=== PATIENT | male | born 1945 | race Caucasian/White ===

== ENCOUNTER 2016-10-19 03:42 | Inpatient (IN) | payer MEDICARE ==
[~2016-10-19] VITALS: Ht 170.2 cm; Wt 89.0 kg
[2016-10-19] VITALS (7 sets, daily range): BP systolic 100–110; BP diastolic 46–73
[~2016-10-19 03:42] MED LIST: ASPI-482 PO; Hydrocodone/Acetaminophen PO; METO25TA2 PO; MILK200C2 PO; OMEG1CAP27 PO; SIMV40TA PO; TAMS0.4C97 PO; UBID200C7 PO
[2016-10-19 04:13] LABS: BASO % 1 % (0-3); EOS % 1 % (0-3); HEMATOCRIT 44.7 % (39.0-53.0); LYMPH # 1.7 x10^3/uL (1.0-4.8); LYMPH % 25 % (24-48); MEAN CORPUSCULAR HEMOGLOBIN 30 pg (25-35); MEAN CORPUSCULAR HGB CONC 34 g/dL (31-37); MEAN CORPUSCULAR VOLUME 89 fL (79-100); MONO % 10 % (0-9); NEUT % 62 % (31-73); PLATELET COUNT 114 x10^3/uL (140-400); RED BLOOD COUNT 5.02 x10^6/uL (4.30-5.70); RED CELL DISTRIBUTION WIDTH 14.6 % (11.5-14.5); WHITE BLOOD COUNT 6.9 x10^3/uL (4.0-11.0)
[2016-10-19] MEDS ORDERED: ONDANSETRON PF 4 MG/2 ML VIAL. IV ONE (04:15)
[2016-10-19] MEDS ORDERED: LIDO:MAALOX:DONNATAL 1:1:1 15 ML SINGLE DOSE SWSW ONE (04:15)
[2016-10-19 04:26] LABS: CALCIUM 8.5 mg/dL (8.5-10.1); GFR 73.2; POTASSIUM 4.1 mmol/L (3.5-5.1)
[2016-10-19 04:32] LABS: ALBUMIN 3.8 g/dL (3.4-5.0); ALBUMIN/GLOBULIN RATIO 1.4 (1.0-1.7); TOTAL BILIRUBIN 0.6 mg/dL (0.2-1.0); TOTAL PROTEIN 6.5 g/dL (6.4-8.2)
--- NOTE | 2016-10-19 05:03 | PHYS DOC ---
Past Medical History Past Medical History: Hypertension, Kidney Stone, NM, Other Additional Past Medical Histor: NM(12-15 YRS AGO) Past Surgical History: Cholecystectomy, Other Additional Past Surgical Histo: cardiac stents Alcohol Use: None Drug Use: None Adult General Chief Complaint Chief Complaint: CHEST PAIN HPI HPI Patient is a 71 year old gentleman who presents here today complaining of midepigastric chest pain and a burning sensation as well as heart palpitations. Patient reports she was feeling dizzy and weak earlier today. Patient is also complaining of indigestion. Patient with a past medical history significant for coronary artery disease. Patient reports he had stents put in approximately 12 years ago. Patient reports when he had his stents put in his symptoms were somewhat similar to today symptoms. Patient reports he actually recommended for right lower abdominal pain approximately 12 years ago and also indigestion at that time he was diaphoretic and they determined that he was having a heart attack. Patient denies any liver longer kidney problems. Patient reports she does have a history of hypertension. Patient denies any abdominal surgeries. Patient has no known drug allergies. Patient is on aspirin and Toprol and Zocor. Patient has any fevers shakes chills. Patient reports she was feeling nauseous and short of breath with the discomfort. Patient has any vomiting or diarrhea. Patient has any cough cold runny nose. Patient's physical exam was unremarkable. Patient's heart was regular rate and rhythm. Lungs were clear. No wheezing rales or rhonchi. Patient did have multiple episodes of bigeminy on the EKG. During which time he does report palpitations in his chest and some dizziness. Patient's ER workup was unremarkable. Patient's initial EKG was consistent with bigeminy. A repeat EKG was done which revealed normal sinus rhythm at a heart rate of [address]-T wave abnormalities with no evidence of ST elevation NM. Patient's labs were all negative. Patient's troponin was negative. Patient's CBC and chemistry are all negative as well. Assessment and plan #1 71-year-old gentleman with nonspecific chest pain with a significant cardiac risk factors for prior NM. Patient presents here today with symptoms similar to his prior NM pain that he had approximately 12 years ago. Patient will be admitted to the hospital for further evaluation. Patient is high risk for coronary artery disease given his symptoms and his history. Review of Systems Review of Systems Constitutional: Denies fever or chills [] Eyes: Denies change in visual acuity, redness, or eye pain [] HENT: Denies nasal congestion or sore throat [] All other review systems are negative except as documented in the history of present illness portion. Current Medications Current Medications Current Medications Medications (Trade) Dose Ordered Sig/Kaylie Start Time Stop Time Status Last Admin Dose Admin Multi-Ingredient Mouthwash/Gargle (Gi Cocktail Single Dose) 15 ml 1X ONCE 10/19/16 04:15 10/19/16 04:16 DC 10/19/16 04:17 15 ML Ondansetron HCl (Zofran) 4 mg 1X ONCE 10/19/16 04:15 10/19/16 04:16 DC 10/19/16 04:31 4 MG Allergies Allergies Allergies Coded Allergies Type Severity Reaction Last Updated Verified No Known Drug Allergies 03/03/14 No Physical Exam Physical Exam Constitutional: Well developed, well nourished, no acute distress, non-toxic appearance. [] HENT: Normocephalic, atraumatic, bilateral external ears normal, oropharynx moist, no oral exudates, nose normal. [] Eyes: PERRLA, EOMI, conjunctiva normal, no discharge. [] Neck: Normal range of motion, no tenderness, supple, no stridor. [] Cardiovascular:Heart rate regular rhythm, no murmur [] Lungs & Thorax: Bilateral breath sounds clear to auscultation [] Abdomen: Bowel sounds normal, soft, no tenderness, no masses, no pulsatile masses. [] Skin: Warm, dry, no erythema, no rash. [] Back: No tenderness, no CVA tenderness. [] Extremities: No tenderness, no cyanosis, no clubbing, ROM intact, no edema. [] Neurologic: Alert and oriented X 3, normal motor function, normal sensory function, no focal deficits noted. [] Psychologic: Affect normal, judgement normal, mood normal. [] Current Patient Data Vital Signs Vital Signs Date Time Temp Pulse Resp B/P (MAP) Pulse Ox O2 Delivery O2 Flow Rate FiO2 10/19/16 03:45 98.0 101 18 140/71 (94) 94 Room Air 98.0 Lab Values Laboratory Tests Test 10/19/16 03:55 White Blood Count 6.9 x10^3/uL (4.0-11.0) Red Blood Count 5.02 x10^6/uL (4.30-5.70) Hemoglobin 15.0 g/dL (13.0-17.5) Hematocrit 44.7 % (39.0-53.0) Mean Corpuscular Volume 89 fL (79-100) Mean Corpuscular Hemoglobin 30 pg (25-35) Mean Corpuscular Hemoglobin Concent 34 g/dL (31-37) Red Cell Distribution Width 14.6 % (11.5-14.5) H Platelet Count 114 x10^3/uL (140-400) L Neutrophils (%) (Auto) 62 % (31-73) Lymphocytes (%) (Auto) 25 % (24-48) Monocytes (%) (Auto) 10 % (0-9) H Eosinophils (%) (Auto) 1 % (0-3) Basophils (%) (Auto) 1 % (0-3) Neutrophils # (Auto) 4.3 x10^3uL (1.8-7.7) Lymphocytes # (Auto) 1.7 x10^3/uL (1.0-4.8) Monocytes # (Auto) 0.7 x10^3/uL (0.0-1.1) Eosinophils # (Auto) 0.1 x10^3/uL (0.0-0.7) Basophils # (Auto) 0.0 x10^3/uL (0.0-0.2) D-Dimer (Ana) 0.56 ug/mlFEU (0.00-0.50) H Sodium Level 140 mmol/L (136-145) Potassium Level 4.1 mmol/L (3.5-5.1) Chloride Level 105 mmol/L (98-107) Carbon Dioxide Level 27 mmol/L (21-32) Anion Gap 8 (6-14) Blood Urea Nitrogen 13 mg/dL (8-26) Creatinine 1.0 mg/dL (0.7-1.3) Estimated GFR (Cockcroft-Gault) 73.2 BUN/Creatinine Ratio 13 (6-20) Glucose Level 117 mg/dL (70-99) H Calcium Level 8.5 mg/dL (8.5-10.1) Total Bilirubin 0.6 mg/dL (0.2-1.0) Aspartate Amino Transferase (AST) 19 U/L (15-37) Alanine Aminotransferase (ALT) 15 U/L (16-63) L Alkaline Phosphatase 72 U/L (46-116) Troponin I Quantitative < 0.017 ng/mL (0.000-0.055) Total Protein 6.5 g/dL (6.4-8.2) Albumin 3.8 g/dL (3.4-5.0) Albumin/Globulin Ratio 1.4 (1.0-1.7) Lipase 156 U/L (73-393) Laboratory Tests 10/19/16 03:55 Laboratory Tests 10/19/16 03:55 EKG EKG [] Radiology/Procedures Radiology/Procedures [] Course & Med Decision Making Course & Med Decision Making Pertinent Labs and Imaging studies reviewed. (See chart for details) [] Dragon Disclaimer Dragon Disclaimer This electronic medical record was generated, in whole or in part, using a voice recognition dictation system. Departure Departure Impression: Primary Impression: Unstable angina Disposition: ADMITTED INPATIENT Admitting Physician: Isabel Noble Condition: IMPROVED Referrals: UNKNOWN PCP NAME (PCP) GULSHAN HAYWOOD MD Oct 19, 2016 05:03
[2016-10-19] MEDS ORDERED: METO25TA9 PO (05:38)
[2016-10-19] MEDS ORDERED: SIMV40TA PO (05:38)
[2016-10-19] MEDS ORDERED: NITROGLYCERIN SUBLINGUAL 0.4 MG BOTTLE OF 25. SL PRN (05:45)
--- NOTE | 2016-10-19 05:46 | ACF ---
Admission Forms Criteria CARDIOLOGY GRG Clinical Indications for Admission to Inpatient Care ( Place 'X' for any and all applicable criteria): Hospital admission is needed for appropriate care of the patient because of ANY ONE of the following (1): [ ] I. Hemodynamic instability as indicated by ALL of the following (1)(2)(3) (4)(5) [ ]a) Vital signs or other findings not as expected for chronic patient condition or baseline [ ]b) Instability indicated by ANY ONE of the following: [ ]i) Hypotension [ ]ii) Symptomatic Tachycardia unresponsive to treatment ( e.g., analgesia, fluids, sedation as indicated) [ ]iii) Inadequate perfusion indicated by ANY ONE of the following: [ ] 1) Lactic acidosis (> 2 mmol/L) [ ] 2) New abnormal capillary refill (> 3 seconds) [ ] 3) Reduced urine output [ ] 4) New altered mental status [ ]iv) Orthostatic vital sign changes unresponsive to treatment (e.g., fluids) [ ]v) IV inotropic or vasopressor medication required to maintain adequate blood pressure or perfusion [ ] II. Severe heart failure as indicated by ANY ONE of the following(17)(18) [ ]a) Respiratory distress [ ]b) Hypotension [ ]c) Anasarca (refractory to outpatient therapy) [ ]d) Cardiac arrhythmias of immediate concern [ ]e) Myocardial ischemia [ ] III. Cardiac arrhythmias or findings of immediate concern indicated by ANY ONE of the following (19)(20): [ ] a) Heart rhythms that are inherently dangerous or unstable indicated by ANY ONE of the following (21)(22)(23): [ ] i) Resuscitated ventricular fibrillation or cardiac arrest [ ] ii) Ventricular escape rhythm [ ] iii) Sustained ventricular tachycardia (30 seconds or more of ventricular rhythm at greater than 100 beats per minute) [ ] iv) Nonsustained ventricular tachycardia and ANY ONE of the following: [ ] 1) Suspected cardiac ischemia as cause or consequence of ventricular tachycardia [ ] 2) In setting of acute myocarditis [ ] b) Unstable cardiac conduction defects indicated by ANY ONE of the following(23)(24)(25) [ ] i) Type II second-degree atrioventricular block [ ]ii) Third-degree atrioventricular block [ ]iii) New-onset left bundle branch block with suspected myocardial ischemia [ ]c) Any heart rhythm and ANY ONE of the following (21)(22)(26)(27) (28) [ ] i) Continuous long-term ECG monitoring needed (e.g., initiation of drug requiring monitoring for more than 24 hours) [ ] ii) Patient has automatic implanted cardioverter defibrillator that is repeatedly firing, malfunctioning, or in need of immediate adjustment of settings beyond the scope of ambulatory or observation care [ ]d) Heart rhythms of concern due to ANY ONE of the following: [ ] i) Hypotension [ ] ii) Respiratory distress [ ] iii) Association with other significant symptoms (e.g., bradycardia with syncope or ongoing dizziness, supraventricular tachycardia with chest pain (14)(15)(17) [ ] IV. Monitoring for cardiac contusion beyond the scope of observation care needed [A](30)(31)(32) [ ] V. Surgical or device complication (e.g., valve replacement complication , pacemaker dysfunction) (35)(41)(44)(45)(46) [ ] . Inpatient palliative care needed. [B](49) Also use Inpatient Palliative Care Criteria [ ] VII. Nonbacterial thrombotic (marantic) endocarditis (36)(43)(47)(48) [X] VIII. Cardiology condition, symptom, or finding for which emergency and observation care has failed or are not considered appropriate. [ ] IX. Acute valvular disease requiring inpatient as indicated by ANY ONE of the following (41) [ ]a) Acute valvular regurgitation (42) [ ]b) Noninfectious valvulitis (43) [ ]c) Obstructive valve thrombosis [ ]d) Paravalvular leak [ ]e) Other significant valvular disorder remaining after emergency or observation level of care (as appropriate) [ ]X. Pericardial disease requiring inpatient treatment as indicated by ANY ONE of the following (33)(34)(35)(36)(37) [ ]a) Suspected tamponade (38)(39)(40) [ ]b) Hemopericardium [ ]c) Other significant pericardial disorder remaining after emergency or observation level of care (as appropriate) [ ] XI. Cardiac ischemia beyond scope of emergency and observation care. [ ] XII. Hypertension requiring inpatient treatment as indicated by ANY ONE of the following (6)(7)(8) [ ]a) SBP greater than 220 mm Hg or DBP greater than 120 mmHg despite treatment [ ]b) SBP greater than 140 mm Hg or DBP greater than 100 mm Hg with evidence of acute end organ damage as indicated by ANY ONE of the following [ ] i) Encephalopathy [ ] ii) Acute renal failure as indicated by new onset of ANY ONE of the following (9)(10)(11)(12)(13) [ ]1) 3-fold rise in serum creatinine from baseline [ ]2) Serum creatinine greater than 4 mg/dL ( 354 micromoles/L) with acute rise greater than 0.5 mg/dL (44.2 micromoles/L) [ ]3) Reduction of more than 75% in estimated glomerular filtration rate from baseline [ ]4) Estimated glomerular filtration rate less than 35 mL/min/1.73m2 (0.59 mL/sec/1.73m2) in child up to 18 years of age [ ]5) Cessation of urine output indicated by ALL of the following [ ]A. Adequate volume status [ ]B. Inadequate urine output as indicated by ANY ONE of the following [ ]a. Urine output less than 0.3 mL/kg/hr for 24 hours [ ]b. Anuria (urine output less than 0.1 mL/kg/hr) for 12 hours [ ] iii) Aortic dissection [ ] iv) Myocardial Ischemia [ ] v) Left ventricular heart failure [ ]vi) Retinal Hemorrhage [ ]vii) Other significant finding [ ]c) Hypertension in child requiring inpatient treatment as indicated by ALL of the following(14)(15)(16) [ ] i) Outpatient treatment not effective, not available, or not appropriate [ ]ii) SBP or DBP greater than 95th percentile for age [ ]iii) Evidence of acute end organ damage as indicated by ANY ONE of the following [ ]1) Altered mental status [ ]2) Acute renal failure as indicated by new onset of ANY ONE of the following(9)(10)(11)(12)(13) [ ]A. 3-fold rise in serum creatinine from baseline [ ]B. Serum creatinine greater than 4 mg/dL (354 micromoles/L) with acute rise greater than 0.5 mg/dL (44.2 micromoles/L) [ ]C. Reduction of more than 75% in estimated glomerular filtration rate from baseline [ ]D. Estimated glomerular filtration rate less than 35 mL/min/1.73m2 (0.59 mL/sec/1.73m2) in child up to 18 years of age [ ]E. Cessation of urine output indicated by ALL of the following [ ]a. Adequate volume status [ ]b. Inadequate urine output as indicated by ANY ONE of the following [ ]i) Urine output less than 0.3 mL/kg/hr for 24 hours [ ]ii) Anuria ( urine output less than 0.1 mL/kg/hr) for 12 hours [ ]3) Severe headache [ ]4) Visual disturbance [ ]5) Retinal hemorrhage [ ]6) Other significant finding [ ]XIII. Complications of transplanted heart indicated by ANY ONE of the following(61): [ ]a) Acute graft rejection requiring inpatient management (eg, intravenous immunosuppression)(62)(63) [ ]b) Acute graft heart failure indicated by ANY ONE of the following(64): [ ]i) Hemodynamic instability [ ]ii) Cardiac arrhythmias of immediate concern [ ]iii) Pulmonary edema that is very severe (eg, mechanical ventilation needed, imminent or likely, need for 100% oxygen to keep oxygen saturation above 90%) [ ]iv) Pulmonary edema that is persistent as indicated by ALL of the following: [ ]1) New need for oxygen therapy to keep oxygen saturation above 90% (or increased FiO2 need from baseline) [ ]2) Has not improved sufficiently with emergency department or observation care IV diuretics or other heart failure treatments[E] [ ]v) Altered mental status that is severe or persistent [ ]vi) Increased creatinine (new on laboratory test) with reduction of more than 50% in estimated glomerular filtration rate from baseline [ ]vii) Progressively (ongoing) rising creatinine (known from past laboratory test) with reduction of more than 25% in estimated glomerular filtration rate from baseline [ ]viii) Acute renal failure [ ]ix) Acute peripheral ischemia (eg, examination shows pulseless, cool, mottled, or cyanotic extremity) [ ]x) Pulmonary artery catheter monitoring needed [ ]xi) Other sign or symptom of heart failure requiring inpatient treatment (ie, too severe or not responsive to outpatient and observation care treatment) [ ]c) Infection requiring inpatient management (eg, Hemodynamic instability, need for intravenous antimicrobial treatment)(66)(67)(68)(69)(70) [ ]d) Cardiac allograft vasculopathy requiring inpatient management ( eg evidence of cardiac ischemia)(71) [ ]e) Other complication of transplanted heart (eg, stroke, severe pulmonary hypertension, severe valvular dysfunction) requiring inpatient management(72) The original [facility] content created by [facility] has been revised. The portions of the content which have been revised are identified through the use of italic text or in bold, and [facility] has neither reviewed nor approved the modified material. All other unmodified content is copyright [facility]. Please see references footnoted in the original [facility] edition 2016 Admission Criteria Met?: Yes GILBERT SANDHU Oct 19, 2016 05:46
[2016-10-19] MEDS ORDERED: ACETAMINOPHEN 325 MG TABLET. PO PRN ×2 (06:00→17:15)
[2016-10-19] MEDS ORDERED: MORPHINE SULFATE 2 MG/ML DISP.SYRIN. IV PRN (06:00)
[2016-10-19] MEDS ORDERED: ONDANSETRON PF 4 MG/2 ML VIAL. IV PRN ×2 (06:00→17:15)
[2016-10-19] MEDS: IV NORMAL SALINE 1000ML BAG 1,000 ML IV SCH ×3 (06:15→22:00)
--- NOTE | 2016-10-19 06:36 | EKG ---
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
--- NOTE | 2016-10-19 07:28 | RAD ---
EXAM: Chest one view. HISTORY: Chest pain. COMPARISON: 11/15/2003. FINDINGS: A frontal view of the chest is obtained. Mild airspace opacities in the left greater than right bases may indicate atelectasis or mild infiltrates. The inspiration is small. There is no pneumothorax or pleural effusion. The heart is not enlarged. IMPRESSION: 1. Correlate for evidence of infection to differentiate basilar atelectasis from mild infiltrates.
[2016-10-19] MEDS ORDERED: Citracal PO (07:39)
[2016-10-19] MEDS ORDERED: IOHEXOL 300 MG/ML 75 ML VIAL IV ONE (09:45)
[2016-10-19] MEDS ORDERED: CONTRAST GIVEN MC PRN (09:45)
--- NOTE | 2016-10-19 10:22 | EKG ---
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
[2016-10-19] MEDS ORDERED: MAG HYDROX/ALUMINUM HYD/SIMETH 30 ML ORAL.SUSP PO ONE (10:45)
[2016-10-19] MEDS ORDERED: PANTOPRAZOLE IV PUSH 40 MG VIAL. IVP ONE (10:45)
--- NOTE | 2016-10-19 10:48 | PDOC2 ---
CARDIAC CONSULT DATE OF CONSULT Date of Consult DATE: 10/19/16 TIME: 10:38 REASON FOR CONSULT Reason for Consult: chest pain REFERRING PHYSICIAN Referring Physician: Dr. Dana Cheung SOURCE Source: Chart review, Patient HISTORY OF PRESENT ILLNESS HISTORY OF PRESENT ILLNESS 71 year old male with a > 2 weeks history of worsening epigastric pain described as dull pain with radiation into back and associated with dyspnea , dizziness, and weakness. Has not treated with OTC meds. Saw chiropractor for adjustment as he though a previous back injury involving a ladder was pressing on his hiatal hernia and causing his symptoms. Troponin level not consistent with AMI and no acute changes in EKG. Frequent PVCs and PACs on telemetry. Reason for Visit: CP PAST MEDICAL HISTORY Cardiovascular: HTN, AL (stents X 2 to unknown targets 15 years ago), Hyperlipidemia Pulmonary: No pertinent hx CENTRAL NERVOUS SYSTEM: Other (none) GI: GERD (?; with HH) Heme/Onc: No pertinent hx Hepatobiliary: No pertinent hx Psych: No pertinent hx Musculoskeletal: low back pain (surgery to L4-L5), Osteoarthritis Infectious disease: No pertinent hx ENT: No pertinent hx Renal/: Other (renal calculi) Endocrine: No pertinent hx Dermatology: No pertinent hx PAST SURGICAL HISTORY Past Surgical History: Tonsillectomy, Other (lumbar laminectomy) FAMILY HISTORY Family History negative for CAD SOCIAL HISTORY Smoke: Quit (15 years ago) ALCOHOL: occassional (6 pack of beer per month) Drugs: None CURRENT MEDICATIONS CURRENT MEDICATIONS Current Medications Medications (Trade) Dose Ordered Sig/Kaylie Route PRN Reason Start Time Stop Time Status Last Admin Dose Admin Ondansetron HCl (Zofran) 4 mg 1X ONCE IV 10/19/16 04:15 10/19/16 04:16 DC 10/19/16 04:31 Multi-Ingredient Mouthwash/Gargle (Gi Cocktail Single Dose) 15 ml 1X ONCE SWSW 10/19/16 04:15 10/19/16 04:16 DC 10/19/16 04:17 Sodium Chloride 1,000 ml @ 125 mls/hr Q8H IV 10/19/16 06:00 10/20/16 05:59 10/19/16 06:15 Iohexol (Omnipaque 300 Mg/ml) 75 ml 1X ONCE IV 10/19/16 09:45 10/19/16 09:46 DC 10/19/16 10:04 ALLERGIES ALLERGIES: Coded Allergies: No Known Drug Allergies (Unverified , 03/03/14) ROS Review of System 14 point review with pertinent positives in HPI PHYSICAL EXAM General: Alert, Oriented X3, Cooperative, No acute distress HEENT: Atraumatic, PERRLA Lungs: Clear to auscultation, Normal air movement Heart: Regular rate, Normal S1, Normal S2, No murmurs, Other (no carotid bruits ) Abdomen: Normal bowel sounds Extremities: No edema, Normal pulses Skin: No rashes Neuro: Normal speech Psych/Mental Status: Mood NL MUSCULOSKELETAL: Osteoarthritic changes both hands VITALS VITALS Vital Signs Date Time Temp Pulse Resp B/P (MAP) Pulse Ox O2 Delivery O2 Flow Rate FiO2 10/19/16 07:00 Room Air 10/19/16 07:00 98.7 67 26 108/73 (85) 94 98.7 LABS Lab: Laboratory Tests Test 10/19/16 03:55 White Blood Count 6.9 x10^3/uL (4.0-11.0) Red Blood Count 5.02 x10^6/uL (4.30-5.70) Hemoglobin 15.0 g/dL (13.0-17.5) Hematocrit 44.7 % (39.0-53.0) Mean Corpuscular Volume 89 fL (79-100) Mean Corpuscular Hemoglobin 30 pg (25-35) Mean Corpuscular Hemoglobin Concent 34 g/dL (31-37) Red Cell Distribution Width 14.6 % (11.5-14.5) Platelet Count 114 x10^3/uL (140-400) Neutrophils (%) (Auto) 62 % (31-73) Lymphocytes (%) (Auto) 25 % (24-48) Monocytes (%) (Auto) 10 % (0-9) Eosinophils (%) (Auto) 1 % (0-3) Basophils (%) (Auto) 1 % (0-3) Neutrophils # (Auto) 4.3 x10^3uL (1.8-7.7) Lymphocytes # (Auto) 1.7 x10^3/uL (1.0-4.8) Monocytes # (Auto) 0.7 x10^3/uL (0.0-1.1) Eosinophils # (Auto) 0.1 x10^3/uL (0.0-0.7) Basophils # (Auto) 0.0 x10^3/uL (0.0-0.2) D-Dimer (Ana) 0.56 ug/mlFEU (0.00-0.50) Sodium Level 140 mmol/L (136-145) Potassium Level 4.1 mmol/L (3.5-5.1) Chloride Level 105 mmol/L (98-107) Carbon Dioxide Level 27 mmol/L (21-32) Anion Gap 8 (6-14) Blood Urea Nitrogen 13 mg/dL (8-26) Creatinine 1.0 mg/dL (0.7-1.3) Estimated GFR (Cockcroft-Gault) 73.2 BUN/Creatinine Ratio 13 (6-20) Glucose Level 117 mg/dL (70-99) Calcium Level 8.5 mg/dL (8.5-10.1) Magnesium Level 2.2 mg/dL (1.8-2.4) Total Bilirubin 0.6 mg/dL (0.2-1.0) Aspartate Amino Transf (AST/SGOT) 19 U/L (15-37) Alanine Aminotransferase (ALT/SGPT) 15 U/L (16-63) Alkaline Phosphatase 72 U/L (46-116) Troponin I Quantitative < 0.017 ng/mL (0.000-0.055) Total Protein 6.5 g/dL (6.4-8.2) Albumin 3.8 g/dL (3.4-5.0) Albumin/Globulin Ratio 1.4 (1.0-1.7) Lipase 156 U/L (73-393) IMAGES IMAGES CXR: Mild airspace opacities in the left greater than right bases may indicate atelectasis or mild infiltrates. The inspiration is small. There is no pneumothorax or pleural effusion. The heart is not enlarged. IMPRESSION: 1. Correlate for evidence of infection to differentiate basilar atelectasis from mild infiltrates. EKG EKG no acute changes; PVCs, PACs ASSESSMENT/PLAN ASSESSMENT/PLAN 1. CP vs epigastric pain EKG and troponin levels not consistent with AMI CAD history with previous stents echo to evaluate LV function and assess for valvular disease pharm MPI to evaluate for ischemia mylanta X 1; IV PPI X 1 2. ventricular ectopy K and Mg WNL resume BB when MPI completed 3. HTN resume meds 4. HLD check FLP continue statin therapy 5. ? 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
[2016-10-19 11:15] LABS: CHOLESTEROL/HDL RATIO 3.3
[2016-10-19] MEDS ORDERED: REGADENOSON 0.4 MG/5 ML DISP.SYRIN. IV ONE (11:15)
--- NOTE | 2016-10-19 13:12 | RAD ---
CTA of the chest with contrast (pulmonary embolism protocol) 10/19/2016 Clinical History: Elevated d-dimer. Tachycardia.. Technique: After the intravenous administration of 75 mL of Isovue-370, contiguous, 2 mm axial sections were obtained through the chest. 3-D MIP coronal and sagittal reconstructed images were obtained. One or more of the following individualized dose reduction techniques were utilized for this study: 1. Automated exposure control. 2. Adjustment of the mA and/or kV according to patient size. 3. Use of iterative reconstruction technique. Findings: No filling defects are seen within the major branches of either pulmonary artery. There is no CT evidence of pulmonary embolism. The heart is mildly enlarged. Scattered atherosclerotic plaque formation is seen along the thoracic aorta and its branches. The thoracic aorta is tortuous but tapers normally. Fairly extensive coronary artery calcifications are seen. Dependent subsegmental atelectasis seen involving both lungs. No area of consolidation, pneumothorax or pleural effusion is noted. Impression: There is no CT evidence of pulmonary embolism.
--- NOTE | 2016-10-19 14:58 | PDOC2 ---
GI CONSULT Reason For Consult: Epigastric pain HPI: HPI: 71 y/o male w/ dizziness, fatigue, and palpitations recently, additionally a long h/o epigastric discomfort attributed to hiatal hernia. Has seen cardiology , had echocardiogram and attempted MPI which was incomplete due to back pain ( chronic from injury). Denies reflux and heartburn, has tried meds for this in the past (unsure which ones), doesn't feel they help epigastric pain. Pain is sometimes worse after eating but can occur randomly. Can radiate to RUQ and toward back, again he attributes this to previous back injury. Had gallbladder workup with his PCP at one point, recalls ultrasound, not sure about HIDA, was told results normal. EGD and colonoscopy years ago, believes normal as well. No NSAID use. Some bloating after eating. Additional h/o constipation improved w/ suppositories and Metamucil. No n/v, weight loss, hematochezia, melena. Occasionally feels large pills "hang up" in midchest/epigastrium. PMH: PMH: HTN, OH (stents X 2), HLD, hiatal hernia, chronic back pain w/ injury (ladder fell on him) years ago, OA, nephrolithiasis, tonsillectomy, lumbar laminectomy FH: Family History: No pertinent hx (no GI cancers) Social History: Smoke: Quit (15 years ago) ALCOHOL: other (other notes suggest 6 pack of beer per month, tells me no alcohol x 15 years) Drugs: None ROS: GEN: +fatigue HEENT: Denies blurred vision, sore throat CV: +palpitations RESP: Denies shortness of air, cough GI: Per HPI : Denies hematuria, dysuria ENDO: Denies weight changes NEURO: Denies confusion, dizziness MSK: +weak +back pain SKIN: Denies jaundice, pruritus Vitals: Vitals: Vital Signs Date Time Temp Pulse Resp B/P (MAP) Pulse Ox O2 Delivery O2 Flow Rate FiO2 10/19/16 14:20 86 27 100/46 (64) 94 Room Air 10/19/16 07:00 98.7 98.7 Labs: Labs: Laboratory Tests Test 10/19/16 03:55 10/19/16 12:04 White Blood Count 6.9 x10^3/uL (4.0-11.0) Red Blood Count 5.02 x10^6/uL (4.30-5.70) Hemoglobin 15.0 g/dL (13.0-17.5) Hematocrit 44.7 % (39.0-53.0) Mean Corpuscular Volume 89 fL (79-100) Mean Corpuscular Hemoglobin 30 pg (25-35) Mean Corpuscular Hemoglobin Concent 34 g/dL (31-37) Red Cell Distribution Width 14.6 % (11.5-14.5) Platelet Count 114 x10^3/uL (140-400) Neutrophils (%) (Auto) 62 % (31-73) Lymphocytes (%) (Auto) 25 % (24-48) Monocytes (%) (Auto) 10 % (0-9) Eosinophils (%) (Auto) 1 % (0-3) Basophils (%) (Auto) 1 % (0-3) Neutrophils # (Auto) 4.3 x10^3uL (1.8-7.7) Lymphocytes # (Auto) 1.7 x10^3/uL (1.0-4.8) Monocytes # (Auto) 0.7 x10^3/uL (0.0-1.1) Eosinophils # (Auto) 0.1 x10^3/uL (0.0-0.7) Basophils # (Auto) 0.0 x10^3/uL (0.0-0.2) D-Dimer (Ana) 0.56 ug/mlFEU (0.00-0.50) Sodium Level 140 mmol/L (136-145) Potassium Level 4.1 mmol/L (3.5-5.1) Chloride Level 105 mmol/L (98-107) Carbon Dioxide Level 27 mmol/L (21-32) Anion Gap 8 (6-14) Blood Urea Nitrogen 13 mg/dL (8-26) Creatinine 1.0 mg/dL (0.7-1.3) Estimated GFR (Cockcroft-Gault) 73.2 BUN/Creatinine Ratio 13 (6-20) Glucose Level 117 mg/dL (70-99) Calcium Level 8.5 mg/dL (8.5-10.1) Magnesium Level 2.2 mg/dL (1.8-2.4) Total Bilirubin 0.6 mg/dL (0.2-1.0) Aspartate Amino Transf (AST/SGOT) 19 U/L (15-37) Alanine Aminotransferase (ALT/SGPT) 15 U/L (16-63) Alkaline Phosphatase 72 U/L (46-116) Troponin I Quantitative < 0.017 ng/mL (0.000-0.055) < 0.017 ng/mL (0.000-0.055) Total Protein 6.5 g/dL (6.4-8.2) Albumin 3.8 g/dL (3.4-5.0) Albumin/Globulin Ratio 1.4 (1.0-1.7) Triglycerides Level 136 mg/dL (0-150) Cholesterol Level 137 mg/dL (0-200) LDL Cholesterol, Calculated 68 mg/dL (0-100) VLDL Cholesterol, Calculated 27 mg/dL (0-40) Non-HDL Cholesterol Calculated 95 mg/dL (0-129) HDL Cholesterol 42 mg/dL (40-60) Cholesterol/HDL Ratio 3.3 Lipase 156 U/L (73-393) Thyroid Stimulating Hormone (TSH) 0.961 uIU/mL (0.358-3.74) Allergies: Coded Allergies: No Known Drug Allergies (Unverified , 03/03/14) Medications: Current Medications Medications (Trade) Dose Ordered Sig/Kaylie Route PRN Reason Start Time Stop Time Status Last Admin Dose Admin Ondansetron HCl (Zofran) 4 mg 1X ONCE IV 10/19/16 04:15 10/19/16 04:16 DC 10/19/16 04:31 Multi-Ingredient Mouthwash/Gargle (Gi Cocktail Single Dose) 15 ml 1X ONCE SWSW 10/19/16 04:15 10/19/16 04:16 DC 10/19/16 04:17 Sodium Chloride 1,000 ml @ 125 mls/hr Q8H IV 10/19/16 06:00 10/20/16 05:59 10/19/16 06:15 Iohexol (Omnipaque 300 Mg/ml) 75 ml 1X ONCE IV 10/19/16 09:45 10/19/16 09:46 DC 10/19/16 10:04 Pantoprazole Sodium (Protonix Vial) 40 mg 1X ONCE IVP 10/19/16 10:45 10/19/16 10:46 DC 10/19/16 11:26 Al Hydroxide/Mg Hydroxide (Mylanta Plus Xs) 30 ml 1X ONCE PO 10/19/16 10:45 10/19/16 10:46 DC 10/19/16 11:27 Imaging: Imaging: Chest CTA 10/19/16 Impression: There is no CT evidence of pulmonary embolism. CXR IMPRESSION: 1. Correlate for evidence of infection to differentiate basilar atelectasis from mild infiltrates. Echocardiogram 10/19/16 PENDING MPI 10/19/16 PE: GEN: NAD, up to chair HEENT: Atraumatic, PERRL LUNGS: clear anteriorly HEART: irregular ABD: BS+, epigastric/RUQ tenderness EXTREMITY: No edema SKIN: No rashes, no jaundice NEURO/PSYCH: A & O 3 A/P: A/P: Palpitations, weakness, fatigue -per cardiology Chest/epigastric pain -h/o hiatal hernia, long h/o similar pain attributed to this -denies reflux/heartburn, has tried meds for this in the past -has had gallbladder imaging in the past w/ PCP, says normal -EGD long ago as well -?worse after eating, bloating Constipation -treated w/ OTC products CRC screen -reports normal colonoscopy years ago -- Chronic pain and h/o hiatal hernia, seems GERD possible. Continue cardiology workup. Consider EGD later on. Will start PPI and add Miralax. JORDON RODARTE Oct 19, 2016 14:58
--- NOTE | 2016-10-19 15:03 | CARD ---
APPROVED REPORT EXAM: Two-dimensional and M-mode echocardiogram with Doppler and color Doppler. Other Information Quality : FairHR: 87bpm Rhythm : Arrhythmia INDICATION Cardiac Disease: CAD Chest Pain 2D DIMENSIONS RVDd3.4 (2.9-3.5cm)Left Atrium(2D)4.2 (1.6-4.0cm) IVSd1.0 (0.7-1.1cm)Aortic Root(2D)2.9 (2.0-3.7cm) LVDd5.2 (3.9-5.9cm)LVOT Diameter2.4 (1.8-2.4cm) PWd0.9 (0.7-1.1cm)LVDs3.5 (2.5-4.0cm) FS (%) 33.0 %SV77.7 ml LVEF(%)61.2 (>50%) Aortic Valve AoV Peak Kong.138.5cm/sAoV VTI28.9cm AO Peak GR.7.7mmHgLVOT VTI 22.31cm AO Mean GR.4mmHgAI P 1/2 [id number] Mitral Valve MV E Ojadwqel96.7cm/sMV E Peak Gr.2mmHg MV DECEL [id number] A Ioiicxub70.1cm/s MV E Mean Gr.1mmHgE/A Ratio1.3 MV A [id number] TDI Medial E' P. V8.04cm/sE/Medial E'9.9 Tricuspid Valve TR P. Yspqgrel885ub/sRAP [id number] TR Peak Gr.21mmHg Pulmonary Vein S1 Iniaauem45.5cm/sPVa [id number] LEFT VENTRICLE The left ventricle is normal size. There is normal left ventricular wall thickness. The left ventricu lar systolic function is normal. EF 55% Grossly normal wall motion. Transmitral Doppler flow pattern is Grade II-pseudonormal filling dynamics. No left ventricle thrombus noted on this study. RIGHT VENTRICLE The right ventricle is normal size. There is normal right ventricular wall thickness. The right ventr icular systolic function is normal. ATRIA The left atrium is mildly dilated. The right atrium size is normal. The interatrial septum is intact with no evidence for an atrial septal defect or patent foramen ovale as noted on 2-D or Doppler imagi ng. AORTIC VALVE The aortic valve is mildly sclerotic. The aortic valve is trileaflet. Doppler and Color Flow revealed mild aortic regurgitation. There is no significant aortic valvular stenosis. MITRAL VALVE The mitral valve leaflets are mildly thickened. There is no evidence of mitral valve prolapse. There is no mitral valve stenosis. Doppler and Color Flow revealed mild mitral regurgitation. TRICUSPID VALVE Doppler and Color Flow revealed mild tricuspid regurgitation. The pulmonary artery systolic pressure is estimated at 25 mmHg. There is no pulmonary hypertension. PULMONIC VALVE Doppler and Color Flow revealed trace to mild pulmonic valvular regurgitation. There is no pulmonic v alvular stenosis. GREAT VESSELS The aortic root is normal in size. The ascending aorta is normal in size. The IVC is normal in size a nd collapses >50% with inspiration. PERICARDIAL EFFUSION There is no evidence of significant pericardial effusion. Critical Notification Critical Value: No <Conclusion> The left ventricular systolic function is grossly normal. EF 55% Wall motion grossly normal. Transmitral Doppler flow pattern is Grade II-pseudonormal filling dynamics. Doppler and Color Flow revealed mild aortic regurgitation.
[2016-10-19] MEDS ORDERED: BISACODYL 10 MG SUPP.RECT. PR PRN ×2 (15:45→16:15)
[2016-10-19] MEDS ORDERED: PSYLLIUM HUSK (SUGAR FREE) 1 PKT PACKET PO PRN (15:45)
[2016-10-19] MEDS ORDERED: PSYLLIUM HUSK (SUGAR FREE) 1 PKT PACKET PO SCH (15:45)
[2016-10-19] MEDS ORDERED: POLYETHYLENE GLYCOL 3350 17 GM PACKET. PO PRN (16:15)
--- NOTE | 2016-10-19 16:18 | PDOC1 ---
History and Physical Past Medical History Cardiovascular: HTN, CA (stents X 2 to unknown targets 15 years ago), Hyperlipidemia Pulmonary: No pertinent hx CENTRAL NERVOUS SYSTEM: Other (none) GI: GERD (?; with HH) Heme/Onc: No pertinent hx Hepatobiliary: No pertinent hx Psych: No pertinent hx Infectious disease: No pertinent hx ENT: No pertinent hx Renal/: Other (renal calculi) Endocrine: No pertinent hx Dermatology: No pertinent hx Past Surgical History Past Surgical History: Tonsillectomy, Other (lumbar laminectomy) Family History Family History NO Cancers Social History Smoke: Quit (15 years ago) ALCOHOL: other (other notes suggest 6 pack of beer per month, tells me no alcohol x 15 years) Drugs: None Current Problem List Problem List Problems Medical Problems: (1) Unstable angina Status: Acute Current Medications Current Medications Current Medications Medications (Trade) Dose Ordered Sig/Kaylie Start Time Stop Time Status Last Admin Dose Admin Acetaminophen (Tylenol) 650 mg PRN Q4HRS PRN 10/19/16 06:00 10/20/16 05:59 Al Hydroxide/Mg Hydroxide (Mylanta Plus Xs) 30 ml 1X ONCE 10/19/16 10:45 10/19/16 10:46 DC 10/19/16 11:27 30 ML Bisacodyl (Dulcolax Supp) 10 mg PRN DAILY PRN 10/19/16 16:15 Info (Do NOT chart on this entry -- for MONITORING) 1 each PRN DAILY PRN 10/19/16 09:45 10/21/16 09:44 Iohexol (Omnipaque 300 Mg/ml) 75 ml 1X ONCE 10/19/16 09:45 10/19/16 09:46 DC 10/19/16 10:04 75 ML Morphine Sulfate 2 mg PRN Q2HR PRN 10/19/16 06:00 10/20/16 05:59 Multi-Ingredient Mouthwash/Gargle (Gi Cocktail Single Dose) 15 ml 1X ONCE 10/19/16 04:15 10/19/16 04:16 DC 10/19/16 04:17 15 ML Nitroglycerin (Nitrostat) 0.4 mg PRN Q5MIN PRN 10/19/16 05:45 10/20/16 05:44 Ondansetron HCl (Zofran) 4 mg PRN Q8HRS PRN 10/19/16 06:00 10/20/16 05:59 Pantoprazole Sodium (Protonix Vial) 40 mg 1X ONCE 10/19/16 10:45 10/19/16 10:46 DC 10/19/16 11:26 40 MG Pantoprazole Sodium (Protonix) 40 mg DAILYAC 10/20/16 07:30 Polyethylene Glycol (miraLAX PACKET) 17 gm PRN DAILY PRN 10/19/16 16:15 Psyllium Hydrophilic Mucilloid (Metamucil Fiber Packet) 1 pkt DAILY PRN 10/19/16 15:45 Regadenoson (Lexiscan) 0.4 mg 1X ONCE 10/19/16 11:15 10/19/16 11:16 DC Sodium Chloride 1,000 ml @ 125 mls/hr Q8H 10/19/16 06:00 10/20/16 05:59 10/19/16 06:15 125 MLS/HR Allergies Allergies Allergies Coded Allergies Type Severity Reaction Last Updated Verified No Known Drug Allergies 03/03/14 No ROS Review of System CONSTITUTIONAL: No fever or chills EYES: No recent changes SKIN: No rash or itching CARDIOVASCULAR: No chest pain, syncope, but palpitations, dizziness RESPIRATORY: No SOB or cough GASTROINTESTINAL: No nausea, vomiting or abdominal pain NEUROLOGICAL: No headaches or weakness ENDOCRINE: No cold or heat intolerance GENITOURINARY: No urgency or frequency of urination MUSCULOSKELETAL: No back pain or joint pain LYMPHATICS: No enlarged lymph nodes PSYCHIATRIC: No anxiety or depression Physical Exam Physical Exam GEN.: No apparent distress. Alert and oriented times 3 HEENT: Head is normocephalic, atraumatic NECK: Supple. no JVD LUNGS: Clear to auscultation. HEART: RRR, S1, S2 present. Peripheral pulses intact ABDOMEN: Soft, nontender. Positive bowel sounds. EXTREMITIES: Without any cyanosis. NEUROLOGIC: Normal speech, normal tone PSYCHIATRIC: Normal affect, normal mood. SKIN: No ulcerations Vitals Vitals Vital Signs Date Time Temp Pulse Resp B/P (MAP) Pulse Ox O2 Delivery O2 Flow Rate FiO2 10/19/16 15:54 Room Air 10/19/16 15:32 98.2 107/64 (78) 96 98.2 10/19/16 14:20 86 27 Labs Labs Laboratory Tests Test 10/19/16 03:55 10/19/16 12:04 White Blood Count 6.9 x10^3/uL (4.0-11.0) Red Blood Count 5.02 x10^6/uL (4.30-5.70) Hemoglobin 15.0 g/dL (13.0-17.5) Hematocrit 44.7 % (39.0-53.0) Mean Corpuscular Volume 89 fL (79-100) Mean Corpuscular Hemoglobin 30 pg (25-35) Mean Corpuscular Hemoglobin Concent 34 g/dL (31-37) Red Cell Distribution Width 14.6 % (11.5-14.5) Platelet Count 114 x10^3/uL (140-400) Neutrophils (%) (Auto) 62 % (31-73) Lymphocytes (%) (Auto) 25 % (24-48) Monocytes (%) (Auto) 10 % (0-9) Eosinophils (%) (Auto) 1 % (0-3) Basophils (%) (Auto) 1 % (0-3) Neutrophils # (Auto) 4.3 x10^3uL (1.8-7.7) Lymphocytes # (Auto) 1.7 x10^3/uL (1.0-4.8) Monocytes # (Auto) 0.7 x10^3/uL (0.0-1.1) Eosinophils # (Auto) 0.1 x10^3/uL (0.0-0.7) Basophils # (Auto) 0.0 x10^3/uL (0.0-0.2) D-Dimer (Ana) 0.56 ug/mlFEU (0.00-0.50) Sodium Level 140 mmol/L (136-145) Potassium Level 4.1 mmol/L (3.5-5.1) Chloride Level 105 mmol/L (98-107) Carbon Dioxide Level 27 mmol/L (21-32) Anion Gap 8 (6-14) Blood Urea Nitrogen 13 mg/dL (8-26) Creatinine 1.0 mg/dL (0.7-1.3) Estimated GFR (Cockcroft-Gault) 73.2 BUN/Creatinine Ratio 13 (6-20) Glucose Level 117 mg/dL (70-99) Calcium Level 8.5 mg/dL (8.5-10.1) Magnesium Level 2.2 mg/dL (1.8-2.4) Total Bilirubin 0.6 mg/dL (0.2-1.0) Aspartate Amino Transf (AST/SGOT) 19 U/L (15-37) Alanine Aminotransferase (ALT/SGPT) 15 U/L (16-63) Alkaline Phosphatase 72 U/L (46-116) Troponin I Quantitative < 0.017 ng/mL (0.000-0.055) < 0.017 ng/mL (0.000-0.055) Total Protein 6.5 g/dL (6.4-8.2) Albumin 3.8 g/dL (3.4-5.0) Albumin/Globulin Ratio 1.4 (1.0-1.7) Triglycerides Level 136 mg/dL (0-150) Cholesterol Level 137 mg/dL (0-200) LDL Cholesterol, Calculated 68 mg/dL (0-100) VLDL Cholesterol, Calculated 27 mg/dL (0-40) Non-HDL Cholesterol Calculated 95 mg/dL (0-129) HDL Cholesterol 42 mg/dL (40-60) Cholesterol/HDL Ratio 3.3 Lipase 156 U/L (73-393) Thyroid Stimulating Hormone (TSH) 0.961 uIU/mL (0.358-3.74) Laboratory Tests Test 10/19/16 03:55 10/19/16 12:04 White Blood Count 6.9 x10^3/uL (4.0-11.0) Red Blood Count 5.02 x10^6/uL (4.30-5.70) Hemoglobin 15.0 g/dL (13.0-17.5) Hematocrit 44.7 % (39.0-53.0) Mean Corpuscular Volume 89 fL (79-100) Mean Corpuscular Hemoglobin 30 pg (25-35) Mean Corpuscular Hemoglobin Concent 34 g/dL (31-37) Red Cell Distribution Width 14.6 % (11.5-14.5) Platelet Count 114 x10^3/uL (140-400) Neutrophils (%) (Auto) 62 % (31-73) Lymphocytes (%) (Auto) 25 % (24-48) Monocytes (%) (Auto) 10 % (0-9) Eosinophils (%) (Auto) 1 % (0-3) Basophils (%) (Auto) 1 % (0-3) Neutrophils # (Auto) 4.3 x10^3uL (1.8-7.7) Lymphocytes # (Auto) 1.7 x10^3/uL (1.0-4.8) Monocytes # (Auto) 0.7 x10^3/uL (0.0-1.1) Eosinophils # (Auto) 0.1 x10^3/uL (0.0-0.7) Basophils # (Auto) 0.0 x10^3/uL (0.0-0.2) D-Dimer (Ana) 0.56 ug/mlFEU (0.00-0.50) Sodium Level 140 mmol/L (136-145) Potassium Level 4.1 mmol/L (3.5-5.1) Chloride Level 105 mmol/L (98-107) Carbon Dioxide Level 27 mmol/L (21-32) Anion Gap 8 (6-14) Blood Urea Nitrogen 13 mg/dL (8-26) Creatinine 1.0 mg/dL (0.7-1.3) Estimated GFR (Cockcroft-Gault) 73.2 BUN/Creatinine Ratio 13 (6-20) Glucose Level 117 mg/dL (70-99) Calcium Level 8.5 mg/dL (8.5-10.1) Magnesium Level 2.2 mg/dL (1.8-2.4) Total Bilirubin 0.6 mg/dL (0.2-1.0) Aspartate Amino Transf (AST/SGOT) 19 U/L (15-37) Alanine Aminotransferase (ALT/SGPT) 15 U/L (16-63) Alkaline Phosphatase 72 U/L (46-116) Troponin I Quantitative < 0.017 ng/mL (0.000-0.055) < 0.017 ng/mL (0.000-0.055) Total Protein 6.5 g/dL (6.4-8.2) Albumin 3.8 g/dL (3.4-5.0) Albumin/Globulin Ratio 1.4 (1.0-1.7) Triglycerides Level 136 mg/dL (0-150) Cholesterol Level 137 mg/dL (0-200) LDL Cholesterol, Calculated 68 mg/dL (0-100) VLDL Cholesterol, Calculated 27 mg/dL (0-40) Non-HDL Cholesterol Calculated 95 mg/dL (0-129) HDL Cholesterol 42 mg/dL (40-60) Cholesterol/HDL Ratio 3.3 Lipase 156 U/L (73-393) Thyroid Stimulating Hormone (TSH) 0.961 uIU/mL (0.358-3.74) VTE Prophylaxis Ordered VTE Prophylaxis Devices: Yes VTE Pharmacological Prophylaxi: Yes KATHERIN BOWER MD Oct 19, 2016 16:18
[2016-10-19] MEDS ORDERED: ALBUTEROL SULFATE 2.5 MG/3 ML NEBU. NEB PRN (17:15)
[2016-10-19] MEDS ORDERED: HYDROcodone/APAP 5/325MG 1 TAB TABLET PO PRN (17:15)
[2016-10-19] MEDS ORDERED: hydrALAZINE 20 MG/ML VIAL. IVP PRN (17:15)
[2016-10-19] MEDS: ASPIRIN ENTERIC COATED 81 MG TABLET.DR. PO SCH (17:56)
--- NOTE | 2016-10-19 20:43 | HP ---
ADMIT DATE: 10/19/2016 CHIEF COMPLAINT: Palpitation and dizziness. HISTORY OF THE PRESENT ILLNESS: A 71-year-old male patient with a prior history of coronary artery disease and OH 15 years ago, presented to the ER with complaints of dizziness symptoms on and off for nearly 2 weeks, but lately they are getting worse. He has some epigastric discomfort, and he thinks it is because of his hiatal hernia and also noted to have some palpitations. The patient has chronic back pain after he had injury due to ladder. He was admitted to the hospital for chest pain evaluation and palpitations. PAST MEDICAL HISTORY: Hypertension, OH, and GERD, hiatal hernia, surgery to low back L4-L5, osteoarthritis, and renal calculi. PAST SURGICAL HISTORY: Tonsillectomy. FAMILY HISTORY: No sudden cardiac deaths. SOCIAL HISTORY: Quit smoking long time ago. Occasionally, takes alcohol. No substance abuse. REVIEW OF SYSTEMS: Please see my electronic H and P. PHYSICAL EXAMINATION: Please see my electronic H and P. ALLERGIES: NKDA. LABORATORY FINDINGS: CBC within normal limits except for platelets of 114. Chemistry within normal limits including first set of troponins and cholesterol panel. D-dimer is elevated at 0.56. EKG: Personally reviewed. No acute ST-T wave changes noted. IMAGING STUDIES: CT of chest ordered. X-ray, no acute process seen. ASSESSMENT AND PLAN: 1. Palpitations. PVC 2. Chest pain and chest pressure. 3. Questionable hiatal hernia. 4. Ectopic beats. 5. Hyperlipidemia. 6. Hypertension. 7. Prior history of coronary artery disease. PLAN: 1. Consult Gastroenterology and Cardiology. 2. Ordered CT of the chest. 3. Monitor electrolytes and replace 4. CBC, BMP. 5. Echocardiogram.ordered 6. Home medications reviewed and reconciled and discussed with the RN. 7. Telemetry, d/w RN, 8. Pain control with hydrocodone, [place] and prn morphine 9. Supportive care. KATHERIN BOWER MD DR: RINA/kennedy JOB#: [id number] / [id number] AISHWARYA
[2016-10-19] MEDS ORDERED: SIMVASTATIN 40 MG TABLET. PO SCH (21:00)
[2016-10-19] MEDS ORDERED: METOPROLOL SUCC 24HR ER 25 MG TAB.ER.24H. PO SCH (21:00)
[2016-10-20 02:58] VITALS: BP 97/56
[2016-10-20 03:59] LABS: BASO % 0 % (0-3); EOS % 2 % (0-3); HEMATOCRIT 43.1 % (39.0-53.0); HEMOGLOBIN 14.3 g/dL (13.0-17.5); LYMPH # 1.9 x10^3/uL (1.0-4.8); LYMPH % 28 % (24-48); MEAN CORPUSCULAR HEMOGLOBIN 30 pg (25-35); MEAN CORPUSCULAR HGB CONC 33 g/dL (31-37); MEAN CORPUSCULAR VOLUME 89 fL (79-100); MONO % 9 % (0-9); NEUT % 60 % (31-73); PLATELET COUNT 102 x10^3/uL (140-400); RED BLOOD COUNT 4.84 x10^6/uL (4.30-5.70); RED CELL DISTRIBUTION WIDTH 14.5 % (11.5-14.5); WHITE BLOOD COUNT 6.6 x10^3/uL (4.0-11.0)
[2016-10-20 04:03] LABS: CALCIUM 8.4 mg/dL (8.5-10.1); CREATININE 1.1 mg/dL (0.7-1.3); GFR 65.6; POTASSIUM 3.9 mmol/L (3.5-5.1)
[2016-10-20 07:00] VITALS: BP 113/68
[2016-10-20] MEDS ORDERED: PANTOPRAZOLE 40 MG TABLET.DR. PO SCH (07:30)
[2016-10-20] MEDS: ASPIRIN ENTERIC COATED 81 MG TABLET.DR. PO SCH (08:08)
[2016-10-20] MEDS ORDERED: ASPIRIN ENTERIC COATED 81 MG TABLET.DR. PO SCH (09:00)
[2016-10-20 10:49] VITALS: BP 98/49
--- NOTE | 2016-10-20 11:48 | PDOC ---
CARDIO Progress Notes Date and Time Date of Service 10/20/2016 Time of Evaluation 1147 Subjective Subjective: No Chest Pain, No shortness of breath, No Palpitations, No Dizziness Vitals Vitals Vital Signs Date Time Temp Pulse Resp B/P (MAP) Pulse Ox O2 Delivery O2 Flow Rate FiO2 10/20/16 10:49 97.8 60 18 98/49 (65) 97 Room Air 97.8 Weight Weight [ ] Input and Output Intake and Output Intake and Output 10/20/16 07:00 Intake Total 2770 ml Output Total 325 ml Balance 2445 ml Intake Oral 1260 ml IV Total 755 ml Other 755 ml Output Urine Total 325 ml # Voids 5 Laboratory Labs Laboratory Tests Test 10/19/16 12:04 10/19/16 17:40 10/20/16 02:45 Troponin I Quantitative < 0.017 ng/mL (0.000-0.055) < 0.017 ng/mL (0.000-0.055) Thyroid Stimulating Hormone (TSH) 0.961 uIU/mL (0.358-3.74) White Blood Count 6.6 x10^3/uL (4.0-11.0) Red Blood Count 4.84 x10^6/uL (4.30-5.70) Hemoglobin 14.3 g/dL (13.0-17.5) Hematocrit 43.1 % (39.0-53.0) Mean Corpuscular Volume 89 fL (79-100) Mean Corpuscular Hemoglobin 30 pg (25-35) Mean Corpuscular Hemoglobin Concent 33 g/dL (31-37) Red Cell Distribution Width 14.5 % (11.5-14.5) Platelet Count 102 x10^3/uL (140-400) Neutrophils (%) (Auto) 60 % (31-73) Lymphocytes (%) (Auto) 28 % (24-48) Monocytes (%) (Auto) 9 % (0-9) Eosinophils (%) (Auto) 2 % (0-3) Basophils (%) (Auto) 0 % (0-3) Neutrophils # (Auto) 4.0 x10^3uL (1.8-7.7) Lymphocytes # (Auto) 1.9 x10^3/uL (1.0-4.8) Monocytes # (Auto) 0.6 x10^3/uL (0.0-1.1) Eosinophils # (Auto) 0.1 x10^3/uL (0.0-0.7) Basophils # (Auto) 0.0 x10^3/uL (0.0-0.2) Sodium Level 139 mmol/L (136-145) Potassium Level 3.9 mmol/L (3.5-5.1) Chloride Level 105 mmol/L (98-107) Carbon Dioxide Level 30 mmol/L (21-32) Anion Gap 4 (6-14) Blood Urea Nitrogen 16 mg/dL (8-26) Creatinine 1.1 mg/dL (0.7-1.3) Estimated GFR (Cockcroft-Gault) 65.6 Glucose Level 99 mg/dL (70-99) Calcium Level 8.4 mg/dL (8.5-10.1) Physical Exam HEENT: Neck Supple W Full Motion Chest: Symmetric LUNGS: Clear to Auscultation Heart: S1S2, RRR, other (tele: SR; occasional bigeminal PVCs) Abdomen: Soft N/T Extremities: No Edema Neurology: alert, oriented, follow commands Assessment Assessment 1. CP vs epigastric pain troponin levels r/o AMI echo without significant findings could not lie flat for MPI - cancelled declines cardiac cath continue medical management f/u with cards in 4 - 6 weeks 2. ventricular ectopy improved with resumption of BB declines event monitor 3. HTN controlled with meds 4. HLD controlled on statin therapy 5. ? 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
--- NOTE | 2016-10-20 12:13 | PDOC ---
Subjective: Subjective: Says "a little pill" he's taking really helps. 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 Reviewed cardiology note - could not lie flat for MPI, declines cath. Vital Signs: Vital Signs Date Time Temp Pulse Resp B/P (MAP) Pulse Ox O2 Delivery O2 Flow Rate FiO2 10/20/16 10:49 97.8 60 18 98/49 (65) 97 Room Air 97.8 Labs: Laboratory Tests Test 10/19/16 17:40 10/20/16 02:45 Troponin I Quantitative < 0.017 ng/mL White Blood Count 6.6 x10^3/uL Red Blood Count 4.84 x10^6/uL Hemoglobin 14.3 g/dL Hematocrit 43.1 % Mean Corpuscular Volume 89 fL Mean Corpuscular Hemoglobin 30 pg Mean Corpuscular Hemoglobin Concent 33 g/dL Red Cell Distribution Width 14.5 % Platelet Count 102 x10^3/uL Neutrophils (%) (Auto) 60 % Lymphocytes (%) (Auto) 28 % Monocytes (%) (Auto) 9 % Eosinophils (%) (Auto) 2 % Basophils (%) (Auto) 0 % Neutrophils # (Auto) 4.0 x10^3uL Lymphocytes # (Auto) 1.9 x10^3/uL Monocytes # (Auto) 0.6 x10^3/uL Eosinophils # (Auto) 0.1 x10^3/uL Basophils # (Auto) 0.0 x10^3/uL Sodium Level 139 mmol/L Potassium Level 3.9 mmol/L Chloride Level 105 mmol/L Carbon Dioxide Level 30 mmol/L Anion Gap 4 Blood Urea Nitrogen 16 mg/dL Creatinine 1.1 mg/dL Estimated GFR (Cockcroft-Gault) 65.6 Glucose Level 99 mg/dL Calcium Level 8.4 mg/dL PE: GEN: NAD, up to chair ABD: S/ND/NT NEURO/PSYCH: A & O 3 A/P: Chronic epigastric pain - better -attributes to hiatal hernia, no reflux/heartburn -EGD long ago, previous GB imaging, colonoscopy years ago -h/o constipation, treated w/ OTC products Chest pain, ventricular ectopy -- DC per primary. Continue PPI QD - discussed w/ pt and RN. Continue treatment for constipation. Consider outpt EGD and colonoscopy - was provided w/ our office info yesterday. JORDON RODARTE Oct 20, 2016 12:13
[2016-10-20] MEDS ORDERED: PANT40TA3 PO (12:22)
--- NOTE | 2016-10-20 12:24 | PDOC3 ---
Discharge Summary Visit Information Date of Admission: Oct 19, 2016 Date of Discharge: Oct 20, 2016 Admitting Diagnosis Comment: CP - GERD Final Diagnosis Problems Medical Problems: (1) Unstable angina Status: Acute Brief Hospital Course Allergies Allergies Coded Allergies Type Severity Reaction Last Updated Verified No Known Drug Allergies 03/03/14 No Vital Signs Vital Signs Date Time Temp Pulse Resp B/P (MAP) Pulse Ox O2 Delivery O2 Flow Rate FiO2 10/20/16 10:49 97.8 60 18 98/49 (65) 97 Room Air 97.8 Lab Results Laboratory Tests Test 10/19/16 03:55 10/19/16 06:10 10/19/16 12:04 10/19/16 17:40 White Blood Count 6.9 x10^3/uL (4.0-11.0) Red Blood Count 5.02 x10^6/uL (4.30-5.70) Hemoglobin 15.0 g/dL (13.0-17.5) Hematocrit 44.7 % (39.0-53.0) Mean Corpuscular Volume 89 fL (79-100) Mean Corpuscular Hemoglobin 30 pg (25-35) Mean Corpuscular Hemoglobin Concent 34 g/dL (31-37) Red Cell Distribution Width 14.6 % (11.5-14.5) Platelet Count 114 x10^3/uL (140-400) Neutrophils (%) (Auto) 62 % (31-73) Lymphocytes (%) (Auto) 25 % (24-48) Monocytes (%) (Auto) 10 % (0-9) Eosinophils (%) (Auto) 1 % (0-3) Basophils (%) (Auto) 1 % (0-3) Neutrophils # (Auto) 4.3 x10^3uL (1.8-7.7) Lymphocytes # (Auto) 1.7 x10^3/uL (1.0-4.8) Monocytes # (Auto) 0.7 x10^3/uL (0.0-1.1) Eosinophils # (Auto) 0.1 x10^3/uL (0.0-0.7) Basophils # (Auto) 0.0 x10^3/uL (0.0-0.2) D-Dimer (Ana) 0.56 ug/mlFEU (0.00-0.50) Sodium Level 140 mmol/L (136-145) Potassium Level 4.1 mmol/L (3.5-5.1) Chloride Level 105 mmol/L (98-107) Carbon Dioxide Level 27 mmol/L (21-32) Anion Gap 8 (6-14) Blood Urea Nitrogen 13 mg/dL (8-26) Creatinine 1.0 mg/dL (0.7-1.3) Estimated GFR (Cockcroft-Gault) 73.2 BUN/Creatinine Ratio 13 (6-20) Glucose Level 117 mg/dL (70-99) Calcium Level 8.5 mg/dL (8.5-10.1) Magnesium Level 2.2 mg/dL (1.8-2.4) Total Bilirubin 0.6 mg/dL (0.2-1.0) Aspartate Amino Transf (AST/SGOT) 19 U/L (15-37) Alanine Aminotransferase (ALT/SGPT) 15 U/L (16-63) Alkaline Phosphatase 72 U/L (46-116) Troponin I Quantitative < 0.017 ng/mL (0.000-0.055) < 0.017 ng/mL (0.000-0.055) < 0.017 ng/mL (0.000-0.055) Total Protein 6.5 g/dL (6.4-8.2) Albumin 3.8 g/dL (3.4-5.0) Albumin/Globulin Ratio 1.4 (1.0-1.7) Triglycerides Level 136 mg/dL (0-150) Cholesterol Level 137 mg/dL (0-200) LDL Cholesterol, Calculated 68 mg/dL (0-100) VLDL Cholesterol, Calculated 27 mg/dL (0-40) Non-HDL Cholesterol Calculated 95 mg/dL (0-129) HDL Cholesterol 42 mg/dL (40-60) Cholesterol/HDL Ratio 3.3 Lipase 156 U/L (73-393) Nasal Screen MRSA (PCR) Negative (Negative) Thyroid Stimulating Hormone (TSH) 0.961 uIU/mL (0.358-3.74) Test 10/20/16 02:45 White Blood Count 6.6 x10^3/uL (4.0-11.0) Red Blood Count 4.84 x10^6/uL (4.30-5.70) Hemoglobin 14.3 g/dL (13.0-17.5) Hematocrit 43.1 % (39.0-53.0) Mean Corpuscular Volume 89 fL (79-100) Mean Corpuscular Hemoglobin 30 pg (25-35) Mean Corpuscular Hemoglobin Concent 33 g/dL (31-37) Red Cell Distribution Width 14.5 % (11.5-14.5) Platelet Count 102 x10^3/uL (140-400) Neutrophils (%) (Auto) 60 % (31-73) Lymphocytes (%) (Auto) 28 % (24-48) Monocytes (%) (Auto) 9 % (0-9) Eosinophils (%) (Auto) 2 % (0-3) Basophils (%) (Auto) 0 % (0-3) Neutrophils # (Auto) 4.0 x10^3uL (1.8-7.7) Lymphocytes # (Auto) 1.9 x10^3/uL (1.0-4.8) Monocytes # (Auto) 0.6 x10^3/uL (0.0-1.1) Eosinophils # (Auto) 0.1 x10^3/uL (0.0-0.7) Basophils # (Auto) 0.0 x10^3/uL (0.0-0.2) Sodium Level 139 mmol/L (136-145) Potassium Level 3.9 mmol/L (3.5-5.1) Chloride Level 105 mmol/L (98-107) Carbon Dioxide Level 30 mmol/L (21-32) Anion Gap 4 (6-14) Blood Urea Nitrogen 16 mg/dL (8-26) Creatinine 1.1 mg/dL (0.7-1.3) Estimated GFR (Cockcroft-Gault) 65.6 Glucose Level 99 mg/dL (70-99) Calcium Level 8.4 mg/dL (8.5-10.1) Laboratory Tests Test 10/19/16 17:40 10/20/16 02:45 Troponin I Quantitative < 0.017 ng/mL (0.000-0.055) White Blood Count 6.6 x10^3/uL (4.0-11.0) Red Blood Count 4.84 x10^6/uL (4.30-5.70) Hemoglobin 14.3 g/dL (13.0-17.5) Hematocrit 43.1 % (39.0-53.0) Mean Corpuscular Volume 89 fL (79-100) Mean Corpuscular Hemoglobin 30 pg (25-35) Mean Corpuscular Hemoglobin Concent 33 g/dL (31-37) Red Cell Distribution Width 14.5 % (11.5-14.5) Platelet Count 102 x10^3/uL (140-400) Neutrophils (%) (Auto) 60 % (31-73) Lymphocytes (%) (Auto) 28 % (24-48) Monocytes (%) (Auto) 9 % (0-9) Eosinophils (%) (Auto) 2 % (0-3) Basophils (%) (Auto) 0 % (0-3) Neutrophils # (Auto) 4.0 x10^3uL (1.8-7.7) Lymphocytes # (Auto) 1.9 x10^3/uL (1.0-4.8) Monocytes # (Auto) 0.6 x10^3/uL (0.0-1.1) Eosinophils # (Auto) 0.1 x10^3/uL (0.0-0.7) Basophils # (Auto) 0.0 x10^3/uL (0.0-0.2) Sodium Level 139 mmol/L (136-145) Potassium Level 3.9 mmol/L (3.5-5.1) Chloride Level 105 mmol/L (98-107) Carbon Dioxide Level 30 mmol/L (21-32) Anion Gap 4 (6-14) Blood Urea Nitrogen 16 mg/dL (8-26) Creatinine 1.1 mg/dL (0.7-1.3) Estimated GFR (Cockcroft-Gault) 65.6 Glucose Level 99 mg/dL (70-99) Calcium Level 8.4 mg/dL (8.5-10.1) Brief Hospital Course Mr. Hobbs is a 71 old [sex] who presented with [ ] A 71-year-old male patient with a prior history of coronary artery disease and WI 15 years ago, presented to the ER with complaints of dizziness symptoms on and off for nearly 2 weeks, but lately they are getting worse. He has some epigastric discomfort, and he thinks it is because of his hiatal hernia and also noted to have some palpitations. The patient has chronic back pain after he had injury due to his ____. He was admitted to the hospital for chest pain evaluation and palpitations. GIven PPI, got 100% relief. CLaims OTC prevacid and zantac doesnt help. Cleared from cards to go home I have written Rx PPI 1 month supply with refills PT seen and examined Counselled > 50% time 31 mins Discharge Information Condition at Discharge: Improved, Stable Disposition/Orders: D/C to Home Scheduled Aspirin (Aspir 81), 81 MG PO DAILY, (Reported) Metoprolol Succinate (Toprol Xl), 25 MG PO HS, (Reported) Simvastatin (Zocor), 40 MG PO HS, (Reported) [Citracal], 2 TBS PO DAILY, (Reported) Discontinued Medications Ubidecarenone (Co Q-10), 200 MG PO DAILY, (Reported) NEW THOMSON MD Oct 20, 2016 12:24
== END 2016-10-20 14:33 | disposition home or self-care (01) | DRG 392 ==
LOC: ER 03:42 → 1 WEST ICU 05:00 → 2 NORTH 14:50
PROVIDERS: ADMIT Internal Medicine; ATTEND Internal Medicine
DX: K21.9 Gastro-esophageal reflux disease without esophagitis (principal); I25.110 Atherosclerotic heart disease of native coronary artery with unstable angina pectoris; E78.5 Hyperlipidemia, unspecified; G89.29 Other chronic pain; I10 Essential (primary) hypertension; K30 Functional dyspepsia; I49.3 Ventricular premature depolarization; K59.00 Constipation, unspecified; K44.9 Diaphragmatic hernia without obstruction or gangrene; M19.90 Unspecified osteoarthritis, unspecified site; Z79.82 Long term (current) use of aspirin; I25.2 Old myocardial infarction; Z87.442 Personal history of urinary calculi; Z95.5 Presence of coronary angioplasty implant and graft; Z79.899 Other long term (current) drug therapy; Z90.49 Acquired absence of other specified parts of digestive tract; Z90.89 Acquired absence of other organs; Z87.891 Personal history of nicotine dependence
CPT/HCPCS: 36415; 71010; 71275; 80048; 80053; 80061; 83690; 83735; 84443; 84484; 85027; 85379; 87641; 93005; 93306; 94250; 96374; A9500; C9113; J2405; J7030; Q9967; 99285-25

== ENCOUNTER 2016-10-23 09:14 | Inpatient (IN) | payer MEDICARE ==
[~2016-10-23] VITALS: Ht 170.2 cm; Wt 88.0 kg
[~2016-10-23 09:14] MED LIST changes: +Citracal PO; +METO25TA9 PO; +PANT40TA3 PO
[2016-10-23 09:59] LABS: BASO % 0 % (0-3); EOS % 1 % (0-3); HEMATOCRIT 43.9 % (39.0-53.0); HEMOGLOBIN 14.4 g/dL (13.0-17.5); LYMPH # 0.9 x10^3/uL (1.0-4.8); LYMPH % 15 % (24-48); MEAN CORPUSCULAR HEMOGLOBIN 30 pg (25-35); MEAN CORPUSCULAR HGB CONC 33 g/dL (31-37); MEAN CORPUSCULAR VOLUME 91 fL (79-100); MONO % 10 % (0-9); NEUT % 75 % (31-73); PLATELET COUNT 105 x10^3/uL (140-400); RED BLOOD COUNT 4.85 x10^6/uL (4.30-5.70); RED CELL DISTRIBUTION WIDTH 14.6 % (11.5-14.5); WHITE BLOOD COUNT 6.4 x10^3/uL (4.0-11.0)
--- NOTE | 2016-10-23 10:10 | RAD ---
EXAM: Chest one view. HISTORY: Chest pain. COMPARISON: 10/19/2016. FINDINGS: A frontal view of the chest is obtained. There is mild atelectasis in the bases. Mild blunting of the left costophrenic angle may represent scarring rather than a small pleural effusion. There is no pneumothorax. The heart is not enlarged. Mild aortic atherosclerotic calcifications are noted. IMPRESSION: 1. Basilar atelectasis. No confluent infiltrates.
[2016-10-23 10:14] LABS: CALCIUM 8.4 mg/dL (8.5-10.1); GFR 73.2; POTASSIUM 3.9 mmol/L (3.5-5.1)
[2016-10-23 10:21] LABS: ALBUMIN 3.5 g/dL (3.4-5.0); ALBUMIN/GLOBULIN RATIO 1.2 (1.0-1.7); TOTAL BILIRUBIN 0.6 mg/dL (0.2-1.0); TOTAL PROTEIN 6.5 g/dL (6.4-8.2)
[2016-10-23] MEDS ORDERED: MORPHINE SULFATE 4 MG/ML DISP.SYRIN. IV PRN (11:00)
[2016-10-23] MEDS ORDERED: NITROGLYCERIN SUBLINGUAL 0.4 MG BOTTLE OF 25. SL PRN ×2 (11:00→16:45)
[2016-10-23] MEDS ORDERED: ACETAMINOPHEN 325 MG TABLET. PO PRN (11:00)
[2016-10-23] MEDS ORDERED: ONDANSETRON PF 4 MG/2 ML VIAL. IV PRN (11:00)
[2016-10-23] MEDS ORDERED: NITR0.4T22 (11:44)
[2016-10-23] MEDS ORDERED: NITR1PAT5 (11:44)
[2016-10-23] MEDS ORDERED: CYCL10TA2 (11:44)
[2016-10-23] MEDS ORDERED: HYDR-2762 (11:44)
[2016-10-23 11:49] VITALS: BP 119/72
--- NOTE | 2016-10-23 12:15 | PHYS DOC ---
Past Medical History Past Medical History: Hypertension, Kidney Stone, SC, Other Additional Past Medical Histor: SC(12-15 YRS AGO) Past Surgical History: Cholecystectomy, Other Additional Past Surgical Histo: cardiac stents Alcohol Use: None Drug Use: None Adult General Chief Complaint Chief Complaint: SHORTNESS OF BREATH HPI HPI Patient is a 71 year old male who presents with chest pain. The patient reports onset of symptoms 2 hours prior to arrival while at rest. Reports substernal chest discomfort which is nonradiating, shortness of breath at rest, lightheadedness. Denies nausea, diaphoresis. Denies fevers or chills, cough, lower extremity pain or swelling, syncope, extremity numbness or weakness. Reports recent and remote history of similar pain. 15 years ago had chest pain associated with SC and cardiac stent placement. Had similar pain earlier this week, admitted to the hospital, at that time felt to be atypical, normal echocardiogram, unable to tolerate stress MPI. Discharged home without further cardiac evaluation. Pain more severe today. Also has history of hypertension. PCP is Dr. Gan. Review of Systems Review of Systems Constitutional: Denies fever or chills Eyes: Denies change in visual acuity HENT: Denies nasal congestion or sore throat Respiratory: Denies cough, reports shortness of breath Cardiovascular: Reports chest pain, denies edema GI: Denies abdominal pain, nausea, vomiting, bloody stools or diarrhea : Denies dysuria or hematuria Musculoskeletal: Denies back pain or joint pain Integument: Denies rash or skin lesions Neurologic: Denies headache, focal weakness or sensory changes Allergies Allergies Allergies Coded Allergies Type Severity Reaction Last Updated Verified No Known Drug Allergies 03/03/14 No Physical Exam Physical Exam Constitutional: Well developed, well nourished, no acute distress, non-toxic appearance. HENT: Normocephalic, atraumatic, bilateral external ears normal, oropharynx moist, nose normal. Eyes: PERRLA, EOMI, conjunctiva normal, no discharge. Neck: supple, no stridor. Cardiovascular: RRR, no murmurs, no edema. Lungs & Thorax: LCTAB, no wheezing, no respiratory distress. No reproducible tenderness with palpation of her anterior chest wall. Abdomen: soft, nontender, nondistended. Skin: Warm, dry, no erythema, no rash. Back: No tenderness. Extremities: No tenderness, no edema. No calf tenderness or swelling Neurologic: Alert and oriented X 3, no focal deficits noted. Psychologic: Affect normal, judgement normal, mood normal. Current Patient Data Vital Signs Vital Signs Date Time Temp Pulse Resp B/P (MAP) Pulse Ox O2 Delivery O2 Flow Rate FiO2 10/23/16 09:17 98.3 92 20 136/67 (90) 95 Room Air 98.3 Lab Values Laboratory Tests Test 10/23/16 09:40 White Blood Count 6.4 x10^3/uL (4.0-11.0) Red Blood Count 4.85 x10^6/uL (4.30-5.70) Hemoglobin 14.4 g/dL (13.0-17.5) Hematocrit 43.9 % (39.0-53.0) Mean Corpuscular Volume 91 fL (79-100) Mean Corpuscular Hemoglobin 30 pg (25-35) Mean Corpuscular Hemoglobin Concent 33 g/dL (31-37) Red Cell Distribution Width 14.6 % (11.5-14.5) H Platelet Count 105 x10^3/uL (140-400) L Neutrophils (%) (Auto) 75 % (31-73) H Lymphocytes (%) (Auto) 15 % (24-48) L Monocytes (%) (Auto) 10 % (0-9) H Eosinophils (%) (Auto) 1 % (0-3) Basophils (%) (Auto) 0 % (0-3) Neutrophils # (Auto) 4.8 x10^3uL (1.8-7.7) Lymphocytes # (Auto) 0.9 x10^3/uL (1.0-4.8) L Monocytes # (Auto) 0.6 x10^3/uL (0.0-1.1) Eosinophils # (Auto) 0.0 x10^3/uL (0.0-0.7) Basophils # (Auto) 0.0 x10^3/uL (0.0-0.2) Prothrombin Time 13.0 SEC (11.7-14.0) Prothrombin Time INR 1.0 (0.8-1.1) PTT 29 SEC (24-38) Sodium Level 139 mmol/L (136-145) Potassium Level 3.9 mmol/L (3.5-5.1) Chloride Level 104 mmol/L (98-107) Carbon Dioxide Level 24 mmol/L (21-32) Anion Gap 11 (6-14) Blood Urea Nitrogen 17 mg/dL (8-26) Creatinine 1.0 mg/dL (0.7-1.3) Estimated GFR (Cockcroft-Gault) 73.2 BUN/Creatinine Ratio 17 (6-20) Glucose Level 145 mg/dL (70-99) H Calcium Level 8.4 mg/dL (8.5-10.1) L Total Bilirubin 0.6 mg/dL (0.2-1.0) Aspartate Amino Transferase (AST) 16 U/L (15-37) Alanine Aminotransferase (ALT) 12 U/L (16-63) L Alkaline Phosphatase 68 U/L (46-116) Troponin I Quantitative < 0.017 ng/mL (0.000-0.055) RK-Gmn-X-Type Natriuretic Peptide 1748 pg/mL (0-124) H Total Protein 6.5 g/dL (6.4-8.2) Albumin 3.5 g/dL (3.4-5.0) Albumin/Globulin Ratio 1.2 (1.0-1.7) Lipase 129 U/L (73-393) Laboratory Tests 10/23/16 09:40 Laboratory Tests 10/23/16 09:40 EKG EKG Interpreted by me: Normal sinus rhythm rate 94, bigeminy, no STEMI [] Radiology/Procedures Radiology/Procedures PROCEDURE: CHEST AP ONLY EXAM: Chest one view. HISTORY: Chest pain. COMPARISON: 10/19/2016. FINDINGS: A frontal view of the chest is obtained. There is mild atelectasis in the bases. Mild blunting of the left costophrenic angle may represent scarring rather than a small pleural effusion. There is no pneumothorax. The heart is not enlarged. Mild aortic atherosclerotic calcifications are noted. IMPRESSION: 1. Basilar atelectasis. No confluent infiltrates. DICTATED and SIGNED BY: TATO MONREAL MD DATE: 10/23/16 1007[] Course & Med Decision Making Course & Med Decision Making Pertinent Labs and Imaging studies reviewed. (See chart for details) The patient presents with chest pain and shortness of breath. Symptoms improving upon arrival. He had arty applied nitroglycerin patch and taken aspirin. No further aspirin administered here. Obtained labs, EKG, chest x-ray. No acute abnormality identified. Symptoms concerning for angina without complete cardiac evaluation on previous visit. Recommended admission to the hospital for further evaluation and treatment. The patient agreed with plan of care. Discussed with Dr. noble who agrees to accept for admission to inpatient status. Cardiology consult placed to Dr. Persaud. The patient is admitted in stable condition. [] Dragon Disclaimer Dragon Disclaimer This electronic medical record was generated, in whole or in part, using a voice recognition dictation system. Departure Departure Impression: Primary Impression: Chest pain Additional Impressions: Elevated brain natriuretic peptide (BNP) level Unstable angina Disposition: ADMITTED INPATIENT Admitting Physician: Isabel Noble Condition: STABLE Referrals: JENNI GAN MD (PCP) Problem Qualifiers MALI JOSE MD Oct 23, 2016 12:15
--- NOTE | 2016-10-23 12:16 | EKG ---
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
--- NOTE | 2016-10-23 12:29 | ACF ---
Admission Forms Criteria CARDIOLOGY GRG Clinical Indications for Admission to Inpatient Care ( Place 'X' for any and all applicable criteria): Hospital admission is needed for appropriate care of the patient because of ANY ONE of the following (1): [ ] I. Hemodynamic instability as indicated by ALL of the following (1)(2)(3) (4)(5) [ ]a) Vital signs or other findings not as expected for chronic patient condition or baseline [ ]b) Instability indicated by ANY ONE of the following: [ ]i) Hypotension [ ]ii) Symptomatic Tachycardia unresponsive to treatment ( e.g., analgesia, fluids, sedation as indicated) [ ]iii) Inadequate perfusion indicated by ANY ONE of the following: [ ] 1) Lactic acidosis (> 2 mmol/L) [ ] 2) New abnormal capillary refill (> 3 seconds) [ ] 3) Reduced urine output [ ] 4) New altered mental status [ ]iv) Orthostatic vital sign changes unresponsive to treatment (e.g., fluids) [ ]v) IV inotropic or vasopressor medication required to maintain adequate blood pressure or perfusion [ ] II. Severe heart failure as indicated by ANY ONE of the following(17)(18) [ ]a) Respiratory distress [ ]b) Hypotension [ ]c) Anasarca (refractory to outpatient therapy) [ ]d) Cardiac arrhythmias of immediate concern [ ]e) Myocardial ischemia [ ] III. Cardiac arrhythmias or findings of immediate concern indicated by ANY ONE of the following (19)(20): [ ] a) Heart rhythms that are inherently dangerous or unstable indicated by ANY ONE of the following (21)(22)(23): [ ] i) Resuscitated ventricular fibrillation or cardiac arrest [ ] ii) Ventricular escape rhythm [ ] iii) Sustained ventricular tachycardia (30 seconds or more of ventricular rhythm at greater than 100 beats per minute) [ ] iv) Nonsustained ventricular tachycardia and ANY ONE of the following: [ ] 1) Suspected cardiac ischemia as cause or consequence of ventricular tachycardia [ ] 2) In setting of acute myocarditis [ ] b) Unstable cardiac conduction defects indicated by ANY ONE of the following(23)(24)(25) [ ] i) Type II second-degree atrioventricular block [ ]ii) Third-degree atrioventricular block [ ]iii) New-onset left bundle branch block with suspected myocardial ischemia [ ]c) Any heart rhythm and ANY ONE of the following (21)(22)(26)(27) (28) [ ] i) Continuous long-term ECG monitoring needed (e.g., initiation of drug requiring monitoring for more than 24 hours) [ ] ii) Patient has automatic implanted cardioverter defibrillator that is repeatedly firing, malfunctioning, or in need of immediate adjustment of settings beyond the scope of ambulatory or observation care [ ]d) Heart rhythms of concern due to ANY ONE of the following: [ ] i) Hypotension [ ] ii) Respiratory distress [ ] iii) Association with other significant symptoms (e.g., bradycardia with syncope or ongoing dizziness, supraventricular tachycardia with chest pain (14)(15)(17) [ ] IV. Monitoring for cardiac contusion beyond the scope of observation care needed [A](30)(31)(32) [ ] V. Surgical or device complication (e.g., valve replacement complication , pacemaker dysfunction) (35)(41)(44)(45)(46) [ ] . Inpatient palliative care needed. [B](49) Also use Inpatient Palliative Care Criteria [ ] VII. Nonbacterial thrombotic (marantic) endocarditis (36)(43)(47)(48) [X] VIII. Cardiology condition, symptom, or finding for which emergency and observation care has failed or are not considered appropriate. [ ] IX. Acute valvular disease requiring inpatient as indicated by ANY ONE of the following (41) [ ]a) Acute valvular regurgitation (42) [ ]b) Noninfectious valvulitis (43) [ ]c) Obstructive valve thrombosis [ ]d) Paravalvular leak [ ]e) Other significant valvular disorder remaining after emergency or observation level of care (as appropriate) [ ]X. Pericardial disease requiring inpatient treatment as indicated by ANY ONE of the following (33)(34)(35)(36)(37) [ ]a) Suspected tamponade (38)(39)(40) [ ]b) Hemopericardium [ ]c) Other significant pericardial disorder remaining after emergency or observation level of care (as appropriate) [ ] XI. Cardiac ischemia beyond scope of emergency and observation care. [ ] XII. Hypertension requiring inpatient treatment as indicated by ANY ONE of the following (6)(7)(8) [ ]a) SBP greater than 220 mm Hg or DBP greater than 120 mmHg despite treatment [ ]b) SBP greater than 140 mm Hg or DBP greater than 100 mm Hg with evidence of acute end organ damage as indicated by ANY ONE of the following [ ] i) Encephalopathy [ ] ii) Acute renal failure as indicated by new onset of ANY ONE of the following (9)(10)(11)(12)(13) [ ]1) 3-fold rise in serum creatinine from baseline [ ]2) Serum creatinine greater than 4 mg/dL ( 354 micromoles/L) with acute rise greater than 0.5 mg/dL (44.2 micromoles/L) [ ]3) Reduction of more than 75% in estimated glomerular filtration rate from baseline [ ]4) Estimated glomerular filtration rate less than 35 mL/min/1.73m2 (0.59 mL/sec/1.73m2) in child up to 18 years of age [ ]5) Cessation of urine output indicated by ALL of the following [ ]A. Adequate volume status [ ]B. Inadequate urine output as indicated by ANY ONE of the following [ ]a. Urine output less than 0.3 mL/kg/hr for 24 hours [ ]b. Anuria (urine output less than 0.1 mL/kg/hr) for 12 hours [ ] iii) Aortic dissection [ ] iv) Myocardial Ischemia [ ] v) Left ventricular heart failure [ ]vi) Retinal Hemorrhage [ ]vii) Other significant finding [ ]c) Hypertension in child requiring inpatient treatment as indicated by ALL of the following(14)(15)(16) [ ] i) Outpatient treatment not effective, not available, or not appropriate [ ]ii) SBP or DBP greater than 95th percentile for age [ ]iii) Evidence of acute end organ damage as indicated by ANY ONE of the following [ ]1) Altered mental status [ ]2) Acute renal failure as indicated by new onset of ANY ONE of the following(9)(10)(11)(12)(13) [ ]A. 3-fold rise in serum creatinine from baseline [ ]B. Serum creatinine greater than 4 mg/dL (354 micromoles/L) with acute rise greater than 0.5 mg/dL (44.2 micromoles/L) [ ]C. Reduction of more than 75% in estimated glomerular filtration rate from baseline [ ]D. Estimated glomerular filtration rate less than 35 mL/min/1.73m2 (0.59 mL/sec/1.73m2) in child up to 18 years of age [ ]E. Cessation of urine output indicated by ALL of the following [ ]a. Adequate volume status [ ]b. Inadequate urine output as indicated by ANY ONE of the following [ ]i) Urine output less than 0.3 mL/kg/hr for 24 hours [ ]ii) Anuria ( urine output less than 0.1 mL/kg/hr) for 12 hours [ ]3) Severe headache [ ]4) Visual disturbance [ ]5) Retinal hemorrhage [ ]6) Other significant finding [ ]XIII. Complications of transplanted heart indicated by ANY ONE of the following(61): [ ]a) Acute graft rejection requiring inpatient management (eg, intravenous immunosuppression)(62)(63) [ ]b) Acute graft heart failure indicated by ANY ONE of the following(64): [ ]i) Hemodynamic instability [ ]ii) Cardiac arrhythmias of immediate concern [ ]iii) Pulmonary edema that is very severe (eg, mechanical ventilation needed, imminent or likely, need for 100% oxygen to keep oxygen saturation above 90%) [ ]iv) Pulmonary edema that is persistent as indicated by ALL of the following: [ ]1) New need for oxygen therapy to keep oxygen saturation above 90% (or increased FiO2 need from baseline) [ ]2) Has not improved sufficiently with emergency department or observation care IV diuretics or other heart failure treatments[E] [ ]v) Altered mental status that is severe or persistent [ ]vi) Increased creatinine (new on laboratory test) with reduction of more than 50% in estimated glomerular filtration rate from baseline [ ]vii) Progressively (ongoing) rising creatinine (known from past laboratory test) with reduction of more than 25% in estimated glomerular filtration rate from baseline [ ]viii) Acute renal failure [ ]ix) Acute peripheral ischemia (eg, examination shows pulseless, cool, mottled, or cyanotic extremity) [ ]x) Pulmonary artery catheter monitoring needed [ ]xi) Other sign or symptom of heart failure requiring inpatient treatment (ie, too severe or not responsive to outpatient and observation care treatment) [ ]c) Infection requiring inpatient management (eg, Hemodynamic instability, need for intravenous antimicrobial treatment)(66)(67)(68)(69)(70) [ ]d) Cardiac allograft vasculopathy requiring inpatient management ( eg evidence of cardiac ischemia)(71) [ ]e) Other complication of transplanted heart (eg, stroke, severe pulmonary hypertension, severe valvular dysfunction) requiring inpatient management(72) The original [facility] content created by [facility] has been revised. The portions of the content which have been revised are identified through the use of italic text or in bold, and [facility] has neither reviewed nor approved the modified material. All other unmodified content is copyright [facility]. Please see references footnoted in the original [facility] edition 2016 Admission Criteria Met?: Yes INOCENCIO SNELL Oct 23, 2016 12:29
[2016-10-23 15:30] VITALS: BP 126/67
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
[2016-10-23] MEDS ORDERED: HYDROcodone/APAP 7.5/325MG 1 TAB TABLET PO PRN (16:45)
[2016-10-23] MEDS ORDERED: NITROGLYCERIN 0.2MG/HR PATCH. TD ONE (17:30)
[2016-10-23] MEDS ORDERED: MAGNESIUM HYDROXIDE 2,400 MG/30 ML ORAL.SUSP. PO PRN (18:00)
--- NOTE | 2016-10-23 18:04 | EKG ---
[facility] [address] [place] [address] Test Date: 2016-10-23 Test Time: 17:52:38 Pat Name: DONALD DELONG Department: Room: 209 1 Gender: M Occupational Health Specialist: : 1945 Requested By: MALI JOSE Order Number: [id number] Reading MD: Ole Wood Measurements Intervals [place] Rate: 87 P: 29 [place]: 176 QRS: -27 QRSD: 90 T: 54 QT: 436 QTc: 525 Interpretive Statements SINUS RHYTHM ATRIAL PREMATURE COMPLEX(ES), BIGEMINY LEFT ATRIAL ABNORMALITY LEFTWARD AXIS QRS(T) CONTOUR ABNORMALITY CONSIDER ANTEROSEPTAL MYOCARDIAL DAMAGE PROLONGED QT ABNORMAL ECG RI6.01 Electronically Signed On 10-25-2016 10:57:00 CDT by Ole Wood
[2016-10-23] MEDS: DOCUSATE SODIUM 100 MG CAPSULE. PO PRN (18:20)
[2016-10-23] MEDS ORDERED: POLYETHYLENE GLYCOL 3350 17 GM PACKET. PO ONE (18:30)
[2016-10-23] MEDS ORDERED: POLYETHYLENE GLYCOL 3350 17 GM PACKET. PO PRN (19:00)
[2016-10-23 19:15] VITALS: BP 96/62
[2016-10-23] MEDS: METOPROLOL SUCC 24HR ER 25 MG TAB.ER.24H. PO SCH (21:06)
[2016-10-23] MEDS: SIMVASTATIN 40 MG TABLET. PO SCH (21:06)
[2016-10-23 22:35] VITALS: BP 110/69
[2016-10-24] VITALS (7 sets, daily range): BP systolic 80–108; BP diastolic 33–57
--- NOTE | 2016-10-24 00:19 | EKG ---
[facility] [address] [place] [address] Test Date: 2016-10-24 Test Time: 00:09:13 Pat Name: DONALD DELONG Department: Room: 209 1 Gender: M Hands Parter: CARROLL : 1945 Requested By: MALI JOSE Order Number: [id number] Reading MD: Ole Wood Measurements Intervals [place] Rate: 72 P: 33 [place]: 172 QRS: -33 QRSD: 88 T: 63 QT: 388 QTc: 426 Interpretive Statements SINUS RHYTHM ABNORMAL LEFT AXIS DEVIATION LEFT ANTERIOR FASCICULAR BLOCK ABNORMAL ECG RI6.01 Compared to ECG 10/19/2016 04:24:51 Left-axis deviation now present Left anterior fascicular block now present Electronically Signed On 10-25-2016 11:01:58 CDT by Ole Wood
[2016-10-24 05:13] LABS: BASO % 0 % (0-3); EOS % 1 % (0-3); HEMATOCRIT 41.1 % (39.0-53.0); HEMOGLOBIN 13.7 g/dL (13.0-17.5); LYMPH # 1.3 x10^3/uL (1.0-4.8); LYMPH % 21 % (24-48); MEAN CORPUSCULAR HEMOGLOBIN 30 pg (25-35); MEAN CORPUSCULAR HGB CONC 33 g/dL (31-37); MEAN CORPUSCULAR VOLUME 90 fL (79-100); MONO % 9 % (0-9); NEUT % 69 % (31-73); PLATELET COUNT 108 x10^3/uL (140-400); RED BLOOD COUNT 4.58 x10^6/uL (4.30-5.70); RED CELL DISTRIBUTION WIDTH 14.4 % (11.5-14.5); WHITE BLOOD COUNT 6.4 x10^3/uL (4.0-11.0)
[2016-10-24 05:29] LABS: ALBUMIN 3.5 g/dL (3.4-5.0); ALBUMIN/GLOBULIN RATIO 1.3 (1.0-1.7); CALCIUM 8.4 mg/dL (8.5-10.1); CREATININE 1.1 mg/dL (0.7-1.3); GFR 65.6; POTASSIUM 4.1 mmol/L (3.5-5.1); TOTAL BILIRUBIN 0.7 mg/dL (0.2-1.0); TOTAL PROTEIN 6.3 g/dL (6.4-8.2)
[2016-10-24 05:34] LABS: CHOLESTEROL/HDL RATIO 2.9
[2016-10-24] MEDS: PANTOPRAZOLE 40 MG TABLET.DR. PO SCH (08:57)
[2016-10-24] MEDS: CYCLOBENZAPRINE 10 MG TABLET. PO PRN (08:57)
[2016-10-24] MEDS: ASPIRIN ENTERIC COATED 81 MG TABLET.DR. PO SCH (08:57)
[2016-10-24] MEDS: DOCUSATE SODIUM 100 MG CAPSULE. PO PRN (08:57)
--- NOTE | 2016-10-24 11:37 | PDOC2 ---
CONSULT Date of Consult Date of Consult DATE: 10/24/16 TIME: 11:37 Reason for Consult Reason for Consult: Chest pain Referring Physician Referring Physician: Dr. Noble Identification/Chief Complaint Chief Complaint Chest pain Source Source: Chart review, Patient History of Present Illness Reason for Visit: 71-year-old male presented with intermittent episodes of retrosternal chest pain that he described as pressure-like sensation, 7/10 severity associated with diaphoresis and nausea. He stated that the pain is similar to the chest pain that he had 15 years ago when he underwent stent placement. He was recently evaluated for similar chest pain at [facility] when he could not complete stress test due to inability to lie down flat. He denied any orthopnea/PND, palpitations or syncope. Past Medical History Cardiovascular: HTN, DC, Hyperlipidemia Pulmonary: No pertinent hx CENTRAL NERVOUS SYSTEM: Other GI: GERD Heme/Onc: No pertinent hx Hepatobiliary: No pertinent hx Psych: No pertinent hx Musculoskeletal: low back pain, Osteoarthritis Infectious disease: No pertinent hx Renal/: Other Endocrine: No pertinent hx Past Surgical History Past Surgical History: Tonsillectomy, Other Family History Family History: Coronary Artery Disease Social History No ALCOHOL: none Drugs: None Current Problem List Problem List Problems Medical Problems: (1) Elevated brain natriuretic peptide (BNP) level Status: Acute (2) Unstable angina Status: Acute Current Medications Current Medications Current Medications Ondansetron HCl (Zofran) 4 mg PRN Q8HRS PRN IV NAUSEA/VOMITING Last administered on 10/23/16 17:55; Start 10/23/16 at 11:00; Stop 10/24/16 at 10:59 ; Status DC Morphine Sulfate 4 mg PRN Q2HR PRN IV PAIN; Start 10/23/16 at 11:00; Stop 10/24 at 10:59; Status DC Acetaminophen (Tylenol) 650 mg PRN Q4HRS PRN PO FEVER; Start 10/23/16 at 11:00 ; Stop 10/24/16 at 10:59; Status DC Nitroglycerin (Nitrostat) 0.4 mg PRN Q5MIN PRN SL CHEST PAIN; Start 10/23/16 at 11:00; Stop 10/23/16 at 16:47; Status DC Aspirin (Ecotrin) 81 mg DAILY PO Last administered on 10/24/16 08:57; Start at 09:00 Cyclobenzaprine HCl (Flexeril) 10 mg PRN Q8HRS PRN PO pain Last administered on 10/24/16 08:57; Start 10/23/16 at 16:45 Acetaminophen/ Hydrocodone Bitart (Lortab 7.5/325) 1 tab PRN Q4HRS PRN PO pain ; Start 10/23/16 at 16:45 Metoprolol Succinate (Toprol Xl) 25 mg HS PO Last administered on 10/23/16 21: 06; Start 10/23/16 at 21:00 Nitroglycerin (Nitro-Dur) 1 patch 1X ONCE TD Last administered on 10/23/16 17 :38; Start 10/23/16 at 17:30; Stop 10/23/16 at 17:31; Status DC Nitroglycerin (Nitrostat) 0.4 mg PRN Q1HR PRN SL pain; Start 10/23/16 at 16:45 Pantoprazole Sodium (Protonix) 40 mg DAILYAC PO Last administered on 10/24/16 08:57; Start 10/24/16 at 07:30 Simvastatin (Zocor) 40 mg HS PO Last administered on 10/23/16 21:06; Start at 21:00 Polyethylene Glycol (miraLAX PACKET) 17 gm 1X ONCE PO Last administered on 18:20; Start 10/23/16 at 18:30; Stop 10/23/16 at 18:31; Status DC Polyethylene Glycol (miraLAX PACKET) 17 gm PRN DAILY PRN PO CONSTIPATION; Start 10/23/16 at 19:00 Docusate Sodium (Colace) 100 mg PRN DAILY PRN PO CONSTIPATION Last administered on 10/24/16 08:57; Start 10/23/16 at 18:00 Magnesium Hydroxide (Milk Of Magnesia) 2,400 mg PRN DAILY PRN PO CONSTIPATION Last administered on 10/24/16 08:57; Start 10/23/16 at 18:00 Active Scripts Active Protonix (Pantoprazole Sodium) 40 Mg Tablet.dr 1 Tab PO DAILY Reported NITRO-DUR 0.2mg/hr (Nitroglycerin) 1 Each Patch.td24 Hydrocodone-Apap 7.5-325 (Hydrocodone Bit/Acetaminophen) 1 Each Tablet Cyclobenzaprine Hcl 10 Mg Tablet NITROGLYCERIN SubLingual (Nitroglycerin) 0.4 Mg Tab.subl [Citracal] 2 Tbs PO DAILY Zocor (Simvastatin) 40 Mg Tablet 40 Mg PO HS Toprol Xl (Metoprolol Succinate) 25 Mg Tab.er.24h 25 Mg PO HS Aspir 81 (Aspirin) 81 Mg Tablet.dr 81 Mg PO DAILY Allergies Allergies: Coded Allergies: No Known Drug Allergies (Unverified , 03/03/14) ROS PSYCHOLOGICAL ROS: No: Hallucinations Eyes: No Loss of vision HEENT: No: Epistaxis Respiratory: No: Hemoptysis, Shortness of breath Cardiovascular: yes Chest Pain Gastrointestinal: Yes Nausea Genitourinary: No Hematuria Neurological: No Seizures Skin: No Rash Physical Exam General: Alert, Oriented X3 HEENT: Atraumatic, PERRLA Lungs: Clear to auscultation Heart: Regular rate Abdomen: Soft, No tenderness Extremities: No edema Psych/Mental Status: Mood NL Vitals VITALS Vital Signs Date Time Temp Pulse Resp B/P (MAP) Pulse Ox O2 Delivery O2 Flow Rate FiO2 10/24/16 10:40 97.6 82 20 99/50 (66) 96 Room Air 97.6 Labs Labs Laboratory Tests Test 10/23/16 09:40 10/23/16 15:50 10/24/16 00:05 10/24/16 03:38 White Blood Count 6.4 x10^3/uL (4.0-11.0) 6.4 x10^3/uL (4.0-11.0) Red Blood Count 4.85 x10^6/uL (4.30-5.70) 4.58 x10^6/uL (4.30-5.70) Hemoglobin 14.4 g/dL (13.0-17.5) 13.7 g/dL (13.0-17.5) Hematocrit 43.9 % (39.0-53.0) 41.1 % (39.0-53.0) Mean Corpuscular Volume 91 fL (79-100) 90 fL (79-100) Mean Corpuscular Hemoglobin 30 pg (25-35) 30 pg (25-35) Mean Corpuscular Hemoglobin Concent 33 g/dL (31-37) 33 g/dL (31-37) Red Cell Distribution Width 14.6 % (11.5-14.5) 14.4 % (11.5-14.5) Platelet Count 105 x10^3/uL (140-400) 108 x10^3/uL (140-400) Neutrophils (%) (Auto) 75 % (31-73) 69 % (31-73) Lymphocytes (%) (Auto) 15 % (24-48) 21 % (24-48) Monocytes (%) (Auto) 10 % (0-9) 9 % (0-9) Eosinophils (%) (Auto) 1 % (0-3) 1 % (0-3) Basophils (%) (Auto) 0 % (0-3) 0 % (0-3) Neutrophils # (Auto) 4.8 x10^3uL (1.8-7.7) 4.4 x10^3uL (1.8-7.7) Lymphocytes # (Auto) 0.9 x10^3/uL (1.0-4.8) 1.3 x10^3/uL (1.0-4.8) Monocytes # (Auto) 0.6 x10^3/uL (0.0-1.1) 0.6 x10^3/uL (0.0-1.1) Eosinophils # (Auto) 0.0 x10^3/uL (0.0-0.7) 0.1 x10^3/uL (0.0-0.7) Basophils # (Auto) 0.0 x10^3/uL (0.0-0.2) 0.0 x10^3/uL (0.0-0.2) Prothrombin Time 13.0 SEC (11.7-14.0) Prothromb Time International Ratio 1.0 (0.8-1.1) Activated Partial Thromboplast Time 29 SEC (24-38) Sodium Level 139 mmol/L (136-145) 140 mmol/L (136-145) Potassium Level 3.9 mmol/L (3.5-5.1) 4.1 mmol/L (3.5-5.1) Chloride Level 104 mmol/L (98-107) 105 mmol/L (98-107) Carbon Dioxide Level 24 mmol/L (21-32) 27 mmol/L (21-32) Anion Gap 11 (6-14) 8 (6-14) Blood Urea Nitrogen 17 mg/dL (8-26) 17 mg/dL (8-26) Creatinine 1.0 mg/dL (0.7-1.3) 1.1 mg/dL (0.7-1.3) Estimated GFR (Cockcroft-Gault) 73.2 65.6 BUN/Creatinine Ratio 17 (6-20) 15 (6-20) Glucose Level 145 mg/dL (70-99) 85 mg/dL (70-99) Calcium Level 8.4 mg/dL (8.5-10.1) 8.4 mg/dL (8.5-10.1) Total Bilirubin 0.6 mg/dL (0.2-1.0) 0.7 mg/dL (0.2-1.0) Aspartate Amino Transf (AST/SGOT) 16 U/L (15-37) 16 U/L (15-37) Alanine Aminotransferase (ALT/SGPT) 12 U/L (16-63) 15 U/L (16-63) Alkaline Phosphatase 68 U/L (46-116) 60 U/L (46-116) Troponin I Quantitative < 0.017 ng/mL (0.000-0.055) < 0.017 ng/mL (0.000-0.055) < 0.017 ng/mL (0.000-0.055) ME-Bti-N-Type Natriuretic Peptide 1748 pg/mL (0-124) Total Protein 6.5 g/dL (6.4-8.2) 6.3 g/dL (6.4-8.2) Albumin 3.5 g/dL (3.4-5.0) 3.5 g/dL (3.4-5.0) Albumin/Globulin Ratio 1.2 (1.0-1.7) 1.3 (1.0-1.7) Lipase 129 U/L (73-393) Triglycerides Level 91 mg/dL (0-150) Cholesterol Level 116 mg/dL (0-200) LDL Cholesterol, Calculated 58 mg/dL (0-100) VLDL Cholesterol, Calculated 18 mg/dL (0-40) Non-HDL Cholesterol Calculated 76 mg/dL (0-129) HDL Cholesterol 40 mg/dL (40-60) Cholesterol/HDL Ratio 2.9 Laboratory Tests Test 10/23/16 15:50 10/24/16 00:05 10/24/16 03:38 Troponin I Quantitative < 0.017 ng/mL (0.000-0.055) < 0.017 ng/mL (0.000-0.055) White Blood Count 6.4 x10^3/uL (4.0-11.0) Red Blood Count 4.58 x10^6/uL (4.30-5.70) Hemoglobin 13.7 g/dL (13.0-17.5) Hematocrit 41.1 % (39.0-53.0) Mean Corpuscular Volume 90 fL (79-100) Mean Corpuscular Hemoglobin 30 pg (25-35) Mean Corpuscular Hemoglobin Concent 33 g/dL (31-37) Red Cell Distribution Width 14.4 % (11.5-14.5) Platelet Count 108 x10^3/uL (140-400) Neutrophils (%) (Auto) 69 % (31-73) Lymphocytes (%) (Auto) 21 % (24-48) Monocytes (%) (Auto) 9 % (0-9) Eosinophils (%) (Auto) 1 % (0-3) Basophils (%) (Auto) 0 % (0-3) Neutrophils # (Auto) 4.4 x10^3uL (1.8-7.7) Lymphocytes # (Auto) 1.3 x10^3/uL (1.0-4.8) Monocytes # (Auto) 0.6 x10^3/uL (0.0-1.1) Eosinophils # (Auto) 0.1 x10^3/uL (0.0-0.7) Basophils # (Auto) 0.0 x10^3/uL (0.0-0.2) Sodium Level 140 mmol/L (136-145) Potassium Level 4.1 mmol/L (3.5-5.1) Chloride Level 105 mmol/L (98-107) Carbon Dioxide Level 27 mmol/L (21-32) Anion Gap 8 (6-14) Blood Urea Nitrogen 17 mg/dL (8-26) Creatinine 1.1 mg/dL (0.7-1.3) Estimated GFR (Cockcroft-Gault) 65.6 BUN/Creatinine Ratio 15 (6-20) Glucose Level 85 mg/dL (70-99) Calcium Level 8.4 mg/dL (8.5-10.1) Total Bilirubin 0.7 mg/dL (0.2-1.0) Aspartate Amino Transf (AST/SGOT) 16 U/L (15-37) Alanine Aminotransferase (ALT/SGPT) 15 U/L (16-63) Alkaline Phosphatase 60 U/L (46-116) Total Protein 6.3 g/dL (6.4-8.2) Albumin 3.5 g/dL (3.4-5.0) Albumin/Globulin Ratio 1.3 (1.0-1.7) Triglycerides Level 91 mg/dL (0-150) Cholesterol Level 116 mg/dL (0-200) LDL Cholesterol, Calculated 58 mg/dL (0-100) VLDL Cholesterol, Calculated 18 mg/dL (0-40) Non-HDL Cholesterol Calculated 76 mg/dL (0-129) HDL Cholesterol 40 mg/dL (40-60) Cholesterol/HDL Ratio 2.9 Assessment/Plan Assessment/Plan 1. Chest pain with mixed typical and atypical features in a patient with known history of coronary artery disease. Myocardial infarction ruled out. He could not complete stress test during last admission due to inability to lie down flat from back pain. Since he stated that this pain is similar to the pain he had prior to previous angioplasty/stent placement, we will proceed with cardiac catheterization for definitive evaluation. Risks and benefits were explained. 2. Hypertension: Well-controlled 3. Hyperlipidemia: Continue statin therapy Thank you for your consultation ELSIE TORRES MD Oct 24, 2016 11:37
[2016-10-24] MEDS ORDERED: BISACODYL 10 MG SUPP.RECT. PR ONE (13:30)
--- NOTE | 2016-10-24 13:41 | PDOC ---
PROGRESS NOTES Chief Complaint Chief Complaint Chest pressure A/P 1. Constipation: see orderers. 2. Chest pain and chest pressure.troponin negative, CTA no PE, d/w cardiology, cath on Tuesday 3. CAD hx with [place] 15 yrs ago. 4. Ectopic beats.: on telemetry. 5. Hyperlipidemia. 6. Hypertension. 7. Chronic back pain. stable, PRN norco. History of Present Illness History of Present Illness no chest pain no fever no chills. Vitals Vitals Vital Signs Date Time Temp Pulse Resp B/P (MAP) Pulse Ox O2 Delivery O2 Flow Rate FiO2 10/24/16 10:40 97.6 82 20 99/50 (66) 96 Room Air 97.6 Physical Exam General: Alert, Oriented X3, Cooperative, No acute distress Heart: Normal S1, Normal S2 Lungs: Clear Abdomen: Normal bowel sounds, Soft Extremities: No clubbing, No edema, Normal pulses Skin: No significant lesion Labs LABS Laboratory Tests Test 10/23/16 15:50 10/24/16 00:05 10/24/16 03:38 Troponin I Quantitative < 0.017 ng/mL (0.000-0.055) < 0.017 ng/mL (0.000-0.055) White Blood Count 6.4 x10^3/uL (4.0-11.0) Red Blood Count 4.58 x10^6/uL (4.30-5.70) Hemoglobin 13.7 g/dL (13.0-17.5) Hematocrit 41.1 % (39.0-53.0) Mean Corpuscular Volume 90 fL (79-100) Mean Corpuscular Hemoglobin 30 pg (25-35) Mean Corpuscular Hemoglobin Concent 33 g/dL (31-37) Red Cell Distribution Width 14.4 % (11.5-14.5) Platelet Count 108 x10^3/uL (140-400) Neutrophils (%) (Auto) 69 % (31-73) Lymphocytes (%) (Auto) 21 % (24-48) Monocytes (%) (Auto) 9 % (0-9) Eosinophils (%) (Auto) 1 % (0-3) Basophils (%) (Auto) 0 % (0-3) Neutrophils # (Auto) 4.4 x10^3uL (1.8-7.7) Lymphocytes # (Auto) 1.3 x10^3/uL (1.0-4.8) Monocytes # (Auto) 0.6 x10^3/uL (0.0-1.1) Eosinophils # (Auto) 0.1 x10^3/uL (0.0-0.7) Basophils # (Auto) 0.0 x10^3/uL (0.0-0.2) Sodium Level 140 mmol/L (136-145) Potassium Level 4.1 mmol/L (3.5-5.1) Chloride Level 105 mmol/L (98-107) Carbon Dioxide Level 27 mmol/L (21-32) Anion Gap 8 (6-14) Blood Urea Nitrogen 17 mg/dL (8-26) Creatinine 1.1 mg/dL (0.7-1.3) Estimated GFR (Cockcroft-Gault) 65.6 BUN/Creatinine Ratio 15 (6-20) Glucose Level 85 mg/dL (70-99) Calcium Level 8.4 mg/dL (8.5-10.1) Total Bilirubin 0.7 mg/dL (0.2-1.0) Aspartate Amino Transf (AST/SGOT) 16 U/L (15-37) Alanine Aminotransferase (ALT/SGPT) 15 U/L (16-63) Alkaline Phosphatase 60 U/L (46-116) Total Protein 6.3 g/dL (6.4-8.2) Albumin 3.5 g/dL (3.4-5.0) Albumin/Globulin Ratio 1.3 (1.0-1.7) Triglycerides Level 91 mg/dL (0-150) Cholesterol Level 116 mg/dL (0-200) LDL Cholesterol, Calculated 58 mg/dL (0-100) VLDL Cholesterol, Calculated 18 mg/dL (0-40) Non-HDL Cholesterol Calculated 76 mg/dL (0-129) HDL Cholesterol 40 mg/dL (40-60) Cholesterol/HDL Ratio 2.9 Assessment and Plan Assessmemt and Plan Problems Medical Problems: (1) Elevated brain natriuretic peptide (BNP) level Status: Acute (2) Unstable angina Status: Acute Problems: Comment Review of Relevant I have reviewed the following items jensen (where applicable) has been applied. Labs Laboratory Tests Test 10/23/16 09:40 10/23/16 15:50 10/24/16 00:05 10/24/16 03:38 White Blood Count 6.4 x10^3/uL (4.0-11.0) 6.4 x10^3/uL (4.0-11.0) Red Blood Count 4.85 x10^6/uL (4.30-5.70) 4.58 x10^6/uL (4.30-5.70) Hemoglobin 14.4 g/dL (13.0-17.5) 13.7 g/dL (13.0-17.5) Hematocrit 43.9 % (39.0-53.0) 41.1 % (39.0-53.0) Mean Corpuscular Volume 91 fL (79-100) 90 fL (79-100) Mean Corpuscular Hemoglobin 30 pg (25-35) 30 pg (25-35) Mean Corpuscular Hemoglobin Concent 33 g/dL (31-37) 33 g/dL (31-37) Red Cell Distribution Width 14.6 % (11.5-14.5) 14.4 % (11.5-14.5) Platelet Count 105 x10^3/uL (140-400) 108 x10^3/uL (140-400) Neutrophils (%) (Auto) 75 % (31-73) 69 % (31-73) Lymphocytes (%) (Auto) 15 % (24-48) 21 % (24-48) Monocytes (%) (Auto) 10 % (0-9) 9 % (0-9) Eosinophils (%) (Auto) 1 % (0-3) 1 % (0-3) Basophils (%) (Auto) 0 % (0-3) 0 % (0-3) Neutrophils # (Auto) 4.8 x10^3uL (1.8-7.7) 4.4 x10^3uL (1.8-7.7) Lymphocytes # (Auto) 0.9 x10^3/uL (1.0-4.8) 1.3 x10^3/uL (1.0-4.8) Monocytes # (Auto) 0.6 x10^3/uL (0.0-1.1) 0.6 x10^3/uL (0.0-1.1) Eosinophils # (Auto) 0.0 x10^3/uL (0.0-0.7) 0.1 x10^3/uL (0.0-0.7) Basophils # (Auto) 0.0 x10^3/uL (0.0-0.2) 0.0 x10^3/uL (0.0-0.2) Prothrombin Time 13.0 SEC (11.7-14.0) Prothromb Time International Ratio 1.0 (0.8-1.1) Activated Partial Thromboplast Time 29 SEC (24-38) Sodium Level 139 mmol/L (136-145) 140 mmol/L (136-145) Potassium Level 3.9 mmol/L (3.5-5.1) 4.1 mmol/L (3.5-5.1) Chloride Level 104 mmol/L (98-107) 105 mmol/L (98-107) Carbon Dioxide Level 24 mmol/L (21-32) 27 mmol/L (21-32) Anion Gap 11 (6-14) 8 (6-14) Blood Urea Nitrogen 17 mg/dL (8-26) 17 mg/dL (8-26) Creatinine 1.0 mg/dL (0.7-1.3) 1.1 mg/dL (0.7-1.3) Estimated GFR (Cockcroft-Gault) 73.2 65.6 BUN/Creatinine Ratio 17 (6-20) 15 (6-20) Glucose Level 145 mg/dL (70-99) 85 mg/dL (70-99) Calcium Level 8.4 mg/dL (8.5-10.1) 8.4 mg/dL (8.5-10.1) Total Bilirubin 0.6 mg/dL (0.2-1.0) 0.7 mg/dL (0.2-1.0) Aspartate Amino Transf (AST/SGOT) 16 U/L (15-37) 16 U/L (15-37) Alanine Aminotransferase (ALT/SGPT) 12 U/L (16-63) 15 U/L (16-63) Alkaline Phosphatase 68 U/L (46-116) 60 U/L (46-116) Troponin I Quantitative < 0.017 ng/mL (0.000-0.055) < 0.017 ng/mL (0.000-0.055) < 0.017 ng/mL (0.000-0.055) VR-Iga-F-Type Natriuretic Peptide 1748 pg/mL (0-124) Total Protein 6.5 g/dL (6.4-8.2) 6.3 g/dL (6.4-8.2) Albumin 3.5 g/dL (3.4-5.0) 3.5 g/dL (3.4-5.0) Albumin/Globulin Ratio 1.2 (1.0-1.7) 1.3 (1.0-1.7) Lipase 129 U/L (73-393) Triglycerides Level 91 mg/dL (0-150) Cholesterol Level 116 mg/dL (0-200) LDL Cholesterol, Calculated 58 mg/dL (0-100) VLDL Cholesterol, Calculated 18 mg/dL (0-40) Non-HDL Cholesterol Calculated 76 mg/dL (0-129) HDL Cholesterol 40 mg/dL (40-60) Cholesterol/HDL Ratio 2.9 Laboratory Tests Test 10/23/16 15:50 10/24/16 00:05 10/24/16 03:38 Troponin I Quantitative < 0.017 ng/mL (0.000-0.055) < 0.017 ng/mL (0.000-0.055) White Blood Count 6.4 x10^3/uL (4.0-11.0) Red Blood Count 4.58 x10^6/uL (4.30-5.70) Hemoglobin 13.7 g/dL (13.0-17.5) Hematocrit 41.1 % (39.0-53.0) Mean Corpuscular Volume 90 fL (79-100) Mean Corpuscular Hemoglobin 30 pg (25-35) Mean Corpuscular Hemoglobin Concent 33 g/dL (31-37) Red Cell Distribution Width 14.4 % (11.5-14.5) Platelet Count 108 x10^3/uL (140-400) Neutrophils (%) (Auto) 69 % (31-73) Lymphocytes (%) (Auto) 21 % (24-48) Monocytes (%) (Auto) 9 % (0-9) Eosinophils (%) (Auto) 1 % (0-3) Basophils (%) (Auto) 0 % (0-3) Neutrophils # (Auto) 4.4 x10^3uL (1.8-7.7) Lymphocytes # (Auto) 1.3 x10^3/uL (1.0-4.8) Monocytes # (Auto) 0.6 x10^3/uL (0.0-1.1) Eosinophils # (Auto) 0.1 x10^3/uL (0.0-0.7) Basophils # (Auto) 0.0 x10^3/uL (0.0-0.2) Sodium Level 140 mmol/L (136-145) Potassium Level 4.1 mmol/L (3.5-5.1) Chloride Level 105 mmol/L (98-107) Carbon Dioxide Level 27 mmol/L (21-32) Anion Gap 8 (6-14) Blood Urea Nitrogen 17 mg/dL (8-26) Creatinine 1.1 mg/dL (0.7-1.3) Estimated GFR (Cockcroft-Gault) 65.6 BUN/Creatinine Ratio 15 (6-20) Glucose Level 85 mg/dL (70-99) Calcium Level 8.4 mg/dL (8.5-10.1) Total Bilirubin 0.7 mg/dL (0.2-1.0) Aspartate Amino Transf (AST/SGOT) 16 U/L (15-37) Alanine Aminotransferase (ALT/SGPT) 15 U/L (16-63) Alkaline Phosphatase 60 U/L (46-116) Total Protein 6.3 g/dL (6.4-8.2) Albumin 3.5 g/dL (3.4-5.0) Albumin/Globulin Ratio 1.3 (1.0-1.7) Triglycerides Level 91 mg/dL (0-150) Cholesterol Level 116 mg/dL (0-200) LDL Cholesterol, Calculated 58 mg/dL (0-100) VLDL Cholesterol, Calculated 18 mg/dL (0-40) Non-HDL Cholesterol Calculated 76 mg/dL (0-129) HDL Cholesterol 40 mg/dL (40-60) Cholesterol/HDL Ratio 2.9 Medications Current Medications Ondansetron HCl (Zofran) 4 mg PRN Q8HRS PRN IV NAUSEA/VOMITING Last administered on 10/23/16t 17:55; Start 10/23/16 at 11:00; Stop 10/24/16 at 10:59 ; Status DC Morphine Sulfate 4 mg PRN Q2HR PRN IV PAIN; Start 10/23/16 at 11:00; Stop 10/24 at 10:59; Status DC Acetaminophen (Tylenol) 650 mg PRN Q4HRS PRN PO FEVER; Start 10/23/16 at 11:00 ; Stop 10/24/16 at 10:59; Status DC Nitroglycerin (Nitrostat) 0.4 mg PRN Q5MIN PRN SL CHEST PAIN; Start 10/23/16 at 11:00; Stop 10/23/16 at 16:47; Status DC Aspirin (Ecotrin) 81 mg DAILY PO Last administered on 10/24/16 08:57; Start at 09:00 Cyclobenzaprine HCl (Flexeril) 10 mg PRN Q8HRS PRN PO pain Last administered on 10/24/16 08:57; Start 10/23/16 at 16:45 Acetaminophen/ Hydrocodone Bitart (Lortab 7.5/325) 1 tab PRN Q4HRS PRN PO pain ; Start 10/23/16 at 16:45 Metoprolol Succinate (Toprol Xl) 25 mg HS PO Last administered on 10/23/16 21: 06; Start 10/23/16 at 21:00 Nitroglycerin (Nitro-Dur) 1 patch 1X ONCE TD Last administered on 10/23/16 17 :38; Start 10/23/16 at 17:30; Stop 10/23/16 at 17:31; Status DC Nitroglycerin (Nitrostat) 0.4 mg PRN Q1HR PRN SL pain; Start 10/23/16 at 16:45 Pantoprazole Sodium (Protonix) 40 mg DAILYAC PO Last administered on 10/24/16 08:57; Start 10/24/16 at 07:30 Simvastatin (Zocor) 40 mg HS PO Last administered on 10/23/16 21:06; Start at 21:00 Polyethylene Glycol (miraLAX PACKET) 17 gm 1X ONCE PO Last administered on 18:20; Start 10/23/16 at 18:30; Stop 10/23/16 at 18:31; Status DC Polyethylene Glycol (miraLAX PACKET) 17 gm PRN DAILY PRN PO CONSTIPATION; Start 10/23/16 at 19:00 Docusate Sodium (Colace) 100 mg PRN DAILY PRN PO CONSTIPATION Last administered on 10/24/16 08:57; Start 10/23/16 at 18:00 Magnesium Hydroxide (Milk Of Magnesia) 2,400 mg PRN DAILY PRN PO CONSTIPATION Last administered on 10/24/16 08:57; Start 10/23/16 at 18:00 Bisacodyl (Dulcolax Supp) 20 mg 1X ONCE [place] Last administered on 10/24/16 13: 03; Start 10/24/16 at 13:30; Stop 10/24/16 at 13:31; Status DC Active Scripts Active Protonix (Pantoprazole Sodium) 40 Mg Tablet.dr 1 Tab PO DAILY Reported NITRO-DUR 0.2mg/hr (Nitroglycerin) 1 Each Patch.td24 Hydrocodone-Apap 7.5-325 (Hydrocodone Bit/Acetaminophen) 1 Each Tablet Cyclobenzaprine Hcl 10 Mg Tablet NITROGLYCERIN SubLingual (Nitroglycerin) 0.4 Mg Tab.subl [Citracal] 2 Tbs PO DAILY Zocor (Simvastatin) 40 Mg Tablet 40 Mg PO HS Toprol Xl (Metoprolol Succinate) 25 Mg Tab.er.24h 25 Mg PO HS Aspir 81 (Aspirin) 81 Mg Tablet. 81 Mg PO DAILY Vitals/I & O Vital Sign - Last 24 Hours 10/23/16 10/23/16 10/23/16 10/23/16 15:30 19:15 20:00 21:06 Temp 97.6 97.8 97.6 97.8 Pulse 82 44 74 Resp 20 18 B/P (MAP) 126/67 (86) 96/62 (73) 96/62 Pulse Ox 96 95 O2 Delivery Room Air Room Air Room Air 10/23/16 10/24/16 10/24/16 10/24/16 22:35 03:53 07:35 07:35 Temp 98.0 97.9 97.6 98.0 97.9 97.6 Pulse 55 69 82 Resp 18 18 20 B/P (MAP) 110/69 (83) 98/57 (71) 100/48 (65) Pulse Ox 96 91 96 O2 Delivery Room Air Room Air Room Air Room Air 10/24/16 10:40 Temp 97.6 97.6 Pulse 82 Resp 20 B/P (MAP) 99/50 (66) Pulse Ox 96 O2 Delivery Room Air Intake and Output 10/23/16 10/23/16 10/24/16 15:00 23:00 07:00 Intake Total 220 ml 360 ml Balance 220 ml 360 ml KATHERIN BOWER MD Oct 24, 2016 13:41
[2016-10-24] MEDS ORDERED: ONDANSETRON PF 4 MG/2 ML VIAL. IV PRN (18:15)
[2016-10-24] MEDS: SIMVASTATIN 40 MG TABLET. PO SCH (21:03)
[2016-10-24] MEDS: METOPROLOL SUCC 24HR ER 25 MG TAB.ER.24H. PO SCH (21:03)
[2016-10-25] VITALS (12 sets, daily range): BP systolic 94–126; BP diastolic 55–81
[2016-10-25] MEDS: ASPIRIN ENTERIC COATED 81 MG TABLET.DR. PO SCH (08:18)
[2016-10-25] MEDS: PANTOPRAZOLE 40 MG TABLET.DR. PO SCH (08:18)
--- NOTE | 2016-10-25 11:27 | PDOC ---
PROGRESS NOTES Chief Complaint Chief Complaint Chest pressure A/P 1. Constipation: see orderers. 2. Chest pain and chest pressure.troponin negative, CTA no PE, d/w cardiology, cath today 3. CAD hx with [place] 15 yrs ago. 4. Ectopic beats.: on telemetry. 5. Hyperlipidemia. 6. Hypertension. 7. Chronic back pain. stable, PRN norco. History of Present Illness History of Present Illness no chest pain no fever no chills. Vitals Vitals Vital Signs Date Time Temp Pulse Resp B/P (MAP) Pulse Ox O2 Delivery O2 Flow Rate FiO2 10/25/16 10:41 98.1 68 20 111/74 (86) 93 Room Air 98.1 Physical Exam General: Alert, Oriented X3 Heart: Regular rate Lungs: Clear Abdomen: Soft, No tenderness Extremities: No edema Skin: No significant lesion Assessment and Plan Assessmemt and Plan Problems Medical Problems: (1) Elevated brain natriuretic peptide (BNP) level Status: Acute (2) Unstable angina Status: Acute Problems: Comment Review of Relevant I have reviewed the following items jensen (where applicable) has been applied. Labs Laboratory Tests Test 10/23/16 15:50 10/24/16 00:05 10/24/16 03:38 Troponin I Quantitative < 0.017 ng/mL (0.000-0.055) < 0.017 ng/mL (0.000-0.055) White Blood Count 6.4 x10^3/uL (4.0-11.0) Red Blood Count 4.58 x10^6/uL (4.30-5.70) Hemoglobin 13.7 g/dL (13.0-17.5) Hematocrit 41.1 % (39.0-53.0) Mean Corpuscular Volume 90 fL (79-100) Mean Corpuscular Hemoglobin 30 pg (25-35) Mean Corpuscular Hemoglobin Concent 33 g/dL (31-37) Red Cell Distribution Width 14.4 % (11.5-14.5) Platelet Count 108 x10^3/uL (140-400) Neutrophils (%) (Auto) 69 % (31-73) Lymphocytes (%) (Auto) 21 % (24-48) Monocytes (%) (Auto) 9 % (0-9) Eosinophils (%) (Auto) 1 % (0-3) Basophils (%) (Auto) 0 % (0-3) Neutrophils # (Auto) 4.4 x10^3uL (1.8-7.7) Lymphocytes # (Auto) 1.3 x10^3/uL (1.0-4.8) Monocytes # (Auto) 0.6 x10^3/uL (0.0-1.1) Eosinophils # (Auto) 0.1 x10^3/uL (0.0-0.7) Basophils # (Auto) 0.0 x10^3/uL (0.0-0.2) Sodium Level 140 mmol/L (136-145) Potassium Level 4.1 mmol/L (3.5-5.1) Chloride Level 105 mmol/L (98-107) Carbon Dioxide Level 27 mmol/L (21-32) Anion Gap 8 (6-14) Blood Urea Nitrogen 17 mg/dL (8-26) Creatinine 1.1 mg/dL (0.7-1.3) Estimated GFR (Cockcroft-Gault) 65.6 BUN/Creatinine Ratio 15 (6-20) Glucose Level 85 mg/dL (70-99) Calcium Level 8.4 mg/dL (8.5-10.1) Total Bilirubin 0.7 mg/dL (0.2-1.0) Aspartate Amino Transf (AST/SGOT) 16 U/L (15-37) Alanine Aminotransferase (ALT/SGPT) 15 U/L (16-63) Alkaline Phosphatase 60 U/L (46-116) Total Protein 6.3 g/dL (6.4-8.2) Albumin 3.5 g/dL (3.4-5.0) Albumin/Globulin Ratio 1.3 (1.0-1.7) Triglycerides Level 91 mg/dL (0-150) Cholesterol Level 116 mg/dL (0-200) LDL Cholesterol, Calculated 58 mg/dL (0-100) VLDL Cholesterol, Calculated 18 mg/dL (0-40) Non-HDL Cholesterol Calculated 76 mg/dL (0-129) HDL Cholesterol 40 mg/dL (40-60) Cholesterol/HDL Ratio 2.9 Medications Current Medications Ondansetron HCl (Zofran) 4 mg PRN Q8HRS PRN IV NAUSEA/VOMITING Last administered on 10/23/16t 17:55; Start 10/23/16 at 11:00; Stop 10/24/16 at 10:59 ; Status DC Morphine Sulfate 4 mg PRN Q2HR PRN IV PAIN; Start 10/23/16 at 11:00; Stop 10/24 at 10:59; Status DC Acetaminophen (Tylenol) 650 mg PRN Q4HRS PRN PO FEVER; Start 10/23/16 at 11:00 ; Stop 10/24/16 at 10:59; Status DC Nitroglycerin (Nitrostat) 0.4 mg PRN Q5MIN PRN SL CHEST PAIN; Start 10/23/16 at 11:00; Stop 10/23/16 at 16:47; Status DC Aspirin (Ecotrin) 81 mg DAILY PO Last administered on 10/25/16 08:18; Start at 09:00 Cyclobenzaprine HCl (Flexeril) 10 mg PRN Q8HRS PRN PO pain Last administered on 10/24/16 08:57; Start 10/23/16 at 16:45 Acetaminophen/ Hydrocodone Bitart (Lortab 7.5/325) 1 tab PRN Q4HRS PRN PO pain ; Start 10/23/16 at 16:45 Metoprolol Succinate (Toprol Xl) 25 mg HS PO Last administered on 10/24/16 21: 03; Start 10/23/16 at 21:00 Nitroglycerin (Nitro-Dur) 1 patch 1X ONCE [place] Last administered on 10/23/16 17 :38; Start 10/23/16 at 17:30; Stop 10/23/16 at 17:31; Status DC Nitroglycerin (Nitrostat) 0.4 mg PRN Q1HR PRN SL pain; Start 10/23/16 at 16:45 Pantoprazole Sodium (Protonix) 40 mg DAILYAC PO Last administered on 10/25/16 08:18; Start 10/24/16 at 07:30 Simvastatin (Zocor) 40 mg HS PO Last administered on 10/24/16 21:03; Start at 21:00 Polyethylene Glycol (miraLAX PACKET) 17 gm 1X ONCE PO Last administered on 18:20; Start 10/23/16 at 18:30; Stop 10/23/16 at 18:31; Status DC Polyethylene Glycol (miraLAX PACKET) 17 gm PRN DAILY PRN PO CONSTIPATION; Start 10/23/16 at 19:00 Docusate Sodium (Colace) 100 mg PRN DAILY PRN PO CONSTIPATION Last administered on 10/24/16 08:57; Start 10/23/16 at 18:00 Magnesium Hydroxide (Milk Of Magnesia) 2,400 mg PRN DAILY PRN PO CONSTIPATION Last administered on 10/24/16 08:57; Start 10/23/16 at 18:00 Bisacodyl (Dulcolax Supp) 20 mg 1X ONCE [place] Last administered on 10/24/16 13: 03; Start 10/24/16 at 13:30; Stop 10/24/16 at 13:31; Status DC Ondansetron HCl (Zofran) 4 mg PRN Q6HRS PRN IV NAUSEA/VOMITING Last administered on 10/24/16 18:16; Start 10/24/16 at 18:15 Active Scripts Active Protonix (Pantoprazole Sodium) 40 Mg Tablet.dr 1 Tab PO DAILY Reported NITRO-DUR 0.2mg/hr (Nitroglycerin) 1 Each Patch.td24 Hydrocodone-Apap 7.5-325 (Hydrocodone Bit/Acetaminophen) 1 Each Tablet Cyclobenzaprine Hcl 10 Mg Tablet NITROGLYCERIN SubLingual (Nitroglycerin) 0.4 Mg Tab.subl [Citracal] 2 Tbs PO DAILY Zocor (Simvastatin) 40 Mg Tablet 40 Mg PO HS Toprol Xl (Metoprolol Succinate) 25 Mg Tab.er.24h 25 Mg PO HS Aspir 81 (Aspirin) 81 Mg Tablet.dr 81 Mg PO DAILY Vitals/I & O Vital Sign - Last 24 Hours 10/24/16 10/24/16 10/24/16 10/24/16 15:00 19:04 19:29 20:00 Temp 97.9 98.0 97.9 98.0 Pulse 83 85 Resp 16 18 B/P (MAP) 93/51 (65) 80/33 (49) 108/57 (74) Pulse Ox 95 93 O2 Delivery Room Air Room Air Room Air 10/24/16 10/24/16 10/25/16 10/25/16 21:03 22:33 02:57 07:00 Temp 98.2 97.8 97.4 98.2 97.8 97.4 Pulse 85 69 76 80 Resp 20 18 19 B/P (MAP) 108/57 87/55 (66) 94/55 (68) 126/66 (86) Pulse Ox 93 94 93 O2 Delivery Room Air Room Air Room Air 10/25/16 10/25/16 08:05 10:41 Temp 98.1 98.1 Pulse 68 Resp 20 B/P (MAP) 111/74 (86) Pulse Ox 93 O2 Delivery Room Air Room Air Intake and Output 10/24/16 10/24/16 10/25/16 15:00 23:00 07:00 Intake Total 1600 ml 200 ml Output Total 1500 ml Balance 100 ml 200 ml KATHERIN BOWER MD Oct 25, 2016 11:27
[2016-10-25] MEDS ORDERED: LIDOCAINE 2% 20 ML VIAL. ONE (13:52)
[2016-10-25] MEDS ORDERED: IOHEXOL 350 MG/ML 100 ML VIAL. ONE ×2 (13:52→13:53)
[2016-10-25] MEDS ORDERED: VERAPAMIL 5 MG/2 ML VIAL. ONE (14:26)
[2016-10-25] MEDS ORDERED: NITROGLYCERIN 200 MCG/2 ML SYRINGE FOR CATH/VASC LAB. ONE (14:26)
[2016-10-25] MEDS ORDERED: fentaNYL PF VIAL 250 MCG/5 ML VIAL ONE (14:27)
[2016-10-25] MEDS ORDERED: MIDAZOLAM HCL/PF 5 MG/5 ML VIAL. ONE (14:27)
[2016-10-25] MEDS ORDERED: HEPARIN for IV BOLUS 10,000 UNIT/10 ML VIAL. ONE (14:27)
[2016-10-25] MEDS ORDERED: NITROGLYCERIN 200 MCG/2 ML SYRINGE FOR CATH/VASC LAB. IART ONE (15:00)
[2016-10-25] MEDS ORDERED: LIDOCAINE 2% 20 ML VIAL. IJ ONE (15:00)
[2016-10-25] MEDS ORDERED: MIDAZOLAM HCL/PF 5 MG/5 ML VIAL. IV ONE (15:00)
[2016-10-25] MEDS ORDERED: CONTRAST GIVEN MC PRN (15:00)
[2016-10-25] MEDS ORDERED: fentaNYL PF VIAL 250 MCG/5 ML VIAL IV ONE (15:00)
[2016-10-25] MEDS ORDERED: VERAPAMIL 5 MG/2 ML VIAL. IART ONE (15:00)
[2016-10-25] MEDS ORDERED: IODIXANOL 320 MG/ML 100 ML VIAL. IART ONE (15:00)
[2016-10-25] MEDS ORDERED: HEPARIN for IV BOLUS 10,000 UNIT/10 ML VIAL. IART ONE (15:00)
--- NOTE | 2016-10-25 15:05 | PDOC ---
MODERATE SEDATION ASSESSMENT RISKS/ALTERNATIVES Risks/Alternatives Risks and alternatives of this type of sedation and procedure discussed with: RISK/ALTERNATIVES: Patient H & P ON CHART H & P H & P on chart and reviewed for co-morbid conditions and appropriate labs. H&P ON CHART: Yes STATUS PREG STATUS ASSESSED: N/A MEDS/ALLERGIES REVIEWED Meds/Allergies Reviewed Medications and Allergies including time and route of recently administered narcotics and sedatives. MEDS/ALLERGIES REVIEWED: Yes ASA RATING ASA RATING: II AIRWAY ASSESSMENT Airway Assessment Airway patency, oral function limitations, presence of caps, crowns, dentures, partials, and ability to extend neck assessed. AIRWAY ASSESSMENT: Yes MALLAMPATI SCORE MALLAMPATI SCORE: II PRE-SEDATION ASSESSMENT PRE-SEDATION ASSESSMENT: Yes ELSIE TORRES MD Oct 25, 2016 15:05
--- NOTE | 2016-10-25 15:18 | CARD ---
APPROVED REPORT Procedure(s) performed: Left heart catheterization, selective coronary angiography and left ventricul ography via right transradial approach INDICATION The indication(s) include : unstable angina . PROCEDURE NARRATIVE After explaining the risks, benefits and alternative options, informed consent was obtained from catiie ent. Patient was brought to the cardiac [employer] and right wrist was prepped and draped in the usual fashion after confirming a positive modified Reynold's test. Arterial access was obtained in the [facility] t radial artery and a 6 Kitt[place] sheath was inserted. 6 [place] Robert catheter was used to perform abe ective angiography of the left and right coronary arteries. 6 [place] pigtail catheter was used to pe rform left ventriculography. Patient tolerated the procedure well. Hemostasis was achieved using TR band. There were no immediate complications. The following findings were noted. FINDINGS 1. Hemodynamics: Left ventricular end-diastolic pressure of 16 mmHg. No pullback gradient across th e aortic valve. 2. Left ventriculography: Posterobasal wall hypokinesis with ejection fraction estimated at 55%. No significant mitral regurgitation seen. 3. Coronary angiography: a. The left main coronary artery arose from the left sinus of Valsalva, gave rise to the left anteri or descending and left circumflex arteries and did not show any significant stenosis. b. The left anterior descending artery showed areas of ectasia in proximal segment without any signi ficant stenosis. c. The left circumflex artery did not show any significant stenosis. d. The right coronary artery was a large and dominant vessel arising from the right sinus of Valsalv a that showed 30% stenosis in proximal to mid segment, patent stents mid and distal segments and ecta tic segment just distal to the stent. Conclusion 1. No significant coronary artery disease with patent previously placed stents in the right coronary artery. 2. Posterobasal wall hypokinesis with ejection fraction estimated at 55% Recommendations Medical Therapy
[2016-10-25] MEDS: IV 1/2 NORMAL SALINE 1,000 ML IV SCH (16:55)
[2016-10-25] MEDS: CYCLOBENZAPRINE 10 MG TABLET. PO PRN (21:02)
[2016-10-25] MEDS: SIMVASTATIN 40 MG TABLET. PO SCH (21:02)
[2016-10-25] MEDS: METOPROLOL SUCC 24HR ER 25 MG TAB.ER.24H. PO SCH (21:02)
[2016-10-26 03:35] VITALS: BP 105/72
[2016-10-26 07:00] VITALS: BP 111/61
[2016-10-26] MEDS: IV 1/2 NORMAL SALINE 1,000 ML IV SCH (08:10)
[2016-10-26] MEDS: PANTOPRAZOLE 40 MG TABLET.DR. PO SCH (08:56)
[2016-10-26] MEDS: ASPIRIN ENTERIC COATED 81 MG TABLET.DR. PO SCH (08:57)
[2016-10-26 11:00] VITALS: BP 106/57
== END 2016-10-26 14:30 | disposition home or self-care (01) | DRG 287 ==
LOC: ER 09:14 → 2 NORTH 10:22
PROVIDERS: ADMIT Internal Medicine; ATTEND Internal Medicine
PROC: 4A023N7 Measurement of Cardiac Sampling and Pressure, Left Heart, Percutaneous Approach (ICD-10-PCS; principal; 2016-10-25)
PROC: B2111ZZ Fluoroscopy of Multiple Coronary Arteries using Low Osmolar Contrast (ICD-10-PCS; 2016-10-25)
PROC: B2151ZZ Fluoroscopy of Left Heart using Low Osmolar Contrast (ICD-10-PCS; 2016-10-25)
DX: R07.9 Chest pain, unspecified (principal); E78.5 Hyperlipidemia, unspecified; Z95.5 Presence of coronary angioplasty implant and graft; Z87.442 Personal history of urinary calculi; Z82.49 Family history of ischemic heart disease and other diseases of the circulatory system; K59.00 Constipation, unspecified; K21.9 Gastro-esophageal reflux disease without esophagitis; I49.49 Other premature depolarization; G89.29 Other chronic pain; Z90.49 Acquired absence of other specified parts of digestive tract; I25.2 Old myocardial infarction; I10 Essential (primary) hypertension; M19.90 Unspecified osteoarthritis, unspecified site; Z90.89 Acquired absence of other organs; I25.10 Atherosclerotic heart disease of native coronary artery without angina pectoris; M54.9 Dorsalgia, unspecified
CPT/HCPCS: 36415; 71010; 80053; 80061; 83690; 83880; 84484; 85027; 85610; 85730; 93005; 93458; C1769; C1892; J2250; J2405; J3010; J3490; 99285-25

== ENCOUNTER 2016-11-07 19:11 | Emergency (ER) | payer MEDICARE ==
[~2016-11-07] VITALS: Ht 172.7 cm; Wt 88.5 kg
[~2016-11-07 19:11] MED LIST changes: +CYCL10TA2; +HYDR-2762; +NITR0.4T22; +NITR1PAT5
[2016-11-07] MEDS ORDERED: MORPHINE SULFATE 4 MG/ML DISP.SYRIN. IV/SQ PRN (20:00)
[2016-11-07] MEDS ORDERED: IV NORMAL SALINE 1000ML BAG 1,000 ML IV SCH (20:00)
[2016-11-07] MEDS ORDERED: ONDANSETRON PF 4 MG/2 ML VIAL. IV ONE (20:00)
--- NOTE | 2016-11-07 20:04 | PHYS DOC ---
Past Medical History Past Medical History: Hypertension, Kidney Stone, [place], Other Additional Past Medical Histor: NC(12-15 YRS AGO) Past Surgical History: Cholecystectomy, Other Additional Past Surgical Histo: cardiac stents Alcohol Use: Rarely Drug Use: None Adult General Chief Complaint Chief Complaint: WEAKNESS/GENERALIZED HPI HPI Patient is a 71 year old male who presents with complaint of generalized weakness, and, chills, and nausea which started shortly or to arrival. Patient states that he has been having these symptoms off and on. Patient has history of chronic low back pain and states that he thinks this could be contributing to his symptoms. Patient also states that he has history of coronary artery disease and has had multiple stents placed over 10 years ago. The patient was recently admitted due to complaints of chest pain where he underwent stress testing that was negative for new blockage. Patient states that his back pain has become very severe and rates currently as 9 out of 10. Patient states that the pain worsens with movement. Patient states that currently he is having lightheadedness when standing. Patient denies chest pain. Patient states when his pain worsens he gets short of breath. Review of Systems Review of Systems Constitutional: Generalized weakness [] Eyes: Denies change in visual acuity, redness, or eye pain [] HENT: Denies nasal congestion or sore throat [] Respiratory: Denies cough or shortness of breath [] Cardiovascular: Denies chest pain or edema [] GI: Nausea, denies abdominal pain, vomiting, bloody stools or diarrhea [] : Denies dysuria or hematuria [] Musculoskeletal: Back pain [] Integument: Denies rash or skin lesions [] Neurologic: Denies headache, focal weakness or sensory changes [] Current Medications Current Medications Current Medications Medications (Trade) Dose Ordered Sig/Kaylie Start Time Stop Time Status Last Admin Dose Admin Diazepam (Valium) 5 mg 1X ONCE 11/07/16 20:30 11/07/16 20:31 DC 11/07/16 20:32 5 MG Fentanyl Citrate (Fentanyl 2ml Vial) 25 mcg PRN Q15MIN PRN 11/07/16 20:30 11/08/16 20:29 Info (Do NOT chart on this entry -- for MONITORING) 1 each PRN DAILY PRN 11/07/16 21:15 11/09/16 21:14 Iohexol (Omnipaque 350 Mg/ml) 90 ml 1X ONCE 11/07/16 21:00 11/07/16 21:09 DC 11/07/16 21:35 90 ML Morphine Sulfate 4 mg PRN Q15MIN PRN 11/07/16 20:00 11/07/16 20:19 DC Ondansetron HCl (Zofran) 4 mg 1X ONCE 11/07/16 20:00 11/07/16 20:12 DC 11/07/16 20:15 4 MG Sodium Chloride 1,000 ml @ 100 mls/hr Q10H 11/07/16 20:00 11/08/16 05:59 11/07/16 20:15 100 MLS/HR Allergies Allergies Allergies Coded Allergies Type Severity Reaction Last Updated Verified No Known Drug Allergies 03/03/14 No Physical Exam Physical Exam Constitutional: Alert, afebrile, appears in moderate discomfort. [] HENT: Normocephalic, atraumatic, bilateral external ears normal, oropharynx moist, no oral exudates, nose normal. [] Eyes: PERRLA, EOMI, conjunctiva normal, no discharge. [] Neck: Normal range of motion, no tenderness, supple, no stridor. [] Cardiovascular: Bigeminy, pulse rate 45, no murmur [] Lungs & Thorax: Bilateral breath sounds clear to auscultation [] Abdomen: Bowel sounds normal, soft, no tenderness, no masses, no pulsatile masses. [] Skin: Warm, dry, no erythema, no rash. [] Back: Bilateral mid and lower lumbar tenderness to palpation, no midline tenderness, no flank ecchymosis [] Extremities: No tenderness, no cyanosis, no clubbing, ROM intact, no edema. [] Neurologic: Alert and oriented X 3, normal motor function, normal sensory function, no focal deficits noted. [] Current Patient Data Vital Signs Vital Signs Date Time Temp Pulse Resp B/P (MAP) Pulse Ox O2 Delivery O2 Flow Rate FiO2 11/07/16 20:43 24 87 11/07/16 19:25 98.6 72 149/73 (98) Room Air 98.6 Lab Values Laboratory Tests Test 11/07/16 19:26 11/07/16 20:00 White Blood Count 7.9 x10^3/uL (4.0-11.0) Red Blood Count 5.06 x10^6/uL (4.30-5.70) Hemoglobin 15.2 g/dL (13.0-17.5) Hematocrit 44.4 % (39.0-53.0) Mean Corpuscular Volume 88 fL (79-100) Mean Corpuscular Hemoglobin 30 pg (25-35) Mean Corpuscular Hemoglobin Concent 34 g/dL (31-37) Red Cell Distribution Width 14.3 % (11.5-14.5) Platelet Count 112 x10^3/uL (140-400) L Neutrophils (%) (Auto) 71 % (31-73) Lymphocytes (%) (Auto) 17 % (24-48) L Monocytes (%) (Auto) 11 % (0-9) H Eosinophils (%) (Auto) 1 % (0-3) Basophils (%) (Auto) 0 % (0-3) Neutrophils # (Auto) 5.6 x10^3uL (1.8-7.7) Lymphocytes # (Auto) 1.3 x10^3/uL (1.0-4.8) Monocytes # (Auto) 0.8 x10^3/uL (0.0-1.1) Eosinophils # (Auto) 0.1 x10^3/uL (0.0-0.7) Basophils # (Auto) 0.0 x10^3/uL (0.0-0.2) Sodium Level 140 mmol/L (136-145) Potassium Level 4.1 mmol/L (3.5-5.1) Chloride Level 105 mmol/L (98-107) Carbon Dioxide Level 26 mmol/L (21-32) Anion Gap 9 (6-14) Blood Urea Nitrogen 14 mg/dL (8-26) Creatinine 1.0 mg/dL (0.7-1.3) Estimated GFR (Cockcroft-Gault) 73.2 BUN/Creatinine Ratio 14 (6-20) Glucose Level 108 mg/dL (70-99) H Calcium Level 8.2 mg/dL (8.5-10.1) L Magnesium Level 2.1 mg/dL (1.8-2.4) Total Bilirubin 0.6 mg/dL (0.2-1.0) Aspartate Amino Transferase (AST) 18 U/L (15-37) Alanine Aminotransferase (ALT) 12 U/L (16-63) L Alkaline Phosphatase 68 U/L (46-116) Creatine Kinase 100 U/L (39-308) Creatine Kinase MB (Mass) 3.7 ng/mL (0.0-3.6) H Creatine Kinase MB Relative Index 3.7 % (0-4) Troponin I Quantitative 0.027 ng/mL (0.000-0.055) WI-Tjb-Y-Type Natriuretic Peptide 2113 pg/mL (0-124) H Total Protein 6.6 g/dL (6.4-8.2) Albumin 3.7 g/dL (3.4-5.0) Albumin/Globulin Ratio 1.3 (1.0-1.7) Lipase 189 U/L (73-393) Urine Collection Type Void Urine Color Yellow Urine Clarity Clear Urine pH 5.5 Urine Specific [place] 1.015 Urine Protein Negative mg/dL (NEG-TRACE) Urine Glucose (UA) Negative mg/dL (NEG) Urine Ketones (Stick) Negative mg/dL (NEG) Urine Blood Negative (NEG) Urine Nitrite Negative (NEG) Urine Bilirubin Negative (NEG) Urine Urobilinogen Dipstick 0.2 mg/dL (0.2 mg/dL) Urine Leukocyte Esterase Negative (NEG) Urine RBC Rare /HPF (0-2) Urine WBC 0 /HPF (0-4) Urine Squamous Epithelial Cells Occ /LPF Urine Bacteria 0 /HPF (0-FEW) Urine Hyaline Casts Occasional /HPF Urine Mucus Marked /LPF Laboratory Tests 11/07/16 19:26 Laboratory Tests 11/07/16 19:26 EKG EKG Interpreted by me: Heart rate 83, bigeminy, leftward axis, no acute ST elevations or depressions [] Radiology/Procedures Radiology/Procedures [facility] [address] [place] [address] IMAGING REPORT Signed PATIENT: DONALD DELONG ACCOUNT: [id number] : 1945 LOCATION: ER AGE: 71 SEX: M EXAM STATUS: REG ER ORD. PHYSICIAN: WILIAN SRIVASTAVA MD REASON: rule out aortic dissection PROCEDURE: CT ANGIO CHEST ABD PELVIS Examination: CT angiogram chest abdomen pelvis HISTORY: History of chest pain, dissection COMPARISON: None available TECHNIQUE: Axial CT angiography Images of the chest abdomen and pelvis were performed with IV contrast. Coronal and sagittal 3-D MIP reformats were performed Exposure: One or more of the following individualized dose reduction techniques were utilized for this examination: 1. Automated exposure control 2. Adjustment of the mA and/or kV according to patient size 3. Use of iterative reconstruction technique Findings: The visualized thyroid gland grossly appears unremarkable. The central airways are patent. Mild cardiomegaly. Coronary artery calcifications identified. The caliber of the aorta grossly appears unremarkable. No evidence of aortic dissection identified. The origin of the great vessels from the arch of the aorta are patent. There is a small focal outpouching, measuring 1.1 cm, identified in the anterior aspect of the abdominal aorta just superior to the level of the inferior mesenteric artery. Mild left lingular and bibasilar lung linear airspace opacity likely atelectasis or infiltrates. No evidence of pleural effusion or pneumothorax. No radiologically significant mediastinal lymphadenopathy. Mild decreased attenuation noted throughout the liver likely hepatic steatosis. There is a cystic structure identified in the right lobe of the liver measuring 1.4 cm. The gallbladder is mildly distended. Visualized spleen, adrenals grossly appears unremarkable. The visualized pancreas grossly appears unremarkable. The stomach is mildly distended. Small bowel is nondilated. Appendix is normal. Feces and gas noted in the colon. Few sigmoid colon diverticulosis. The bilateral kidneys enhance symmetrically. Multiple cystic structures identified in the left kidney likely cysts. The largest cystic structure measuring in the left kidney measures 4.2 cm. The visualized the celiac artery, superior mesenteric artery, bilateral renal arteries, inferior mesenteric artery are patent. The bilateral internal and external iliac arteries are patent. Scattered mild atherosclerotic calcifications identified in the aorta. Urinary bladder is mildly distended. Mildly enlarged prostate gland. Moderate degenerative changes visualized lumbar spine. IMPRESSION: 1. No evidence of aortic dissection. There is a small focal outpouching, measuring 1.1 cm, identified in the anterior aspect of the abdominal aorta just superior to the level of the inferior mesenteric artery, probably focal ectasia. 2. Coronary artery calcifications. 3. Mild hepatic steatosis. 4. 1.4 cm cyst or cystic lesion identified in the right lobe of the liver. 5. Left renal cysts. Electronically signed by: Larry Patel MD (11/07/2016 10:03 PM) DICTATED and SIGNED BY: LARRY PATEL MD DATE: 11/07/162151 CC: WILIAN SRIVASTAVA MD; JENNI BOURNE MD ~ [] Course & Med Decision Making Course & Med Decision Making Pertinent Labs and Imaging studies reviewed. (See chart for details) The patient was given IV Valium and IV fluids in the emergency department. On reevaluation, patient states he feels much better at this time. Patient's CTA shows no acute aortic pathology. Patient's symptoms are likely due to exacerbation of chronic low back pain. The patient will be treated with oral Valium as a muscle relaxant. Patient has an appointment in the next 4 days with his primary doctor. Advised return emergency department for any worsening symptoms. Patient voiced understanding and in agreement with treatment plan. Dragon Disclaimer Dragon Disclaimer This electronic medical record was generated, in whole or in part, using a voice recognition dictation system. Departure Departure Impression: Primary Impression: Acute exacerbation of chronic low back pain Disposition: HOME, SELF-CARE Condition: IMPROVED Referrals: JENNI BOURNE MD (PCP) Patient Instructions: Back Pain, Adult Additional Instructions: Follow-up to primary doctor in the next 3 days. Return to the emergency department for any worsening symptoms. Scripts Diazepam (VALIUM) 5 Mg Tablet 5 MG PO QHS Y for MUSCLE SPASMS, #30 TAB Prov: WILIAN SRIVASTAVA MD 11/07/16 WILIAN SRIVASTAVA MD Nov 07, 2016 20:04
[2016-11-07 20:09] LABS: BASO % 0 % (0-3); EOS % 1 % (0-3); HEMATOCRIT 44.4 % (39.0-53.0); HEMOGLOBIN 15.2 g/dL (13.0-17.5); LYMPH # 1.3 x10^3/uL (1.0-4.8); LYMPH % 17 % (24-48); MEAN CORPUSCULAR HEMOGLOBIN 30 pg (25-35); MEAN CORPUSCULAR HGB CONC 34 g/dL (31-37); MEAN CORPUSCULAR VOLUME 88 fL (79-100); MONO % 11 % (0-9); NEUT % 71 % (31-73); PLATELET COUNT 112 x10^3/uL (140-400); RED BLOOD COUNT 5.06 x10^6/uL (4.30-5.70); RED CELL DISTRIBUTION WIDTH 14.3 % (11.5-14.5); WHITE BLOOD COUNT 7.9 x10^3/uL (4.0-11.0)
[2016-11-07 20:11] LABS: BILIRUBIN,URINE NEGATIVE (NEG); GLUCOSE,URINE NEGATIVE (NEG); NITRITE,URINE NEGATIVE (NEG); PH,URINE 5.5; PROTEIN,URINE NEGATIVE (NEG-TRACE); UROBILINOGEN,URINE 0.2 mg/dL (0.2 mg/dL)
[2016-11-07 20:24] LABS: BACTERIA,URINE 0 /HPF (0-FEW); RBC,URINE RARE /HPF (0-2); SQUAMOUS EPITHELIAL CELL,UR OCC /LPF; WBC,URINE 0 /HPF (0-4)
[2016-11-07] MEDS ORDERED: fentaNYL PF VIAL 100 MCG/2 ML VIAL IV PRN (20:30)
[2016-11-07 20:32] LABS: CALCIUM 8.2 mg/dL (8.5-10.1); GFR 73.2; POTASSIUM 4.1 mmol/L (3.5-5.1)
[2016-11-07 20:37] LABS: ALBUMIN 3.7 g/dL (3.4-5.0); ALBUMIN/GLOBULIN RATIO 1.3 (1.0-1.7); MAGNESIUM 2.1 mg/dL (1.8-2.4); TOTAL BILIRUBIN 0.6 mg/dL (0.2-1.0); TOTAL PROTEIN 6.6 g/dL (6.4-8.2)
[2016-11-07 20:39] LABS: CKMB MASS 3.7 ng/mL (0.0-3.6)
[2016-11-07] MEDS ORDERED: IOHEXOL 350 MG/ML 100 ML VIAL. IV ONE (21:00)
[2016-11-07] MEDS ORDERED: CONTRAST GIVEN MC PRN (21:15)
--- NOTE | 2016-11-07 22:06 | RAD ---
Examination: CT angiogram chest abdomen pelvis HISTORY: History of chest pain, dissection COMPARISON: None available TECHNIQUE: Axial CT angiography Images of the chest abdomen and pelvis were performed with IV contrast. Coronal and sagittal 3-D MIP reformats were performed Exposure: One or more of the following individualized dose reduction techniques were utilized for this examination: 1. Automated exposure control 2. Adjustment of the mA and/or kV according to patient size 3. Use of iterative reconstruction technique Findings: The visualized thyroid gland grossly appears unremarkable. The central airways are patent. Mild cardiomegaly. Coronary artery calcifications identified. The caliber of the aorta grossly appears unremarkable. No evidence of aortic dissection identified. The origin of the great vessels from the arch of the aorta are patent. There is a small focal outpouching, measuring 1.1 cm, identified in the anterior aspect of the abdominal aorta just superior to the level of the inferior mesenteric artery. Mild left lingular and bibasilar lung linear airspace opacity likely atelectasis or infiltrates. No evidence of pleural effusion or pneumothorax. No radiologically significant mediastinal lymphadenopathy. Mild decreased attenuation noted throughout the liver likely hepatic steatosis. There is a cystic structure identified in the right lobe of the liver measuring 1.4 cm. The gallbladder is mildly distended. Visualized spleen, adrenals grossly appears unremarkable. The visualized pancreas grossly appears unremarkable. The stomach is mildly distended. Small bowel is nondilated. Appendix is normal. Feces and gas noted in the colon. Few sigmoid colon diverticulosis. The bilateral kidneys enhance symmetrically. Multiple cystic structures identified in the left kidney likely cysts. The largest cystic structure measuring in the left kidney measures 4.2 cm. The visualized the celiac artery, superior mesenteric artery, bilateral renal arteries, inferior mesenteric artery are patent. The bilateral internal and external iliac arteries are patent. Scattered mild atherosclerotic calcifications identified in the aorta. Urinary bladder is mildly distended. Mildly enlarged prostate gland. Moderate degenerative changes visualized lumbar spine. IMPRESSION: 1. No evidence of aortic dissection. There is a small focal outpouching, measuring 1.1 cm, identified in the anterior aspect of the abdominal aorta just superior to the level of the inferior mesenteric artery, probably focal ectasia. 2. Coronary artery calcifications. 3. Mild hepatic steatosis. 4. 1.4 cm cyst or cystic lesion identified in the right lobe of the liver. 5. Left renal cysts. Electronically signed by: Larry Patel MD (11/07/2016 10:03 PM)
[2016-11-07] MEDS ORDERED: DIAZ5TAB PO (23:35)
[2016-11-07 23:45] VITALS: BP 118/71
--- NOTE | 2016-11-08 07:10 | EKG ---
[facility] [address] [place] [address] Test Date: 2016-11-07 Test Time: 19:46:16 Pat Name: DONALD DELONG Department: Room: Gender: M Serologist: : 1945 Requested By: WILIAN SRIVASTAVA Order Number: [id number] Reading MD: Measurements Intervals [place] Rate: 83 P: 31 WI: 162 QRS: -26 QRSD: 92 T: -84 QT: 434 QTc: 517 Interpretive Statements SINUS RHYTHM ATRIAL PREMATURE COMPLEX(ES), BIGEMINY LEFTWARD AXIS LVH WITH REPOLARIZATION ABNORMALITY PROLONGED QT ABNORMAL ECG RI6.01 No previous ECG available for comparison
--- NOTE | 2016-11-08 07:51 | RAD ---
Indication chest pain. A single view of the chest was obtained and is compared to an examination 10/23/2016. The heart and pulmonary vessels appear normal. The lungs are clear. There is no pleural fluid or pneumothorax. IMPRESSION: No acute or focal process is seen in the chest
== END 2016-11-08 00:01 | disposition home or self-care (01) ==
LOC: ER 19:11
DX: G89.29 Other chronic pain (principal); M54.5 Low back pain; R53.1 Weakness; R68.83 Chills (without fever); R11.0 Nausea; R42 Dizziness and giddiness; R06.02 Shortness of breath; I10 Essential (primary) hypertension; I25.2 Old myocardial infarction; I25.10 Atherosclerotic heart disease of native coronary artery without angina pectoris; Z87.442 Personal history of urinary calculi; Z95.5 Presence of coronary angioplasty implant and graft; Z90.49 Acquired absence of other specified parts of digestive tract
CPT/HCPCS: 36415; 71010; 71275; 74174; 80053; 81001; 82553; 83690; 83735; 83880; 84484; 85027; 93005; 96361; 96374; 96375; 99285; J2405; J3360; J7030; Q9967

== ENCOUNTER 2018-01-13 17:31 | Emergency (ER) | payer MEDICARE ==
[~2018-01-13] VITALS: Ht 172.7 cm; Wt 84.9 kg
[~2018-01-13 17:31] MED LIST changes: +DIAZ5TAB PO; +METO-239 PO; -METO25TA9 PO
[2018-01-13 18:30] VITALS: BP 137/73
--- NOTE | 2018-01-13 19:20 | PHYS DOC ---
Past Medical History Past Medical History: Hypertension, Kidney Stone, [place], Other Additional Past Medical Histor: [place](12-15 YRS AGO) Past Surgical History: Cholecystectomy, Other Additional Past Surgical Histo: cardiac stents Alcohol Use: Rarely Drug Use: None Adult General Chief Complaint Chief Complaint: OTHER COMPLAINTS HPI HPI Patient is a 72 year old m p/w cc of thought a piece of gristle or small bone got stuck in throat. occurred at lunch. it has since passed he thinks he no longer feels it but he wanted an xray to be safe. no abdo pain no vomitnig. this did happen once before. Review of Systems Review of Systems Constitutional: Denies fever or chills [] Eyes: Denies change in visual acuity, redness, or eye pain [] HENT: Denies nasal congestion or sore throat [] GI: Denies abdominal pain, nausea, vomiting, bloody stools or diarrhea [] : Denies dysuria or hematuria [] Musculoskeletal: Denies back pain or joint pain [] All other systems were reviewed and found to be within normal limits, except as documented in this note. Allergies Allergies Allergies Coded Allergies Type Severity Reaction Last Updated Verified No Known Drug Allergies 03/03/14 No Physical Exam Physical Exam Constitutional: Well developed, well nourished, no acute distress, non-toxic appearance. [] HENT: Normocephalic, atraumatic, bilateral external ears normal, oropharynx moist, no oral exudates, nose normal. [] Eyes: PERRLA, EOMI, conjunctiva normal, no discharge. [] Neck: Normal range of motion, no tenderness, supple, no stridor. [] normal effort no increased work of breathing. Abdomen: Bowel sounds normal, soft, no tenderness, no masses, no pulsatile masses. [] Skin: Warm, dry, no erythema, no rash. [] Extremities: No tenderness, no cyanosis, no clubbing, ROM intact, no edema. [] Neurologic: Alert and oriented X 3, normal motor function, normal sensory function, no focal deficits noted. [] Psychologic: Affect normal, judgement normal, mood normal. [] Current Patient Data Vital Signs Vital Signs Date Time Temp Pulse Resp B/P (MAP) Pulse Ox O2 Delivery O2 Flow Rate FiO2 01/13/18 18:30 97.6 72 18 137/73 (94) 95 Room Air 97.6 EKG EKG [] Radiology/Procedures Radiology/Procedures [] Impressions: my interp neg cxr. Course & Med Decision Making Course & Med Decision Making Pertinent Labs and Imaging studies reviewed. (See chart for details) []72 yo m with possible esophageal fb, now resolved. cxr showed no obvious pathology. pt is asymptomatic, tolerating po reassurance provided. return precautiosn discussed. Dragon Disclaimer Dragon Disclaimer This electronic medical record was generated, in whole or in part, using a voice recognition dictation system. Departure Departure Impression: Primary Impression: Esophageal foreign body Disposition: HOME, SELF-CARE Condition: STABLE Patient Instructions: Foreign Body-Brief Additional Instructions: your foreign body appears to hve resolved. please follow up [facility] primary doctor or return to er for any new symptoms or concerns. BERNARD HOLLIS MD Jan 13, 2018 19:20
--- NOTE | 2018-01-14 09:07 | RAD ---
EXAM: PORTABLE CHEST 1V DATE: 01/13/2018 7:10 PM INDICATION: Pt states that a chicken bone was stuck in his upper esophagus COMPARISON: 11/07/2016 FINDINGS: The heart is not enlarged. Mediastinal and hilar contours are normal. Platelike opacities in the left lung base likely subsegmental atelectasis, stable. Otherwise, no focal parenchymal airspace opacity. Blunting of left costophrenic angle is stable to 11/07/2016, pleural thickening. No pleural effusion or pneumothorax. Prominent loop of colon is incidentally seen in the right upper quadrant. IMPRESSION: 1. Minimal opacity left lung base likely subsegmental atelectasis. 2. No lobar consolidation. 3. No pneumothorax. No definite radiopaque foreign body is convincingly identified. Electronically signed by: Lasha Mackay MD (01/14/2018 9:04 AM) [facility]
== END 2018-01-13 19:25 | disposition home or self-care (01) ==
LOC: ER 17:31
DX: T18.128A Food in esophagus causing other injury, initial encounter (principal); I10 Essential (primary) hypertension; I25.2 Old myocardial infarction; X58.XXXA Exposure to other specified factors, initial encounter; Y93.89 Activity, other specified; Y92.89 Other specified places as the place of occurrence of the external cause; Y99.8 Other external cause status
CPT/HCPCS: 71045; 99284

== ENCOUNTER 2018-08-09 02:21 | Emergency (ER) | payer MEDICARE ==
[~2018-08-09] VITALS: Ht 170.2 cm; Wt 86.2 kg
[~2018-08-09 02:21] MED LIST changes: -HYDR-2762; +HYDR-2765
[2018-08-09 03:20] LABS: BASO % 0 % (0-3); EOS # 0.1 x10^3/uL (0.0-0.7); EOS % 1 % (0-3); HEMATOCRIT 43.5 % (39.0-53.0); HEMOGLOBIN 14.4 g/dL (13.0-17.5); LYMPH # 1.1 x10^3/uL (1.0-4.8); LYMPH % 18 % (24-48); MEAN CORPUSCULAR HEMOGLOBIN 29 pg (25-35); MEAN CORPUSCULAR HGB CONC 33 g/dL (31-37); MEAN CORPUSCULAR VOLUME 89 fL (79-100); MONO # 0.7 x10^3/uL (0.0-1.1); MONO % 11 % (0-9); NEUT # 4.4 x10^3uL (1.8-7.7); NEUT % 70 % (31-73); PLATELET COUNT 114 x10^3/uL (140-400); RED BLOOD COUNT 4.91 x10^6/uL (4.30-5.70); RED CELL DISTRIBUTION WIDTH 14.6 % (11.5-14.5); WHITE BLOOD COUNT 6.3 x10^3/uL (4.0-11.0)
[2018-08-09 03:21] LABS: BILIRUBIN,URINE NEGATIVE (NEG); CLARITY,URINE CLEAR; COLOR,URINE YELLOW; NITRITE,URINE NEGATIVE (NEG); PROTEIN,URINE NEGATIVE (NEG-TRACE); UROBILINOGEN,URINE 0.2 mg/dL (0.2 mg/dL)
[2018-08-09] MEDS ORDERED: KETOROLAC 15 MG/ML VIAL. IV ONE (03:30)
[2018-08-09] MEDS ORDERED: IV NORMAL SALINE 1000ML BAG 1,000 ML IV ONE (03:30)
[2018-08-09] MEDS ORDERED: METOCLOPRAMIDE HCL 10 MG/2 ML VIAL. IV ONE (03:30)
[2018-08-09 03:33] LABS: BACTERIA,URINE 0 /HPF (0-FEW); RBC,URINE 0 /HPF (0-2); SQUAMOUS EPITHELIAL CELL,UR OCC /LPF; WBC,URINE RARE /HPF (0-4)
[2018-08-09 03:39] LABS: CALCIUM 8.4 mg/dL (8.5-10.1); GFR 72.8; POTASSIUM 3.8 mmol/L (3.5-5.1)
[2018-08-09 03:43] LABS: ALBUMIN 3.5 g/dL (3.4-5.0); ALBUMIN/GLOBULIN RATIO 1.1 (1.0-1.7); MAGNESIUM 2.1 mg/dL (1.8-2.4); TOTAL BILIRUBIN 0.7 mg/dL (0.2-1.0); TOTAL PROTEIN 6.6 g/dL (6.4-8.2)
--- NOTE | 2018-08-09 04:11 | RAD ---
Abdominal and Pelvis CT, Without Contrast: History: Right flank and right lower quadrant pain. Comparison: None. Procedure: Axial images are obtained of the abdomen and pelvis, without IV or oral contrast. CT Abdomen without Contrast: Findings: Evaluation of solid organs is limited without contrast. Evaluation of stomach and bowel is limited without oral contrast. Liver: 2.2 cm cyst at the dome. Spleen: Normal. Pancreas: Normal. Adrenal Glands: Normal. Kidneys: There are multiple small nonobstructive stones in the left renal pelvis. There is multiple hypoattenuating lesions in the left kidney. There is no free air or free fluid. There is no lymphadenopathy. There is degenerative changes of lumbar spine with multilevel marked central and neuroforaminal stenosis. Impression: Please see CT Pelvis without Contrast. End Impression. 1. Multiple lesions in the liver could be complex cysts. Patient should have a follow-up ultrasound as an outpatient. 2. No evidence of obstructive uropathy. Findings: The appendix is normal. There is fat-containing inguinal canals bilaterally. The urinary bladder appears normal. There is no free fluid. There is no lymphadenopathy. There is no pericolonic inflammation identified. Impression: No evidence of urolithiasis or obstructive uropathy. End impression PQRS Compliance Statement: One or more of the following individualized dose reduction techniques were utilized for this examination: 1. Automated exposure control 2. Adjustment of the mA and/or kV according to patient size 3. Use of iterative reconstruction technique Electronically signed by: Baljeet Hill III, MD (08/09/2018 4:08 AM) [id number]
--- NOTE | 2018-08-09 04:14 | PHYS DOC ---
Past Medical History Past Medical History: Hypertension, Kidney Stone, [place], Other Additional Past Medical Histor: AL(12-15 YRS AGO) Past Surgical History: Other Additional Past Surgical Histo: cardiac stents Smoking: Quit Greater Than 1 Year Alcohol Use: Rarely Drug Use: None Adult General Chief Complaint Chief Complaint: FLANK PAIN HPI HPI Patient is a 73 year old male who presents with right sided back pain, dizziness, nausea, and generalized weakness for the past one week. Patient states that he strained his back six days ago while lifting a heavy object in his garage. Patient describes the pain as a constant dull ache and rates it to be 4/10. Patient states that applying heating pads help with his pain and that movement worsens the pain. Patient denies any radiation of the pain to his groin. Patient has a history of chronic back pain. Denies hematuria and sick contacts. Review of Systems Review of Systems Constitutional: Denies fever or chills. Eyes: Denies change in visual acuity or eye pain HENT: Denies nasal congestion or sore throat. Respiratory: Denies cough or shortness of breath. Cardiovascular: Denies chest pain or palpitations. GI: Denies abdominal pain or vomiting. : Denies dysuria or hematuria. Musculoskeletal: Reports chronic back pain. Denies joint pain. Integument: Denies rash or skin lesions. Neurologic: Denies focal weakness or sensory changes Complete systems were reviewed and found to be within normal limits, except as documented in this note. Current Medications Current Medications Current Medications Medications (Trade) Dose Ordered Sig/Kaylie Start Time Stop Time Status Last Admin Dose Admin Ketorolac Tromethamine (Toradol 15mg Vial) 15 mg 1X ONCE 08/09/18 03:30 08/09/18 03:31 DC 08/09/18 03:53 15 MG Metoclopramide HCl (Reglan Vial) 10 mg 1X ONCE 08/09/18 03:30 08/09/18 03:31 DC 08/09/18 03:53 10 MG Sodium Chloride 1,000 ml @ 1,000 mls/hr 1X ONCE 08/09/18 03:30 08/09/18 04:29 DC 08/09/18 03:53 1,000 MLS/HR Allergies Allergies Allergies Coded Allergies Type Severity Reaction Last Updated Verified No Known Drug Allergies 03/03/14 No Physical Exam Physical Exam Constitutional: Well developed, well nourished, no acute distress. HENT: Normocephalic, atraumatic, oropharynx moist. Eyes: PERRL, conjunctiva without erythema. Neck: Normal range of motion, no tenderness, supple. Cardiovascular:Heart rate regular rhythm, no murmur. Lungs & Thorax: Bilateral breath sounds clear to auscultation. Abdomen: Soft, tenderness in the right lower quadrant on palpation. Negative heel strike sign. Negative psoas sign. Negative obturator sign. Skin: Warm, dry, no rash. Back: Tenderness of the right paralumbar area on palpation without any erythema or ecchymosis. No midline tenderness. Right flank tenderness on palpation. Extremities: No tenderness, ROM intact, no edema. Neurologic: Alert and oriented X 3, no focal deficits noted. Psychologic: Affect normal. Speech normal. Current Patient Data Vital Signs Vital Signs Date Time Temp Pulse Resp B/P (MAP) Pulse Ox O2 Delivery O2 Flow Rate FiO2 08/09/18 02:40 97.5 95 18 147/70 (95) 95 Room Air 97.5 Lab Values Laboratory Tests Test 08/09/18 02:55 08/09/18 03:10 Urine Collection Type Unknown Urine Color Yellow Urine Clarity Clear Urine pH 5.0 Urine Specific [place] 1.015 Urine Protein Negative mg/dL (NEG-TRACE) Urine Glucose (UA) Negative mg/dL (NEG) Urine Ketones (Stick) Negative mg/dL (NEG) Urine Blood Negative (NEG) Urine Nitrite Negative (NEG) Urine Bilirubin Negative (NEG) Urine Urobilinogen Dipstick 0.2 mg/dL (0.2 mg/dL) Urine Leukocyte Esterase Negative (NEG) Urine RBC 0 /HPF (0-2) Urine WBC Rare /HPF (0-4) Urine Squamous Epithelial Cells Occ /LPF Urine Bacteria 0 /HPF (0-FEW) Urine Mucus Mod /LPF White Blood Count 6.3 x10^3/uL (4.0-11.0) Red Blood Count 4.91 x10^6/uL (4.30-5.70) Hemoglobin 14.4 g/dL (13.0-17.5) Hematocrit 43.5 % (39.0-53.0) Mean Corpuscular Volume 89 fL (79-100) Mean Corpuscular Hemoglobin 29 pg (25-35) Mean Corpuscular Hemoglobin Concent 33 g/dL (31-37) Red Cell Distribution Width 14.6 % (11.5-14.5) H Platelet Count 114 x10^3/uL (140-400) L Neutrophils (%) (Auto) 70 % (31-73) Lymphocytes (%) (Auto) 18 % (24-48) L Monocytes (%) (Auto) 11 % (0-9) H Eosinophils (%) (Auto) 1 % (0-3) Basophils (%) (Auto) 0 % (0-3) Neutrophils # (Auto) 4.4 x10^3uL (1.8-7.7) Lymphocytes # (Auto) 1.1 x10^3/uL (1.0-4.8) Monocytes # (Auto) 0.7 x10^3/uL (0.0-1.1) Eosinophils # (Auto) 0.1 x10^3/uL (0.0-0.7) Basophils # (Auto) 0.0 x10^3/uL (0.0-0.2) Sodium Level 142 mmol/L (136-145) Potassium Level 3.8 mmol/L (3.5-5.1) Chloride Level 104 mmol/L (98-107) Carbon Dioxide Level 26 mmol/L (21-32) Anion Gap 12 (6-14) Blood Urea Nitrogen 14 mg/dL (8-26) Creatinine 1.0 mg/dL (0.7-1.3) Estimated GFR (Cockcroft-Gault) 72.8 BUN/Creatinine Ratio 14 (6-20) Glucose Level 109 mg/dL (70-99) H Calcium Level 8.4 mg/dL (8.5-10.1) L Magnesium Level 2.1 mg/dL (1.8-2.4) Total Bilirubin 0.7 mg/dL (0.2-1.0) Aspartate Amino Transferase (AST) 18 U/L (15-37) Alanine Aminotransferase (ALT) 10 U/L (16-63) L Alkaline Phosphatase 66 U/L (46-116) Total Protein 6.6 g/dL (6.4-8.2) Albumin 3.5 g/dL (3.4-5.0) Albumin/Globulin Ratio 1.1 (1.0-1.7) Lipase 146 U/L (73-393) Laboratory Tests 08/09/18 03:10 Laboratory Tests 08/09/18 03:10 EKG EKG [] Radiology/Procedures Radiology/Procedures [] Impressions: PROCEDURE: CT ABDOMEN PELVIS WO CONTRAST Abdominal and Pelvis CT, Without Contrast: History: Right flank and right lower quadrant pain. Comparison: None. Procedure: Axial images are obtained of the abdomen and pelvis, without IV or oral contrast. CT Abdomen without Contrast: Findings: Evaluation of solid organs is limited without contrast. Evaluation of stomach and bowel is limited without oral contrast. Liver: 2.2 cm cyst at the dome. Spleen: Normal. Pancreas: Normal. Adrenal Glands: Normal. Kidneys: There are multiple small nonobstructive stones in the left renal pelvis. There is multiple hypoattenuating lesions in the left kidney. There is no free air or free fluid. There is no lymphadenopathy. There is degenerative changes of lumbar spine with multilevel marked central and neuroforaminal stenosis. Impression: Please see CT Pelvis without Contrast. End Impression. 1. Multiple lesions in the liver could be complex cysts. Patient should have a follow-up ultrasound as an outpatient. 2. No evidence of obstructive uropathy. Findings: The appendix is normal. There is fat-containing inguinal canals bilaterally. The urinary bladder appears normal. There is no free fluid. There is no lymphadenopathy. There is no pericolonic inflammation identified. Impression: No evidence of urolithiasis or obstructive uropathy. End impression PQRS Compliance Statement: One or more of the following individualized dose reduction techniques were utilized for this examination: 1. Automated exposure control 2. Adjustment of the mA and/or kV according to patient size 3. Use of iterative reconstruction technique Course & Med Decision Making Course & Med Decision Making Pertinent Labs and Imaging studies reviewed. (See chart for details) Patient is a 73 year old male who presents for evaluation of right flank pain. Patient treated with 1L Normal Saline, Ketorolac, and Metoclopramide in the ED. Due to history of kidney stones, CT abdomen/pelvis was performed which did not reveal any signs of a stone. Patient stable for discharge with outpatient follow-up with PCP. Discussed findings and plan with patient and family, who acknowledge understanding and agreement. Dragon Disclaimer Dragon Disclaimer This electronic medical record was generated, in whole or in part, using a voice recognition dictation system. Departure Departure Impression: Primary Impression: Flank pain Disposition: HOME, SELF-CARE Condition: STABLE Referrals: JENNI BOURNE MD (PCP) HECTOR NARAYANAN MD Patient Instructions: Flank Pain, [id number]-Jdaw Scripts Orphenadrine Citrate (ORPHENADRINE CITRATE) 100 Mg Tablet.er 100 MG PO BID PRN for MUSCLE PAIN, #14 Prov: ROSA MONTELONGO DO 08/09/18 Hyoscyamine Sulfate (LEVSIN-SL) 0.125 Mg Tab.subl 1-2 TAB SL PRN Q4HRS, #20 TAB Prov: RSOA MONTELONGO DO 08/09/18 Ondansetron (ONDANSETRON ODT) 4 Mg Tab.rapdis 1 TAB PO PRN Q6-8HRS for VOMITING, #16 TAB Prov: ROSA MONTELONGO DO 08/09/18 ROSA MONTELONGO DO Aug 09, 2018 04:14
[2018-08-09 04:30] VITALS: BP 127/57
[2018-08-09] MEDS ORDERED: ORPH100T PO (04:30)
[2018-08-09] MEDS ORDERED: ONDA4TAB12 PO (04:30)
[2018-08-09] MEDS ORDERED: HYOS0.1265 SL (04:30)
== END 2018-08-09 05:00 | disposition home or self-care (01) ==
LOC: ER 02:21
DX: R10.9 Unspecified abdominal pain (principal); G89.29 Other chronic pain; M54.89 Other dorsalgia; R42 Dizziness and giddiness; R53.1 Weakness; R11.0 Nausea; I10 Essential (primary) hypertension; I25.2 Old myocardial infarction; Z87.442 Personal history of urinary calculi; Z87.891 Personal history of nicotine dependence; Z95.5 Presence of coronary angioplasty implant and graft
CPT/HCPCS: 36415; 74176; 80053; 81001; 83690; 83735; 85025; 96361; 96374; 96375; J1885; J2765; J7030; 99284-25

== ENCOUNTER 2018-08-09 05:55 | Inpatient (IN) | payer MEDICARE ==
[~2018-08-09] VITALS: Ht 171.4 cm; Wt 86.7 kg
[~2018-08-09 05:55] MED LIST changes: +HYOS0.1265 SL; +ONDA4TAB12 PO; +ORPH100T PO
--- NOTE | 2018-08-09 06:54 | PHYS DOC ---
Past Medical History Past Medical History: Hypertension, Kidney Stone, [place], Other Additional Past Medical Histor: [place](12-15 YRS AGO) Past Surgical History: Other Additional Past Surgical Histo: cardiac stents Alcohol Use: Rarely Drug Use: None Adult General Chief Complaint Chief Complaint: DIZZY/LIGHT HEADED [facility] HPI Patient is a 73 year old male who presents with lightheadedness he has had this for a week if not longer but it is getting worse he says he feels sick to his stomach sweaty sometimes just not feeling good at all no chest pain.. He was just seen in this ED a couple hours ago with rt sided back pain radiating to the front and dizziness. He was worked up for possible kidney stones and appendicitis. While he was waiting for a taxi, his lightheadedness and dizziness has gotten worse. He decided he needed to be re-evaluated and does not feel like he is safe at home. Currently, his dizziness and lightheadedness is worse. He is nauseous but has not vomited. He still has right flank pain radiating to his RLQ. He states he has chronic back pain but this new pain is different. Located more laterally and has been worse for about a week. Pt states he is weak. Denies CP, fever, chills. PMHx of cardiac stents. [] Review of Systems Review of Systems Constitutional: Denies fever or chills [] Eyes: Denies change in visual acuity, redness, or eye pain [] HENT: Denies nasal congestion or sore throat. Lightheaded [] Respiratory: Denies cough or shortness of breath [] Cardiovascular: No additional information not addressed in HPI [] GI: RLQ abdominal pain, nausea. Denies vomiting, bloody stools or diarrhea [] : Denies dysuria or hematuria [] Musculoskeletal: Back pain. Denies joint pain [] All other systems were reviewed and found to be within normal limits, except as documented in this note. Current Medications Current Medications Current Medications Medications (Trade) Dose Ordered Sig/Kaylie Start Time Stop Time Status Last Admin Dose Admin Fentanyl Citrate (Fentanyl 2ml Vial) 50 mcg 1X ONCE 08/09/18 07:00 08/09/18 07:01 DC 08/09/18 07:10 50 MCG Ondansetron HCl (Zofran) 4 mg 1X ONCE 08/09/18 07:00 08/09/18 07:01 DC 08/09/18 07:09 4 MG Sodium Chloride 1,000 ml @ 1,000 mls/hr 1X ONCE 08/09/18 07:00 08/09/18 07:59 DC 08/09/18 07:09 1,000 MLS/HR Allergies Allergies Allergies Coded Allergies Type Severity Reaction Last Updated Verified No Known Drug Allergies 03/03/14 No Physical Exam Physical Exam Constitutional: Well developed, well nourished, non-toxic appearance. [] HENT: Normocephalic, atraumatic, bilateral external ears normal, oropharynx moist, no oral exudates, nose normal. [] Eyes: PERRLA, EOMI, conjunctiva normal, no discharge. [] Neck: Normal range of motion, no tenderness, supple, no stridor. [] Cardiovascular: Bradycardia, no murmur [] Lungs & Thorax: Bilateral breath sounds clear to auscultation [] Abdomen: Bowel sounds normal, soft, no masses, no pulsatile masses. Tender in RLQ [] Skin: Warm, dry, no erythema, no rash. [] Back: No tenderness, no CVA tenderness. [] Extremities: No tenderness, no cyanosis, no clubbing, ROM intact, no edema. [] Neurologic: Alert and oriented X 3, normal motor function, normal sensory function, no focal deficits noted. [] Psychologic: Affect normal, judgement normal, mood normal. [] Current Patient Data Vital Signs Vital Signs Date Time Temp Pulse Resp B/P (MAP) Pulse Ox O2 Delivery O2 Flow Rate FiO2 08/09/18 07:10 20 08/09/18 06:04 97.9 44 125/63 (83) 98 Room Air 97.9 Lab Values Laboratory Tests Test 08/09/18 07:00 Troponin I Quantitative < 0.017 ng/mL (0.000-0.055) Lipase 173 U/L (73-393) EKG EKG [] Interpretation Time: EKG shows a bigeminy pattern rate of 86 on clinical examination his heart rate ranges between low 40s and low 50s no obvious STEMI was identified Radiology/Procedures Radiology/Procedures CXR ABDOMEN LTD Impressions: IMPRESSION: Minimal left basilar scarring or atelectasis. IMPRESSION: Limited study with obscuration of the gallbladder and pancreas by overlying bowel. Course & Med Decision Making Course & Med Decision Making Pertinent Labs and Imaging studies reviewed. (See chart for details) []73-year-old male with presenting with lightheadedness and nausea generalized weakness for the last week or so found to be in bigeminy with some intermittent periods of bradycardia on the monitor in the emergency room. He is on metoprolol perhaps that is the etiology of this. He did also have a complaining of back pain and he was worked up for this earlier today with a negative CT abdomen and pelvis essentially. Seems that his primary issue now is nausea and lightheadedness given the EKG finding and transient bradycardia and his persistent symptoms despite treatment in the emergency room and consulted with Dr. SOFÍA CRONIN for observation and hold metoprolol serial troponins etc. Dragon Disclaimer Dragon Disclaimer This electronic medical record was generated, in whole or in part, using a voice recognition dictation system. Departure Departure Impression: Primary Impression: Lightheadedness Disposition: ADMITTED INPATIENT Admitting Physician: Other Condition: STABLE Referrals: JENNI BOURNE MD (PCP) BERNARD HOLLIS MD Aug 09, 2018 06:54
[2018-08-09] MEDS ORDERED: ONDANSETRON PF 4 MG/2 ML VIAL. IV ONE (07:00)
[2018-08-09] MEDS ORDERED: fentaNYL PF VIAL 100 MCG/2 ML VIAL IV ONE (07:00)
[2018-08-09] MEDS ORDERED: IV NORMAL SALINE 1000ML BAG 1,000 ML IV ONE (07:00)
--- NOTE | 2018-08-09 07:41 | RAD ---
Portable chest, 08/09/2018: HISTORY: Shortness of breath Comparison is made to a study from 01/13/2018. The heart size and pulmonary vascularity are normal. There is minimal streaky left basilar scarring or atelectasis. The lungs are otherwise clear. No pleural fluid is evident. IMPRESSION: Minimal left basilar scarring or atelectasis. Electronically signed by: Azeem Anaya MD (08/09/2018 7:37 AM) [facility]
--- NOTE | 2018-08-09 07:42 | RAD ---
Right upper quadrant abdominal ultrasound, 08/09/2018: HISTORY: Right upper quadrant and back pain The gallbladder could not be visualized due to overlying bowel. The current CT study shows the hepatic flexure of the colon overlying the gallbladder. The patient's known hepatic cyst was not visualized sonographically. No bile duct dilatation is seen. The pancreas was obscured by overlying bowel. The right kidney is unremarkable. IMPRESSION: Limited study with obscuration of the gallbladder and pancreas by overlying bowel. Electronically signed by: Azeem Anaya MD (08/09/2018 7:39 AM) [facility]
--- NOTE | 2018-08-09 07:48 | EKG ---
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
--- NOTE | 2018-08-09 08:43 | PDOC1 ---
History and Physical Date of Admission Date of Admission DATE: 08/09/18 TIME: 08:39 Identification/Chief Complaint Chief Complaint Dizziness, bradycardia Source Source: Chart review, Patient History of Present Illness History of Present Illness Mr Hobbs is a 73yo M w/ PMHx HTN, [place], Hyperlipidemia, GERD, chronic low back pain, Osteoarthritis with intermittent episodes of epigastric pain that he described as pressure-like sensation, 7/10 severity associated with diaphoresis and nausea as well as dizziness and low back pain. He denied any orthopnea/PND, palpitations or syncope. He has been very dizzy and having low back pain as well, noted bradycardic in the 40s. He was just seen in this ED a couple hours ago with rt sided back pain radiating to the front and dizziness. He was worked up for possible kidney stones and appendicitis. While he was waiting for a taxi, his lightheadedness and dizziness has gotten worse. He decided he needed to be re-evaluated and does not feel like he is safe at home. Currently, his dizziness and lightheadedness is worse. He is nauseous but has not vomited. He still has right flank pain radiating to his RLQ. He states he has chronic back pain but this new pain is different. Located more laterally and has been worse for about a week. Pt states he is weak. Denies CP, fever, chills Past Medical History Cardiovascular: HTN, [place], Hyperlipidemia Pulmonary: No pertinent hx CENTRAL NERVOUS SYSTEM: Other GI: GERD Heme/Onc: No pertinent hx Hepatobiliary: No pertinent hx Psych: No pertinent hx Musculoskeletal: low back pain, Osteoarthritis Infectious disease: No pertinent hx Renal/: Other Endocrine: No pertinent hx Past Surgical History Past Surgical History: Tonsillectomy, Other Family History Family History: Coronary Artery Disease Social History ALCOHOL: none Drugs: None Current Problem List Problem List Problems Medical Problems: (1) Lightheadedness Status: Acute Current Medications Current Medications Current Medications Fentanyl Citrate (Fentanyl 2ml Vial) 50 mcg 1X ONCE IV Last administered on 08/09/18at 07:10; Start 08/09/18 at 07:00; Stop 08/09/18 at 07:01; Status DC Sodium Chloride 1,000 ml @ 1,000 mls/hr 1X ONCE IV Last administered on at 07:09; Start 08/09/18 at 07:00; Stop 08/09/18 at 07:59; Status DC Ondansetron HCl (Zofran) 4 mg 1X ONCE IV Last administered on 08/09/18at 07:09; Start 08/09/18 at 07:00; Stop 08/09/18 at 07:01; Status DC Active Scripts Active Orphenadrine Citrate 100 Mg Tablet.er 100 Mg PO BID PRN Levsin-Sl (Hyoscyamine Sulfate) 0.125 Mg Tab.subl 1-2 Tab SL PRN Q4HRS Ondansetron Odt (Ondansetron) 4 Mg Tab.rapdis 1 Tab PO PRN Q6-8HRS Valium (Diazepam) 5 Mg Tablet 5 Mg PO QHS PRN Protonix (Pantoprazole Sodium) 40 Mg Tablet.dr 1 Tab PO DAILY Reported NITRO-DUR 0.2mg/hr (Nitroglycerin) 1 Each Patch.td24 Hydrocodone-Apap 7.5-325 (Hydrocodone Bit/Acetaminophen) 1 Each Tablet Cyclobenzaprine Hcl 10 Mg Tablet NITROGLYCERIN SubLingual (Nitroglycerin) 0.4 Mg Tab.subl [Citracal] 2 Tbs PO DAILY Zocor (Simvastatin) 40 Mg Tablet 40 Mg PO HS Toprol Xl (Metoprolol Succinate) 25 Mg Tab.er.24h 25 Mg PO HS Aspir 81 (Aspirin) 81 Mg Tablet.dr 81 Mg PO DAILY Allergies Allergies: Coded Allergies: No Known Drug Allergies (Unverified , 03/03/14) ROS General: YES: Fatigue, Malaise; No: Chills, Night Sweats, Appetite, Other PSYCHOLOGICAL ROS: YES: Anxiety; No: Behavioral Disorder, Concentration difficultie, Decreased libido, Depression, Disorientation, Hallucinations, Hostility, Irritablity, Memory difficulties, Mood Swings, Obsessive thoughts, Physical abuse, Sexual abuse, Sleep disturbances, Suicidal ideation, Other Eyes: Yes Blurry vision, Yes Double vision; No Decreased vision, No Dry eyes, No Excessive tearing, No Eye Pain, No Itchy Eyes, No Loss of vision, No Photophobia, No Scotomata, No Uses contacts, No Uses glasses, No Other HEENT: YES: Visual Changes, Vertigo; No: Heacaches, Hearing change, Nasal congestion, Nasal discharge, Oral lesions, Sinus pain, Sore Throat, Epistaxis, Sneezing, Snoring, Tinnitus, Vocal changes, Other ALLERGY AND IMMUNOLOGY: No: Hives, Insect Bite Sensitivity, Itchy/Watery Eyes, Nasal Congestion, Post Nasal Drip, Seasonal Allergies, Other Hematological and Lymphatic: No: Bleeding Problems, Blood Clots, Blood Transfusions, Brusing, Night Sweats, Pallor, Swollen Lymph Nodes, Other ENDOCRINE: No: Breast Changes, Galactorrhea, Hair Pattern Changes, Hot Flashes , Malaise/lethargy, Mood Swings, Palpitations, Polydipsia/polyuria, Skin Changes , Temperature Intolerance, Unexpected Weight Changes, Other Breast: No New/Changing Breast Lumps, No Nipple changes, No Nipple discharge, No Other Respiratory: No: Cough, Hemoptysis, Orthopnea, Pleuritic Pain, Shortness of breath, SOB with excertion, Sputum Changes, Stridor, Tachypnea, Wheezing, Other Cardiovascular: yes Palpitations, yes Lt Headedness; No Chest Pain, No Orthopnea, No Paroxysmal Noc. Dyspnea, No Edema, No Other Gastrointestinal: Yes Nausea; No Vomiting, No Abdominal Pain, No Diarrhea, No Constipation, No Melena, No Hematochezia, No Other Genitourinary: No Dysuria, No Frequency, No Incontinence, No Hematuria, No Retention, No Discharge, No Urgency, No Pain, No Flank Pain, No Other, No , No , No , No , No , No , No Musculoskeletal: Yes Gait Disturbance; No Joint Pain, No Joint Stiffness, No Joint Swelling, No Muscle Pain, No Muscular Weakness, No Pain In:, No Swelling In:, No Other Neurological: Yes Dizziness, Yes Gait Disturbance; No Behavorial Changes, No Bowel/Bladder ControlChng, No Confusion, No Headaches, No Impaired Coord/balance, No Memory Loss, No Numbness/Tingling, No Seizures, No Speech Problems, No Tremors, No Visual Changes, No Weakness, No Other Skin: No Dry Skin, No Eczema, No Hair Changes, No Lumps, No Mole Changes, No Mottling, No Nail Changes, No Pruritus, No Rash, No Skin Lesion Changes, No Other, No Acne Physical Exam General: Alert, Oriented X3, Cooperative, No acute distress HEENT: Atraumatic, PERRLA, EOMI, Mucous membr. moist/pink Lungs: Clear to auscultation, Normal air movement Heart: S1S2, other (Constantino) Abdomen: Normal bowel sounds, Soft, No tenderness, No hepatosplenomegaly, No masses Extremities: No clubbing, No cyanosis, No edema, Normal pulses, No tenderness/ swelling Skin: No rashes, No breakdown, No significant lesion Neuro: Normal gait, Normal speech, Strength at 5/5 X4 ext, Normal tone, Sensation intact, Cranial nerves 3-12 NL, Reflexes 2+ Psych/Mental Status: Mental status NL, Mood NL Vitals Vitals Vital Signs Date Time Temp Pulse Resp B/P (MAP) Pulse Ox O2 Delivery O2 Flow Rate FiO2 08/09/18 07:10 20 08/09/18 06:04 97.9 44 125/63 (83) 98 Room Air 97.9 Labs Labs Laboratory Tests Test 08/09/18 07:00 Troponin I Quantitative < 0.017 ng/mL (0.000-0.055) Lipase 173 U/L (73-393) Laboratory Tests Test 08/09/18 07:00 Troponin I Quantitative < 0.017 ng/mL (0.000-0.055) Lipase 173 U/L (73-393) VTE Prophylaxis Ordered VTE Prophylaxis Devices: Yes VTE Pharmacological Prophylaxi: Yes Assessment/Plan Assessment/Plan A/P: Dizziness - will cont meclizine, will reattempt BPPV maneuvers, echo, cardiology consultation Arrhythmia - No associated exertional CP/HOGUE/palpitations, will consult cardiology as he is on a BB CAD - with prior stents HTN - cont meds, hold BB for bradycardia HLD - cont statin Lumbago with recent heavy lifting: hx of lumbar decompression - will cont muscle relaxants, pain meds FEN - Cardiac diet PPX - SCDs FULL CODE Inpatient for symptomatic dizziness with bradycardia, likely inpatient 2 midnights. DINAH CRAFT MD Aug 09, 2018 08:43
[2018-08-09 09:15] VITALS: BP 113/61
[2018-08-09] MEDS ORDERED: ACETAMINOPHEN 325 MG TABLET. PO PRN (11:00)
[2018-08-09] MEDS ORDERED: HYDROcodone/APAP 5/325MG 1 TAB TABLET PO PRN (11:00)
[2018-08-09] MEDS ORDERED: ONDANSETRON ODT 4 MG TAB.RAPDIS. PO PRN (11:00)
[2018-08-09] MEDS: IV 1/2 NORMAL SALINE 1,000 ML IV SCH ×2 (12:11→20:57)
[2018-08-09] MEDS: ASPIRIN ENTERIC COATED 81 MG TABLET.DR. PO SCH (12:11)
[2018-08-09] MEDS: POLYETHYLENE GLYCOL 3350 17 GM PACKET. PO SCH (12:11)
[2018-08-09] MEDS: PANTOPRAZOLE 40 MG TABLET.DR. PO SCH (12:11)
[2018-08-09] MEDS: HEPARIN for SUB-Q USE 5,000 UNIT/ML VIAL. SQ SCH ×2 (12:25→20:51)
--- NOTE | 2018-08-09 12:37 | PDOC2 ---
TERRY PUENTE LEARNING SUPPORT SERVICES DIRECTOR 08/09/18 1237: CARDIAC CONSULT DATE OF CONSULT Date of Consult DATE: 08/09/18 TIME: 12:23 REASON FOR CONSULT Reason for Consult: Symptomatic bradycardia REFERRING PHYSICIAN Referring Physician: Glenny SOURCE Source: Chart review, Patient HISTORY OF PRESENT ILLNESS HISTORY OF PRESENT ILLNESS This is a pleasant 73 yo male admitted for complains of low back pain. He took out 3 trash about 7 days ago and this was about 60 pounds each due to the water accumulation from the rain and after that his right lower back started hurting. Its still throbbing sometimes which is why he came in to ED thingking that he may have another renal stones as he has had this 2 x in the past. Before this about a week ago he has been having episodes of nausea and sometimes sensation of dizziness but at times feeling more of vertigo noting the ceiling looking at it was not steady. This is sometimes more pronounced when he gets up from sitting position. No palpitations, passing out, tunneled vision or blurred vision or frequent HAs. He has been having nausea but no vomiting. Denies any chest pain, no exertional CP, SOA nor HOGUE. No recent falls, MVA. He has not been seeing any branner machine tender as an outpt. Denies any past arrhythmias but known for CAD with toprol, zocor and ASA as home meds. No recreational drug use and no recent stimulants. PAST MEDICAL HISTORY Past Medical History Cardiovascular: HTN, NV, Hyperlipidemia Pulmonary: No pertinent hx CENTRAL NERVOUS SYSTEM: Other GI: GERD Heme/Onc: No pertinent hx Hepatobiliary: No pertinent hx Psych: No pertinent hx Musculoskeletal: low back pain, Osteoarthritis Infectious disease: No pertinent hx Renal/: left renal cyst, nephrolithiasis Endocrine: No pertinent hx PAST SURGICAL HISTORY Past Surgical History: Tonsillectomy, Other (PCI/stens; lower back surgery) FAMILY HISTORY Family History: Coronary Artery Disease SOCIAL HISTORY Smoke: No ALCOHOL: none Drugs: None Lives: with Family CURRENT MEDICATIONS CURRENT MEDICATIONS Current Medications Medications (Trade) Dose Ordered Sig/Kaylie Route PRN Reason Start Time Stop Time Status Last Admin Dose Admin Fentanyl Citrate (Fentanyl 2ml Vial) 50 mcg 1X ONCE IV 08/09/18 07:00 08/09/18 07:01 DC 08/09/18 07:10 Sodium Chloride 1,000 ml @ 1,000 mls/hr 1X ONCE IV 08/09/18 07:00 08/09/18 07:59 DC 08/09/18 07:09 Ondansetron HCl (Zofran) 4 mg 1X ONCE IV 08/09/18 07:00 08/09/18 07:01 DC 08/09/18 07:09 ALLERGIES ALLERGIES: Coded Allergies: No Known Drug Allergies (Unverified , 03/03/14) ROS Review of System 14 point ROS evaluated with pertinent positives noted per HPI PHYSICAL EXAM General: Alert, Oriented X3, Cooperative, No acute distress HEENT: Atraumatic, Mucous membr. moist/pink Lungs: Clear to auscultation, Normal air movement Heart: Regular rate (SR bigeminal PVCs), Other (2/6 systolic murmur to LLS border) Abdomen: Soft, No tenderness Extremities: No cyanosis, No edema Skin: No breakdown, No significant lesion Neuro: Normal speech, Sensation intact Psych/Mental Status: Mental status NL, Mood NL MUSCULOSKELETAL: Osteoarthritic changes both hands VITALS VITALS Vital Signs Date Time Temp Pulse Resp B/P (MAP) Pulse Ox O2 Delivery O2 Flow Rate FiO2 08/09/18 11:35 Room Air 08/09/18 09:15 97.9 44 18 113/61 (78) 95 97.9 LABS Lab: Laboratory Tests Test 08/09/18 07:00 Troponin I Quantitative < 0.017 ng/mL (0.000-0.055) Lipase 173 U/L (73-393) ECHOCARDIOGRAM ECHOCARDIOGRAM <Conclusion> The left ventricular systolic function is grossly normal. EF 55% Wall motion grossly normal. Transmitral Doppler flow pattern is Grade II-pseudonormal filling dynamics. Doppler and Color Flow revealed mild aortic regurgitation. DATE: 10/19/16 150 HEART CATH HEART CATH Conclusion 1. No significant coronary artery disease with patent previously placed stents in the right coronary artery. 2. Posterobasal wall hypokinesis with ejection fraction estimated at 55% Recommendations Medical Therapy DATE: 10/25/16 1518 ASSESSMENT/PLAN ASSESSMENT/PLAN 1. Dizziness/nausea: suspect possibly from frequent PVCs 2. Suspect BPPV 3. Arrhythmia: bigeminal PVCs, no bradycardia per tele. No associated exertional CP/HOGUE/palpitations 4. CAD; past stents 5. HTN 6. HLP 7. Lumbago with recent heavy lifting: hx of lumbar decompression Recommendations 1. TTE today. K, Mg, Trop are normal. 2. Stress test is a consideration given this new finding otherwise no ischemic symptoms. 3. MCOT and note PVC burden which is probably high and then will consider for EP referral 4. 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 September 20 2:45PM 5. Discussed plan with staff including MCOT and not to use BP monitor for HR but use manual apical. 6. Orthostatic readings 7. Continue home toprol, ASA and zocor. check TSH and lipids. ELSIE TORRES MD 08/09/18 1651: CARDIAC CONSULT ASSESSMENT/PLAN ASSESSMENT/PLAN Patient seen and examined. Agree with CALL CENTER DISPATCHER's assessment and plan. 2-D echo showed LVEF 50-55% CAD status clinically stable Agree with event monitor as an outpatient to assess PVC burden Thank you for your consultation TERRY PUENTE APRN Aug 09, 2018 12:37 ELSIE TORRES MD Aug 09, 2018 16:51
--- NOTE | 2018-08-09 14:21 | CARD ---
MR#: [id number] Date of Study: 08/09/2018 Ordering Physician: TERRY PUENTE, Referring Physician: DINAH CRAFT, Tech: Smita Stewart ALVAREZ APPROVED REPORT EXAM: Two-dimensional and M-mode echocardiogram with Doppler and color Doppler. Other Information Quality : AverageHR: 70bpm Rhythm : Other INDICATION CAD 2D DIMENSIONS RVDd3.5 (2.9-3.5cm)Left Atrium(2D)4.6 (1.6-4.0cm) IVSd1.5 (0.7-1.1cm)Aortic Root(2D)3.7 (2.0-3.7cm) LVDd4.6 (3.9-5.9cm)LVOT Diameter2.0 (1.8-2.4cm) PWd0.6 (0.7-1.1cm)IVSs1.6 (0.8-1.2cm) LVDs3.4 (2.5-4.0cm)FS (%) 27.3 % PWs1.7 (0.8-1.2cm)SV52.2 ml LVEF(%)53.2 (>50%) M-Mode DIMENSIONS Left Atrium(MM)4.60 (2.5-4.0cm)Aortic Root3.70 (2.2-3.7cm) Aortic Valve AoV Peak Kong.139.3cm/sAoV VTI25.6cm AO Peak GR.7.8mmHgLVOT Peak Kong.97.8cm/s LVOT VTI 21.94cmAO Mean GR.4mmHg MANOJ (VMAX)1.48qy1MKF (VTI)2.60cm2 AI P 1/2 Yzjm560io Mitral Valve MV E Pgvszwdi18.4cm/sMV E Peak Gr.85mmHg MV DECEL FRZV884gkLT A Uvtlklnn71.1cm/s MV JKI81ahR/A Ratio1.4 MVA (PHT)3.74cm2 TDI E/Lateral E'10.6E/Medial E'11.1 Pulmonary Valve PV Peak Uhinjyzz225.8cm/sPV Peak Grad.4mmHg Tricuspid Valve TR P. Cfpzjeeh036bo/sRAP MKFVMWWA5glIo TR Peak Gr.49zwMiSUTG81opCr LEFT VENTRICLE The left ventricle is normal size. Proximal septal thickening is noted. Left ventricle systolic funct ion is normal. The Ejection Fraction is 50-55%. There is normal LV segmental wall motion. Transmitral Doppler flow pattern is abnormal. RIGHT VENTRICLE The right ventricle is normal size. There is normal right ventricular wall thickness. The right ventr icular systolic function is normal. ATRIA The left atrium is mildly dilated. The right atrium size is normal. The interatrial septum is intact with no evidence for an atrial septal defect or patent foramen ovale as noted on 2-D or Doppler imagi ng. AORTIC VALVE The aortic valve is normal in structure and function. The aortic valve is trileaflet. Doppler and Col or Flow revealed mild aortic regurgitation. There is no significant aortic valvular stenosis. MITRAL VALVE The mitral valve is normal in structure and function. There is no evidence of mitral valve prolapse. There is no mitral valve stenosis. Doppler and Color-flow revealed mild to moderate mitral regurgitat ion. TRICUSPID VALVE The tricuspid valve is normal in structure and function. Doppler and Color Flow revealed trace tricus pid regurgitation. The PA pressure was estimated at 26 mmHg. There is no tricuspid valve prolapse or vegetation. There is no tricuspid valve stenosis. PULMONIC VALVE The pulmonic valve is not well visualized. GREAT VESSELS The aortic root is mildly enlarged. The ascending aorta is normal in size. The IVC is normal in size and collapses >50% with inspiration. PERICARDIAL EFFUSION There is no evidence of significant pericardial effusion. Critical Notification Critical Value: No <Conclusion> The left ventricle is normal size. Left ventricle systolic function is normal. The Ejection Fraction is 50-55%. There is no significant aortic valvular stenosis. Doppler and Color Flow revealed mild aortic regurgitation. Doppler and Color-flow revealed mild to moderate mitral regurgitation. Doppler and Color Flow revealed trace tricuspid regurgitation. The PA pressure was estimated at 26 mmHg. Signed by : Ole Wood MD Electronically Approved : 08/09/2018 14:21:12
[2018-08-09 15:01] VITALS: BP_SYST 103; BP_SYST 111; BP_DIAS 70; BP_DIAS 76
[2018-08-09 15:02] VITALS: BP 112/67
[2018-08-09] MEDS ORDERED: CYCLOBENZAPRINE 10 MG TABLET. PO PRN (15:45)
[2018-08-09] MEDS ORDERED: NITROGLYCERIN SUBLINGUAL 0.4 MG BOTTLE OF 25. SL PRN (15:45)
--- NOTE | 2018-08-09 16:53 | NUR ---
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 Patient stated "this is bullshit, the doctor downstairs told me I would get to leave this evening." Patient also stated that he has had an ear infection in right ear, which has been draining, for approximately one week now. This RN asked if he has seen a doctor for this and patient denied seeing an physician. This RN paged Dr. Murrieta and explained the situation, Dr. Murrieta stated he would be able to discharge the patient first thing in the morning after addressing his ear infection, if he stays tonight. This RN also notified Dr. Murrieta that the patient stated that this auction starts at 10am. This RN then explained to the patient what the doctor recommends, and patient stated "I didn't mean to piss anyone off and I'm not mad at him, but yes I will stay." Will continue to monitor.
[2018-08-09 19:55] VITALS: BP 134/67
[2018-08-09] MEDS: ONDANSETRON PF 4 MG/2 ML VIAL. IV PRN (20:44)
[2018-08-09] MEDS: SENNOSIDES/DOCUSATE 8.6/50MG TABLET. PO SCH (20:45)
[2018-08-09] MEDS ORDERED: METOPROLOL SUCC 24HR ER 25 MG TAB.ER.24H. PO SCH (21:00)
[2018-08-09] MEDS ORDERED: PSYLLIUM HUSK (SUGAR FREE) 1 PKT PACKET PO SCH (21:00)
[2018-08-09] MEDS ORDERED: BISACODYL 10 MG SUPP.RECT. PR ONE (21:00)
[2018-08-09] MEDS ORDERED: SIMVASTATIN 40 MG TABLET. PO SCH (21:00)
[2018-08-09 23:21] VITALS: BP 102/41
[2018-08-10 03:31] VITALS: BP 128/75
[2018-08-10] MEDS: ONDANSETRON PF 4 MG/2 ML VIAL. IV PRN (06:13)
[2018-08-10] MEDS: HEPARIN for SUB-Q USE 5,000 UNIT/ML VIAL. SQ SCH (06:17)
[2018-08-10 07:15] VITALS: BP 100/62
[2018-08-10] MEDS: PANTOPRAZOLE 40 MG TABLET.DR. PO SCH (08:26)
[2018-08-10] MEDS: SENNOSIDES/DOCUSATE 8.6/50MG TABLET. PO SCH (08:26)
[2018-08-10] MEDS: ASPIRIN ENTERIC COATED 81 MG TABLET.DR. PO SCH (08:26)
[2018-08-10] MEDS: POLYETHYLENE GLYCOL 3350 17 GM PACKET. PO SCH (08:32)
[2018-08-10 08:58] LABS: BASO % 0 % (0-3); EOS % 1 % (0-3); LYMPH % 18 % (24-48); MEAN CORPUSCULAR HEMOGLOBIN 30 pg (25-35); MEAN CORPUSCULAR HGB CONC 34 g/dL (31-37); MEAN CORPUSCULAR VOLUME 89 fL (79-100); MONO # 0.5 x10^3/uL (0.0-1.1); MONO % 9 % (0-9); NEUT % 72 % (31-73); PLATELET COUNT 105 x10^3/uL (140-400); RED CELL DISTRIBUTION WIDTH 14.7 % (11.5-14.5); WHITE BLOOD COUNT 5.5 x10^3/uL (4.0-11.0)
[2018-08-10] MEDS ORDERED: SODIUM PHOSPHATES 19/7GM 133 ML ENEMA. PR PRN (09:15)
[2018-08-10 09:16] LABS: CALCIUM 8.1 mg/dL (8.5-10.1); GFR 72.8
--- NOTE | 2018-08-10 10:37 | NUR ---
Pt discharged to home per his request. Pt very upset that his tests were normal. Dr Dozier spent time with pt and asked if there was anything that could be done and the pt said no. He has immediate appointment with Dr Gan. Cardiology recommended heart monitor as outpt and follow up but pt also declined. Information given to pt for cardiology follow up if he chooses.
--- NOTE | 2018-08-10 10:48 | PDOC ---
CARDIO Progress Notes Date and Time Date of Service 08/10/2018 Time of Evaluation 1020 Subjective Subjective: No Chest Pain, No shortness of breath, No Palpitations Vitals Vitals Vital Signs Date Time Temp Pulse Resp B/P (MAP) Pulse Ox O2 Delivery O2 Flow Rate FiO2 08/10/18 07:15 98.2 51 18 100/62 (75) 95 Room Air 98.2 Weight Weight [ ] Input and Output Intake and Output Intake and Output 08/10/18 07:00 Intake Total 1120 ml Output Total 250 ml Balance 870 ml Intake Oral 1120 ml Output Urine Total 250 ml # Voids 3 Laboratory Labs Laboratory Tests Test 08/10/18 08:40 White Blood Count 5.5 x10^3/uL (4.0-11.0) Red Blood Count 4.60 x10^6/uL (4.30-5.70) Hemoglobin 14.0 g/dL (13.0-17.5) Hematocrit 41.0 % (39.0-53.0) Mean Corpuscular Volume 89 fL (79-100) Mean Corpuscular Hemoglobin 30 pg (25-35) Mean Corpuscular Hemoglobin Concent 34 g/dL (31-37) Red Cell Distribution Width 14.7 % (11.5-14.5) Platelet Count 105 x10^3/uL (140-400) Neutrophils (%) (Auto) 72 % (31-73) Lymphocytes (%) (Auto) 18 % (24-48) Monocytes (%) (Auto) 9 % (0-9) Eosinophils (%) (Auto) 1 % (0-3) Basophils (%) (Auto) 0 % (0-3) Neutrophils # (Auto) 4.0 x10^3uL (1.8-7.7) Lymphocytes # (Auto) 1.0 x10^3/uL (1.0-4.8) Monocytes # (Auto) 0.5 x10^3/uL (0.0-1.1) Eosinophils # (Auto) 0.0 x10^3/uL (0.0-0.7) Basophils # (Auto) 0.0 x10^3/uL (0.0-0.2) Sodium Level 140 mmol/L (136-145) Potassium Level 4.0 mmol/L (3.5-5.1) Chloride Level 105 mmol/L (98-107) Carbon Dioxide Level 26 mmol/L (21-32) Anion Gap 9 (6-14) Blood Urea Nitrogen 11 mg/dL (8-26) Creatinine 1.0 mg/dL (0.7-1.3) Estimated GFR (Cockcroft-Gault) 72.8 Glucose Level 127 mg/dL (70-99) Calcium Level 8.1 mg/dL (8.5-10.1) Physical Exam HEENT: Neck Supple W Full Motion Chest: Symmetric LUNGS: Clear to Auscultation Heart: S1S2, RRR (SR with bigeminal PVC), other (Constantino) Abdomen: Soft N/T Extremities: No Calf Tenderness Neurology: alert, oriented, follow commands Assessment Assessment 1. Dizziness/nausea: suspect possibly from frequent PVCs. EF and WM nml. neg for orthostasis 2. Suspect BPPV 3. Arrhythmia: bigeminal PVCs, no bradycardia per tele. No associated exertional CP/HOGUE/palpitations/syncope 4. CAD; past stents 5. HTN: controlled 6. HLP 7. Lumbago with recent heavy lifting: hx of lumbar decompression. pain better Recommendations 1. Pt wants to f/u with outpt PCP first before following up with cardiology as an oupt. does not want to proceed with MCOT at this time 2. Discussed arrhythmia, pathophysiology and potential risks but at this time is not interested in following up with cardiology. 3. Continue with current toprol, ASA and zocor. 4. May DC. Provided with cardiology contact and encouraged to f/u TERRY PUENTE APRN Aug 10, 2018 10:48
[2018-08-10 11:13] LABS: CHOLESTEROL/HDL RATIO 2.5
--- NOTE | 2018-08-10 11:23 | PDOC ---
PROGRESS NOTES Chief Complaint Chief Complaint dizziness, bradycardia History of Present Illness History of Present Illness Patient sitting in chair looking out window. He asked for an enema to administer to himself. He reports a history of ear problems for the last 20 years and has a scheduled appointment with his PCP today that he would like to attend, requesting to go home today. Vitals Vitals Vital Signs Date Time Temp Pulse Resp B/P (MAP) Pulse Ox O2 Delivery O2 Flow Rate FiO2 08/10/18 07:15 98.2 51 18 100/62 (75) 95 Room Air 98.2 Physical Exam General: Alert, Oriented X3, Cooperative, No acute distress Heart: Regular rate (SR bigeminal PVCs), Other (2/6 systolic murmur to LLS border) Lungs: Clear, Other (no respiratory distress, symmetric chest expansion) Abdomen: Normal bowel sounds, Soft, No tenderness, No hepatosplenomegaly, No masses Extremities: No clubbing, No cyanosis, No edema, Normal pulses, No tenderness/ swelling Skin: No rashes, No breakdown, No significant lesion Labs LABS Laboratory Tests Test 08/10/18 08:40 White Blood Count 5.5 x10^3/uL (4.0-11.0) Red Blood Count 4.60 x10^6/uL (4.30-5.70) Hemoglobin 14.0 g/dL (13.0-17.5) Hematocrit 41.0 % (39.0-53.0) Mean Corpuscular Volume 89 fL (79-100) Mean Corpuscular Hemoglobin 30 pg (25-35) Mean Corpuscular Hemoglobin Concent 34 g/dL (31-37) Red Cell Distribution Width 14.7 % (11.5-14.5) Platelet Count 105 x10^3/uL (140-400) Neutrophils (%) (Auto) 72 % (31-73) Lymphocytes (%) (Auto) 18 % (24-48) Monocytes (%) (Auto) 9 % (0-9) Eosinophils (%) (Auto) 1 % (0-3) Basophils (%) (Auto) 0 % (0-3) Neutrophils # (Auto) 4.0 x10^3uL (1.8-7.7) Lymphocytes # (Auto) 1.0 x10^3/uL (1.0-4.8) Monocytes # (Auto) 0.5 x10^3/uL (0.0-1.1) Eosinophils # (Auto) 0.0 x10^3/uL (0.0-0.7) Basophils # (Auto) 0.0 x10^3/uL (0.0-0.2) Sodium Level 140 mmol/L (136-145) Potassium Level 4.0 mmol/L (3.5-5.1) Chloride Level 105 mmol/L (98-107) Carbon Dioxide Level 26 mmol/L (21-32) Anion Gap 9 (6-14) Blood Urea Nitrogen 11 mg/dL (8-26) Creatinine 1.0 mg/dL (0.7-1.3) Estimated GFR (Cockcroft-Gault) 72.8 Glucose Level 127 mg/dL (70-99) Calcium Level 8.1 mg/dL (8.5-10.1) Review of Systems Review of Systems as per above Assessment and Plan Assessmemt and Plan Problems Medical Problems: (1) Lightheadedness Status: Acute Assessment: ?BPPV Frequent PVCs Hypertension Hyperlipidemia CAD with history of SC and stents GERD Chronic Low Back Pain Constipation Plan: Cardiology recommends outpatient event monitoring for assessment of PVC burden, patient is refusing at this time Hold BB for bradycardia Enema for constipation TSH 1.453 Patient requesting to be discharged to home today Follow up with PCP - scheduled appointment for today Comment Review of Relevant I have reviewed the following items jensen (where applicable) has been applied. Labs Laboratory Tests Test 08/09/18 07:00 08/10/18 08:40 Troponin I Quantitative < 0.017 ng/mL (0.000-0.055) Lipase 173 U/L (73-393) Thyroid Stimulating Hormone (TSH) 1.453 uIU/mL (0.358-3.74) White Blood Count 5.5 x10^3/uL (4.0-11.0) Red Blood Count 4.60 x10^6/uL (4.30-5.70) Hemoglobin 14.0 g/dL (13.0-17.5) Hematocrit 41.0 % (39.0-53.0) Mean Corpuscular Volume 89 fL (79-100) Mean Corpuscular Hemoglobin 30 pg (25-35) Mean Corpuscular Hemoglobin Concent 34 g/dL (31-37) Red Cell Distribution Width 14.7 % (11.5-14.5) Platelet Count 105 x10^3/uL (140-400) Neutrophils (%) (Auto) 72 % (31-73) Lymphocytes (%) (Auto) 18 % (24-48) Monocytes (%) (Auto) 9 % (0-9) Eosinophils (%) (Auto) 1 % (0-3) Basophils (%) (Auto) 0 % (0-3) Neutrophils # (Auto) 4.0 x10^3uL (1.8-7.7) Lymphocytes # (Auto) 1.0 x10^3/uL (1.0-4.8) Monocytes # (Auto) 0.5 x10^3/uL (0.0-1.1) Eosinophils # (Auto) 0.0 x10^3/uL (0.0-0.7) Basophils # (Auto) 0.0 x10^3/uL (0.0-0.2) Sodium Level 140 mmol/L (136-145) Potassium Level 4.0 mmol/L (3.5-5.1) Chloride Level 105 mmol/L (98-107) Carbon Dioxide Level 26 mmol/L (21-32) Anion Gap 9 (6-14) Blood Urea Nitrogen 11 mg/dL (8-26) Creatinine 1.0 mg/dL (0.7-1.3) Estimated GFR (Cockcroft-Gault) 72.8 Glucose Level 127 mg/dL (70-99) Calcium Level 8.1 mg/dL (8.5-10.1) Laboratory Tests Test 08/10/18 08:40 White Blood Count 5.5 x10^3/uL (4.0-11.0) Red Blood Count 4.60 x10^6/uL (4.30-5.70) Hemoglobin 14.0 g/dL (13.0-17.5) Hematocrit 41.0 % (39.0-53.0) Mean Corpuscular Volume 89 fL (79-100) Mean Corpuscular Hemoglobin 30 pg (25-35) Mean Corpuscular Hemoglobin Concent 34 g/dL (31-37) Red Cell Distribution Width 14.7 % (11.5-14.5) Platelet Count 105 x10^3/uL (140-400) Neutrophils (%) (Auto) 72 % (31-73) Lymphocytes (%) (Auto) 18 % (24-48) Monocytes (%) (Auto) 9 % (0-9) Eosinophils (%) (Auto) 1 % (0-3) Basophils (%) (Auto) 0 % (0-3) Neutrophils # (Auto) 4.0 x10^3uL (1.8-7.7) Lymphocytes # (Auto) 1.0 x10^3/uL (1.0-4.8) Monocytes # (Auto) 0.5 x10^3/uL (0.0-1.1) Eosinophils # (Auto) 0.0 x10^3/uL (0.0-0.7) Basophils # (Auto) 0.0 x10^3/uL (0.0-0.2) Sodium Level 140 mmol/L (136-145) Potassium Level 4.0 mmol/L (3.5-5.1) Chloride Level 105 mmol/L (98-107) Carbon Dioxide Level 26 mmol/L (21-32) Anion Gap 9 (6-14) Blood Urea Nitrogen 11 mg/dL (8-26) Creatinine 1.0 mg/dL (0.7-1.3) Estimated GFR (Cockcroft-Gault) 72.8 Glucose Level 127 mg/dL (70-99) Calcium Level 8.1 mg/dL (8.5-10.1) Medications Current Medications Fentanyl Citrate (Fentanyl 2ml Vial) 50 mcg 1X ONCE IV Last administered on 08/09/18at 07:10; Start 08/09/18 at 07:00; Stop 08/09/18 at 07:01; Status DC Sodium Chloride 1,000 ml @ 1,000 mls/hr 1X ONCE IV Last administered on at 07:09; Start 08/09/18 at 07:00; Stop 08/09/18 at 07:59; Status DC Ondansetron HCl (Zofran) 4 mg 1X ONCE IV Last administered on 08/09/18at 07:09; Start 08/09/18 at 07:00; Stop 08/09/18 at 07:01; Status DC Sodium Chloride 1,000 ml @ 100 mls/hr Q10H IV Last administered on 08/09/18 12 :11; Start 08/09/18 at 10:57 Ondansetron HCl (Zofran) 4 mg PRN Q6HRS PRN IV NAUSEA/VOMITING Last administered on 08/10/18 06:13; Start 08/09/18 at 11:00 Acetaminophen/ Hydrocodone Bitart (Lortab 5/325) 1 tab PRN Q4HRS PRN PO MILD PAIN; Start 08/09/18 at 11:00 Acetaminophen (Tylenol) 650 mg PRN Q6HRS PRN PO Headaches, Temp > 101.5F; Start 08/09/18 at 11:00 Senna/Docusate Sodium (Senna Plus) 1 tab BID PO Last administered on 08/10/18 08:26; Start 08/09/18 at 21:00 Heparin Sodium (Porcine) (Heparin Sodium) 5,000 unit Q8HRS SQ Last administered on 08/10/18 06:17; Start 08/09/18 at 12:00 Aspirin (Ecotrin) 81 mg DAILY PO Last administered on 08/10/18 08:26; Start 08/09/18 at 12:00 Ondansetron HCl (Zofran Odt) 4 mg PRN Q6HRS PRN PO nausea; Start 08/09/18 at 11: 00 Pantoprazole Sodium (Protonix) 40 mg DAILYAC PO Last administered on 08/10/18 08:26; Start 08/09/18 at 11:30 Polyethylene Glycol (miraLAX PACKET) 17 gm DAILY PO Last administered on 08:32; Start 08/09/18 at 12:00 Psyllium Hydrophilic Mucilloid (Metamucil Fiber Packet) 1 pkt QHS PO Last administered on 08/09/18 20:43; Start 08/09/18 at 21:00 Cyclobenzaprine HCl (Flexeril) 10 mg PRN TID PRN PO muscle spasm; Start at 15:45 Metoprolol Succinate (Toprol Xl) 25 mg HS PO Last administered on 08/09/18 20: 45; Start 08/09/18 at 21:00 Nitroglycerin (Nitrostat) 0.4 mg PRN Q5MIN PRN SL chest pain; Start 08/09/18 at 15:45 Bisacodyl (Dulcolax Supp) 10 mg 1X ONCE [place] Last administered on 08/09/18at 20:44 ; Start 08/09/18 at 21:00; Stop 08/09/18 at 21:01; Status DC Simvastatin (Zocor) 40 mg QHS PO Last administered on 08/09/18at 20:45; Start 08/09/18 at 21:00 Sodium Monofluorophosphate (Fleet Adult) 133 ml PRN DAILY PRN [place] CONSTIPATION; Start 08/10/18 at 09:15 Active Scripts Active Orphenadrine Citrate 100 Mg Tablet.er 100 Mg PO BID PRN Levsin-Sl (Hyoscyamine Sulfate) 0.125 Mg Tab.subl 1-2 Tab SL PRN Q4HRS Ondansetron Odt (Ondansetron) 4 Mg Tab.rapdis 1 Tab PO PRN Q6-8HRS Valium (Diazepam) 5 Mg Tablet 5 Mg PO QHS PRN Protonix (Pantoprazole Sodium) 40 Mg Tablet.dr 1 Tab PO DAILY Reported NITRO-DUR 0.2mg/hr (Nitroglycerin) 1 Each Patch.td24 Hydrocodone-Apap 7.5-325 (Hydrocodone Bit/Acetaminophen) 1 Each Tablet Cyclobenzaprine Hcl 10 Mg Tablet NITROGLYCERIN SubLingual (Nitroglycerin) 0.4 Mg Tab.subl [Citracal] 2 Tbs PO DAILY Zocor (Simvastatin) 40 Mg Tablet 40 Mg PO HS Toprol Xl (Metoprolol Succinate) 25 Mg Tab.er.24h 25 Mg PO HS Aspir 81 (Aspirin) 81 Mg Tablet.dr 81 Mg PO DAILY Vitals/I & O Vital Sign - Last 24 Hours 08/09/18 08/09/18 08/09/18 08/09/18 11:35 15:01 15:01 15:02 Temp 98.2 98.2 Pulse 72 77 78 Resp 16 B/P (MAP) 103/76 (85) 111/70 (84) 112/67 (82) Pulse Ox 95 O2 Delivery Room Air Room Air 08/09/18 08/09/18 08/09/18 08/09/18 19:55 20:00 20:45 23:21 Temp 97.6 98.0 97.6 98.0 Pulse 80 80 41 Resp 20 18 B/P (MAP) 134/67 (89) 134/67 102/41 (61) Pulse Ox 93 92 O2 Delivery Room Air Room Air Room Air 08/10/18 08/10/18 03:31 07:15 Temp 97.9 98.2 97.9 98.2 Pulse 77 51 Resp 20 18 B/P (MAP) 128/75 (92) 100/62 (75) Pulse Ox 95 95 O2 Delivery Room Air Intake and Output 08/09/18 08/09/18 08/10/18 15:00 23:00 07:00 Intake Total 240 ml 640 ml 240 ml Output Total 250 ml Balance 240 ml 390 ml 240 ml TITO DESAI III DO Aug 10, 2018 11:23
--- NOTE | 2018-08-10 14:16 | DS ---
DATE OF DISCHARGE: 08/10/2018 ADMITTING DIAGNOSES: 1. Lightheadedness and near syncope. 2. Bradycardia. 3. History of coronary artery disease. 4. Hypertension. 5. Hyperlipidemia. DISCHARGE DIAGNOSIS: 1. Resolving vertigo. 2. Resolving bradycardia. CONSULTS: Cardiology. PROCEDURES: None. HOSPITAL COURSE: The patient is a pleasant elderly male who presented with some vertigo. He had some various pains. It was kind of hard to get a clear story out of him. He was actually being discharged from the ER when he suddenly began to have some dizziness. He was admitted. We consulted Cardiology. He does have some PVCs and they would like to have him wear a precision assembler bench, but he refuses to do that. States he just wants to go home and see Dr. Gan, his primary care doctor. I spent quite a bit of time with him this morning. His heart tones were normal. His lungs were clear. He is up walking and pleasant, but refuses to stay. We plan to discharge with close outpatient followup. I discussed the case at length with Cardiology and his nurse. DISPOSITION: Home. ACTIVITY: As tolerated. DIET: Low sodium. MEDICATIONS: Please see the MRAD. TOTAL TIME: 33 minutes. TITO DESAI DO DR: JENN/kennedy JOB#: [id number] / [id number]
== END 2018-08-10 10:38 | disposition home or self-care (01) | DRG 309 ==
LOC: ER 05:55 → 6 SOUTH 06:00 → OBSVTOIN 08:50
PROVIDERS: ADMIT Internal Medicine; ATTEND Internal Medicine
DX: I49.3 Ventricular premature depolarization (principal); J98.11 Atelectasis; R42 Dizziness and giddiness; K21.9 Gastro-esophageal reflux disease without esophagitis; I10 Essential (primary) hypertension; G89.29 Other chronic pain; E78.5 Hyperlipidemia, unspecified; R11.0 Nausea; M54.5 Low back pain; R61 Generalized hyperhidrosis; R10.13 Epigastric pain; Z82.49 Family history of ischemic heart disease and other diseases of the circulatory system; I25.10 Atherosclerotic heart disease of native coronary artery without angina pectoris; I25.2 Old myocardial infarction; Z95.5 Presence of coronary angioplasty implant and graft; Z87.442 Personal history of urinary calculi; K59.00 Constipation, unspecified
CPT/HCPCS: 36415; 71045; 74176; 76705; 80048; 80053; 80061; 81001; 83690; 83735; 84443; 84484; 85025; 93005; 93306; 96374; G0378; G0379; J1644; J1885; J2405; J2765; J3010; J7030; 99285-25

== ENCOUNTER → 2018-09-08 | Day surgery (SDC) | payer MEDICARE ==
[~2018-09-08] MED LIST changes: +AMIO200T4 PO; +HYDR-2761 PO; +IV RINGERS,LACTATED 1000ML 1,000 ML IV SCH; +LEVO500T59 PO; +LIDOCAINE 1% PF 2 ML VIAL. ID PRN; +LIDOCAINE 2% PF 5 ML VIAL. ONE; +MECL12.52 PO; +METO25TA4 PO; +MIDAZOLAM HCL/PF 2 MG/2 ML VIAL. IV PRN; +POLY17PO28 PO; +PROPOFOL 40 ML IV ONE; +fentaNYL PF VIAL 100 MCG/2 ML VIAL IV PRN
[2018-09-08 09:18] VITALS: BP 114/77
--- NOTE | 2018-09-11 16:06 | PATHOLOGY ---
[facility] Accession Number: [id number] . 01 Material submitted: . PART A: colon - SIGMOID COLON POLYP. Modifiers: sigmoid PART B: colon - ASCENDING COLON POLYP BIOPSIES. Modifiers: ascending . 01 Clinical history: . Abdominal pain . 02 Diagnosis: A. Colon biopsies, sigmoid colon polyp: - Tubular adenoma. . B. Colon biopsies, ascending colon polyps: - Tubular adenomas. (JPM:festus; 09/11/2018) QMS/09/11/2018 . 02 Comment: There is no high-grade dysplasia or evidence of malignancy. . 02 Electronically signed: . Mati Andrade MD, Pathologist NPI- [id number] . 01 Gross description: . A. Received in formalin labeled "Faby, Demetrio, sigmoid colon polyp," are 3 segments of chi soft tissue measuring 0.9 x 0.7 x 0.3 cm in aggregate dimensions and ranging from 0.3 to 0.4 cm in maximum dimension. The specimen is submitted entirely in cassette A1. . B. Received in formalin labeled "Faby, Demetrio, ascending colon polyp BX's," are 4 segments of chi soft tissue measuring 0.9 x 0.5 x 0.4 cm in aggregate dimensions and ranging from 0.3 to 0.4 cm in maximum dimension. The specimen is submitted entirely in cassette B1. (TSD; 09/08/2018) TOB/TOB . 02 Pathologist provided ICD-10: D12.5, D12.2 . 02 CPT . 350308, 852817 Specimen Comment: A courtesy copy of this report has been sent to Specimen Comment: [phone], . Specimen Comment: Report sent to / DR BOURNE Performed at: 01 [facility] [address], [place], [place] [id number] MD Julian Colon MD Phone: [phone] Performed at: 02 [facility] [address] [place], [place] [id number] MD Mati Andrade MD Phone: [phone]
== END | disposition home or self-care (01) ==
LOC: SURG 07:03
PROVIDERS: ATTEND Internal Medicine Gastroenterology
DX: D12.5 Benign neoplasm of sigmoid colon (principal); D12.2 Benign neoplasm of ascending colon; K57.30 Diverticulosis of large intestine without perforation or abscess without bleeding; K64.0 First degree hemorrhoids; K29.50 Unspecified chronic gastritis without bleeding; M19.90 Unspecified osteoarthritis, unspecified site; Z87.891 Personal history of nicotine dependence; Z79.82 Long term (current) use of aspirin; Z79.899 Other long term (current) drug therapy; Z95.5 Presence of coronary angioplasty implant and graft; Z98.890 Other specified postprocedural states
CPT/HCPCS: 43235; 45380; 45385; J2001; J2704; 88305

== ENCOUNTER 2018-09-11 09:46 | Inpatient (IN) | payer MEDICARE ==
[~2018-09-11] VITALS: Ht 171.4 cm; Wt 79.6 kg
[~2018-09-11 09:46] MED LIST changes: -AMIO200T4 PO; -HYDR-2761 PO; -IV RINGERS,LACTATED 1000ML 1,000 ML IV SCH; -LEVO500T59 PO; -LIDOCAINE 1% PF 2 ML VIAL. ID PRN; -LIDOCAINE 2% PF 5 ML VIAL. ONE; -MECL12.52 PO; -METO25TA4 PO; -MIDAZOLAM HCL/PF 2 MG/2 ML VIAL. IV PRN; -POLY17PO28 PO; -PROPOFOL 40 ML IV ONE; -fentaNYL PF VIAL 100 MCG/2 ML VIAL IV PRN
[2018-09-11] MEDS ORDERED: ADENOSINE 6 MG/2 ML VIAL. IV ONE ×3 (10:13→10:15)
[2018-09-11] MEDS ORDERED: IV NORMAL SALINE 1000ML BAG 1,000 ML IV SCH (10:13)
[2018-09-11 10:23] LABS: CREATININE ISTAT 0.8 mg/dL (0.5-1.4); ION CA ISTAT 1.12 mmol/L (1.13-1.32); POTASSIUM ISTAT 3.7 mmol/L (3.5-5.0)
[2018-09-11 10:34] LABS: BASO % 0 % (0-3); EOS # 0.1 x10^3/uL (0.0-0.7); EOS % 1 % (0-3); HEMATOCRIT 46.5 % (39.0-53.0); HEMOGLOBIN 15.9 g/dL (13.0-17.5); LYMPH % 15 % (24-48); MEAN CORPUSCULAR HEMOGLOBIN 31 pg (25-35); MEAN CORPUSCULAR HGB CONC 34 g/dL (31-37); MEAN CORPUSCULAR VOLUME 89 fL (79-100); MONO # 0.7 x10^3/uL (0.0-1.1); MONO % 10 % (0-9); NEUT # 5.1 x10^3uL (1.8-7.7); NEUT % 74 % (31-73); PLATELET COUNT 133 x10^3/uL (140-400); RED BLOOD COUNT 5.21 x10^6/uL (4.30-5.70); RED CELL DISTRIBUTION WIDTH 14.9 % (11.5-14.5)
[2018-09-11 10:41] LABS: CALCIUM 9.2 mg/dL (8.5-10.1); GFR 72.8; POTASSIUM 3.2 mmol/L (3.5-5.1)
[2018-09-11] MEDS ORDERED: ONDANSETRON PF 4 MG/2 ML VIAL. IV ONE (10:45)
[2018-09-11] MEDS ORDERED: ONDANSETRON PF 4 MG/2 ML VIAL. ONE (10:46)
[2018-09-11 10:47] LABS: ALBUMIN 4.1 g/dL (3.4-5.0); ALBUMIN/GLOBULIN RATIO 1.2 (1.0-1.7); MAGNESIUM 2.1 mg/dL (1.8-2.4); TOTAL BILIRUBIN 1.2 mg/dL (0.2-1.0); TOTAL PROTEIN 7.5 g/dL (6.4-8.2)
--- NOTE | 2018-09-11 11:00 | RAD ---
PORTABLE CHEST 1V Clinical indications: Dizziness and chest pain since yesterday. COMPARISON: November 2016. August 09, 2018. Findings: Mild blunting of the left lateral costophrenic angle is seen consistent with a small left-sided pleural effusion with is unchanged. No right-sided pleural effusion is seen. There is mild scarring of the left midlung zone which is stable. No new lung consolidation or pulmonary edema is seen. No pneumothorax is seen. The heart size, pulmonary vasculature, mediastinum and both spike are stable. Impression: Stable small left sided pleural effusion. No new lung infiltrate. Electronically signed by: Wing Rhoades MD (09/11/2018 10:57 AM) [id number]
[2018-09-11 11:01] LABS: BILIRUBIN,URINE NEGATIVE (NEG); CLARITY,URINE CLEAR; COLOR,URINE YELLOW; NITRITE,URINE NEGATIVE (NEG); PROTEIN,URINE NEGATIVE (NEG-TRACE); UROBILINOGEN,URINE 0.2 mg/dL (0.2 mg/dL)
[2018-09-11 11:08] LABS: BACTERIA,URINE 0 /HPF (0-FEW); RBC,URINE 0 /HPF (0-2); WBC,URINE OCC /HPF (0-4)
[2018-09-11] MEDS ORDERED: POTASSIUM CHLORIDE 20 MEQ TABLET.ER. PO ONE (11:15)
--- NOTE | 2018-09-11 11:20 | PHYS DOC ---
Past Medical History Past Medical History: Hypertension, Kidney Stone, OR, Other Additional Past Medical Histor: OR(12-15 YRS AGO)CHRONIC ABD PAIN Past Surgical History: Other Additional Past Surgical Histo: cardiac stents Alcohol Use: Rarely Drug Use: None Adult General Chief Complaint Chief Complaint: ABDOMINAL PAIN HPI HPI Patient is a 73 year old male who presents with complaining of dizziness and nausea and vomiting and diarrhea. Patient complaining of chronic nausea and vomiting and diarrhea with abdominal pain excessive and colonoscopy without improvement of his condition. Patient decided to come to the hospital because of not getting better and felt dizzy while he was in waiting area and had a near syncopal episode. Patient complaining of palpitation since this morning with chest discomfort feeling without shortness of breath, focal neuro deficit, fever and chills. Patient states he has history of abnormal heartbeat and take medication but doesn't know his diagnosis. Patient had heart rate of 186 with SVT at arrival to ER. Review of Systems Review of Systems Constitutional: Denies fever or chills [] Eyes: Denies change in visual acuity, redness, or eye pain [] HENT: Denies nasal congestion or sore throat [] Respiratory: Denies cough or shortness of breath [] Cardiovascular: No additional information not addressed in HPI [] GI: Reports abdominal pain, nausea, vomiting, diarrhea [] : Denies dysuria or hematuria [] Musculoskeletal: Denies back pain or joint pain [] Integument: Denies rash or skin lesions [] Neurologic: Denies headache, focal weakness or sensory changes [] Endocrine: Denies polyuria or polydipsia [] All other systems were reviewed and found to be within normal limits, except as documented in this note. Current Medications Current Medications Current Medications Medications (Trade) Dose Ordered Sig/Kaylie Start Time Stop Time Status Last Admin Dose Admin Adenosine (Adenocard) 6 mg 1X ONCE 09/11/18 10:15 09/11/18 10:17 DC Sodium Chloride 1,000 ml @ 1,000 mls/hr Q1H 09/11/18 10:13 09/11/18 11:12 DC 09/11/18 10:42 1,000 MLS/HR Allergies Allergies Allergies Coded Allergies Type Severity Reaction Last Updated Verified No Known Drug Allergies 09/08/18 No Physical Exam Physical Exam Constitutional: Well developed, well nourished, mild distress, non-toxic appearance. [] HENT: Normocephalic, atraumatic, oropharynx moist. Eyes: PERRLA, EOMI, conjunctiva normal, no discharge. [] Neck: Normal range of motion, no tenderness, supple, no stridor. [] Cardiovascular: Tachycardia with heart rate of 180, no murmur [] Lungs & Thorax: Bilateral breath sounds clear to auscultation [] Abdomen: Bowel sounds normal, soft, no tenderness, no masses, no pulsatile masses. [] Skin: Warm, dry, no erythema, no rash. [] Back: No tenderness, no CVA tenderness. [] Extremities: No tenderness, no cyanosis, no clubbing, ROM intact, no edema. [] Neurologic: Alert and oriented X 3, normal motor function, normal sensory function, no focal deficits noted. [] Psychologic: Affect normal, judgement normal, mood normal. [] Current Patient Data Vital Signs Vital Signs Date Time Temp Pulse Resp B/P (MAP) Pulse Ox O2 Delivery O2 Flow Rate FiO2 09/11/18 10:01 97.0 188 24 124/87 (99) 99 Room Air 97.0 Lab Values Laboratory Tests Test 09/11/18 10:06 09/11/18 10:18 White Blood Count 7.0 x10^3/uL (4.0-11.0) Red Blood Count 5.21 x10^6/uL (4.30-5.70) Hemoglobin 15.9 g/dL (13.0-17.5) Hematocrit 46.5 % (39.0-53.0) Mean Corpuscular Volume 89 fL (79-100) Mean Corpuscular Hemoglobin 31 pg (25-35) Mean Corpuscular Hemoglobin Concent 34 g/dL (31-37) Red Cell Distribution Width 14.9 % (11.5-14.5) H Platelet Count 133 x10^3/uL (140-400) L Neutrophils (%) (Auto) 74 % (31-73) H Lymphocytes (%) (Auto) 15 % (24-48) L Monocytes (%) (Auto) 10 % (0-9) H Eosinophils (%) (Auto) 1 % (0-3) Basophils (%) (Auto) 0 % (0-3) Neutrophils # (Auto) 5.1 x10^3uL (1.8-7.7) Lymphocytes # (Auto) 1.0 x10^3/uL (1.0-4.8) Monocytes # (Auto) 0.7 x10^3/uL (0.0-1.1) Eosinophils # (Auto) 0.1 x10^3/uL (0.0-0.7) Basophils # (Auto) 0.0 x10^3/uL (0.0-0.2) D-Dimer (Ana) 1.32 ug/mlFEU (0.00-0.50) H Sodium Level 137 mmol/L (136-145) Potassium Level 3.2 mmol/L (3.5-5.1) L Chloride Level 98 mmol/L (98-107) Carbon Dioxide Level 31 mmol/L (21-32) Anion Gap 8 (6-14) 18 mmol/L (6-14) H Blood Urea Nitrogen 10 mg/dL (8-26) Creatinine 1.0 mg/dL (0.7-1.3) Estimated GFR (Cockcroft-Gault) 72.8 BUN/Creatinine Ratio 10 (6-20) Glucose Level 113 mg/dL (70-99) H 109 mg/dL (70-99) H Lactic Acid Level 1.2 mmol/L (0.4-2.0) Calcium Level 9.2 mg/dL (8.5-10.1) Magnesium Level 2.1 mg/dL (1.8-2.4) Total Bilirubin 1.2 mg/dL (0.2-1.0) H Aspartate Amino Transferase (AST) 21 U/L (15-37) Alanine Aminotransferase (ALT) 13 U/L (16-63) L Alkaline Phosphatase 67 U/L (46-116) Creatine Kinase 85 U/L (39-308) Troponin I Quantitative < 0.017 ng/mL (0.000-0.055) FP-Huw-X-Type Natriuretic Peptide 965 pg/mL (0-449) H Total Protein 7.5 g/dL (6.4-8.2) Albumin 4.1 g/dL (3.4-5.0) Albumin/Globulin Ratio 1.2 (1.0-1.7) Lipase 180 U/L (73-393) Thyroid Stimulating Hormone (TSH) 0.474 uIU/mL (0.358-3.74) POC Hemoglobin 16.0 g/dL (14-18) POC Hematocrit 47 % (37-52) POC Sodium 139 mmol/L (135-145) POC Potassium 3.7 mmol/L (3.5-5.0) POC Chloride 97 mmol/L (98-110) L POC Total CO2 28 mmol/L (23-32) POC Blood Urea Nitrogen 8 mg/dL (8-26) POC Creatinine 0.8 mg/dL (0.5-1.4) POC Ionized Calcium (Alyse) 1.12 mmol/L (1.13-1.32) L Laboratory Tests 09/11/18 10:06 Laboratory Tests 09/11/18 10:06 09/11/18 10:18 EKG EKG EKG interpreted by me. EKG at 1010 showed SVT with rate of 184, abnormal left axis deviation, left anterior fascicular block, LVH, nonspecific ST and T-wave abnormalities, no acute ST-T wave abnormalities Repeated EKG at 1021 after splinting nose combination showed normal sinus rhythm at rate of 93, abnormal left axis deviation, left anterior fascicular block,no acute ST and T-wave abnormalities Radiology/Procedures Radiology/Procedures [facility] [address] [place] [address] IMAGING REPORT Signed PATIENT: DONALD DELONG ACCOUNT: [id number] : 1945 LOCATION: ER AGE: 73 SEX: M EXAM STATUS: REG ER ORD. PHYSICIAN: LEA BAIRD MD REASON: dizziness, chest pain since yesterday PROCEDURE: PORTABLE CHEST 1V PORTABLE CHEST 1V Clinical indications: Dizziness and chest pain since yesterday. COMPARISON: November 2016. August 09, 2018. Findings: Mild blunting of the left lateral costophrenic angle is seen consistent with a small left-sided pleural effusion with is unchanged. No right-sided pleural effusion is seen. There is mild scarring of the left midlung zone which is stable. No new lung consolidation or pulmonary edema is seen. No pneumothorax is seen. The heart size, pulmonary vasculature, mediastinum and both spike are stable. Impression: Stable small left sided pleural effusion. No new lung infiltrate. Electronically signed by: Flor Rhoades MD (09/11/2018 10:57 AM) [facility] DICTATED and SIGNED BY: FLOR RHOADES MD DATE: 09/11/18 1057 Course & Med Decision Making Course & Med Decision Making Pertinent Labs and Imaging studies reviewed. (See chart for details) Evaluation of patient in ER showed 73-year-old male patient presented for chronic abdominal pain and nausea and vomiting and diarrhea but had episode of SVT with near-syncope and chest pain. Patient converted to sinus rhythm spontaneously before getting any other nausea with dissolving to chest pain and shortness of breath and dizziness. Patient had potassium of 3.2 and treated with oral potassium.Patient requiring admission for further evaluation and treatment. Discussed with Dr. Taylor who is in agreement with admission. Discussed findings and plan with patient and family, who acknowledge understanding and agreement. Dragon Disclaimer Dragon Disclaimer This electronic medical record was generated, in whole or in part, using a voice recognition dictation system. Departure Departure Impression: Primary Impression: SVT (supraventricular tachycardia) Additional Impressions: Chest pain Abdominal pain Hypokalemia Disposition: ADMITTED INPATIENT (1041) Admitting Physician: Crissy Taylor (Accepted admission at 1040) Condition: IMPROVED Referrals: JENNI BOURNE MD (PCP) Problem Qualifiers Additional Impressions: Chest pain Chest pain type: unspecified Qualified Codes: R07.9 - Chest pain, unspecified Abdominal pain Abdominal location: unspecified location Qualified Codes: R10.9 - Unspecified abdominal pain LEA BAIRD MD September 11, 2018 11:20
[2018-09-11 11:42] VITALS: BP 155/77
--- NOTE | 2018-09-11 12:10 | NUR ---
The patient, DONALD DELONG, 73 y/o, M admitted by NEW THOMSON MD, was given written information regarding hospital policies, unit procedures and contact persons. Valuables were checked and patient resting in bed with call light within reach.
[2018-09-11] MEDS ORDERED: IV 1/2 NORMAL SALINE 1,000 ML IV ONE (12:45)
--- NOTE | 2018-09-11 12:48 | PDOC1 ---
History and Physical Date of Admission Date of Admission DATE: 09/11/18 TIME: 12:42 Identification/Chief Complaint Chief Complaint Right-sided lower abdominal pain, nausea vomiting diarrhea Source Source: Caregiver, Chart review, Patient History of Present Illness History of Present Illness [age]-year-old white male, just had a colonoscopy by Dr. Gonzalez last Tuesday which was 3-4 days ago, comes in because of diarrhea and nausea vomiting but his strong symptom is right lower quadrant abdominal pain. He had a CAT scan in an outside facility either [facility] or here he claims He's not the best historian-unknown results or was told normal. C scope was only poly per his acct, EGD normal Heart rate 180 SVT at the ER, tells me history of arrhythmia but cannot tell me which kind Looking at home meds, on metoprolol and statin Did receive adenosine at the ER Some lab abnormality: increase in anion gap 18 with normal bicarbonate. D-dimer 1.32. Chest x-ray unimpressive. Started on liquid diet Still Complains of right lower quadrant pain-appendix gallbladder still intact Claims history of liver problems Past Medical History Cardiovascular: HTN, ND, Hyperlipidemia Pulmonary: No pertinent hx CENTRAL NERVOUS SYSTEM: Other GI: GERD Heme/Onc: No pertinent hx Hepatobiliary: No pertinent hx Psych: No pertinent hx Musculoskeletal: low back pain, Osteoarthritis Infectious disease: No pertinent hx Renal/: Other Endocrine: No pertinent hx Past Surgical History Past Surgical History: Tonsillectomy, Other Family History Family History: Coronary Artery Disease Social History Smoke: No ALCOHOL: none Drugs: None Current Problem List Problem List Problems Medical Problems: (1) Hypokalemia Status: Acute Current Medications Current Medications Current Medications Adenosine (Adenocard) 6 mg STK-MED ONCE IV ; Start 09/11/18 at 10:13; Stop 09/11/18 at 10:14; Status DC Adenosine (Adenocard) 12 mg 1X ONCE IV ; Start 09/11/18 at 10:15; Stop 09/11/18 at 10:17; Status DC Sodium Chloride 1,000 ml @ 1,000 mls/hr Q1H IV Last administered on 09/11/18at 10:42; Start 09/11/18 at 10:13; Stop 09/11/18 at 11:12; Status DC Adenosine (Adenocard) 6 mg 1X ONCE IV ; Start 09/11/18 at 10:15; Stop 09/11/18 at 10:17; Status DC Ondansetron HCl (Zofran) 4 mg 1X ONCE IV Last administered on 09/11/18at 10:46; Start 09/11/18 at 10:45; Stop 09/11/18 at 10:46; Status DC Potassium Chloride (Klor-Con) 40 meq 1X ONCE PO ; Start 09/11/18 at 11:15; Stop 09/11/18 at 11:16; Status DC Aspirin (Ecotrin) 81 mg DAILY PO ; Start 09/11/18 at 13:00 Metoprolol Succinate (Toprol Xl) 25 mg HS PO ; Start 09/11/18 at 21:00 Ondansetron HCl (Zofran Odt) 4 mg PRN Q6HRS PRN PO NAUSEA/VOMITING; Start 09/11/18 at 13:00 Pantoprazole Sodium (Protonix) 40 mg DAILYAC PO ; Start 09/11/18 at 13:00 Simvastatin (Zocor) 40 mg QHS PO ; Start 09/11/18 at 21:00 Ondansetron HCl (Zofran) 4 mg STK-MED ONCE .ROUTE ; Start 09/11/18 at 10:46; Stop 09/11/18 at 12:12; Status DC Active Scripts Active Ondansetron Odt (Ondansetron) 4 Mg Tab.rapdis 1 Tab PO PRN Q6-8HRS Protonix (Pantoprazole Sodium) 40 Mg Tablet. 1 Tab PO DAILY Reported Zocor (Simvastatin) 40 Mg Tablet 40 Mg PO HS Toprol Xl (Metoprolol Succinate) 25 Mg Tab.er.24h 25 Mg PO HS Aspir 81 (Aspirin) 81 Mg Tablet.dr 81 Mg PO DAILY Allergies Allergies: Coded Allergies: No Known Drug Allergies (Unverified , 09/08/18) ROS Review of System As per history of present illness, the rest of ROS 14 point negative Physical Exam General: Alert, Oriented X3, Cooperative, No acute distress HEENT: Atraumatic, PERRLA, EOMI Lungs: Clear to auscultation, Normal air movement Heart: S1S2, RRR, no thrills, no rubs, no gallops, no murmurs Cardiovascular: S1, S2 Abdomen: Soft, Other (tenderness right lower quadrant but negative Eckert's, no rebound, normoactive NABS) Male Genitals Exam: normal genitalia, normal prostate Rectal Exam: not examined PELVIC: Nml ext genitalia Extremities: No clubbing, No cyanosis, No edema, Normal pulses, No tenderness/swelling Skin: No rashes, No breakdown, No significant lesion Neuro: Normal gait, Normal speech, Strength at 5/5 X4 ext, Normal tone, Sensation intact, Cranial nerves 3-12 NL, Reflexes 2+ Psych/Mental Status: Mental status NL, Mood NL Vitals Vitals Vital Signs Date Time Temp Pulse Resp B/P (MAP) Pulse Ox O2 Delivery O2 Flow Rate FiO2 09/11/18 11:42 97.6 78 18 155/77 (103) 96 Room Air 97.6 09/11/18 10:33 2.0 Labs Labs Laboratory Tests Test 09/11/18 10:06 09/11/18 10:18 09/11/18 10:55 White Blood Count 7.0 x10^3/uL (4.0-11.0) Red Blood Count 5.21 x10^6/uL (4.30-5.70) Hemoglobin 15.9 g/dL (13.0-17.5) Hematocrit 46.5 % (39.0-53.0) Mean Corpuscular Volume 89 fL (79-100) Mean Corpuscular Hemoglobin 31 pg (25-35) Mean Corpuscular Hemoglobin Concent 34 g/dL (31-37) Red Cell Distribution Width 14.9 % (11.5-14.5) Platelet Count 133 x10^3/uL (140-400) Neutrophils (%) (Auto) 74 % (31-73) Lymphocytes (%) (Auto) 15 % (24-48) Monocytes (%) (Auto) 10 % (0-9) Eosinophils (%) (Auto) 1 % (0-3) Basophils (%) (Auto) 0 % (0-3) Neutrophils # (Auto) 5.1 x10^3uL (1.8-7.7) Lymphocytes # (Auto) 1.0 x10^3/uL (1.0-4.8) Monocytes # (Auto) 0.7 x10^3/uL (0.0-1.1) Eosinophils # (Auto) 0.1 x10^3/uL (0.0-0.7) Basophils # (Auto) 0.0 x10^3/uL (0.0-0.2) D-Dimer (Ana) 1.32 ug/mlFEU (0.00-0.50) Sodium Level 137 mmol/L (136-145) Potassium Level 3.2 mmol/L (3.5-5.1) Chloride Level 98 mmol/L (98-107) Carbon Dioxide Level 31 mmol/L (21-32) Anion Gap 8 (6-14) 18 mmol/L (6-14) Blood Urea Nitrogen 10 mg/dL (8-26) Creatinine 1.0 mg/dL (0.7-1.3) Estimated GFR (Cockcroft-Gault) 72.8 BUN/Creatinine Ratio 10 (6-20) Glucose Level 113 mg/dL (70-99) 109 mg/dL (70-99) Lactic Acid Level 1.2 mmol/L (0.4-2.0) Calcium Level 9.2 mg/dL (8.5-10.1) Magnesium Level 2.1 mg/dL (1.8-2.4) Total Bilirubin 1.2 mg/dL (0.2-1.0) Aspartate Amino Transf (AST/SGOT) 21 U/L (15-37) Alanine Aminotransferase (ALT/SGPT) 13 U/L (16-63) Alkaline Phosphatase 67 U/L (46-116) Creatine Kinase 85 U/L (39-308) Troponin I Quantitative < 0.017 ng/mL (0.000-0.055) PU-Mgb-M-Type Natriuretic Peptide 965 pg/mL (0-449) Total Protein 7.5 g/dL (6.4-8.2) Albumin 4.1 g/dL (3.4-5.0) Albumin/Globulin Ratio 1.2 (1.0-1.7) Lipase 180 U/L (73-393) Bedside Hemoglobin 16.0 g/dL (14-18) Bedside Hematocrit 47 % (37-52) Bedside Sodium 139 mmol/L (135-145) Bedside Potassium 3.7 mmol/L (3.5-5.0) Bedside Chloride 97 mmol/L (98-110) Bedside Total CO2 28 mmol/L (23-32) Bedside Blood Urea Nitrogen 8 mg/dL (8-26) Bedside Creatinine 0.8 mg/dL (0.5-1.4) Bedside Ionized Calcium (Alyse) 1.12 mmol/L (1.13-1.32) Urine Collection Type Unknown Urine Color Yellow Urine Clarity Clear Urine pH 7.0 Urine Specific [place] 1.010 Urine Protein Negative mg/dL (NEG-TRACE) Urine Glucose (UA) Negative mg/dL (NEG) Urine Ketones (Stick) Negative mg/dL (NEG) Urine Blood Negative (NEG) Urine Nitrite Negative (NEG) Urine Bilirubin Negative (NEG) Urine Urobilinogen Dipstick 0.2 mg/dL (0.2 mg/dL) Urine Leukocyte Esterase Negative (NEG) Urine RBC 0 /HPF (0-2) Urine WBC Occ /HPF (0-4) Urine Bacteria 0 /HPF (0-FEW) Urine Mucus Slight /LPF Laboratory Tests Test 09/11/18 10:06 09/11/18 10:18 09/11/18 10:55 White Blood Count 7.0 x10^3/uL (4.0-11.0) Red Blood Count 5.21 x10^6/uL (4.30-5.70) Hemoglobin 15.9 g/dL (13.0-17.5) Hematocrit 46.5 % (39.0-53.0) Mean Corpuscular Volume 89 fL (79-100) Mean Corpuscular Hemoglobin 31 pg (25-35) Mean Corpuscular Hemoglobin Concent 34 g/dL (31-37) Red Cell Distribution Width 14.9 % (11.5-14.5) Platelet Count 133 x10^3/uL (140-400) Neutrophils (%) (Auto) 74 % (31-73) Lymphocytes (%) (Auto) 15 % (24-48) Monocytes (%) (Auto) 10 % (0-9) Eosinophils (%) (Auto) 1 % (0-3) Basophils (%) (Auto) 0 % (0-3) Neutrophils # (Auto) 5.1 x10^3uL (1.8-7.7) Lymphocytes # (Auto) 1.0 x10^3/uL (1.0-4.8) Monocytes # (Auto) 0.7 x10^3/uL (0.0-1.1) Eosinophils # (Auto) 0.1 x10^3/uL (0.0-0.7) Basophils # (Auto) 0.0 x10^3/uL (0.0-0.2) D-Dimer (Ana) 1.32 ug/mlFEU (0.00-0.50) Sodium Level 137 mmol/L (136-145) Potassium Level 3.2 mmol/L (3.5-5.1) Chloride Level 98 mmol/L (98-107) Carbon Dioxide Level 31 mmol/L (21-32) Anion Gap 8 (6-14) 18 mmol/L (6-14) Blood Urea Nitrogen 10 mg/dL (8-26) Creatinine 1.0 mg/dL (0.7-1.3) Estimated GFR (Cockcroft-Gault) 72.8 BUN/Creatinine Ratio 10 (6-20) Glucose Level 113 mg/dL (70-99) 109 mg/dL (70-99) Lactic Acid Level 1.2 mmol/L (0.4-2.0) Calcium Level 9.2 mg/dL (8.5-10.1) Magnesium Level 2.1 mg/dL (1.8-2.4) Total Bilirubin 1.2 mg/dL (0.2-1.0) Aspartate Amino Transf (AST/SGOT) 21 U/L (15-37) Alanine Aminotransferase (ALT/SGPT) 13 U/L (16-63) Alkaline Phosphatase 67 U/L (46-116) Creatine Kinase 85 U/L (39-308) Troponin I Quantitative < 0.017 ng/mL (0.000-0.055) TT-Nyb-J-Type Natriuretic Peptide 965 pg/mL (0-449) Total Protein 7.5 g/dL (6.4-8.2) Albumin 4.1 g/dL (3.4-5.0) Albumin/Globulin Ratio 1.2 (1.0-1.7) Lipase 180 U/L (73-393) Bedside Hemoglobin 16.0 g/dL (14-18) Bedside Hematocrit 47 % (37-52) Bedside Sodium 139 mmol/L (135-145) Bedside Potassium 3.7 mmol/L (3.5-5.0) Bedside Chloride 97 mmol/L (98-110) Bedside Total CO2 28 mmol/L (23-32) Bedside Blood Urea Nitrogen 8 mg/dL (8-26) Bedside Creatinine 0.8 mg/dL (0.5-1.4) Bedside Ionized Calcium (Alyse) 1.12 mmol/L (1.13-1.32) Urine Collection Type Unknown Urine Color Yellow Urine Clarity Clear Urine pH 7.0 Urine Specific [place] 1.010 Urine Protein Negative mg/dL (NEG-TRACE) Urine Glucose (UA) Negative mg/dL (NEG) Urine Ketones (Stick) Negative mg/dL (NEG) Urine Blood Negative (NEG) Urine Nitrite Negative (NEG) Urine Bilirubin Negative (NEG) Urine Urobilinogen Dipstick 0.2 mg/dL (0.2 mg/dL) Urine Leukocyte Esterase Negative (NEG) Urine RBC 0 /HPF (0-2) Urine WBC Occ /HPF (0-4) Urine Bacteria 0 /HPF (0-FEW) Urine Mucus Slight /LPF VTE Prophylaxis Ordered VTE Prophylaxis Devices: Yes VTE Pharmacological Prophylaxi: Yes Assessment/Plan Assessment/Plan Acute right lower quadrant pain-need to check appendix-check a CAT scan Nausea vomiting, diarrhea-seems to have abated now Supportive treatment Hypertension history, controlled Elevated anion gap-did receive 1 L fluid-continue 1 more for now then re check BMP tmr Elevated d-dimer with no signs of hypoxia- no further eval needed Hx arrhythmia, -SVT in the ER-status post adenosine PLAN: Cards consult re the SVT at ER Hook telemetry GI consult-known to Dr. Gonzalez and recent EGD colonoscopy Check a CAT scan - check appendix, colon etc I have resumed home meds including metoprolol and statin Dw him FULL CODE NEW THOMSON MD September 11, 2018 12:48
[2018-09-11] MEDS: ASPIRIN ENTERIC COATED 81 MG TABLET.DR. PO SCH (13:01)
[2018-09-11] MEDS: PANTOPRAZOLE 40 MG TABLET.DR. PO SCH (13:02)
[2018-09-11] MEDS ORDERED: IOHEXOL 300 MG/ML 100ML VIAL. IV ONE (13:15)
[2018-09-11] MEDS ORDERED: IOHEXOL 240 MG/ML 50ML VIAL. PO ONE (13:15)
[2018-09-11] MEDS: ONDANSETRON ODT 4 MG TAB.RAPDIS. PO PRN (13:19)
[2018-09-11] MEDS ORDERED: CONTRAST GIVEN. MC PRN (13:30)
--- NOTE | 2018-09-11 13:42 | PDOC2 ---
GI CONSULT Reason For Consult: Abd pain HPI: HPI: 73 y/o male admitted through ER, seen w/ Dr. Gonzalez this afternoon. Had another attack of RLQ pain w/ vomiting, then felt dizzy "because I'm not eating" - was in SVT in ER. Had EGD and colonoscopy on Tuesday - unrevealing except colon polyps. RLQ discomfort is worse at night beginning around 10:00. Has been using enemas and describes mucousy stools (though reports a normal stool yesterday). Says he was told he had fatty liver and some cirrhosis. CT A/P ordered and he'd like to eat. PMH: PMH: HTN, [place], HLD, GERD, OA, left renal cyst, nephrolithiasis, tonsillectomy, PCI, back surgery FH: Family History: No pertinent hx Social History: Smoke: No ALCOHOL: none Drugs: None ROS: GEN: Denies fevers, chills, sweats HEENT: Denies blurred vision, sore throat CV: Denies chest pain RESP: Denies shortness of air, cough GI: Per HPI : Denies hematuria, dysuria ENDO: Denies weight changes NEURO: +dizziness MSK: Denies weakness, joint pain/swelling SKIN: Denies jaundice, pruritus Vitals: Vitals: Vital Signs Date Time Temp Pulse Resp B/P (MAP) Pulse Ox O2 Delivery O2 Flow Rate FiO2 09/11/18 11:42 97.6 78 18 155/77 (103) 96 Room Air 97.6 09/11/18 10:33 2.0 Labs: Labs: Laboratory Tests Test 09/11/18 10:06 09/11/18 10:18 09/11/18 10:55 White Blood Count 7.0 x10^3/uL (4.0-11.0) Red Blood Count 5.21 x10^6/uL (4.30-5.70) Hemoglobin 15.9 g/dL (13.0-17.5) Hematocrit 46.5 % (39.0-53.0) Mean Corpuscular Volume 89 fL (79-100) Mean Corpuscular Hemoglobin 31 pg (25-35) Mean Corpuscular Hemoglobin Concent 34 g/dL (31-37) Red Cell Distribution Width 14.9 % (11.5-14.5) Platelet Count 133 x10^3/uL (140-400) Neutrophils (%) (Auto) 74 % (31-73) Lymphocytes (%) (Auto) 15 % (24-48) Monocytes (%) (Auto) 10 % (0-9) Eosinophils (%) (Auto) 1 % (0-3) Basophils (%) (Auto) 0 % (0-3) Neutrophils # (Auto) 5.1 x10^3uL (1.8-7.7) Lymphocytes # (Auto) 1.0 x10^3/uL (1.0-4.8) Monocytes # (Auto) 0.7 x10^3/uL (0.0-1.1) Eosinophils # (Auto) 0.1 x10^3/uL (0.0-0.7) Basophils # (Auto) 0.0 x10^3/uL (0.0-0.2) D-Dimer (Ana) 1.32 ug/mlFEU (0.00-0.50) Sodium Level 137 mmol/L (136-145) Potassium Level 3.2 mmol/L (3.5-5.1) Chloride Level 98 mmol/L (98-107) Carbon Dioxide Level 31 mmol/L (21-32) Anion Gap 8 (6-14) 18 mmol/L (6-14) Blood Urea Nitrogen 10 mg/dL (8-26) Creatinine 1.0 mg/dL (0.7-1.3) Estimated GFR (Cockcroft-Gault) 72.8 BUN/Creatinine Ratio 10 (6-20) Glucose Level 113 mg/dL (70-99) 109 mg/dL (70-99) Lactic Acid Level 1.2 mmol/L (0.4-2.0) Calcium Level 9.2 mg/dL (8.5-10.1) Magnesium Level 2.1 mg/dL (1.8-2.4) Total Bilirubin 1.2 mg/dL (0.2-1.0) Aspartate Amino Transf (AST/SGOT) 21 U/L (15-37) Alanine Aminotransferase (ALT/SGPT) 13 U/L (16-63) Alkaline Phosphatase 67 U/L (46-116) Creatine Kinase 85 U/L (39-308) Troponin I Quantitative < 0.017 ng/mL (0.000-0.055) LR-Bkw-I-Type Natriuretic Peptide 965 pg/mL (0-449) Total Protein 7.5 g/dL (6.4-8.2) Albumin 4.1 g/dL (3.4-5.0) Albumin/Globulin Ratio 1.2 (1.0-1.7) Lipase 180 U/L (73-393) Thyroid Stimulating Hormone (TSH) 0.474 uIU/mL (0.358-3.74) Bedside Hemoglobin 16.0 g/dL (14-18) Bedside Hematocrit 47 % (37-52) Bedside Sodium 139 mmol/L (135-145) Bedside Potassium 3.7 mmol/L (3.5-5.0) Bedside Chloride 97 mmol/L (98-110) Bedside Total CO2 28 mmol/L (23-32) Bedside Blood Urea Nitrogen 8 mg/dL (8-26) Bedside Creatinine 0.8 mg/dL (0.5-1.4) Bedside Ionized Calcium (Alyse) 1.12 mmol/L (1.13-1.32) Urine Collection Type Unknown Urine Color Yellow Urine Clarity Clear Urine pH 7.0 Urine Specific [place] 1.010 Urine Protein Negative mg/dL (NEG-TRACE) Urine Glucose (UA) Negative mg/dL (NEG) Urine Ketones (Stick) Negative mg/dL (NEG) Urine Blood Negative (NEG) Urine Nitrite Negative (NEG) Urine Bilirubin Negative (NEG) Urine Urobilinogen Dipstick 0.2 mg/dL (0.2 mg/dL) Urine Leukocyte Esterase Negative (NEG) Urine RBC 0 /HPF (0-2) Urine WBC Occ /HPF (0-4) Urine Bacteria 0 /HPF (0-FEW) Urine Mucus Slight /LPF Allergies: Coded Allergies: No Known Drug Allergies (Unverified , 09/08/18) Medications: Current Medications Medications (Trade) Dose Ordered Sig/Kaylie Route PRN Reason Start Time Stop Time Status Last Admin Dose Admin Sodium Chloride 1,000 ml @ 1,000 mls/hr Q1H IV 09/11/18 10:13 09/11/18 11:12 DC 09/11/18 10:42 Ondansetron HCl (Zofran) 4 mg 1X ONCE IV 09/11/18 10:45 09/11/18 10:46 DC 09/11/18 10:46 Potassium Chloride (Klor-Con) 40 meq 1X ONCE PO 09/11/18 11:15 09/11/18 11:16 DC 09/11/18 13:01 Aspirin (Ecotrin) 81 mg DAILY PO 09/11/18 13:00 09/11/18 13:01 Ondansetron HCl (Zofran Odt) 4 mg PRN Q6HRS PRN PO NAUSEA/VOMITING 09/11/18 13:00 09/11/18 13:19 Pantoprazole Sodium (Protonix) 40 mg DAILYAC PO 09/11/18 13:00 09/11/18 13:02 Sodium Chloride 1,000 ml @ 100 mls/hr 1X ONCE IV 09/11/18 12:45 09/11/18 22:44 09/11/18 13:04 Imaging: Imaging: CXR Impression: Stable small left sided pleural effusion. No new lung infiltrate. PE: GEN: NAD HEENT: Atraumatic, PERRL LUNGS: CTAB HEART: RRR ABD: NABS, S/ND, RLQ discomfort EXTREMITY: No edema SKIN: No rashes, no jaundice NEURO/PSYCH: A & O 3 A/P: A/P: RLQ pain, n/v, dizziness SVT Thrombocytopenia, elevated D-dimer CRC screen - UTD (Tuesday) -- Recent 'scopes unrevealing. Await CT - if unremarkable, can ADAT. Agree w/ PPI. JORDON RODARTE September 11, 2018 13:42
[2018-09-11 15:00] VITALS: BP 158/89
--- NOTE | 2018-09-11 15:07 | PDOC2 ---
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 Taylor SOURCE Source: Chart review, Patient HISTORY OF PRESENT ILLNESS HISTORY OF PRESENT ILLNESS This is a 73 yo male, with a history of frequent PVC's and PSVT, who presented secondary to abdominal pain. Was noted to be in SVT in ED, which prompted this consult. Adenosine initially ordered, but patient converted on his own ad has maintained SR since. Has had RLQ for "months". Much worse recently. Has been unable to eat. Having frequent nausea/vomiting. Is slightly weak, dizzy. No cheat pain, palpitations, or SOA. Has colonoscopy last week- not sure what was found. Patient was previously recommend for ablation therapy, but has declined in past. Report his heart rate is controlled with Metoprolol and "will be on this until I ". Was seen at last month due to dizziness, weakness, and near syncope. Was seen by cardiology there. Stress test considered, but patient declined. PAST MEDICAL HISTORY Past Medical History Cardiovascular: HTN, IA, Hyperlipidemia, CAD s/p PCI/stent to RCA, PSVT on metoprolol Pulmonary: No pertinent hx CENTRAL NERVOUS SYSTEM: Other GI: GERD Heme/Onc: No pertinent hx Hepatobiliary: No pertinent hx Psych: No pertinent hx Musculoskeletal: low back pain, Osteoarthritis Infectious disease: No pertinent hx Renal/: Other (urinary retention) Endocrine: No pertinent hx PAST SURGICAL HISTORY Past Surgical History: Tonsillectomy, Other (back surgery) FAMILY HISTORY Family History: Coronary Artery Disease, Hypertension SOCIAL HISTORY Smoke: Quit ALCOHOL: other (quit ) Drugs: None Lives: Alone CURRENT MEDICATIONS CURRENT MEDICATIONS Current Medications Medications (Trade) Dose Ordered Sig/Kaylie Route PRN Reason Start Time Stop Time Status Last Admin Dose Admin Sodium Chloride 1,000 ml @ 1,000 mls/hr Q1H IV 09/11/18 10:13 09/11/18 11:12 DC 09/11/18 10:42 Ondansetron HCl (Zofran) 4 mg 1X ONCE IV 09/11/18 10:45 09/11/18 10:46 DC 09/11/18 10:46 Potassium Chloride (Klor-Con) 40 meq 1X ONCE PO 09/11/18 11:15 09/11/18 11:16 DC 09/11/18 13:01 Aspirin (Ecotrin) 81 mg DAILY PO 09/11/18 13:00 09/11/18 13:01 Ondansetron HCl (Zofran Odt) 4 mg PRN Q6HRS PRN PO NAUSEA/VOMITING 09/11/18 13:00 09/11/18 13:19 Pantoprazole Sodium (Protonix) 40 mg DAILYAC PO 09/11/18 13:00 09/11/18 13:02 Sodium Chloride 1,000 ml @ 100 mls/hr 1X ONCE IV 09/11/18 12:45 09/11/18 22:44 09/11/18 13:04 ALLERGIES ALLERGIES: Coded Allergies: No Known Drug Allergies (Unverified , 09/08/18) ROS Review of System 14 point ROS conducted with pertinent positives noted above in HPI. PHYSICAL EXAM General: Alert, Oriented X3, Cooperative, No acute distress HEENT: Atraumatic, Mucous membr. moist/pink Lungs: Clear to auscultation Heart: Regular rate, Normal S1, Normal S2, Other (2/6 systolic murmur ) Abdomen: Other (RLQ tenderness) Extremities: No edema, Normal pulses Skin: No significant lesion Neuro: Normal speech, Sensation intact Psych/Mental Status: Mental status NL, Mood NL MUSCULOSKELETAL: Osteoarthritic changes both hands VITALS VITALS Vital Signs Date Time Temp Pulse Resp B/P (MAP) Pulse Ox O2 Delivery O2 Flow Rate FiO2 09/11/18 11:42 97.6 78 18 155/77 (103) 96 Room Air 97.6 09/11/18 10:33 2.0 LABS Lab: Laboratory Tests Test 09/11/18 10:06 09/11/18 10:18 09/11/18 10:55 09/11/18 14:05 White Blood Count 7.0 x10^3/uL (4.0-11.0) Red Blood Count 5.21 x10^6/uL (4.30-5.70) Hemoglobin 15.9 g/dL (13.0-17.5) Hematocrit 46.5 % (39.0-53.0) Mean Corpuscular Volume 89 fL (79-100) Mean Corpuscular Hemoglobin 31 pg (25-35) Mean Corpuscular Hemoglobin Concent 34 g/dL (31-37) Red Cell Distribution Width 14.9 % (11.5-14.5) Platelet Count 133 x10^3/uL (140-400) Neutrophils (%) (Auto) 74 % (31-73) Lymphocytes (%) (Auto) 15 % (24-48) Monocytes (%) (Auto) 10 % (0-9) Eosinophils (%) (Auto) 1 % (0-3) Basophils (%) (Auto) 0 % (0-3) Neutrophils # (Auto) 5.1 x10^3uL (1.8-7.7) Lymphocytes # (Auto) 1.0 x10^3/uL (1.0-4.8) Monocytes # (Auto) 0.7 x10^3/uL (0.0-1.1) Eosinophils # (Auto) 0.1 x10^3/uL (0.0-0.7) Basophils # (Auto) 0.0 x10^3/uL (0.0-0.2) D-Dimer (Ana) 1.32 ug/mlFEU (0.00-0.50) Sodium Level 137 mmol/L (136-145) Potassium Level 3.2 mmol/L (3.5-5.1) Chloride Level 98 mmol/L (98-107) Carbon Dioxide Level 31 mmol/L (21-32) Anion Gap 8 (6-14) 18 mmol/L (6-14) Blood Urea Nitrogen 10 mg/dL (8-26) Creatinine 1.0 mg/dL (0.7-1.3) Estimated GFR (Cockcroft-Gault) 72.8 BUN/Creatinine Ratio 10 (6-20) Glucose Level 113 mg/dL (70-99) 109 mg/dL (70-99) Lactic Acid Level 1.2 mmol/L (0.4-2.0) Calcium Level 9.2 mg/dL (8.5-10.1) Magnesium Level 2.1 mg/dL (1.8-2.4) Total Bilirubin 1.2 mg/dL (0.2-1.0) Aspartate Amino Transf (AST/SGOT) 21 U/L (15-37) Alanine Aminotransferase (ALT/SGPT) 13 U/L (16-63) Alkaline Phosphatase 67 U/L (46-116) Creatine Kinase 85 U/L (39-308) Troponin I Quantitative < 0.017 ng/mL (0.000-0.055) 0.042 ng/mL (0.000-0.055) YI-Xjn-D-Type Natriuretic Peptide 965 pg/mL (0-449) Total Protein 7.5 g/dL (6.4-8.2) Albumin 4.1 g/dL (3.4-5.0) Albumin/Globulin Ratio 1.2 (1.0-1.7) Lipase 180 U/L (73-393) Thyroid Stimulating Hormone (TSH) 0.474 uIU/mL (0.358-3.74) Bedside Hemoglobin 16.0 g/dL (14-18) Bedside Hematocrit 47 % (37-52) Bedside Sodium 139 mmol/L (135-145) Bedside Potassium 3.7 mmol/L (3.5-5.0) Bedside Chloride 97 mmol/L (98-110) Bedside Total CO2 28 mmol/L (23-32) Bedside Blood Urea Nitrogen 8 mg/dL (8-26) Bedside Creatinine 0.8 mg/dL (0.5-1.4) Bedside Ionized Calcium (Alyse) 1.12 mmol/L (1.13-1.32) Urine Collection Type Unknown Urine Color Yellow Urine Clarity Clear Urine pH 7.0 Urine Specific [place] 1.010 Urine Protein Negative mg/dL (NEG-TRACE) Urine Glucose (UA) Negative mg/dL (NEG) Urine Ketones (Stick) Negative mg/dL (NEG) Urine Blood Negative (NEG) Urine Nitrite Negative (NEG) Urine Bilirubin Negative (NEG) Urine Urobilinogen Dipstick 0.2 mg/dL (0.2 mg/dL) Urine Leukocyte Esterase Negative (NEG) Urine RBC 0 /HPF (0-2) Urine WBC Occ /HPF (0-4) Urine Bacteria 0 /HPF (0-FEW) Urine Mucus Slight /LPF ECHOCARDIOGRAM ECHOCARDIOGRAM <Conclusion> The left ventricle is normal size. Left ventricle systolic function is normal. The Ejection Fraction is 50-55%. There is no significant aortic valvular stenosis. Doppler and Color Flow revealed mild aortic regurgitation. Doppler and Color-flow revealed mild to moderate mitral regurgitation. Doppler and Color Flow revealed trace tricuspid regurgitation. The PA pressure was estimated at 26 mmHg. DATE: 08/09/18 1421 HEART CATH HEART CATH FINDINGS 1. Hemodynamics: Left ventricular end-diastolic pressure of 16 mmHg. No pullback gradient across the aortic valve. 2. Left ventriculography: Posterobasal wall hypokinesis with ejection fraction estimated at 55%. No significant mitral regurgitation seen. 3. Coronary angiography: a. The left main coronary artery arose from the left sinus of Valsalva, gave rise to the left anterior descending and left circumflex arteries and did not show any significant stenosis. b. The left anterior descending artery showed areas of ectasia in proximal segment without any significant stenosis. c. The left circumflex artery did not show any significant stenosis. d. The right coronary artery was a large and dominant vessel arising from the right sinus of Valsalva that showed 30% stenosis in proximal to mid segment, patent stents mid and distal segments and ectatic segment just distal to the stent. Conclusion 1. No significant coronary artery disease with patent previously placed stents in the right coronary artery. 2. Posterobasal wall hypokinesis with ejection fraction estimated at 55% Recommendations Medical Therapy DATE: 10/25/16 1518 ASSESSMENT/PLAN ASSESSMENT/PLAN 1. PSVT; on Toprol for rate control. Cardiac ablation has been recommended in past, but patient deferred. Outpatient monitor recommended 08/2018 at [facility] due to high PVC burden, but patient declined. 2. Abdominal pain, nausea/vomiting. Recent scope unrevealing. CT abdomen/pelvic pending 3. CAD s/p PCI/stent to RCA. Stable. CP free. Recent echo with preserved LV systolic function. Patient declined stress test last month as [facility] per record review. Cath 10/2016 with patent stent as noted above. 4. Hypertension; mildly elevated 5. Hyperlipidemia; statin Recommendations Continue Toprol for rate control; increase to 50mg Secondary prevention. ASA, statin therapy. Consider outpatient ischemic evaluation and event monitor to note arrhythmia burden if patient would agree/comply. Supportive care. ELSIE TORRES MD 09/12/18 0905: CARDIAC CONSULT ASSESSMENT/PLAN ASSESSMENT/PLAN Patient seen and examined 09/11/18. Agree with SOFTWARE QA SYSTEM SPECIALIST's assessment and plan. Patient with supraventricular tachycardia on admission presently back in sinus rhythm. Recent 2-D echo showed normal LV systolic function. 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
--- NOTE | 2018-09-11 15:29 | EKG ---
[facility] [address] [place] [address] Test Date: 2018-09-11 Test Time: 10:21:06 Pat Name: DONALD DELONG Department: Room: 204 1 Gender: M Senior Business Consultant: : 1945 Requested By: LEA BAIRD Order Number: [id number] Reading MD: Robson Persaud MD Measurements Intervals [place] Rate: 92 P: -56 ME: 124 QRS: -48 QRSD: 88 T: 58 QT: 356 QTc: 445 Interpretive Statements SR LAFB NON-SPECIFIC ST/T CHANGES Electronically Signed On 10-03-2018 11:45:11 CDT by Robson Persaud MD
--- NOTE | 2018-09-11 15:33 | RAD ---
CT of the abdomen and pelvis with contrast, 09/11/2018: HISTORY: Diarrhea, nausea and vomiting, right abdominal pain, possible appendicitis Multidetector CT imaging was performed following oral and IV administration of contrast. Comparison is made to a study from 08/09/2018. There is minimal streaky atelectasis or scarring posteriorly in the lung bases. Moderate coronary artery calcifications are present. The liver demonstrates an unusual configuration with bowel loops extending along its anterior aspect of the to the level of the right diaphragm. There are 2 cysts in the superior aspect of the liver. There is no evidence of bile duct dilatation. The gallbladder is unremarkable. No pancreatic abnormality is seen. The spleen is of normal size. There are several simple cysts in both kidneys. The kidneys show no evidence of obstruction. There is mild aortoiliac calcific plaquing without evidence of aneurysm. No abdominal or pelvic adenopathy is seen. The prostate gland is mildly enlarged. The bowel loops are not dilated. The appendix is well visualized. It contains a tiny radiopacity. The appendix is not enlarged and there is no pericholecystic edema. The inguinal rings are mildly dilated without evidence of bowel herniation. No free fluid or free air is evident in the abdomen or pelvis. Both inguinal rings are mildly dilated. No bowel herniation is evident. IMPRESSION: 1. Renal and hepatic cysts. 2. Mild nonspecific prostatic enlargement. 3. Dilated inguinal rings without evidence of bowel herniation. 4. No acute abdominal or pelvic abnormality is detected. PQRS Compliance Statement: One or more of the following individualized dose reduction techniques were utilized for this examination: 1. Automated exposure control 2. Adjustment of the mA and/or kV according to patient size 3. Use of iterative reconstruction technique Electronically signed by: Azeem Anaya MD (09/11/2018 3:29 PM) [facility] [place]
--- NOTE | 2018-09-11 15:35 | EKG ---
[facility] [address] [place] [address] Test Date: 2018-09-11 Test Time: 10:10:18 Pat Name: DONALD DELONG Department: Room: 204 1 Gender: M Reception Specialist: : 1945 Requested By: LEA BAIRD Order Number: [id number] Reading MD: Robson Persaud MD Measurements Intervals [place] Rate: 184 P: [place]: QRS: -53 QRSD: 82 T: 94 QT: 280 QTc: 491 Interpretive Statements SUPRAVENTRICULAR TACHYCARDIA PROBABLE FLUTTER Electronically Signed On 10-03-2018 11:44:47 CDT by Robson Persaud MD
[2018-09-11] MEDS: ONDANSETRON PF 4 MG/2 ML VIAL. IV PRN (18:03)
[2018-09-11] MEDS: MORPHINE SULFATE 2 MG/ML VIAL. IV PRN (18:04)
[2018-09-11 19:47] VITALS: BP 146/91
[2018-09-11] MEDS: PROCHLORPERAZINE 10 MG/2 ML VIAL. IV PRN (20:46)
[2018-09-11] MEDS: METOPROLOL SUCC 24HR ER 50 MG TAB.ER.24H. PO SCH (20:47)
[2018-09-11] MEDS: HYDROcodone/APAP 5/325MG 1 TAB TABLET PO PRN (20:49)
[2018-09-11] MEDS ORDERED: SIMVASTATIN 40 MG TABLET. PO SCH (21:00)
[2018-09-11] MEDS ORDERED: METOPROLOL SUCC 24HR ER 25 MG TAB.ER.24H. PO SCH (21:00)
[2018-09-11 22:57] VITALS: BP 124/76
[2018-09-12] MEDS: MORPHINE SULFATE 2 MG/ML VIAL. IV PRN (01:06)
[2018-09-12] MEDS: ONDANSETRON PF 4 MG/2 ML VIAL. IV PRN ×3 (01:06→19:17)
[2018-09-12 03:08] VITALS: BP 132/84
[2018-09-12] MEDS: PROCHLORPERAZINE 10 MG/2 ML VIAL. IV PRN ×2 (05:31→14:34)
[2018-09-12] MEDS: HYDROcodone/APAP 5/325MG 1 TAB TABLET PO PRN (06:43)
[2018-09-12 07:00] VITALS: BP 143/87
[2018-09-12] MEDS: PANTOPRAZOLE 40 MG TABLET.DR. PO SCH (07:19)
[2018-09-12] MEDS: ASPIRIN ENTERIC COATED 81 MG TABLET.DR. PO SCH (07:19)
--- NOTE | 2018-09-12 09:09 | PDOC2 ---
UROLOGY CONSULT Date of Consult Date of Consult DATE: 09/12/18 TIME: 08:53 Referring Physician Referring Physician: Dr. Dozier Identification/Chief Complaint Chief Complaint Flank pain and retention Source Source: Caregiver, Chart review, Patient History of Present Illness Reason for Visit: This 73 year old male was admitted for right abd and flank pain. His pain is in his lower central back, 9/10 and goes into his right flank and lower abdomen. It is constant, although it tends to get worse at night when he is laying down. He does have a history of L4-5 Disk surgery. He has had some nausea, but no vomiting. He mentioned to medical team that he has a history of kidney stones and would like to be evaluated for this. He apparently has had stones 8-10 times in his lifetime and most of the time they come out on their own although he did have to have surgery for one of these, he thinks around 5 years ago. He thinks that the stone surgery was done here at [facility] but he doesn't remember the name of the doctor. He is also complaining of some LUTS and nocturia and admits a history of enlarged prostate; he had a KYE a few months ago at [facility] and was told his prostate was enlarged, but that was all. He is not taking any Flomax or other prostate medications but is open to trying this. He denies hematuria or dysuria, but is not sure if he is emptying his bladder completely. Past Medical History Cardiovascular: HTN, [place], Hyperlipidemia Pulmonary: No pertinent hx CENTRAL NERVOUS SYSTEM: Other GI: GERD Heme/Onc: No pertinent hx Hepatobiliary: No pertinent hx Psych: No pertinent hx Musculoskeletal: low back pain, Osteoarthritis Infectious disease: No pertinent hx Renal/: Other Endocrine: No pertinent hx Past Surgical History Past Surgical History: Tonsillectomy, Other (back surgery) Family History Family History: Coronary Artery Disease, Hypertension Social History Quit ALCOHOL: other (quit ) Drugs: None Lives: Alone Current Problem List Problems: (1) Kidney stone Current Medications Current Medications Current Medications Acetaminophen/ Hydrocodone Bitart (Lortab 5/325) 1 tab PRN Q6HRS PRN PO PAIN Last administered on 09/12/18at 06:43; Start 09/11/18 at 17:45 Adenosine (Adenocard) 6 mg 1X ONCE IV ; Start 09/11/18 at 10:15; Stop 09/11/18 at 10:17; Status DC Adenosine (Adenocard) 6 mg STK-MED ONCE IV ; Start 09/11/18 at 10:13; Stop 09/11/18 at 10:14; Status DC Adenosine (Adenocard) 12 mg 1X ONCE IV ; Start 09/11/18 at 10:15; Stop 09/11/18 at 10:17; Status DC Aspirin (Ecotrin) 81 mg DAILY PO Last administered on 09/12/18at 07:19; Start 09/11/18 at 13:00 Info (CONTRAST GIVEN -- Rx MONITORING) 1 each PRN DAILY PRN MC SEE COMMENTS; Start 09/11/18 at 13:30; Stop 09/13/18 at 13:29 Iohexol (Omnipaque 240 Mg/ml) 50 ml 1X ONCE PO Last administered on 09/11/18at 14:40; Start 09/11/18 at 13:15; Stop 09/11/18 at 13:23; Status DC Iohexol (Omnipaque 300 Mg/ml) 75 ml 1X ONCE IV Last administered on 09/11/18at 14:40; Start 09/11/18 at 13:15; Stop 09/11/18 at 13:23; Status DC Metoprolol Succinate (Toprol Xl) 25 mg HS PO ; Start 09/11/18 at 21:00; Stop 09/11/18 at 21:00; Status DC Metoprolol Succinate (Toprol Xl) 50 mg HS PO Last administered on 09/11/18at 20: 47; Start 09/11/18 at 21:00 Morphine Sulfate (Morphine Sulfate) 2 mg PRN Q4HRS PRN IV PAIN Last administered on 09/12/18at 01:06; Start 09/11/18 at 17:45 Ondansetron HCl (Zofran Odt) 4 mg PRN Q6HRS PRN PO NAUSEA/VOMITING Last administered on 09/11/18at 13:19; Start 09/11/18 at 13:00 Ondansetron HCl (Zofran) 4 mg 1X ONCE IV Last administered on 09/11/18at 10:46; Start 09/11/18 at 10:45; Stop 09/11/18 at 10:46; Status DC Ondansetron HCl (Zofran) 4 mg PRN Q6HRS PRN IV NAUSEA/VOMITING Last administered on 09/12/18 08:18; Start 09/11/18 at 15:00 Ondansetron HCl (Zofran) 4 mg STK-MED ONCE .ROUTE ; Start 09/11/18 at 10:46; Stop 09/11/18 at 12:12; Status DC Pantoprazole Sodium (Protonix) 40 mg DAILYAC PO Last administered on 09/12/18 07:19; Start 09/11/18 at 13:00 Potassium Chloride (Klor-Con) 40 meq 1X ONCE PO Last administered on 09/11/18at 13:01; Start 09/11/18 at 11:15; Stop 09/11/18 at 11:16; Status DC Prochlorperazine Edisylate (Compazine) 10 mg PRN Q6HRS PRN IV NAUSEA/VOMITING Last administered on 09/12/18 05:31; Start 09/11/18 at 15:00 Simvastatin (Zocor) 40 mg QHS PO Last administered on 09/11/18at 20:46; Start 09/11/18 at 21:00 Sodium Chloride 1,000 ml @ 100 mls/hr 1X ONCE IV Last administered on 09/11/18at 13:04; Start 09/11/18 at 12:45; Stop 09/11/18 at 22:44; Status DC Sodium Chloride 1,000 ml @ 1,000 mls/hr Q1H IV Last administered on 09/11/18at 10:42; Start 09/11/18 at 10:13; Stop 09/11/18 at 11:12; Status DC Allergies Allergies: Coded Allergies: No Known Drug Allergies (Unverified , 09/08/18) ROS Review Of Systems: CONSTITUTIONAL: No fever or chills EYES: No recent changes SKIN: No rash or itching CARDIOVASCULAR: No chest pain, syncope, palpitations, or edema RESPIRATORY: No SOB or cough GASTROINTESTINAL: + RLQ abdominal pain NEUROLOGICAL: No headaches or weakness ENDOCRINE: No cold or heat intolerance GENITOURINARY: + luts, no hematuria or dysuria MUSCULOSKELETAL: + back pain LYMPHATICS: No enlarged lymph nodes PSYCHIATRIC: No anxiety or depression Physical Exam Physical Exam: General: Pleasant, no acute distress, well groomed Eyes: conjunctiva anicteric, eyes full range of motion ENT: moist oral mucosa, normal dentition Neck: Trachea midline, no masses Respiratory: unlabored breathing, not using accessory muscles, : PVR is 85 via bladder scan. Back: No CVA pain bilaterally Abdomen: + RLQ tenderness nontender. Skin: no rashes or skin lesions on visualized skin Psych: normal mood, affect. Alert and oriented x 3. Vitals VITALS Vital Signs Date Time Temp Pulse Resp B/P (MAP) Pulse Ox O2 Delivery O2 Flow Rate FiO2 09/12/18 07:58 Room Air 09/12/18 06:43 18 94 2.0 09/12/18 03:08 80 132/84 (100) 09/11/18 22:57 98.0 98.0 Labs Labs Laboratory Tests Test 09/11/18 10:06 09/11/18 10:18 09/11/18 10:55 09/11/18 14:05 White Blood Count 7.0 x10^3/uL (4.0-11.0) Red Blood Count 5.21 x10^6/uL (4.30-5.70) Hemoglobin 15.9 g/dL (13.0-17.5) Hematocrit 46.5 % (39.0-53.0) Mean Corpuscular Volume 89 fL (79-100) Mean Corpuscular Hemoglobin 31 pg (25-35) Mean Corpuscular Hemoglobin Concent 34 g/dL (31-37) Red Cell Distribution Width 14.9 % (11.5-14.5) Platelet Count 133 x10^3/uL (140-400) Neutrophils (%) (Auto) 74 % (31-73) Lymphocytes (%) (Auto) 15 % (24-48) Monocytes (%) (Auto) 10 % (0-9) Eosinophils (%) (Auto) 1 % (0-3) Basophils (%) (Auto) 0 % (0-3) Neutrophils # (Auto) 5.1 x10^3uL (1.8-7.7) Lymphocytes # (Auto) 1.0 x10^3/uL (1.0-4.8) Monocytes # (Auto) 0.7 x10^3/uL (0.0-1.1) Eosinophils # (Auto) 0.1 x10^3/uL (0.0-0.7) Basophils # (Auto) 0.0 x10^3/uL (0.0-0.2) D-Dimer (Ana) 1.32 ug/mlFEU (0.00-0.50) Sodium Level 137 mmol/L (136-145) Potassium Level 3.2 mmol/L (3.5-5.1) Chloride Level 98 mmol/L (98-107) Carbon Dioxide Level 31 mmol/L (21-32) Anion Gap 8 (6-14) 18 mmol/L (6-14) Blood Urea Nitrogen 10 mg/dL (8-26) Creatinine 1.0 mg/dL (0.7-1.3) Estimated GFR (Cockcroft-Gault) 72.8 BUN/Creatinine Ratio 10 (6-20) Glucose Level 113 mg/dL (70-99) 109 mg/dL (70-99) Lactic Acid Level 1.2 mmol/L (0.4-2.0) Calcium Level 9.2 mg/dL (8.5-10.1) Magnesium Level 2.1 mg/dL (1.8-2.4) Total Bilirubin 1.2 mg/dL (0.2-1.0) Aspartate Amino Transf (AST/SGOT) 21 U/L (15-37) Alanine Aminotransferase (ALT/SGPT) 13 U/L (16-63) Alkaline Phosphatase 67 U/L (46-116) Creatine Kinase 85 U/L (39-308) Troponin I Quantitative < 0.017 ng/mL (0.000-0.055) 0.042 ng/mL (0.000-0.055) OR-Wxf-L-Type Natriuretic Peptide 965 pg/mL (0-449) Total Protein 7.5 g/dL (6.4-8.2) Albumin 4.1 g/dL (3.4-5.0) Albumin/Globulin Ratio 1.2 (1.0-1.7) Lipase 180 U/L (73-393) Thyroid Stimulating Hormone (TSH) 0.474 uIU/mL (0.358-3.74) Bedside Hemoglobin 16.0 g/dL (14-18) Bedside Hematocrit 47 % (37-52) Bedside Sodium 139 mmol/L (135-145) Bedside Potassium 3.7 mmol/L (3.5-5.0) Bedside Chloride 97 mmol/L (98-110) Bedside Total CO2 28 mmol/L (23-32) Bedside Blood Urea Nitrogen 8 mg/dL (8-26) Bedside Creatinine 0.8 mg/dL (0.5-1.4) Bedside Ionized Calcium (Alyse) 1.12 mmol/L (1.13-1.32) Urine Collection Type Unknown Urine Color Yellow Urine Clarity Clear Urine pH 7.0 Urine Specific [place] 1.010 Urine Protein Negative mg/dL (NEG-TRACE) Urine Glucose (UA) Negative mg/dL (NEG) Urine Ketones (Stick) Negative mg/dL (NEG) Urine Blood Negative (NEG) Urine Nitrite Negative (NEG) Urine Bilirubin Negative (NEG) Urine Urobilinogen Dipstick 0.2 mg/dL (0.2 mg/dL) Urine Leukocyte Esterase Negative (NEG) Urine RBC 0 /HPF (0-2) Urine WBC Occ /HPF (0-4) Urine Bacteria 0 /HPF (0-FEW) Urine Mucus Slight /LPF Test 09/11/18 17:15 Troponin I Quantitative 0.029 ng/mL (0.000-0.055) Laboratory Tests Test 09/11/18 10:06 09/11/18 10:18 09/11/18 10:55 09/11/18 14:05 White Blood Count 7.0 x10^3/uL (4.0-11.0) Red Blood Count 5.21 x10^6/uL (4.30-5.70) Hemoglobin 15.9 g/dL (13.0-17.5) Hematocrit 46.5 % (39.0-53.0) Mean Corpuscular Volume 89 fL (79-100) Mean Corpuscular Hemoglobin 31 pg (25-35) Mean Corpuscular Hemoglobin Concent 34 g/dL (31-37) Red Cell Distribution Width 14.9 % (11.5-14.5) Platelet Count 133 x10^3/uL (140-400) Neutrophils (%) (Auto) 74 % (31-73) Lymphocytes (%) (Auto) 15 % (24-48) Monocytes (%) (Auto) 10 % (0-9) Eosinophils (%) (Auto) 1 % (0-3) Basophils (%) (Auto) 0 % (0-3) Neutrophils # (Auto) 5.1 x10^3uL (1.8-7.7) Lymphocytes # (Auto) 1.0 x10^3/uL (1.0-4.8) Monocytes # (Auto) 0.7 x10^3/uL (0.0-1.1) Eosinophils # (Auto) 0.1 x10^3/uL (0.0-0.7) Basophils # (Auto) 0.0 x10^3/uL (0.0-0.2) D-Dimer (Ana) 1.32 ug/mlFEU (0.00-0.50) Sodium Level 137 mmol/L (136-145) Potassium Level 3.2 mmol/L (3.5-5.1) Chloride Level 98 mmol/L (98-107) Carbon Dioxide Level 31 mmol/L (21-32) Anion Gap 8 (6-14) 18 mmol/L (6-14) Blood Urea Nitrogen 10 mg/dL (8-26) Creatinine 1.0 mg/dL (0.7-1.3) Estimated GFR (Cockcroft-Gault) 72.8 BUN/Creatinine Ratio 10 (6-20) Glucose Level 113 mg/dL (70-99) 109 mg/dL (70-99) Lactic Acid Level 1.2 mmol/L (0.4-2.0) Calcium Level 9.2 mg/dL (8.5-10.1) Magnesium Level 2.1 mg/dL (1.8-2.4) Total Bilirubin 1.2 mg/dL (0.2-1.0) Aspartate Amino Transf (AST/SGOT) 21 U/L (15-37) Alanine Aminotransferase (ALT/SGPT) 13 U/L (16-63) Alkaline Phosphatase 67 U/L (46-116) Creatine Kinase 85 U/L (39-308) Troponin I Quantitative < 0.017 ng/mL (0.000-0.055) 0.042 ng/mL (0.000-0.055) QR-Otd-N-Type Natriuretic Peptide 965 pg/mL (0-449) Total Protein 7.5 g/dL (6.4-8.2) Albumin 4.1 g/dL (3.4-5.0) Albumin/Globulin Ratio 1.2 (1.0-1.7) Lipase 180 U/L (73-393) Thyroid Stimulating Hormone (TSH) 0.474 uIU/mL (0.358-3.74) Bedside Hemoglobin 16.0 g/dL (14-18) Bedside Hematocrit 47 % (37-52) Bedside Sodium 139 mmol/L (135-145) Bedside Potassium 3.7 mmol/L (3.5-5.0) Bedside Chloride 97 mmol/L (98-110) Bedside Total CO2 28 mmol/L (23-32) Bedside Blood Urea Nitrogen 8 mg/dL (8-26) Bedside Creatinine 0.8 mg/dL (0.5-1.4) Bedside Ionized Calcium (Alyse) 1.12 mmol/L (1.13-1.32) Urine Collection Type Unknown Urine Color Yellow Urine Clarity Clear Urine pH 7.0 Urine Specific [place] 1.010 Urine Protein Negative mg/dL (NEG-TRACE) Urine Glucose (UA) Negative mg/dL (NEG) Urine Ketones (Stick) Negative mg/dL (NEG) Urine Blood Negative (NEG) Urine Nitrite Negative (NEG) Urine Bilirubin Negative (NEG) Urine Urobilinogen Dipstick 0.2 mg/dL (0.2 mg/dL) Urine Leukocyte Esterase Negative (NEG) Urine RBC 0 /HPF (0-2) Urine WBC Occ /HPF (0-4) Urine Bacteria 0 /HPF (0-FEW) Urine Mucus Slight /LPF Test 09/11/18 17:15 Troponin I Quantitative 0.029 ng/mL (0.000-0.055) Images Images IMPRESSION: 1. Renal and hepatic cysts. 2. Mild nonspecific prostatic enlargement. 3. Dilated inguinal rings without evidence of bowel herniation. 4. No acute abdominal or pelvic abnormality is detected. Assessment/Plan Assessment/Plan There are no visible kidney stones on CT scan. However, because of patient's history and extreme concern for this, we will have Dr. Salcedo review CT scan and will draw MENAGERIE SUPERINTENDENT/BUN to further evaluate PVR is 85=no retention. However, due to his LUTS and nocturia we will start patient on Flomax. Dr. Salcedo to round on patient later today. LEONARDO FISH APRN September 12, 2018 09:08
[2018-09-12] MEDS ORDERED: TAMSULOSIN 0.4 MG CAP.ER.24H. PO SCH (10:00)
--- NOTE | 2018-09-12 10:24 | PDOC ---
[employer] LIBRARY CLERK 09/12/18 1024: CARDIO Progress Notes Date and Time Date of Service 09/12/2018 Time of Evaluation 1000 Subjective Subjective: No Chest Pain, No shortness of breath, No Palpitations, Other (complains of right abd and flank pain) Vitals Vitals Vital Signs Date Time Temp Pulse Resp B/P (MAP) Pulse Ox O2 Delivery O2 Flow Rate FiO2 09/12/18 07:58 Room Air 09/12/18 07:00 98.4 101 18 143/87 (105) 94 98.4 09/12/18 06:43 2.0 Weight Weight [ ] Input and Output Intake and Output Intake and Output 09/12/18 07:00 Output Total 1201 ml Balance -1201 ml Output Urine Total 1200 ml Stool Total 1 ml Laboratory Labs Laboratory Tests Test 09/11/18 10:55 09/11/18 14:05 09/11/18 17:15 Urine Collection Type Unknown Urine Color Yellow Urine Clarity Clear Urine pH 7.0 Urine Specific [place] 1.010 Urine Protein Negative mg/dL (NEG-TRACE) Urine Glucose (UA) Negative mg/dL (NEG) Urine Ketones (Stick) Negative mg/dL (NEG) Urine Blood Negative (NEG) Urine Nitrite Negative (NEG) Urine Bilirubin Negative (NEG) Urine Urobilinogen Dipstick 0.2 mg/dL (0.2 mg/dL) Urine Leukocyte Esterase Negative (NEG) Urine RBC 0 /HPF (0-2) Urine WBC Occ /HPF (0-4) Urine Bacteria 0 /HPF (0-FEW) Urine Mucus Slight /LPF Troponin I Quantitative 0.042 ng/mL (0.000-0.055) 0.029 ng/mL (0.000-0.055) Physical Exam HEENT: Neck Supple W Full Motion Chest: Symmetric LUNGS: Clear to Auscultation Heart: S1S2, RRR (SR), no murmurs Abdomen: Soft N/T Extremities: No Calf Tenderness Neurology: alert, oriented, follow commands Assessment Assessment 1. PSVT; on Toprol for rate control. Cardiac ablation has been recommended in past, but patient deferred. Outpatient monitor recommended 08/2018 at due to high PVC burden, but patient declined. 2. Abdominal pain, nausea/vomiting. Recent scope unrevealing. CT abdomen/pelvic pending 3. CAD s/p PCI/stent to RCA. Stable. CP free. Recent echo with preserved LV systolic function. Patient declined stress test last month as [facility] per record review. Cath 10/2016 with patent stent as noted above. 4. Hypertension; mildly elevated 5. Hyperlipidemia; statin 6. Noncompliance 7. Abd/ right flank pain: urology following Recommendations Presently SR without signficant ectopies. Continue with toprol and follow up with [facility] cardiology Secondary prevention. ASA, statin therapy. Consider outpatient ischemic evaluation and event monitor to note arrhythmia burden if patient would agree/comply. Encourage compliance Supportive care. ELSIE TORRES MD 09/13/18 0903: CARDIO Progress Notes Assessment Assessment Patient seen and examined 09/12/18. Agree with VASCULAR SONOGRAPHER's assessment and plan. Telemetry did not show any further episodes of SVT Plan outpatient ischemic evaluation an event monitor TERRY PUENTE APRN September 12, 2018 10:24 ELSIE TORRES MD September 13, 2018 09:03
[2018-09-12 11:00] VITALS: BP 147/83
--- NOTE | 2018-09-12 11:04 | PDOC ---
PROGRESS NOTES Chief Complaint Chief Complaint RLQ pain/R flank pain nephrolithiasis L renal cyst GERD HLD HTN OA hx of MD Prior back surgery History of Present Illness History of Present Illness Patient seen and examined States pain is very specific point in RLQ, no diffuse tenderness, and wraps around to his flank States Mucous in last stool which was Tuesday09/09/18 The pain has been there for months and has progressively gotten worse Patient states he was just told he had kidney stones and an enlarged prostate by [facility] Discussed with nurse Discussed with urologist Vitals Vitals Vital Signs Date Time Temp Pulse Resp B/P (MAP) Pulse Ox O2 Delivery O2 Flow Rate FiO2 09/12/18 07:58 Room Air 09/12/18 07:00 98.4 101 18 143/87 (105) 94 98.4 09/12/18 06:43 2.0 Physical Exam General: Alert, Oriented X3, Cooperative, No acute distress Heart: Normal S1, Normal S2, Other (2/6 systolic murmur, Tachycardia) Lungs: Clear Abdomen: Normal bowel sounds, Soft, No hepatosplenomegaly, No masses, Other (RLQ point tenderness to deep palpation, no diffuse tenderness) Extremities: No clubbing, No cyanosis, No edema, Normal pulses Skin: No rashes, No breakdown, No significant lesion Labs LABS Laboratory Tests Test 09/11/18 10:55 09/11/18 14:05 09/11/18 17:15 Urine Collection Type Unknown Urine Color Yellow Urine Clarity Clear Urine pH 7.0 Urine Specific Mullins 1.010 Urine Protein Negative mg/dL (NEG-TRACE) Urine Glucose (UA) Negative mg/dL (NEG) Urine Ketones (Stick) Negative mg/dL (NEG) Urine Blood Negative (NEG) Urine Nitrite Negative (NEG) Urine Bilirubin Negative (NEG) Urine Urobilinogen Dipstick 0.2 mg/dL (0.2 mg/dL) Urine Leukocyte Esterase Negative (NEG) Urine RBC 0 /HPF (0-2) Urine WBC Occ /HPF (0-4) Urine Bacteria 0 /HPF (0-FEW) Urine Mucus Slight /LPF Troponin I Quantitative 0.042 ng/mL (0.000-0.055) 0.029 ng/mL (0.000-0.055) Review of Systems Review of Systems Patient admits to: Dizziness Nausea Mucous in stool (referred to it as puss but stated it was mucous when asked to clarify) Denies TAO Assessment and Plan Assessmemt and Plan Problems Medical Problems: (1) Hypokalemia Status: Acute Assessment: RLQ pain/R flank pain nephrolithiasis L renal cyst GERD HLD HTN OA hx of MD Prior back surgery Plan: Cardiac monitoring PRN morphine and Lortab for pain Home meds Labs PT/OT DVT ppx Full code Cardiology, GI, and Urology consulted Comment Review of Relevant I have reviewed the following items jensen (where applicable) has been applied. Labs Laboratory Tests Test 09/11/18 10:06 09/11/18 10:18 09/11/18 10:55 09/11/18 14:05 White Blood Count 7.0 x10^3/uL (4.0-11.0) Red Blood Count 5.21 x10^6/uL (4.30-5.70) Hemoglobin 15.9 g/dL (13.0-17.5) Hematocrit 46.5 % (39.0-53.0) Mean Corpuscular Volume 89 fL (79-100) Mean Corpuscular Hemoglobin 31 pg (25-35) Mean Corpuscular Hemoglobin Concent 34 g/dL (31-37) Red Cell Distribution Width 14.9 % (11.5-14.5) Platelet Count 133 x10^3/uL (140-400) Neutrophils (%) (Auto) 74 % (31-73) Lymphocytes (%) (Auto) 15 % (24-48) Monocytes (%) (Auto) 10 % (0-9) Eosinophils (%) (Auto) 1 % (0-3) Basophils (%) (Auto) 0 % (0-3) Neutrophils # (Auto) 5.1 x10^3uL (1.8-7.7) Lymphocytes # (Auto) 1.0 x10^3/uL (1.0-4.8) Monocytes # (Auto) 0.7 x10^3/uL (0.0-1.1) Eosinophils # (Auto) 0.1 x10^3/uL (0.0-0.7) Basophils # (Auto) 0.0 x10^3/uL (0.0-0.2) D-Dimer (Ana) 1.32 ug/mlFEU (0.00-0.50) Sodium Level 137 mmol/L (136-145) Potassium Level 3.2 mmol/L (3.5-5.1) Chloride Level 98 mmol/L (98-107) Carbon Dioxide Level 31 mmol/L (21-32) Anion Gap 8 (6-14) 18 mmol/L (6-14) Blood Urea Nitrogen 10 mg/dL (8-26) Creatinine 1.0 mg/dL (0.7-1.3) Estimated GFR (Cockcroft-Gault) 72.8 BUN/Creatinine Ratio 10 (6-20) Glucose Level 113 mg/dL (70-99) 109 mg/dL (70-99) Lactic Acid Level 1.2 mmol/L (0.4-2.0) Calcium Level 9.2 mg/dL (8.5-10.1) Magnesium Level 2.1 mg/dL (1.8-2.4) Total Bilirubin 1.2 mg/dL (0.2-1.0) Aspartate Amino Transf (AST/SGOT) 21 U/L (15-37) Alanine Aminotransferase (ALT/SGPT) 13 U/L (16-63) Alkaline Phosphatase 67 U/L (46-116) Creatine Kinase 85 U/L (39-308) Troponin I Quantitative < 0.017 ng/mL (0.000-0.055) 0.042 ng/mL (0.000-0.055) FB-Slo-W-Type Natriuretic Peptide 965 pg/mL (0-449) Total Protein 7.5 g/dL (6.4-8.2) Albumin 4.1 g/dL (3.4-5.0) Albumin/Globulin Ratio 1.2 (1.0-1.7) Lipase 180 U/L (73-393) Thyroid Stimulating Hormone (TSH) 0.474 uIU/mL (0.358-3.74) Bedside Hemoglobin 16.0 g/dL (14-18) Bedside Hematocrit 47 % (37-52) Bedside Sodium 139 mmol/L (135-145) Bedside Potassium 3.7 mmol/L (3.5-5.0) Bedside Chloride 97 mmol/L (98-110) Bedside Total CO2 28 mmol/L (23-32) Bedside Blood Urea Nitrogen 8 mg/dL (8-26) Bedside Creatinine 0.8 mg/dL (0.5-1.4) Bedside Ionized Calcium (Alyse) 1.12 mmol/L (1.13-1.32) Urine Collection Type Unknown Urine Color Yellow Urine Clarity Clear Urine pH 7.0 Urine Specific Mullins 1.010 Urine Protein Negative mg/dL (NEG-TRACE) Urine Glucose (UA) Negative mg/dL (NEG) Urine Ketones (Stick) Negative mg/dL (NEG) Urine Blood Negative (NEG) Urine Nitrite Negative (NEG) Urine Bilirubin Negative (NEG) Urine Urobilinogen Dipstick 0.2 mg/dL (0.2 mg/dL) Urine Leukocyte Esterase Negative (NEG) Urine RBC 0 /HPF (0-2) Urine WBC Occ /HPF (0-4) Urine Bacteria 0 /HPF (0-FEW) Urine Mucus Slight /LPF Test 09/11/18 17:15 Troponin I Quantitative 0.029 ng/mL (0.000-0.055) Laboratory Tests Test 09/11/18 10:55 09/11/18 14:05 09/11/18 17:15 Urine Collection Type Unknown Urine Color Yellow Urine Clarity Clear Urine pH 7.0 Urine Specific Mullins 1.010 Urine Protein Negative mg/dL (NEG-TRACE) Urine Glucose (UA) Negative mg/dL (NEG) Urine Ketones (Stick) Negative mg/dL (NEG) Urine Blood Negative (NEG) Urine Nitrite Negative (NEG) Urine Bilirubin Negative (NEG) Urine Urobilinogen Dipstick 0.2 mg/dL (0.2 mg/dL) Urine Leukocyte Esterase Negative (NEG) Urine RBC 0 /HPF (0-2) Urine WBC Occ /HPF (0-4) Urine Bacteria 0 /HPF (0-FEW) Urine Mucus Slight /LPF Troponin I Quantitative 0.042 ng/mL (0.000-0.055) 0.029 ng/mL (0.000-0.055) Medications Current Medications Adenosine (Adenocard) 6 mg STK-MED ONCE IV ; Start 09/11/18 at 10:13; Stop 09/11/18 at 10:14; Status DC Adenosine (Adenocard) 12 mg 1X ONCE IV ; Start 09/11/18 at 10:15; Stop 09/11/18 at 10:17; Status DC Sodium Chloride 1,000 ml @ 1,000 mls/hr Q1H IV Last administered on 09/11/18at 10:42; Start 09/11/18 at 10:13; Stop 09/11/18 at 11:12; Status DC Adenosine (Adenocard) 6 mg 1X ONCE IV ; Start 09/11/18 at 10:15; Stop 09/11/18 at 10:17; Status DC Ondansetron HCl (Zofran) 4 mg 1X ONCE IV Last administered on 09/11/18at 10:46; Start 09/11/18 at 10:45; Stop 09/11/18 at 10:46; Status DC Potassium Chloride (Klor-Con) 40 meq 1X ONCE PO Last administered on 09/11/18at 13:01; Start 09/11/18 at 11:15; Stop 09/11/18 at 11:16; Status DC Aspirin (Ecotrin) 81 mg DAILY PO Last administered on 09/12/18at 07:19; Start 09/11/18 at 13:00 Metoprolol Succinate (Toprol Xl) 25 mg HS PO ; Start 09/11/18 at 21:00; Stop 09/11/18 at 21:00; Status DC Ondansetron HCl (Zofran Odt) 4 mg PRN Q6HRS PRN PO NAUSEA/VOMITING Last administered on 09/11/18 13:19; Start 09/11/18 at 13:00 Pantoprazole Sodium (Protonix) 40 mg DAILYAC PO Last administered on 09/12/18at 07:19; Start 09/11/18 at 13:00 Simvastatin (Zocor) 40 mg QHS PO Last administered on 09/11/18at 20:46; Start 09/11/18 at 21:00 Ondansetron HCl (Zofran) 4 mg STK-MED ONCE .ROUTE ; Start 09/11/18 at 10:46; Stop 09/11/18 at 12:12; Status DC Sodium Chloride 1,000 ml @ 100 mls/hr 1X ONCE IV Last administered on 09/11/18at 13:04; Start 09/11/18 at 12:45; Stop 09/11/18 at 22:44; Status DC Iohexol (Omnipaque 240 Mg/ml) 50 ml 1X ONCE PO Last administered on 09/11/18at 14:40; Start 09/11/18 at 13:15; Stop 09/11/18 at 13:23; Status DC Iohexol (Omnipaque 300 Mg/ml) 75 ml 1X ONCE IV Last administered on 09/11/18at 14:40; Start 09/11/18 at 13:15; Stop 09/11/18 at 13:23; Status DC Info (CONTRAST GIVEN -- Rx MONITORING) 1 each PRN DAILY PRN MC SEE COMMENTS; Start 09/11/18 at 13:30; Stop 09/13/18 at 13:29 Ondansetron HCl (Zofran) 4 mg PRN Q6HRS PRN IV NAUSEA/VOMITING Last administered on 09/12/18at 08:18; Start 09/11/18 at 15:00 Prochlorperazine Edisylate (Compazine) 10 mg PRN Q6HRS PRN IV NAUSEA/VOMITING Last administered on 09/12/18at 05:31; Start 09/11/18 at 15:00 Metoprolol Succinate (Toprol Xl) 50 mg HS PO Last administered on 09/11/18at 20:47; Start 09/11/18 at 21:00 Morphine Sulfate (Morphine Sulfate) 2 mg PRN Q4HRS PRN IV PAIN Last administered on 09/12/18at 01:06; Start 09/11/18 at 17:45 Acetaminophen/ Hydrocodone Bitart (Lortab 5/325) 1 tab PRN Q6HRS PRN PO PAIN Last administered on 09/12/18at 06:43; Start 09/11/18 at 17:45 Tamsulosin HCl (Flomax) 0.4 mg DAILY PO ; Start 09/12/18 at 10:00; Stop 09/12/18 at 10:37; Status DC Polyethylene Glycol (miraLAX PACKET) 17 gm PRN DAILY PRN PO CONSTIPATION; Start 09/12/18 at 09:15 Ketorolac Tromethamine (Toradol 30mg Vial) 30 mg PRN Q6HRS PRN IV PAIN; Start 09/12/18 at 10:15; Stop 09/17/18 at 10:14 Active Scripts Active Ondansetron Odt (Ondansetron) 4 Mg Tab.rapdis 1 Tab PO PRN Q6-8HRS Protonix (Pantoprazole Sodium) 40 Mg Tablet.dr 1 Tab PO DAILY Reported Zocor (Simvastatin) 40 Mg Tablet 40 Mg PO HS Toprol Xl (Metoprolol Succinate) 25 Mg Tab.er.24h 25 Mg PO HS Aspir 81 (Aspirin) 81 Mg Tablet.dr 81 Mg PO DAILY Vitals/I & O Vital Sign - Last 24 Hours 09/11/18 09/11/18 09/11/18 09/11/18 11:42 12:00 15:00 18:04 Temp 97.6 97.9 97.6 97.9 Pulse 78 83 Resp 18 18 B/P (MAP) 155/77 (103) 158/89 (112) Pulse Ox 96 96 O2 Delivery Room Air Room Air Room Air Room Air 09/11/18 09/11/18 09/11/18 09/11/18 19:47 20:00 20:47 20:49 Temp 97.6 97.6 Pulse 85 85 Resp 18 18 B/P (MAP) 146/91 (109) 146/91 Pulse Ox 95 95 O2 Delivery Room Air Room Air Room Air O2 Flow Rate 2.0 2.0 09/11/18 09/11/18 09/12/18 09/12/18 21:49 22:57 01:06 01:36 Temp 98.0 98.0 Pulse 72 Resp 18 18 18 18 B/P (MAP) 124/76 (92) Pulse Ox 96 96 96 96 O2 Delivery Room Air Room Air Room Air O2 Flow Rate 2.0 2.0 2.0 09/12/18 09/12/18 09/12/18 09/12/18 03:08 06:43 07:00 07:43 Temp 98.4 98.4 Pulse 80 101 Resp 20 18 18 B/P (MAP) 132/84 (100) 143/87 (105) Pulse Ox 94 94 94 O2 Delivery Room Air Room Air Room Air Room Air O2 Flow Rate 2.0 09/12/18 07:58 O2 Delivery Room Air Intake and Output 09/11/18 09/11/18 09/12/18 14:59 22:59 06:59 Output Total 500 ml 701 ml Balance -500 ml -701 ml TITO DESAI III DO September 12, 2018 11:03
[2018-09-12] MEDS: POLYETHYLENE GLYCOL 3350 17 GM PACKET. PO PRN (11:23)
[2018-09-12] MEDS: MECLIZINE HCL 12.5 MG TABLET. PO PRN (11:23)
[2018-09-12 11:42] LABS: ALBUMIN 3.7 g/dL (3.4-5.0); ALBUMIN/GLOBULIN RATIO 1.3 (1.0-1.7); CALCIUM 8.8 mg/dL (8.5-10.1); CREATININE 0.9 mg/dL (0.7-1.3); GFR 82.3; POTASSIUM 3.7 mmol/L (3.5-5.1); TOTAL BILIRUBIN 1.5 mg/dL (0.2-1.0); TOTAL PROTEIN 6.6 g/dL (6.4-8.2)
[2018-09-12] MEDS: KETOROLAC 30 MG/ML VIAL. IV PRN (14:33)
--- NOTE | 2018-09-12 14:33 | PDOC ---
Subjective: Subjective: Nausea, dizziness, feels urge to stool but can't, RUQ discomfort under rib. Needs something "real bad right now" for nausea and "make sure I get an enema." Objective: Objective: Reviewed w/ RN - asking for a lot of meds, nothing really seems to help nausea, etc. Urology saw, no recs. Pathology noted from colonoscopy - adenomatous polyps. Vital Signs: Vital Signs Date Time Temp Pulse Resp B/P (MAP) Pulse Ox O2 Delivery O2 Flow Rate FiO2 09/12/18 11:00 98.1 101 18 147/83 (104) 95 Room Air 98.1 09/12/18 06:43 2.0 Labs: Laboratory Tests Test 09/11/18 17:15 09/12/18 11:03 Troponin I Quantitative 0.029 ng/mL Sodium Level 134 mmol/L Potassium Level 3.7 mmol/L Chloride Level 100 mmol/L Carbon Dioxide Level 27 mmol/L Anion Gap 7 Blood Urea Nitrogen 8 mg/dL Creatinine 0.9 mg/dL Estimated GFR (Cockcroft-Gault) 82.3 BUN/Creatinine Ratio 9 Glucose Level 137 mg/dL Calcium Level 8.8 mg/dL Total Bilirubin 1.5 mg/dL Aspartate Amino Transf (AST/SGOT) 20 U/L Alanine Aminotransferase (ALT/SGPT) 14 U/L Alkaline Phosphatase 63 U/L Total Protein 6.6 g/dL Albumin 3.7 g/dL Albumin/Globulin Ratio 1.3 Imaging: CT A/P There is minimal streaky atelectasis or scarring posteriorly in the lung bases. Moderate coronary artery calcifications are present. The liver demonstrates an unusual configuration with bowel loops extending along its anterior aspect of the to the level of the right diaphragm. There are 2 cysts in the superior aspect of the liver. There is no evidence of bile duct dilatation. The gallbladder is unremarkable. No pancreatic abnormality is seen. The spleen is of normal size. There are several simple cysts in both kidneys. The kidneys show no evidence of obstruction. There is mild aortoiliac calcific plaquing without evidence of aneurysm. No abdominal or pelvic adenopathy is seen. The prostate gland is mildly enlarged. The bowel loops are not dilated. The appendix is well visualized. It contains a tiny radiopacity. The appendix is not enlarged and there is no pericholecystic edema. The inguinal rings are mildly dilated without evidence of bowel herniation. No free fluid or free air is evident in the abdomen or pelvis. Both inguinal rings are mildly dilated. No bowel herniation is evident. IMPRESSION: 1. Renal and hepatic cysts. 2. Mild nonspecific prostatic enlargement. 3. Dilated inguinal rings without evidence of bowel herniation. 4. No acute abdominal or pelvic abnormality is detected. PE: GEN: NAD, in chair LUNGS: tachypneic HEART: tachycardic ABD: pinpoint tenderness under right ribs NEURO/PSYCH: A & O 3, anxious A/P: Right-sided pain, nausea, dizziness PSVT, anxiety -- Ddx per Dr. Gonzalez: adhesions, IBD, partial SBO, malrotation, Meckel's diverticulitis and recommends surgical consult re: CT findings as above. Will order enema per his request. Will review w/ Dr. Gonzalez re: any need for additional imaging, etc. JORDON RODARTE September 12, 2018 14:33
[2018-09-12] MEDS ORDERED: SODIUM PHOSPHATES 19/7GM 133 ML ENEMA. PR ONE (14:45)
[2018-09-12 15:00] VITALS: BP 159/77
--- NOTE | 2018-09-12 15:56 | PDOC2 ---
CONSULT Date of Consult Date of Consult DATE: 09/12/18 TIME: 15:46 Reason for Consult Reason for Consult: Chilaiditi syndrome Referring Physician Referring Physician: Propeck Identification/Chief Complaint Chief Complaint RUQ abd pain, constipation, melanotic/mucous stool Source Source: Chart review, Patient History of Present Illness Reason for Visit: 73 yo M with 2 month hx of RUQ abd pain with radiation to his back. Notes constipation with associated nausea, no emesis. Has noted mucous stool with tarry nature. Recent colonoscopy with polyps, but no other abnormality. Urology consult unremarkable. Also c/o light headed and weak from not eating well. Previously told had liver issues (fatty liver), but appears to have improved with diet. Past Medical History Cardiovascular: HTN, NH, Hyperlipidemia Pulmonary: No pertinent hx CENTRAL NERVOUS SYSTEM: Other GI: GERD Heme/Onc: No pertinent hx Hepatobiliary: No pertinent hx Psych: No pertinent hx Musculoskeletal: low back pain, Osteoarthritis Infectious disease: No pertinent hx Renal/: Other Endocrine: No pertinent hx Past Surgical History Past Surgical History: Tonsillectomy, Other (back surgery) Family History Family History: Coronary Artery Disease, Hypertension Social History Quit ALCOHOL: other (quit ) Drugs: None Lives: Alone Current Problem List Problem List Problems Medical Problems: (1) Hypokalemia Status: Acute Current Medications Current Medications Current Medications Adenosine (Adenocard) 6 mg STK-MED ONCE IV ; Start 09/11/18 at 10:13; Stop 09/11/18 at 10:14; Status DC Adenosine (Adenocard) 12 mg 1X ONCE IV ; Start 09/11/18 at 10:15; Stop 09/11/18 at 10:17; Status DC Sodium Chloride 1,000 ml @ 1,000 mls/hr Q1H IV Last administered on 09/11/18at 10:42; Start 09/11/18 at 10:13; Stop 09/11/18 at 11:12; Status DC Adenosine (Adenocard) 6 mg 1X ONCE IV ; Start 09/11/18 at 10:15; Stop 09/11/18 at 10:17; Status DC Ondansetron HCl (Zofran) 4 mg 1X ONCE IV Last administered on 09/11/18at 10:46; Start 09/11/18 at 10:45; Stop 09/11/18 at 10:46; Status DC Potassium Chloride (Klor-Con) 40 meq 1X ONCE PO Last administered on 09/11/18at 13:01; Start 09/11/18 at 11:15; Stop 09/11/18 at 11:16; Status DC Aspirin (Ecotrin) 81 mg DAILY PO Last administered on 09/12/18at 07:19; Start 09/11/18 at 13:00 Metoprolol Succinate (Toprol Xl) 25 mg HS PO ; Start 09/11/18 at 21:00; Stop 09/11/18 at 21:00; Status DC Ondansetron HCl (Zofran Odt) 4 mg PRN Q6HRS PRN PO NAUSEA/VOMITING Last administered on 09/11/18 13:19; Start 09/11/18 at 13:00 Pantoprazole Sodium (Protonix) 40 mg DAILYAC PO Last administered on 09/12/18at 07:19; Start 09/11/18 at 13:00 Simvastatin (Zocor) 40 mg QHS PO Last administered on 09/11/18at 20:46; Start 09/11/18 at 21:00 Ondansetron HCl (Zofran) 4 mg STK-MED ONCE .ROUTE ; Start 09/11/18 at 10:46; Stop 09/11/18 at 12:12; Status DC Sodium Chloride 1,000 ml @ 100 mls/hr 1X ONCE IV Last administered on 09/11/18at 13:04; Start 09/11/18 at 12:45; Stop 09/11/18 at 22:44; Status DC Iohexol (Omnipaque 240 Mg/ml) 50 ml 1X ONCE PO Last administered on 09/11/18at 14:40; Start 09/11/18 at 13:15; Stop 09/11/18 at 13:23; Status DC Iohexol (Omnipaque 300 Mg/ml) 75 ml 1X ONCE IV Last administered on 09/11/18at 14:40; Start 09/11/18 at 13:15; Stop 09/11/18 at 13:23; Status DC Info (CONTRAST GIVEN -- Rx MONITORING) 1 each PRN DAILY PRN MC SEE COMMENTS; Start 09/11/18 at 13:30; Stop 09/13/18 at 13:29 Ondansetron HCl (Zofran) 4 mg PRN Q6HRS PRN IV NAUSEA/VOMITING 1ST CHOICE Last administered on 09/12/18 08:18; Start 09/11/18 at 15:00 Prochlorperazine Edisylate (Compazine) 10 mg PRN Q6HRS PRN IV NAUSEA/VOMITING 2ND CHOICE Last administered on 09/12/18 14:34; Start 09/11/18 at 15:00 Metoprolol Succinate (Toprol Xl) 50 mg HS PO Last administered on 09/11/18 20:47; Start 09/11/18 at 21:00 Morphine Sulfate (Morphine Sulfate) 2 mg PRN Q4HRS PRN IV PAIN Last administered on 09/12/18 01:06; Start 09/11/18 at 17:45 Acetaminophen/ Hydrocodone Bitart (Lortab 5/325) 1 tab PRN Q6HRS PRN PO PAIN Last administered on 09/12/18 06:43; Start 09/11/18 at 17:45 Tamsulosin HCl (Flomax) 0.4 mg DAILY PO ; Start 09/12/18 at 10:00; Stop 09/12/18 at 10:37; Status DC Polyethylene Glycol (miraLAX PACKET) 17 gm PRN DAILY PRN PO CONSTIPATION Last administered on 09/12/18 11:23; Start 09/12/18 at 09:15 Ketorolac Tromethamine (Toradol 30mg Vial) 30 mg PRN Q6HRS PRN IV PAIN Last administered on 09/12/18 14:33; Start 09/12/18 at 10:15; Stop 09/17/18 at 10:14 Meclizine HCl (Antivert) 12.5 mg PRN Q6HRS PRN PO DIZZINESS Last administered on 09/12/18 11:23; Start 09/12/18 at 11:15 Sodium Monofluorophosphate (Fleet Adult) 133 ml 1X ONCE DC ; Start 09/12/18 at 14:45; Stop 09/12/18 at 14:46; Status DC Active Scripts Active Ondansetron Odt (Ondansetron) 4 Mg Tab.rapdis 1 Tab PO PRN Q6-8HRS Protonix (Pantoprazole Sodium) 40 Mg Tablet.dr 1 Tab PO DAILY Reported Zocor (Simvastatin) 40 Mg Tablet 40 Mg PO HS Toprol Xl (Metoprolol Succinate) 25 Mg Tab.er.24h 25 Mg PO HS Aspir 81 (Aspirin) 81 Mg Tablet.dr 81 Mg PO DAILY Allergies Allergies: Coded Allergies: No Known Drug Allergies (Unverified , 09/08/18) ROS General: YES: Fatigue, Appetite Gastrointestinal: Yes Nausea, Yes Abdominal Pain, Yes Constipation, Yes Melena Physical Exam General: Alert, Oriented X3, Cooperative, mild distress HEENT: Atraumatic Lungs: Normal air movement Abdomen: Soft, Other (no peritoneal signs, TTP RUQ, no masses, no hernias) Extremities: No clubbing, No cyanosis Skin: No rashes, No breakdown Neuro: Normal speech, Sensation intact Psych/Mental Status: Mental status NL, Mood NL Vitals VITALS Vital Signs Date Time Temp Pulse Resp B/P (MAP) Pulse Ox O2 Delivery O2 Flow Rate FiO2 09/12/18 11:00 98.1 101 18 147/83 (104) 95 Room Air 98.1 09/12/18 06:43 2.0 Labs Labs Laboratory Tests Test 09/11/18 10:06 09/11/18 10:18 09/11/18 10:55 09/11/18 14:05 White Blood Count 7.0 x10^3/uL (4.0-11.0) Red Blood Count 5.21 x10^6/uL (4.30-5.70) Hemoglobin 15.9 g/dL (13.0-17.5) Hematocrit 46.5 % (39.0-53.0) Mean Corpuscular Volume 89 fL (79-100) Mean Corpuscular Hemoglobin 31 pg (25-35) Mean Corpuscular Hemoglobin Concent 34 g/dL (31-37) Red Cell Distribution Width 14.9 % (11.5-14.5) Platelet Count 133 x10^3/uL (140-400) Neutrophils (%) (Auto) 74 % (31-73) Lymphocytes (%) (Auto) 15 % (24-48) Monocytes (%) (Auto) 10 % (0-9) Eosinophils (%) (Auto) 1 % (0-3) Basophils (%) (Auto) 0 % (0-3) Neutrophils # (Auto) 5.1 x10^3uL (1.8-7.7) Lymphocytes # (Auto) 1.0 x10^3/uL (1.0-4.8) Monocytes # (Auto) 0.7 x10^3/uL (0.0-1.1) Eosinophils # (Auto) 0.1 x10^3/uL (0.0-0.7) Basophils # (Auto) 0.0 x10^3/uL (0.0-0.2) D-Dimer (Ana) 1.32 ug/mlFEU (0.00-0.50) Sodium Level 137 mmol/L (136-145) Potassium Level 3.2 mmol/L (3.5-5.1) Chloride Level 98 mmol/L (98-107) Carbon Dioxide Level 31 mmol/L (21-32) Anion Gap 8 (6-14) 18 mmol/L (6-14) Blood Urea Nitrogen 10 mg/dL (8-26) Creatinine 1.0 mg/dL (0.7-1.3) Estimated GFR (Cockcroft-Gault) 72.8 BUN/Creatinine Ratio 10 (6-20) Glucose Level 113 mg/dL (70-99) 109 mg/dL (70-99) Lactic Acid Level 1.2 mmol/L (0.4-2.0) Calcium Level 9.2 mg/dL (8.5-10.1) Magnesium Level 2.1 mg/dL (1.8-2.4) Total Bilirubin 1.2 mg/dL (0.2-1.0) Aspartate Amino Transf (AST/SGOT) 21 U/L (15-37) Alanine Aminotransferase (ALT/SGPT) 13 U/L (16-63) Alkaline Phosphatase 67 U/L (46-116) Creatine Kinase 85 U/L (39-308) Troponin I Quantitative < 0.017 ng/mL (0.000-0.055) 0.042 ng/mL (0.000-0.055) LG-Ecc-H-Type Natriuretic Peptide 965 pg/mL (0-449) Total Protein 7.5 g/dL (6.4-8.2) Albumin 4.1 g/dL (3.4-5.0) Albumin/Globulin Ratio 1.2 (1.0-1.7) Lipase 180 U/L (73-393) Thyroid Stimulating Hormone (TSH) 0.474 uIU/mL (0.358-3.74) Bedside Hemoglobin 16.0 g/dL (14-18) Bedside Hematocrit 47 % (37-52) Bedside Sodium 139 mmol/L (135-145) Bedside Potassium 3.7 mmol/L (3.5-5.0) Bedside Chloride 97 mmol/L (98-110) Bedside Total CO2 28 mmol/L (23-32) Bedside Blood Urea Nitrogen 8 mg/dL (8-26) Bedside Creatinine 0.8 mg/dL (0.5-1.4) Bedside Ionized Calcium (Alyse) 1.12 mmol/L (1.13-1.32) Urine Collection Type Unknown Urine Color Yellow Urine Clarity Clear Urine pH 7.0 Urine Specific Orrick 1.010 Urine Protein Negative mg/dL (NEG-TRACE) Urine Glucose (UA) Negative mg/dL (NEG) Urine Ketones (Stick) Negative mg/dL (NEG) Urine Blood Negative (NEG) Urine Nitrite Negative (NEG) Urine Bilirubin Negative (NEG) Urine Urobilinogen Dipstick 0.2 mg/dL (0.2 mg/dL) Urine Leukocyte Esterase Negative (NEG) Urine RBC 0 /HPF (0-2) Urine WBC Occ /HPF (0-4) Urine Bacteria 0 /HPF (0-FEW) Urine Mucus Slight /LPF Test 09/11/18 17:15 09/12/18 11:03 Troponin I Quantitative 0.029 ng/mL (0.000-0.055) Sodium Level 134 mmol/L (136-145) Potassium Level 3.7 mmol/L (3.5-5.1) Chloride Level 100 mmol/L (98-107) Carbon Dioxide Level 27 mmol/L (21-32) Anion Gap 7 (6-14) Blood Urea Nitrogen 8 mg/dL (8-26) Creatinine 0.9 mg/dL (0.7-1.3) Estimated GFR (Cockcroft-Gault) 82.3 BUN/Creatinine Ratio 9 (6-20) Glucose Level 137 mg/dL (70-99) Calcium Level 8.8 mg/dL (8.5-10.1) Total Bilirubin 1.5 mg/dL (0.2-1.0) Aspartate Amino Transf (AST/SGOT) 20 U/L (15-37) Alanine Aminotransferase (ALT/SGPT) 14 U/L (16-63) Alkaline Phosphatase 63 U/L (46-116) Total Protein 6.6 g/dL (6.4-8.2) Albumin 3.7 g/dL (3.4-5.0) Albumin/Globulin Ratio 1.3 (1.0-1.7) Laboratory Tests Test 09/11/18 17:15 09/12/18 11:03 Troponin I Quantitative 0.029 ng/mL (0.000-0.055) Sodium Level 134 mmol/L (136-145) Potassium Level 3.7 mmol/L (3.5-5.1) Chloride Level 100 mmol/L (98-107) Carbon Dioxide Level 27 mmol/L (21-32) Anion Gap 7 (6-14) Blood Urea Nitrogen 8 mg/dL (8-26) Creatinine 0.9 mg/dL (0.7-1.3) Estimated GFR (Cockcroft-Gault) 82.3 BUN/Creatinine Ratio 9 (6-20) Glucose Level 137 mg/dL (70-99) Calcium Level 8.8 mg/dL (8.5-10.1) Total Bilirubin 1.5 mg/dL (0.2-1.0) Aspartate Amino Transf (AST/SGOT) 20 U/L (15-37) Alanine Aminotransferase (ALT/SGPT) 14 U/L (16-63) Alkaline Phosphatase 63 U/L (46-116) Total Protein 6.6 g/dL (6.4-8.2) Albumin 3.7 g/dL (3.4-5.0) Albumin/Globulin Ratio 1.3 (1.0-1.7) Images Images CT with colon and terminal ileum anterior to liver Assessment/Plan Assessment/Plan Chilaiditi syndrome cards, urology and GI without obvious abnormality and pt with persistent c/o as above. 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 However, persistent issues with this can cause perforation and/or persistent issues with eating. D/w pt, whom is interested in considering surgical intervention. R/R/B/A d/w pt. Risks, including, but not limited to: bleeding, infection, damage to surrounding structures, risk of anesthesia (especially given heart history), risk of open, and risk of anastomotic leak. He appears to understand, his questions are answered and he elects to proceed. Thanks for consult! ANDREA DUNCAN MD September 12, 2018 15:56
[2018-09-12] MEDS ORDERED: MAGNESIUM CITRATE 296 ML SOLUTION. PO ONE (16:00)
[2018-09-12] MEDS: ONDANSETRON ODT 4 MG TAB.RAPDIS. PO PRN (16:12)
[2018-09-12] MEDS: NEOMYCIN SULFATE 500 MG TABLET PO SCH ×2 (16:22→20:30)
[2018-09-12] MEDS: ERYTHROMYCIN BASE 250 MG TABLET PO SCH ×2 (16:22→20:30)
[2018-09-12 19:20] VITALS: BP 149/91
[2018-09-12] MEDS: ATORVASTATIN CALCIUM 20 MG TABLET PO SCH (20:30)
[2018-09-12] MEDS: METOPROLOL SUCC 24HR ER 50 MG TAB.ER.24H. PO SCH (20:30)
[2018-09-12 23:10] VITALS: BP 113/67
[2018-09-13] VITALS (11 sets, daily range): BP systolic 113–145; BP diastolic 60–87
[2018-09-13 06:30] LABS: BASO % 0 % (0-3); EOS # 0.1 x10^3/uL (0.0-0.7); EOS % 2 % (0-3); HEMATOCRIT 40.5 % (39.0-53.0); HEMOGLOBIN 13.8 g/dL (13.0-17.5); LYMPH # 1.1 x10^3/uL (1.0-4.8); LYMPH % 18 % (24-48); MEAN CORPUSCULAR HEMOGLOBIN 31 pg (25-35); MEAN CORPUSCULAR HGB CONC 34 g/dL (31-37); MEAN CORPUSCULAR VOLUME 89 fL (79-100); MONO # 0.7 x10^3/uL (0.0-1.1); MONO % 11 % (0-9); NEUT # 4.4 x10^3uL (1.8-7.7); NEUT % 69 % (31-73); PLATELET COUNT 104 x10^3/uL (140-400); RED BLOOD COUNT 4.53 x10^6/uL (4.30-5.70); RED CELL DISTRIBUTION WIDTH 14.8 % (11.5-14.5); WHITE BLOOD COUNT 6.3 x10^3/uL (4.0-11.0)
[2018-09-13 06:39] LABS: CALCIUM 8.6 mg/dL (8.5-10.1); CREATININE 0.9 mg/dL (0.7-1.3); GFR 82.3; POTASSIUM 3.7 mmol/L (3.5-5.1)
[2018-09-13] MEDS ORDERED: HYDROmorphone 2 MG/ML VIAL IV PRN (07:00)
[2018-09-13] MEDS ORDERED: IV RINGERS,LACTATED 1000ML 1,000 ML IV SCH (07:00)
[2018-09-13] MEDS ORDERED: ONDANSETRON PF 4 MG/2 ML VIAL. IV PRN (07:00)
[2018-09-13] MEDS ORDERED: MORPHINE SULFATE 2 MG/ML VIAL. IV PRN (07:00)
[2018-09-13] MEDS ORDERED: fentaNYL PF VIAL 100 MCG/2 ML VIAL IV PRN ×2 (07:00)
[2018-09-13] MEDS ORDERED: LIDOCAINE 1% PF 2 ML VIAL. ID PRN (07:00)
[2018-09-13] MEDS ORDERED: PROCHLORPERAZINE 10 MG/2 ML VIAL. IV PRN (07:00)
[2018-09-13] MEDS: ASPIRIN ENTERIC COATED 81 MG TABLET.DR. PO SCH (09:00)
[2018-09-13] MEDS: PANTOPRAZOLE 40 MG TABLET.DR. PO SCH (09:36)
[2018-09-13] MEDS: NEOMYCIN SULFATE 500 MG TABLET PO SCH ×3 (09:39→19:57)
[2018-09-13] MEDS: ERYTHROMYCIN BASE 250 MG TABLET PO SCH ×3 (09:39→19:56)
[2018-09-13] MEDS ORDERED: BUPIVAC MPF-EPI 0.5%-1:200000 30 ML VIAL. ONE (10:55)
--- NOTE | 2018-09-13 11:09 | NUR ---
SS following for discharge planning. SS reviewed pt chart. Pt is from home with significant other and is currently on room air. No discharge needs noted at this time. SS will continue to follow for discharge planning.
--- NOTE | 2018-09-13 11:58 | PDOC ---
Objective: Vital Signs: Vital Signs Date Time Temp Pulse Resp B/P (MAP) Pulse Ox O2 Delivery O2 Flow Rate FiO2 09/13/18 11:00 98.1 85 18 145/87 (106) 98 Room Air 98.1 Labs: Laboratory Tests Test 09/13/18 04:30 White Blood Count 6.3 x10^3/uL Red Blood Count 4.53 x10^6/uL Hemoglobin 13.8 g/dL Hematocrit 40.5 % Mean Corpuscular Volume 89 fL Mean Corpuscular Hemoglobin 31 pg Mean Corpuscular Hemoglobin Concent 34 g/dL Red Cell Distribution Width 14.8 % Platelet Count 104 x10^3/uL Neutrophils (%) (Auto) 69 % Lymphocytes (%) (Auto) 18 % Monocytes (%) (Auto) 11 % Eosinophils (%) (Auto) 2 % Basophils (%) (Auto) 0 % Neutrophils # (Auto) 4.4 x10^3uL Lymphocytes # (Auto) 1.1 x10^3/uL Monocytes # (Auto) 0.7 x10^3/uL Eosinophils # (Auto) 0.1 x10^3/uL Basophils # (Auto) 0.0 x10^3/uL Sodium Level 137 mmol/L Potassium Level 3.7 mmol/L Chloride Level 101 mmol/L Carbon Dioxide Level 30 mmol/L Anion Gap 6 Blood Urea Nitrogen 13 mg/dL Creatinine 0.9 mg/dL Estimated GFR (Cockcroft-Gault) 82.3 Glucose Level 98 mg/dL Calcium Level 8.6 mg/dL PE: out of room A/P: Right-sided pain, nausea, dizziness -- Await operative findings. JORDON RODARTE September 13, 2018 11:58
[2018-09-13] MEDS ORDERED: cefOXitin SODIUM IV Push 2 GM VIAL. IVP ONE ×2 (12:00→12:15)
[2018-09-13] MEDS ORDERED: MIDAZOLAM HCL/PF 2 MG/2 ML VIAL. ONE (12:09)
[2018-09-13] MEDS ORDERED: fentaNYL PF VIAL 250 MCG/5 ML VIAL ONE ×2 (12:09→13:51)
[2018-09-13] MEDS ORDERED: ROCURONIUM 50 MG/5 ML VIAL. ONE ×2 (12:09→13:36)
[2018-09-13] MEDS ORDERED: PROPOFOL 20 ML IV ONE (12:11)
[2018-09-13] MEDS ORDERED: DEXAMETHASONE SOD PHOS 4 MG/ML VIAL ONE (12:11)
[2018-09-13] MEDS ORDERED: LIDOCAINE 2% PF 5 ML VIAL. ONE (12:11)
[2018-09-13] MEDS ORDERED: ONDANSETRON PF 4 MG/2 ML VIAL. ONE (12:11)
--- NOTE | 2018-09-13 12:40 | PDOC ---
SURGICAL PROGRESS NOTE Subjective Pre-Op Note 73 yo M with RUQ pain, chilaiditi's syndrome/cecal bascule Less dizzy today, tolerated prep, still with RUQ pain. Pt and pt's supportive describe several months/years of constipation type symptoms. TO OR for laparoscopic versus open right colectomy. R/R/B/A d/w pt and pt's supportive . Risks, including, but not limited to: bleeding, infection, damage to surrounding structures, risk of anesthesia, risk of open. They appear to understand, their questions are answered and they elect to proceed. Vital Signs Vital Signs Date Time Temp Pulse Resp B/P (MAP) Pulse Ox O2 Delivery O2 Flow Rate FiO2 09/13/18 12:05 99.2 89 18 135/73 93 Room Air 99.2 I&O Intake and Output 09/13/18 07:00 Intake Total 420 ml Output Total 300 ml Balance 120 ml Intake Oral 420 ml Output Urine Total 300 ml # Voids 1 # Bowel Movements 1 Labs Laboratory Tests Test 09/11/18 14:05 09/11/18 17:15 09/12/18 11:03 09/13/18 04:30 Troponin I Quantitative 0.042 ng/mL (0.000-0.055) 0.029 ng/mL (0.000-0.055) Sodium Level 134 mmol/L (136-145) 137 mmol/L (136-145) Potassium Level 3.7 mmol/L (3.5-5.1) 3.7 mmol/L (3.5-5.1) Chloride Level 100 mmol/L (98-107) 101 mmol/L (98-107) Carbon Dioxide Level 27 mmol/L (21-32) 30 mmol/L (21-32) Anion Gap 7 (6-14) 6 (6-14) Blood Urea Nitrogen 8 mg/dL (8-26) 13 mg/dL (8-26) Creatinine 0.9 mg/dL (0.7-1.3) 0.9 mg/dL (0.7-1.3) Estimated GFR (Cockcroft-Gault) 82.3 82.3 BUN/Creatinine Ratio 9 (6-20) Glucose Level 137 mg/dL (70-99) 98 mg/dL (70-99) Calcium Level 8.8 mg/dL (8.5-10.1) 8.6 mg/dL (8.5-10.1) Total Bilirubin 1.5 mg/dL (0.2-1.0) Aspartate Amino Transf (AST/SGOT) 20 U/L (15-37) Alanine Aminotransferase (ALT/SGPT) 14 U/L (16-63) Alkaline Phosphatase 63 U/L (46-116) Total Protein 6.6 g/dL (6.4-8.2) Albumin 3.7 g/dL (3.4-5.0) Albumin/Globulin Ratio 1.3 (1.0-1.7) White Blood Count 6.3 x10^3/uL (4.0-11.0) Red Blood Count 4.53 x10^6/uL (4.30-5.70) Hemoglobin 13.8 g/dL (13.0-17.5) Hematocrit 40.5 % (39.0-53.0) Mean Corpuscular Volume 89 fL (79-100) Mean Corpuscular Hemoglobin 31 pg (25-35) Mean Corpuscular Hemoglobin Concent 34 g/dL (31-37) Red Cell Distribution Width 14.8 % (11.5-14.5) Platelet Count 104 x10^3/uL (140-400) Neutrophils (%) (Auto) 69 % (31-73) Lymphocytes (%) (Auto) 18 % (24-48) Monocytes (%) (Auto) 11 % (0-9) Eosinophils (%) (Auto) 2 % (0-3) Basophils (%) (Auto) 0 % (0-3) Neutrophils # (Auto) 4.4 x10^3uL (1.8-7.7) Lymphocytes # (Auto) 1.1 x10^3/uL (1.0-4.8) Monocytes # (Auto) 0.7 x10^3/uL (0.0-1.1) Eosinophils # (Auto) 0.1 x10^3/uL (0.0-0.7) Basophils # (Auto) 0.0 x10^3/uL (0.0-0.2) Laboratory Tests Test 09/13/18 04:30 White Blood Count 6.3 x10^3/uL (4.0-11.0) Red Blood Count 4.53 x10^6/uL (4.30-5.70) Hemoglobin 13.8 g/dL (13.0-17.5) Hematocrit 40.5 % (39.0-53.0) Mean Corpuscular Volume 89 fL (79-100) Mean Corpuscular Hemoglobin 31 pg (25-35) Mean Corpuscular Hemoglobin Concent 34 g/dL (31-37) Red Cell Distribution Width 14.8 % (11.5-14.5) Platelet Count 104 x10^3/uL (140-400) Neutrophils (%) (Auto) 69 % (31-73) Lymphocytes (%) (Auto) 18 % (24-48) Monocytes (%) (Auto) 11 % (0-9) Eosinophils (%) (Auto) 2 % (0-3) Basophils (%) (Auto) 0 % (0-3) Neutrophils # (Auto) 4.4 x10^3uL (1.8-7.7) Lymphocytes # (Auto) 1.1 x10^3/uL (1.0-4.8) Monocytes # (Auto) 0.7 x10^3/uL (0.0-1.1) Eosinophils # (Auto) 0.1 x10^3/uL (0.0-0.7) Basophils # (Auto) 0.0 x10^3/uL (0.0-0.2) Sodium Level 137 mmol/L (136-145) Potassium Level 3.7 mmol/L (3.5-5.1) Chloride Level 101 mmol/L (98-107) Carbon Dioxide Level 30 mmol/L (21-32) Anion Gap 6 (6-14) Blood Urea Nitrogen 13 mg/dL (8-26) Creatinine 0.9 mg/dL (0.7-1.3) Estimated GFR (Cockcroft-Gault) 82.3 Glucose Level 98 mg/dL (70-99) Calcium Level 8.6 mg/dL (8.5-10.1) Problem List Problems Medical Problems: (1) Hypokalemia Status: Acute ANDREA DUNCAN MD September 13, 2018 12:40
[2018-09-13] MEDS ORDERED: PHENYLEPHRINE in 0.9% NACL PF 1 MG/10 ML SYRINGE. IV ONE (12:51)
[2018-09-13] MEDS ORDERED: ePHEDrine PF IN SALINE 50 MG/10 ML SYRINGE. IV ONE (12:51)
[2018-09-13] MEDS ORDERED: GLYCOPYRROLATE 1 MG/5 ML VIAL. ONE (13:57)
[2018-09-13] MEDS ORDERED: NEOSTIGMINE METHYLSULFATE 5 MG/5 ML SYRINGE. ONE (13:57)
[2018-09-13] MEDS ORDERED: ESMOLOL 100 MG/10 ML VIAL. IVP ONE (14:00)
[2018-09-13] MEDS ORDERED: SEVOFLURANE > 120 MINUTES. IH ONE (14:19)
--- NOTE | 2018-09-13 14:19 | PDOC ---
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 nephrolithiasis L renal cyst GERD HLD HTN OA hx of [place] Prior back surgery History of Present Illness History of Present Illness Patient seen and examined Discussed with nurse Discussed with General Surgeon Will receive surgery today, w/ possible bowl resection Vitals Vitals Vital Signs Date Time Temp Pulse Resp B/P (MAP) Pulse Ox O2 Delivery O2 Flow Rate FiO2 09/13/18 12:05 99.2 89 18 135/73 93 Room Air 99.2 Physical Exam General: Alert, Oriented X3, Cooperative, mild distress Heart: Normal S1, Normal S2, Other (2/6 systolic murmur, Tachycardia) Lungs: Clear Abdomen: Soft, Other (no peritoneal signs, TTP RLQ, no masses, no hernias) Extremities: No clubbing, No cyanosis Skin: No rashes, No breakdown Labs LABS Laboratory Tests Test 09/13/18 04:30 White Blood Count 6.3 x10^3/uL (4.0-11.0) Red Blood Count 4.53 x10^6/uL (4.30-5.70) Hemoglobin 13.8 g/dL (13.0-17.5) Hematocrit 40.5 % (39.0-53.0) Mean Corpuscular Volume 89 fL (79-100) Mean Corpuscular Hemoglobin 31 pg (25-35) Mean Corpuscular Hemoglobin Concent 34 g/dL (31-37) Red Cell Distribution Width 14.8 % (11.5-14.5) Platelet Count 104 x10^3/uL (140-400) Neutrophils (%) (Auto) 69 % (31-73) Lymphocytes (%) (Auto) 18 % (24-48) Monocytes (%) (Auto) 11 % (0-9) Eosinophils (%) (Auto) 2 % (0-3) Basophils (%) (Auto) 0 % (0-3) Neutrophils # (Auto) 4.4 x10^3uL (1.8-7.7) Lymphocytes # (Auto) 1.1 x10^3/uL (1.0-4.8) Monocytes # (Auto) 0.7 x10^3/uL (0.0-1.1) Eosinophils # (Auto) 0.1 x10^3/uL (0.0-0.7) Basophils # (Auto) 0.0 x10^3/uL (0.0-0.2) Sodium Level 137 mmol/L (136-145) Potassium Level 3.7 mmol/L (3.5-5.1) Chloride Level 101 mmol/L (98-107) Carbon Dioxide Level 30 mmol/L (21-32) Anion Gap 6 (6-14) Blood Urea Nitrogen 13 mg/dL (8-26) Creatinine 0.9 mg/dL (0.7-1.3) Estimated GFR (Cockcroft-Gault) 82.3 Glucose Level 98 mg/dL (70-99) Calcium Level 8.6 mg/dL (8.5-10.1) Review of Systems Review of Systems Patient admits to Nausea Patient admits to dizziness Patient denies TAO Assessment and Plan Assessmemt and Plan Problems Medical Problems: (1) Hypokalemia Status: Acute Assessment: Chilaiditi Syndrome RLQ pain/R flank pain nephrolithiasis L renal cyst GERD HLD HTN OA hx of [place] Prior back surgery Plan: Surgery Today Wound care Cardiac monitoring PRN pain medication Home meds Labs PT/OT DVT ppx Full code Cardiology, GI, Surgery and Urology consulted Comment Review of Relevant I have reviewed the following items jensen (where applicable) has been applied. Labs Laboratory Tests Test 09/11/18 17:15 09/12/18 11:03 09/13/18 04:30 Troponin I Quantitative 0.029 ng/mL (0.000-0.055) Sodium Level 134 mmol/L (136-145) 137 mmol/L (136-145) Potassium Level 3.7 mmol/L (3.5-5.1) 3.7 mmol/L (3.5-5.1) Chloride Level 100 mmol/L (98-107) 101 mmol/L (98-107) Carbon Dioxide Level 27 mmol/L (21-32) 30 mmol/L (21-32) Anion Gap 7 (6-14) 6 (6-14) Blood Urea Nitrogen 8 mg/dL (8-26) 13 mg/dL (8-26) Creatinine 0.9 mg/dL (0.7-1.3) 0.9 mg/dL (0.7-1.3) Estimated GFR (Cockcroft-Gault) 82.3 82.3 BUN/Creatinine Ratio 9 (6-20) Glucose Level 137 mg/dL (70-99) 98 mg/dL (70-99) Calcium Level 8.8 mg/dL (8.5-10.1) 8.6 mg/dL (8.5-10.1) Total Bilirubin 1.5 mg/dL (0.2-1.0) Aspartate Amino Transf (AST/SGOT) 20 U/L (15-37) Alanine Aminotransferase (ALT/SGPT) 14 U/L (16-63) Alkaline Phosphatase 63 U/L (46-116) Total Protein 6.6 g/dL (6.4-8.2) Albumin 3.7 g/dL (3.4-5.0) Albumin/Globulin Ratio 1.3 (1.0-1.7) White Blood Count 6.3 x10^3/uL (4.0-11.0) Red Blood Count 4.53 x10^6/uL (4.30-5.70) Hemoglobin 13.8 g/dL (13.0-17.5) Hematocrit 40.5 % (39.0-53.0) Mean Corpuscular Volume 89 fL (79-100) Mean Corpuscular Hemoglobin 31 pg (25-35) Mean Corpuscular Hemoglobin Concent 34 g/dL (31-37) Red Cell Distribution Width 14.8 % (11.5-14.5) Platelet Count 104 x10^3/uL (140-400) Neutrophils (%) (Auto) 69 % (31-73) Lymphocytes (%) (Auto) 18 % (24-48) Monocytes (%) (Auto) 11 % (0-9) Eosinophils (%) (Auto) 2 % (0-3) Basophils (%) (Auto) 0 % (0-3) Neutrophils # (Auto) 4.4 x10^3uL (1.8-7.7) Lymphocytes # (Auto) 1.1 x10^3/uL (1.0-4.8) Monocytes # (Auto) 0.7 x10^3/uL (0.0-1.1) Eosinophils # (Auto) 0.1 x10^3/uL (0.0-0.7) Basophils # (Auto) 0.0 x10^3/uL (0.0-0.2) Laboratory Tests Test 09/13/18 04:30 White Blood Count 6.3 x10^3/uL (4.0-11.0) Red Blood Count 4.53 x10^6/uL (4.30-5.70) Hemoglobin 13.8 g/dL (13.0-17.5) Hematocrit 40.5 % (39.0-53.0) Mean Corpuscular Volume 89 fL (79-100) Mean Corpuscular Hemoglobin 31 pg (25-35) Mean Corpuscular Hemoglobin Concent 34 g/dL (31-37) Red Cell Distribution Width 14.8 % (11.5-14.5) Platelet Count 104 x10^3/uL (140-400) Neutrophils (%) (Auto) 69 % (31-73) Lymphocytes (%) (Auto) 18 % (24-48) Monocytes (%) (Auto) 11 % (0-9) Eosinophils (%) (Auto) 2 % (0-3) Basophils (%) (Auto) 0 % (0-3) Neutrophils # (Auto) 4.4 x10^3uL (1.8-7.7) Lymphocytes # (Auto) 1.1 x10^3/uL (1.0-4.8) Monocytes # (Auto) 0.7 x10^3/uL (0.0-1.1) Eosinophils # (Auto) 0.1 x10^3/uL (0.0-0.7) Basophils # (Auto) 0.0 x10^3/uL (0.0-0.2) Sodium Level 137 mmol/L (136-145) Potassium Level 3.7 mmol/L (3.5-5.1) Chloride Level 101 mmol/L (98-107) Carbon Dioxide Level 30 mmol/L (21-32) Anion Gap 6 (6-14) Blood Urea Nitrogen 13 mg/dL (8-26) Creatinine 0.9 mg/dL (0.7-1.3) Estimated GFR (Cockcroft-Gault) 82.3 Glucose Level 98 mg/dL (70-99) Calcium Level 8.6 mg/dL (8.5-10.1) Medications Current Medications Adenosine (Adenocard) 6 mg STK-MED ONCE IV ; Start 09/11/18 at 10:13; Stop 09/11/18 at 10:14; Status DC Adenosine (Adenocard) 12 mg 1X ONCE IV ; Start 09/11/18 at 10:15; Stop 09/11/18 at 10:17; Status DC Sodium Chloride 1,000 ml @ 1,000 mls/hr Q1H IV Last administered on 09/11/18at 10:42; Start 09/11/18 at 10:13; Stop 09/11/18 at 11:12; Status DC Adenosine (Adenocard) 6 mg 1X ONCE IV ; Start 09/11/18 at 10:15; Stop 09/11/18 at 10:17; Status DC Ondansetron HCl (Zofran) 4 mg 1X ONCE IV Last administered on 09/11/18at 10:46; Start 09/11/18 at 10:45; Stop 09/11/18 at 10:46; Status DC Potassium Chloride (Klor-Con) 40 meq 1X ONCE PO Last administered on 09/11/18at 13:01; Start 09/11/18 at 11:15; Stop 09/11/18 at 11:16; Status DC Aspirin (Ecotrin) 81 mg DAILY PO Last administered on 09/12/18at 07:19; Start 09/11/18 at 13:00 Metoprolol Succinate (Toprol Xl) 25 mg HS PO ; Start 09/11/18 at 21:00; Stop 09/11/18 at 21:00; Status DC Ondansetron HCl (Zofran Odt) 4 mg PRN Q6HRS PRN PO NAUSEA/VOMITING Last administered on 09/12/18at 16:12; Start 09/11/18 at 13:00 Pantoprazole Sodium (Protonix) 40 mg DAILYAC PO Last administered on 09/13/18at 09:36; Start 09/11/18 at 13:00 Simvastatin (Zocor) 40 mg QHS PO Last administered on 09/11/18at 20:46; Start 09/11/18 at 21:00; Stop 09/12/18 at 15:50; Status DC Ondansetron HCl (Zofran) 4 mg STK-MED ONCE .ROUTE ; Start 09/11/18 at 10:46; Stop 09/11/18 at 12:12; Status DC Sodium Chloride 1,000 ml @ 100 mls/hr 1X ONCE IV Last administered on 9at 13:04; Start 09/11/18 at 12:45; Stop 09/11/18 at 22:44; Status DC Iohexol (Omnipaque 240 Mg/ml) 50 ml 1X ONCE PO Last administered on 09/11/18 14:40; Start 09/11/18 at 13:15; Stop 09/11/18 at 13:23; Status DC Iohexol (Omnipaque 300 Mg/ml) 75 ml 1X ONCE IV Last administered on 09/11/18 14:40; Start 09/11/18 at 13:15; Stop 09/11/18 at 13:23; Status DC Info (CONTRAST GIVEN -- Rx MONITORING) 1 each PRN DAILY PRN MC SEE COMMENTS; Start 09/11/18 at 13:30; Stop 09/13/18 at 13:29; Status DC Ondansetron HCl (Zofran) 4 mg PRN Q6HRS PRN IV NAUSEA/VOMITING 1ST CHOICE Last administered on 09/12/18 19:17; Start 09/11/18 at 15:00 Prochlorperazine Edisylate (Compazine) 10 mg PRN Q6HRS PRN IV NAUSEA/VOMITING 2ND CHOICE Last administered on 09/12/18 14:34; Start 09/11/18 at 15:00 Metoprolol Succinate (Toprol Xl) 50 mg HS PO Last administered on 09/12/18 20:30; Start 09/11/18 at 21:00 Morphine Sulfate (Morphine Sulfate) 2 mg PRN Q4HRS PRN IV PAIN Last administered on 09/12/18 01:06; Start 09/11/18 at 17:45 Acetaminophen/ Hydrocodone Bitart (Lortab 5/325) 1 tab PRN Q6HRS PRN PO PAIN Last administered on 09/12/18 06:43; Start 09/11/18 at 17:45 Tamsulosin HCl (Flomax) 0.4 mg DAILY PO ; Start 09/12/18 at 10:00; Stop 09/12/18 at 10:37; Status DC Polyethylene Glycol (miraLAX PACKET) 17 gm PRN DAILY PRN PO CONSTIPATION Last administered on 09/12/18at 11:23; Start 09/12/18 at 09:15 Ketorolac Tromethamine (Toradol 30mg Vial) 30 mg PRN Q6HRS PRN IV PAIN; Start 09/12/18 at 10:15; Stop 09/17/18 at 10:14 Meclizine HCl (Antivert) 12.5 mg PRN Q6HRS PRN PO DIZZINESS Last administered on 09/12/18at 11:23; Start 09/12/18 at 11:15 Sodium Monofluorophosphate (Fleet Adult) 133 ml 1X ONCE IA Last administered on 09/12/18at 16:13; Start 09/12/18 at 14:45; Stop 09/12/18 at 14:46; Status DC Magnesium Citrate (Citroma) 296 ml 1X ONCE PO Last administered on 09/12/18at 16:12; Start 09/12/18 at 16:00; Stop 09/12/18 at 16:01; Status DC Erythromycin (E-Mycin) 500 mg TID PO Last administered on 09/13/18at 09:39; Start 09/12/18 at 15:00 Neomycin Sulfate (Neomycin Sulfate) 500 mg TID PO Last administered on 09/13/18 09:39; Start 09/12/18 at 16:00 Cefoxitin Sodium (Mefoxin) 2 gm 1X PERIOP ONCE IVP Last administered on 09/13/18at 12:40; Start 09/13/18 at 12:00; Stop 09/13/18 at 12:01; Status DC Atorvastatin Calcium (Lipitor) 20 mg QHS PO Last administered on 09/12/18at 20:30; Start 09/12/18 at 21:00 Ondansetron HCl (Zofran) 4 mg PRN Q6HRS PRN IV NAUSEA/VOMITING; Start 09/13/18 at 07:00; Stop 09/14/18 at 06:59 Fentanyl Citrate (Fentanyl 2ml Vial) 25 mcg PRN Q5MIN PRN IV MILD PAIN; Start 09/13/18 at 07:00; Stop 09/14/18 at 06:59 Fentanyl Citrate (Fentanyl 2ml Vial) 50 mcg PRN Q5MIN PRN IV MODERATE TO SEVERE PAIN; Start 09/13/18 at 07:00; Stop 09/14/18 at 06:59 Morphine Sulfate (Morphine Sulfate) 1 mg PRN Q10MIN PRN IV SEVERE PAIN; Start 09/13/18 at 07:00; Stop 09/14/18 at 06:59 Ringer's Solution 1,000 ml @ 30 mls/hr Q24H IV Last administered on 09/13/18at 0 6:32; Start 09/13/18 at 07:00; Stop 09/13/18 at 18:59 Lidocaine HCl (Xylocaine-Mpf 1% 2ml Vial) 2 ml PRN 1X PRN ID PRIOR TO IV START; Start 09/13/18 at 07:00; Stop 09/14/18 at 06:59 Hydromorphone HCl (Dilaudid) 0.5 mg PRN Q10MIN PRN IV SEV PAIN, Second choice; Start 09/13/18 at 07:00; Stop 09/14/18 at 06:59 Prochlorperazine Edisylate (Compazine) 5 mg PACU PRN PRN IV NAUSEA, MRX1; Sta rt 09/13/18 at 07:00; Stop 09/14/18 at 06:59 Lorazepam (Ativan) 0.5 mg PRN Q6HRS PRN IV ANXIETY / AGITATION Last administered on 09/12/18at 20:31; Start 09/12/18 at 19:45 Bupivacaine HCl/ Epinephrine Bitart (Sensorcain-Mpf Epi 0.5%-1:[id number]) 30 ml STK-MED ONCE .ROUTE ; Start 09/13/18 at 10:55; Stop 09/13/18 at 11:55; Status DC Rocuronium Henderson (Zemuron) 50 mg STK-MED ONCE .ROUTE ; Start 09/13/18 at 12:09; Stop 09/13/18 at 12:10; Status DC Midazolam HCl (Versed) 2 mg STK-MED ONCE .ROUTE ; Start 09/13/18 at 12:09; Stop 09/13/18 at 12:10; Status DC Fentanyl Citrate (Fentanyl 5ml Vial) 250 mcg STK-MED ONCE .ROUTE ; Start 09/13/18 at 12:09; Stop 09/13/18 at 12:10; Status DC Propofol 20 ml @ As Directed STK-MED ONCE IV ; Start 09/13/18 at 12:11; Stop 09/13/18 at 12:12; Status DC Lidocaine HCl (Lidocaine Pf 2% Vial) 5 ml STK-MED ONCE .ROUTE ; Start 09/13/18 at 12:11; Stop 09/13/18 at 12:12; Status DC Ondansetron HCl (Zofran) 4 mg STK-MED ONCE .ROUTE ; Start 09/13/18 at 12:11; Stop 09/13/18 at 12:12; Status DC Dexamethasone Sodium Phosphate (Decadron) 4 mg STK-MED ONCE .ROUTE ; Start 09/13/18 at 12:11; Stop 09/13/18 at 12:12; Status DC Cefoxitin Sodium (Mefoxin) 2 gm 1X ONCE IVP ; Start 09/13/18 at 12:15; Stop 09/13/18 at 12:16; Status DC Ephedrine Sulfate (ePHEDrine PF IN SALINE SYRINGE) 50 mg STK-MED ONCE IV ; Start 09/13/18 at 12:51; Stop 09/13/18 at 12:52; Status DC Phenylephrine HCl (PHENYLEPHRINE in 0.9% NACL PF) 1 mg STK-MED ONCE IV ; Start 09/13/18 at 12:51; Stop 09/13/18 at 12:52; Status DC Rocuronium Henderson (Zemuron) 50 mg STK-MED ONCE .ROUTE ; Start 09/13/18 at 13:36; Stop 09/13/18 at 13:37; Status DC Fentanyl Citrate (Fentanyl 5ml Vial) 250 mcg STK-MED ONCE .ROUTE ; Start 09/13/18 at 13:51; Stop 09/13/18 at 13:52; Status DC Neostigmine Methylsulfate (Neostigmine Methylsulfate) 5 mg STK-MED ONCE .ROUTE ; Start 09/13/18 at 13:57; Stop 09/13/18 at 13:58; Status DC Glycopyrrolate (Robinul) 1 mg STK-MED ONCE .ROUTE ; Start 09/13/18 at 13:57; Stop 09/13/18 at 13:58; Status DC Esmolol HCl (Brevibloc) 100 mg STK-MED ONCE IVP ; Start 09/13/18 at 14:00; Stop 09/13/18 at 14:01; Status DC Active Scripts Active Ondansetron Odt (Ondansetron) 4 Mg Tab.rapdis 1 Tab PO PRN Q6-8HRS Protonix (Pantoprazole Sodium) 40 Mg Tablet.dr 1 Tab PO DAILY Reported Zocor (Simvastatin) 40 Mg Tablet 40 Mg PO HS Toprol Xl (Metoprolol Succinate) 25 Mg Tab.er.24h 25 Mg PO HS Aspir 81 (Aspirin) 81 Mg Tablet.dr 81 Mg PO DAILY Vitals/I & O Vital Sign - Last 24 Hours 09/12/18 09/12/18 09/12/18 09/12/18 15:00 19:20 20:00 20:30 Temp 97.4 97.7 97.4 97.7 Pulse 99 104 104 Resp 18 20 B/P (MAP) 159/77 (104) 149/91 (110) 149/91 Pulse Ox 94 94 O2 Delivery Room Air Room Air Room Air 09/12/18 09/13/18 09/13/18 09/13/18 23:10 03:35 07:00 07:40 Temp 97.4 98.0 98.2 97.4 98.0 98.2 Pulse 80 64 72 Resp 18 B/P (MAP) 113/67 (82) 117/62 (80) 127/60 (82) Pulse Ox 95 96 96 O2 Delivery Room Air Room Air Room Air Room Air 09/13/18 09/13/18 11:00 12:05 Temp 98.1 99.2 98.1 99.2 Pulse 85 89 Resp 18 B/P (MAP) 145/87 (106) 135/73 Pulse Ox 98 93 O2 Delivery Room Air Room Air Intake and Output 09/12/18 09/12/18 09/13/18 14:59 22:59 06:59 Intake Total 420 ml 0 ml Output Total 300 ml Balance 120 ml 0 ml TITO DESAI III DO September 13, 2018 14:19
[2018-09-13] MEDS: IV NORMAL SALINE 1000ML BAG 1,000 ML IV SCH (15:04)
[2018-09-13] MEDS ORDERED: MORPHINE SULFATE/PF 30 ML IV PRN (15:15)
[2018-09-13] MEDS ORDERED: NALOXONE 0.4 MG/ML VIAL. IV PRN (15:15)
[2018-09-13] MEDS ORDERED: 0.9 % SODIUM CHLORIDE 10 ML DISP.SYRIN. IV PRN (15:15)
--- NOTE | 2018-09-13 15:25 | PDOC4 ---
OPERATIVE NOTE Date: Date: September 13, 2018 Pre-Op Diagnosis: Chilaiditi's syndrome Post-Op Diagnosis: same Procedure Performed: Laparoscopic right hemicolectomy Surgeon: Baldo Duncan Anesthesia Type: GETA plus local Blood Loss: 100 Specimans Obtained: right colon, additional small bowel Findings: Redundant right hepatic flexure extending well up above the liver, no obvious masses, no obvious volvulus, no bowel compromise, normal gallbladder, normal liver, although somewhat unusual shape Complications: none Operative Note: After obtaining informed consent, patient was taken to OR, induced under GETA and prepped in the usual fashion. 5mm port placed LUQ, RUQ and RLQ, all under laparoscopic guidance. Abdominal cavity explored and upon findings noted. Small bowel run completely and otherwise unremarkable. Right colon, lateral transverse colon pulled out of upper RUQ. White line of toldt divided with ligasure and right colon bluntly mobilized, although significantly mobile already. Low riding kidney and elevated right colon with minimal risk to right ureter. Right ureter visualized in distal right pelvis and noted to be intact. Right colon eviscerated through RLQ transverse incision with placement of wound protector. Small bowel divided proximal to ileocecal valve with ROHAN. Additional small bowel also taken, secondary to vascular viability concern. Right transverse colon divided with ROHAN distal to area of concern. Mesentery taken with ligasure. Right colonic artery doubly ligated with ligasure. Specimen sent to pathology for evaluation. Side to side stapled anastomosis created with ROHAN and sealed with TA 60. Mesentery closed with 3 0 chromic and 3 0 vicryl placed in crotch of anastomosis. Anastomosis noted to be patent, viable, without tension and no evidence of leakage. Gloves and instruments changed. Bowel returned to abdominal cavity. Peritoneum closed with 0 vicryl. Anterior fascia closed with looped 0 PDS. Laparoscopic exploration demonstrated no evidence of bleeding or other pathology. Copious irrigation. Ports removed without bleeding. Skin repaired with 3 0 vicryl and 4 0 monocryl. Dressings placed. Patient tolerated procedure well and sent to PACU in stable condition. All counts correct. Wound class is 2. ANDREA DUNCAN MD September 13, 2018 15:25
[2018-09-13] MEDS ORDERED: LIDOCAINE 2% 100 MG/5 ML SYRINGE. ONE (15:35)
[2018-09-13] MEDS ORDERED: LIDOCAINE 2% 100 MG/5 ML SYRINGE. IV ONE (15:45)
[2018-09-13] MEDS ORDERED: ENOXAPARIN 40 MG/0.4 ML SYRINGE. SQ SCH (16:00)
[2018-09-13] MEDS: IV RINGERS,LACTATED 1000ML 1,000 ML IV SCH (16:53)
[2018-09-13] MEDS: MORPHINE SULFATE 2 MG/ML VIAL. IV PRN (18:37)
[2018-09-13] MEDS ORDERED: METOPROLOL TARTRATE 5 MG/5 ML VIAL. IVP ONE (18:45)
[2018-09-13] MEDS: METOPROLOL SUCC 24HR ER 50 MG TAB.ER.24H. PO SCH (19:57)
[2018-09-13] MEDS: ATORVASTATIN CALCIUM 20 MG TABLET PO SCH (19:57)
[2018-09-14] MEDS: IV RINGERS,LACTATED 1000ML 1,000 ML IV SCH (01:04)
[2018-09-14] MEDS: MORPHINE SULFATE 2 MG/ML VIAL. IV PRN ×5 (02:06→20:32)
[2018-09-14 03:00] VITALS: BP 143/76
[2018-09-14 05:07] LABS: BASO % 0 % (0-3); EOS % 0 % (0-3); HEMATOCRIT 40.5 % (39.0-53.0); HEMOGLOBIN 13.5 g/dL (13.0-17.5); LYMPH # 0.5 x10^3/uL (1.0-4.8); LYMPH % 4 % (24-48); MEAN CORPUSCULAR HEMOGLOBIN 30 pg (25-35); MEAN CORPUSCULAR HGB CONC 33 g/dL (31-37); MEAN CORPUSCULAR VOLUME 90 fL (79-100); MONO % 8 % (0-9); NEUT # 11.5 x10^3uL (1.8-7.7); NEUT % 88 % (31-73); PLATELET COUNT 109 x10^3/uL (140-400); RED BLOOD COUNT 4.51 x10^6/uL (4.30-5.70); RED CELL DISTRIBUTION WIDTH 14.6 % (11.5-14.5); WHITE BLOOD COUNT 13.1 x10^3/uL (4.0-11.0)
[2018-09-14 05:24] LABS: CALCIUM 8.3 mg/dL (8.5-10.1); CREATININE 0.9 mg/dL (0.7-1.3); GFR 82.3; POTASSIUM 4.3 mmol/L (3.5-5.1)
[2018-09-14] MEDS: METOPROLOL TARTRATE 5 MG/5 ML VIAL. IVP SCH ×3 (06:19→21:20)
[2018-09-14 07:00] VITALS: BP 122/67
[2018-09-14] MEDS: PANTOPRAZOLE 40 MG TABLET.DR. PO SCH (07:30)
[2018-09-14] MEDS: ONDANSETRON PF 4 MG/2 ML VIAL. IV PRN (08:49)
[2018-09-14] MEDS: NEOMYCIN SULFATE 500 MG TABLET PO SCH (08:50)
[2018-09-14] MEDS: ENOXAPARIN 40 MG/0.4 ML SYRINGE. SQ SCH (08:50)
[2018-09-14] MEDS: ASPIRIN ENTERIC COATED 81 MG TABLET.DR. PO SCH (08:50)
[2018-09-14] MEDS: ERYTHROMYCIN BASE 250 MG TABLET PO SCH (08:50)
--- NOTE | 2018-09-14 10:05 | PDOC ---
SURGICAL PROGRESS NOTE Subjective some nausea this AM incisional pain, worse with movement not sure any flatus Vital Signs Vital Signs Date Time Temp Pulse Resp B/P (MAP) Pulse Ox O2 Delivery O2 Flow Rate FiO2 09/14/18 07:00 98.7 94 16 122/67 (85) 97 Room Air 98.7 09/14/18 07:00 2.0 I&O Intake and Output 09/14/18 07:00 Intake Total 2875 ml Output Total 1600 ml Balance 1275 ml Intake Oral 0 ml IV Total 2875 ml Output Urine Total 1500 ml Estimated Blood Loss 100 ml PATIENT HAS A EWING: Yes General: Alert, Oriented X3, Cooperative, No acute distress Abdomen: Soft, Other (ND, dressing dry, incisional TTP) Labs Laboratory Tests Test 09/12/18 11:03 09/13/18 04:30 09/13/18 16:05 09/14/18 04:30 Sodium Level 134 mmol/L (136-145) 137 mmol/L (136-145) 137 mmol/L (136-145) Potassium Level 3.7 mmol/L (3.5-5.1) 3.7 mmol/L (3.5-5.1) 4.3 mmol/L (3.5-5.1) Chloride Level 100 mmol/L (98-107) 101 mmol/L (98-107) 102 mmol/L (98-107) Carbon Dioxide Level 27 mmol/L (21-32) 30 mmol/L (21-32) 25 mmol/L (21-32) Anion Gap 7 (6-14) 6 (6-14) 10 (6-14) Blood Urea Nitrogen 8 mg/dL (8-26) 13 mg/dL (8-26) 16 mg/dL (8-26) Creatinine 0.9 mg/dL (0.7-1.3) 0.9 mg/dL (0.7-1.3) 0.9 mg/dL (0.7-1.3) Estimated GFR (Cockcroft-Gault) 82.3 82.3 82.3 BUN/Creatinine Ratio 9 (6-20) Glucose Level 137 mg/dL (70-99) 98 mg/dL (70-99) 115 mg/dL (70-99) Calcium Level 8.8 mg/dL (8.5-10.1) 8.6 mg/dL (8.5-10.1) 8.3 mg/dL (8.5-10.1) Total Bilirubin 1.5 mg/dL (0.2-1.0) Aspartate Amino Transf (AST/SGOT) 20 U/L (15-37) Alanine Aminotransferase (ALT/SGPT) 14 U/L (16-63) Alkaline Phosphatase 63 U/L (46-116) Total Protein 6.6 g/dL (6.4-8.2) Albumin 3.7 g/dL (3.4-5.0) Albumin/Globulin Ratio 1.3 (1.0-1.7) White Blood Count 6.3 x10^3/uL (4.0-11.0) 13.1 x10^3/uL (4.0-11.0) Red Blood Count 4.53 x10^6/uL (4.30-5.70) 4.51 x10^6/uL (4.30-5.70) Hemoglobin 13.8 g/dL (13.0-17.5) 13.5 g/dL (13.0-17.5) Hematocrit 40.5 % (39.0-53.0) 40.5 % (39.0-53.0) Mean Corpuscular Volume 89 fL (79-100) 90 fL (79-100) Mean Corpuscular Hemoglobin 31 pg (25-35) 30 pg (25-35) Mean Corpuscular Hemoglobin Concent 34 g/dL (31-37) 33 g/dL (31-37) Red Cell Distribution Width 14.8 % (11.5-14.5) 14.6 % (11.5-14.5) Platelet Count 104 x10^3/uL (140-400) 109 x10^3/uL (140-400) Neutrophils (%) (Auto) 69 % (31-73) 88 % (31-73) Lymphocytes (%) (Auto) 18 % (24-48) 4 % (24-48) Monocytes (%) (Auto) 11 % (0-9) 8 % (0-9) Eosinophils (%) (Auto) 2 % (0-3) 0 % (0-3) Basophils (%) (Auto) 0 % (0-3) 0 % (0-3) Neutrophils # (Auto) 4.4 x10^3uL (1.8-7.7) 11.5 x10^3uL (1.8-7.7) Lymphocytes # (Auto) 1.1 x10^3/uL (1.0-4.8) 0.5 x10^3/uL (1.0-4.8) Monocytes # (Auto) 0.7 x10^3/uL (0.0-1.1) 1.0 x10^3/uL (0.0-1.1) Eosinophils # (Auto) 0.1 x10^3/uL (0.0-0.7) 0.0 x10^3/uL (0.0-0.7) Basophils # (Auto) 0.0 x10^3/uL (0.0-0.2) 0.0 x10^3/uL (0.0-0.2) Glucose (Fingerstick) 107 mg/dL (70-99) Laboratory Tests Test 09/13/18 16:05 09/14/18 04:30 Glucose (Fingerstick) 107 mg/dL (70-99) White Blood Count 13.1 x10^3/uL (4.0-11.0) Red Blood Count 4.51 x10^6/uL (4.30-5.70) Hemoglobin 13.5 g/dL (13.0-17.5) Hematocrit 40.5 % (39.0-53.0) Mean Corpuscular Volume 90 fL (79-100) Mean Corpuscular Hemoglobin 30 pg (25-35) Mean Corpuscular Hemoglobin Concent 33 g/dL (31-37) Red Cell Distribution Width 14.6 % (11.5-14.5) Platelet Count 109 x10^3/uL (140-400) Neutrophils (%) (Auto) 88 % (31-73) Lymphocytes (%) (Auto) 4 % (24-48) Monocytes (%) (Auto) 8 % (0-9) Eosinophils (%) (Auto) 0 % (0-3) Basophils (%) (Auto) 0 % (0-3) Neutrophils # (Auto) 11.5 x10^3uL (1.8-7.7) Lymphocytes # (Auto) 0.5 x10^3/uL (1.0-4.8) Monocytes # (Auto) 1.0 x10^3/uL (0.0-1.1) Eosinophils # (Auto) 0.0 x10^3/uL (0.0-0.7) Basophils # (Auto) 0.0 x10^3/uL (0.0-0.2) Sodium Level 137 mmol/L (136-145) Potassium Level 4.3 mmol/L (3.5-5.1) Chloride Level 102 mmol/L (98-107) Carbon Dioxide Level 25 mmol/L (21-32) Anion Gap 10 (6-14) Blood Urea Nitrogen 16 mg/dL (8-26) Creatinine 0.9 mg/dL (0.7-1.3) Estimated GFR (Cockcroft-Gault) 82.3 Glucose Level 115 mg/dL (70-99) Calcium Level 8.3 mg/dL (8.5-10.1) Problem List Problems Medical Problems: (1) Hypokalemia Status: Acute Assessment/Plan POD#1 lap right hemicolectomy await bowel function [employer]NA[employer] September 14, 2018 10:05
--- NOTE | 2018-09-14 10:52 | PDOC ---
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 nephrolithiasis L renal cyst GERD HLD HTN OA hx of MA Prior back surgery History of Present Illness History of Present Illness Patient seen and examined Discussed with nurse Patient had partial colon resection yesterday(part of the ascending colon and part of the transverse colon) Vitals Vitals Vital Signs Date Time Temp Pulse Resp B/P (MAP) Pulse Ox O2 Delivery O2 Flow Rate FiO2 09/14/18 07:00 98.7 94 16 122/67 (85) 97 Room Air 98.7 09/14/18 07:00 2.0 Physical Exam General: Alert, Oriented X3, Cooperative, No acute distress Heart: Normal S1, Normal S2, Other (2/6 systolic murmur, Tachycardia) Lungs: Clear Abdomen: Soft, Other (clean dry intact dressing decreased bowel sounds) Extremities: No clubbing, No cyanosis Skin: No rashes, No breakdown Labs LABS Laboratory Tests Test 09/13/18 16:05 09/14/18 04:30 Glucose (Fingerstick) 107 mg/dL (70-99) White Blood Count 13.1 x10^3/uL (4.0-11.0) Red Blood Count 4.51 x10^6/uL (4.30-5.70) Hemoglobin 13.5 g/dL (13.0-17.5) Hematocrit 40.5 % (39.0-53.0) Mean Corpuscular Volume 90 fL (79-100) Mean Corpuscular Hemoglobin 30 pg (25-35) Mean Corpuscular Hemoglobin Concent 33 g/dL (31-37) Red Cell Distribution Width 14.6 % (11.5-14.5) Platelet Count 109 x10^3/uL (140-400) Neutrophils (%) (Auto) 88 % (31-73) Lymphocytes (%) (Auto) 4 % (24-48) Monocytes (%) (Auto) 8 % (0-9) Eosinophils (%) (Auto) 0 % (0-3) Basophils (%) (Auto) 0 % (0-3) Neutrophils # (Auto) 11.5 x10^3uL (1.8-7.7) Lymphocytes # (Auto) 0.5 x10^3/uL (1.0-4.8) Monocytes # (Auto) 1.0 x10^3/uL (0.0-1.1) Eosinophils # (Auto) 0.0 x10^3/uL (0.0-0.7) Basophils # (Auto) 0.0 x10^3/uL (0.0-0.2) Sodium Level 137 mmol/L (136-145) Potassium Level 4.3 mmol/L (3.5-5.1) Chloride Level 102 mmol/L (98-107) Carbon Dioxide Level 25 mmol/L (21-32) Anion Gap 10 (6-14) Blood Urea Nitrogen 16 mg/dL (8-26) Creatinine 0.9 mg/dL (0.7-1.3) Estimated GFR (Cockcroft-Gault) 82.3 Glucose Level 115 mg/dL (70-99) Calcium Level 8.3 mg/dL (8.5-10.1) Review of Systems Review of Systems He wants to eat but complains of some pain and weakness Assessment and Plan Assessmemt and Plan Problems Medical Problems: (1) Hypokalemia Status: Acute Assessment: Postop day 1 partial colon resection Chilaiditi Syndrome RLQ pain/R flank pain nephrolithiasis L renal cyst GERD HLD HTN OA hx of MA Prior back surgery Plan: Wound care Cardiac monitoring Hope to advance diet soon when okay with surgery PRN pain medication Home meds Labs PT/OT DVT ppx Full code Cardiology, GI, Surgery and Urology following Comment Review of Relevant I have reviewed the following items jensen (where applicable) has been applied. Labs Laboratory Tests Test 09/12/18 11:03 09/13/18 04:30 09/13/18 16:05 09/14/18 04:30 Sodium Level 134 mmol/L (136-145) 137 mmol/L (136-145) 137 mmol/L (136-145) Potassium Level 3.7 mmol/L (3.5-5.1) 3.7 mmol/L (3.5-5.1) 4.3 mmol/L (3.5-5.1) Chloride Level 100 mmol/L (98-107) 101 mmol/L (98-107) 102 mmol/L (98-107) Carbon Dioxide Level 27 mmol/L (21-32) 30 mmol/L (21-32) 25 mmol/L (21-32) Anion Gap 7 (6-14) 6 (6-14) 10 (6-14) Blood Urea Nitrogen 8 mg/dL (8-26) 13 mg/dL (8-26) 16 mg/dL (8-26) Creatinine 0.9 mg/dL (0.7-1.3) 0.9 mg/dL (0.7-1.3) 0.9 mg/dL (0.7-1.3) Estimated GFR (Cockcroft-Gault) 82.3 82.3 82.3 BUN/Creatinine Ratio 9 (6-20) Glucose Level 137 mg/dL (70-99) 98 mg/dL (70-99) 115 mg/dL (70-99) Calcium Level 8.8 mg/dL (8.5-10.1) 8.6 mg/dL (8.5-10.1) 8.3 mg/dL (8.5-10.1) Total Bilirubin 1.5 mg/dL (0.2-1.0) Aspartate Amino Transf (AST/SGOT) 20 U/L (15-37) Alanine Aminotransferase (ALT/SGPT) 14 U/L (16-63) Alkaline Phosphatase 63 U/L (46-116) Total Protein 6.6 g/dL (6.4-8.2) Albumin 3.7 g/dL (3.4-5.0) Albumin/Globulin Ratio 1.3 (1.0-1.7) White Blood Count 6.3 x10^3/uL (4.0-11.0) 13.1 x10^3/uL (4.0-11.0) Red Blood Count 4.53 x10^6/uL (4.30-5.70) 4.51 x10^6/uL (4.30-5.70) Hemoglobin 13.8 g/dL (13.0-17.5) 13.5 g/dL (13.0-17.5) Hematocrit 40.5 % (39.0-53.0) 40.5 % (39.0-53.0) Mean Corpuscular Volume 89 fL (79-100) 90 fL (79-100) Mean Corpuscular Hemoglobin 31 pg (25-35) 30 pg (25-35) Mean Corpuscular Hemoglobin Concent 34 g/dL (31-37) 33 g/dL (31-37) Red Cell Distribution Width 14.8 % (11.5-14.5) 14.6 % (11.5-14.5) Platelet Count 104 x10^3/uL (140-400) 109 x10^3/uL (140-400) Neutrophils (%) (Auto) 69 % (31-73) 88 % (31-73) Lymphocytes (%) (Auto) 18 % (24-48) 4 % (24-48) Monocytes (%) (Auto) 11 % (0-9) 8 % (0-9) Eosinophils (%) (Auto) 2 % (0-3) 0 % (0-3) Basophils (%) (Auto) 0 % (0-3) 0 % (0-3) Neutrophils # (Auto) 4.4 x10^3uL (1.8-7.7) 11.5 x10^3uL (1.8-7.7) Lymphocytes # (Auto) 1.1 x10^3/uL (1.0-4.8) 0.5 x10^3/uL (1.0-4.8) Monocytes # (Auto) 0.7 x10^3/uL (0.0-1.1) 1.0 x10^3/uL (0.0-1.1) Eosinophils # (Auto) 0.1 x10^3/uL (0.0-0.7) 0.0 x10^3/uL (0.0-0.7) Basophils # (Auto) 0.0 x10^3/uL (0.0-0.2) 0.0 x10^3/uL (0.0-0.2) Glucose (Fingerstick) 107 mg/dL (70-99) Laboratory Tests Test 09/13/18 16:05 09/14/18 04:30 Glucose (Fingerstick) 107 mg/dL (70-99) White Blood Count 13.1 x10^3/uL (4.0-11.0) Red Blood Count 4.51 x10^6/uL (4.30-5.70) Hemoglobin 13.5 g/dL (13.0-17.5) Hematocrit 40.5 % (39.0-53.0) Mean Corpuscular Volume 90 fL (79-100) Mean Corpuscular Hemoglobin 30 pg (25-35) Mean Corpuscular Hemoglobin Concent 33 g/dL (31-37) Red Cell Distribution Width 14.6 % (11.5-14.5) Platelet Count 109 x10^3/uL (140-400) Neutrophils (%) (Auto) 88 % (31-73) Lymphocytes (%) (Auto) 4 % (24-48) Monocytes (%) (Auto) 8 % (0-9) Eosinophils (%) (Auto) 0 % (0-3) Basophils (%) (Auto) 0 % (0-3) Neutrophils # (Auto) 11.5 x10^3uL (1.8-7.7) Lymphocytes # (Auto) 0.5 x10^3/uL (1.0-4.8) Monocytes # (Auto) 1.0 x10^3/uL (0.0-1.1) Eosinophils # (Auto) 0.0 x10^3/uL (0.0-0.7) Basophils # (Auto) 0.0 x10^3/uL (0.0-0.2) Sodium Level 137 mmol/L (136-145) Potassium Level 4.3 mmol/L (3.5-5.1) Chloride Level 102 mmol/L (98-107) Carbon Dioxide Level 25 mmol/L (21-32) Anion Gap 10 (6-14) Blood Urea Nitrogen 16 mg/dL (8-26) Creatinine 0.9 mg/dL (0.7-1.3) Estimated GFR (Cockcroft-Gault) 82.3 Glucose Level 115 mg/dL (70-99) Calcium Level 8.3 mg/dL (8.5-10.1) Medications Current Medications Adenosine (Adenocard) 6 mg STK-MED ONCE IV ; Start 09/11/18 at 10:13; Stop 09/11/18 at 10:14; Status DC Adenosine (Adenocard) 12 mg 1X ONCE IV ; Start 09/11/18 at 10:15; Stop 09/11/18 at 10:17; Status DC Sodium Chloride 1,000 ml @ 1,000 mls/hr Q1H IV Last administered on 09/11/18at 10:42; Start 09/11/18 at 10:13; Stop 09/11/18 at 11:12; Status DC Adenosine (Adenocard) 6 mg 1X ONCE IV ; Start 09/11/18 at 10:15; Stop 09/11/18 at 10:17; Status DC Ondansetron HCl (Zofran) 4 mg 1X ONCE IV Last administered on 09/11/18 10:46; Start 09/11/18 at 10:45; Stop 09/11/18 at 10:46; Status DC Potassium Chloride (Klor-Con) 40 meq 1X ONCE PO Last administered on 09/11/18 13:01; Start 09/11/18 at 11:15; Stop 09/11/18 at 11:16; Status DC Aspirin (Ecotrin) 81 mg DAILY PO Last administered on 09/12/18 07:19; Start 09/11/18 at 13:00 Metoprolol Succinate (Toprol Xl) 25 mg HS PO ; Start 09/11/18 at 21:00; Stop 09/11/18 at 21:00; Status DC Ondansetron HCl (Zofran Odt) 4 mg PRN Q6HRS PRN PO NAUSEA/VOMITING Last administered on 09/12/18 16:12; Start 09/11/18 at 13:00 Pantoprazole Sodium (Protonix) 40 mg DAILYAC PO Last administered on 09/13/18at 09:36; Start 09/11/18 at 13:00 Simvastatin (Zocor) 40 mg QHS PO Last administered on 09/11/18 20:46; Start 09/11/18 at 21:00; Stop 09/12/18 at 15:50; Status DC Ondansetron HCl (Zofran) 4 mg STK-MED ONCE .ROUTE ; Start 09/11/18 at 10:46; Stop 09/11/18 at 12:12; Status DC Sodium Chloride 1,000 ml @ 100 mls/hr 1X ONCE IV Last administered on 09/11/18 13:04; Start 09/11/18 at 12:45; Stop 09/11/18 at 22:44; Status DC Iohexol (Omnipaque 240 Mg/ml) 50 ml 1X ONCE PO Last administered on 09/11/18at 14:40; Start 09/11/18 at 13:15; Stop 09/11/18 at 13:23; Status DC Iohexol (Omnipaque 300 Mg/ml) 75 ml 1X ONCE IV Last administered on 09/11/18 14:40; Start 09/11/18 at 13:15; Stop 09/11/18 at 13:23; Status DC Info (CONTRAST GIVEN -- Rx MONITORING) 1 each PRN DAILY PRN MC SEE COMMENTS; Start 09/11/18 at 13:30; Stop 09/13/18 at 13:29; Status DC Ondansetron HCl (Zofran) 4 mg PRN Q6HRS PRN IV NAUSEA/VOMITING 1ST CHOICE Last administered on 09/14/18 08:49; Start 09/11/18 at 15:00 Prochlorperazine Edisylate (Compazine) 10 mg PRN Q6HRS PRN IV NAUSEA/VOMITING 2ND CHOICE Last administered on 09/12/18 14:34; Start 09/11/18 at 15:00 Metoprolol Succinate (Toprol Xl) 50 mg HS PO Last administered on 09/12/18 20:30; Start 09/11/18 at 21:00 Morphine Sulfate (Morphine Sulfate) 2 mg PRN Q4HRS PRN IV PAIN Last administered on 09/14/18 06:24; Start 09/11/18 at 17:45 Acetaminophen/ Hydrocodone Bitart (Lortab 5/325) 1 tab PRN Q6HRS PRN PO PAIN Last administered on 09/12/18 06:43; Start 09/11/18 at 17:45 Tamsulosin HCl (Flomax) 0.4 mg DAILY PO ; Start 09/12/18 at 10:00; Stop 09/12/18 at 10:37; Status DC Polyethylene Glycol (miraLAX PACKET) 17 gm PRN DAILY PRN PO CONSTIPATION Last administered on 09/12/18 11:23; Start 09/12/18 at 09:15 Ketorolac Tromethamine (Toradol 30mg Vial) 30 mg PRN Q6HRS PRN IV PAIN; Start 09/12/18 at 10:15; Stop 09/17/18 at 10:14 Meclizine HCl (Antivert) 12.5 mg PRN Q6HRS PRN PO DIZZINESS Last administered on 09/12/18 11:23; Start 09/12/18 at 11:15 Sodium Monofluorophosphate (Fleet Adult) 133 ml 1X ONCE [place] Last administered on 09/12/18 16:13; Start 09/12/18 at 14:45; Stop 09/12/18 at 14:46; Status DC Magnesium Citrate (Citroma) 296 ml 1X ONCE PO Last administered on 09/12/18 16:12; Start 09/12/18 at 16:00; Stop 09/12/18 at 16:01; Status DC Erythromycin (E-Mycin) 500 mg TID PO Last administered on 09/13/18 09:39; Start 09/12/18 at 15:00 Neomycin Sulfate (Neomycin Sulfate) 500 mg TID PO Last administered on 09/13/18 09:39; Start 09/12/18 at 16:00 Cefoxitin Sodium (Mefoxin) 2 gm 1X PERIOP ONCE IVP Last administered on 09/13/18 12:40; Start 09/13/18 at 12:00; Stop 09/13/18 at 12:01; Status DC Atorvastatin Calcium (Lipitor) 20 mg QHS PO Last administered on 09/12/18 20:30; Start 09/12/18 at 21:00 Ondansetron HCl (Zofran) 4 mg PRN Q6HRS PRN IV NAUSEA/VOMITING; Start 09/13/18 at 07:00; Stop 09/14/18 at 06:59; Status DC Fentanyl Citrate (Fentanyl 2ml Vial) 25 mcg PRN Q5MIN PRN IV MILD PAIN; Start 09/13/18 at 07:00; Stop 09/14/18 at 06:59; Status DC Fentanyl Citrate (Fentanyl 2ml Vial) 50 mcg PRN Q5MIN PRN IV MODERATE TO SEVERE PAIN; Start 09/13/18 at 07:00; Stop 09/14/18 at 06:59; Status DC Morphine Sulfate (Morphine Sulfate) 1 mg PRN Q10MIN PRN IV SEVERE PAIN; Start 09/13/18 at 07:00; Stop 09/14/18 at 06:59; Status DC Ringer's Solution 1,000 ml @ 30 mls/hr Q24H IV Last administered on 09/13/18at 06:32; Start 09/13/18 at 07:00; Stop 09/13/18 at 16:44; Status DC Lidocaine HCl (Xylocaine-Mpf 1% 2ml Vial) 2 ml PRN 1X PRN ID PRIOR TO IV START; Start 09/13/18 at 07:00; Stop 09/14/18 at 06:59; Status DC Hydromorphone HCl (Dilaudid) 0.5 mg PRN Q10MIN PRN IV SEV PAIN, Second choice; Start 09/13/18 at 07:00; Stop 09/14/18 at 06:59; Status DC Prochlorperazine Edisylate (Compazine) 5 mg PACU PRN PRN IV NAUSEA, MRX1; Start 09/13/18 at 07:00; Stop 09/14/18 at 06:59; Status DC Lorazepam (Ativan) 0.5 mg PRN Q6HRS PRN IV ANXIETY / AGITATION Last administered on 09/13/18at 20:04; Start 09/12/18 at 19:45 Bupivacaine HCl/ Epinephrine Bitart (Sensorcain-Mpf Epi 0.5%-[id number]) 30 ml STK-MED ONCE .ROUTE Last administered on 09/13/18at 13:10; Start 09/13/18 at 10:55; Stop 09/13/18 at 11:55; Status DC Rocuronium [place] (Zemuron) 50 mg STK-MED ONCE .ROUTE ; Start 09/13/18 at 12:09; Stop 09/13/18 at 12:10; Status DC Midazolam HCl (Versed) 2 mg STK-MED ONCE .ROUTE ; Start 09/13/18 at 12:09; Stop 09/13/18 at 12:10; Status DC Fentanyl Citrate (Fentanyl 5ml Vial) 250 mcg STK-MED ONCE .ROUTE ; Start 09/13/18 at 12:09; Stop 09/13/18 at 12:10; Status DC Propofol 20 ml @ As Directed STK-MED ONCE IV ; Start 09/13/18 at 12:11; Stop 09/13/18 at 12:12; Status DC Lidocaine HCl (Lidocaine Pf 2% Vial) 5 ml STK-MED ONCE .ROUTE ; Start 09/13/18 at 12:11; Stop 09/13/18 at 12:12; Status DC Ondansetron HCl (Zofran) 4 mg STK-MED ONCE .ROUTE ; Start 09/13/18 at 12:11; Stop 09/13/18 at 12:12; Status DC Dexamethasone Sodium Phosphate (Decadron) 4 mg STK-MED ONCE .ROUTE ; Start 09/13/18 at 12:11; Stop 09/13/18 at 12:12; Status DC Cefoxitin Sodium (Mefoxin) 2 gm 1X ONCE IVP Last administered on 09/13/18at 14:40; Start 09/13/18 at 12:15; Stop 09/13/18 at 12:16; Status DC Ephedrine Sulfate (ePHEDrine PF IN SALINE SYRINGE) 50 mg STK-MED ONCE IV ; Start 09/13/18 at 12:51; Stop 09/13/18 at 12:52; Status DC Phenylephrine HCl (PHENYLEPHRINE in 0.9% NACL PF) 1 mg STK-MED ONCE IV ; Start 09/13/18 at 12:51; Stop 09/13/18 at 12:52; Status DC Rocuronium [place] (Zemuron) 50 mg STK-MED ONCE .ROUTE ; Start 09/13/18 at 13:36; Stop 09/13/18 at 13:37; Status DC Fentanyl Citrate (Fentanyl 5ml Vial) 250 mcg STK-MED ONCE .ROUTE ; Start 09/13/18 at 13:51; Stop 09/13/18 at 13:52; Status DC Neostigmine Methylsulfate (Neostigmine Methylsulfate) 5 mg STK-MED ONCE .ROUTE ; Start 09/13/18 at 13:57; Stop 09/13/18 at 13:58; Status DC Glycopyrrolate (Robinul) 1 mg STK-MED ONCE .ROUTE ; Start 09/13/18 at 13:57; Stop 09/13/18 at 13:58; Status DC Esmolol HCl (Brevibloc) 100 mg STK-MED ONCE IVP ; Start 09/13/18 at 14:00; Stop 09/13/18 at 14:01; Status DC Sevoflurane (Ultane) 90 ml STK-MED ONCE IH ; Start 09/13/18 at 14:19; Stop 09/13/18 at 14:20; Status DC Enoxaparin Sodium (Lovenox 40mg Syringe) 40 mg Q24H SQ ; Start 09/13/18 at 16:00; Status Cancel Sodium Chloride (Normal Saline Flush) 3 ml QSHIFT PRN IV AFTER MEDS AND BLOOD D RAWS; Start 09/13/18 at 15:15 Ringer's Solution 1,000 ml @ 100 mls/hr Q10H IV Last administered on 09/14/18at 01:04; Start 09/13/18 at 15:04 Naloxone HCl (Narcan) 0.4 mg PRN Q2MIN PRN IV SEE INSTRUCTIONS; Start 09/13/18 at 15:15 Sodium Chloride 1,000 ml @ 25 mls/hr Q24H IV ; Start 09/13/18 at 15:04 Morphine Sulfate 30 ml @ 0 mls/hr CONT PRN PRN IV PER PROTOCOL; Start 09/13/18 at 15:15 Lidocaine HCl (Lidocaine HCl 2% Abboject) 100 mg STK-MED ONCE .ROUTE ; Start 09/13/18 at 15:35; Stop 09/13/18 at 15:36; Status DC Lidocaine HCl (Lidocaine HCl 2% Abboject) 100 mg 1X ONCE IV Last administered on 09/13/18at 15:45; Start 09/13/18 at 15:45; Stop 09/13/18 at 15:46; Status DC Enoxaparin Sodium (Lovenox 40mg Syringe) 40 mg Q24H SQ Last administered on 09/14/18at 08:50; Start 09/14/18 at 09:00 Metoprolol Tartrate (Lopressor Vial) 5 mg Q8HRS IVP Last administered on 09/14/18at 06:19; Start 09/14/18 at 06:00 Metoprolol Tartrate (Lopressor Vial) 5 mg 1X ONCE IVP Last administered on 09/13/18at 18:42; Start 09/13/18 at 18:45; Stop 09/13/18 at 18:46; Status DC Active Scripts Active Ondansetron Odt (Ondansetron) 4 Mg Tab.rapdis 1 Tab PO PRN Q6-8HRS Protonix (Pantoprazole Sodium) 40 Mg Tablet. 1 Tab PO DAILY Reported Zocor (Simvastatin) 40 Mg Tablet 40 Mg PO HS Toprol Xl (Metoprolol Succinate) 25 Mg Tab.er.24h 25 Mg PO HS Aspir 81 (Aspirin) 81 Mg Tablet.dr 81 Mg PO DAILY Vitals/I & O Vital Sign - Last 24 Hours 09/13/18 09/13/18 09/13/18 09/13/18 11:00 12:05 15:06 15:06 Temp 98.1 99.2 97.5 98.1 99.2 97.5 Pulse 85 89 88 Resp 18 18 17 B/P (MAP) 145/87 (106) 135/73 131/61 Pulse Ox 98 93 100 O2 Delivery Room Air Room Air Simple Mask Mask O2 Flow Rate 8.0 8.0 09/13/18 09/13/18 09/13/18 09/13/18 15:15 15:30 15:45 15:45 Temp 98.4 97.5 98.4 98.4 97.5 98.4 Pulse 88 98 101 98 Resp B/P (MAP) 117/47 94/29 102/34 102/34 Pulse Ox 100 100 99 O2 Delivery Simple Mask Simple Mask Simple Mask O2 Flow Rate 8.0 8.0 8.0 09/13/18 09/13/18 09/13/18 09/13/18 16:00 16:30 16:45 17:00 Temp 98.4 98.4 Pulse 100 106 102 106 Resp B/P (MAP) 92/40 138/68 (91) 113/60 (77) 128/73 (91) Pulse Ox 94 O2 Delivery Nasal Cannula O2 Flow Rate 2.0 09/13/18 09/13/18 09/13/18 09/13/18 17:15 17:30 18:00 18:37 Pulse 110 114 112 B/P (MAP) 135/68 (90) 142/69 (93) 144/71 (95) O2 Delivery Room Air 09/13/18 09/13/18 09/13/18 09/13/18 18:42 19:21 19:57 20:00 Temp 97.9 97.9 Pulse 112 104 104 Resp 18 B/P (MAP) 144/71 135/75 (95) 135/75 Pulse Ox 98 O2 Delivery Room Air Nasal Cannula O2 Flow Rate 2.0 09/13/18 09/14/18 09/14/18 09/14/18 23:00 02:06 03:00 06:19 Temp 97.9 98.0 97.9 98.0 Pulse 109 103 103 Resp 24 22 B/P (MAP) 125/86 (99) 143/76 (98) 143/76 Pulse Ox 98 98 98 O2 Delivery Nasal Cannula Nasal Cannula Nasal Cannula O2 Flow Rate 2.0 2.0 2.0 09/14/18 09/14/18 09/14/18 06:24 07:00 07:00 Temp 98.7 98.7 Pulse 94 Resp 16 B/P (MAP) 122/67 (85) Pulse Ox 98 98 97 O2 Delivery Nasal Cannula Nasal Cannula Room Air O2 Flow Rate 2.0 2.0 Intake and Output 09/13/18 09/13/18 09/14/18 15:00 23:00 07:00 Intake Total 1400 ml 1475 ml Output Total 800 ml 800 ml Balance 600 ml 675 ml TITO DESAI III DO September 14, 2018 10:52
[2018-09-14 11:00] VITALS: BP 111/59
[2018-09-14] MEDS ORDERED: PANTOPRAZOLE IV PUSH 40 MG VIAL. IVP ONE (12:00)
[2018-09-14] MEDS: AMINO AC 3%/ELECTROLYTE/GLYCER 1,000 ML IV SCH (12:04)
--- NOTE | 2018-09-14 12:29 | PDOC ---
Subjective: Subjective: Wants something to eat. No flatus. Sore on right side. Hurts to breathe deeply. Objective: Objective: Reviewed op note - redundant right hepatic flexure extending well up above the liver, no obvious masses, no obvious volvulus, no bowel compromise, normal gallbladder, normal liver, although somewhat unusual shape Vital Signs: Vital Signs Date Time Temp Pulse Resp B/P (MAP) Pulse Ox O2 Delivery O2 Flow Rate FiO2 09/14/18 12:10 98 Room Air 2.0 09/14/18 11:00 98.8 101 16 111/59 (76) 98.8 Labs: Laboratory Tests Test 09/13/18 16:05 09/14/18 04:30 Glucose (Fingerstick) 107 mg/dL White Blood Count 13.1 x10^3/uL Red Blood Count 4.51 x10^6/uL Hemoglobin 13.5 g/dL Hematocrit 40.5 % Mean Corpuscular Volume 90 fL Mean Corpuscular Hemoglobin 30 pg Mean Corpuscular Hemoglobin Concent 33 g/dL Red Cell Distribution Width 14.6 % Platelet Count 109 x10^3/uL Neutrophils (%) (Auto) 88 % Lymphocytes (%) (Auto) 4 % Monocytes (%) (Auto) 8 % Eosinophils (%) (Auto) 0 % Basophils (%) (Auto) 0 % Neutrophils # (Auto) 11.5 x10^3uL Lymphocytes # (Auto) 0.5 x10^3/uL Monocytes # (Auto) 1.0 x10^3/uL Eosinophils # (Auto) 0.0 x10^3/uL Basophils # (Auto) 0.0 x10^3/uL Sodium Level 137 mmol/L Potassium Level 4.3 mmol/L Chloride Level 102 mmol/L Carbon Dioxide Level 25 mmol/L Anion Gap 10 Blood Urea Nitrogen 16 mg/dL Creatinine 0.9 mg/dL Estimated GFR (Cockcroft-Gault) 82.3 Glucose Level 115 mg/dL Calcium Level 8.3 mg/dL PE: GEN: up to chair, a bit uncomfortable LUNGS: room air HEART: irregular ABD: quiet, tender over dressing NEURO/PSYCH: A & O 3 A/P: Chilaiditi's syndrome s/p right hemicolectomy -- Supportive care, continue per surgery. On PPN and IV PPI. JORDON RODARTE 9, 2019 12:29
[2018-09-14] MEDS: IV NORMAL SALINE 1000ML BAG 1,000 ML IV SCH (14:53)
[2018-09-14 15:00] VITALS: BP 105/50
[2018-09-14 19:59] VITALS: BP 113/72
[2018-09-14] MEDS: ATORVASTATIN CALCIUM 20 MG TABLET PO SCH (20:38)
--- NOTE | 2018-09-14 21:15 | NUR ---
Pt was transferring from recliner to bed when pts rate/rhythm changed from SR/multifocal PVC's to SVT (180's). Pt became very anxious and restless, 2200 scheduled dose of 5mg IV metoprolol was given early with positive results. Pts HR slowed to 100 in 10 minutes, continued to monitor b/p and HR closely, 0.5mg IV ativan was administered to assist with pts anxiety. Bed in low/locked position, call light within reach, bed alarm activated. Will continue to monitor for status changes.
[2018-09-14 23:00] VITALS: BP 96/60
[2018-09-15] MEDS: AMINO AC 3%/ELECTROLYTE/GLYCER 1,000 ML IV SCH ×2 (03:02→18:10)
[2018-09-15 03:23] VITALS: BP 115/75
[2018-09-15] MEDS: MORPHINE SULFATE 2 MG/ML VIAL. IV PRN ×3 (03:28→15:21)
[2018-09-15 04:43] LABS: BASO % 0 % (0-3); EOS % 1 % (0-3); HEMOGLOBIN 12.8 g/dL (13.0-17.5); LYMPH # 1.1 x10^3/uL (1.0-4.8); LYMPH % 13 % (24-48); MEAN CORPUSCULAR HEMOGLOBIN 30 pg (25-35); MEAN CORPUSCULAR HGB CONC 33 g/dL (31-37); MEAN CORPUSCULAR VOLUME 90 fL (79-100); MONO # 0.8 x10^3/uL (0.0-1.1); MONO % 10 % (0-9); NEUT # 6.5 x10^3uL (1.8-7.7); NEUT % 77 % (31-73); PLATELET COUNT 97 x10^3/uL (140-400); RED BLOOD COUNT 4.33 x10^6/uL (4.30-5.70); RED CELL DISTRIBUTION WIDTH 15.1 % (11.5-14.5); WHITE BLOOD COUNT 8.4 x10^3/uL (4.0-11.0)
[2018-09-15 04:52] LABS: CALCIUM 8.3 mg/dL (8.5-10.1); CREATININE 0.9 mg/dL (0.7-1.3); GFR 82.3; POTASSIUM 4.1 mmol/L (3.5-5.1)
[2018-09-15] MEDS: METOPROLOL TARTRATE 5 MG/5 ML VIAL. IVP SCH (05:48)
[2018-09-15 07:00] VITALS: BP 119/79
[2018-09-15] MEDS: ENOXAPARIN 40 MG/0.4 ML SYRINGE. SQ SCH (07:28)
[2018-09-15] MEDS: ASPIRIN ENTERIC COATED 81 MG TABLET.DR. PO SCH (07:28)
[2018-09-15] MEDS: PANTOPRAZOLE IV PUSH 40 MG VIAL. IVP SCH (07:28)
[2018-09-15] MEDS: ONDANSETRON PF 4 MG/2 ML VIAL. IV PRN ×2 (07:39→18:34)
--- NOTE | 2018-09-15 08:07 | PDOC ---
SURGICAL PROGRESS NOTE Subjective Pt with c/o mild nausea, incisional pain, no emesis, no flatus, noted SVT last night, now stable Vital Signs Vital Signs Date Time Temp Pulse Resp B/P (MAP) Pulse Ox O2 Delivery O2 Flow Rate FiO2 09/15/18 07:31 91 Room Air 09/15/18 07:00 99.3 80 18 119/79 (92) 99.3 09/15/18 04:00 2.0 I&O Intake and Output 09/15/18 07:00 Intake Total 1340 ml Output Total 1900 ml Balance -560 ml Intake Oral 0 ml IV Total 1340 ml Output Urine Total 1900 ml PATIENT HAS A [place]: Yes (d/c today) General: Alert, Oriented X3, Cooperative, No acute distress Abdomen: Soft, Other (appropriate TTP, no peritoneal signs, dressing intact) Labs Laboratory Tests Test 09/13/18 16:05 09/14/18 04:30 09/15/18 04:30 Glucose (Fingerstick) 107 mg/dL (70-99) White Blood Count 13.1 x10^3/uL (4.0-11.0) 8.4 x10^3/uL (4.0-11.0) Red Blood Count 4.51 x10^6/uL (4.30-5.70) 4.33 x10^6/uL (4.30-5.70) Hemoglobin 13.5 g/dL (13.0-17.5) 12.8 g/dL (13.0-17.5) Hematocrit 40.5 % (39.0-53.0) 39.0 % (39.0-53.0) Mean Corpuscular Volume 90 fL (79-100) 90 fL (79-100) Mean Corpuscular Hemoglobin 30 pg (25-35) 30 pg (25-35) Mean Corpuscular Hemoglobin Concent 33 g/dL (31-37) 33 g/dL (31-37) Red Cell Distribution Width 14.6 % (11.5-14.5) 15.1 % (11.5-14.5) Platelet Count 109 x10^3/uL (140-400) 97 x10^3/uL (140-400) Neutrophils (%) (Auto) 88 % (31-73) 77 % (31-73) Lymphocytes (%) (Auto) 4 % (24-48) 13 % (24-48) Monocytes (%) (Auto) 8 % (0-9) 10 % (0-9) Eosinophils (%) (Auto) 0 % (0-3) 1 % (0-3) Basophils (%) (Auto) 0 % (0-3) 0 % (0-3) Neutrophils # (Auto) 11.5 x10^3uL (1.8-7.7) 6.5 x10^3uL (1.8-7.7) Lymphocytes # (Auto) 0.5 x10^3/uL (1.0-4.8) 1.1 x10^3/uL (1.0-4.8) Monocytes # (Auto) 1.0 x10^3/uL (0.0-1.1) 0.8 x10^3/uL (0.0-1.1) Eosinophils # (Auto) 0.0 x10^3/uL (0.0-0.7) 0.0 x10^3/uL (0.0-0.7) Basophils # (Auto) 0.0 x10^3/uL (0.0-0.2) 0.0 x10^3/uL (0.0-0.2) Sodium Level 137 mmol/L (136-145) 135 mmol/L (136-145) Potassium Level 4.3 mmol/L (3.5-5.1) 4.1 mmol/L (3.5-5.1) Chloride Level 102 mmol/L (98-107) 101 mmol/L (98-107) Carbon Dioxide Level 25 mmol/L (21-32) 27 mmol/L (21-32) Anion Gap 10 (6-14) 7 (6-14) Blood Urea Nitrogen 16 mg/dL (8-26) 21 mg/dL (8-26) Creatinine 0.9 mg/dL (0.7-1.3) 0.9 mg/dL (0.7-1.3) Estimated GFR (Cockcroft-Gault) 82.3 82.3 Glucose Level 115 mg/dL (70-99) 108 mg/dL (70-99) Calcium Level 8.3 mg/dL (8.5-10.1) 8.3 mg/dL (8.5-10.1) Laboratory Tests Test 09/15/18 04:30 White Blood Count 8.4 x10^3/uL (4.0-11.0) Red Blood Count 4.33 x10^6/uL (4.30-5.70) Hemoglobin 12.8 g/dL (13.0-17.5) Hematocrit 39.0 % (39.0-53.0) Mean Corpuscular Volume 90 fL (79-100) Mean Corpuscular Hemoglobin 30 pg (25-35) Mean Corpuscular Hemoglobin Concent 33 g/dL (31-37) Red Cell Distribution Width 15.1 % (11.5-14.5) Platelet Count 97 x10^3/uL (140-400) Neutrophils (%) (Auto) 77 % (31-73) Lymphocytes (%) (Auto) 13 % (24-48) Monocytes (%) (Auto) 10 % (0-9) Eosinophils (%) (Auto) 1 % (0-3) Basophils (%) (Auto) 0 % (0-3) Neutrophils # (Auto) 6.5 x10^3uL (1.8-7.7) Lymphocytes # (Auto) 1.1 x10^3/uL (1.0-4.8) Monocytes # (Auto) 0.8 x10^3/uL (0.0-1.1) Eosinophils # (Auto) 0.0 x10^3/uL (0.0-0.7) Basophils # (Auto) 0.0 x10^3/uL (0.0-0.2) Sodium Level 135 mmol/L (136-145) Potassium Level 4.1 mmol/L (3.5-5.1) Chloride Level 101 mmol/L (98-107) Carbon Dioxide Level 27 mmol/L (21-32) Anion Gap 7 (6-14) Blood Urea Nitrogen 21 mg/dL (8-26) Creatinine 0.9 mg/dL (0.7-1.3) Estimated GFR (Cockcroft-Gault) 82.3 Glucose Level 108 mg/dL (70-99) Calcium Level 8.3 mg/dL (8.5-10.1) Problem List Problems Medical Problems: (1) Hypokalemia Status: Acute Assessment/Plan s/p right colectomy start clears, remove [place], OOB await bowel fxn ANDREA DUNCAN MD September 15, 2018 08:07
--- NOTE | 2018-09-15 10:09 | PDOC ---
Subjective: Subjective: Quite a bit of pain, belching but no flatus. Objective: Objective: Reviewed w/ RN - tried some clears, c/o pain and wanted to get back in bed. Vital Signs: Vital Signs Date Time Temp Pulse Resp B/P (MAP) Pulse Ox O2 Delivery O2 Flow Rate FiO2 09/15/18 08:11 91 Room Air 09/15/18 07:00 99.3 80 18 119/79 (92) 99.3 09/15/18 04:00 2.0 Labs: Laboratory Tests Test 09/15/18 04:30 White Blood Count 8.4 x10^3/uL Red Blood Count 4.33 x10^6/uL Hemoglobin 12.8 g/dL Hematocrit 39.0 % Mean Corpuscular Volume 90 fL Mean Corpuscular Hemoglobin 30 pg Mean Corpuscular Hemoglobin Concent 33 g/dL Red Cell Distribution Width 15.1 % Platelet Count 97 x10^3/uL Neutrophils (%) (Auto) 77 % Lymphocytes (%) (Auto) 13 % Monocytes (%) (Auto) 10 % Eosinophils (%) (Auto) 1 % Basophils (%) (Auto) 0 % Neutrophils # (Auto) 6.5 x10^3uL Lymphocytes # (Auto) 1.1 x10^3/uL Monocytes # (Auto) 0.8 x10^3/uL Eosinophils # (Auto) 0.0 x10^3/uL Basophils # (Auto) 0.0 x10^3/uL Sodium Level 135 mmol/L Potassium Level 4.1 mmol/L Chloride Level 101 mmol/L Carbon Dioxide Level 27 mmol/L Anion Gap 7 Blood Urea Nitrogen 21 mg/dL Creatinine 0.9 mg/dL Estimated GFR (Cockcroft-Gault) 82.3 Glucose Level 108 mg/dL Calcium Level 8.3 mg/dL PE: GEN: resting, looks a bit uncomfortable LUNGS: room air HEART: RR ABD: dressing, tender NEURO/PSYCH: A & O 3 A/P: Chilaiditi's syndrome s/p right hemicolectomy -- Trying clears, continue per surgery. Can change to PO PPI once reliably eating. JORDON RODARTE September 15, 2018 10:09
--- NOTE | 2018-09-15 10:34 | PDOC ---
TERRY PUENTE WORKDAY CONSULTANT 09/15/18 1034: CARDIO Progress Notes Date and Time Date of Service 09/15/2018 Time of Evaluation 1010 Subjective Subjective: No Chest Pain, No shortness of breath, No Palpitations, Other (compalins of surgical abd pain) Vitals Vitals Vital Signs Date Time Temp Pulse Resp B/P (MAP) Pulse Ox O2 Delivery O2 Flow Rate FiO2 09/15/18 08:11 91 Room Air 09/15/18 07:00 99.3 80 18 119/79 (92) 99.3 09/15/18 04:00 2.0 Weight Weight [ ] Input and Output Intake and Output Intake and Output 09/15/18 07:00 Intake Total 1340 ml Output Total 1900 ml Balance -560 ml Intake Oral 0 ml IV Total 1340 ml Output Urine Total 1900 ml Laboratory Labs Laboratory Tests Test 09/15/18 04:30 White Blood Count 8.4 x10^3/uL (4.0-11.0) Red Blood Count 4.33 x10^6/uL (4.30-5.70) Hemoglobin 12.8 g/dL (13.0-17.5) Hematocrit 39.0 % (39.0-53.0) Mean Corpuscular Volume 90 fL (79-100) Mean Corpuscular Hemoglobin 30 pg (25-35) Mean Corpuscular Hemoglobin Concent 33 g/dL (31-37) Red Cell Distribution Width 15.1 % (11.5-14.5) Platelet Count 97 x10^3/uL (140-400) Neutrophils (%) (Auto) 77 % (31-73) Lymphocytes (%) (Auto) 13 % (24-48) Monocytes (%) (Auto) 10 % (0-9) Eosinophils (%) (Auto) 1 % (0-3) Basophils (%) (Auto) 0 % (0-3) Neutrophils # (Auto) 6.5 x10^3uL (1.8-7.7) Lymphocytes # (Auto) 1.1 x10^3/uL (1.0-4.8) Monocytes # (Auto) 0.8 x10^3/uL (0.0-1.1) Eosinophils # (Auto) 0.0 x10^3/uL (0.0-0.7) Basophils # (Auto) 0.0 x10^3/uL (0.0-0.2) Sodium Level 135 mmol/L (136-145) Potassium Level 4.1 mmol/L (3.5-5.1) Chloride Level 101 mmol/L (98-107) Carbon Dioxide Level 27 mmol/L (21-32) Anion Gap 7 (6-14) Blood Urea Nitrogen 21 mg/dL (8-26) Creatinine 0.9 mg/dL (0.7-1.3) Estimated GFR (Cockcroft-Gault) 82.3 Glucose Level 108 mg/dL (70-99) Calcium Level 8.3 mg/dL (8.5-10.1) Physical Exam HEENT: Neck Supple W Full Motion Chest: Symmetric LUNGS: Other (basilar crackles) Heart: S1S2, RRR (SR) Abdomen: Other (abdominal surgical incision) Extremities: No Calf Tenderness Neurology: alert, oriented, follow commands Assessment Assessment 1. PSVT: another run overnight. Presently SR with PVCs, this is reactive post op with inadequate BB dosing. 2. Abdominal pain, nausea/vomiting. Recent scope unrevealing. CT abdomen/pelvic pending 3. CAD s/p PCI/stent to RCA. Stable. CP free. Recent echo with preserved LV systolic function. Patient declined stress test last month as per record review. Cath 10/2016 with patent stent as noted above. 4. Hypertension; controlled 5. Hyperlipidemia 6. Noncompliance 7. Chilaiditi's syndrome s/p right hemicolectomy: POD#2 tolerated procedure. Recommendations 1. Cardiac ablation has been recommended in past, but patient deferred. Outpa tient monitor recommended 08/2018 at due to high PVC burden, but patient declined. encouraged to consider. Follow up with cardiology 2. Currently on metoprolol IV q8 which is much lower than his previous toprol XL dosing per equivalence which will be resumed once PO is allowed. Meantime extra dose of metoprolol IV PRN. 3. Maintain pain control and hydration. Check Mg and replace as warranted. 4. Further secondary prevention. ASA, statin therapy once PO allowed 5. Consider outpatient ischemic evaluation and event monitor to note arrhythmia burden if patient would agree/comply. 6. Encourage compliance 7. Toprol once allowed to start off at 25 bid then change to 50 daily tomorrow if BP is consistently adequate. ELSIE TORRES MD 09/15/18 1039: CARDIO Progress Notes Assessment Assessment Patient seen and examined. Agree with WATER SPONGER's assessment and plan. Episode of SVT on telemetry last night noted. Presently in sinus rhythm GI team trying clear liquids today. Continue beta blockers intravenously for now and change to by mouth when able and increase dose as blood pressure tolerates If SVT is recurrent, we will consider initiation of antiarrhythmic therapy LV systolic function normal. Plan for outpatient ischemic evaluation and event monitor recording TERRY PUENTE APRN September 15, 2018 10:34 ELSIE TORRES MD September 15, 2018 10:39
[2018-09-15 10:43] VITALS: BP 112/64
[2018-09-15] MEDS: METOPROLOL SUCC 24HR ER 25 MG TAB.ER.24H. PO SCH ×2 (11:45→20:30)
[2018-09-15] MEDS: HYDROcodone/APAP 5/325MG 1 TAB TABLET PO PRN ×2 (11:45→19:54)
--- NOTE | 2018-09-15 12:01 | PDOC ---
[facility] PROGRESS NOTE Chief Complaint Chief Complaint Postop day 2 colon resection Chilaiditi Syndrome RLQ pain/R flank pain nephrolithiasis L renal cyst GERD HLD HTN OA hx of [place] Prior back surgery History of Present Illness History of Present Illness Patient seen and examined Wound dressing clean and intact S/P partial colon resection p.o. day 2 No post op BM Discussed with nurse Patient has abdominal pain likely incisional pain Vitals Vitals Vital Signs Date Time Temp Pulse Resp B/P (MAP) Pulse Ox O2 Delivery O2 Flow Rate FiO2 09/15/18 11:45 102 112/64 09/15/18 11:45 93 Room Air 09/15/18 10:43 98.6 18 98.6 09/15/18 04:00 2.0 Physical Exam General: Alert, Oriented X3, Cooperative, No acute distress Heart: Regular rate, Normal S1, Normal S2, Other (2/6 systolic murmur) Lungs: Clear Abdomen: Soft, Other (appropriate TTP, no peritoneal signs, dressing intact) Extremities: No clubbing, No cyanosis Skin: No rashes, No breakdown Labs LABS Laboratory Tests Test 09/15/18 04:30 White Blood Count 8.4 x10^3/uL (4.0-11.0) Red Blood Count 4.33 x10^6/uL (4.30-5.70) Hemoglobin 12.8 g/dL (13.0-17.5) Hematocrit 39.0 % (39.0-53.0) Mean Corpuscular Volume 90 fL (79-100) Mean Corpuscular Hemoglobin 30 pg (25-35) Mean Corpuscular Hemoglobin Concent 33 g/dL (31-37) Red Cell Distribution Width 15.1 % (11.5-14.5) Platelet Count 97 x10^3/uL (140-400) Neutrophils (%) (Auto) 77 % (31-73) Lymphocytes (%) (Auto) 13 % (24-48) Monocytes (%) (Auto) 10 % (0-9) Eosinophils (%) (Auto) 1 % (0-3) Basophils (%) (Auto) 0 % (0-3) Neutrophils # (Auto) 6.5 x10^3uL (1.8-7.7) Lymphocytes # (Auto) 1.1 x10^3/uL (1.0-4.8) Monocytes # (Auto) 0.8 x10^3/uL (0.0-1.1) Eosinophils # (Auto) 0.0 x10^3/uL (0.0-0.7) Basophils # (Auto) 0.0 x10^3/uL (0.0-0.2) Sodium Level 135 mmol/L (136-145) Potassium Level 4.1 mmol/L (3.5-5.1) Chloride Level 101 mmol/L (98-107) Carbon Dioxide Level 27 mmol/L (21-32) Anion Gap 7 (6-14) Blood Urea Nitrogen 21 mg/dL (8-26) Creatinine 0.9 mg/dL (0.7-1.3) Estimated GFR (Cockcroft-Gault) 82.3 Glucose Level 108 mg/dL (70-99) Calcium Level 8.3 mg/dL (8.5-10.1) Magnesium Level 2.1 mg/dL (1.8-2.4) Review of Systems Review of Systems Denies peripheral swelling Denies TAO Assessment and Plan Assessmemt and Plan Problems Medical Problems: (1) Hypokalemia Status: Acute Assessment: Postop day 2 partial colon resection Chilaiditi Syndrome RLQ pain/R flank pain nephrolithiasis L renal cyst GERD HLD HTN OA hx of TN Prior back surgery Plan: Wound care Cardiac monitoring ProcalAmine Hope to advance diet soon when okay with surgery PRN pain medication Home meds Labs PT/OT DVT ppx Full code Cardiology, GI, Surgery and Urology following Comment Review of Relevant I have reviewed the following items jensen (where applicable) has been applied. Labs Laboratory Tests Test 09/13/18 16:05 09/14/18 04:30 09/15/18 04:30 Glucose (Fingerstick) 107 mg/dL (70-99) White Blood Count 13.1 x10^3/uL (4.0-11.0) 8.4 x10^3/uL (4.0-11.0) Red Blood Count 4.51 x10^6/uL (4.30-5.70) 4.33 x10^6/uL (4.30-5.70) Hemoglobin 13.5 g/dL (13.0-17.5) 12.8 g/dL (13.0-17.5) Hematocrit 40.5 % (39.0-53.0) 39.0 % (39.0-53.0) Mean Corpuscular Volume 90 fL (79-100) 90 fL (79-100) Mean Corpuscular Hemoglobin 30 pg (25-35) 30 pg (25-35) Mean Corpuscular Hemoglobin Concent 33 g/dL (31-37) 33 g/dL (31-37) Red Cell Distribution Width 14.6 % (11.5-14.5) 15.1 % (11.5-14.5) Platelet Count 109 x10^3/uL (140-400) 97 x10^3/uL (140-400) Neutrophils (%) (Auto) 88 % (31-73) 77 % (31-73) Lymphocytes (%) (Auto) 4 % (24-48) 13 % (24-48) Monocytes (%) (Auto) 8 % (0-9) 10 % (0-9) Eosinophils (%) (Auto) 0 % (0-3) 1 % (0-3) Basophils (%) (Auto) 0 % (0-3) 0 % (0-3) Neutrophils # (Auto) 11.5 x10^3uL (1.8-7.7) 6.5 x10^3uL (1.8-7.7) Lymphocytes # (Auto) 0.5 x10^3/uL (1.0-4.8) 1.1 x10^3/uL (1.0-4.8) Monocytes # (Auto) 1.0 x10^3/uL (0.0-1.1) 0.8 x10^3/uL (0.0-1.1) Eosinophils # (Auto) 0.0 x10^3/uL (0.0-0.7) 0.0 x10^3/uL (0.0-0.7) Basophils # (Auto) 0.0 x10^3/uL (0.0-0.2) 0.0 x10^3/uL (0.0-0.2) Sodium Level 137 mmol/L (136-145) 135 mmol/L (136-145) Potassium Level 4.3 mmol/L (3.5-5.1) 4.1 mmol/L (3.5-5.1) Chloride Level 102 mmol/L (98-107) 101 mmol/L (98-107) Carbon Dioxide Level 25 mmol/L (21-32) 27 mmol/L (21-32) Anion Gap 10 (6-14) 7 (6-14) Blood Urea Nitrogen 16 mg/dL (8-26) 21 mg/dL (8-26) Creatinine 0.9 mg/dL (0.7-1.3) 0.9 mg/dL (0.7-1.3) Estimated GFR (Cockcroft-Gault) 82.3 82.3 Glucose Level 115 mg/dL (70-99) 108 mg/dL (70-99) Calcium Level 8.3 mg/dL (8.5-10.1) 8.3 mg/dL (8.5-10.1) Magnesium Level 2.1 mg/dL (1.8-2.4) Laboratory Tests Test 09/15/18 04:30 White Blood Count 8.4 x10^3/uL (4.0-11.0) Red Blood Count 4.33 x10^6/uL (4.30-5.70) Hemoglobin 12.8 g/dL (13.0-17.5) Hematocrit 39.0 % (39.0-53.0) Mean Corpuscular Volume 90 fL (79-100) Mean Corpuscular Hemoglobin 30 pg (25-35) Mean Corpuscular Hemoglobin Concent 33 g/dL (31-37) Red Cell Distribution Width 15.1 % (11.5-14.5) Platelet Count 97 x10^3/uL (140-400) Neutrophils (%) (Auto) 77 % (31-73) Lymphocytes (%) (Auto) 13 % (24-48) Monocytes (%) (Auto) 10 % (0-9) Eosinophils (%) (Auto) 1 % (0-3) Basophils (%) (Auto) 0 % (0-3) Neutrophils # (Auto) 6.5 x10^3uL (1.8-7.7) Lymphocytes # (Auto) 1.1 x10^3/uL (1.0-4.8) Monocytes # (Auto) 0.8 x10^3/uL (0.0-1.1) Eosinophils # (Auto) 0.0 x10^3/uL (0.0-0.7) Basophils # (Auto) 0.0 x10^3/uL (0.0-0.2) Sodium Level 135 mmol/L (136-145) Potassium Level 4.1 mmol/L (3.5-5.1) Chloride Level 101 mmol/L (98-107) Carbon Dioxide Level 27 mmol/L (21-32) Anion Gap 7 (6-14) Blood Urea Nitrogen 21 mg/dL (8-26) Creatinine 0.9 mg/dL (0.7-1.3) Estimated GFR (Cockcroft-Gault) 82.3 Glucose Level 108 mg/dL (70-99) Calcium Level 8.3 mg/dL (8.5-10.1) Magnesium Level 2.1 mg/dL (1.8-2.4) Medications Current Medications Adenosine (Adenocard) 6 mg STK-MED ONCE IV ; Start 09/11/18 at 10:13; Stop 09/11/18 at 10:14; Status DC Adenosine (Adenocard) 12 mg 1X ONCE IV ; Start 09/11/18 at 10:15; Stop 09/11/18 at 10:17; Status DC Sodium Chloride 1,000 ml @ 1,000 mls/hr Q1H IV Last administered on 09/11/18at 10:42; Start 09/11/18 at 10:13; Stop 09/11/18 at 11:12; Status DC Adenosine (Adenocard) 6 mg 1X ONCE IV ; Start 09/11/18 at 10:15; Stop 09/11/18 at 10:17; Status DC Ondansetron HCl (Zofran) 4 mg 1X ONCE IV Last administered on 09/11/18at 10:46; Start 09/11/18 at 10:45; Stop 09/11/18 at 10:46; Status DC Potassium Chloride (Klor-Con) 40 meq 1X ONCE PO Last administered on 09/11/18at 13:01; Start 09/11/18 at 11:15; Stop 09/11/18 at 11:16; Status DC Aspirin (Ecotrin) 81 mg DAILY PO Last administered on 09/12/18at 07:19; Start 09/11/18 at 13:00 Metoprolol Succinate (Toprol Xl) 25 mg HS PO ; Start 09/11/18 at 21:00; Stop 09/11/18 at 21:00; Status DC Ondansetron HCl (Zofran Odt) 4 mg PRN Q6HRS PRN PO NAUSEA/VOMITING Last administered on 09/12/18at 16:12; Start 09/11/18 at 13:00 Pantoprazole Sodium (Protonix) 40 mg DAILYAC PO Last administered on 09/13/18at 09:36; Start 09/11/18 at 13:00; Stop 09/14/18 at 11:54; Status DC Simvastatin (Zocor) 40 mg QHS PO Last administered on 09/11/18at 20:46; Start 09/11/18 at 21:00; Stop 09/12/18 at 15:50; Status DC Ondansetron HCl (Zofran) 4 mg STK-MED ONCE .ROUTE ; Start 09/11/18 at 10:46; Stop 09/11/18 at 12:12; Status DC Sodium Chloride 1,000 ml @ 100 mls/hr 1X ONCE IV Last administered on 09/11/18at 13:04; Start 09/11/18 at 12:45; Stop 09/11/18 at 22:44; Status DC Iohexol (Omnipaque 240 Mg/ml) 50 ml 1X ONCE PO Last administered on 09/11/18at 14:40; Start 09/11/18 at 13:15; Stop 09/11/18 at 13:23; Status DC Iohexol (Omnipaque 300 Mg/ml) 75 ml 1X ONCE IV Last administered on 09/11/18at 14:40; Start 09/11/18 at 13:15; Stop 09/11/18 at 13:23; Status DC Info (CONTRAST GIVEN -- Rx MONITORING) 1 each PRN DAILY PRN MC SEE COMMENTS; Start 09/11/18 at 13:30; Stop 09/13/18 at 13:29; Status DC Ondansetron HCl (Zofran) 4 mg PRN Q6HRS PRN IV NAUSEA/VOMITING 1ST CHOICE Last administered on 09/15/18at 07:39; Start 09/11/18 at 15:00 Prochlorperazine Edisylate (Compazine) 10 mg PRN Q6HRS PRN IV NAUSEA/VOMITING 2ND CHOICE Last administered on 09/12/18 14:34; Start 09/11/18 at 15:00 Metoprolol Succinate (Toprol Xl) 50 mg HS PO Last administered on 09/12/18 20:30; Start 09/11/18 at 21:00; Stop 09/14/18 at 14:39; Status DC Morphine Sulfate (Morphine Sulfate) 2 mg PRN Q4HRS PRN IV MODERATE-SEVERE PAIN Last administered on 09/15/18 07:31; Start 09/11/18 at 17:45 Acetaminophen/ Hydrocodone Bitart (Lortab 5/325) 1 tab PRN Q6HRS PRN PO PAIN Last administered on 09/15/18 11:45; Start 09/11/18 at 17:45 Tamsulosin HCl (Flomax) 0.4 mg DAILY PO ; Start 09/12/18 at 10:00; Stop 09/12/18 at 10:37; Status DC Polyethylene Glycol (miraLAX PACKET) 17 gm PRN DAILY PRN PO CONSTIPATION Last administered on 09/12/18 11:23; Start 09/12/18 at 09:15 Ketorolac Tromethamine (Toradol 30mg Vial) 30 mg PRN Q6HRS PRN IV MILD PAIN; Start 09/12/18 at 10:15; Stop 09/17/18 at 10:14 Meclizine HCl (Antivert) 12.5 mg PRN Q6HRS PRN PO DIZZINESS Last administered on 09/12/18 11:23; Start 09/12/18 at 11:15 Sodium Monofluorophosphate (Fleet Adult) 133 ml 1X ONCE [place] Last administered on 09/12/18 16:13; Start 09/12/18 at 14:45; Stop 09/12/18 at 14:46; Status DC Magnesium Citrate (Citroma) 296 ml 1X ONCE PO Last administered on 09/12/18 16:12; Start 09/12/18 at 16:00; Stop 09/12/18 at 16:01; Status DC Erythromycin (E-Mycin) 500 mg TID PO Last administered on 09/13/18 09:39; Start 09/12/18 at 15:00; Stop 09/14/18 at 11:39; Status DC Neomycin Sulfate (Neomycin Sulfate) 500 mg TID PO Last administered on 09/13/18at 09:39; Start 09/12/18 at 16:00; Stop 09/14/18 at 11:39; Status DC Cefoxitin Sodium (Mefoxin) 2 gm 1X PERIOP ONCE IVP Last administered on 09/13/18at 12:40; Start 09/13/18 at 12:00; Stop 09/13/18 at 12:01; Status DC Atorvastatin Calcium (Lipitor) 20 mg QHS PO Last administered on 09/12/18at 20 :30; Start 09/12/18 at 21:00 Ondansetron HCl (Zofran) 4 mg PRN Q6HRS PRN IV NAUSEA/VOMITING; Start 09/13/18 at 07:00; Stop 09/14/18 at 06:59; Status DC Fentanyl Citrate (Fentanyl 2ml Vial) 25 mcg PRN Q5MIN PRN IV MILD PAIN; Start 09/13/18 at 07:00; Stop 09/14/18 at 06:59; Status DC Fentanyl Citrate (Fentanyl 2ml Vial) 50 mcg PRN Q5MIN PRN IV MODERATE TO SEVERE PAIN; Start 09/13/18 at 07:00; Stop 09/14/18 at 06:59; Status DC Morphine Sulfate (Morphine Sulfate) 1 mg PRN Q10MIN PRN IV SEVERE PAIN; Start 09/13/18 at 07:00; Stop 09/14/18 at 06:59; Status DC Ringer's Solution 1,000 ml @ 30 mls/hr Q24H IV Last administered on 09/13/18at 06:32; Start 09/13/18 at 07:00; Stop 09/13/18 at 16:44; Status DC Lidocaine HCl (Xylocaine-Mpf 1% 2ml Vial) 2 ml PRN 1X PRN ID PRIOR TO IV START; Start 09/13/18 at 07:00; Stop 09/14/18 at 06:59; Status DC Hydromorphone HCl (Dilaudid) 0.5 mg PRN Q10MIN PRN IV SEV PAIN, Second choice; Start 09/13/18 at 07:00; Stop 09/14/18 at 06:59; Status DC Prochlorperazine Edisylate (Compazine) 5 mg PACU PRN PRN IV NAUSEA, MRX1; Start 09/13/18 at 07:00; Stop 09/14/18 at 06:59; Status DC Lorazepam (Ativan) 0.5 mg PRN Q6HRS PRN IV ANXIETY / AGITATION Last administered on 09/14/18at 21:45; Start 09/12/18 at 19:45 Bupivacaine HCl/ Epinephrine Bitart (Sensorcain-Mpf Epi 0.5%-1:[id number]) 30 ml STK-MED ONCE .ROUTE Last administered on 09/13/18at 13:10; Start 09/13/18 at 10:55; Stop 09/13/18 at 11:55; Status DC Rocuronium Montgomery (Zemuron) 50 mg STK-MED ONCE .ROUTE ; Start 09/13/18 at 12:09; Stop 09/13/18 at 12:10; Status DC Midazolam HCl (Versed) 2 mg STK-MED ONCE .ROUTE ; Start 09/13/18 at 12:09; Stop 09/13/18 at 12:10; Status DC Fentanyl Citrate (Fentanyl 5ml Vial) 250 mcg STK-MED ONCE .ROUTE ; Start 09/13/18 at 12:09; Stop 09/13/18 at 12:10; Status DC Propofol 20 ml @ As Directed STK-MED ONCE IV ; Start 09/13/18 at 12:11; Stop 09/13/18 at 12:12; Status DC Lidocaine HCl (Lidocaine Pf 2% Vial) 5 ml STK-MED ONCE .ROUTE ; Start 09/13/18 at 12:11; Stop 09/13/18 at 12:12; Status DC Ondansetron HCl (Zofran) 4 mg STK-MED ONCE .ROUTE ; Start 09/13/18 at 12:11; Stop 09/13/18 at 12:12; Status DC Dexamethasone Sodium Phosphate (Decadron) 4 mg STK-MED ONCE .ROUTE ; Start 09/13/18 at 12:11; Stop 09/13/18 at 12:12; Status DC Cefoxitin Sodium (Mefoxin) 2 gm 1X ONCE IVP Last administered on 09/13/18at 14:40; Start 09/13/18 at 12:15; Stop 09/13/18 at 12:16; Status DC Ephedrine Sulfate (ePHEDrine PF IN SALINE SYRINGE) 50 mg STK-MED ONCE IV ; Start 09/13/18 at 12:51; Stop 09/13/18 at 12:52; Status DC Phenylephrine HCl (PHENYLEPHRINE in 0.9% NACL PF) 1 mg STK-MED ONCE IV ; Start 09/13/18 at 12:51; Stop 09/13/18 at 12:52; Status DC Rocuronium Montgomery (Zemuron) 50 mg STK-MED ONCE .ROUTE ; Start 09/13/18 at 13:36; Stop 09/13/18 at 13:37; Status DC Fentanyl Citrate (Fentanyl 5ml Vial) 250 mcg STK-MED ONCE .ROUTE ; Start 09/13/18 at 13:51; Stop 09/13/18 at 13:52; Status DC Neostigmine Methylsulfate (Neostigmine Methylsulfate) 5 mg STK-MED ONCE .ROUTE ; Start 09/13/18 at 13:57; Stop 09/13/18 at 13:58; Status DC Glycopyrrolate (Robinul) 1 mg STK-MED ONCE .ROUTE ; Start 09/13/18 at 13:57; Stop 09/13/18 at 13:58; Status DC Esmolol HCl (Brevibloc) 100 mg STK-MED ONCE IVP ; Start 09/13/18 at 14:00; Stop 09/13/18 at 14:01; Status DC Sevoflurane (Ultane) 90 ml STK-MED ONCE IH ; Start 09/13/18 at 14:19; Stop 09/13/18 at 14:20; Status DC Enoxaparin Sodium (Lovenox 40mg Syringe) 40 mg Q24H SQ ; Start 09/13/18 at 16:00; Status Cancel Sodium Chloride (Normal Saline Flush) 3 ml QSHIFT PRN IV AFTER MEDS AND BLOOD DRAWS; Start 09/13/18 at 15:15 Ringer's Solution 1,000 ml @ 100 mls/hr Q10H IV Last administered on 09/14/18at 01:04; Start 09/13/18 at 15:04; Stop 09/14/18 at 11:39; Status DC Naloxone HCl (Narcan) 0.4 mg PRN Q2MIN PRN IV SEE INSTRUCTIONS; Start 09/13/18 at 15:15 Sodium Chloride 1,000 ml @ 25 mls/hr Q24H IV ; Start 09/13/18 at 15:04 Morphine Sulfate 30 ml @ 0 mls/hr CONT PRN PRN IV PER PROTOCOL; Start 09/13/18 at 15:15 Lidocaine HCl (Lidocaine HCl 2% Abboject) 100 mg STK-MED ONCE .ROUTE ; Start 09/13/18 at 15:35; Stop 09/13/18 at 15:36; Status DC Lidocaine HCl (Lidocaine HCl 2% Abboject) 100 mg 1X ONCE IV Last administered on 09/13/18at 15:45; Start 09/13/18 at 15:45; Stop 09/13/18 at 15:46; Status DC Enoxaparin Sodium (Lovenox 40mg Syringe) 40 mg Q24H SQ Last administered on 09/15/18at 07:28; Start 09/14/18 at 09:00 Metoprolol Tartrate (Lopressor Vial) 5 mg Q8HRS IVP Last administered on 09/15/18at 05:48; Start 09/14/18 at 06:00; Stop 09/15/18 at 10:30; Status DC Metoprolol Tartrate (Lopressor Vial) 5 mg 1X ONCE IVP Last administered on 09/13/18at 18:42; Start 09/13/18 at 18:45; Stop 09/13/18 at 18:46; Status DC Amino Acids/ Glycerin/ Electrolytes 1,000 ml @ 75 mls/hr [id number] IV Last administered on 09/15/18at 03:02; Start 09/14/18 at 11:45 Pantoprazole Sodium (PROTONIX VIAL for IV PUSH) 40 mg DAILYAC IVP Last administered on 09/15/18at 07:28; Start 09/15/18 at 07:30 Pantoprazole Sodium (PROTONIX VIAL for IV PUSH) 40 mg 1X ONCE IVP Last administered on 09/14/18at 12:04; Start 09/14/18 at 12:00; Stop 09/14/18 at 12:01; Status DC Metoprolol Tartrate (Lopressor Vial) 5 mg PRN Q4HRS PRN IVP TACHYCARDIA; Start 09/15/18 at 10:30 Metoprolol Succinate (Toprol Xl) 25 mg BID PO Last administered on 09/15/18at 11 :45; Start 09/15/18 at 12:00 Active Scripts Active Ondansetron Odt (Ondansetron) 4 Mg Tab.rapdis 1 Tab PO PRN Q6-8HRS Protonix (Pantoprazole Sodium) 40 Mg Tablet. 1 Tab PO DAILY Reported Zocor (Simvastatin) 40 Mg Tablet 40 Mg PO HS Toprol Xl (Metoprolol Succinate) 25 Mg Tab.er.24h 25 Mg PO HS Aspir 81 (Aspirin) 81 Mg Tablet.dr 81 Mg PO DAILY Vitals/I & O Vital Sign - Last 24 Hours 09/14/18 09/14/18 09/14/18 09/14/18 14:01 15:00 16:03 19:59 Temp 99.0 98.8 99.0 98.8 Pulse 98 83 89 Resp 16 16 B/P (MAP) 111/59 105/50 (68) 113/72 (86) Pulse Ox 94 94 91 O2 Delivery Room Air Room Air Room Air O2 Flow Rate 2.0 09/14/18 09/14/18 09/14/18 09/14/18 20:00 20:32 21:20 23:00 Temp 97.9 97.9 Pulse 182 78 Resp 16 B/P (MAP) 113/72 96/60 (72) Pulse Ox 91 97 O2 Delivery Room Air Room Air Nasal Cannula O2 Flow Rate 2.0 09/15/18 09/15/18 09/15/18 09/15/18 03:23 03:28 04:00 05:48 Temp 98.0 98.0 Pulse 91 94 Resp 16 B/P (MAP) 115/75 (88) 131/54 Pulse Ox 96 97 O2 Delivery Nasal Cannula Room Air O2 Flow Rate 2.0 2.0 2.0 09/15/18 09/15/18 09/15/18 09/15/18 07:00 07:31 07:59 08:11 Temp 99.3 99.3 Pulse 80 Resp 18 B/P (MAP) 119/79 (92) Pulse Ox 91 91 91 O2 Delivery Room Air Room Air Room Air Room Air 09/15/18 09/15/18 09/15/18 10:43 11:45 11:45 Temp 98.6 98.6 Pulse 90 102 Resp 18 B/P (MAP) 112/64 (80) 112/64 Pulse Ox 93 93 O2 Delivery Room Air Room Air Intake and Output 09/14/18 09/14/18 09/15/18 15:00 23:00 07:00 Intake Total 0 ml 1340 ml Output Total 1500 ml 400 ml Balance -1500 ml 940 ml TITO DESAI III DO September 15, 2018 12:01
--- NOTE | 2018-09-15 12:32 | NUR ---
SS following up with discharge planning. PT/OT recommended [facility]. SS met with pt and spoke with pt's significant other to discuss discharge planning and [facility]. Pt's significant other was agreeable stating she could not care for pt at home due to her own medical condition and reported that pt would need to be independent once home. She requested that referral be sent to [facility], ; fax [phone], so that pt would be close to the hospital and his surgeons. Pt reported that he would be agreeable as long as significant other was agreeable. SS phoned and faxed referral to [facility]. SS will await acceptance decision and will proceed accordingly.
[2018-09-15] MEDS: IV NORMAL SALINE 1000ML BAG 1,000 ML IV SCH (15:04)
[2018-09-15 15:18] VITALS: BP 112/73
[2018-09-15 19:25] VITALS: BP 135/85
[2018-09-15] MEDS: PROCHLORPERAZINE 10 MG/2 ML VIAL. IV PRN (20:29)
[2018-09-15] MEDS: ATORVASTATIN CALCIUM 20 MG TABLET PO SCH (20:30)
[2018-09-15 22:59] VITALS: BP 111/68
[2018-09-16] MEDS: MORPHINE SULFATE 2 MG/ML VIAL. IV PRN ×5 (00:01→18:00)
[2018-09-16 03:43] VITALS: BP 119/59
[2018-09-16 03:56] LABS: BASO % 0 % (0-3); EOS % 0 % (0-3); HEMATOCRIT 42.2 % (39.0-53.0); HEMOGLOBIN 14.2 g/dL (13.0-17.5); LYMPH # 0.6 x10^3/uL (1.0-4.8); LYMPH % 6 % (24-48); MEAN CORPUSCULAR HEMOGLOBIN 30 pg (25-35); MEAN CORPUSCULAR HGB CONC 34 g/dL (31-37); MEAN CORPUSCULAR VOLUME 89 fL (79-100); MONO # 0.7 x10^3/uL (0.0-1.1); MONO % 8 % (0-9); NEUT # 7.7 x10^3uL (1.8-7.7); NEUT % 86 % (31-73); PLATELET COUNT 102 x10^3/uL (140-400); RED BLOOD COUNT 4.72 x10^6/uL (4.30-5.70); RED CELL DISTRIBUTION WIDTH 14.7 % (11.5-14.5)
[2018-09-16] MEDS: ONDANSETRON PF 4 MG/2 ML VIAL. IV PRN ×2 (04:10→08:38)
[2018-09-16 04:11] LABS: CALCIUM 8.3 mg/dL (8.5-10.1); CREATININE 0.9 mg/dL (0.7-1.3); GFR 82.3; POTASSIUM 3.8 mmol/L (3.5-5.1)
[2018-09-16] MEDS: METOPROLOL TARTRATE 5 MG/5 ML VIAL. IVP PRN ×2 (06:34→20:00)
[2018-09-16 07:00] VITALS: BP 111/79
--- NOTE | 2018-09-16 07:00 | NUR ---
At time of shift change, pt went into tachycardia that appeared to be SVT with rate of 180. Pt asymptomatic, helped pt to try to bear down. He did have intermittent periods of sinus rhythm but would go back into fast rate. PRN lopressor was given and he quickly sustained sinus rhythm. Day shift nurse Baldo has assumed care at this time.
[2018-09-16 07:11] LABS: % BANDS 3 % (0-9); % LYMPHS 9 % (24-48); % MONOS 2 % (0-10); % SEGS 86 % (35-66); PLT ESTIMATE ADEQUATE (ADEQUATE)
--- NOTE | 2018-09-16 08:07 | PDOC ---
SURGICAL PROGRESS NOTE Subjective Patient doing well minimal pain would like to have more than clear liquids states he had a bowel movement yesterday Vital Signs Vital Signs Date Time Temp Pulse Resp B/P (MAP) Pulse Ox O2 Delivery O2 Flow Rate FiO2 09/16/18 06:34 181 140/84 09/16/18 04:40 20 Room Air 09/16/18 03:43 98.5 96 98.5 I&O Intake and Output 09/16/18 07:00 Intake Total 976 ml Output Total 400 ml Balance 576 ml Intake Oral 240 ml IV Total 736 ml Output Urine Total 400 ml # Voids 3 # Bowel Movements 1 PATIENT HAS A EWING: No General: Alert, Oriented X3, Cooperative, No acute distress Abdomen: Normal bowel sounds, Soft, Other (mild incisional tenderness wounds clean dry and intact) Labs Laboratory Tests Test 09/15/18 04:30 09/16/18 03:30 White Blood Count 8.4 x10^3/uL (4.0-11.0) 9.0 x10^3/uL (4.0-11.0) Red Blood Count 4.33 x10^6/uL (4.30-5.70) 4.72 x10^6/uL (4.30-5.70) Hemoglobin 12.8 g/dL (13.0-17.5) 14.2 g/dL (13.0-17.5) Hematocrit 39.0 % (39.0-53.0) 42.2 % (39.0-53.0) Mean Corpuscular Volume 90 fL (79-100) 89 fL (79-100) Mean Corpuscular Hemoglobin 30 pg (25-35) 30 pg (25-35) Mean Corpuscular Hemoglobin Concent 33 g/dL (31-37) 34 g/dL (31-37) Red Cell Distribution Width 15.1 % (11.5-14.5) 14.7 % (11.5-14.5) Platelet Count 97 x10^3/uL (140-400) 102 x10^3/uL (140-400) Neutrophils (%) (Auto) 77 % (31-73) 86 % (31-73) Lymphocytes (%) (Auto) 13 % (24-48) 6 % (24-48) Monocytes (%) (Auto) 10 % (0-9) 8 % (0-9) Eosinophils (%) (Auto) 1 % (0-3) 0 % (0-3) Basophils (%) (Auto) 0 % (0-3) 0 % (0-3) Neutrophils # (Auto) 6.5 x10^3uL (1.8-7.7) 7.7 x10^3uL (1.8-7.7) Lymphocytes # (Auto) 1.1 x10^3/uL (1.0-4.8) 0.6 x10^3/uL (1.0-4.8) Monocytes # (Auto) 0.8 x10^3/uL (0.0-1.1) 0.7 x10^3/uL (0.0-1.1) Eosinophils # (Auto) 0.0 x10^3/uL (0.0-0.7) 0.0 x10^3/uL (0.0-0.7) Basophils # (Auto) 0.0 x10^3/uL (0.0-0.2) 0.0 x10^3/uL (0.0-0.2) Sodium Level 135 mmol/L (136-145) 132 mmol/L (136-145) Potassium Level 4.1 mmol/L (3.5-5.1) 3.8 mmol/L (3.5-5.1) Chloride Level 101 mmol/L (98-107) 98 mmol/L (98-107) Carbon Dioxide Level 27 mmol/L (21-32) 27 mmol/L (21-32) Anion Gap 7 (6-14) 7 (6-14) Blood Urea Nitrogen 21 mg/dL (8-26) 20 mg/dL (8-26) Creatinine 0.9 mg/dL (0.7-1.3) 0.9 mg/dL (0.7-1.3) Estimated GFR (Cockcroft-Gault) 82.3 82.3 Glucose Level 108 mg/dL (70-99) 151 mg/dL (70-99) Calcium Level 8.3 mg/dL (8.5-10.1) 8.3 mg/dL (8.5-10.1) Magnesium Level 2.1 mg/dL (1.8-2.4) Segmented Neutrophils % 86 % (35-66) Band Neutrophils % 3 % (0-9) Lymphocytes % 9 % (24-48) Monocytes % 2 % (0-10) Platelet Estimate Adequate (ADEQUATE) Large Platelets Present Laboratory Tests Test 09/16/18 03:30 White Blood Count 9.0 x10^3/uL (4.0-11.0) Red Blood Count 4.72 x10^6/uL (4.30-5.70) Hemoglobin 14.2 g/dL (13.0-17.5) Hematocrit 42.2 % (39.0-53.0) Mean Corpuscular Volume 89 fL (79-100) Mean Corpuscular Hemoglobin 30 pg (25-35) Mean Corpuscular Hemoglobin Concent 34 g/dL (31-37) Red Cell Distribution Width 14.7 % (11.5-14.5) Platelet Count 102 x10^3/uL (140-400) Neutrophils (%) (Auto) 86 % (31-73) Lymphocytes (%) (Auto) 6 % (24-48) Monocytes (%) (Auto) 8 % (0-9) Eosinophils (%) (Auto) 0 % (0-3) Basophils (%) (Auto) 0 % (0-3) Neutrophils # (Auto) 7.7 x10^3uL (1.8-7.7) Lymphocytes # (Auto) 0.6 x10^3/uL (1.0-4.8) Monocytes # (Auto) 0.7 x10^3/uL (0.0-1.1) Eosinophils # (Auto) 0.0 x10^3/uL (0.0-0.7) Basophils # (Auto) 0.0 x10^3/uL (0.0-0.2) Segmented Neutrophils % 86 % (35-66) Band Neutrophils % 3 % (0-9) Lymphocytes % 9 % (24-48) Monocytes % 2 % (0-10) Platelet Estimate Adequate (ADEQUATE) Large Platelets Present Sodium Level 132 mmol/L (136-145) Potassium Level 3.8 mmol/L (3.5-5.1) Chloride Level 98 mmol/L (98-107) Carbon Dioxide Level 27 mmol/L (21-32) Anion Gap 7 (6-14) Blood Urea Nitrogen 20 mg/dL (8-26) Creatinine 0.9 mg/dL (0.7-1.3) Estimated GFR (Cockcroft-Gault) 82.3 Glucose Level 151 mg/dL (70-99) Calcium Level 8.3 mg/dL (8.5-10.1) Problem List Problems Medical Problems: (1) Hypokalemia Status: Acute Assessment/Plan Status post colon resection awaiting return of bowel function will advance diet to full liquids DAQUAN HECK MD September 16, 2018 08:07
[2018-09-16] MEDS: AMINO AC 3%/ELECTROLYTE/GLYCER 1,000 ML IV SCH ×2 (08:35→22:10)
[2018-09-16] MEDS: ASPIRIN ENTERIC COATED 81 MG TABLET.DR. PO SCH (08:38)
[2018-09-16] MEDS: PANTOPRAZOLE IV PUSH 40 MG VIAL. IVP SCH (08:38)
[2018-09-16] MEDS: ENOXAPARIN 40 MG/0.4 ML SYRINGE. SQ SCH (08:39)
[2018-09-16] MEDS: KETOROLAC 30 MG/ML VIAL. IV PRN (10:54)
--- NOTE | 2018-09-16 10:55 | PDOC ---
Provider Note Provider Note S: SVT overnight. No chest pain. Exam: VSS No edema. Normal heart tones. Labs reviewed. Meds reviewed. ASA, atorvastatin, metoprolol. Impression: 1. SVT in the setting of GI issues. 2. HTN 3. CAD Plan: 1. Increase Metoprolol to 25mg p.o q6 hours. If still has recurrent SVT, then add amiodarone as he would not qualify with flecanide or other agents due his CAD. Supportive care. Will follow along. Outpt ischemic testing if/when patient agrees per prior notes. SOHA SANCHEZ MD September 16, 2018 10:55
[2018-09-16 11:00] VITALS: BP 101/70
--- NOTE | 2018-09-16 11:44 | PDOC ---
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 day 3 No post op BM Progressing to full liquid diet today Discussed with nurse Vitals Vitals Vital Signs Date Time Temp Pulse Resp B/P (MAP) Pulse Ox O2 Delivery O2 Flow Rate FiO2 09/16/18 10:00 Room Air 09/16/18 07:00 97.8 69 18 111/79 (90) 95 97.8 Physical Exam General: Alert, Oriented X3, Cooperative, No acute distress Heart: Regular rate, Normal S1, Normal S2, Other (2/6 systolic murmur, intermittant SVT) Lungs: Clear Abdomen: Normal bowel sounds, Soft, Other (mild incisional tenderness wounds clean dry and intact) Extremities: No clubbing, No cyanosis Skin: No rashes, No breakdown Labs LABS Laboratory Tests Test 09/16/18 03:30 White Blood Count 9.0 x10^3/uL (4.0-11.0) Red Blood Count 4.72 x10^6/uL (4.30-5.70) Hemoglobin 14.2 g/dL (13.0-17.5) Hematocrit 42.2 % (39.0-53.0) Mean Corpuscular Volume 89 fL (79-100) Mean Corpuscular Hemoglobin 30 pg (25-35) Mean Corpuscular Hemoglobin Concent 34 g/dL (31-37) Red Cell Distribution Width 14.7 % (11.5-14.5) Platelet Count 102 x10^3/uL (140-400) Neutrophils (%) (Auto) 86 % (31-73) Lymphocytes (%) (Auto) 6 % (24-48) Monocytes (%) (Auto) 8 % (0-9) Eosinophils (%) (Auto) 0 % (0-3) Basophils (%) (Auto) 0 % (0-3) Neutrophils # (Auto) 7.7 x10^3uL (1.8-7.7) Lymphocytes # (Auto) 0.6 x10^3/uL (1.0-4.8) Monocytes # (Auto) 0.7 x10^3/uL (0.0-1.1) Eosinophils # (Auto) 0.0 x10^3/uL (0.0-0.7) Basophils # (Auto) 0.0 x10^3/uL (0.0-0.2) Segmented Neutrophils % 86 % (35-66) Band Neutrophils % 3 % (0-9) Lymphocytes % 9 % (24-48) Monocytes % 2 % (0-10) Platelet Estimate Adequate (ADEQUATE) Large Platelets Present Sodium Level 132 mmol/L (136-145) Potassium Level 3.8 mmol/L (3.5-5.1) Chloride Level 98 mmol/L (98-107) Carbon Dioxide Level 27 mmol/L (21-32) Anion Gap 7 (6-14) Blood Urea Nitrogen 20 mg/dL (8-26) Creatinine 0.9 mg/dL (0.7-1.3) Estimated GFR (Cockcroft-Gault) 82.3 Glucose Level 151 mg/dL (70-99) Calcium Level 8.3 mg/dL (8.5-10.1) Review of Systems Review of Systems Patient denies TAO Patient denies N/V Assessment and Plan Assessmemt and Plan Problems Medical Problems: (1) Hypokalemia Status: Acute Assessment: 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 Labs Laboratory Tests Test 09/15/18 04:30 09/16/18 03:30 White Blood Count 8.4 x10^3/uL (4.0-11.0) 9.0 x10^3/uL (4.0-11.0) Red Blood Count 4.33 x10^6/uL (4.30-5.70) 4.72 x10^6/uL (4.30-5.70) Hemoglobin 12.8 g/dL (13.0-17.5) 14.2 g/dL (13.0-17.5) Hematocrit 39.0 % (39.0-53.0) 42.2 % (39.0-53.0) Mean Corpuscular Volume 90 fL (79-100) 89 fL (79-100) Mean Corpuscular Hemoglobin 30 pg (25-35) 30 pg (25-35) Mean Corpuscular Hemoglobin Concent 33 g/dL (31-37) 34 g/dL (31-37) Red Cell Distribution Width 15.1 % (11.5-14.5) 14.7 % (11.5-14.5) Platelet Count 97 x10^3/uL (140-400) 102 x10^3/uL (140-400) Neutrophils (%) (Auto) 77 % (31-73) 86 % (31-73) Lymphocytes (%) (Auto) 13 % (24-48) 6 % (24-48) Monocytes (%) (Auto) 10 % (0-9) 8 % (0-9) Eosinophils (%) (Auto) 1 % (0-3) 0 % (0-3) Basophils (%) (Auto) 0 % (0-3) 0 % (0-3) Neutrophils # (Auto) 6.5 x10^3uL (1.8-7.7) 7.7 x10^3uL (1.8-7.7) Lymphocytes # (Auto) 1.1 x10^3/uL (1.0-4.8) 0.6 x10^3/uL (1.0-4.8) Monocytes # (Auto) 0.8 x10^3/uL (0.0-1.1) 0.7 x10^3/uL (0.0-1.1) Eosinophils # (Auto) 0.0 x10^3/uL (0.0-0.7) 0.0 x10^3/uL (0.0-0.7) Basophils # (Auto) 0.0 x10^3/uL (0.0-0.2) 0.0 x10^3/uL (0.0-0.2) Sodium Level 135 mmol/L (136-145) 132 mmol/L (136-145) Potassium Level 4.1 mmol/L (3.5-5.1) 3.8 mmol/L (3.5-5.1) Chloride Level 101 mmol/L (98-107) 98 mmol/L (98-107) Carbon Dioxide Level 27 mmol/L (21-32) 27 mmol/L (21-32) Anion Gap 7 (6-14) 7 (6-14) Blood Urea Nitrogen 21 mg/dL (8-26) 20 mg/dL (8-26) Creatinine 0.9 mg/dL (0.7-1.3) 0.9 mg/dL (0.7-1.3) Estimated GFR (Cockcroft-Gault) 82.3 82.3 Glucose Level 108 mg/dL (70-99) 151 mg/dL (70-99) Calcium Level 8.3 mg/dL (8.5-10.1) 8.3 mg/dL (8.5-10.1) Magnesium Level 2.1 mg/dL (1.8-2.4) Segmented Neutrophils % 86 % (35-66) Band Neutrophils % 3 % (0-9) Lymphocytes % 9 % (24-48) Monocytes % 2 % (0-10) Platelet Estimate Adequate (ADEQUATE) Large Platelets Present Laboratory Tests Test 09/16/18 03:30 White Blood Count 9.0 x10^3/uL (4.0-11.0) Red Blood Count 4.72 x10^6/uL (4.30-5.70) Hemoglobin 14.2 g/dL (13.0-17.5) Hematocrit 42.2 % (39.0-53.0) Mean Corpuscular Volume 89 fL (79-100) Mean Corpuscular Hemoglobin 30 pg (25-35) Mean Corpuscular Hemoglobin Concent 34 g/dL (31-37) Red Cell Distribution Width 14.7 % (11.5-14.5) Platelet Count 102 x10^3/uL (140-400) Neutrophils (%) (Auto) 86 % (31-73) Lymphocytes (%) (Auto) 6 % (24-48) Monocytes (%) (Auto) 8 % (0-9) Eosinophils (%) (Auto) 0 % (0-3) Basophils (%) (Auto) 0 % (0-3) Neutrophils # (Auto) 7.7 x10^3uL (1.8-7.7) Lymphocytes # (Auto) 0.6 x10^3/uL (1.0-4.8) Monocytes # (Auto) 0.7 x10^3/uL (0.0-1.1) Eosinophils # (Auto) 0.0 x10^3/uL (0.0-0.7) Basophils # (Auto) 0.0 x10^3/uL (0.0-0.2) Segmented Neutrophils % 86 % (35-66) Band Neutrophils % 3 % (0-9) Lymphocytes % 9 % (24-48) Monocytes % 2 % (0-10) Platelet Estimate Adequate (ADEQUATE) Large Platelets Present Sodium Level 132 mmol/L (136-145) Potassium Level 3.8 mmol/L (3.5-5.1) Chloride Level 98 mmol/L (98-107) Carbon Dioxide Level 27 mmol/L (21-32) Anion Gap 7 (6-14) Blood Urea Nitrogen 20 mg/dL (8-26) Creatinine 0.9 mg/dL (0.7-1.3) Estimated GFR (Cockcroft-Gault) 82.3 Glucose Level 151 mg/dL (70-99) Calcium Level 8.3 mg/dL (8.5-10.1) Medications Current Medications Adenosine (Adenocard) 6 mg STK-MED ONCE IV ; Start 09/11/18 at 10:13; Stop 09/11/18 at 10:14; Status DC Adenosine (Adenocard) 12 mg 1X ONCE IV ; Start 09/11/18 at 10:15; Stop 09/11/18 at 10:17; Status DC Sodium Chloride 1,000 ml @ 1,000 mls/hr Q1H IV Last administered on 09/11/18at 10:42; Start 09/11/18 at 10:13; Stop 09/11/18 at 11:12; Status DC Adenosine (Adenocard) 6 mg 1X ONCE IV ; Start 09/11/18 at 10:15; Stop 09/11/18 at 10:17; Status DC Ondansetron HCl (Zofran) 4 mg 1X ONCE IV Last administered on 09/11/18 10:46; Start 09/11/18 at 10:45; Stop 09/11/18 at 10:46; Status DC Potassium Chloride (Klor-Con) 40 meq 1X ONCE PO Last administered on 09/11/18 13:01; Start 09/11/18 at 11:15; Stop 09/11/18 at 11:16; Status DC Aspirin (Ecotrin) 81 mg DAILY PO Last administered on 09/16/18at 08:38; Start 09/11/18 at 13:00 Metoprolol Succinate (Toprol Xl) 25 mg HS PO ; Start 09/11/18 at 21:00; Stop 09/11/18 at 21:00; Status DC Ondansetron HCl (Zofran Odt) 4 mg PRN Q6HRS PRN PO NAUSEA/VOMITING Last administered on 09/12/18 16:12; Start 09/11/18 at 13:00 Pantoprazole Sodium (Protonix) 40 mg DAILYAC PO Last administered on 09/13/18 09:36; Start 09/11/18 at 13:00; Stop 09/14/18 at 11:54; Status DC Simvastatin (Zocor) 40 mg QHS PO Last administered on 09/11/18 20:46; Start 09/11/18 at 21:00; Stop 09/12/18 at 15:50; Status DC Ondansetron HCl (Zofran) 4 mg STK-MED ONCE .ROUTE ; Start 09/11/18 at 10:46; Stop 09/11/18 at 12:12; Status DC Sodium Chloride 1,000 ml @ 100 mls/hr 1X ONCE IV Last administered on 09/11/18 13:04; Start 09/11/18 at 12:45; Stop 09/11/18 at 22:44; Status DC Iohexol (Omnipaque 240 Mg/ml) 50 ml 1X ONCE PO Last administered on 09/11/18 14:40; Start 09/11/18 at 13:15; Stop 09/11/18 at 13:23; Status DC Iohexol (Omnipaque 300 Mg/ml) 75 ml 1X ONCE IV Last administered on 09/11/18at 14:40; Start 09/11/18 at 13:15; Stop 09/11/18 at 13:23; Status DC Info (CONTRAST GIVEN -- Rx MONITORING) 1 each PRN DAILY PRN MC SEE COMMENTS; Start 09/11/18 at 13:30; Stop 09/13/18 at 13:29; Status DC Ondansetron HCl (Zofran) 4 mg PRN Q6HRS PRN IV NAUSEA/VOMITING 1ST CHOICE Last administered on 09/16/18 08:38; Start 09/11/18 at 15:00 Prochlorperazine Edisylate (Compazine) 10 mg PRN Q6HRS PRN IV NAUSEA/VOMITING 2ND CHOICE Last administered on 09/15/18 20:29; Start 09/11/18 at 15:00 Metoprolol Succinate (Toprol Xl) 50 mg HS PO Last administered on 09/12/18 20:3 0; Start 09/11/18 at 21:00; Stop 09/14/18 at 14:39; Status DC Morphine Sulfate (Morphine Sulfate) 2 mg PRN Q4HRS PRN IV MODERATE-SEVERE PAIN Last administered on 09/16/18 09:27; Start 09/11/18 at 17:45 Acetaminophen/ Hydrocodone Bitart (Lortab 5/325) 1 tab PRN Q6HRS PRN PO PAIN Last administered on 09/15/18 19:54; Start 09/11/18 at 17:45 Tamsulosin HCl (Flomax) 0.4 mg DAILY PO ; Start 09/12/18 at 10:00; Stop 09/12/18 at 10:37; Status DC Polyethylene Glycol (miraLAX PACKET) 17 gm PRN DAILY PRN PO CONSTIPATION Last administered on 09/12/18 11:23; Start 09/12/18 at 09:15 Ketorolac Tromethamine (Toradol 30mg Vial) 30 mg PRN Q6HRS PRN IV MILD PAIN Last administered on 09/16/18 10:54; Start 09/12/18 at 10:15; Stop 09/17/18 at 10:14 Meclizine HCl (Antivert) 12.5 mg PRN Q6HRS PRN PO DIZZINESS Last administered on 09/12/18 11:23; Start 09/12/18 at 11:15 Sodium Monofluorophosphate (Fleet Adult) 133 ml 1X ONCE ID Last administered on 09/12/18at 16:13; Start 09/12/18 at 14:45; Stop 09/12/18 at 14:46; Status DC Magnesium Citrate (Citroma) 296 ml 1X ONCE PO Last administered on 09/12/18at 16:12; Start 09/12/18 at 16:00; Stop 09/12/18 at 16:01; Status DC Erythromycin (E-Mycin) 500 mg TID PO Last administered on 09/13/18at 09:39; Start 09/12/18 at 15:00; Stop 09/14/18 at 11:39; Status DC Neomycin Sulfate (Neomycin Sulfate) 500 mg TID PO Last administered on 09/13/18at 09:39; Start 09/12/18 at 16:00; Stop 09/14/18 at 11:39; Status DC Cefoxitin Sodium (Mefoxin) 2 gm 1X PERIOP ONCE IVP Last administered on 09/13/18at 12:40; Start 09/13/18 at 12:00; Stop 09/13/18 at 12:01; Status DC Atorvastatin Calcium (Lipitor) 20 mg QHS PO Last administered on 09/15/18at 20:3 0; Start 09/12/18 at 21:00 Ondansetron HCl (Zofran) 4 mg PRN Q6HRS PRN IV NAUSEA/VOMITING; Start 09/13/18 at 07:00; Stop 09/14/18 at 06:59; Status DC Fentanyl Citrate (Fentanyl 2ml Vial) 25 mcg PRN Q5MIN PRN IV MILD PAIN; Start 09/13/18 at 07:00; Stop 09/14/18 at 06:59; Status DC Fentanyl Citrate (Fentanyl 2ml Vial) 50 mcg PRN Q5MIN PRN IV MODERATE TO SEVERE PAIN; Start 09/13/18 at 07:00; Stop 09/14/18 at 06:59; Status DC Morphine Sulfate (Morphine Sulfate) 1 mg PRN Q10MIN PRN IV SEVERE PAIN; Start 09/13/18 at 07:00; Stop 09/14/18 at 06:59; Status DC Ringer's Solution 1,000 ml @ 30 mls/hr Q24H IV Last administered on 09/13/18at 06:32; Start 09/13/18 at 07:00; Stop 09/13/18 at 16:44; Status DC Lidocaine HCl (Xylocaine-Mpf 1% 2ml Vial) 2 ml PRN 1X PRN ID PRIOR TO IV START; Start 09/13/18 at 07:00; Stop 09/14/18 at 06:59; Status DC Hydromorphone HCl (Dilaudid) 0.5 mg PRN Q10MIN PRN IV SEV PAIN, Second choice; Start 09/13/18 at 07:00; Stop 09/14/18 at 06:59; Status DC Prochlorperazine Edisylate (Compazine) 5 mg PACU PRN PRN IV NAUSEA, MRX1; Start 09/13/18 at 07:00; Stop 09/14/18 at 06:59; Status DC Lorazepam (Ativan) 0.5 mg PRN Q6HRS PRN IV ANXIETY / AGITATION Last administered on 09/15/18at 20:29; Start 09/12/18 at 19:45 Bupivacaine HCl/ Epinephrine Bitart (Sensorcain-Mpf Epi 0.5%-[id number]) 30 ml STK-MED ONCE .ROUTE Last administered on 09/13/18at 13:10; Start 09/13/18 at 10:55; Stop 09/13/18 at 11:55; Status DC Rocuronium Starke (Zemuron) 50 mg STK-MED ONCE .ROUTE ; Start 09/13/18 at 12:09; Stop 09/13/18 at 12:10; Status DC Midazolam HCl (Versed) 2 mg STK-MED ONCE .ROUTE ; Start 09/13/18 at 12:09; Stop 09/13/18 at 12:10; Status DC Fentanyl Citrate (Fentanyl 5ml Vial) 250 mcg STK-MED ONCE .ROUTE ; Start 09/13/18 at 12:09; Stop 09/13/18 at 12:10; Status DC Propofol 20 ml @ As Directed STK-MED ONCE IV ; Start 09/13/18 at 12:11; Stop 09/13/18 at 12:12; Status DC Lidocaine HCl (Lidocaine Pf 2% Vial) 5 ml STK-MED ONCE .ROUTE ; Start 09/13/18 at 12:11; Stop 09/13/18 at 12:12; Status DC Ondansetron HCl (Zofran) 4 mg STK-MED ONCE .ROUTE ; Start 09/13/18 at 12:11; Stop 09/13/18 at 12:12; Status DC Dexamethasone Sodium Phosphate (Decadron) 4 mg STK-MED ONCE .ROUTE ; Start 09/13/18 at 12:11; Stop 09/13/18 at 12:12; Status DC Cefoxitin Sodium (Mefoxin) 2 gm 1X ONCE IVP Last administered on 09/13/18at 14:40; Start 09/13/18 at 12:15; Stop 09/13/18 at 12:16; Status DC Ephedrine Sulfate (ePHEDrine PF IN SALINE SYRINGE) 50 mg STK-MED ONCE IV ; Start 09/13/18 at 12:51; Stop 09/13/18 at 12:52; Status DC Phenylephrine HCl (PHENYLEPHRINE in 0.9% NACL PF) 1 mg STK-MED ONCE IV ; Start 09/13/18 at 12:51; Stop 09/13/18 at 12:52; Status DC Rocuronium Starke (Zemuron) 50 mg STK-MED ONCE .ROUTE ; Start 09/13/18 at 13:36; Stop 09/13/18 at 13:37; Status DC Fentanyl Citrate (Fentanyl 5ml Vial) 250 mcg STK-MED ONCE .ROUTE ; Start 09/13/18 at 13:51; Stop 09/13/18 at 13:52; Status DC Neostigmine Methylsulfate (Neostigmine Methylsulfate) 5 mg STK-MED ONCE .ROUTE ; Start 09/13/18 at 13:57; Stop 09/13/18 at 13:58; Status DC Glycopyrrolate (Robinul) 1 mg STK-MED ONCE .ROUTE ; Start 09/13/18 at 13:57; Stop 09/13/18 at 13:58; Status DC Esmolol HCl (Brevibloc) 100 mg STK-MED ONCE IVP ; Start 09/13/18 at 14:00; Stop 09/13/18 at 14:01; Status DC Sevoflurane (Ultane) 90 ml STK-MED ONCE IH ; Start 09/13/18 at 14:19; Stop 09/13/18 at 14:20; Status DC Enoxaparin Sodium (Lovenox 40mg Syringe) 40 mg Q24H SQ ; Start 09/13/18 at 16:00; Status Cancel Sodium Chloride (Normal Saline Flush) 3 ml QSHIFT PRN IV AFTER MEDS AND BLOOD DRAWS; Start 09/13/18 at 15:15 Ringer's Solution 1,000 ml @ 100 mls/hr Q10H IV Last administered on 09/14/18at 01:04; Start 09/13/18 at 15:04; Stop 09/14/18 at 11:39; Status DC Naloxone HCl (Narcan) 0.4 mg PRN Q2MIN PRN IV SEE INSTRUCTIONS; Start 09/13/18 at 15:15 Sodium Chloride 1,000 ml @ 25 mls/hr Q24H IV ; Start 09/13/18 at 15:04; Stop 09/16/18 at 10:36; Status DC Morphine Sulfate 30 ml @ 0 mls/hr CONT PRN PRN IV PER PROTOCOL; Start 09/13/18 at 15:15 Lidocaine HCl (Lidocaine HCl 2% Abboject) 100 mg STK-MED ONCE .ROUTE ; Start 09/13/18 at 15:35; Stop 09/13/18 at 15:36; Status DC Lidocaine HCl (Lidocaine HCl 2% Abboject) 100 mg 1X ONCE IV Last administered on 09/13/18at 15:45; Start 09/13/18 at 15:45; Stop 09/13/18 at 15:46; Status DC Enoxaparin Sodium (Lovenox 40mg Syringe) 40 mg Q24H SQ Last administered on 09/16/18at 08:39; Start 09/14/18 at 09:00 Metoprolol Tartrate (Lopressor Vial) 5 mg Q8HRS IVP Last administered on 09/15/18at 05:48; Start 09/14/18 at 06:00; Stop 09/15/18 at 10:30; Status DC Metoprolol Tartrate (Lopressor Vial) 5 mg 1X ONCE IVP Last administered on 09/13/18at 18:42; Start 09/13/18 at 18:45; Stop 09/13/18 at 18:46; Status DC Amino Acids/ Glycerin/ Electrolytes 1,000 ml @ 75 mls/hr [id number] IV Last administered on 09/16/18at 08:35; Start 09/14/18 at 11:45 Pantoprazole Sodium (PROTONIX VIAL for IV PUSH) 40 mg DAILYAC IVP Last administered on 09/16/18at 08:38; Start 09/15/18 at 07:30; Stop 09/16/18 at 10:36; Status DC Pantoprazole Sodium (PROTONIX VIAL for IV PUSH) 40 mg 1X ONCE IVP Last administered on 09/14/18at 12:04; Start 09/14/18 at 12:00; Stop 09/14/18 at 12:01; Status DC Metoprolol Tartrate (Lopressor Vial) 5 mg PRN Q4HRS PRN IVP TACHYCARDIA Last administered on 09/16/18at 06:34; Start 09/15/18 at 10:30 Metoprolol Succinate (Toprol Xl) 25 mg BID PO Last administered on 09/15/18at 20:30; Start 09/15/18 at 12:00; Stop 09/16/18 at 10:48; Status DC Pantoprazole Sodium (Protonix) 40 mg DAILYAC PO ; Start 09/17/18 at 07:30 Metoprolol Succinate (Toprol Xl) 25 mg Q6HRS PO ; Start 09/16/18 at 12:00 Active Scripts Active Ondansetron Odt (Ondansetron) 4 Mg Tab.rapdis 1 Tab PO PRN Q6-8HRS Protonix (Pantoprazole Sodium) 40 Mg Tablet. 1 Tab PO DAILY Reported Zocor (Simvastatin) 40 Mg Tablet 40 Mg PO HS Toprol Xl (Metoprolol Succinate) 25 Mg Tab.er.24h 25 Mg PO HS Aspir 81 (Aspirin) 81 Mg Tablet.dr 81 Mg PO DAILY Vitals/I & O Vital Sign - Last 24 Hours 09/15/18 09/15/18 09/15/18 09/15/18 11:45 11:45 12:45 15:18 Temp 98.7 98.7 Pulse 102 91 Resp 18 B/P (MAP) 112/64 112/73 (86) Pulse Ox 93 93 92 O2 Delivery Room Air Room Air 09/15/18 09/15/18 09/15/18 09/15/18 15:21 16:00 19:25 19:54 Temp 98.1 98.1 Pulse 102 Resp 19 20 B/P (MAP) 135/85 (102) Pulse Ox 92 92 94 O2 Delivery Room Air Room Air Room Air 09/15/18 09/15/18 09/15/18 09/15/18 19:57 20:30 20:54 22:59 Temp 98.2 98.2 Pulse 102 99 Resp 20 16 B/P (MAP) 135/85 111/68 (82) Pulse Ox 91 O2 Delivery Room Air Room Air Room Air 09/16/18 09/16/18 09/16/18 09/16/18 00:01 03:43 04:10 04:40 Temp 98.5 98.5 Pulse 112 Resp 20 19 20 20 B/P (MAP) 119/59 (79) Pulse Ox 96 O2 Delivery Room Air Room Air Room Air 09/16/18 09/16/18 09/16/18 09/16/18 06:34 07:00 09:27 10:00 Temp 97.8 97.8 Pulse 181 69 Resp 18 B/P (MAP) 140/84 111/79 (90) Pulse Ox 95 O2 Delivery Room Air Room Air Room Air Intake and Output 09/15/18 09/15/18 09/16/18 15:00 23:00 07:00 Intake Total 0 ml 240 ml 736 ml Output Total 350 ml 50 ml Balance -350 ml 190 ml 736 ml TITO DESAI III DO September 16, 2018 11:44
[2018-09-16] MEDS: METOPROLOL SUCC 24HR ER 25 MG TAB.ER.24H. PO SCH ×2 (13:30→18:00)
[2018-09-16 15:00] VITALS: BP 116/75
[2018-09-16] MEDS: PROCHLORPERAZINE 10 MG/2 ML VIAL. IV PRN (15:12)
[2018-09-16] MEDS ORDERED: PROCHLORPERAZINE 10 MG/2 ML VIAL. IV PRN (15:15)
[2018-09-16] MEDS: ONDANSETRON ODT 4 MG TAB.RAPDIS. PO PRN (18:09)
[2018-09-16] MEDS: MECLIZINE HCL 12.5 MG TABLET. PO PRN (18:55)
[2018-09-16 19:05] VITALS: BP 152/69
[2018-09-16] MEDS: ATORVASTATIN CALCIUM 20 MG TABLET PO SCH (21:00)
[2018-09-16 22:35] VITALS: BP 154/76
--- NOTE | 2018-09-17 01:14 | NUR ---
Patient confused and restless. Patient helped out of bed and refused walker and cussing at the account underwriter. Patient redirected to bathroom and locked the door stating he can do it on his own. Patient assisted back to bed and attempted to administer scheduled metoprolol and atrovastatin and patient refused and went back to bed. Call light within reach and bed alarm set.
[2018-09-17 03:29] VITALS: BP 160/80
[2018-09-17 05:32] LABS: BASO % 0 % (0-3); EOS % 0 % (0-3); HEMATOCRIT 40.9 % (39.0-53.0); HEMOGLOBIN 13.9 g/dL (13.0-17.5); LYMPH # 0.4 x10^3/uL (1.0-4.8); LYMPH % 6 % (24-48); MEAN CORPUSCULAR HEMOGLOBIN 31 pg (25-35); MEAN CORPUSCULAR HGB CONC 34 g/dL (31-37); MEAN CORPUSCULAR VOLUME 90 fL (79-100); MONO # 0.7 x10^3/uL (0.0-1.1); MONO % 9 % (0-9); NEUT # 6.3 x10^3uL (1.8-7.7); NEUT % 84 % (31-73); PLATELET COUNT 114 x10^3/uL (140-400); RED BLOOD COUNT 4.55 x10^6/uL (4.30-5.70); RED CELL DISTRIBUTION WIDTH 14.6 % (11.5-14.5); WHITE BLOOD COUNT 7.4 x10^3/uL (4.0-11.0)
[2018-09-17 05:37] LABS: CALCIUM 8.6 mg/dL (8.5-10.1); GFR 72.8; POTASSIUM 4.6 mmol/L (3.5-5.1)
[2018-09-17] MEDS: ONDANSETRON ODT 4 MG TAB.RAPDIS. PO PRN ×2 (05:54→20:50)
[2018-09-17] MEDS: METOPROLOL SUCC 24HR ER 25 MG TAB.ER.24H. PO SCH ×4 (05:54→18:04)
[2018-09-17 07:00] VITALS: BP 101/58
[2018-09-17] MEDS: ONDANSETRON PF 4 MG/2 ML VIAL. IV PRN (08:30)
[2018-09-17] MEDS: AMINO AC 3%/ELECTROLYTE/GLYCER 1,000 ML IV SCH ×2 (08:30→14:54)
[2018-09-17] MEDS: MECLIZINE HCL 12.5 MG TABLET. PO PRN (08:30)
[2018-09-17] MEDS: ENOXAPARIN 40 MG/0.4 ML SYRINGE. SQ SCH (08:31)
[2018-09-17] MEDS: ASPIRIN ENTERIC COATED 81 MG TABLET.DR. PO SCH (08:31)
[2018-09-17] MEDS: PANTOPRAZOLE 40 MG TABLET.DR. PO SCH (08:31)
[2018-09-17] MEDS: POLYETHYLENE GLYCOL 3350 17 GM PACKET. PO PRN (08:33)
[2018-09-17] MEDS: METOPROLOL TARTRATE 5 MG/5 ML VIAL. IVP PRN (08:34)
--- NOTE | 2018-09-17 09:02 | PDOC ---
SURGICAL PROGRESS NOTE Subjective Patient doing well resting comfortably tolerating full liquid diet still denies passing any stool Vital Signs Vital Signs Date Time Temp Pulse Resp B/P (MAP) Pulse Ox O2 Delivery O2 Flow Rate FiO2 09/17/18 08:34 102 109/58 09/17/18 07:00 98.3 18 99 Room Air 98.3 I&O Intake and Output 09/17/18 07:00 Intake Total 2004 ml Balance 2004 ml Intake Oral 220 ml IV Total 1784 ml # Voids 2 PATIENT HAS A EWING: No General: Alert, Oriented X3, Cooperative, mild distress Abdomen: Normal bowel sounds, Soft, No tenderness, Other (wounds clean dry and intact) Labs Laboratory Tests Test 09/16/18 03:30 09/17/18 04:45 White Blood Count 9.0 x10^3/uL (4.0-11.0) 7.4 x10^3/uL (4.0-11.0) Red Blood Count 4.72 x10^6/uL (4.30-5.70) 4.55 x10^6/uL (4.30-5.70) Hemoglobin 14.2 g/dL (13.0-17.5) 13.9 g/dL (13.0-17.5) Hematocrit 42.2 % (39.0-53.0) 40.9 % (39.0-53.0) Mean Corpuscular Volume 89 fL (79-100) 90 fL (79-100) Mean Corpuscular Hemoglobin 30 pg (25-35) 31 pg (25-35) Mean Corpuscular Hemoglobin Concent 34 g/dL (31-37) 34 g/dL (31-37) Red Cell Distribution Width 14.7 % (11.5-14.5) 14.6 % (11.5-14.5) Platelet Count 102 x10^3/uL (140-400) 114 x10^3/uL (140-400) Neutrophils (%) (Auto) 86 % (31-73) 84 % (31-73) Lymphocytes (%) (Auto) 6 % (24-48) 6 % (24-48) Monocytes (%) (Auto) 8 % (0-9) 9 % (0-9) Eosinophils (%) (Auto) 0 % (0-3) 0 % (0-3) Basophils (%) (Auto) 0 % (0-3) 0 % (0-3) Neutrophils # (Auto) 7.7 x10^3uL (1.8-7.7) 6.3 x10^3uL (1.8-7.7) Lymphocytes # (Auto) 0.6 x10^3/uL (1.0-4.8) 0.4 x10^3/uL (1.0-4.8) Monocytes # (Auto) 0.7 x10^3/uL (0.0-1.1) 0.7 x10^3/uL (0.0-1.1) Eosinophils # (Auto) 0.0 x10^3/uL (0.0-0.7) 0.0 x10^3/uL (0.0-0.7) Basophils # (Auto) 0.0 x10^3/uL (0.0-0.2) 0.0 x10^3/uL (0.0-0.2) Segmented Neutrophils % 86 % (35-66) Band Neutrophils % 3 % (0-9) Lymphocytes % 9 % (24-48) Monocytes % 2 % (0-10) Platelet Estimate Adequate (ADEQUATE) Large Platelets Present Sodium Level 132 mmol/L (136-145) 131 mmol/L (136-145) Potassium Level 3.8 mmol/L (3.5-5.1) 4.6 mmol/L (3.5-5.1) Chloride Level 98 mmol/L (98-107) 96 mmol/L (98-107) Carbon Dioxide Level 27 mmol/L (21-32) 26 mmol/L (21-32) Anion Gap 7 (6-14) 9 (6-14) Blood Urea Nitrogen 20 mg/dL (8-26) 26 mg/dL (8-26) Creatinine 0.9 mg/dL (0.7-1.3) 1.0 mg/dL (0.7-1.3) Estimated GFR (Cockcroft-Gault) 82.3 72.8 Glucose Level 151 mg/dL (70-99) 153 mg/dL (70-99) Calcium Level 8.3 mg/dL (8.5-10.1) 8.6 mg/dL (8.5-10.1) Laboratory Tests Test 09/17/18 04:45 White Blood Count 7.4 x10^3/uL (4.0-11.0) Red Blood Count 4.55 x10^6/uL (4.30-5.70) Hemoglobin 13.9 g/dL (13.0-17.5) Hematocrit 40.9 % (39.0-53.0) Mean Corpuscular Volume 90 fL (79-100) Mean Corpuscular Hemoglobin 31 pg (25-35) Mean Corpuscular Hemoglobin Concent 34 g/dL (31-37) Red Cell Distribution Width 14.6 % (11.5-14.5) Platelet Count 114 x10^3/uL (140-400) Neutrophils (%) (Auto) 84 % (31-73) Lymphocytes (%) (Auto) 6 % (24-48) Monocytes (%) (Auto) 9 % (0-9) Eosinophils (%) (Auto) 0 % (0-3) Basophils (%) (Auto) 0 % (0-3) Neutrophils # (Auto) 6.3 x10^3uL (1.8-7.7) Lymphocytes # (Auto) 0.4 x10^3/uL (1.0-4.8) Monocytes # (Auto) 0.7 x10^3/uL (0.0-1.1) Eosinophils # (Auto) 0.0 x10^3/uL (0.0-0.7) Basophils # (Auto) 0.0 x10^3/uL (0.0-0.2) Sodium Level 131 mmol/L (136-145) Potassium Level 4.6 mmol/L (3.5-5.1) Chloride Level 96 mmol/L (98-107) Carbon Dioxide Level 26 mmol/L (21-32) Anion Gap 9 (6-14) Blood Urea Nitrogen 26 mg/dL (8-26) Creatinine 1.0 mg/dL (0.7-1.3) Estimated GFR (Cockcroft-Gault) 72.8 Glucose Level 153 mg/dL (70-99) Calcium Level 8.6 mg/dL (8.5-10.1) Problem List Problems Medical Problems: (1) Hypokalemia Status: Acute Assessment/Plan Status post colectomy continue supportive care maintain full liquids at this point is tolerating still not pass stool DAQUAN HECK MD September 17, 2018 09:02
[2018-09-17] MEDS: PROCHLORPERAZINE 10 MG/2 ML VIAL. IV PRN (09:48)
[2018-09-17] MEDS: KETOROLAC 30 MG/ML VIAL. IV PRN (09:49)
[2018-09-17 11:00] VITALS: BP 160/96
[2018-09-17] MEDS: MORPHINE SULFATE 2 MG/ML VIAL. IV PRN (12:11)
--- NOTE | 2018-09-17 12:50 | PDOC ---
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 day 4 Discuessed with nurse Per nursing he had another episode of confusion overnight Metoprolol has been increased for recurrent runs of SVT Progressing diet per specialists Vitals Vitals Vital Signs Date Time Temp Pulse Resp B/P (MAP) Pulse Ox O2 Delivery O2 Flow Rate FiO2 09/17/18 12:11 Room Air 09/17/18 12:00 79 160/96 09/17/18 11:00 98.1 18 93 98.1 Physical Exam General: Alert, Oriented X3, Cooperative, mild distress Heart: Regular rate, Normal S1, Normal S2, Other (2/6 systolic murmur, intermittant SVT) Lungs: Clear Abdomen: Normal bowel sounds, Soft, No tenderness, Other (wounds clean dry and intact) Extremities: No clubbing, No cyanosis Skin: No rashes, No breakdown Labs LABS Laboratory Tests Test 09/17/18 04:45 White Blood Count 7.4 x10^3/uL (4.0-11.0) Red Blood Count 4.55 x10^6/uL (4.30-5.70) Hemoglobin 13.9 g/dL (13.0-17.5) Hematocrit 40.9 % (39.0-53.0) Mean Corpuscular Volume 90 fL (79-100) Mean Corpuscular Hemoglobin 31 pg (25-35) Mean Corpuscular Hemoglobin Concent 34 g/dL (31-37) Red Cell Distribution Width 14.6 % (11.5-14.5) Platelet Count 114 x10^3/uL (140-400) Neutrophils (%) (Auto) 84 % (31-73) Lymphocytes (%) (Auto) 6 % (24-48) Monocytes (%) (Auto) 9 % (0-9) Eosinophils (%) (Auto) 0 % (0-3) Basophils (%) (Auto) 0 % (0-3) Neutrophils # (Auto) 6.3 x10^3uL (1.8-7.7) Lymphocytes # (Auto) 0.4 x10^3/uL (1.0-4.8) Monocytes # (Auto) 0.7 x10^3/uL (0.0-1.1) Eosinophils # (Auto) 0.0 x10^3/uL (0.0-0.7) Basophils # (Auto) 0.0 x10^3/uL (0.0-0.2) Sodium Level 131 mmol/L (136-145) Potassium Level 4.6 mmol/L (3.5-5.1) Chloride Level 96 mmol/L (98-107) Carbon Dioxide Level 26 mmol/L (21-32) Anion Gap 9 (6-14) Blood Urea Nitrogen 26 mg/dL (8-26) Creatinine 1.0 mg/dL (0.7-1.3) Estimated GFR (Cockcroft-Gault) 72.8 Glucose Level 153 mg/dL (70-99) Calcium Level 8.6 mg/dL (8.5-10.1) Review of Systems Review of Systems Patient denies TAO Patient denies diarrhea Assessment and Plan Assessmemt and Plan Problems Medical Problems: (1) Hypokalemia Status: Acute Assessment: 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 Labs Laboratory Tests Test 09/16/18 03:30 09/17/18 04:45 White Blood Count 9.0 x10^3/uL (4.0-11.0) 7.4 x10^3/uL (4.0-11.0) Red Blood Count 4.72 x10^6/uL (4.30-5.70) 4.55 x10^6/uL (4.30-5.70) Hemoglobin 14.2 g/dL (13.0-17.5) 13.9 g/dL (13.0-17.5) Hematocrit 42.2 % (39.0-53.0) 40.9 % (39.0-53.0) Mean Corpuscular Volume 89 fL (79-100) 90 fL (79-100) Mean Corpuscular Hemoglobin 30 pg (25-35) 31 pg (25-35) Mean Corpuscular Hemoglobin Concent 34 g/dL (31-37) 34 g/dL (31-37) Red Cell Distribution Width 14.7 % (11.5-14.5) 14.6 % (11.5-14.5) Platelet Count 102 x10^3/uL (140-400) 114 x10^3/uL (140-400) Neutrophils (%) (Auto) 86 % (31-73) 84 % (31-73) Lymphocytes (%) (Auto) 6 % (24-48) 6 % (24-48) Monocytes (%) (Auto) 8 % (0-9) 9 % (0-9) Eosinophils (%) (Auto) 0 % (0-3) 0 % (0-3) Basophils (%) (Auto) 0 % (0-3) 0 % (0-3) Neutrophils # (Auto) 7.7 x10^3uL (1.8-7.7) 6.3 x10^3uL (1.8-7.7) Lymphocytes # (Auto) 0.6 x10^3/uL (1.0-4.8) 0.4 x10^3/uL (1.0-4.8) Monocytes # (Auto) 0.7 x10^3/uL (0.0-1.1) 0.7 x10^3/uL (0.0-1.1) Eosinophils # (Auto) 0.0 x10^3/uL (0.0-0.7) 0.0 x10^3/uL (0.0-0.7) Basophils # (Auto) 0.0 x10^3/uL (0.0-0.2) 0.0 x10^3/uL (0.0-0.2) Segmented Neutrophils % 86 % (35-66) Band Neutrophils % 3 % (0-9) Lymphocytes % 9 % (24-48) Monocytes % 2 % (0-10) Platelet Estimate Adequate (ADEQUATE) Large Platelets Present Sodium Level 132 mmol/L (136-145) 131 mmol/L (136-145) Potassium Level 3.8 mmol/L (3.5-5.1) 4.6 mmol/L (3.5-5.1) Chloride Level 98 mmol/L (98-107) 96 mmol/L (98-107) Carbon Dioxide Level 27 mmol/L (21-32) 26 mmol/L (21-32) Anion Gap 7 (6-14) 9 (6-14) Blood Urea Nitrogen 20 mg/dL (8-26) 26 mg/dL (8-26) Creatinine 0.9 mg/dL (0.7-1.3) 1.0 mg/dL (0.7-1.3) Estimated GFR (Cockcroft-Gault) 82.3 72.8 Glucose Level 151 mg/dL (70-99) 153 mg/dL (70-99) Calcium Level 8.3 mg/dL (8.5-10.1) 8.6 mg/dL (8.5-10.1) Laboratory Tests Test 09/17/18 04:45 White Blood Count 7.4 x10^3/uL (4.0-11.0) Red Blood Count 4.55 x10^6/uL (4.30-5.70) Hemoglobin 13.9 g/dL (13.0-17.5) Hematocrit 40.9 % (39.0-53.0) Mean Corpuscular Volume 90 fL (79-100) Mean Corpuscular Hemoglobin 31 pg (25-35) Mean Corpuscular Hemoglobin Concent 34 g/dL (31-37) Red Cell Distribution Width 14.6 % (11.5-14.5) Platelet Count 114 x10^3/uL (140-400) Neutrophils (%) (Auto) 84 % (31-73) Lymphocytes (%) (Auto) 6 % (24-48) Monocytes (%) (Auto) 9 % (0-9) Eosinophils (%) (Auto) 0 % (0-3) Basophils (%) (Auto) 0 % (0-3) Neutrophils # (Auto) 6.3 x10^3uL (1.8-7.7) Lymphocytes # (Auto) 0.4 x10^3/uL (1.0-4.8) Monocytes # (Auto) 0.7 x10^3/uL (0.0-1.1) Eosinophils # (Auto) 0.0 x10^3/uL (0.0-0.7) Basophils # (Auto) 0.0 x10^3/uL (0.0-0.2) Sodium Level 131 mmol/L (136-145) Potassium Level 4.6 mmol/L (3.5-5.1) Chloride Level 96 mmol/L (98-107) Carbon Dioxide Level 26 mmol/L (21-32) Anion Gap 9 (6-14) Blood Urea Nitrogen 26 mg/dL (8-26) Creatinine 1.0 mg/dL (0.7-1.3) Estimated GFR (Cockcroft-Gault) 72.8 Glucose Level 153 mg/dL (70-99) Calcium Level 8.6 mg/dL (8.5-10.1) Medications Current Medications Adenosine (Adenocard) 6 mg STK-MED ONCE IV ; Start 09/11/18 at 10:13; Stop 09/11/18 at 10:14; Status DC Adenosine (Adenocard) 12 mg 1X ONCE IV ; Start 09/11/18 at 10:15; Stop 09/11/18 at 10:17; Status DC Sodium Chloride 1,000 ml @ 1,000 mls/hr Q1H IV Last administered on 09/11/18at 10:42; Start 09/11/18 at 10:13; Stop 09/11/18 at 11:12; Status DC Adenosine (Adenocard) 6 mg 1X ONCE IV ; Start 09/11/18 at 10:15; Stop 09/11/18 at 10:17; Status DC Ondansetron HCl (Zofran) 4 mg 1X ONCE IV Last administered on 09/11/18at 10:46; Start 09/11/18 at 10:45; Stop 09/11/18 at 10:46; Status DC Potassium Chloride (Klor-Con) 40 meq 1X ONCE PO Last administered on 09/11/18at 13:01; Start 09/11/18 at 11:15; Stop 09/11/18 at 11:16; Status DC Aspirin (Ecotrin) 81 mg DAILY PO Last administered on 09/17/18at 08:31; Start 09/11/18 at 13:00 Metoprolol Succinate (Toprol Xl) 25 mg HS PO ; Start 09/11/18 at 21:00; Stop 09/11/18 at 21:00; Status DC Ondansetron HCl (Zofran Odt) 4 mg PRN Q6HRS PRN PO NAUSEA/VOMITING Last administered on 09/17/18at 05:54; Start 09/11/18 at 13:00 Pantoprazole Sodium (Protonix) 40 mg DAILYAC PO Last administered on 09/13/18at 09:36; Start 09/11/18 at 13:00; Stop 09/14/18 at 11:54; Status DC Simvastatin (Zocor) 40 mg QHS PO Last administered on 09/11/18at 20:46; Start 09/11/18 at 21:00; Stop 09/12/18 at 15:50; Status DC Ondansetron HCl (Zofran) 4 mg STK-MED ONCE .ROUTE ; Start 09/11/18 at 10:46; Stop 09/11/18 at 12:12; Status DC Sodium Chloride 1,000 ml @ 100 mls/hr 1X ONCE IV Last administered on 09/11/18at 13:04; Start 09/11/18 at 12:45; Stop 09/11/18 at 22:44; Status DC Iohexol (Omnipaque 240 Mg/ml) 50 ml 1X ONCE PO Last administered on 09/11/18at 14:40; Start 09/11/18 at 13:15; Stop 09/11/18 at 13:23; Status DC Iohexol (Omnipaque 300 Mg/ml) 75 ml 1X ONCE IV Last administered on 09/11/18at 14:40; Start 09/11/18 at 13:15; Stop 09/11/18 at 13:23; Status DC Info (CONTRAST GIVEN -- Rx MONITORING) 1 each PRN DAILY PRN MC SEE COMMENTS; Start 09/11/18 at 13:30; Stop 09/13/18 at 13:29; Status DC Ondansetron HCl (Zofran) 4 mg PRN Q6HRS PRN IV NAUSEA/VOMITING 1ST CHOICE Last administered on 09/17/18at 08:30; Start 09/11/18 at 15:00 Prochlorperazine Edisylate (Compazine) 10 mg PRN Q6HRS PRN IV NAUSEA/VOMITING 2ND CHOICE Last administered on 09/17/18 09:48; Start 09/11/18 at 15:00 Metoprolol Succinate (Toprol Xl) 50 mg HS PO Last administered on 09/12/18 20:30; Start 09/11/18 at 21:00; Stop 09/14/18 at 14:39; Status DC Morphine Sulfate (Morphine Sulfate) 2 mg PRN Q4HRS PRN IV MODERATE-SEVERE PAIN Last administered on 09/17/18 12:11; Start 09/11/18 at 17:45 Acetaminophen/ Hydrocodone Bitart (Lortab 5/325) 1 tab PRN Q6HRS PRN PO PAIN Last administered on 09/15/18 19:54; Start 09/11/18 at 17:45 Tamsulosin HCl (Flomax) 0.4 mg DAILY PO ; Start 09/12/18 at 10:00; Stop 09/12/18 at 10:37; Status DC Polyethylene Glycol (miraLAX PACKET) 17 gm PRN DAILY PRN PO CONSTIPATION Last administered on 09/17/18 08:33; Start 09/12/18 at 09:15 Ketorolac Tromethamine (Toradol 30mg Vial) 30 mg PRN Q6HRS PRN IV MILD PAIN [facility] administered on 09/17/18 09:49; Start 09/12/18 at 10:15; Stop 09/17/18 at 10:14; Status DC Meclizine HCl (Antivert) 12.5 mg PRN Q6HRS PRN PO DIZZINESS Last administered on 09/17/18 08:30; Start 09/12/18 at 11:15 Sodium Monofluorophosphate (Fleet Adult) 133 ml 1X ONCE RI Last administered on 09/12/18 16:13; Start 09/12/18 at 14:45; Stop 09/12/18 at 14:46; Status DC Magnesium Citrate (Citroma) 296 ml 1X ONCE PO Last administered on 09/12/18 16:12; Start 09/12/18 at 16:00; Stop 09/12/18 at 16:01; Status DC Erythromycin (E-Mycin) 500 mg TID PO Last administered on 09/13/18 09:39; Start 09/12/18 at 15:00; Stop 09/14/18 at 11:39; Status DC Neomycin Sulfate (Neomycin Sulfate) 500 mg TID PO Last administered on 09/13/18at 09:39; Start 09/12/18 at 16:00; Stop 09/14/18 at 11:39; Status DC Cefoxitin Sodium (Mefoxin) 2 gm 1X PERIOP ONCE IVP Last administered on 09/13/18at 12:40; Start 09/13/18 at 12:00; Stop 09/13/18 at 12:01; Status DC Atorvastatin Calcium (Lipitor) 20 mg QHS PO Last administered on 09/15/18at 20:30; Start 09/12/18 at 21:00 Ondansetron HCl (Zofran) 4 mg PRN Q6HRS PRN IV NAUSEA/VOMITING; Start 09/13/18 at 07:00; Stop 09/14/18 at 06:59; Status DC Fentanyl Citrate (Fentanyl 2ml Vial) 25 mcg PRN Q5MIN PRN IV MILD PAIN; Start 09/13/18 at 07:00; Stop 09/14/18 at 06:59; Status DC Fentanyl Citrate (Fentanyl 2ml Vial) 50 mcg PRN Q5MIN PRN IV MODERATE TO SEVERE PAIN; Start 09/13/18 at 07:00; Stop 09/14/18 at 06:59; Status DC Morphine Sulfate (Morphine Sulfate) 1 mg PRN Q10MIN PRN IV SEVERE PAIN; Start 09/13/18 at 07:00; Stop 09/14/18 at 06:59; Status DC Ringer's Solution 1,000 ml @ 30 mls/hr Q24H IV Last administered on 09/13/18at 06:32; Start 09/13/18 at 07:00; Stop 09/13/18 at 16:44; Status DC Lidocaine HCl (Xylocaine-Mpf 1% 2ml Vial) 2 ml PRN 1X PRN ID PRIOR TO IV START; Start 09/13/18 at 07:00; Stop 09/14/18 at 06:59; Status DC Hydromorphone HCl (Dilaudid) 0.5 mg PRN Q10MIN PRN IV SEV PAIN, Second choice; Start 09/13/18 at 07:00; Stop 09/14/18 at 06:59; Status DC Prochlorperazine Edisylate (Compazine) 5 mg PACU PRN PRN IV NAUSEA, MRX1; Start 09/13/18 at 07:00; Stop 09/14/18 at 06:59; Status DC Lorazepam (Ativan) 0.5 mg PRN Q6HRS PRN IV ANXIETY / AGITATION Last administered on 09/16/18at 19:33; Start 09/12/18 at 19:45 Bupivacaine HCl/ Epinephrine Bitart (Sensorcain-Mpf Epi 0.5%-[id number]) 30 ml STK-MED ONCE .ROUTE Last administered on 09/13/18at 13:10; Start 09/13/18 at 10:55; Stop 09/13/18 at 11:55; Status DC Rocuronium [place] (Zemuron) 50 mg STK-MED ONCE .ROUTE ; Start 09/13/18 at 12:09; Stop 09/13/18 at 12:10; Status DC Midazolam HCl (Versed) 2 mg STK-MED ONCE .ROUTE ; Start 09/13/18 at 12:09; Stop 09/13/18 at 12:10; Status DC Fentanyl Citrate (Fentanyl 5ml Vial) 250 mcg STK-MED ONCE .ROUTE ; Start 09/13/18 at 12:09; Stop 09/13/18 at 12:10; Status DC Propofol 20 ml @ As Directed STK-MED ONCE IV ; Start 09/13/18 at 12:11; Stop 09/13/18 at 12:12; Status DC Lidocaine HCl (Lidocaine Pf 2% Vial) 5 ml STK-MED ONCE .ROUTE ; Start 09/13/18 at 12:11; Stop 09/13/18 at 12:12; Status DC Ondansetron HCl (Zofran) 4 mg STK-MED ONCE .ROUTE ; Start 09/13/18 at 12:11; Stop 09/13/18 at 12:12; Status DC Dexamethasone Sodium Phosphate (Decadron) 4 mg STK-MED ONCE .ROUTE ; Start 09/13/18 at 12:11; Stop 09/13/18 at 12:12; Status DC Cefoxitin Sodium (Mefoxin) 2 gm 1X ONCE IVP Last administered on 09/13/18at 14:40; Start 09/13/18 at 12:15; Stop 09/13/18 at 12:16; Status DC Ephedrine Sulfate (ePHEDrine PF IN SALINE SYRINGE) 50 mg STK-MED ONCE IV ; Start 09/13/18 at 12:51; Stop 09/13/18 at 12:52; Status DC Phenylephrine HCl (PHENYLEPHRINE in 0.9% NACL PF) 1 mg STK-MED ONCE IV ; Start 09/13/18 at 12:51; Stop 09/13/18 at 12:52; Status DC Rocuronium [place] (Zemuron) 50 mg STK-MED ONCE .ROUTE ; Start 09/13/18 at 13:36; Stop 09/13/18 at 13:37; Status DC Fentanyl Citrate (Fentanyl 5ml Vial) 250 mcg STK-MED ONCE .ROUTE ; Start 09/13/18 at 13:51; Stop 09/13/18 at 13:52; Status DC Neostigmine Methylsulfate (Neostigmine Methylsulfate) 5 mg STK-MED ONCE .ROUTE ; Start 09/13/18 at 13:57; Stop 09/13/18 at 13:58; Status DC Glycopyrrolate (Robinul) 1 mg STK-MED ONCE .ROUTE ; Start 09/13/18 at 13:57; Stop 09/13/18 at 13:58; Status DC Esmolol HCl (Brevibloc) 100 mg STK-MED ONCE IVP ; Start 09/13/18 at 14:00; Stop 09/13/18 at 14:01; Status DC Sevoflurane (Ultane) 90 ml STK-MED ONCE IH ; Start 09/13/18 at 14:19; Stop 09/13/18 at 14:20; Status DC Enoxaparin Sodium (Lovenox 40mg Syringe) 40 mg Q24H SQ ; Start 09/13/18 at 16:00; Status Cancel Sodium Chloride (Normal Saline Flush) 3 ml QSHIFT PRN IV AFTER MEDS AND BLOOD DRAWS; Start 09/13/18 at 15:15 Ringer's Solution 1,000 ml @ 100 mls/hr Q10H IV Last administered on 09/14/18at 01:04; Start 09/13/18 at 15:04; Stop 09/14/18 at 11:39; Status DC Naloxone HCl (Narcan) 0.4 mg PRN Q2MIN PRN IV SEE INSTRUCTIONS; Start 09/13/18 at 15:15 Sodium Chloride 1,000 ml @ 25 mls/hr Q24H IV ; Start 09/13/18 at 15:04; Stop 09/16/18 at 10:36; Status DC Morphine Sulfate 30 ml @ 0 mls/hr CONT PRN PRN IV PER PROTOCOL; Start 09/13/18 at 15:15 Lidocaine HCl (Lidocaine HCl 2% Abboject) 100 mg STK-MED ONCE .ROUTE ; Start 09/13/18 at 15:35; Stop 09/13/18 at 15:36; Status DC Lidocaine HCl (Lidocaine HCl 2% Abboject) 100 mg 1X ONCE IV Last administered on 09/13/18at 15:45; Start 09/13/18 at 15:45; Stop 09/13/18 at 15:46; Status DC Enoxaparin Sodium (Lovenox 40mg Syringe) 40 mg Q24H SQ Last administered on 09/17/18at 08:31; Start 09/14/18 at 09:00 Metoprolol Tartrate (Lopressor Vial) 5 mg Q8HRS IVP Last administered on 09/15/18at 05:48; Start 09/14/18 at 06:00; Stop 09/15/18 at 10:30; Status DC Metoprolol Tartrate (Lopressor Vial) 5 mg 1X ONCE IVP Last administered on at 18:42; Start 09/13/18 at 18:45; Stop 09/13/18 at 18:46; Status DC Amino Acids/ Glycerin/ Electrolytes 1,000 ml @ 75 mls/hr [id number] IV Last administered on 09/17/18at 08:30; Start 09/14/18 at 11:45 Pantoprazole Sodium (PROTONIX VIAL for IV PUSH) 40 mg DAILYAC IVP Last administered on 09/16/18at 08:38; Start 09/15/18 at 07:30; Stop 09/16/18 at 10:36; Status DC Pantoprazole Sodium (PROTONIX VIAL for IV PUSH) 40 mg 1X ONCE IVP Last administered on 09/14/18at 12:04; Start 09/14/18 at 12:00; Stop 09/14/18 at 12:01; Status DC Metoprolol Tartrate (Lopressor Vial) 5 mg PRN Q4HRS PRN IVP TACHYCARDIA Last administered on 09/17/18at 08:34; Start 09/15/18 at 10:30 Metoprolol Succinate (Toprol Xl) 25 mg BID PO Last administered on 09/15/18at 20:30; Start 09/15/18 at 12:00; Stop 09/16/18 at 10:48; Status DC Pantoprazole Sodium (Protonix) 40 mg DAILYAC PO Last administered on 09/17/18at 08:31; Start 09/17/18 at 07:30 Metoprolol Succinate (Toprol Xl) 25 mg Q6HRS PO Last administered on 09/17/18at 12:00; Start 09/16/18 at 12:00 Prochlorperazine Edisylate (Compazine) 10 mg PRN Q8HRS PRN IV NAUSEA/VOMITING; Start 09/16/18 at 15:15 Active Scripts Active Ondansetron Odt (Ondansetron) 4 Mg Tab.rapdis 1 Tab PO PRN Q6-8HRS Protonix (Pantoprazole Sodium) 40 Mg Tablet.dr 1 Tab PO DAILY Reported Zocor (Simvastatin) 40 Mg Tablet 40 Mg PO HS Toprol Xl (Metoprolol Succinate) 25 Mg Tab.er.24h 25 Mg PO HS Aspir 81 (Aspirin) 81 Mg Tablet.dr 81 Mg PO DAILY Vitals/I & O Vital Sign - Last 24 Hours 09/16/18 09/16/18 09/16/18 09/16/18 13:30 13:33 15:00 18:00 Temp 97.8 97.8 Pulse 97 101 Resp 18 B/P (MAP) 96/71 116/75 (89) Pulse Ox 93 O2 Delivery Room Air Room Air Room Air 09/16/18 09/16/18 09/16/18 09/16/18 18:00 18:46 19:05 19:35 Temp 97.7 97.7 Pulse 101 102 Resp 18 B/P (MAP) 119/80 152/69 (96) Pulse Ox 93 O2 Delivery Room Air Room Air Room Air 09/16/18 09/16/18 09/17/18 09/17/18 20:00 22:35 03:29 05:54 Temp 98.0 98.0 Pulse 162 105 83 111 Resp 20 17 B/P (MAP) 152/69 154/76 (102) 160/80 (106) 111/68 Pulse Ox 94 93 O2 Delivery Room Air Room Air 09/17/18 09/17/18 09/17/18 09/17/18 07:00 08:00 08:34 11:00 Temp 98.3 98.1 98.3 98.1 Pulse 74 102 79 Resp 18 18 B/P (MAP) 101/58 (72) 109/58 160/96 (117) Pulse Ox 99 93 O2 Delivery Room Air Room Air Room Air 09/17/18 09/17/18 12:00 12:11 Pulse 79 B/P (MAP) 160/96 O2 Delivery Room Air Intake and Output 09/16/18 09/16/18 09/17/18 15:00 23:00 07:00 Intake Total 120 ml 1784 ml 100 ml Balance 120 ml 1784 ml 100 ml TITO DESAI III DO September 17, 2018 12:50
[2018-09-17 15:00] VITALS: BP 109/67
[2018-09-17 19:00] VITALS: BP 130/64
[2018-09-17] MEDS: HYDROcodone/APAP 5/325MG 1 TAB TABLET PO PRN (20:50)
[2018-09-17] MEDS: ATORVASTATIN CALCIUM 20 MG TABLET PO SCH (20:50)
[2018-09-17] MEDS: traZODone 50 MG TABLET. PO SCH (20:50)
[2018-09-17 23:00] VITALS: BP 101/69
[2018-09-18] MEDS: METOPROLOL SUCC 24HR ER 25 MG TAB.ER.24H. PO SCH ×4 (00:26→17:19)
[2018-09-18 03:00] VITALS: BP 104/63
[2018-09-18 04:55] LABS: BASO % 0 % (0-3); EOS # 0.1 x10^3/uL (0.0-0.7); EOS % 2 % (0-3); HEMATOCRIT 36.9 % (39.0-53.0); HEMOGLOBIN 12.3 g/dL (13.0-17.5); LYMPH # 0.5 x10^3/uL (1.0-4.8); LYMPH % 10 % (24-48); MEAN CORPUSCULAR HEMOGLOBIN 30 pg (25-35); MEAN CORPUSCULAR HGB CONC 33 g/dL (31-37); MEAN CORPUSCULAR VOLUME 90 fL (79-100); MONO # 0.6 x10^3/uL (0.0-1.1); MONO % 12 % (0-9); NEUT # 3.9 x10^3uL (1.8-7.7); NEUT % 76 % (31-73); PLATELET COUNT 98 x10^3/uL (140-400); RED BLOOD COUNT 4.11 x10^6/uL (4.30-5.70); RED CELL DISTRIBUTION WIDTH 14.3 % (11.5-14.5); WHITE BLOOD COUNT 5.2 x10^3/uL (4.0-11.0)
[2018-09-18 05:30] LABS: CALCIUM 8.6 mg/dL (8.5-10.1); CREATININE 0.9 mg/dL (0.7-1.3); GFR 82.3; POTASSIUM 4.4 mmol/L (3.5-5.1)
[2018-09-18] MEDS: AMINO AC 3%/ELECTROLYTE/GLYCER 1,000 ML IV SCH ×2 (05:58→17:19)
[2018-09-18 07:00] VITALS: BP 94/59
[2018-09-18] MEDS: PANTOPRAZOLE 40 MG TABLET.DR. PO SCH (07:37)
--- NOTE | 2018-09-18 08:39 | PDOC ---
[employer] 09/18/18 0839: SURGICAL PROGRESS NOTE Subjective resting reports not feeling well some nausea some flatus yesterday Vital Signs Vital Signs Date Time Temp Pulse Resp B/P (MAP) Pulse Ox O2 Delivery O2 Flow Rate FiO2 09/18/18 07:59 Room Air 09/18/18 07:00 97.6 81 20 94/59 (71) 93 97.6 09/17/18 12:41 2.0 I&O Intake and Output 09/18/18 07:00 Intake Total 50 ml Output Total 410 ml Balance -360 ml Intake Oral 50 ml Output Urine Total 410 ml # Voids 2 General: Cooperative, No acute distress Abdomen: Soft, Other (ND, mild ttp, incision c/d/i, no erythema ) Labs Laboratory Tests Test 09/17/18 04:45 09/18/18 03:45 White Blood Count 7.4 x10^3/uL (4.0-11.0) 5.2 x10^3/uL (4.0-11.0) Red Blood Count 4.55 x10^6/uL (4.30-5.70) 4.11 x10^6/uL (4.30-5.70) Hemoglobin 13.9 g/dL (13.0-17.5) 12.3 g/dL (13.0-17.5) Hematocrit 40.9 % (39.0-53.0) 36.9 % (39.0-53.0) Mean Corpuscular Volume 90 fL (79-100) 90 fL (79-100) Mean Corpuscular Hemoglobin 31 pg (25-35) 30 pg (25-35) Mean Corpuscular Hemoglobin Concent 34 g/dL (31-37) 33 g/dL (31-37) Red Cell Distribution Width 14.6 % (11.5-14.5) 14.3 % (11.5-14.5) Platelet Count 114 x10^3/uL (140-400) 98 x10^3/uL (140-400) Neutrophils (%) (Auto) 84 % (31-73) 76 % (31-73) Lymphocytes (%) (Auto) 6 % (24-48) 10 % (24-48) Monocytes (%) (Auto) 9 % (0-9) 12 % (0-9) Eosinophils (%) (Auto) 0 % (0-3) 2 % (0-3) Basophils (%) (Auto) 0 % (0-3) 0 % (0-3) Neutrophils # (Auto) 6.3 x10^3uL (1.8-7.7) 3.9 x10^3uL (1.8-7.7) Lymphocytes # (Auto) 0.4 x10^3/uL (1.0-4.8) 0.5 x10^3/uL (1.0-4.8) Monocytes # (Auto) 0.7 x10^3/uL (0.0-1.1) 0.6 x10^3/uL (0.0-1.1) Eosinophils # (Auto) 0.0 x10^3/uL (0.0-0.7) 0.1 x10^3/uL (0.0-0.7) Basophils # (Auto) 0.0 x10^3/uL (0.0-0.2) 0.0 x10^3/uL (0.0-0.2) Sodium Level 131 mmol/L (136-145) 130 mmol/L (136-145) Potassium Level 4.6 mmol/L (3.5-5.1) 4.4 mmol/L (3.5-5.1) Chloride Level 96 mmol/L (98-107) 97 mmol/L (98-107) Carbon Dioxide Level 26 mmol/L (21-32) 23 mmol/L (21-32) Anion Gap 9 (6-14) 10 (6-14) Blood Urea Nitrogen 26 mg/dL (8-26) 29 mg/dL (8-26) Creatinine 1.0 mg/dL (0.7-1.3) 0.9 mg/dL (0.7-1.3) Estimated GFR (Cockcroft-Gault) 72.8 82.3 Glucose Level 153 mg/dL (70-99) 117 mg/dL (70-99) Calcium Level 8.6 mg/dL (8.5-10.1) 8.6 mg/dL (8.5-10.1) Laboratory Tests Test 09/18/18 03:45 White Blood Count 5.2 x10^3/uL (4.0-11.0) Red Blood Count 4.11 x10^6/uL (4.30-5.70) Hemoglobin 12.3 g/dL (13.0-17.5) Hematocrit 36.9 % (39.0-53.0) Mean Corpuscular Volume 90 fL (79-100) Mean Corpuscular Hemoglobin 30 pg (25-35) Mean Corpuscular Hemoglobin Concent 33 g/dL (31-37) Red Cell Distribution Width 14.3 % (11.5-14.5) Platelet Count 98 x10^3/uL (140-400) Neutrophils (%) (Auto) 76 % (31-73) Lymphocytes (%) (Auto) 10 % (24-48) Monocytes (%) (Auto) 12 % (0-9) Eosinophils (%) (Auto) 2 % (0-3) Basophils (%) (Auto) 0 % (0-3) Neutrophils # (Auto) 3.9 x10^3uL (1.8-7.7) Lymphocytes # (Auto) 0.5 x10^3/uL (1.0-4.8) Monocytes # (Auto) 0.6 x10^3/uL (0.0-1.1) Eosinophils # (Auto) 0.1 x10^3/uL (0.0-0.7) Basophils # (Auto) 0.0 x10^3/uL (0.0-0.2) Sodium Level 130 mmol/L (136-145) Potassium Level 4.4 mmol/L (3.5-5.1) Chloride Level 97 mmol/L (98-107) Carbon Dioxide Level 23 mmol/L (21-32) Anion Gap 10 (6-14) Blood Urea Nitrogen 29 mg/dL (8-26) Creatinine 0.9 mg/dL (0.7-1.3) Estimated GFR (Cockcroft-Gault) 82.3 Glucose Level 117 mg/dL (70-99) Calcium Level 8.6 mg/dL (8.5-10.1) Problem List Problems Medical Problems: (1) Hypokalemia Status: Acute Assessment/Plan s/p colectomy await improved bowel function, continue liquids for now ANDREA DUNCAN MD 09/18/18 1439: SURGICAL PROGRESS NOTE Assessment/Plan Pt without new c/o, mira some PO, no flatus abd soft, mild TTP RLQ incision await bowel fxn path benign [employer] September 18, 2018 08:39 ANDREA DUNCAN MD September 18, 2018 14:39
[2018-09-18] MEDS: POLYETHYLENE GLYCOL 3350 17 GM PACKET. PO PRN (09:13)
[2018-09-18] MEDS: ENOXAPARIN 40 MG/0.4 ML SYRINGE. SQ SCH (09:14)
[2018-09-18] MEDS: ASPIRIN ENTERIC COATED 81 MG TABLET.DR. PO SCH (09:14)
[2018-09-18] MEDS: HYDROcodone/APAP 5/325MG 1 TAB TABLET PO PRN ×2 (09:21→21:34)
--- NOTE | 2018-09-18 10:57 | PDOC ---
Objective: Objective: Reviewed w/ RN - eating some full liquids, no stool. Reviewed surgery note - nausea, not feeling well, flatus yesterday. Vital Signs: Vital Signs Date Time Temp Pulse Resp B/P (MAP) Pulse Ox O2 Delivery O2 Flow Rate FiO2 09/18/18 09:21 Room Air 09/18/18 07:00 97.6 81 20 94/59 (71) 93 97.6 09/17/18 12:41 2.0 Labs: Laboratory Tests Test 09/18/18 03:45 White Blood Count 5.2 x10^3/uL Red Blood Count 4.11 x10^6/uL Hemoglobin 12.3 g/dL Hematocrit 36.9 % Mean Corpuscular Volume 90 fL Mean Corpuscular Hemoglobin 30 pg Mean Corpuscular Hemoglobin Concent 33 g/dL Red Cell Distribution Width 14.3 % Platelet Count 98 x10^3/uL Neutrophils (%) (Auto) 76 % Lymphocytes (%) (Auto) 10 % Monocytes (%) (Auto) 12 % Eosinophils (%) (Auto) 2 % Basophils (%) (Auto) 0 % Neutrophils # (Auto) 3.9 x10^3uL Lymphocytes # (Auto) 0.5 x10^3/uL Monocytes # (Auto) 0.6 x10^3/uL Eosinophils # (Auto) 0.1 x10^3/uL Basophils # (Auto) 0.0 x10^3/uL Sodium Level 130 mmol/L Potassium Level 4.4 mmol/L Chloride Level 97 mmol/L Carbon Dioxide Level 23 mmol/L Anion Gap 10 Blood Urea Nitrogen 29 mg/dL Creatinine 0.9 mg/dL Estimated GFR (Cockcroft-Gault) 82.3 Glucose Level 117 mg/dL Calcium Level 8.6 mg/dL PE: GEN: NAD NEURO/PSYCH: sleeping, not awakened A/P: Chilaiditi's syndrome s/p right hemicolectomy -- Continue per surgery. JORDON RODARTE September 18, 2018 10:57
[2018-09-18 11:00] VITALS: BP 108/67
--- NOTE | 2018-09-18 11:19 | PDOC ---
[employer] PROGRESS NOTE Chief Complaint Chief Complaint Postop day 5 colon resection Chilaiditi Syndrome RLQ pain/R flank pain nephrolithiasis L renal cyst GERD HLD HTN OA hx of SC Prior back surgery History of Present Illness History of Present Illness Patient seen and examined Would site clean and intact S/P partial colon resection p.o. day 5 Patient states having no appetite- is on full liquid diet Denies having BM Discussed with nurse Vitals Vitals Vital Signs Date Time Temp Pulse Resp B/P (MAP) Pulse Ox O2 Delivery O2 Flow Rate FiO2 09/18/18 09:21 Room Air 09/18/18 07:00 97.6 81 20 94/59 (71) 93 97.6 09/17/18 12:41 2.0 Physical Exam General: Alert, Oriented X3, Cooperative, No acute distress Heart: Regular rate, Normal S1, Normal S2, Other (2/6 systolic murmur, intermittant SVT) Lungs: Clear Abdomen: Soft, Other (ND, mild ttp, incision c/d/i, no erythema ) Extremities: No clubbing, No cyanosis Skin: No rashes, No breakdown Labs LABS Laboratory Tests Test 09/18/18 03:45 White Blood Count 5.2 x10^3/uL (4.0-11.0) Red Blood Count 4.11 x10^6/uL (4.30-5.70) Hemoglobin 12.3 g/dL (13.0-17.5) Hematocrit 36.9 % (39.0-53.0) Mean Corpuscular Volume 90 fL (79-100) Mean Corpuscular Hemoglobin 30 pg (25-35) Mean Corpuscular Hemoglobin Concent 33 g/dL (31-37) Red Cell Distribution Width 14.3 % (11.5-14.5) Platelet Count 98 x10^3/uL (140-400) Neutrophils (%) (Auto) 76 % (31-73) Lymphocytes (%) (Auto) 10 % (24-48) Monocytes (%) (Auto) 12 % (0-9) Eosinophils (%) (Auto) 2 % (0-3) Basophils (%) (Auto) 0 % (0-3) Neutrophils # (Auto) 3.9 x10^3uL (1.8-7.7) Lymphocytes # (Auto) 0.5 x10^3/uL (1.0-4.8) Monocytes # (Auto) 0.6 x10^3/uL (0.0-1.1) Eosinophils # (Auto) 0.1 x10^3/uL (0.0-0.7) Basophils # (Auto) 0.0 x10^3/uL (0.0-0.2) Sodium Level 130 mmol/L (136-145) Potassium Level 4.4 mmol/L (3.5-5.1) Chloride Level 97 mmol/L (98-107) Carbon Dioxide Level 23 mmol/L (21-32) Anion Gap 10 (6-14) Blood Urea Nitrogen 29 mg/dL (8-26) Creatinine 0.9 mg/dL (0.7-1.3) Estimated GFR (Cockcroft-Gault) 82.3 Glucose Level 117 mg/dL (70-99) Calcium Level 8.6 mg/dL (8.5-10.1) Review of Systems Review of Systems Patient complains of nausea, no emesis Patient denies TAO Assessment and Plan Assessmemt and Plan Problems Medical Problems: (1) Hypokalemia Status: Acute Assessment: Postop day 5 partial colon resection Chilaiditi Syndrome RLQ pain/R flank pain nephrolithiasis L renal cyst GERD HLD HTN OA hx of SC Prior back surgery Plan: Cardiac monitoring Continue Beta Blockade PO protonix Full liquid diet PPN PRN pain medication Home meds Labs Wound care PT/OT DVT ppx Full code Hope to discharge to [facility]U when okay with subspecialists Cardiology, GI, Uro, Gen Surgery following Comment Review of Relevant I have reviewed the following items jensen (where applicable) has been applied. Labs Laboratory Tests Test 09/17/18 04:45 09/18/18 03:45 White Blood Count 7.4 x10^3/uL (4.0-11.0) 5.2 x10^3/uL (4.0-11.0) Red Blood Count 4.55 x10^6/uL (4.30-5.70) 4.11 x10^6/uL (4.30-5.70) Hemoglobin 13.9 g/dL (13.0-17.5) 12.3 g/dL (13.0-17.5) Hematocrit 40.9 % (39.0-53.0) 36.9 % (39.0-53.0) Mean Corpuscular Volume 90 fL (79-100) 90 fL (79-100) Mean Corpuscular Hemoglobin 31 pg (25-35) 30 pg (25-35) Mean Corpuscular Hemoglobin Concent 34 g/dL (31-37) 33 g/dL (31-37) Red Cell Distribution Width 14.6 % (11.5-14.5) 14.3 % (11.5-14.5) Platelet Count 114 x10^3/uL (140-400) 98 x10^3/uL (140-400) Neutrophils (%) (Auto) 84 % (31-73) 76 % (31-73) Lymphocytes (%) (Auto) 6 % (24-48) 10 % (24-48) Monocytes (%) (Auto) 9 % (0-9) 12 % (0-9) Eosinophils (%) (Auto) 0 % (0-3) 2 % (0-3) Basophils (%) (Auto) 0 % (0-3) 0 % (0-3) Neutrophils # (Auto) 6.3 x10^3uL (1.8-7.7) 3.9 x10^3uL (1.8-7.7) Lymphocytes # (Auto) 0.4 x10^3/uL (1.0-4.8) 0.5 x10^3/uL (1.0-4.8) Monocytes # (Auto) 0.7 x10^3/uL (0.0-1.1) 0.6 x10^3/uL (0.0-1.1) Eosinophils # (Auto) 0.0 x10^3/uL (0.0-0.7) 0.1 x10^3/uL (0.0-0.7) Basophils # (Auto) 0.0 x10^3/uL (0.0-0.2) 0.0 x10^3/uL (0.0-0.2) Sodium Level 131 mmol/L (136-145) 130 mmol/L (136-145) Potassium Level 4.6 mmol/L (3.5-5.1) 4.4 mmol/L (3.5-5.1) Chloride Level 96 mmol/L (98-107) 97 mmol/L (98-107) Carbon Dioxide Level 26 mmol/L (21-32) 23 mmol/L (21-32) Anion Gap 9 (6-14) 10 (6-14) Blood Urea Nitrogen 26 mg/dL (8-26) 29 mg/dL (8-26) Creatinine 1.0 mg/dL (0.7-1.3) 0.9 mg/dL (0.7-1.3) Estimated GFR (Cockcroft-Gault) 72.8 82.3 Glucose Level 153 mg/dL (70-99) 117 mg/dL (70-99) Calcium Level 8.6 mg/dL (8.5-10.1) 8.6 mg/dL (8.5-10.1) Laboratory Tests Test 09/18/18 03:45 White Blood Count 5.2 x10^3/uL (4.0-11.0) Red Blood Count 4.11 x10^6/uL (4.30-5.70) Hemoglobin 12.3 g/dL (13.0-17.5) Hematocrit 36.9 % (39.0-53.0) Mean Corpuscular Volume 90 fL (79-100) Mean Corpuscular Hemoglobin 30 pg (25-35) Mean Corpuscular Hemoglobin Concent 33 g/dL (31-37) Red Cell Distribution Width 14.3 % (11.5-14.5) Platelet Count 98 x10^3/uL (140-400) Neutrophils (%) (Auto) 76 % (31-73) Lymphocytes (%) (Auto) 10 % (24-48) Monocytes (%) (Auto) 12 % (0-9) Eosinophils (%) (Auto) 2 % (0-3) Basophils (%) (Auto) 0 % (0-3) Neutrophils # (Auto) 3.9 x10^3uL (1.8-7.7) Lymphocytes # (Auto) 0.5 x10^3/uL (1.0-4.8) Monocytes # (Auto) 0.6 x10^3/uL (0.0-1.1) Eosinophils # (Auto) 0.1 x10^3/uL (0.0-0.7) Basophils # (Auto) 0.0 x10^3/uL (0.0-0.2) Sodium Level 130 mmol/L (136-145) Potassium Level 4.4 mmol/L (3.5-5.1) Chloride Level 97 mmol/L (98-107) Carbon Dioxide Level 23 mmol/L (21-32) Anion Gap 10 (6-14) Blood Urea Nitrogen 29 mg/dL (8-26) Creatinine 0.9 mg/dL (0.7-1.3) Estimated GFR (Cockcroft-Gault) 82.3 Glucose Level 117 mg/dL (70-99) Calcium Level 8.6 mg/dL (8.5-10.1) Medications Current Medications Adenosine (Adenocard) 6 mg STK-MED ONCE IV ; Start 09/11/18 at 10:13; Stop at 10:14; Status DC Adenosine (Adenocard) 12 mg 1X ONCE IV ; Start 09/11/18 at 10:15; Stop 09/11/18 at 10:17; Status DC Sodium Chloride 1,000 ml @ 1,000 mls/hr Q1H IV Last administered on 09/11/18at 10:42; Start 09/11/18 at 10:13; Stop 09/11/18 at 11:12; Status DC Adenosine (Adenocard) 6 mg 1X ONCE IV ; Start 09/11/18 at 10:15; Stop 09/11/18 at 10:17; Status DC Ondansetron HCl (Zofran) 4 mg 1X ONCE IV Last administered on 09/11/18at 10:46; Start 09/11/18 at 10:45; Stop 09/11/18 at 10:46; Status DC Potassium Chloride (Klor-Con) 40 meq 1X ONCE PO Last administered on 09/11/18at 13:01; Start 09/11/18 at 11:15; Stop 09/11/18 at 11:16; Status DC Aspirin (Ecotrin) 81 mg DAILY PO Last administered on 09/18/18at 09:14; Start 09/11/18 at 13:00 Metoprolol Succinate (Toprol Xl) 25 mg HS PO ; Start 09/11/18 at 21:00; Stop 09/11/18 at 21:00; Status DC Ondansetron HCl (Zofran Odt) 4 mg PRN Q6HRS PRN PO NAUSEA/VOMITING Last administered on 09/17/18 20:50; Start 09/11/18 at 13:00 Pantoprazole Sodium (Protonix) 40 mg DAILYAC PO Last administered on 09/13/18 09:36; Start 09/11/18 at 13:00; Stop 09/14/18 at 11:54; Status DC Simvastatin (Zocor) 40 mg QHS PO Last administered on 09/11/18 20:46; Start 09/11/18 at 21:00; Stop 09/12/18 at 15:50; Status DC Ondansetron HCl (Zofran) 4 mg STK-MED ONCE .ROUTE ; Start 09/11/18 at 10:46; Stop 09/11/18 at 12:12; Status DC Sodium Chloride 1,000 ml @ 100 mls/hr 1X ONCE IV Last administered on 09/11/18 13:04; Start 09/11/18 at 12:45; Stop 09/11/18 at 22:44; Status DC Iohexol (Omnipaque 240 Mg/ml) 50 ml 1X ONCE PO Last administered on 09/11/18 14:40; Start 09/11/18 at 13:15; Stop 09/11/18 at 13:23; Status DC Iohexol (Omnipaque 300 Mg/ml) 75 ml 1X ONCE IV Last administered on 09/11/18 14:40; Start 09/11/18 at 13:15; Stop 09/11/18 at 13:23; Status DC Info (CONTRAST GIVEN -- Rx MONITORING) 1 each PRN DAILY PRN MC SEE COMMENTS; Start 09/11/18 at 13:30; Stop 09/13/18 at 13:29; Status DC Ondansetron HCl (Zofran) 4 mg PRN Q6HRS PRN IV NAUSEA/VOMITING 1ST CHOICE Last administered on 09/17/18 08:30; Start 09/11/18 at 15:00 Prochlorperazine Edisylate (Compazine) 10 mg PRN Q6HRS PRN IV NAUSEA/VOMITING 2ND CHOICE Last administered on 09/17/18 09:48; Start 09/11/18 at 15:00 Metoprolol Succinate (Toprol Xl) 50 mg HS PO Last administered on 09/12/18 20:30; Start 09/11/18 at 21:00; Stop 09/14/18 at 14:39; Status DC Morphine Sulfate (Morphine Sulfate) 2 mg PRN Q4HRS PRN IV MODERATE-SEVERE PAIN Last administered on 09/17/18 12:11; Start 09/11/18 at 17:45 Acetaminophen/ Hydrocodone Bitart (Lortab 5/325) 1 tab PRN Q6HRS PRN PO PAIN Last administered on 09/18/18 09:21; Start 09/11/18 at 17:45 Tamsulosin HCl (Flomax) 0.4 mg DAILY PO ; Start 09/12/18 at 10:00; Stop 09/12/18 at 10:37; Status DC Polyethylene Glycol (miraLAX PACKET) 17 gm PRN DAILY PRN PO CONSTIPATION Last administered on 09/18/18 09:13; Start 09/12/18 at 09:15 Ketorolac Tromethamine (Toradol 30mg Vial) 30 mg PRN Q6HRS PRN IV MILD PAIN Last administered on 09/17/18 09:49; Start 09/12/18 at 10:15; Stop 09/17/18 at 10:14; Status DC Meclizine HCl (Antivert) 12.5 mg PRN Q6HRS PRN PO DIZZINESS Last administered on 09/17/18 08:30; Start 09/12/18 at 11:15 Sodium Monofluorophosphate (Fleet Adult) 133 ml 1X ONCE [place] Last administered on 09/12/18 16:13; Start 09/12/18 at 14:45; Stop 09/12/18 at 14:46; Status DC Magnesium Citrate (Citroma) 296 ml 1X ONCE PO Last administered on 09/12/18 16:12; Start 09/12/18 at 16:00; Stop 09/12/18 at 16:01; Status DC Erythromycin (E-Mycin) 500 mg TID PO Last administered on 09/13/18 09:39; Start 09/12/18 at 15:00; Stop 09/14/18 at 11:39; Status DC Neomycin Sulfate (Neomycin Sulfate) 500 mg TID PO Last administered on 09/13/18 09:39; Start 09/12/18 at 16:00; Stop 09/14/18 at 11:39; Status DC Cefoxitin Sodium (Mefoxin) 2 gm 1X PERIOP ONCE IVP Last administered on 09/13/18at 12:40; Start 09/13/18 at 12:00; Stop 09/13/18 at 12:01; Status DC Atorvastatin Calcium (Lipitor) 20 mg QHS PO Last administered on 09/17/18at 20:50; Start 09/12/18 at 21:00 Ondansetron HCl (Zofran) 4 mg PRN Q6HRS PRN IV NAUSEA/VOMITING; Start 09/13/18 at 07:00; Stop 09/14/18 at 06:59; Status DC Fentanyl Citrate (Fentanyl 2ml Vial) 25 mcg PRN Q5MIN PRN IV MILD PAIN; Start 09/13/18 at 07:00; Stop 09/14/18 at 06:59; Status DC Fentanyl Citrate (Fentanyl 2ml Vial) 50 mcg PRN Q5MIN PRN IV MODERATE TO SEVERE PAIN; Start 09/13/18 at 07:00; Stop 09/14/18 at 06:59; Status DC Morphine Sulfate (Morphine Sulfate) 1 mg PRN Q10MIN PRN IV SEVERE PAIN; Start 09/13/18 at 07:00; Stop 09/14/18 at 06:59; Status DC Ringer's Solution 1,000 ml @ 30 mls/hr Q24H IV Last administered on 09/13/18at 06:32; Start 09/13/18 at 07:00; Stop 09/13/18 at 16:44; Status DC Lidocaine HCl (Xylocaine-Mpf 1% 2ml Vial) 2 ml PRN 1X PRN ID PRIOR TO IV START; Start 09/13/18 at 07:00; Stop 09/14/18 at 06:59; Status DC Hydromorphone HCl (Dilaudid) 0.5 mg PRN Q10MIN PRN IV SEV PAIN, Second choice; Start 09/13/18 at 07:00; Stop 09/14/18 at 06:59; Status DC Prochlorperazine Edisylate (Compazine) 5 mg PACU PRN PRN IV NAUSEA, MRX1; Start 09/13/18 at 07:00; Stop 09/14/18 at 06:59; Status DC Lorazepam (Ativan) 0.5 mg PRN Q6HRS PRN IV ANXIETY / AGITATION Last administered on 09/18/18at 03:18; Start 09/12/18 at 19:45 Bupivacaine HCl/ Epinephrine Bitart (Sensorcain-Mpf Epi 0.5%-[id number]) 30 ml STK-MED ONCE .ROUTE Last administered on 09/13/18at 13:10; Start 09/13/18 at 10:55; Stop 09/13/18 at 11:55; Status DC Rocuronium [place] (Zemuron) 50 mg STK-MED ONCE .ROUTE ; Start 09/13/18 at 12:09; Stop 09/13/18 at 12:10; Status DC Midazolam HCl (Versed) 2 mg STK-MED ONCE .ROUTE ; Start 09/13/18 at 12:09; Stop 09/13/18 at 12:10; Status DC Fentanyl Citrate (Fentanyl 5ml Vial) 250 mcg STK-MED ONCE .ROUTE ; Start 09/13/18 at 12:09; Stop 09/13/18 at 12:10; Status DC Propofol 20 ml @ As Directed STK-MED ONCE IV ; Start 09/13/18 at 12:11; Stop 09/13/18 at 12:12; Status DC Lidocaine HCl (Lidocaine Pf 2% Vial) 5 ml STK-MED ONCE .ROUTE ; Start 09/13/18 at 12:11; Stop 09/13/18 at 12:12; Status DC Ondansetron HCl (Zofran) 4 mg STK-MED ONCE .ROUTE ; Start 09/13/18 at 12:11; Stop 09/13/18 at 12:12; Status DC Dexamethasone Sodium Phosphate (Decadron) 4 mg STK-MED ONCE .ROUTE ; Start 09/13/18 at 12:11; Stop 09/13/18 at 12:12; Status DC Cefoxitin Sodium (Mefoxin) 2 gm 1X ONCE IVP Last administered on 09/13/18at 14:40; Start 09/13/18 at 12:15; Stop 09/13/18 at 12:16; Status DC Ephedrine Sulfate (ePHEDrine PF IN SALINE SYRINGE) 50 mg STK-MED ONCE IV ; Start 09/13/18 at 12:51; Stop 09/13/18 at 12:52; Status DC Phenylephrine HCl (PHENYLEPHRINE in 0.9% NACL PF) 1 mg STK-MED ONCE IV ; Start 09/13/18 at 12:51; Stop 09/13/18 at 12:52; Status DC Rocuronium [place] (Zemuron) 50 mg STK-MED ONCE .ROUTE ; Start 09/13/18 at 13:36; Stop 09/13/18 at 13:37; Status DC Fentanyl Citrate (Fentanyl 5ml Vial) 250 mcg STK-MED ONCE .ROUTE ; Start 09/13/18 at 13:51; Stop 09/13/18 at 13:52; Status DC Neostigmine Methylsulfate (Neostigmine Methylsulfate) 5 mg STK-MED ONCE .ROUTE ; Start 09/13/18 at 13:57; Stop 09/13/18 at 13:58; Status DC Glycopyrrolate (Robinul) 1 mg STK-MED ONCE .ROUTE ; Start 09/13/18 at 13:57; Stop 09/13/18 at 13:58; Status DC Esmolol HCl (Brevibloc) 100 mg STK-MED ONCE IVP ; Start 09/13/18 at 14:00; Stop 09/13/18 at 14:01; Status DC Sevoflurane (Ultane) 90 ml STK-MED ONCE IH ; Start 09/13/18 at 14:19; Stop at 14:20; Status DC Enoxaparin Sodium (Lovenox 40mg Syringe) 40 mg Q24H SQ ; Start 09/13/18 at 16:00; Status Cancel Sodium Chloride (Normal Saline Flush) 3 ml QSHIFT PRN IV AFTER MEDS AND BLOOD DRAWS; Start 09/13/18 at 15:15 Ringer's Solution 1,000 ml @ 100 mls/hr Q10H IV Last administered on 09/14/18at 01:04; Start 09/13/18 at 15:04; Stop 09/14/18 at 11:39; Status DC Naloxone HCl (Narcan) 0.4 mg PRN Q2MIN PRN IV SEE INSTRUCTIONS; Start 09/13/18 at 15:15 Sodium Chloride 1,000 ml @ 25 mls/hr Q24H IV ; Start 09/13/18 at 15:04; Stop 09/16/18 at 10:36; Status DC Morphine Sulfate 30 ml @ 0 mls/hr CONT PRN PRN IV PER PROTOCOL; Start 09/13/18 at 15:15 Lidocaine HCl (Lidocaine HCl 2% Abboject) 100 mg STK-MED ONCE .ROUTE ; Start 09/13/18 at 15:35; Stop 09/13/18 at 15:36; Status DC Lidocaine HCl (Lidocaine HCl 2% Abboject) 100 mg 1X ONCE IV Last administered on 09/13/18at 15:45; Start 09/13/18 at 15:45; Stop 09/13/18 at 15:46; Status DC Enoxaparin Sodium (Lovenox 40mg Syringe) 40 mg Q24H SQ Last administered on at 09:14; Start 09/14/18 at 09:00 Metoprolol Tartrate (Lopressor Vial) 5 mg Q8HRS IVP Last administered on 09/15/18at 05:48; Start 09/14/18 at 06:00; Stop 09/15/18 at 10:30; Status DC Metoprolol Tartrate (Lopressor Vial) 5 mg 1X ONCE IVP Last administered on 09/13/18at 18:42; Start 09/13/18 at 18:45; Stop 09/13/18 at 18:46; Status DC Amino Acids/ Glycerin/ Electrolytes 1,000 ml @ 75 mls/hr [id number] IV Last administered on 09/18/18at 05:58; Start 09/14/18 at 11:45 Pantoprazole Sodium (PROTONIX VIAL for IV PUSH) 40 mg DAILYAC IVP Last administered on 09/16/18at 08:38; Start 09/15/18 at 07:30; Stop 09/16/18 at 10:36; Status DC Pantoprazole Sodium (PROTONIX VIAL for IV PUSH) 40 mg 1X ONCE IVP Last administered on 09/14/18at 12:04; Start 09/14/18 at 12:00; Stop 09/14/18 at 12:01; Status DC Metoprolol Tartrate (Lopressor Vial) 5 mg PRN Q4HRS PRN IVP TACHYCARDIA Last administered on 09/17/18at 08:34; Start 09/15/18 at 10:30 Metoprolol Succinate (Toprol Xl) 25 mg BID PO Last administered on 09/15/18at 20:30; Start 09/15/18 at 12:00; Stop 09/16/18 at 10:48; Status DC Pantoprazole Sodium (Protonix) 40 mg DAILYAC PO Last administered on 09/18/18at 07:37; Start 09/17/18 at 07:30 Metoprolol Succinate (Toprol Xl) 25 mg Q6HRS PO Last administered on 09/18/18at 06:31; Start 09/16/18 at 12:00 Prochlorperazine Edisylate (Compazine) 10 mg PRN Q8HRS PRN IV NAUSEA/VOMITING; Start 09/16/18 at 15:15 Trazodone HCl (Desyrel) 50 mg QHS PO Last administered on 09/17/18at 20:50; Start 09/17/18 at 21:00 Active Scripts Active Ondansetron Odt (Ondansetron) 4 Mg Tab.rapdis 1 Tab PO PRN Q6-8HRS Protonix (Pantoprazole Sodium) 40 Mg Tablet. 1 Tab PO DAILY Reported Zocor (Simvastatin) 40 Mg Tablet 40 Mg PO HS Toprol Xl (Metoprolol Succinate) 25 Mg Tab.er.24h 25 Mg PO HS Aspir 81 (Aspirin) 81 Mg Tablet. 81 Mg PO DAILY Vitals/I & O Vital Sign - Last 24 Hours 09/17/18 09/17/18 09/17/18 09/17/18 12:00 12:11 12:41 15:00 Temp 98.0 98.0 Pulse 79 68 Resp 18 B/P (MAP) 160/96 109/67 (81) Pulse Ox 93 95 O2 Delivery Room Air Room Air Room Air O2 Flow Rate 2.0 09/17/18 09/17/18 09/17/18 09/17/18 18:04 19:00 19:59 20:50 Temp 97.5 97.5 Pulse 88 48 Resp 18 20 B/P (MAP) 104/67 130/64 (86) Pulse Ox 94 O2 Delivery Room Air Room Air Room Air 09/17/18 09/17/18 09/18/18 09/18/18 21:50 23:00 00:26 03:00 Temp 97.4 97.5 97.4 97.5 Pulse 87 87 89 Resp 20 18 18 B/P (MAP) 101/69 (80) 101/69 104/63 (77) Pulse Ox 92 92 O2 Delivery Room Air Room Air 09/18/18 09/18/18 09/18/18 09/18/18 06:31 07:00 07:59 09:21 Temp 97.6 97.6 Pulse 89 81 Resp 20 B/P (MAP) 104/63 94/59 (71) Pulse Ox 93 O2 Delivery Room Air Room Air Room Air Intake and Output 09/17/18 09/17/18 09/18/18 14:59 22:59 06:59 Intake Total 50 ml Output Total 210 ml 200 ml Balance -160 ml -200 ml TITO DESAI III DO September 18, 2018 11:18
--- NOTE | 2018-09-18 12:18 | NUR ---
SS following up with discharge planning. Pt accepted at [facility]. Pt currently on full liquid diet and PPN and will need to advance diet prior to discharge. SS will continue to follow for discharge planning.
--- NOTE | 2018-09-18 14:06 | PATHOLOGY ---
[facility] Accession Number: [id number] . 01 Material submitted: . PART A: colon - RIGHT COLON. Modifiers: right PART B: small bowel - ADDITIONAL SMALL BOWEL . 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 - Recent hemorrhage of mesocolon. . B. Segment of small bowel, additional small bowel segmental resection: - Recent hemorrhage of mesentery. . (JPM:yazmin; 09/18/2018) MBR/09/18/2018 . 02 Comment: The diagnosis of Chilaiditi syndrome is noted. There is no evidence of an inflammatory process involving the small bowel or colon. There are multiple small tubular adenomas of the ascending colon. The margins of resection are negative for adenomas. (JPM:yazmin; 09/18/2018) . 02 Electronically signed: . Mati Andrade MD, Pathologist NPI- [id number] . 01 Gross description: . A. The specimen is received in formalin, labeled "Faby, Demetrio, right colon" and consists of a previously opened right hemicolectomy specimen consisting of terminal ileum (9.0 cm in length by up to 2.0 cm in diameter) with contiguous ascending colon (24.0 cm in length and approximately 3.9 cm in diameter). The appendix is present measuring 5.7 cm in length and 0.5 cm in diameter. Both margins are closed with boston and the mesocolic fat measures up to 7.0 cm thick. The terminal ileum mucosa is green-chi with no masses or lesions. The ascending colon mucosa is chi-brown with multiple polyps measuring between 0.2 and 0.4 cm. These polyps extend to within 4 cm of the ileocecal valve and greater than 10 cm from the distal resection margin. The serosa is prado-chi with creeping and partially hemorrhagic fat. The appendix is pink prado with sectioning revealing a central pinpoint lumen and no gross lesions. The mesocolic tissue reveals no readily identifiable lymph nodes. Science Education Professor sections are submitted as follows: . A1: Proximal margin A2: Distal margin A3: 5 ascending colon polyps A4: Appendix A5: Science Education Professor ascending colon showing overlying hemorrhagic mesocolic tissue A6: Hemorrhagic mesocolic tissue . B. The specimen is received in formalin, labeled "Faby, Demetrio, additional small bowel" and consists of an unoriented segment of small bowel measuring 6.0 cm in length and up to 2.2 cm in diameter with attached hemorrhagic mesocolic tissue measuring up to 4.9 cm thick. Both margins are closed with boston. Opening reveals a green chi mucosa with no masses or lesions. Science Education Professor sections are submitted as follows: . B1: Both margins B2-B3: Science Education Professor section of mucosa with attached hemorrhagic mesocolic tissue (SDY; 09/15/2018) SYU/SYU . 02 Pathologist provided ICD-10: D12.2, K38.8 . 02 CPT . 386690, 788799 Specimen Comment: A courtesy copy of this report has been sent to Specimen Comment: [phone], , , . Specimen Comment: Report sent to ,DR THOMSON,DR BOURNE / DR BAIRD Performed at: [address] [facility] [address], [place] [id number] MD Julian Colon MD Phone: [phone] Performed at: 02 [facility] [address] [place], [place] [id number] MD Mati Andrade MD Phone: [phone]
[2018-09-18 15:00] VITALS: BP 100/67
[2018-09-18] MEDS: ONDANSETRON ODT 4 MG TAB.RAPDIS. PO PRN (16:25)
[2018-09-18] MEDS: MORPHINE SULFATE 2 MG/ML VIAL. IV PRN ×2 (17:19→21:33)
[2018-09-18 19:30] VITALS: BP 114/55
[2018-09-18] MEDS: ATORVASTATIN CALCIUM 20 MG TABLET PO SCH (21:31)
[2018-09-18] MEDS: traZODone 50 MG TABLET. PO SCH (21:31)
[2018-09-18 22:30] VITALS: BP 147/69
[2018-09-19] MEDS: METOPROLOL SUCC 24HR ER 25 MG TAB.ER.24H. PO SCH ×4 (00:08→18:00)
--- NOTE | 2018-09-19 04:11 | NUR ---
Pt took his monitor off and when this RN entered his room he has also pulled his IV out and states "I am not wearing any of that." Pt is refusing a new IV or his cardiac library monitor.
[2018-09-19 04:25] VITALS: BP 106/65
[2018-09-19 06:24] LABS: BASO % 0 % (0-3); EOS # 0.1 x10^3/uL (0.0-0.7); EOS % 2 % (0-3); HEMATOCRIT 38.4 % (39.0-53.0); HEMOGLOBIN 12.8 g/dL (13.0-17.5); LYMPH # 0.4 x10^3/uL (1.0-4.8); LYMPH % 11 % (24-48); MEAN CORPUSCULAR HEMOGLOBIN 30 pg (25-35); MEAN CORPUSCULAR HGB CONC 33 g/dL (31-37); MEAN CORPUSCULAR VOLUME 90 fL (79-100); MONO # 0.7 x10^3/uL (0.0-1.1); MONO % 17 % (0-9); NEUT # 2.8 x10^3uL (1.8-7.7); NEUT % 71 % (31-73); PLATELET COUNT 105 x10^3/uL (140-400); RED BLOOD COUNT 4.27 x10^6/uL (4.30-5.70); RED CELL DISTRIBUTION WIDTH 14.7 % (11.5-14.5)
[2018-09-19 06:33] LABS: CALCIUM 8.5 mg/dL (8.5-10.1); CREATININE 0.9 mg/dL (0.7-1.3); GFR 82.3; POTASSIUM 4.4 mmol/L (3.5-5.1)
[2018-09-19 07:00] VITALS: BP 112/75
--- NOTE | 2018-09-19 08:55 | PDOC ---
[facility] [employer] 09/19/18 0855: SURGICAL PROGRESS NOTE Subjective still with nausea some belching, no emesis no flatus Vital Signs Vital Signs Date Time Temp Pulse Resp B/P (MAP) Pulse Ox O2 Delivery O2 Flow Rate FiO2 09/19/18 07:33 101 106/65 09/19/18 07:00 97.9 14 93 Room Air 97.9 I&O Intake and Output 09/19/18 06:59 Intake Total 1510 ml Output Total 425 ml Balance 1085 ml Intake Oral 560 ml IV Total 950 ml Output Urine Total 425 ml # Voids 3 General: Alert, Cooperative, No acute distress Abdomen: Soft, Other (incision c/d/i, no erythema, mild distention ) Labs Laboratory Tests Test 09/18/18 03:45 09/19/18 05:40 White Blood Count 5.2 x10^3/uL (4.0-11.0) 4.0 x10^3/uL (4.0-11.0) Red Blood Count 4.11 x10^6/uL (4.30-5.70) 4.27 x10^6/uL (4.30-5.70) Hemoglobin 12.3 g/dL (13.0-17.5) 12.8 g/dL (13.0-17.5) Hematocrit 36.9 % (39.0-53.0) 38.4 % (39.0-53.0) Mean Corpuscular Volume 90 fL (79-100) 90 fL (79-100) Mean Corpuscular Hemoglobin 30 pg (25-35) 30 pg (25-35) Mean Corpuscular Hemoglobin Concent 33 g/dL (31-37) 33 g/dL (31-37) Red Cell Distribution Width 14.3 % (11.5-14.5) 14.7 % (11.5-14.5) Platelet Count 98 x10^3/uL (140-400) 105 x10^3/uL (140-400) Neutrophils (%) (Auto) 76 % (31-73) 71 % (31-73) Lymphocytes (%) (Auto) 10 % (24-48) 11 % (24-48) Monocytes (%) (Auto) 12 % (0-9) 17 % (0-9) Eosinophils (%) (Auto) 2 % (0-3) 2 % (0-3) Basophils (%) (Auto) 0 % (0-3) 0 % (0-3) Neutrophils # (Auto) 3.9 x10^3uL (1.8-7.7) 2.8 x10^3uL (1.8-7.7) Lymphocytes # (Auto) 0.5 x10^3/uL (1.0-4.8) 0.4 x10^3/uL (1.0-4.8) Monocytes # (Auto) 0.6 x10^3/uL (0.0-1.1) 0.7 x10^3/uL (0.0-1.1) Eosinophils # (Auto) 0.1 x10^3/uL (0.0-0.7) 0.1 x10^3/uL (0.0-0.7) Basophils # (Auto) 0.0 x10^3/uL (0.0-0.2) 0.0 x10^3/uL (0.0-0.2) Sodium Level 130 mmol/L (136-145) 131 mmol/L (136-145) Potassium Level 4.4 mmol/L (3.5-5.1) 4.4 mmol/L (3.5-5.1) Chloride Level 97 mmol/L (98-107) 95 mmol/L (98-107) Carbon Dioxide Level 23 mmol/L (21-32) 25 mmol/L (21-32) Anion Gap 10 (6-14) 11 (6-14) Blood Urea Nitrogen 29 mg/dL (8-26) 26 mg/dL (8-26) Creatinine 0.9 mg/dL (0.7-1.3) 0.9 mg/dL (0.7-1.3) Estimated GFR (Cockcroft-Gault) 82.3 82.3 Glucose Level 117 mg/dL (70-99) 104 mg/dL (70-99) Calcium Level 8.6 mg/dL (8.5-10.1) 8.5 mg/dL (8.5-10.1) Laboratory Tests Test 09/19/18 05:40 White Blood Count 4.0 x10^3/uL (4.0-11.0) Red Blood Count 4.27 x10^6/uL (4.30-5.70) Hemoglobin 12.8 g/dL (13.0-17.5) Hematocrit 38.4 % (39.0-53.0) Mean Corpuscular Volume 90 fL (79-100) Mean Corpuscular Hemoglobin 30 pg (25-35) Mean Corpuscular Hemoglobin Concent 33 g/dL (31-37) Red Cell Distribution Width 14.7 % (11.5-14.5) Platelet Count 105 x10^3/uL (140-400) Neutrophils (%) (Auto) 71 % (31-73) Lymphocytes (%) (Auto) 11 % (24-48) Monocytes (%) (Auto) 17 % (0-9) Eosinophils (%) (Auto) 2 % (0-3) Basophils (%) (Auto) 0 % (0-3) Neutrophils # (Auto) 2.8 x10^3uL (1.8-7.7) Lymphocytes # (Auto) 0.4 x10^3/uL (1.0-4.8) Monocytes # (Auto) 0.7 x10^3/uL (0.0-1.1) Eosinophils # (Auto) 0.1 x10^3/uL (0.0-0.7) Basophils # (Auto) 0.0 x10^3/uL (0.0-0.2) Sodium Level 131 mmol/L (136-145) Potassium Level 4.4 mmol/L (3.5-5.1) Chloride Level 95 mmol/L (98-107) Carbon Dioxide Level 25 mmol/L (21-32) Anion Gap 11 (6-14) Blood Urea Nitrogen 26 mg/dL (8-26) Creatinine 0.9 mg/dL (0.7-1.3) Estimated GFR (Cockcroft-Gault) 82.3 Glucose Level 104 mg/dL (70-99) Calcium Level 8.5 mg/dL (8.5-10.1) Problem List Problems Medical Problems: (1) Hypokalemia Status: Acute Assessment/Plan slow return of bowel function, hold on advancing diet until some flatus caution with narcs-will contribute to slow bowel function, dc'd IV meds continue increasing activity ANDREA DUNCAN MD 09/19/18 1133: SURGICAL PROGRESS NOTE Assessment/Plan Pt comfortable, some nausea and pain with movement abd soft, incision c/d/i d/c narcotics try suppository [facility] [employer] September 19, 2018 08:55 ANDREA DUNCAN MD September 19, 2018 11:33
[2018-09-19] MEDS: ONDANSETRON ODT 4 MG TAB.RAPDIS. PO PRN ×2 (09:07→15:59)
[2018-09-19] MEDS: ASPIRIN ENTERIC COATED 81 MG TABLET.DR. PO SCH (09:08)
[2018-09-19] MEDS: HYDROcodone/APAP 5/325MG 1 TAB TABLET PO PRN ×2 (09:09→20:42)
[2018-09-19] MEDS: PANTOPRAZOLE 40 MG TABLET.DR. PO SCH (09:10)
[2018-09-19] MEDS: ENOXAPARIN 40 MG/0.4 ML SYRINGE. SQ SCH (09:10)
[2018-09-19 11:00] VITALS: BP 96/60
--- NOTE | 2018-09-19 11:13 | PDOC ---
Objective: Objective: Reviewed w/ RN - agitated (?and confused) this morning, ate some crackers. Reviewed surg note - holding on advancing diet w/ slow return of bowel function. Vital Signs: Vital Signs Date Time Temp Pulse Resp B/P (MAP) Pulse Ox O2 Delivery O2 Flow Rate FiO2 09/19/18 10:24 14 Room Air 09/19/18 09:09 93 09/19/18 07:33 101 106/65 09/19/18 07:00 97.9 97.9 Labs: Laboratory Tests Test 09/19/18 05:40 White Blood Count 4.0 x10^3/uL Red Blood Count 4.27 x10^6/uL Hemoglobin 12.8 g/dL Hematocrit 38.4 % Mean Corpuscular Volume 90 fL Mean Corpuscular Hemoglobin 30 pg Mean Corpuscular Hemoglobin Concent 33 g/dL Red Cell Distribution Width 14.7 % Platelet Count 105 x10^3/uL Neutrophils (%) (Auto) 71 % Lymphocytes (%) (Auto) 11 % Monocytes (%) (Auto) 17 % Eosinophils (%) (Auto) 2 % Basophils (%) (Auto) 0 % Neutrophils # (Auto) 2.8 x10^3uL Lymphocytes # (Auto) 0.4 x10^3/uL Monocytes # (Auto) 0.7 x10^3/uL Eosinophils # (Auto) 0.1 x10^3/uL Basophils # (Auto) 0.0 x10^3/uL Sodium Level 131 mmol/L Potassium Level 4.4 mmol/L Chloride Level 95 mmol/L Carbon Dioxide Level 25 mmol/L Anion Gap 11 Blood Urea Nitrogen 26 mg/dL Creatinine 0.9 mg/dL Estimated GFR (Cockcroft-Gault) 82.3 Glucose Level 104 mg/dL Calcium Level 8.5 mg/dL Diagnosis: A. 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 - Recent hemorrhage of mesocolon. . B. Segment of small bowel, additional small bowel segmental resection: - Recent hemorrhage of mesentery. PE: GEN: NAD - up to chair asleep holding phone A/P: Chilaiditi's syndrome s/p right hemicolectomy -- Follow surgical recs. JORDON RODARTE September 19, 2018 11:13
[2018-09-19] MEDS ORDERED: BISACODYL 10 MG SUPP.RECT. PR PRN (11:45)
[2018-09-19] MEDS: AMINO AC 3%/ELECTROLYTE/GLYCER 1,000 ML IV SCH (11:45)
--- NOTE | 2018-09-19 14:51 | PDOC ---
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 day 6 Denies having BM or flatus IV morphine discontinued Discussed with nurse Vitals Vitals Vital Signs Date Time Temp Pulse Resp B/P (MAP) Pulse Ox O2 Delivery O2 Flow Rate FiO2 09/19/18 12:00 72 96/60 09/19/18 11:00 97.5 18 95 Room Air 97.5 Physical Exam General: Alert, Cooperative, No acute distress Heart: Regular rate, Normal S1, Normal S2, Other (2/6 systolic murmur, intermittant SVT) Lungs: Clear Abdomen: Soft, Other (incision c/d/i, no erythema, mild distention ) Extremities: No clubbing, No cyanosis Skin: No rashes, No breakdown Labs LABS Laboratory Tests Test 09/19/18 05:40 White Blood Count 4.0 x10^3/uL (4.0-11.0) Red Blood Count 4.27 x10^6/uL (4.30-5.70) Hemoglobin 12.8 g/dL (13.0-17.5) Hematocrit 38.4 % (39.0-53.0) Mean Corpuscular Volume 90 fL (79-100) Mean Corpuscular Hemoglobin 30 pg (25-35) Mean Corpuscular Hemoglobin Concent 33 g/dL (31-37) Red Cell Distribution Width 14.7 % (11.5-14.5) Platelet Count 105 x10^3/uL (140-400) Neutrophils (%) (Auto) 71 % (31-73) Lymphocytes (%) (Auto) 11 % (24-48) Monocytes (%) (Auto) 17 % (0-9) Eosinophils (%) (Auto) 2 % (0-3) Basophils (%) (Auto) 0 % (0-3) Neutrophils # (Auto) 2.8 x10^3uL (1.8-7.7) Lymphocytes # (Auto) 0.4 x10^3/uL (1.0-4.8) Monocytes # (Auto) 0.7 x10^3/uL (0.0-1.1) Eosinophils # (Auto) 0.1 x10^3/uL (0.0-0.7) Basophils # (Auto) 0.0 x10^3/uL (0.0-0.2) Sodium Level 131 mmol/L (136-145) Potassium Level 4.4 mmol/L (3.5-5.1) Chloride Level 95 mmol/L (98-107) Carbon Dioxide Level 25 mmol/L (21-32) Anion Gap 11 (6-14) Blood Urea Nitrogen 26 mg/dL (8-26) Creatinine 0.9 mg/dL (0.7-1.3) Estimated GFR (Cockcroft-Gault) 82.3 Glucose Level 104 mg/dL (70-99) Calcium Level 8.5 mg/dL (8.5-10.1) Review of Systems Review of Systems Patient denies TAO Patient denies swelling in extremities Assessment and Plan Assessmemt and Plan Problems Medical Problems: (1) Hypokalemia Status: Acute Assessment: 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 Labs Laboratory Tests Test 09/18/18 03:45 09/19/18 05:40 White Blood Count 5.2 x10^3/uL (4.0-11.0) 4.0 x10^3/uL (4.0-11.0) Red Blood Count 4.11 x10^6/uL (4.30-5.70) 4.27 x10^6/uL (4.30-5.70) Hemoglobin 12.3 g/dL (13.0-17.5) 12.8 g/dL (13.0-17.5) Hematocrit 36.9 % (39.0-53.0) 38.4 % (39.0-53.0) Mean Corpuscular Volume 90 fL (79-100) 90 fL (79-100) Mean Corpuscular Hemoglobin 30 pg (25-35) 30 pg (25-35) Mean Corpuscular Hemoglobin Concent 33 g/dL (31-37) 33 g/dL (31-37) Red Cell Distribution Width 14.3 % (11.5-14.5) 14.7 % (11.5-14.5) Platelet Count 98 x10^3/uL (140-400) 105 x10^3/uL (140-400) Neutrophils (%) (Auto) 76 % (31-73) 71 % (31-73) Lymphocytes (%) (Auto) 10 % (24-48) 11 % (24-48) Monocytes (%) (Auto) 12 % (0-9) 17 % (0-9) Eosinophils (%) (Auto) 2 % (0-3) 2 % (0-3) Basophils (%) (Auto) 0 % (0-3) 0 % (0-3) Neutrophils # (Auto) 3.9 x10^3uL (1.8-7.7) 2.8 x10^3uL (1.8-7.7) Lymphocytes # (Auto) 0.5 x10^3/uL (1.0-4.8) 0.4 x10^3/uL (1.0-4.8) Monocytes # (Auto) 0.6 x10^3/uL (0.0-1.1) 0.7 x10^3/uL (0.0-1.1) Eosinophils # (Auto) 0.1 x10^3/uL (0.0-0.7) 0.1 x10^3/uL (0.0-0.7) Basophils # (Auto) 0.0 x10^3/uL (0.0-0.2) 0.0 x10^3/uL (0.0-0.2) Sodium Level 130 mmol/L (136-145) 131 mmol/L (136-145) Potassium Level 4.4 mmol/L (3.5-5.1) 4.4 mmol/L (3.5-5.1) Chloride Level 97 mmol/L (98-107) 95 mmol/L (98-107) Carbon Dioxide Level 23 mmol/L (21-32) 25 mmol/L (21-32) Anion Gap 10 (6-14) 11 (6-14) Blood Urea Nitrogen 29 mg/dL (8-26) 26 mg/dL (8-26) Creatinine 0.9 mg/dL (0.7-1.3) 0.9 mg/dL (0.7-1.3) Estimated GFR (Cockcroft-Gault) 82.3 82.3 Glucose Level 117 mg/dL (70-99) 104 mg/dL (70-99) Calcium Level 8.6 mg/dL (8.5-10.1) 8.5 mg/dL (8.5-10.1) Laboratory Tests Test 09/19/18 05:40 White Blood Count 4.0 x10^3/uL (4.0-11.0) Red Blood Count 4.27 x10^6/uL (4.30-5.70) Hemoglobin 12.8 g/dL (13.0-17.5) Hematocrit 38.4 % (39.0-53.0) Mean Corpuscular Volume 90 fL (79-100) Mean Corpuscular Hemoglobin 30 pg (25-35) Mean Corpuscular Hemoglobin Concent 33 g/dL (31-37) Red Cell Distribution Width 14.7 % (11.5-14.5) Platelet Count 105 x10^3/uL (140-400) Neutrophils (%) (Auto) 71 % (31-73) Lymphocytes (%) (Auto) 11 % (24-48) Monocytes (%) (Auto) 17 % (0-9) Eosinophils (%) (Auto) 2 % (0-3) Basophils (%) (Auto) 0 % (0-3) Neutrophils # (Auto) 2.8 x10^3uL (1.8-7.7) Lymphocytes # (Auto) 0.4 x10^3/uL (1.0-4.8) Monocytes # (Auto) 0.7 x10^3/uL (0.0-1.1) Eosinophils # (Auto) 0.1 x10^3/uL (0.0-0.7) Basophils # (Auto) 0.0 x10^3/uL (0.0-0.2) Sodium Level 131 mmol/L (136-145) Potassium Level 4.4 mmol/L (3.5-5.1) Chloride Level 95 mmol/L (98-107) Carbon Dioxide Level 25 mmol/L (21-32) Anion Gap 11 (6-14) Blood Urea Nitrogen 26 mg/dL (8-26) Creatinine 0.9 mg/dL (0.7-1.3) Estimated GFR (Cockcroft-Gault) 82.3 Glucose Level 104 mg/dL (70-99) Calcium Level 8.5 mg/dL (8.5-10.1) Medications Current Medications Adenosine (Adenocard) 6 mg STK-MED ONCE IV ; Start 09/11/18 at 10:13; Stop 09/11/18 at 10:14; Status DC Adenosine (Adenocard) 12 mg 1X ONCE IV ; Start 09/11/18 at 10:15; Stop 09/11/18 at 10:17; Status DC Sodium Chloride 1,000 ml @ 1,000 mls/hr Q1H IV Last administered on 09/11/18at 10:42; Start 09/11/18 at 10:13; Stop 09/11/18 at 11:12; Status DC Adenosine (Adenocard) 6 mg 1X ONCE IV ; Start 09/11/18 at 10:15; Stop 09/11/18 at 10:17; Status DC Ondansetron HCl (Zofran) 4 mg 1X ONCE IV Last administered on 09/11/18at 10:46; Start 09/11/18 at 10:45; Stop 09/11/18 at 10:46; Status DC Potassium Chloride (Klor-Con) 40 meq 1X ONCE PO Last administered on 09/11/18at 13:01; Start 09/11/18 at 11:15; Stop 09/11/18 at 11:16; Status DC Aspirin (Ecotrin) 81 mg DAILY PO Last administered on 09/19/18at 09:08; Start 09/11/18 at 13:00 Metoprolol Succinate (Toprol Xl) 25 mg HS PO ; Start 09/11/18 at 21:00; Stop 09/11/18 at 21:00; Status DC Ondansetron HCl (Zofran Odt) 4 mg PRN Q6HRS PRN PO NAUSEA/VOMITING Last administered on 09/19/18at 09:07; Start 09/11/18 at 13:00 Pantoprazole Sodium (Protonix) 40 mg DAILYAC PO Last administered on 09/13/18 09:36; Start 09/11/18 at 13:00; Stop 09/14/18 at 11:54; Status DC Simvastatin (Zocor) 40 mg QHS PO Last administered on 09/11/18 20:46; Start 09/11/18 at 21:00; Stop 09/12/18 at 15:50; Status DC Ondansetron HCl (Zofran) 4 mg STK-MED ONCE .ROUTE ; Start 09/11/18 at 10:46; Stop 09/11/18 at 12:12; Status DC Sodium Chloride 1,000 ml @ 100 mls/hr 1X ONCE IV Last administered on 09/11/18 13:04; Start 09/11/18 at 12:45; Stop 09/11/18 at 22:44; Status DC Iohexol (Omnipaque 240 Mg/ml) 50 ml 1X ONCE PO Last administered on 09/11/18at 14:40; Start 09/11/18 at 13:15; Stop 09/11/18 at 13:23; Status DC Iohexol (Omnipaque 300 Mg/ml) 75 ml 1X ONCE IV Last administered on 09/11/18at 14:40; Start 09/11/18 at 13:15; Stop 09/11/18 at 13:23; Status DC Info (CONTRAST GIVEN -- Rx MONITORING) 1 each PRN DAILY PRN MC SEE COMMENTS; Start 09/11/18 at 13:30; Stop 09/13/18 at 13:29; Status DC Ondansetron HCl (Zofran) 4 mg PRN Q6HRS PRN IV NAUSEA/VOMITING 1ST CHOICE Last administered on 09/17/18 08:30; Start 09/11/18 at 15:00 Prochlorperazine Edisylate (Compazine) 10 mg PRN Q6HRS PRN IV NAUSEA/VOMITING 2ND CHOICE Last administered on 09/17/18 09:48; Start 09/11/18 at 15:00; Stop 09/18/18 at 16:57; Status DC Metoprolol Succinate (Toprol Xl) 50 mg HS PO Last administered on 09/12/18at 20:30; Start 09/11/18 at 21:00; Stop 09/14/18 at 14:39; Status DC Morphine Sulfate (Morphine Sulfate) 2 mg PRN Q4HRS PRN IV MODERATE-SEVERE PAIN Last administered on 09/18/18 21:33; Start 09/11/18 at 17:45; Stop 09/19/18 at 08:56; Status DC Acetaminophen/ Hydrocodone Bitart (Lortab 5/325) 1 tab PRN Q6HRS PRN PO PAIN Last administered on 09/19/18 09:09; Start 09/11/18 at 17:45 Tamsulosin HCl (Flomax) 0.4 mg DAILY PO ; Start 09/12/18 at 10:00; Stop 09/12/18 at 10:37; Status DC Polyethylene Glycol (miraLAX PACKET) 17 gm PRN DAILY PRN PO CONSTIPATION Last administered on 09/18/18 09:13; Start 09/12/18 at 09:15 Ketorolac Tromethamine (Toradol 30mg Vial) 30 mg PRN Q6HRS PRN IV MILD PAIN Last administered on 09/17/18 09:49; Start 09/12/18 at 10:15; Stop 09/17/18 at 10:14; Status DC Meclizine HCl (Antivert) 12.5 mg PRN Q6HRS PRN PO DIZZINESS Last administered on 09/17/18 08:30; Start 09/12/18 at 11:15 Sodium Monofluorophosphate (Fleet Adult) 133 ml 1X ONCE IA Last administered on 09/12/18 16:13; Start 09/12/18 at 14:45; Stop 09/12/18 at 14:46; Status DC Magnesium Citrate (Citroma) 296 ml 1X ONCE PO Last administered on 09/12/18 16:12; Start 09/12/18 at 16:00; Stop 09/12/18 at 16:01; Status DC Erythromycin (E-Mycin) 500 mg TID PO Last administered on 09/13/18 09:39; Start 09/12/18 at 15:00; Stop 09/14/18 at 11:39; Status DC Neomycin Sulfate (Neomycin Sulfate) 500 mg TID PO Last administered on 09/13/18 09:39; Start 09/12/18 at 16:00; Stop 09/14/18 at 11:39; Status DC Cefoxitin Sodium (Mefoxin) 2 gm 1X PERIOP ONCE IVP Last administered on 09/13/18at 12:40; Start 09/13/18 at 12:00; Stop 09/13/18 at 12:01; Status DC Atorvastatin Calcium (Lipitor) 20 mg QHS PO Last administered on 09/18/18at 21:31; Start 09/12/18 at 21:00 Ondansetron HCl (Zofran) 4 mg PRN Q6HRS PRN IV NAUSEA/VOMITING; Start 09/13/18 at 07:00; Stop 09/14/18 at 06:59; Status DC Fentanyl Citrate (Fentanyl 2ml Vial) 25 mcg PRN Q5MIN PRN IV MILD PAIN; Start 09/13/18 at 07:00; Stop 09/14/18 at 06:59; Status DC Fentanyl Citrate (Fentanyl 2ml Vial) 50 mcg PRN Q5MIN PRN IV MODERATE TO SEVERE PAIN; Start 09/13/18 at 07:00; Stop 09/14/18 at 06:59; Status DC Morphine Sulfate (Morphine Sulfate) 1 mg PRN Q10MIN PRN IV SEVERE PAIN; Start 09/13/18 at 07:00; Stop 09/14/18 at 06:59; Status DC Ringer's Solution 1,000 ml @ 30 mls/hr Q24H IV Last administered on 09/13/18at 06:32; Start 09/13/18 at 07:00; Stop 09/13/18 at 16:44; Status DC Lidocaine HCl (Xylocaine-Mpf 1% 2ml Vial) 2 ml PRN 1X PRN ID PRIOR TO IV START; Start 09/13/18 at 07:00; Stop 09/14/18 at 06:59; Status DC Hydromorphone HCl (Dilaudid) 0.5 mg PRN Q10MIN PRN IV SEV PAIN, Second choice; Start 09/13/18 at 07:00; Stop 09/14/18 at 06:59; Status DC Prochlorperazine Edisylate (Compazine) 5 mg PACU PRN PRN IV NAUSEA, MRX1; Start 09/13/18 at 07:00; Stop 09/14/18 at 06:59; Status DC Lorazepam (Ativan) 0.5 mg PRN Q6HRS PRN IV ANXIETY / AGITATION Last administered on 09/19/18at 00:08; Start 09/12/18 at 19:45 Bupivacaine HCl/ Epinephrine Bitart (Sensorcain-Mpf Epi 0.5%-1:[id number]) 30 ml STK-MED ONCE .ROUTE Last administered on 09/13/18at 13:10; Start 09/13/18 at 10:55; Stop 09/13/18 at 11:55; Status DC Rocuronium Hamilton (Zemuron) 50 mg STK-MED ONCE .ROUTE ; Start 09/13/18 at 12:09; Stop 09/13/18 at 12:10; Status DC Midazolam HCl (Versed) 2 mg STK-MED ONCE .ROUTE ; Start 09/13/18 at 12:09; Stop 09/13/18 at 12:10; Status DC Fentanyl Citrate (Fentanyl 5ml Vial) 250 mcg STK-MED ONCE .ROUTE ; Start 09/13/18 at 12:09; Stop 09/13/18 at 12:10; Status DC Propofol 20 ml @ As Directed STK-MED ONCE IV ; Start 09/13/18 at 12:11; Stop 09/13/18 at 12:12; Status DC Lidocaine HCl (Lidocaine Pf 2% Vial) 5 ml STK-MED ONCE .ROUTE ; Start 09/13/18 at 12:11; Stop 09/13/18 at 12:12; Status DC Ondansetron HCl (Zofran) 4 mg STK-MED ONCE .ROUTE ; Start 09/13/18 at 12:11; Stop 09/13/18 at 12:12; Status DC Dexamethasone Sodium Phosphate (Decadron) 4 mg STK-MED ONCE .ROUTE ; Start 09/13/18 at 12:11; Stop 09/13/18 at 12:12; Status DC Cefoxitin Sodium (Mefoxin) 2 gm 1X ONCE IVP Last administered on 09/13/18at 14:40; Start 09/13/18 at 12:15; Stop 09/13/18 at 12:16; Status DC Ephedrine Sulfate (ePHEDrine PF IN SALINE SYRINGE) 50 mg STK-MED ONCE IV ; Start 09/13/18 at 12:51; Stop 09/13/18 at 12:52; Status DC Phenylephrine HCl (PHENYLEPHRINE in 0.9% NACL PF) 1 mg STK-MED ONCE IV ; Start 09/13/18 at 12:51; Stop 09/13/18 at 12:52; Status DC Rocuronium Hamilton (Zemuron) 50 mg STK-MED ONCE .ROUTE ; Start 09/13/18 at 13:36; Stop 09/13/18 at 13:37; Status DC Fentanyl Citrate (Fentanyl 5ml Vial) 250 mcg STK-MED ONCE .ROUTE ; Start 09/13/18 at 13:51; Stop 09/13/18 at 13:52; Status DC Neostigmine Methylsulfate (Neostigmine Methylsulfate) 5 mg STK-MED ONCE .ROUTE ; Start 09/13/18 at 13:57; Stop 09/13/18 at 13:58; Status DC Glycopyrrolate (Robinul) 1 mg STK-MED ONCE .ROUTE ; Start 09/13/18 at 13:57; Stop 09/13/18 at 13:58; Status DC Esmolol HCl (Brevibloc) 100 mg STK-MED ONCE IVP ; Start 09/13/18 at 14:00; Stop 09/13/18 at 14:01; Status DC Sevoflurane (Ultane) 90 ml STK-MED ONCE IH ; Start 09/13/18 at 14:19; Stop 09/13/18 at 14:20; Status DC Enoxaparin Sodium (Lovenox 40mg Syringe) 40 mg Q24H SQ ; Start 09/13/18 at 16:00; Status Cancel Sodium Chloride (Normal Saline Flush) 3 ml QSHIFT PRN IV AFTER MEDS AND BLOOD DRAWS; Start 09/13/18 at 15:15 Ringer's Solution 1,000 ml @ 100 mls/hr Q10H IV Last administered on 09/14/18at 01:04; Start 09/13/18 at 15:04; Stop 09/14/18 at 11:39; Status DC Naloxone HCl (Narcan) 0.4 mg PRN Q2MIN PRN IV SEE INSTRUCTIONS; Start 09/13/18 at 15:15 Sodium Chloride 1,000 ml @ 25 mls/hr Q24H IV ; Start 09/13/18 at 15:04; Stop 09/16/18 at 10:36; Status DC Morphine Sulfate 30 ml @ 0 mls/hr CONT PRN PRN IV PER PROTOCOL; Start 09/13/18 at 15:15; Stop 09/19/18 at 08:56; Status DC Lidocaine HCl (Lidocaine HCl 2% Abboject) 100 mg STK-MED ONCE .ROUTE ; Start 09/13/18 at 15:35; Stop 09/13/18 at 15:36; Status DC Lidocaine HCl (Lidocaine HCl 2% Abboject) 100 mg 1X ONCE IV Last administered on 09/13/18at 15:45; Start 09/13/18 at 15:45; Stop 09/13/18 at 15:46; Status DC Enoxaparin Sodium (Lovenox 40mg Syringe) 40 mg Q24H SQ Last administered on 09/19/18at 09:10; Start 09/14/18 at 09:00 Metoprolol Tartrate (Lopressor Vial) 5 mg Q8HRS IVP Last administered on 09/15/18at 05:48; Start 09/14/18 at 06:00; Stop 09/15/18 at 10:30; Status DC Metoprolol Tartrate (Lopressor Vial) 5 mg 1X ONCE IVP Last administered on 09/13/18at 18:42; Start 09/13/18 at 18:45; Stop 09/13/18 at 18:46; Status DC Amino Acids/ Glycerin/ Electrolytes 1,000 ml @ 75 mls/hr [id number] IV Last administered on 09/18/18at 17:19; Start 09/14/18 at 11:45 Pantoprazole Sodium (PROTONIX VIAL for IV PUSH) 40 mg DAILYAC IVP Last administered on 09/16/18at 08:38; Start 09/15/18 at 07:30; Stop 09/16/18 at 10:36; Status DC Pantoprazole Sodium (PROTONIX VIAL for IV PUSH) 40 mg 1X ONCE IVP Last adminis tered on 09/14/18at 12:04; Start 09/14/18 at 12:00; Stop 09/14/18 at 12:01; Status DC Metoprolol Tartrate (Lopressor Vial) 5 mg PRN Q4HRS PRN IVP TACHYCARDIA Last administered on 09/17/18at 08:34; Start 09/15/18 at 10:30 Metoprolol Succinate (Toprol Xl) 25 mg BID PO Last administered on 09/15/18 20:30; Start 09/15/18 at 12:00; Stop 09/16/18 at 10:48; Status DC Pantoprazole Sodium (Protonix) 40 mg DAILYAC PO Last administered on 09/19/18 09:10; Start 09/17/18 at 07:30 Metoprolol Succinate (Toprol Xl) 25 mg Q6HRS PO Last administered on 09/19/18 07:33; Start 09/16/18 at 12:00 Prochlorperazine Edisylate (Compazine) 10 mg PRN Q8HRS PRN IV NAUSEA/VOMITING 2ND CHOICE Last administered on 09/18/18 17:18; Start 09/16/18 at 15:15 Trazodone HCl (Desyrel) 50 mg QHS PO Last administered on 09/18/18 21:31; Start 09/17/18 at 21:00 Bisacodyl (Dulcolax Supp) 10 mg PRN DAILY PRN IA CONSTIPATION; Start 09/19/18 at 11:45 Active Scripts Active Ondansetron Odt (Ondansetron) 4 Mg Tab.rapdis 1 Tab PO PRN Q6-8HRS Protonix (Pantoprazole Sodium) 40 Mg Tablet.dr 1 Tab PO DAILY Reported Zocor (Simvastatin) 40 Mg Tablet 40 Mg PO HS Toprol Xl (Metoprolol Succinate) 25 Mg Tab.er.24h 25 Mg PO HS Aspir 81 (Aspirin) 81 Mg Tablet.dr 81 Mg PO DAILY Vitals/I & O Vital Sign - Last 24 Hours 09/18/18 09/18/18 09/18/18 09/18/18 15:00 17:19 17:19 19:30 Temp 97.7 98.0 97.7 98.0 Pulse 84 86 91 Resp 20 20 B/P (MAP) 100/67 (78) 100/67 114/55 (74) Pulse Ox 92 93 O2 Delivery Room Air Room Air Room Air 09/18/18 09/18/18 09/18/18 09/18/18 20:00 21:33 21:34 22:05 Resp 18 18 18 Pulse Ox 93 93 94 O2 Delivery Room Air Room Air Room Air Room Air 09/18/18 09/18/18 09/19/18 09/19/18 22:30 22:40 00:08 03:00 Temp 98.1 98.1 Pulse 86 86 84 Resp 20 B/P (MAP) 147/69 (95) 147/69 Pulse Ox 94 94 O2 Delivery Room Air 09/19/18 09/19/18 09/19/18 09/19/18 04:25 07:00 07:33 08:00 Temp 97.7 97.9 97.7 97.9 Pulse 101 87 101 Resp 18 14 B/P (MAP) 106/65 (79) 112/75 (87) 106/65 Pulse Ox 98 93 O2 Delivery Room Air Room Air Room Air 09/19/18 09/19/18 09/19/18 09/19/18 09:09 10:24 11:00 12:00 Temp 97.5 97.5 Pulse 72 72 Resp 14 18 B/P (MAP) 96/60 (72) 96/60 Pulse Ox 93 95 O2 Delivery Room Air Room Air Room Air Intake and Output 09/18/18 09/18/18 09/19/18 15:00 23:00 07:00 Intake Total 240 ml 950 ml 320 ml Output Total 125 ml 300 ml Balance 115 ml 650 ml 320 ml LLOYDNIAL K III DO September 19, 2018 14:51
--- NOTE | 2018-09-19 14:55 | SNU/HH DC ---
DISCHARGE ORDERS DISCHARGE INFORMATION: FINAL DIAGNOSIS Problems Medical Problems: (1) Hypokalemia Status: Acute CONDITION ON DISCHARGE: Stable CODE STATUS: Code Status: Full GROUP HOME: SNF STAY <30 DAYS: Yes HOSPICE: HOSPICE: No HOSPICE EVAL & TREAT: No LTAC: ADMIT TO LTAC: No POST DISCHARGE ORDERS: ACTIVITY ORDERS: Activity as tolerated WEIGHT BEARING STATUS: No restrictions DIET AFTER DISCHARGE: clear liquids WOUND/INCISION CARE: May get incision wet, Other, see below CHECKS AFTER DISCHARGE: CHECKS AFTER DISCHARGE: Check blood press - daily TREATMENT/EQUIPMENT ORDERS: ADAPTIVE EQUIPMENT NEEDED: None Physical Therapy For: Evalulation/Treatment Occupational Therapy For: Evaluation/Treatment DISCHARGE MEDICATIONS: Home Meds Active Scripts Ondansetron (ONDANSETRON ODT) 4 Mg Tab.rapdis, 1 TAB PO PRN Q6-8HRS for VOMITING, #16 TAB Prov:ROSA MONTELONGO DO 08/09/18 Pantoprazole Sodium (PROTONIX) 40 Mg Tablet., 1 TAB PO DAILY, #30 TAB 5 Refills Prov:NEW THOMSON MD 10/20/16 Reported Medications Simvastatin (ZOCOR) 40 Mg Tablet, 40 MG PO HS for FOR CHOLESTEROL, #30 TAB 0 Refills 03/05/14 Metoprolol Succinate (TOPROL XL) 25 Mg Tab.er.24h, 25 MG PO HS for FOR HYPERT ENSION, #30 TAB 0 Refills 03/05/14 Aspirin (ASPIR 81) 81 Mg Tablet., 81 MG PO DAILY, TAB 03/05/14 TITO DESAI III DO September 19, 2018 14:55
--- NOTE | 2018-09-19 14:58 | PDOC3 ---
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 Antonio took the patient for exploratory laparotomy and resected some bowel Postoperatively he has had a slow recovery but he is now tolerating clear liquids I examined patient this morning His heart tones were normal his lungs were clear his abdomen was soft the dressings are clean dry and intact the wound is healing well Plan to discharge to skilled Disposition: Disposition/Orders: D/C to Another Facility Activity: Activity: Resume previous activity Diet: Diet: Clear Liquids Medications: Home Meds Active Scripts Ondansetron (ONDANSETRON ODT) 4 Mg Tab.rapdis, 1 TAB PO PRN Q6-8HRS for VOMITING, #16 TAB Prov:ROSA MONTELONGO DO 08/09/18 Pantoprazole Sodium (PROTONIX) 40 Mg Tablet., 1 TAB PO DAILY, #30 TAB 5 Refills Prov:NEW THOMSON MD 10/20/16 Reported Medications Simvastatin (ZOCOR) 40 Mg Tablet, 40 MG PO HS for FOR CHOLESTEROL, #30 TAB 0 Refills 03/05/14 Metoprolol Succinate (TOPROL XL) 25 Mg Tab.er.24h, 25 MG PO HS for FOR HYPERTENSION, #30 TAB 0 Refills 03/05/14 Aspirin (ASPIR 81) 81 Mg Tablet., 81 MG PO DAILY, TAB 03/05/14 Scheduled Aspirin (Aspir 81), 81 MG PO DAILY, (Reported) Metoprolol Succinate (Toprol Xl), 25 MG PO HS, (Reported) Ondansetron (Ondansetron Odt), 1 TAB PO PRN Q6-8HRS Pantoprazole Sodium (Protonix), 1 TAB PO DAILY Simvastatin (Zocor), 40 MG PO HS, (Reported) Total Time: Total Time: 32 minutes TITO DESAI III DO September 19, 2018 14:58
[2018-09-19 19:35] VITALS: BP 108/57
[2018-09-19] MEDS ORDERED: PROCHLORPERAZINE 10 MG/2 ML VIAL. IV PRN (20:30)
[2018-09-19] MEDS ORDERED: ONDANSETRON PF 4 MG/2 ML VIAL. IV PRN (20:30)
[2018-09-19] MEDS: PROMETHAZINE 12.5 MG TABLET. PO PRN (20:40)
[2018-09-19] MEDS: traZODone 50 MG TABLET. PO SCH (20:42)
[2018-09-19] MEDS: ATORVASTATIN CALCIUM 20 MG TABLET PO SCH (20:42)
[2018-09-19] MEDS ORDERED: LORazepam 1 MG TABLET PO PRN (20:45)
[2018-09-20] VITALS (16 sets, daily range): BP systolic 83–125; BP diastolic 47–74
[2018-09-20] MEDS: ONDANSETRON ODT 4 MG TAB.RAPDIS. PO PRN (00:35)
[2018-09-20] MEDS: METOPROLOL SUCC 24HR ER 25 MG TAB.ER.24H. PO SCH ×6 (00:41→18:15)
[2018-09-20] MEDS: AMINO AC 3%/ELECTROLYTE/GLYCER 1,000 ML IV SCH ×2 (01:05→14:25)
--- NOTE | 2018-09-20 04:28 | NUR ---
Around 0 patient passed gas, no bowel movement at this time. Allowed Tele monitor to be applied.
[2018-09-20 06:17] LABS: BASO % 0 % (0-3); EOS % 0 % (0-3); HEMATOCRIT 38.5 % (39.0-53.0); HEMOGLOBIN 13.2 g/dL (13.0-17.5); LYMPH # 0.4 x10^3/uL (1.0-4.8); LYMPH % 8 % (24-48); MEAN CORPUSCULAR HEMOGLOBIN 31 pg (25-35); MEAN CORPUSCULAR HGB CONC 34 g/dL (31-37); MEAN CORPUSCULAR VOLUME 89 fL (79-100); MONO # 0.7 x10^3/uL (0.0-1.1); MONO % 15 % (0-9); NEUT # 3.6 x10^3uL (1.8-7.7); NEUT % 77 % (31-73); PLATELET COUNT 123 x10^3/uL (140-400); RED BLOOD COUNT 4.33 x10^6/uL (4.30-5.70); RED CELL DISTRIBUTION WIDTH 14.8 % (11.5-14.5); WHITE BLOOD COUNT 4.7 x10^3/uL (4.0-11.0)
[2018-09-20 06:38] LABS: CALCIUM 8.9 mg/dL (8.5-10.1); GFR 72.8; POTASSIUM 4.4 mmol/L (3.5-5.1)
[2018-09-20] MEDS: METOPROLOL TARTRATE 5 MG/5 ML VIAL. IVP PRN (06:44)
--- NOTE | 2018-09-20 07:19 | NUR ---
Around 0630 patient went into SVT. Patient had previously refused the 0000 and 0600 dose of metoprolol. administered the 0600 dose of metoprolol and gave 5mg of IVP metoprolol. Patient BP responded well, patient returned to Sinus Tach with PVC's.
[2018-09-20] MEDS ORDERED: DIGOXIN IV 500 MCG/2 ML AMPUL. IV ONE (08:30)
--- NOTE | 2018-09-20 08:41 | PDOC ---
SURGICAL PROGRESS NOTE Subjective Pt with episode of SVT last night, now resolved with meds, hungry, RLQ abd pain, now passing flatus, no further nausea Vital Signs Vital Signs Date Time Temp Pulse Resp B/P (MAP) Pulse Ox O2 Delivery O2 Flow Rate FiO2 09/20/18 07:00 98.4 128 12 83/56 (65) Room Air 94.0 98.4 09/20/18 03:35 93 I&O Intake and Output 09/20/18 07:00 Intake Total 300 ml Balance 300 ml Intake Oral 300 ml # Voids 1 General: Alert, Oriented X3, Cooperative, No acute distress Abdomen: Soft, Other (incisional TTP) Labs Laboratory Tests Test 09/19/18 05:40 09/20/18 04:55 White Blood Count 4.0 x10^3/uL (4.0-11.0) 4.7 x10^3/uL (4.0-11.0) Red Blood Count 4.27 x10^6/uL (4.30-5.70) 4.33 x10^6/uL (4.30-5.70) Hemoglobin 12.8 g/dL (13.0-17.5) 13.2 g/dL (13.0-17.5) Hematocrit 38.4 % (39.0-53.0) 38.5 % (39.0-53.0) Mean Corpuscular Volume 90 fL (79-100) 89 fL (79-100) Mean Corpuscular Hemoglobin 30 pg (25-35) 31 pg (25-35) Mean Corpuscular Hemoglobin Concent 33 g/dL (31-37) 34 g/dL (31-37) Red Cell Distribution Width 14.7 % (11.5-14.5) 14.8 % (11.5-14.5) Platelet Count 105 x10^3/uL (140-400) 123 x10^3/uL (140-400) Neutrophils (%) (Auto) 71 % (31-73) 77 % (31-73) Lymphocytes (%) (Auto) 11 % (24-48) 8 % (24-48) Monocytes (%) (Auto) 17 % (0-9) 15 % (0-9) Eosinophils (%) (Auto) 2 % (0-3) 0 % (0-3) Basophils (%) (Auto) 0 % (0-3) 0 % (0-3) Neutrophils # (Auto) 2.8 x10^3uL (1.8-7.7) 3.6 x10^3uL (1.8-7.7) Lymphocytes # (Auto) 0.4 x10^3/uL (1.0-4.8) 0.4 x10^3/uL (1.0-4.8) Monocytes # (Auto) 0.7 x10^3/uL (0.0-1.1) 0.7 x10^3/uL (0.0-1.1) Eosinophils # (Auto) 0.1 x10^3/uL (0.0-0.7) 0.0 x10^3/uL (0.0-0.7) Basophils # (Auto) 0.0 x10^3/uL (0.0-0.2) 0.0 x10^3/uL (0.0-0.2) Sodium Level 131 mmol/L (136-145) 133 mmol/L (136-145) Potassium Level 4.4 mmol/L (3.5-5.1) 4.4 mmol/L (3.5-5.1) Chloride Level 95 mmol/L (98-107) 95 mmol/L (98-107) Carbon Dioxide Level 25 mmol/L (21-32) 24 mmol/L (21-32) Anion Gap 11 (6-14) 14 (6-14) Blood Urea Nitrogen 26 mg/dL (8-26) 33 mg/dL (8-26) Creatinine 0.9 mg/dL (0.7-1.3) 1.0 mg/dL (0.7-1.3) Estimated GFR (Cockcroft-Gault) 82.3 72.8 Glucose Level 104 mg/dL (70-99) 100 mg/dL (70-99) Calcium Level 8.5 mg/dL (8.5-10.1) 8.9 mg/dL (8.5-10.1) Laboratory Tests Test 09/20/18 04:55 White Blood Count 4.7 x10^3/uL (4.0-11.0) Red Blood Count 4.33 x10^6/uL (4.30-5.70) Hemoglobin 13.2 g/dL (13.0-17.5) Hematocrit 38.5 % (39.0-53.0) Mean Corpuscular Volume 89 fL (79-100) Mean Corpuscular Hemoglobin 31 pg (25-35) Mean Corpuscular Hemoglobin Concent 34 g/dL (31-37) Red Cell Distribution Width 14.8 % (11.5-14.5) Platelet Count 123 x10^3/uL (140-400) Neutrophils (%) (Auto) 77 % (31-73) Lymphocytes (%) (Auto) 8 % (24-48) Monocytes (%) (Auto) 15 % (0-9) Eosinophils (%) (Auto) 0 % (0-3) Basophils (%) (Auto) 0 % (0-3) Neutrophils # (Auto) 3.6 x10^3uL (1.8-7.7) Lymphocytes # (Auto) 0.4 x10^3/uL (1.0-4.8) Monocytes # (Auto) 0.7 x10^3/uL (0.0-1.1) Eosinophils # (Auto) 0.0 x10^3/uL (0.0-0.7) Basophils # (Auto) 0.0 x10^3/uL (0.0-0.2) Sodium Level 133 mmol/L (136-145) Potassium Level 4.4 mmol/L (3.5-5.1) Chloride Level 95 mmol/L (98-107) Carbon Dioxide Level 24 mmol/L (21-32) Anion Gap 14 (6-14) Blood Urea Nitrogen 33 mg/dL (8-26) Creatinine 1.0 mg/dL (0.7-1.3) Estimated GFR (Cockcroft-Gault) 72.8 Glucose Level 100 mg/dL (70-99) Calcium Level 8.9 mg/dL (8.5-10.1) Problem List Problems Medical Problems: (1) Hypokalemia Status: Acute Assessment/Plan s/p lap right colon ADAT cont treatment for SVT per cards ANDREA DUNCAN MD September 20, 2018 08:41
[2018-09-20] MEDS: ASPIRIN ENTERIC COATED 81 MG TABLET.DR. PO SCH (08:42)
[2018-09-20] MEDS: PANTOPRAZOLE 40 MG TABLET.DR. PO SCH (08:42)
[2018-09-20] MEDS: ENOXAPARIN 40 MG/0.4 ML SYRINGE. SQ SCH (08:44)
[2018-09-20] MEDS ORDERED: AMIODARONE 900 MG in IV DEXTROSE 5% 500 ML IV PRN (09:30)
[2018-09-20] MEDS ORDERED: AMIODARONE 150 MG in IV DEXTROSE 5% 100ML 100 ML IV ONE (09:30)
--- NOTE | 2018-09-20 09:35 | PDOC ---
TERRY PUENTE BRICK CATCHER 09/20/18 0935: CARDIO Progress Notes Date and Time Date of Service 09/20/2018 Time of Evaluation 0920 Subjective Subjective: No Chest Pain, No shortness of breath, No Palpitations, Other (slightly dizzy while sitting up) Vitals Vitals Vital Signs Date Time Temp Pulse Resp B/P (MAP) Pulse Ox O2 Delivery O2 Flow Rate FiO2 09/20/18 08:34 169 120/65 09/20/18 07:00 98.4 12 Room Air 94.0 98.4 09/20/18 03:35 93 Weight Weight [ ] Input and Output Intake and Output Intake and Output 09/20/18 07:00 Intake Total 300 ml Balance 300 ml Intake Oral 300 ml # Voids 1 Laboratory Labs Laboratory Tests Test 09/20/18 04:55 White Blood Count 4.7 x10^3/uL (4.0-11.0) Red Blood Count 4.33 x10^6/uL (4.30-5.70) Hemoglobin 13.2 g/dL (13.0-17.5) Hematocrit 38.5 % (39.0-53.0) Mean Corpuscular Volume 89 fL (79-100) Mean Corpuscular Hemoglobin 31 pg (25-35) Mean Corpuscular Hemoglobin Concent 34 g/dL (31-37) Red Cell Distribution Width 14.8 % (11.5-14.5) Platelet Count 123 x10^3/uL (140-400) Neutrophils (%) (Auto) 77 % (31-73) Lymphocytes (%) (Auto) 8 % (24-48) Monocytes (%) (Auto) 15 % (0-9) Eosinophils (%) (Auto) 0 % (0-3) Basophils (%) (Auto) 0 % (0-3) Neutrophils # (Auto) 3.6 x10^3uL (1.8-7.7) Lymphocytes # (Auto) 0.4 x10^3/uL (1.0-4.8) Monocytes # (Auto) 0.7 x10^3/uL (0.0-1.1) Eosinophils # (Auto) 0.0 x10^3/uL (0.0-0.7) Basophils # (Auto) 0.0 x10^3/uL (0.0-0.2) Sodium Level 133 mmol/L (136-145) Potassium Level 4.4 mmol/L (3.5-5.1) Chloride Level 95 mmol/L (98-107) Carbon Dioxide Level 24 mmol/L (21-32) Anion Gap 14 (6-14) Blood Urea Nitrogen 33 mg/dL (8-26) Creatinine 1.0 mg/dL (0.7-1.3) Estimated GFR (Cockcroft-Gault) 72.8 Glucose Level 100 mg/dL (70-99) Calcium Level 8.9 mg/dL (8.5-10.1) Physical Exam HEENT: Neck Supple W Full Motion Chest: Symmetric LUNGS: Other (basilar crackles) Heart: S1S2, RRR (SR with PSVT) Abdomen: Other (abdominal surgical incision) Extremities: No Calf Tenderness Neurology: alert, oriented, follow commands Assessment Assessment 1. PSVT: persistent with occasional sustained episodes despite metoprolol. N oted also with bigeminal PVCcs when SR 2. Chilaiditi's syndrome s/p right hemicolectomy: POD#7, pain controlled but anxious 3. CAD s/p PCI/stent to RCA. Stable. CP free. Recent echo with preserved LV systolic function. Patient declined stress test last month as [facility] per record review. Cath 10/2016 with patent stent as noted above. 4. Hypertension; controlled, occasional low BP with noted SVT 5. Hyperlipidemia 6. Noncompliance: with appointments. Recommendations 1. EKG, Check Mg. Amiodarone drip. Continue metoprolol. Emphasized outpt cardiac follow up with EP evaluation. MCOT if not going to future rehab. 2. Anxiety control per PCP. Maintain pain control. 3. Further secondary prevention. ASA, statin therapy once PO allowed 4. Consider outpatient ischemic evaluation if pt is to comply. 5. Encourage compliance SOHA SANCHEZ MD 09/20/18 4887: CARDIO Progress Notes Plan Plan Pt. seen and examined. Agree with above ELEV[employer] GUARD note. He had SVT today, now in SR with PVC's. On amiodarone gtt. Continue b-nanci and amiodarone short term for now. TERRY PUENTE APRN September 20, 2018 09:35 SOHA SANCHEZ MD September 20, 2018 22:07
--- NOTE | 2018-09-20 10:00 | NUR ---
Pt's heart rate went up to 187 around 0800 asked to bear down Addendum: 09/20/18 at 1005 by ANTHONY DAY RN RN When pt beared down HR went up to 190, cardiology was alerted digoxin ordered and given. After digoxin given pt's rhythm still in SVT in the 100s, amiodarone to be given.
--- NOTE | 2018-09-20 10:25 | EKG ---
[facility] [address] [place] [address] Test Date: 2018-09-20 Test Time: 10:06:48 Pat Name: DONALD DELONG Department: Room: 204 1 Gender: M [employer] Set Up Operator: : [id number] Requested By: TERRY PUENTE Order Number: [id number] Reading MD: Isiah Rand Measurements Intervals [place] Rate: 103 P: 30 RI: 148 QRS: 28 QRSD: 84 T: 30 QT: 392 QTc: 516 Interpretive Statements SINUS TACHYCARDIA ATRIAL PREMATURE COMPLEX(ES), BIGEMINY LEFT ATRIAL ABNORMALITY ABNORMAL ECG Electronically Signed On 10-13-2018 12:03:35 CDT by Isiah Rand
--- NOTE | 2018-09-20 10:33 | PDOC ---
PROGRESS NOTES Chief Complaint Chief Complaint Postop day 7 colon resection Chilaiditi's syndrome s/p right hemicolectomy PSVT RLQ pain/R flank pain nephrolithiasis L renal cyst GERD HLD HTN OA hx of [place] Prior back surgery 26 min pt exam, chart review, > 50% of time spent with exam, chart review, pt care coordination History of Present Illness History of Present Illness Patient seen and examined Would site clean and intact S/P partial colon resection p.o. day 6 Denies having BM or flatus IV morphine discontinued Discussed with nurse Vitals Vitals Vital Signs Date Time Temp Pulse Resp B/P (MAP) Pulse Ox O2 Delivery O2 Flow Rate FiO2 09/20/18 10:09 101 125/58 09/20/18 08:00 Room Air 09/20/18 07:00 98.4 12 94.0 98.4 09/20/18 03:35 93 Physical Exam General: Alert, Oriented X3, Cooperative, No acute distress Heart: Regular rate, Normal S1, Normal S2, Other (2/6 systolic murmur, intermittant SVT) Lungs: Clear Abdomen: Soft, Other (incisional TTP) Extremities: No clubbing, No cyanosis Skin: No rashes, No breakdown Labs LABS Laboratory Tests Test 09/20/18 04:55 White Blood Count 4.7 x10^3/uL (4.0-11.0) Red Blood Count 4.33 x10^6/uL (4.30-5.70) Hemoglobin 13.2 g/dL (13.0-17.5) Hematocrit 38.5 % (39.0-53.0) Mean Corpuscular Volume 89 fL (79-100) Mean Corpuscular Hemoglobin 31 pg (25-35) Mean Corpuscular Hemoglobin Concent 34 g/dL (31-37) Red Cell Distribution Width 14.8 % (11.5-14.5) Platelet Count 123 x10^3/uL (140-400) Neutrophils (%) (Auto) 77 % (31-73) Lymphocytes (%) (Auto) 8 % (24-48) Monocytes (%) (Auto) 15 % (0-9) Eosinophils (%) (Auto) 0 % (0-3) Basophils (%) (Auto) 0 % (0-3) Neutrophils # (Auto) 3.6 x10^3uL (1.8-7.7) Lymphocytes # (Auto) 0.4 x10^3/uL (1.0-4.8) Monocytes # (Auto) 0.7 x10^3/uL (0.0-1.1) Eosinophils # (Auto) 0.0 x10^3/uL (0.0-0.7) Basophils # (Auto) 0.0 x10^3/uL (0.0-0.2) Sodium Level 133 mmol/L (136-145) Potassium Level 4.4 mmol/L (3.5-5.1) Chloride Level 95 mmol/L (98-107) Carbon Dioxide Level 24 mmol/L (21-32) Anion Gap 14 (6-14) Blood Urea Nitrogen 33 mg/dL (8-26) Creatinine 1.0 mg/dL (0.7-1.3) Estimated GFR (Cockcroft-Gault) 72.8 Glucose Level 100 mg/dL (70-99) Calcium Level 8.9 mg/dL (8.5-10.1) Magnesium Level 2.2 mg/dL (1.8-2.4) Assessment and Plan Assessmemt and Plan Problems Medical Problems: (1) Hypokalemia Status: Acute Comment Review of Relevant I have reviewed the following items jensen (where applicable) has been applied. Labs Laboratory Tests Test 09/19/18 05:40 09/20/18 04:55 White Blood Count 4.0 x10^3/uL (4.0-11.0) 4.7 x10^3/uL (4.0-11.0) Red Blood Count 4.27 x10^6/uL (4.30-5.70) 4.33 x10^6/uL (4.30-5.70) Hemoglobin 12.8 g/dL (13.0-17.5) 13.2 g/dL (13.0-17.5) Hematocrit 38.4 % (39.0-53.0) 38.5 % (39.0-53.0) Mean Corpuscular Volume 90 fL (79-100) 89 fL (79-100) Mean Corpuscular Hemoglobin 30 pg (25-35) 31 pg (25-35) Mean Corpuscular Hemoglobin Concent 33 g/dL (31-37) 34 g/dL (31-37) Red Cell Distribution Width 14.7 % (11.5-14.5) 14.8 % (11.5-14.5) Platelet Count 105 x10^3/uL (140-400) 123 x10^3/uL (140-400) Neutrophils (%) (Auto) 71 % (31-73) 77 % (31-73) Lymphocytes (%) (Auto) 11 % (24-48) 8 % (24-48) Monocytes (%) (Auto) 17 % (0-9) 15 % (0-9) Eosinophils (%) (Auto) 2 % (0-3) 0 % (0-3) Basophils (%) (Auto) 0 % (0-3) 0 % (0-3) Neutrophils # (Auto) 2.8 x10^3uL (1.8-7.7) 3.6 x10^3uL (1.8-7.7) Lymphocytes # (Auto) 0.4 x10^3/uL (1.0-4.8) 0.4 x10^3/uL (1.0-4.8) Monocytes # (Auto) 0.7 x10^3/uL (0.0-1.1) 0.7 x10^3/uL (0.0-1.1) Eosinophils # (Auto) 0.1 x10^3/uL (0.0-0.7) 0.0 x10^3/uL (0.0-0.7) Basophils # (Auto) 0.0 x10^3/uL (0.0-0.2) 0.0 x10^3/uL (0.0-0.2) Sodium Level 131 mmol/L (136-145) 133 mmol/L (136-145) Potassium Level 4.4 mmol/L (3.5-5.1) 4.4 mmol/L (3.5-5.1) Chloride Level 95 mmol/L (98-107) 95 mmol/L (98-107) Carbon Dioxide Level 25 mmol/L (21-32) 24 mmol/L (21-32) Anion Gap 11 (6-14) 14 (6-14) Blood Urea Nitrogen 26 mg/dL (8-26) 33 mg/dL (8-26) Creatinine 0.9 mg/dL (0.7-1.3) 1.0 mg/dL (0.7-1.3) Estimated GFR (Cockcroft-Gault) 82.3 72.8 Glucose Level 104 mg/dL (70-99) 100 mg/dL (70-99) Calcium Level 8.5 mg/dL (8.5-10.1) 8.9 mg/dL (8.5-10.1) Magnesium Level 2.2 mg/dL (1.8-2.4) Laboratory Tests Test 09/20/18 04:55 White Blood Count 4.7 x10^3/uL (4.0-11.0) Red Blood Count 4.33 x10^6/uL (4.30-5.70) Hemoglobin 13.2 g/dL (13.0-17.5) Hematocrit 38.5 % (39.0-53.0) Mean Corpuscular Volume 89 fL (79-100) Mean Corpuscular Hemoglobin 31 pg (25-35) Mean Corpuscular Hemoglobin Concent 34 g/dL (31-37) Red Cell Distribution Width 14.8 % (11.5-14.5) Platelet Count 123 x10^3/uL (140-400) Neutrophils (%) (Auto) 77 % (31-73) Lymphocytes (%) (Auto) 8 % (24-48) Monocytes (%) (Auto) 15 % (0-9) Eosinophils (%) (Auto) 0 % (0-3) Basophils (%) (Auto) 0 % (0-3) Neutrophils # (Auto) 3.6 x10^3uL (1.8-7.7) Lymphocytes # (Auto) 0.4 x10^3/uL (1.0-4.8) Monocytes # (Auto) 0.7 x10^3/uL (0.0-1.1) Eosinophils # (Auto) 0.0 x10^3/uL (0.0-0.7) Basophils # (Auto) 0.0 x10^3/uL (0.0-0.2) Sodium Level 133 mmol/L (136-145) Potassium Level 4.4 mmol/L (3.5-5.1) Chloride Level 95 mmol/L (98-107) Carbon Dioxide Level 24 mmol/L (21-32) Anion Gap 14 (6-14) Blood Urea Nitrogen 33 mg/dL (8-26) Creatinine 1.0 mg/dL (0.7-1.3) Estimated GFR (Cockcroft-Gault) 72.8 Glucose Level 100 mg/dL (70-99) Calcium Level 8.9 mg/dL (8.5-10.1) Magnesium Level 2.2 mg/dL (1.8-2.4) Medications Current Medications Adenosine (Adenocard) 6 mg STK-MED ONCE IV ; Start 09/11/18 at 10:13; Stop 09/11/18 at 10:14; Status DC Adenosine (Adenocard) 12 mg 1X ONCE IV ; Start 09/11/18 at 10:15; Stop 09/11/18 at 10:17; Status DC Sodium Chloride 1,000 ml @ 1,000 mls/hr Q1H IV Last administered on 09/11/18at 10:42; Start 09/11/18 at 10:13; Stop 09/11/18 at 11:12; Status DC Adenosine (Adenocard) 6 mg 1X ONCE IV ; Start 09/11/18 at 10:15; Stop 09/11/18 at 10:17; Status DC Ondansetron HCl (Zofran) 4 mg 1X ONCE IV Last administered on 09/11/18at 10:46; Start 09/11/18 at 10:45; Stop 09/11/18 at 10:46; Status DC Potassium Chloride (Klor-Con) 40 meq 1X ONCE PO Last administered on 09/11/18at 13:01; Start 09/11/18 at 11:15; Stop 09/11/18 at 11:16; Status DC Aspirin (Ecotrin) 81 mg DAILY PO Last administered on 09/20/18at 08:42; Start 09/11/18 at 13:00 Metoprolol Succinate (Toprol Xl) 25 mg HS PO ; Start 09/11/18 at 21:00; Stop 09/11/18 at 21:00; Status DC Ondansetron HCl (Zofran Odt) 4 mg PRN Q6HRS PRN PO NAUSEA/VOMITING Last administered on 09/20/18at 00:35; Start 09/11/18 at 13:00 Pantoprazole Sodium (Protonix) 40 mg DAILYAC PO Last administered on 09/13/18 09:36; Start 09/11/18 at 13:00; Stop 09/14/18 at 11:54; Status DC Simvastatin (Zocor) 40 mg QHS PO Last administered on 09/11/18 20:46; Start 09/11/18 at 21:00; Stop 09/12/18 at 15:50; Status DC Ondansetron HCl (Zofran) 4 mg STK-MED ONCE .ROUTE ; Start 09/11/18 at 10:46; Stop 09/11/18 at 12:12; Status DC Sodium Chloride 1,000 ml @ 100 mls/hr 1X ONCE IV Last administered on 09/11/18 13:04; Start 09/11/18 at 12:45; Stop 09/11/18 at 22:44; Status DC Iohexol (Omnipaque 240 Mg/ml) 50 ml 1X ONCE PO Last administered on 09/11/18 14:40; Start 09/11/18 at 13:15; Stop 09/11/18 at 13:23; Status DC Iohexol (Omnipaque 300 Mg/ml) 75 ml 1X ONCE IV Last administered on 09/11/18 14:40; Start 09/11/18 at 13:15; Stop 09/11/18 at 13:23; Status DC Info (CONTRAST GIVEN -- Rx MONITORING) 1 each PRN DAILY PRN MC SEE COMMENTS; Start 09/11/18 at 13:30; Stop 09/13/18 at 13:29; Status DC Ondansetron HCl (Zofran) 4 mg PRN Q6HRS PRN IV NAUSEA/VOMITING 1ST CHOICE Last administered on 09/17/18 08:30; Start 09/11/18 at 15:00; Stop 09/19/18 at 20:22; Status DC Prochlorperazine Edisylate (Compazine) 10 mg PRN Q6HRS PRN IV NAUSEA/VOMITING 2ND CHOICE Last administered on 09/17/18 09:48; Start 09/11/18 at 15:00; Stop 09/18/18 at 16:57; Status DC Metoprolol Succinate (Toprol Xl) 50 mg HS PO Last administered on 09/12/18 20:30; Start 09/11/18 at 21:00; Stop 09/14/18 at 14:39; Status DC Morphine Sulfate (Morphine Sulfate) 2 mg PRN Q4HRS PRN IV MODERATE-SEVERE PAIN Last administered on 09/18/18 21:33; Start 09/11/18 at 17:45; Stop 09/19/18 at 08:56; Status DC Acetaminophen/ Hydrocodone Bitart (Lortab 5/325) 1 tab PRN Q6HRS PRN PO PAIN Last administered on 09/19/18 20:42; Start 09/11/18 at 17:45 Tamsulosin HCl (Flomax) 0.4 mg DAILY PO ; Start 09/12/18 at 10:00; Stop 09/12/18 at 10:37; Status DC Polyethylene Glycol (miraLAX PACKET) 17 gm PRN DAILY PRN PO CONSTIPATION Last administered on 09/18/18 09:13; Start 09/12/18 at 09:15 Ketorolac Tromethamine (Toradol 30mg Vial) 30 mg PRN Q6HRS PRN IV MILD PAIN Last administered on 09/17/18 09:49; Start 09/12/18 at 10:15; Stop 09/17/18 at 10:14; Status DC Meclizine HCl (Antivert) 12.5 mg PRN Q6HRS PRN PO DIZZINESS Last administered on 09/17/18 08:30; Start 09/12/18 at 11:15 Sodium Monofluorophosphate (Fleet Adult) 133 ml 1X ONCE [place] Last administered on 09/12/18 16:13; Start 09/12/18 at 14:45; Stop 09/12/18 at 14:46; Status DC Magnesium Citrate (Citroma) 296 ml 1X ONCE PO Last administered on 09/12/18 16:12; Start 09/12/18 at 16:00; Stop 09/12/18 at 16:01; Status DC Erythromycin (E-Mycin) 500 mg TID PO Last administered on 09/13/18 09:39; Start 09/12/18 at 15:00; Stop 09/14/18 at 11:39; Status DC Neomycin Sulfate (Neomycin Sulfate) 500 mg TID PO Last administered on 09/13/18 09:39; Start 09/12/18 at 16:00; Stop 09/14/18 at 11:39; Status DC Cefoxitin Sodium (Mefoxin) 2 gm 1X PERIOP ONCE IVP Last administered on 09/13/18at 12:40; Start 09/13/18 at 12:00; Stop 09/13/18 at 12:01; Status DC Atorvastatin Calcium (Lipitor) 20 mg QHS PO Last administered on 09/19/18at 20:42; Start 09/12/18 at 21:00 Ondansetron HCl (Zofran) 4 mg PRN Q6HRS PRN IV NAUSEA/VOMITING; Start 09/13/18 at 07:00; Stop 09/14/18 at 06:59; Status DC Fentanyl Citrate (Fentanyl 2ml Vial) 25 mcg PRN Q5MIN PRN IV MILD PAIN; Start 09/13/18 at 07:00; Stop 09/14/18 at 06:59; Status DC Fentanyl Citrate (Fentanyl 2ml Vial) 50 mcg PRN Q5MIN PRN IV MODERATE TO SEVERE PAIN; Start 09/13/18 at 07:00; Stop 09/14/18 at 06:59; Status DC Morphine Sulfate (Morphine Sulfate) 1 mg PRN Q10MIN PRN IV SEVERE PAIN; Start 09/13/18 at 07:00; Stop 09/14/18 at 06:59; Status DC Ringer's Solution 1,000 ml @ 30 mls/hr Q24H IV Last administered on 09/13/18at 06:32; Start 09/13/18 at 07:00; Stop 09/13/18 at 16:44; Status DC Lidocaine HCl (Xylocaine-Mpf 1% 2ml Vial) 2 ml PRN 1X PRN ID PRIOR TO IV START; Start 09/13/18 at 07:00; Stop 09/14/18 at 06:59; Status DC Hydromorphone HCl (Dilaudid) 0.5 mg PRN Q10MIN PRN IV SEV PAIN, Second choice; Start 09/13/18 at 07:00; Stop 09/14/18 at 06:59; Status DC Prochlorperazine Edisylate (Compazine) 5 mg PACU PRN PRN IV NAUSEA, MRX1; Start 09/13/18 at 07:00; Stop 09/14/18 at 06:59; Status DC Lorazepam (Ativan) 0.5 mg PRN Q6HRS PRN IV ANXIETY / AGITATION Last administered on 09/19/18at 00:08; Start 09/12/18 at 19:45 Bupivacaine HCl/ Epinephrine Bitart (Sensorcain-Mpf Epi 0.5%-[id number]) 30 ml STK-MED ONCE .ROUTE Last administered on 09/13/18at 13:10; Start 09/13/18 at 10:55; Stop 09/13/18 at 11:55; Status DC Rocuronium Beaver (Zemuron) 50 mg STK-MED ONCE .ROUTE ; Start 09/13/18 at 12:09; Stop 09/13/18 at 12:10; Status DC Midazolam HCl (Versed) 2 mg STK-MED ONCE .ROUTE ; Start 09/13/18 at 12:09; Stop 09/13/18 at 12:10; Status DC Fentanyl Citrate (Fentanyl 5ml Vial) 250 mcg STK-MED ONCE .ROUTE ; Start 09/13/18 at 12:09; Stop 09/13/18 at 12:10; Status DC Propofol 20 ml @ As Directed STK-MED ONCE IV ; Start 09/13/18 at 12:11; Stop 09/13/18 at 12:12; Status DC Lidocaine HCl (Lidocaine Pf 2% Vial) 5 ml STK-MED ONCE .ROUTE ; Start 09/13/18 at 12:11; Stop 09/13/18 at 12:12; Status DC Ondansetron HCl (Zofran) 4 mg STK-MED ONCE .ROUTE ; Start 09/13/18 at 12:11; Stop 09/13/18 at 12:12; Status DC Dexamethasone Sodium Phosphate (Decadron) 4 mg STK-MED ONCE .ROUTE ; Start 09/13/18 at 12:11; Stop 09/13/18 at 12:12; Status DC Cefoxitin Sodium (Mefoxin) 2 gm 1X ONCE IVP Last administered on 09/13/18at 14:40; Start 09/13/18 at 12:15; Stop 09/13/18 at 12:16; Status DC Ephedrine Sulfate (ePHEDrine PF IN SALINE SYRINGE) 50 mg STK-MED ONCE IV ; Start 09/13/18 at 12:51; Stop 09/13/18 at 12:52; Status DC Phenylephrine HCl (PHENYLEPHRINE in 0.9% NACL PF) 1 mg STK-MED ONCE IV ; Start 09/13/18 at 12:51; Stop 09/13/18 at 12:52; Status DC Rocuronium Beaver (Zemuron) 50 mg STK-MED ONCE .ROUTE ; Start 09/13/18 at 13:36; Stop 09/13/18 at 13:37; Status DC Fentanyl Citrate (Fentanyl 5ml Vial) 250 mcg STK-MED ONCE .ROUTE ; Start 09/13/18 at 13:51; Stop 09/13/18 at 13:52; Status DC Neostigmine Methylsulfate (Neostigmine Methylsulfate) 5 mg STK-MED ONCE .ROUTE ; Start 09/13/18 at 13:57; Stop 09/13/18 at 13:58; Status DC Glycopyrrolate (Robinul) 1 mg STK-MED ONCE .ROUTE ; Start 09/13/18 at 13:57; Stop 09/13/18 at 13:58; Status DC Esmolol HCl (Brevibloc) 100 mg STK-MED ONCE IVP ; Start 09/13/18 at 14:00; Stop 09/13/18 at 14:01; Status DC Sevoflurane (Ultane) 90 ml STK-MED ONCE IH ; Start 09/13/18 at 14:19; Stop 09/13/18 at 14:20; Status DC Enoxaparin Sodium (Lovenox 40mg Syringe) 40 mg Q24H SQ ; Start 09/13/18 at 16:00; Status Cancel Sodium Chloride (Normal Saline Flush) 3 ml QSHIFT PRN IV AFTER MEDS AND BLOOD DRAWS; Start 09/13/18 at 15:15 Ringer's Solution 1,000 ml @ 100 mls/hr Q10H IV Last administered on 09/14/18at 01:04; Start 09/13/18 at 15:04; Stop 09/14/18 at 11:39; Status DC Naloxone HCl (Narcan) 0.4 mg PRN Q2MIN PRN IV SEE INSTRUCTIONS; Start 09/13/18 at 15:15 Sodium Chloride 1,000 ml @ 25 mls/hr Q24H IV ; Start 09/13/18 at 15:04; Stop 09/16/18 at 10:36; Status DC Morphine Sulfate 30 ml @ 0 mls/hr CONT PRN PRN IV PER PROTOCOL; Start 09/13/18 at 15:15; Stop 09/19/18 at 08:56; Status DC Lidocaine HCl (Lidocaine HCl 2% Abboject) 100 mg STK-MED ONCE .ROUTE ; Start 09/13/18 at 15:35; Stop 09/13/18 at 15:36; Status DC Lidocaine HCl (Lidocaine HCl 2% Abboject) 100 mg 1X ONCE IV Last administered on 09/13/18at 15:45; Start 09/13/18 at 15:45; Stop 09/13/18 at 15:46; Status DC Enoxaparin Sodium (Lovenox 40mg Syringe) 40 mg Q24H SQ Last administered on 09/20/18at 08:44; Start 09/14/18 at 09:00 Metoprolol Tartrate (Lopressor Vial) 5 mg Q8HRS IVP Last administered on 09/15/18at 05:48; Start 09/14/18 at 06:00; Stop 09/15/18 at 10:30; Status DC Metoprolol Tartrate (Lopressor Vial) 5 mg 1X ONCE IVP Last administered on 09/13/18at 18:42; Start 09/13/18 at 18:45; Stop 09/13/18 at 18:46; Status DC Amino Acids/ Glycerin/ Electrolytes 1,000 ml @ 75 mls/hr [id number] IV Last administered on 09/18/18at 17:19; Start 09/14/18 at 11:45 Pantoprazole Sodium (PROTONIX VIAL for IV PUSH) 40 mg DAILYAC IVP Last administered on 09/16/18at 08:38; Start 09/15/18 at 07:30; Stop 09/16/18 at 10:36; Status DC Pantoprazole Sodium (PROTONIX VIAL for IV PUSH) 40 mg 1X ONCE IVP Last administered on 09/14/18at 12:04; Start 09/14/18 at 12:00; Stop 09/14/18 at 12:01; Status DC Metoprolol Tartrate (Lopressor Vial) 5 mg PRN Q4HRS PRN IVP TACHYCARDIA Last administered on 09/20/18at 06:44; Start 09/15/18 at 10:30 Metoprolol Succinate (Toprol Xl) 25 mg BID PO Last administered on 09/15/18 20:30; Start 09/15/18 at 12:00; Stop 09/16/18 at 10:48; Status DC Pantoprazole Sodium (Protonix) 40 mg DAILYAC PO Last administered on 09/20/18 08:42; Start 09/17/18 at 07:30 Metoprolol Succinate (Toprol Xl) 25 mg Q6HRS PO Last administered on 09/20/18 06:32; Start 09/16/18 at 12:00 Prochlorperazine Edisylate (Compazine) 10 mg PRN Q8HRS PRN IV NAUSEA/VOMITING 2ND CHOICE Last administered on 09/18/18 17:18; Start 09/16/18 at 15:15 Trazodone HCl (Desyrel) 50 mg QHS PO Last administered on 09/19/18 20:42; Start 09/17/18 at 21:00 Bisacodyl (Dulcolax Supp) 10 mg PRN DAILY PRN [place] CONSTIPATION; Start 09/19/18 at 11:45 Ondansetron HCl (Zofran) 8 mg PRN Q8HRS PRN IV NAUSEA/VOMITING 1ST CHOICE; S tart 09/19/18 at 20:30 Promethazine HCl (Phenergan) 12.5 mg PRN Q6HRS PRN PO NAUSEA/VOMITING Last administered on 09/19/18at 20:40; Start 09/19/18 at 20:30 Prochlorperazine Edisylate (Compazine) 10 mg PRN Q6HRS PRN IV NAUSEA/VOMITING; Start 09/19/18 at 20:30 Lorazepam (Ativan) 1 mg PRN Q6HRS PRN PO ANXIETY / AGITATION; Start 09/19/18 at 20:45 Digoxin (Lanoxin) 500 mcg 1X ONCE IV Last administered on 09/20/18at 08:34; Start 09/20/18 at 08:30; Stop 09/20/18 at 08:31; Status DC Amiodarone HCl 150 mg/Dextrose 103 ml @ 600 mls/hr 1X ONCE IV Last administered on 09/20/18at 10:09; Start 09/20/18 at 09:30; Stop 09/20/18 at 09:40; Status DC Amiodarone HCl 900 mg/Dextrose 518 ml @ 0 mls/hr CONT PRN IV SEE I/O RECORD; Start 09/20/18 at 09:30; Stop 09/21/18 at 09:29 Active Scripts Active Ondansetron Odt (Ondansetron) 4 Mg Tab.rapdis 1 Tab PO PRN Q6-8HRS Protonix (Pantoprazole Sodium) 40 Mg Tablet. 1 Tab PO DAILY Reported Zocor (Simvastatin) 40 Mg Tablet 40 Mg PO HS Toprol Xl (Metoprolol Succinate) 25 Mg Tab.er.24h 25 Mg PO HS Aspir 81 (Aspirin) 81 Mg Tablet. 81 Mg PO DAILY Vitals/I & O Vital Sign - Last 24 Hours 09/19/18 09/19/18 09/19/18 09/19/18 11:00 12:00 18:00 19:35 Temp 97.5 97.8 97.5 97.8 Pulse 72 72 72 91 Resp 18 20 B/P (MAP) 96/60 (72) 96/60 90/52 108/57 (74) Pulse Ox 95 92 O2 Delivery Room Air Room Air 09/19/18 09/19/18 09/19/18 09/20/18 20:00 20:42 21:42 00:00 Pulse 103 Resp 16 16 Pulse Ox 92 92 O2 Delivery Room Air Room Air Room Air 09/20/18 09/20/18 09/20/18 09/20/18 03:35 06:32 06:44 07:00 Temp 99.1 98.4 99.1 98.4 Pulse 92 167 171 128 Resp 20 12 B/P (MAP) 115/66 (82) 114/75 114/75 83/56 (65) Pulse Ox 93 O2 Delivery Room Air Room Air O2 Flow Rate 94.0 09/20/18 09/20/18 09/20/18 08:00 08:34 10:09 Pulse 169 101 B/P (MAP) 120/65 125/58 O2 Delivery Room Air Intake and Output 09/19/18 09/19/18 09/20/18 14:59 22:59 06:59 Intake Total 300 ml Balance 300 ml DAQUAN TANG MD September 20, 2018 10:33
--- NOTE | 2018-09-20 11:41 | PDOC ---
Subjective: Subjective: Reports flatus and stool, asks if his can bring him food. Objective: Objective: Chart reviewed - SVT overnight. Vital Signs: Vital Signs Date Time Temp Pulse Resp B/P (MAP) Pulse Ox O2 Delivery O2 Flow Rate FiO2 09/20/18 10:09 101 125/58 09/20/18 08:00 Room Air 09/20/18 07:00 98.4 12 94.0 98.4 09/20/18 03:35 93 Labs: Laboratory Tests Test 09/20/18 04:55 White Blood Count 4.7 x10^3/uL Red Blood Count 4.33 x10^6/uL Hemoglobin 13.2 g/dL Hematocrit 38.5 % Mean Corpuscular Volume 89 fL Mean Corpuscular Hemoglobin 31 pg Mean Corpuscular Hemoglobin Concent 34 g/dL Red Cell Distribution Width 14.8 % Platelet Count 123 x10^3/uL Neutrophils (%) (Auto) 77 % Lymphocytes (%) (Auto) 8 % Monocytes (%) (Auto) 15 % Eosinophils (%) (Auto) 0 % Basophils (%) (Auto) 0 % Neutrophils # (Auto) 3.6 x10^3uL Lymphocytes # (Auto) 0.4 x10^3/uL Monocytes # (Auto) 0.7 x10^3/uL Eosinophils # (Auto) 0.0 x10^3/uL Basophils # (Auto) 0.0 x10^3/uL Sodium Level 133 mmol/L Potassium Level 4.4 mmol/L Chloride Level 95 mmol/L Carbon Dioxide Level 24 mmol/L Anion Gap 14 Blood Urea Nitrogen 33 mg/dL Creatinine 1.0 mg/dL Estimated GFR (Cockcroft-Gault) 72.8 Glucose Level 100 mg/dL Calcium Level 8.9 mg/dL Magnesium Level 2.2 mg/dL PE: GEN: NAD, present LUNGS: CTAB HEART: RRR ABD: S/ND/NT NEURO/PSYCH: A & O 3 A/P: Chilaiditi's syndrome s/p right hemicolectomy PSVT -- Post-op ileus resolved, plans to advance diet per surgery. JORDON RODARTE September 20, 2018 11:41
--- NOTE | 2018-09-20 13:01 | NUR ---
SS following up with discharge planning. Pt has orders to advance diet as tolerated. Pt accepted at [facility]. Pt's RN notified.
--- NOTE | 2018-09-20 20:01 | NUR ---
Amiodarone drip bag was not scanned at time of hanging med. Had been running for 6 hours at 33. 3 ml/hr. spoke with Elizabeth in Pharmacy, was told to scan now and note the rate at which the drip is running. now running at 16.7 mls/hr.
[2018-09-20] MEDS: traZODone 50 MG TABLET. PO SCH (20:50)
[2018-09-20] MEDS: ATORVASTATIN CALCIUM 20 MG TABLET PO SCH (20:50)
[2018-09-21] MEDS: METOPROLOL SUCC 24HR ER 25 MG TAB.ER.24H. PO SCH ×2 (00:11→06:09)
[2018-09-21 02:36] VITALS: BP 113/64
[2018-09-21] MEDS: AMINO AC 3%/ELECTROLYTE/GLYCER 1,000 ML IV SCH ×2 (03:45→15:00)
[2018-09-21 05:11] LABS: BASO % 0 % (0-3); EOS # 0.1 x10^3/uL (0.0-0.7); EOS % 1 % (0-3); HEMATOCRIT 35.8 % (39.0-53.0); LYMPH # 0.6 x10^3/uL (1.0-4.8); LYMPH % 12 % (24-48); MEAN CORPUSCULAR HEMOGLOBIN 30 pg (25-35); MEAN CORPUSCULAR HGB CONC 34 g/dL (31-37); MEAN CORPUSCULAR VOLUME 89 fL (79-100); MONO # 0.7 x10^3/uL (0.0-1.1); MONO % 15 % (0-9); NEUT # 3.5 x10^3uL (1.8-7.7); NEUT % 72 % (31-73); PLATELET COUNT 121 x10^3/uL (140-400); RED CELL DISTRIBUTION WIDTH 14.8 % (11.5-14.5); WHITE BLOOD COUNT 4.8 x10^3/uL (4.0-11.0)
[2018-09-21 05:31] LABS: CALCIUM 8.2 mg/dL (8.5-10.1); CREATININE 1.1 mg/dL (0.7-1.3); GFR 65.3; POTASSIUM 4.2 mmol/L (3.5-5.1)
[2018-09-21] MEDS: PANTOPRAZOLE 40 MG TABLET.DR. PO SCH (06:09)
[2018-09-21 07:00] VITALS: BP 109/64
[2018-09-21] MEDS: AMIODARONE HCL 200 MG TABLET. PO SCH (08:10)
[2018-09-21] MEDS: ASPIRIN ENTERIC COATED 81 MG TABLET.DR. PO SCH (08:10)
[2018-09-21] MEDS: ENOXAPARIN 40 MG/0.4 ML SYRINGE. SQ SCH (08:11)
--- NOTE | 2018-09-21 08:26 | PDOC ---
SURGICAL PROGRESS NOTE Subjective tolerating diet mild pain RLQ having stools Vital Signs Vital Signs Date Time Temp Pulse Resp B/P (MAP) Pulse Ox O2 Delivery O2 Flow Rate FiO2 09/21/18 08:10 72 109/64 09/21/18 02:36 97.7 16 93 Room Air 97.7 09/20/18 07:00 94.0 I&O Intake and Output 09/21/18 06:59 Intake Total 100 ml Output Total 825 ml Balance -725 ml Intake Oral 100 ml Output Urine Total 825 ml # Voids 3 # Bowel Movements 2 General: Alert, Oriented X3, Cooperative, No acute distress Abdomen: Soft, Other (ND, incisions healing, no signs of infection) Labs Laboratory Tests Test 09/20/18 04:55 09/21/18 03:55 White Blood Count 4.7 x10^3/uL (4.0-11.0) 4.8 x10^3/uL (4.0-11.0) Red Blood Count 4.33 x10^6/uL (4.30-5.70) 4.00 x10^6/uL (4.30-5.70) Hemoglobin 13.2 g/dL (13.0-17.5) 12.0 g/dL (13.0-17.5) Hematocrit 38.5 % (39.0-53.0) 35.8 % (39.0-53.0) Mean Corpuscular Volume 89 fL (79-100) 89 fL (79-100) Mean Corpuscular Hemoglobin 31 pg (25-35) 30 pg (25-35) Mean Corpuscular Hemoglobin Concent 34 g/dL (31-37) 34 g/dL (31-37) Red Cell Distribution Width 14.8 % (11.5-14.5) 14.8 % (11.5-14.5) Platelet Count 123 x10^3/uL (140-400) 121 x10^3/uL (140-400) Neutrophils (%) (Auto) 77 % (31-73) 72 % (31-73) Lymphocytes (%) (Auto) 8 % (24-48) 12 % (24-48) Monocytes (%) (Auto) 15 % (0-9) 15 % (0-9) Eosinophils (%) (Auto) 0 % (0-3) 1 % (0-3) Basophils (%) (Auto) 0 % (0-3) 0 % (0-3) Neutrophils # (Auto) 3.6 x10^3uL (1.8-7.7) 3.5 x10^3uL (1.8-7.7) Lymphocytes # (Auto) 0.4 x10^3/uL (1.0-4.8) 0.6 x10^3/uL (1.0-4.8) Monocytes # (Auto) 0.7 x10^3/uL (0.0-1.1) 0.7 x10^3/uL (0.0-1.1) Eosinophils # (Auto) 0.0 x10^3/uL (0.0-0.7) 0.1 x10^3/uL (0.0-0.7) Basophils # (Auto) 0.0 x10^3/uL (0.0-0.2) 0.0 x10^3/uL (0.0-0.2) Sodium Level 133 mmol/L (136-145) 133 mmol/L (136-145) Potassium Level 4.4 mmol/L (3.5-5.1) 4.2 mmol/L (3.5-5.1) Chloride Level 95 mmol/L (98-107) 98 mmol/L (98-107) Carbon Dioxide Level 24 mmol/L (21-32) 27 mmol/L (21-32) Anion Gap 14 (6-14) 8 (6-14) Blood Urea Nitrogen 33 mg/dL (8-26) 34 mg/dL (8-26) Creatinine 1.0 mg/dL (0.7-1.3) 1.1 mg/dL (0.7-1.3) Estimated GFR (Cockcroft-Gault) 72.8 65.3 Glucose Level 100 mg/dL (70-99) 111 mg/dL (70-99) Calcium Level 8.9 mg/dL (8.5-10.1) 8.2 mg/dL (8.5-10.1) Magnesium Level 2.2 mg/dL (1.8-2.4) Laboratory Tests Test 09/21/18 03:55 White Blood Count 4.8 x10^3/uL (4.0-11.0) Red Blood Count 4.00 x10^6/uL (4.30-5.70) Hemoglobin 12.0 g/dL (13.0-17.5) Hematocrit 35.8 % (39.0-53.0) Mean Corpuscular Volume 89 fL (79-100) Mean Corpuscular Hemoglobin 30 pg (25-35) Mean Corpuscular Hemoglobin Concent 34 g/dL (31-37) Red Cell Distribution Width 14.8 % (11.5-14.5) Platelet Count 121 x10^3/uL (140-400) Neutrophils (%) (Auto) 72 % (31-73) Lymphocytes (%) (Auto) 12 % (24-48) Monocytes (%) (Auto) 15 % (0-9) Eosinophils (%) (Auto) 1 % (0-3) Basophils (%) (Auto) 0 % (0-3) Neutrophils # (Auto) 3.5 x10^3uL (1.8-7.7) Lymphocytes # (Auto) 0.6 x10^3/uL (1.0-4.8) Monocytes # (Auto) 0.7 x10^3/uL (0.0-1.1) Eosinophils # (Auto) 0.1 x10^3/uL (0.0-0.7) Basophils # (Auto) 0.0 x10^3/uL (0.0-0.2) Sodium Level 133 mmol/L (136-145) Potassium Level 4.2 mmol/L (3.5-5.1) Chloride Level 98 mmol/L (98-107) Carbon Dioxide Level 27 mmol/L (21-32) Anion Gap 8 (6-14) Blood Urea Nitrogen 34 mg/dL (8-26) Creatinine 1.1 mg/dL (0.7-1.3) Estimated GFR (Cockcroft-Gault) 65.3 Glucose Level 111 mg/dL (70-99) Calcium Level 8.2 mg/dL (8.5-10.1) Problem List Problems Medical Problems: (1) Hypokalemia Status: Acute Assessment/Plan s/p right colon cardiac management HANNAH EAST APRN September 21, 2018 08:26
--- NOTE | 2018-09-21 09:04 | PDOC ---
PROGRESS NOTES Chief Complaint Chief Complaint Postop day 7 colon resection Chilaiditi's syndrome s/p right hemicolectomy PSVT RLQ pain/R flank pain nephrolithiasis L renal cyst GERD HLD HTN OA hx of [place] Prior back surgery 36 min pt exam, chart review, > 50% of time spent with exam, chart review, pt care coordination bolus of amiodarone this AM History of Present Illness History of Present Illness Patient seen and examined Would site clean and intact S/P partial colon resection p.o. day 6 Denies having BM or flatus IV morphine discontinued Discussed with nurse Vitals Vitals Vital Signs Date Time Temp Pulse Resp B/P (MAP) Pulse Ox O2 Delivery O2 Flow Rate FiO2 09/21/18 08:10 72 109/64 09/21/18 02:36 97.7 16 93 Room Air 97.7 09/20/18 07:00 94.0 Physical Exam General: Alert, Oriented X3, Cooperative, No acute distress, mild distress Heart: Regular rate, Normal S1, Normal S2, Other (2/6 systolic murmur, intermittant SVT) Lungs: Clear Abdomen: Soft, No tenderness, Other (ND, incisions healing, no signs of infection) Extremities: No clubbing, No cyanosis Skin: No rashes, No breakdown Labs LABS Laboratory Tests Test 09/21/18 03:55 White Blood Count 4.8 x10^3/uL (4.0-11.0) Red Blood Count 4.00 x10^6/uL (4.30-5.70) Hemoglobin 12.0 g/dL (13.0-17.5) Hematocrit 35.8 % (39.0-53.0) Mean Corpuscular Volume 89 fL (79-100) Mean Corpuscular Hemoglobin 30 pg (25-35) Mean Corpuscular Hemoglobin Concent 34 g/dL (31-37) Red Cell Distribution Width 14.8 % (11.5-14.5) Platelet Count 121 x10^3/uL (140-400) Neutrophils (%) (Auto) 72 % (31-73) Lymphocytes (%) (Auto) 12 % (24-48) Monocytes (%) (Auto) 15 % (0-9) Eosinophils (%) (Auto) 1 % (0-3) Basophils (%) (Auto) 0 % (0-3) Neutrophils # (Auto) 3.5 x10^3uL (1.8-7.7) Lymphocytes # (Auto) 0.6 x10^3/uL (1.0-4.8) Monocytes # (Auto) 0.7 x10^3/uL (0.0-1.1) Eosinophils # (Auto) 0.1 x10^3/uL (0.0-0.7) Basophils # (Auto) 0.0 x10^3/uL (0.0-0.2) Sodium Level 133 mmol/L (136-145) Potassium Level 4.2 mmol/L (3.5-5.1) Chloride Level 98 mmol/L (98-107) Carbon Dioxide Level 27 mmol/L (21-32) Anion Gap 8 (6-14) Blood Urea Nitrogen 34 mg/dL (8-26) Creatinine 1.1 mg/dL (0.7-1.3) Estimated GFR (Cockcroft-Gault) 65.3 Glucose Level 111 mg/dL (70-99) Calcium Level 8.2 mg/dL (8.5-10.1) Assessment and Plan Assessmemt and Plan Problems Medical Problems: (1) Hypokalemia Status: Acute Comment Review of Relevant I have reviewed the following items jensen (where applicable) has been applied. Labs Laboratory Tests Test 09/20/18 04:55 09/21/18 03:55 White Blood Count 4.7 x10^3/uL (4.0-11.0) 4.8 x10^3/uL (4.0-11.0) Red Blood Count 4.33 x10^6/uL (4.30-5.70) 4.00 x10^6/uL (4.30-5.70) Hemoglobin 13.2 g/dL (13.0-17.5) 12.0 g/dL (13.0-17.5) Hematocrit 38.5 % (39.0-53.0) 35.8 % (39.0-53.0) Mean Corpuscular Volume 89 fL (79-100) 89 fL (79-100) Mean Corpuscular Hemoglobin 31 pg (25-35) 30 pg (25-35) Mean Corpuscular Hemoglobin Concent 34 g/dL (31-37) 34 g/dL (31-37) Red Cell Distribution Width 14.8 % (11.5-14.5) 14.8 % (11.5-14.5) Platelet Count 123 x10^3/uL (140-400) 121 x10^3/uL (140-400) Neutrophils (%) (Auto) 77 % (31-73) 72 % (31-73) Lymphocytes (%) (Auto) 8 % (24-48) 12 % (24-48) Monocytes (%) (Auto) 15 % (0-9) 15 % (0-9) Eosinophils (%) (Auto) 0 % (0-3) 1 % (0-3) Basophils (%) (Auto) 0 % (0-3) 0 % (0-3) Neutrophils # (Auto) 3.6 x10^3uL (1.8-7.7) 3.5 x10^3uL (1.8-7.7) Lymphocytes # (Auto) 0.4 x10^3/uL (1.0-4.8) 0.6 x10^3/uL (1.0-4.8) Monocytes # (Auto) 0.7 x10^3/uL (0.0-1.1) 0.7 x10^3/uL (0.0-1.1) Eosinophils # (Auto) 0.0 x10^3/uL (0.0-0.7) 0.1 x10^3/uL (0.0-0.7) Basophils # (Auto) 0.0 x10^3/uL (0.0-0.2) 0.0 x10^3/uL (0.0-0.2) Sodium Level 133 mmol/L (136-145) 133 mmol/L (136-145) Potassium Level 4.4 mmol/L (3.5-5.1) 4.2 mmol/L (3.5-5.1) Chloride Level 95 mmol/L (98-107) 98 mmol/L (98-107) Carbon Dioxide Level 24 mmol/L (21-32) 27 mmol/L (21-32) Anion Gap 14 (6-14) 8 (6-14) Blood Urea Nitrogen 33 mg/dL (8-26) 34 mg/dL (8-26) Creatinine 1.0 mg/dL (0.7-1.3) 1.1 mg/dL (0.7-1.3) Estimated GFR (Cockcroft-Gault) 72.8 65.3 Glucose Level 100 mg/dL (70-99) 111 mg/dL (70-99) Calcium Level 8.9 mg/dL (8.5-10.1) 8.2 mg/dL (8.5-10.1) Magnesium Level 2.2 mg/dL (1.8-2.4) Laboratory Tests Test 09/21/18 03:55 White Blood Count 4.8 x10^3/uL (4.0-11.0) Red Blood Count 4.00 x10^6/uL (4.30-5.70) Hemoglobin 12.0 g/dL (13.0-17.5) Hematocrit 35.8 % (39.0-53.0) Mean Corpuscular Volume 89 fL (79-100) Mean Corpuscular Hemoglobin 30 pg (25-35) Mean Corpuscular Hemoglobin Concent 34 g/dL (31-37) Red Cell Distribution Width 14.8 % (11.5-14.5) Platelet Count 121 x10^3/uL (140-400) Neutrophils (%) (Auto) 72 % (31-73) Lymphocytes (%) (Auto) 12 % (24-48) Monocytes (%) (Auto) 15 % (0-9) Eosinophils (%) (Auto) 1 % (0-3) Basophils (%) (Auto) 0 % (0-3) Neutrophils # (Auto) 3.5 x10^3uL (1.8-7.7) Lymphocytes # (Auto) 0.6 x10^3/uL (1.0-4.8) Monocytes # (Auto) 0.7 x10^3/uL (0.0-1.1) Eosinophils # (Auto) 0.1 x10^3/uL (0.0-0.7) Basophils # (Auto) 0.0 x10^3/uL (0.0-0.2) Sodium Level 133 mmol/L (136-145) Potassium Level 4.2 mmol/L (3.5-5.1) Chloride Level 98 mmol/L (98-107) Carbon Dioxide Level 27 mmol/L (21-32) Anion Gap 8 (6-14) Blood Urea Nitrogen 34 mg/dL (8-26) Creatinine 1.1 mg/dL (0.7-1.3) Estimated GFR (Cockcroft-Gault) 65.3 Glucose Level 111 mg/dL (70-99) Calcium Level 8.2 mg/dL (8.5-10.1) Medications Current Medications Adenosine (Adenocard) 6 mg STK-MED ONCE IV ; Start 09/11/18 at 10:13; Stop 09/11/18 at 10:14; Status DC Adenosine (Adenocard) 12 mg 1X ONCE IV ; Start 09/11/18 at 10:15; Stop 09/11/18 at 10:17; Status DC Sodium Chloride 1,000 ml @ 1,000 mls/hr Q1H IV Last administered on 09/11/18at 10:42; Start 09/11/18 at 10:13; Stop 09/11/18 at 11:12; Status DC Adenosine (Adenocard) 6 mg 1X ONCE IV ; Start 09/11/18 at 10:15; Stop 09/11/18 at 10:17; Status DC Ondansetron HCl (Zofran) 4 mg 1X ONCE IV Last administered on 09/11/18at 10:46; Start 09/11/18 at 10:45; Stop 09/11/18 at 10:46; Status DC Potassium Chloride (Klor-Con) 40 meq 1X ONCE PO Last administered on 09/11/18at 13:01; Start 09/11/18 at 11:15; Stop 09/11/18 at 11:16; Status DC Aspirin (Ecotrin) 81 mg DAILY PO Last administered on 09/21/18at 08:10; Start 09/11/18 at 13:00 Metoprolol Succinate (Toprol Xl) 25 mg HS PO ; Start 09/11/18 at 21:00; Stop 09/11/18 at 21:00; Status DC Ondansetron HCl (Zofran Odt) 4 mg PRN Q6HRS PRN PO NAUSEA/VOMITING Last administered on 09/20/18at 00:35; Start 09/11/18 at 13:00 Pantoprazole Sodium (Protonix) 40 mg DAILYAC PO Last administered on 09/13/18at 09:36; Start 09/11/18 at 13:00; Stop 09/14/18 at 11:54; Status DC Simvastatin (Zocor) 40 mg QHS PO Last administered on 09/11/18at 20:46; Start 09/11/18 at 21:00; Stop 09/12/18 at 15:50; Status DC Ondansetron HCl (Zofran) 4 mg STK-MED ONCE .ROUTE ; Start 09/11/18 at 10:46; Stop 09/11/18 at 12:12; Status DC Sodium Chloride 1,000 ml @ 100 mls/hr 1X ONCE IV Last administered on 09/11/18at 13:04; Start 09/11/18 at 12:45; Stop 09/11/18 at 22:44; Status DC Iohexol (Omnipaque 240 Mg/ml) 50 ml 1X ONCE PO Last administered on 09/11/18at 14:40; Start 09/11/18 at 13:15; Stop 09/11/18 at 13:23; Status DC Iohexol (Omnipaque 300 Mg/ml) 75 ml 1X ONCE IV Last administered on 09/11/18at 14:40; Start 09/11/18 at 13:15; Stop 09/11/18 at 13:23; Status DC Info (CONTRAST GIVEN -- Rx MONITORING) 1 each PRN DAILY PRN MC SEE COMMENTS; Start 09/11/18 at 13:30; Stop 09/13/18 at 13:29; Status DC Ondansetron HCl (Zofran) 4 mg PRN Q6HRS PRN IV NAUSEA/VOMITING 1ST CHOICE Last administered on 09/17/18at 08:30; Start 09/11/18 at 15:00; Stop 09/19/18 at 20:22; Status DC Prochlorperazine Edisylate (Compazine) 10 mg PRN Q6HRS PRN IV NAUSEA/VOMITING 2ND CHOICE Last administered on 09/17/18at 09:48; Start 09/11/18 at 15:00; Stop 09/18/18 at 16:57; Status DC Metoprolol Succinate (Toprol Xl) 50 mg HS PO Last administered on 09/12/18at 20:30; Start 09/11/18 at 21:00; Stop 09/14/18 at 14:39; Status DC Morphine Sulfate (Morphine Sulfate) 2 mg PRN Q4HRS PRN IV MODERATE-SEVERE PAIN Last administered on 09/18/18 21:33; Start 09/11/18 at 17:45; Stop 09/19/18 at 08:56; Status DC Acetaminophen/ Hydrocodone Bitart (Lortab 5/325) 1 tab PRN Q6HRS PRN PO PAIN Last administered on 09/19/18 20:42; Start 09/11/18 at 17:45 Tamsulosin HCl (Flomax) 0.4 mg DAILY PO ; Start 09/12/18 at 10:00; Stop 09/12/18 at 10:37; Status DC Polyethylene Glycol (miraLAX PACKET) 17 gm PRN DAILY PRN PO CONSTIPATION Last administered on 09/18/18 09:13; Start 09/12/18 at 09:15 Ketorolac Tromethamine (Toradol 30mg Vial) 30 mg PRN Q6HRS PRN IV MILD PAIN Last administered on 09/17/18 09:49; Start 09/12/18 at 10:15; Stop 09/17/18 at 10:14; Status DC Meclizine HCl (Antivert) 12.5 mg PRN Q6HRS PRN PO DIZZINESS Last administered on 09/17/18 08:30; Start 09/12/18 at 11:15 Sodium Monofluorophosphate (Fleet Adult) 133 ml 1X ONCE [place] Last administered on 09/12/18 16:13; Start 09/12/18 at 14:45; Stop 09/12/18 at 14:46; Status DC Magnesium Citrate (Citroma) 296 ml 1X ONCE PO Last administered on 09/12/18 16:12; Start 09/12/18 at 16:00; Stop 09/12/18 at 16:01; Status DC Erythromycin (E-Mycin) 500 mg TID PO Last administered on 09/13/18 09:39; Start 09/12/18 at 15:00; Stop 09/14/18 at 11:39; Status DC Neomycin Sulfate (Neomycin Sulfate) 500 mg TID PO Last administered on 09/13/18 09:39; Start 09/12/18 at 16:00; Stop 09/14/18 at 11:39; Status DC Cefoxitin Sodium (Mefoxin) 2 gm 1X PERIOP ONCE IVP Last administered on 09/13/18at 12:40; Start 09/13/18 at 12:00; Stop 09/13/18 at 12:01; Status DC Atorvastatin Calcium (Lipitor) 20 mg QHS PO Last administered on 09/20/18at 20:50; Start 09/12/18 at 21:00 Ondansetron HCl (Zofran) 4 mg PRN Q6HRS PRN IV NAUSEA/VOMITING; Start 09/13/18 at 07:00; Stop 09/14/18 at 06:59; Status DC Fentanyl Citrate (Fentanyl 2ml Vial) 25 mcg PRN Q5MIN PRN IV MILD PAIN; Start 09/13/18 at 07:00; Stop 09/14/18 at 06:59; Status DC Fentanyl Citrate (Fentanyl 2ml Vial) 50 mcg PRN Q5MIN PRN IV MODERATE TO SEVERE PAIN; Start 09/13/18 at 07:00; Stop 09/14/18 at 06:59; Status DC Morphine Sulfate (Morphine Sulfate) 1 mg PRN Q10MIN PRN IV SEVERE PAIN; Start 09/13/18 at 07:00; Stop 09/14/18 at 06:59; Status DC Ringer's Solution 1,000 ml @ 30 mls/hr Q24H IV Last administered on 09/13/18at 06:32; Start 09/13/18 at 07:00; Stop 09/13/18 at 16:44; Status DC Lidocaine HCl (Xylocaine-Mpf 1% 2ml Vial) 2 ml PRN 1X PRN ID PRIOR TO IV START; Start 09/13/18 at 07:00; Stop 09/14/18 at 06:59; Status DC Hydromorphone HCl (Dilaudid) 0.5 mg PRN Q10MIN PRN IV SEV PAIN, Second choice; Start 09/13/18 at 07:00; Stop 09/14/18 at 06:59; Status DC Prochlorperazine Edisylate (Compazine) 5 mg PACU PRN PRN IV NAUSEA, MRX1; Start 09/13/18 at 07:00; Stop 09/14/18 at 06:59; Status DC Lorazepam (Ativan) 0.5 mg PRN Q6HRS PRN IV ANXIETY / AGITATION Last administered on 09/19/18at 00:08; Start 09/12/18 at 19:45 Bupivacaine HCl/ Epinephrine Bitart (Sensorcain-Mpf Epi 0.5%-[id number]) 30 ml STK-MED ONCE .ROUTE Last administered on 09/13/18at 13:10; Start 09/13/18 at 10:55; Stop 09/13/18 at 11:55; Status DC Rocuronium Angora (Zemuron) 50 mg STK-MED ONCE .ROUTE ; Start 09/13/18 at 12:09; Stop 09/13/18 at 12:10; Status DC Midazolam HCl (Versed) 2 mg STK-MED ONCE .ROUTE ; Start 09/13/18 at 12:09; Stop 09/13/18 at 12:10; Status DC Fentanyl Citrate (Fentanyl 5ml Vial) 250 mcg STK-MED ONCE .ROUTE ; Start 09/13/18 at 12:09; Stop 09/13/18 at 12:10; Status DC Propofol 20 ml @ As Directed STK-MED ONCE IV ; Start 09/13/18 at 12:11; Stop 09/13/18 at 12:12; Status DC Lidocaine HCl (Lidocaine Pf 2% Vial) 5 ml STK-MED ONCE .ROUTE ; Start 09/13/18 at 12:11; Stop 09/13/18 at 12:12; Status DC Ondansetron HCl (Zofran) 4 mg STK-MED ONCE .ROUTE ; Start 09/13/18 at 12:11; Stop 09/13/18 at 12:12; Status DC Dexamethasone Sodium Phosphate (Decadron) 4 mg STK-MED ONCE .ROUTE ; Start 09/13/18 at 12:11; Stop 09/13/18 at 12:12; Status DC Cefoxitin Sodium (Mefoxin) 2 gm 1X ONCE IVP Last administered on 09/13/18at 14:40; Start 09/13/18 at 12:15; Stop 09/13/18 at 12:16; Status DC Ephedrine Sulfate (ePHEDrine PF IN SALINE SYRINGE) 50 mg STK-MED ONCE IV ; Start 09/13/18 at 12:51; Stop 09/13/18 at 12:52; Status DC Phenylephrine HCl (PHENYLEPHRINE in 0.9% NACL PF) 1 mg STK-MED ONCE IV ; Start 09/13/18 at 12:51; Stop 09/13/18 at 12:52; Status DC Rocuronium Angora (Zemuron) 50 mg STK-MED ONCE .ROUTE ; Start 09/13/18 at 13:36; Stop 09/13/18 at 13:37; Status DC Fentanyl Citrate (Fentanyl 5ml Vial) 250 mcg STK-MED ONCE .ROUTE ; Start 09/13/18 at 13:51; Stop 09/13/18 at 13:52; Status DC Neostigmine Methylsulfate (Neostigmine Methylsulfate) 5 mg STK-MED ONCE .ROUTE ; Start 09/13/18 at 13:57; Stop 09/13/18 at 13:58; Status DC Glycopyrrolate (Robinul) 1 mg STK-MED ONCE .ROUTE ; Start 09/13/18 at 13:57; Stop 09/13/18 at 13:58; Status DC Esmolol HCl (Brevibloc) 100 mg STK-MED ONCE IVP ; Start 09/13/18 at 14:00; Stop 09/13/18 at 14:01; Status DC Sevoflurane (Ultane) 90 ml STK-MED ONCE IH ; Start 09/13/18 at 14:19; Stop 09/13/18 at 14:20; Status DC Enoxaparin Sodium (Lovenox 40mg Syringe) 40 mg Q24H SQ ; Start 09/13/18 at 16:00; Status Cancel Sodium Chloride (Normal Saline Flush) 3 ml QSHIFT PRN IV AFTER MEDS AND BLOOD DRAWS; Start 09/13/18 at 15:15 Ringer's Solution 1,000 ml @ 100 mls/hr Q10H IV Last administered on 09/14/18at 01:04; Start 09/13/18 at 15:04; Stop 09/14/18 at 11:39; Status DC Naloxone HCl (Narcan) 0.4 mg PRN Q2MIN PRN IV SEE INSTRUCTIONS; Start 09/13/18 at 15:15 Sodium Chloride 1,000 ml @ 25 mls/hr Q24H IV ; Start 09/13/18 at 15:04; Stop 09/16/18 at 10:36; Status DC Morphine Sulfate 30 ml @ 0 mls/hr CONT PRN PRN IV PER PROTOCOL; Start 09/13/18 at 15:15; Stop 09/19/18 at 08:56; Status DC Lidocaine HCl (Lidocaine HCl 2% Abboject) 100 mg STK-MED ONCE .ROUTE ; Start 09/13/18 at 15:35; Stop 09/13/18 at 15:36; Status DC Lidocaine HCl (Lidocaine HCl 2% Abboject) 100 mg 1X ONCE IV Last administered on 09/13/18at 15:45; Start 09/13/18 at 15:45; Stop 09/13/18 at 15:46; Status DC Enoxaparin Sodium (Lovenox 40mg Syringe) 40 mg Q24H SQ Last administered on 09/21/18at 08:11; Start 09/14/18 at 09:00 Metoprolol Tartrate (Lopressor Vial) 5 mg Q8HRS IVP Last administered on 09/15/18at 05:48; Start 09/14/18 at 06:00; Stop 09/15/18 at 10:30; Status DC Metoprolol Tartrate (Lopressor Vial) 5 mg 1X ONCE IVP Last administered on 09/13/18at 18:42; Start 09/13/18 at 18:45; Stop 09/13/18 at 18:46; Status DC Amino Acids/ Glycerin/ Electrolytes 1,000 ml @ 75 mls/hr [id number] IV Last administered on 09/18/18at 17:19; Start 09/14/18 at 11:45 Pantoprazole Sodium (PROTONIX VIAL for IV PUSH) 40 mg DAILYAC IVP Last administered on 09/16/18at 08:38; Start 09/15/18 at 07:30; Stop 09/16/18 at 10:36; Status DC Pantoprazole Sodium (PROTONIX VIAL for IV PUSH) 40 mg 1X ONCE IVP Last ad ministered on 09/14/18at 12:04; Start 09/14/18 at 12:00; Stop 09/14/18 at 12:01; Status DC Metoprolol Tartrate (Lopressor Vial) 5 mg PRN Q4HRS PRN IVP TACHYCARDIA Last administered on 09/20/18at 06:44; Start 09/15/18 at 10:30 Metoprolol Succinate (Toprol Xl) 25 mg BID PO Last administered on 09/15/18at 20:30; Start 09/15/18 at 12:00; Stop 09/16/18 at 10:48; Status DC Pantoprazole Sodium (Protonix) 40 mg DAILYAC PO Last administered on 09/21/18at 06:09; Start 09/17/18 at 07:30 Metoprolol Succinate (Toprol Xl) 25 mg Q6HRS PO Last administered on 09/21/18 06:09; Start 09/16/18 at 12:00 Prochlorperazine Edisylate (Compazine) 10 mg PRN Q8HRS PRN IV NAUSEA/VOMITING 2ND CHOICE Last administered on 09/18/18 17:18; Start 09/16/18 at 15:15 Trazodone HCl (Desyrel) 50 mg QHS PO Last administered on 09/20/18at 20:50; Start 09/17/18 at 21:00 Bisacodyl (Dulcolax Supp) 10 mg PRN DAILY PRN [place] CONSTIPATION Last administered on 09/21/18at 03:05; Start 09/19/18 at 11:45 Ondansetron HCl (Zofran) 8 mg PRN Q8HRS PRN IV NAUSEA/VOMITING 1ST CHOICE; Start 09/19/18 at 20:30 Promethazine HCl (Phenergan) 12.5 mg PRN Q6HRS PRN PO NAUSEA/VOMITING Last administered on 09/19/18at 20:40; Start 09/19/18 at 20:30 Prochlorperazine Edisylate (Compazine) 10 mg PRN Q6HRS PRN IV NAUSEA/VOMITING; Start 09/19/18 at 20:30 Lorazepam (Ativan) 1 mg PRN Q6HRS PRN PO ANXIETY / AGITATION; Start 09/19/18 at 20:45 Digoxin (Lanoxin) 500 mcg 1X ONCE IV Last administered on 09/20/18at 08:34; Start 09/20/18 at 08:30; Stop 09/20/18 at 08:31; Status DC Amiodarone HCl 150 mg/Dextrose 103 ml @ 600 mls/hr 1X ONCE IV Last administered on 09/20/18at 10:09; Start 09/20/18 at 09:30; Stop 09/20/18 at 09:40; Status DC Amiodarone HCl 900 mg/Dextrose 518 ml @ 0 mls/hr CONT PRN IV SEE I/O RECORD Last administered on 09/20/18at 20:04; Start 09/20/18 at 09:30; Stop 09/21/18 at 09:29 Amiodarone HCl (Cordarone) 200 mg DAILY PO Last administered on 09/21/18at 08:10; Start 09/21/18 at 09:00 Active Scripts Active Ondansetron Odt (Ondansetron) 4 Mg Tab.rapdis 1 Tab PO PRN Q6-8HRS Protonix (Pantoprazole Sodium) 40 Mg Tablet. 1 Tab PO DAILY Reported Zocor (Simvastatin) 40 Mg Tablet 40 Mg PO HS Toprol Xl (Metoprolol Succinate) 25 Mg Tab.er.24h 25 Mg PO HS Aspir 81 (Aspirin) 81 Mg Tablet. 81 Mg PO DAILY Vitals/I & O Vital Sign - Last 24 Hours 09/20/18 09/20/18 09/20/18 09/20/18 09:30 10:09 10:30 11:00 Temp 98.8 98.8 Pulse 106 101 120 93 Resp 16 B/P (MAP) 125/58 (80) 125/58 103/53 (70) 108/51 (70) Pulse Ox 94 O2 Delivery Room Air 09/20/18 09/20/18 09/20/18 09/20/18 11:30 12:09 12:30 13:30 Pulse 94 93 100 90 B/P (MAP) 104/53 (70) 104/53 109/65 (80) 90/47 (61) 09/20/18 09/20/18 09/20/18 09/20/18 14:30 15:00 15:30 16:30 Temp 98.3 98.3 Pulse 90 86 76 88 Resp 16 B/P (MAP) 103/53 (70) 108/51 (70) 85/55 (65) 109/67 (81) Pulse Ox 87 O2 Delivery Room Air 09/20/18 09/20/18 09/20/18 09/20/18 17:30 18:15 18:30 19:20 Pulse 80 86 85 B/P (MAP) 97/74 (82) 108/51 84/49 (61) O2 Delivery Room Air 09/20/18 09/20/18 09/21/18 09/21/18 19:32 22:43 00:11 02:36 Temp 99.1 98.2 97.7 99.1 98.2 97.7 Pulse 82 79 77 76 Resp 18 18 16 B/P (MAP) 108/58 (75) 115/68 (84) 105/66 113/64 (80) Pulse Ox 90 93 93 O2 Delivery Room Air Room Air Room Air 09/21/18 09/21/18 06:09 08:10 Pulse 78 72 B/P (MAP) 116/63 109/64 Intake and Output 09/20/18 09/20/18 09/21/18 15:00 23:00 07:00 Intake Total 0 ml 100 ml Output Total 825 ml Balance 0 ml -725 ml DAQUAN TANG MD September 21, 2018 09:04
[2018-09-21] MEDS: PROMETHAZINE 12.5 MG TABLET. PO PRN ×2 (09:13→19:43)
--- NOTE | 2018-09-21 09:41 | PDOC ---
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 09/21/18 0941: CARDIO Progress Notes Date and Time Date of Service 09/21/2018 Time of Evaluation 0930 Subjective Subjective: No Chest Pain, No shortness of breath, No Palpitations, Other (abd pain controlled) Vitals Vitals Vital Signs Date Time Temp Pulse Resp B/P (MAP) Pulse Ox O2 Delivery O2 Flow Rate FiO2 09/21/18 08:10 72 109/64 09/21/18 02:36 97.7 16 93 Room Air 97.7 09/20/18 07:00 94.0 Weight Weight [ ] Input and Output Intake and Output Intake and Output 09/21/18 07:00 Intake Total 100 ml Output Total 825 ml Balance -725 ml Intake Oral 100 ml Output Urine Total 825 ml # Voids 3 # Bowel Movements 2 Laboratory Labs Laboratory Tests Test 09/21/18 03:55 White Blood Count 4.8 x10^3/uL (4.0-11.0) Red Blood Count 4.00 x10^6/uL (4.30-5.70) Hemoglobin 12.0 g/dL (13.0-17.5) Hematocrit 35.8 % (39.0-53.0) Mean Corpuscular Volume 89 fL (79-100) Mean Corpuscular Hemoglobin 30 pg (25-35) Mean Corpuscular Hemoglobin Concent 34 g/dL (31-37) Red Cell Distribution Width 14.8 % (11.5-14.5) Platelet Count 121 x10^3/uL (140-400) Neutrophils (%) (Auto) 72 % (31-73) Lymphocytes (%) (Auto) 12 % (24-48) Monocytes (%) (Auto) 15 % (0-9) Eosinophils (%) (Auto) 1 % (0-3) Basophils (%) (Auto) 0 % (0-3) Neutrophils # (Auto) 3.5 x10^3uL (1.8-7.7) Lymphocytes # (Auto) 0.6 x10^3/uL (1.0-4.8) Monocytes # (Auto) 0.7 x10^3/uL (0.0-1.1) Eosinophils # (Auto) 0.1 x10^3/uL (0.0-0.7) Basophils # (Auto) 0.0 x10^3/uL (0.0-0.2) Sodium Level 133 mmol/L (136-145) Potassium Level 4.2 mmol/L (3.5-5.1) Chloride Level 98 mmol/L (98-107) Carbon Dioxide Level 27 mmol/L (21-32) Anion Gap 8 (6-14) Blood Urea Nitrogen 34 mg/dL (8-26) Creatinine 1.1 mg/dL (0.7-1.3) Estimated GFR (Cockcroft-Gault) 65.3 Glucose Level 111 mg/dL (70-99) Calcium Level 8.2 mg/dL (8.5-10.1) Physical Exam HEENT: Neck Supple W Full Motion Chest: Symmetric LUNGS: Other (basilar crackles) Heart: S1S2, RRR (SR) Abdomen: Other (abdominal surgical incision) Extremities: No Calf Tenderness Neurology: alert, oriented, follow commands Assessment Assessment 1. PSVT: possible atrial tach, responded well with amiodarone 2. Chilaiditi's syndrome s/p right hemicolectomy: POD#8, pain controlled but anxious 3. CAD s/p PCI/stent to RCA. Stable. CP free. Recent echo with preserved LV systolic function. Patient declined stress test last month as [facility] per record review. Cath 10/2016 with patent stent as noted above. 4. Hypertension; hypotensive this morning. 5. Hyperlipidemia 6. Noncompliance: with appointments. Recommendations 1. Repeat EKG and note QTc. IV bolus this AM, limited PO intake, push fluids. May hold BP meds per BP trend. 2. Change amio to PO, short term therapy till seen by EP as an outpt. 3. Continue secondary prevention 4. Consider MCOT, outpatient ischemic evaluation if pt is to comply. 5. Encourage compliance SOHA SANCHEZ MD 09/21/18 1245: CARDIO Progress Notes Plan Plan Pt. seen and examined. Agree with above Nutrition Aides Teacher note. 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 September 21, 2018 09:41 SOHA SANCHEZ MD September 21, 2018 23:56
[2018-09-21] MEDS ORDERED: IV NORMAL SALINE 500ML BAG 500 ML IV SCH (10:00)
--- NOTE | 2018-09-21 10:17 | EKG ---
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
[2018-09-21 11:00] VITALS: BP 101/65
--- NOTE | 2018-09-21 12:43 | PDOC ---
Objective: Objective: Reviewed w/ RN - tolerating PO, small loose stools, stopped amiodarone drip this morning. Vital Signs: Vital Signs Date Time Temp Pulse Resp B/P (MAP) Pulse Ox O2 Delivery O2 Flow Rate FiO2 09/21/18 11:00 98.1 74 16 101/65 (77) 94 Room Air 98.1 09/21/18 08:00 94.0 Labs: Laboratory Tests Test 09/21/18 03:55 White Blood Count 4.8 x10^3/uL Red Blood Count 4.00 x10^6/uL Hemoglobin 12.0 g/dL Hematocrit 35.8 % Mean Corpuscular Volume 89 fL Mean Corpuscular Hemoglobin 30 pg Mean Corpuscular Hemoglobin Concent 34 g/dL Red Cell Distribution Width 14.8 % Platelet Count 121 x10^3/uL Neutrophils (%) (Auto) 72 % Lymphocytes (%) (Auto) 12 % Monocytes (%) (Auto) 15 % Eosinophils (%) (Auto) 1 % Basophils (%) (Auto) 0 % Neutrophils # (Auto) 3.5 x10^3uL Lymphocytes # (Auto) 0.6 x10^3/uL Monocytes # (Auto) 0.7 x10^3/uL Eosinophils # (Auto) 0.1 x10^3/uL Basophils # (Auto) 0.0 x10^3/uL Sodium Level 133 mmol/L Potassium Level 4.2 mmol/L Chloride Level 98 mmol/L Carbon Dioxide Level 27 mmol/L Anion Gap 8 Blood Urea Nitrogen 34 mg/dL Creatinine 1.1 mg/dL Estimated GFR (Cockcroft-Gault) 65.3 Glucose Level 111 mg/dL Calcium Level 8.2 mg/dL PE: GEN: NAD - staff helping him off commode and cleaning up NEURO/PSYCH: A & O 3 A/P: Chilaiditi's syndrome s/p right hemicolectomy PSVT -- Stable GI-garcia. JORDON RODARTE September 21, 2018 12:43
[2018-09-21] MEDS: ONDANSETRON ODT 4 MG TAB.RAPDIS. PO PRN (14:55)
[2018-09-21 15:00] VITALS: BP 102/56
[2018-09-21 18:45] VITALS: BP 104/60
[2018-09-21] MEDS: ATORVASTATIN CALCIUM 20 MG TABLET PO SCH (21:06)
[2018-09-21] MEDS: METOPROLOL TART IMMED RELEASE 25 MG TABLET. PO SCH (21:06)
[2018-09-21] MEDS: traZODone 50 MG TABLET. PO SCH (21:06)
[2018-09-21 22:27] VITALS: BP 113/65
[2018-09-22] MEDS: ONDANSETRON ODT 4 MG TAB.RAPDIS. PO PRN ×2 (00:45→08:41)
[2018-09-22 03:00] VITALS: BP 104/59
[2018-09-22 04:58] LABS: BASO % 0 % (0-3); EOS # 0.1 x10^3/uL (0.0-0.7); EOS % 1 % (0-3); HEMATOCRIT 35.3 % (39.0-53.0); HEMOGLOBIN 11.8 g/dL (13.0-17.5); LYMPH # 0.7 x10^3/uL (1.0-4.8); LYMPH % 12 % (24-48); MEAN CORPUSCULAR HEMOGLOBIN 30 pg (25-35); MEAN CORPUSCULAR HGB CONC 34 g/dL (31-37); MEAN CORPUSCULAR VOLUME 90 fL (79-100); MONO # 0.8 x10^3/uL (0.0-1.1); MONO % 14 % (0-9); NEUT # 4.2 x10^3uL (1.8-7.7); NEUT % 73 % (31-73); PLATELET COUNT 118 x10^3/uL (140-400); RED BLOOD COUNT 3.94 x10^6/uL (4.30-5.70); WHITE BLOOD COUNT 5.8 x10^3/uL (4.0-11.0)
[2018-09-22 05:23] LABS: CALCIUM 8.2 mg/dL (8.5-10.1); GFR 72.8
[2018-09-22] MEDS: AMINO AC 3%/ELECTROLYTE/GLYCER 1,000 ML IV SCH (06:22)
[2018-09-22] MEDS: PANTOPRAZOLE 40 MG TABLET.DR. PO SCH (06:25)
[2018-09-22 07:00] VITALS: BP 98/58
[2018-09-22] MEDS: ASPIRIN ENTERIC COATED 81 MG TABLET.DR. PO SCH (08:41)
[2018-09-22] MEDS: ENOXAPARIN 40 MG/0.4 ML SYRINGE. SQ SCH (08:41)
[2018-09-22] MEDS: AMIODARONE HCL 200 MG TABLET. PO SCH (08:42)
--- NOTE | 2018-09-22 09:00 | PDOC ---
SURGICAL PROGRESS NOTE Subjective tolerating diet having stools wanting to discharge Vital Signs Vital Signs Date Time Temp Pulse Resp B/P (MAP) Pulse Ox O2 Delivery O2 Flow Rate FiO2 09/22/18 08:42 79 101/62 09/22/18 07:00 98.0 16 100 Room Air 98.0 09/21/18 08:00 94.0 I&O Intake and Output 09/22/18 06:59 # Voids 3 # Bowel Movements 3 General: Alert, Oriented X3, Cooperative Abdomen: Soft, No tenderness Labs Laboratory Tests Test 09/21/18 03:55 09/22/18 04:00 White Blood Count 4.8 x10^3/uL (4.0-11.0) 5.8 x10^3/uL (4.0-11.0) Red Blood Count 4.00 x10^6/uL (4.30-5.70) 3.94 x10^6/uL (4.30-5.70) Hemoglobin 12.0 g/dL (13.0-17.5) 11.8 g/dL (13.0-17.5) Hematocrit 35.8 % (39.0-53.0) 35.3 % (39.0-53.0) Mean Corpuscular Volume 89 fL (79-100) 90 fL (79-100) Mean Corpuscular Hemoglobin 30 pg (25-35) 30 pg (25-35) Mean Corpuscular Hemoglobin Concent 34 g/dL (31-37) 34 g/dL (31-37) Red Cell Distribution Width 14.8 % (11.5-14.5) 15.0 % (11.5-14.5) Platelet Count 121 x10^3/uL (140-400) 118 x10^3/uL (140-400) Neutrophils (%) (Auto) 72 % (31-73) 73 % (31-73) Lymphocytes (%) (Auto) 12 % (24-48) 12 % (24-48) Monocytes (%) (Auto) 15 % (0-9) 14 % (0-9) Eosinophils (%) (Auto) 1 % (0-3) 1 % (0-3) Basophils (%) (Auto) 0 % (0-3) 0 % (0-3) Neutrophils # (Auto) 3.5 x10^3uL (1.8-7.7) 4.2 x10^3uL (1.8-7.7) Lymphocytes # (Auto) 0.6 x10^3/uL (1.0-4.8) 0.7 x10^3/uL (1.0-4.8) Monocytes # (Auto) 0.7 x10^3/uL (0.0-1.1) 0.8 x10^3/uL (0.0-1.1) Eosinophils # (Auto) 0.1 x10^3/uL (0.0-0.7) 0.1 x10^3/uL (0.0-0.7) Basophils # (Auto) 0.0 x10^3/uL (0.0-0.2) 0.0 x10^3/uL (0.0-0.2) Sodium Level 133 mmol/L (136-145) 135 mmol/L (136-145) Potassium Level 4.2 mmol/L (3.5-5.1) 4.0 mmol/L (3.5-5.1) Chloride Level 98 mmol/L (98-107) 101 mmol/L (98-107) Carbon Dioxide Level 27 mmol/L (21-32) 27 mmol/L (21-32) Anion Gap 8 (6-14) 7 (6-14) Blood Urea Nitrogen 34 mg/dL (8-26) 24 mg/dL (8-26) Creatinine 1.1 mg/dL (0.7-1.3) 1.0 mg/dL (0.7-1.3) Estimated GFR (Cockcroft-Gault) 65.3 72.8 Glucose Level 111 mg/dL (70-99) 108 mg/dL (70-99) Calcium Level 8.2 mg/dL (8.5-10.1) 8.2 mg/dL (8.5-10.1) Laboratory Tests Test 09/22/18 04:00 White Blood Count 5.8 x10^3/uL (4.0-11.0) Red Blood Count 3.94 x10^6/uL (4.30-5.70) Hemoglobin 11.8 g/dL (13.0-17.5) Hematocrit 35.3 % (39.0-53.0) Mean Corpuscular Volume 90 fL (79-100) Mean Corpuscular Hemoglobin 30 pg (25-35) Mean Corpuscular Hemoglobin Concent 34 g/dL (31-37) Red Cell Distribution Width 15.0 % (11.5-14.5) Platelet Count 118 x10^3/uL (140-400) Neutrophils (%) (Auto) 73 % (31-73) Lymphocytes (%) (Auto) 12 % (24-48) Monocytes (%) (Auto) 14 % (0-9) Eosinophils (%) (Auto) 1 % (0-3) Basophils (%) (Auto) 0 % (0-3) Neutrophils # (Auto) 4.2 x10^3uL (1.8-7.7) Lymphocytes # (Auto) 0.7 x10^3/uL (1.0-4.8) Monocytes # (Auto) 0.8 x10^3/uL (0.0-1.1) Eosinophils # (Auto) 0.1 x10^3/uL (0.0-0.7) Basophils # (Auto) 0.0 x10^3/uL (0.0-0.2) Sodium Level 135 mmol/L (136-145) Potassium Level 4.0 mmol/L (3.5-5.1) Chloride Level 101 mmol/L (98-107) Carbon Dioxide Level 27 mmol/L (21-32) Anion Gap 7 (6-14) Blood Urea Nitrogen 24 mg/dL (8-26) Creatinine 1.0 mg/dL (0.7-1.3) Estimated GFR (Cockcroft-Gault) 72.8 Glucose Level 108 mg/dL (70-99) Calcium Level 8.2 mg/dL (8.5-10.1) Problem List Problems Medical Problems: (1) Hypokalemia Status: Acute Assessment/Plan supportive measures HANNAH Mathis APRN September 22, 2018 09:00
--- NOTE | 2018-09-22 10:03 | PDOC ---
PROGRESS NOTES Chief Complaint Chief Complaint Postop day 7 colon resection Chilaiditi's syndrome s/p right hemicolectomy PSVT RLQ pain/R flank pain nephrolithiasis L renal cyst GERD HLD HTN OA hx of ND Prior back surgery 36 min pt exam, chart review, > 50% of time spent with exam, chart review, pt care coordination bolus of amiodarone this AM History of Present Illness History of Present Illness Patient seen and examined Would site clean and intact S/P partial colon resection p.o. day 6 Denies having BM or flatus IV morphine discontinued Discussed with nurse Vitals Vitals Vital Signs Date Time Temp Pulse Resp B/P (MAP) Pulse Ox O2 Delivery O2 Flow Rate FiO2 09/22/18 08:42 79 101/62 09/22/18 07:00 98.0 16 100 Room Air 98.0 09/21/18 08:00 94.0 Physical Exam General: Alert, Oriented X3, Cooperative, No acute distress Heart: Regular rate, Normal S1, Normal S2, Other (2/6 systolic murmur, intermittant SVT) Lungs: Clear Abdomen: Normal bowel sounds, Soft, No tenderness Extremities: No clubbing, No cyanosis Skin: No rashes, No breakdown Labs LABS Laboratory Tests Test 09/22/18 04:00 White Blood Count 5.8 x10^3/uL (4.0-11.0) Red Blood Count 3.94 x10^6/uL (4.30-5.70) Hemoglobin 11.8 g/dL (13.0-17.5) Hematocrit 35.3 % (39.0-53.0) Mean Corpuscular Volume 90 fL (79-100) Mean Corpuscular Hemoglobin 30 pg (25-35) Mean Corpuscular Hemoglobin Concent 34 g/dL (31-37) Red Cell Distribution Width 15.0 % (11.5-14.5) Platelet Count 118 x10^3/uL (140-400) Neutrophils (%) (Auto) 73 % (31-73) Lymphocytes (%) (Auto) 12 % (24-48) Monocytes (%) (Auto) 14 % (0-9) Eosinophils (%) (Auto) 1 % (0-3) Basophils (%) (Auto) 0 % (0-3) Neutrophils # (Auto) 4.2 x10^3uL (1.8-7.7) Lymphocytes # (Auto) 0.7 x10^3/uL (1.0-4.8) Monocytes # (Auto) 0.8 x10^3/uL (0.0-1.1) Eosinophils # (Auto) 0.1 x10^3/uL (0.0-0.7) Basophils # (Auto) 0.0 x10^3/uL (0.0-0.2) Sodium Level 135 mmol/L (136-145) Potassium Level 4.0 mmol/L (3.5-5.1) Chloride Level 101 mmol/L (98-107) Carbon Dioxide Level 27 mmol/L (21-32) Anion Gap 7 (6-14) Blood Urea Nitrogen 24 mg/dL (8-26) Creatinine 1.0 mg/dL (0.7-1.3) Estimated GFR (Cockcroft-Gault) 72.8 Glucose Level 108 mg/dL (70-99) Calcium Level 8.2 mg/dL (8.5-10.1) Assessment and Plan Assessmemt and Plan Problems Medical Problems: (1) Hypokalemia Status: Acute Comment Review of Relevant I have reviewed the following items jensen (where applicable) has been applied. Labs Laboratory Tests Test 09/21/18 03:55 09/22/18 04:00 White Blood Count 4.8 x10^3/uL (4.0-11.0) 5.8 x10^3/uL (4.0-11.0) Red Blood Count 4.00 x10^6/uL (4.30-5.70) 3.94 x10^6/uL (4.30-5.70) Hemoglobin 12.0 g/dL (13.0-17.5) 11.8 g/dL (13.0-17.5) Hematocrit 35.8 % (39.0-53.0) 35.3 % (39.0-53.0) Mean Corpuscular Volume 89 fL (79-100) 90 fL (79-100) Mean Corpuscular Hemoglobin 30 pg (25-35) 30 pg (25-35) Mean Corpuscular Hemoglobin Concent 34 g/dL (31-37) 34 g/dL (31-37) Red Cell Distribution Width 14.8 % (11.5-14.5) 15.0 % (11.5-14.5) Platelet Count 121 x10^3/uL (140-400) 118 x10^3/uL (140-400) Neutrophils (%) (Auto) 72 % (31-73) 73 % (31-73) Lymphocytes (%) (Auto) 12 % (24-48) 12 % (24-48) Monocytes (%) (Auto) 15 % (0-9) 14 % (0-9) Eosinophils (%) (Auto) 1 % (0-3) 1 % (0-3) Basophils (%) (Auto) 0 % (0-3) 0 % (0-3) Neutrophils # (Auto) 3.5 x10^3uL (1.8-7.7) 4.2 x10^3uL (1.8-7.7) Lymphocytes # (Auto) 0.6 x10^3/uL (1.0-4.8) 0.7 x10^3/uL (1.0-4.8) Monocytes # (Auto) 0.7 x10^3/uL (0.0-1.1) 0.8 x10^3/uL (0.0-1.1) Eosinophils # (Auto) 0.1 x10^3/uL (0.0-0.7) 0.1 x10^3/uL (0.0-0.7) Basophils # (Auto) 0.0 x10^3/uL (0.0-0.2) 0.0 x10^3/uL (0.0-0.2) Sodium Level 133 mmol/L (136-145) 135 mmol/L (136-145) Potassium Level 4.2 mmol/L (3.5-5.1) 4.0 mmol/L (3.5-5.1) Chloride Level 98 mmol/L (98-107) 101 mmol/L (98-107) Carbon Dioxide Level 27 mmol/L (21-32) 27 mmol/L (21-32) Anion Gap 8 (6-14) 7 (6-14) Blood Urea Nitrogen 34 mg/dL (8-26) 24 mg/dL (8-26) Creatinine 1.1 mg/dL (0.7-1.3) 1.0 mg/dL (0.7-1.3) Estimated GFR (Cockcroft-Gault) 65.3 72.8 Glucose Level 111 mg/dL (70-99) 108 mg/dL (70-99) Calcium Level 8.2 mg/dL (8.5-10.1) 8.2 mg/dL (8.5-10.1) Laboratory Tests Test 09/22/18 04:00 White Blood Count 5.8 x10^3/uL (4.0-11.0) Red Blood Count 3.94 x10^6/uL (4.30-5.70) Hemoglobin 11.8 g/dL (13.0-17.5) Hematocrit 35.3 % (39.0-53.0) Mean Corpuscular Volume 90 fL (79-100) Mean Corpuscular Hemoglobin 30 pg (25-35) Mean Corpuscular Hemoglobin Concent 34 g/dL (31-37) Red Cell Distribution Width 15.0 % (11.5-14.5) Platelet Count 118 x10^3/uL (140-400) Neutrophils (%) (Auto) 73 % (31-73) Lymphocytes (%) (Auto) 12 % (24-48) Monocytes (%) (Auto) 14 % (0-9) Eosinophils (%) (Auto) 1 % (0-3) Basophils (%) (Auto) 0 % (0-3) Neutrophils # (Auto) 4.2 x10^3uL (1.8-7.7) Lymphocytes # (Auto) 0.7 x10^3/uL (1.0-4.8) Monocytes # (Auto) 0.8 x10^3/uL (0.0-1.1) Eosinophils # (Auto) 0.1 x10^3/uL (0.0-0.7) Basophils # (Auto) 0.0 x10^3/uL (0.0-0.2) Sodium Level 135 mmol/L (136-145) Potassium Level 4.0 mmol/L (3.5-5.1) Chloride Level 101 mmol/L (98-107) Carbon Dioxide Level 27 mmol/L (21-32) Anion Gap 7 (6-14) Blood Urea Nitrogen 24 mg/dL (8-26) Creatinine 1.0 mg/dL (0.7-1.3) Estimated GFR (Cockcroft-Gault) 72.8 Glucose Level 108 mg/dL (70-99) Calcium Level 8.2 mg/dL (8.5-10.1) Medications Current Medications Adenosine (Adenocard) 6 mg STK-MED ONCE IV ; Start 09/11/18 at 10:13; Stop 09/11/18 at 10:14; Status DC Adenosine (Adenocard) 12 mg 1X ONCE IV ; Start 09/11/18 at 10:15; Stop 09/11/18 at 10:17; Status DC Sodium Chloride 1,000 ml @ 1,000 mls/hr Q1H IV Last administered on 09/11/18at 10:42; Start 09/11/18 at 10:13; Stop 09/11/18 at 11:12; Status DC Adenosine (Adenocard) 6 mg 1X ONCE IV ; Start 09/11/18 at 10:15; Stop 09/11/18 at 10:17; Status DC Ondansetron HCl (Zofran) 4 mg 1X ONCE IV Last administered on 09/11/18at 10:46; Start 09/11/18 at 10:45; Stop 09/11/18 at 10:46; Status DC Potassium Chloride (Klor-Con) 40 meq 1X ONCE PO Last administered on 09/11/18at 13:01; Start 09/11/18 at 11:15; Stop 09/11/18 at 11:16; Status DC Aspirin (Ecotrin) 81 mg DAILY PO Last administered on 09/22/18at 08:41; Start 09/11/18 at 13:00 Metoprolol Succinate (Toprol Xl) 25 mg HS PO ; Start 09/11/18 at 21:00; Stop 09/11/18 at 21:00; Status DC Ondansetron HCl (Zofran Odt) 4 mg PRN Q6HRS PRN PO NAUSEA/VOMITING Last administered on 09/22/18at 08:41; Start 09/11/18 at 13:00 Pantoprazole Sodium (Protonix) 40 mg DAILYAC PO Last administered on 09/13/18at 09:36; Start 09/11/18 at 13:00; Stop 09/14/18 at 11:54; Status DC Simvastatin (Zocor) 40 mg QHS PO Last administered on 09/11/18 20:46; Start 09/11/18 at 21:00; Stop 09/12/18 at 15:50; Status DC Ondansetron HCl (Zofran) 4 mg STK-MED ONCE .ROUTE ; Start 09/11/18 at 10:46; Stop 09/11/18 at 12:12; Status DC Sodium Chloride 1,000 ml @ 100 mls/hr 1X ONCE IV Last administered on 09/11/18at 13:04; Start 09/11/18 at 12:45; Stop 09/11/18 at 22:44; Status DC Iohexol (Omnipaque 240 Mg/ml) 50 ml 1X ONCE PO Last administered on 09/11/18at 14:40; Start 09/11/18 at 13:15; Stop 09/11/18 at 13:23; Status DC Iohexol (Omnipaque 300 Mg/ml) 75 ml 1X ONCE IV Last administered on 09/11/18at 14:40; Start 09/11/18 at 13:15; Stop 09/11/18 at 13:23; Status DC Info (CONTRAST GIVEN -- Rx MONITORING) 1 each PRN DAILY PRN MC SEE COMMENTS; Start 09/11/18 at 13:30; Stop 09/13/18 at 13:29; Status DC Ondansetron HCl (Zofran) 4 mg PRN Q6HRS PRN IV NAUSEA/VOMITING 1ST CHOICE Last administered on 09/17/18at 08:30; Start 09/11/18 at 15:00; Stop 09/19/18 at 20:22; Status DC Prochlorperazine Edisylate (Compazine) 10 mg PRN Q6HRS PRN IV NAUSEA/VOMITING 2ND CHOICE Last administered on 09/17/18at 09:48; Start 09/11/18 at 15:00; Stop 09/18/18 at 16:57; Status DC Metoprolol Succinate (Toprol Xl) 50 mg HS PO Last administered on 09/12/18at 20:30; Start 09/11/18 at 21:00; Stop 09/14/18 at 14:39; Status DC Morphine Sulfate (Morphine Sulfate) 2 mg PRN Q4HRS PRN IV MODERATE-SEVERE PAIN Last administered on 09/18/18 21:33; Start 09/11/18 at 17:45; Stop 09/19/18 at 08:56; Status DC Acetaminophen/ Hydrocodone Bitart (Lortab 5/325) 1 tab PRN Q6HRS PRN PO PAIN Last administered on 09/19/18 20:42; Start 09/11/18 at 17:45 Tamsulosin HCl (Flomax) 0.4 mg DAILY PO ; Start 09/12/18 at 10:00; Stop 09/12/18 at 10:37; Status DC Polyethylene Glycol (miraLAX PACKET) 17 gm PRN DAILY PRN PO CONSTIPATION Last administered on 09/18/18 09:13; Start 09/12/18 at 09:15 Ketorolac Tromethamine (Toradol 30mg Vial) 30 mg PRN Q6HRS PRN IV MILD PAIN Last administered on 09/17/18 09:49; Start 09/12/18 at 10:15; Stop 09/17/18 at 10:14; Status DC Meclizine HCl (Antivert) 12.5 mg PRN Q6HRS PRN PO DIZZINESS Last administered on 09/17/18 08:30; Start 09/12/18 at 11:15 Sodium Monofluorophosphate (Fleet Adult) 133 ml 1X ONCE OK Last administered on 09/12/18 16:13; Start 09/12/18 at 14:45; Stop 09/12/18 at 14:46; Status DC Magnesium Citrate (Citroma) 296 ml 1X ONCE PO Last administered on 09/12/18 16:12; Start 09/12/18 at 16:00; Stop 09/12/18 at 16:01; Status DC Erythromycin (E-Mycin) 500 mg TID PO Last administered on 09/13/18 09:39; Start 09/12/18 at 15:00; Stop 09/14/18 at 11:39; Status DC Neomycin Sulfate (Neomycin Sulfate) 500 mg TID PO Last administered on 09/13/18 09:39; Start 09/12/18 at 16:00; Stop 09/14/18 at 11:39; Status DC Cefoxitin Sodium (Mefoxin) 2 gm 1X PERIOP ONCE IVP Last administered on 09/13/18 12:40; Start 09/13/18 at 12:00; Stop 09/13/18 at 12:01; Status DC Atorvastatin Calcium (Lipitor) 20 mg QHS PO Last administered on 09/21/18at 21:06; Start 09/12/18 at 21:00 Ondansetron HCl (Zofran) 4 mg PRN Q6HRS PRN IV NAUSEA/VOMITING; Start 09/13/18 at 07:00; Stop 09/14/18 at 06:59; Status DC Fentanyl Citrate (Fentanyl 2ml Vial) 25 mcg PRN Q5MIN PRN IV MILD PAIN; Start 09/13/18 at 07:00; Stop 09/14/18 at 06:59; Status DC Fentanyl Citrate (Fentanyl 2ml Vial) 50 mcg PRN Q5MIN PRN IV MODERATE TO SEVERE PAIN; Start 09/13/18 at 07:00; Stop 09/14/18 at 06:59; Status DC Morphine Sulfate (Morphine Sulfate) 1 mg PRN Q10MIN PRN IV SEVERE PAIN; Start 09/13/18 at 07:00; Stop 09/14/18 at 06:59; Status DC Ringer's Solution 1,000 ml @ 30 mls/hr Q24H IV Last administered on 09/13/18at 06:32; Start 09/13/18 at 07:00; Stop 09/13/18 at 16:44; Status DC Lidocaine HCl (Xylocaine-Mpf 1% 2ml Vial) 2 ml PRN 1X PRN ID PRIOR TO IV START; Start 09/13/18 at 07:00; Stop 09/14/18 at 06:59; Status DC Hydromorphone HCl (Dilaudid) 0.5 mg PRN Q10MIN PRN IV SEV PAIN, Second choice; Start 09/13/18 at 07:00; Stop 09/14/18 at 06:59; Status DC Prochlorperazine Edisylate (Compazine) 5 mg PACU PRN PRN IV NAUSEA, MRX1; Start 09/13/18 at 07:00; Stop 09/14/18 at 06:59; Status DC Lorazepam (Ativan) 0.5 mg PRN Q6HRS PRN IV ANXIETY / AGITATION Last administered on 09/19/18at 00:08; Start 09/12/18 at 19:45 Bupivacaine HCl/ Epinephrine Bitart (Sensorcain-Mpf Epi 0.5%-1:[id number]) 30 ml STK-MED ONCE .ROUTE Last administered on 09/13/18at 13:10; Start 09/13/18 at 10:55; Stop 09/13/18 at 11:55; Status DC Rocuronium [place] (Zemuron) 50 mg STK-MED ONCE .ROUTE ; Start 09/13/18 at 12:09; Stop 09/13/18 at 12:10; Status DC Midazolam HCl (Versed) 2 mg STK-MED ONCE .ROUTE ; Start 09/13/18 at 12:09; Stop 09/13/18 at 12:10; Status DC Fentanyl Citrate (Fentanyl 5ml Vial) 250 mcg STK-MED ONCE .ROUTE ; Start 09/13/18 at 12:09; Stop 09/13/18 at 12:10; Status DC Propofol 20 ml @ As Directed STK-MED ONCE IV ; Start 09/13/18 at 12:11; Stop 09/13/18 at 12:12; Status DC Lidocaine HCl (Lidocaine Pf 2% Vial) 5 ml STK-MED ONCE .ROUTE ; Start 09/13/18 at 12:11; Stop 09/13/18 at 12:12; Status DC Ondansetron HCl (Zofran) 4 mg STK-MED ONCE .ROUTE ; Start 09/13/18 at 12:11; Stop 09/13/18 at 12:12; Status DC Dexamethasone Sodium Phosphate (Decadron) 4 mg STK-MED ONCE .ROUTE ; Start 09/13/18 at 12:11; Stop 09/13/18 at 12:12; Status DC Cefoxitin Sodium (Mefoxin) 2 gm 1X ONCE IVP Last administered on 09/13/18at 14:40; Start 09/13/18 at 12:15; Stop 09/13/18 at 12:16; Status DC Ephedrine Sulfate (ePHEDrine PF IN SALINE SYRINGE) 50 mg STK-MED ONCE IV ; Start 09/13/18 at 12:51; Stop 09/13/18 at 12:52; Status DC Phenylephrine HCl (PHENYLEPHRINE in 0.9% NACL PF) 1 mg STK-MED ONCE IV ; Start 09/13/18 at 12:51; Stop 09/13/18 at 12:52; Status DC Rocuronium [place] (Zemuron) 50 mg STK-MED ONCE .ROUTE ; Start 09/13/18 at 13:36; Stop 09/13/18 at 13:37; Status DC Fentanyl Citrate (Fentanyl 5ml Vial) 250 mcg STK-MED ONCE .ROUTE ; Start 09/13/18 at 13:51; Stop 09/13/18 at 13:52; Status DC Neostigmine Methylsulfate (Neostigmine Methylsulfate) 5 mg STK-MED ONCE .ROUTE ; Start 09/13/18 at 13:57; Stop 09/13/18 at 13:58; Status DC Glycopyrrolate (Robinul) 1 mg STK-MED ONCE .ROUTE ; Start 09/13/18 at 13:57; Stop 09/13/18 at 13:58; Status DC Esmolol HCl (Brevibloc) 100 mg STK-MED ONCE IVP ; Start 09/13/18 at 14:00; Stop 09/13/18 at 14:01; Status DC Sevoflurane (Ultane) 90 ml STK-MED ONCE IH ; Start 09/13/18 at 14:19; Stop 09/13/18 at 14:20; Status DC Enoxaparin Sodium (Lovenox 40mg Syringe) 40 mg Q24H SQ ; Start 09/13/18 at 16:00; Status Cancel Sodium Chloride (Normal Saline Flush) 3 ml QSHIFT PRN IV AFTER MEDS AND BLOOD DRAWS; Start 09/13/18 at 15:15 Ringer's Solution 1,000 ml @ 100 mls/hr Q10H IV Last administered on 09/14/18at 01:04; Start 09/13/18 at 15:04; Stop 09/14/18 at 11:39; Status DC Naloxone HCl (Narcan) 0.4 mg PRN Q2MIN PRN IV SEE INSTRUCTIONS; Start 09/13/18 at 15:15 Sodium Chloride 1,000 ml @ 25 mls/hr Q24H IV ; Start 09/13/18 at 15:04; Stop 09/16/18 at 10:36; Status DC Morphine Sulfate 30 ml @ 0 mls/hr CONT PRN PRN IV PER PROTOCOL; Start 09/13/18 at 15:15; Stop 09/19/18 at 08:56; Status DC Lidocaine HCl (Lidocaine HCl 2% Abboject) 100 mg STK-MED ONCE .ROUTE ; Start 09/13/18 at 15:35; Stop 09/13/18 at 15:36; Status DC Lidocaine HCl (Lidocaine HCl 2% Abboject) 100 mg 1X ONCE IV Last administered on 09/13/18at 15:45; Start 09/13/18 at 15:45; Stop 09/13/18 at 15:46; Status DC Enoxaparin Sodium (Lovenox 40mg Syringe) 40 mg Q24H SQ Last administered on 09/22/18at 08:41; Start 09/14/18 at 09:00 Metoprolol Tartrate (Lopressor Vial) 5 mg Q8HRS IVP Last administered on 09/15/18at 05:48; Start 09/14/18 at 06:00; Stop 09/15/18 at 10:30; Status DC Metoprolol Tartrate (Lopressor Vial) 5 mg 1X ONCE IVP Last administered on 09/13/18at 18:42; Start 09/13/18 at 18:45; Stop 09/13/18 at 18:46; Status DC Amino Acids/ Glycerin/ Electrolytes 1,000 ml @ 75 mls/hr [id number] IV Last administered on 09/22/18at 06:22; Start 09/14/18 at 11:45 Pantoprazole Sodium (PROTONIX VIAL for IV PUSH) 40 mg DAILYAC IVP Last administered on 09/16/18at 08:38; Start 09/15/18 at 07:30; Stop 09/16/18 at 10:36; Status DC Pantoprazole Sodium (PROTONIX VIAL for IV PUSH) 40 mg 1X ONCE IVP Last administered on 09/14/18at 12:04; Start 09/14/18 at 12:00; Stop 09/14/18 at 12:01; Status DC Metoprolol Tartrate (Lopressor Vial) 5 mg PRN Q4HRS PRN IVP TACHYCARDIA Last administered on 09/20/18at 06:44; Start 09/15/18 at 10:30 Metoprolol Succinate (Toprol Xl) 25 mg BID PO Last administered on 09/15/18at 20:30; Start 09/15/18 at 12:00; Stop 09/16/18 at 10:48; Status DC Pantoprazole Sodium (Protonix) 40 mg DAILYAC PO Last administered on 09/21/18 06:09; Start 09/17/18 at 07:30 Metoprolol Succinate (Toprol Xl) 25 mg Q6HRS PO Last administered on 09/21/18at 06:09; Start 09/16/18 at 12:00; Stop 09/21/18 at 09:39; Status DC Prochlorperazine Edisylate (Compazine) 10 mg PRN Q8HRS PRN IV NAUSEA/VOMITING 2ND CHOICE Last administered on 09/18/18at 17:18; Start 09/16/18 at 15:15; Stop 09/21/18 at 15:52; Status DC Trazodone HCl (Desyrel) 50 mg QHS PO Last administered on 09/21/18at 21:06; Start 09/17/18 at 21:00 Bisacodyl (Dulcolax Supp) 10 mg PRN DAILY PRN OK CONSTIPATION Last administered on 09/21/18at 03:05; Start 09/19/18 at 11:45 Ondansetron HCl (Zofran) 8 mg PRN Q8HRS PRN IV NAUSEA/VOMITING 1ST CHOICE; Start 09/19/18 at 20:30 Promethazine HCl (Phenergan) 12.5 mg PRN Q6HRS PRN PO NAUSEA/VOMITING Last administered on 09/21/18at 19:43; Start 09/19/18 at 20:30 Prochlorperazine Edisylate (Compazine) 10 mg PRN Q6HRS PRN IV NAUSEA/VOMITING; Start 09/19/18 at 20:30 Lorazepam (Ativan) 1 mg PRN Q6HRS PRN PO ANXIETY / AGITATION Last administered on 09/22/18at 00:45; Start 09/19/18 at 20:45 Digoxin (Lanoxin) 500 mcg 1X ONCE IV Last administered on 09/20/18at 08:34; Start 09/20/18 at 08:30; Stop 09/20/18 at 08:31; Status DC Amiodarone HCl 150 mg/Dextrose 103 ml @ 600 mls/hr 1X ONCE IV Last administered on 09/20/18at 10:09; Start 09/20/18 at 09:30; Stop 09/20/18 at 09:40; Status DC Amiodarone HCl 900 mg/Dextrose 518 ml @ 0 mls/hr CONT PRN IV SEE I/O RECORD Last administered on 09/20/18at 20:04; Start 09/20/18 at 09:30; Stop 09/21/18 at 09:29; Status DC Amiodarone HCl (Cordarone) 200 mg DAILY PO Last administered on 09/22/18at 08:42; Start 09/21/18 at 09:00 Sodium Chloride 500 ml @ 75 mls/hr Q6H40M IV Last administered on 09/21/18at 10:00; Start 09/21/18 at 10:00; Stop 09/21/18 at 16:39; Status DC Metoprolol Tartrate (Lopressor) 25 mg BID PO Last administered on 09/21/18at 21:06; Start 09/21/18 at 21:00 Active Scripts Active Ondansetron Odt (Ondansetron) 4 Mg Tab.rapdis 1 Tab PO PRN Q6-8HRS Protonix (Pantoprazole Sodium) 40 Mg Tablet. 1 Tab PO DAILY Reported Zocor (Simvastatin) 40 Mg Tablet 40 Mg PO HS Toprol Xl (Metoprolol Succinate) 25 Mg Tab.er.24h 25 Mg PO HS Aspir 81 (Aspirin) 81 Mg Tablet. 81 Mg PO DAILY Vitals/I & O Vital Sign - Last 24 Hours 09/21/18 09/21/18 09/21/18 09/21/18 11:00 15:00 18:45 18:59 Temp 98.1 97.6 98.1 98.1 97.6 98.1 Pulse 74 66 71 Resp 16 16 18 B/P (MAP) 101/65 (77) 102/56 (71) 104/60 (75) Pulse Ox 94 92 93 O2 Delivery Room Air Room Air Room Air Room Air 09/21/18 09/21/18 09/22/18 09/22/18 21:06 22:27 03:00 07:00 Temp 98.3 98.0 98.0 98.3 98.0 98.0 Pulse 79 81 66 73 Resp 16 20 16 B/P (MAP) 103/63 113/65 (81) 104/59 (74) 98/58 (71) Pulse Ox 94 94 100 O2 Delivery Room Air Room Air Room Air 09/22/18 08:42 Pulse 79 B/P (MAP) 101/62 DAQUAN TANG MD September 22, 2018 10:03
[2018-09-22] MEDS: METOPROLOL TART IMMED RELEASE 25 MG TABLET. PO SCH (10:42)
--- NOTE | 2018-09-22 10:47 | PDOC ---
Subjective: Subjective: Doesn't like the food but says he's eating - RN says not eating much. Pain is better. Bowels moving. Says he might get to leave today. Has been working with therapy. Asks for Zofran for nausea. No dizziness. Objective: Vital Signs: Vital Signs Date Time Temp Pulse Resp B/P (MAP) Pulse Ox O2 Delivery O2 Flow Rate FiO2 09/22/18 08:42 79 101/62 09/22/18 08:00 Room Air 94.0 09/22/18 07:00 98.0 16 100 98.0 Labs: Laboratory Tests Test 09/22/18 04:00 White Blood Count 5.8 x10^3/uL Red Blood Count 3.94 x10^6/uL Hemoglobin 11.8 g/dL Hematocrit 35.3 % Mean Corpuscular Volume 90 fL Mean Corpuscular Hemoglobin 30 pg Mean Corpuscular Hemoglobin Concent 34 g/dL Red Cell Distribution Width 15.0 % Platelet Count 118 x10^3/uL Neutrophils (%) (Auto) 73 % Lymphocytes (%) (Auto) 12 % Monocytes (%) (Auto) 14 % Eosinophils (%) (Auto) 1 % Basophils (%) (Auto) 0 % Neutrophils # (Auto) 4.2 x10^3uL Lymphocytes # (Auto) 0.7 x10^3/uL Monocytes # (Auto) 0.8 x10^3/uL Eosinophils # (Auto) 0.1 x10^3/uL Basophils # (Auto) 0.0 x10^3/uL Sodium Level 135 mmol/L Potassium Level 4.0 mmol/L Chloride Level 101 mmol/L Carbon Dioxide Level 27 mmol/L Anion Gap 7 Blood Urea Nitrogen 24 mg/dL Creatinine 1.0 mg/dL Estimated GFR (Cockcroft-Gault) 72.8 Glucose Level 108 mg/dL Calcium Level 8.2 mg/dL PE: GEN: NAD - RN helping him from commode back to bed LUNGS: room air HEART: RRR ABD: quiet BS, not particularly tender NEURO/PSYCH: A & O 3 A/P: Chilaiditi's syndrome s/p right hemicolectomy Nausea -- DC per primary. JORDON RODARTE September 22, 2018 10:47
[2018-09-22] MEDS ORDERED: ONDANSETRON PF 4 MG/2 ML VIAL. IV PRN (11:00)
[2018-09-22 11:29] VITALS: BP 114/68
--- NOTE | 2018-09-22 11:38 | NUR ---
Pt has been accepted at [facility] and will have a bed available upon dc. Pt's RN has been notified.
--- NOTE | 2018-09-22 14:30 | PDOC3 ---
Discharge Summary Date of Admission: September 11, 2018 Date of Discharge: September 22, 2018 Follow-Up: 1-2 days Admitting Diagnosis comment: discharge dx Postop day 8 colon resection Chilaiditi's syndrome s/p right hemicolectomy PSVT RLQ pain/R flank pain nephrolithiasis L renal cyst GERD HLD HTN OA hx of NC Prior back surgery 38 min pt exam, chart review d/c planning , > 50% of time spent with exam, chart review, pt care coordination bolus of amiodarone this AM History of Present Illness History of Present Illness Patient seen and examined Would site clean and intact S/P partial colon resection p.o. day 6 Denies having BM or flatus IV morphine discontinued Discussed with nurse Vitals Vitals Vital Signs Date Time Temp Pulse Resp B/P (MAP) Pulse Ox O2 Delivery O2 Flow Rate FiO2 09/22/18 08:42 79 101/62 09/22/18 07:00 98.0 16 100 Room Air 98.0 09/21/18 08:00 94.0 Physical Exam General: Alert, Oriented X3, Cooperative, No acute distress Heart: Regular rate, Normal S1, Normal S2, Other (2/6 systolic murmur, intermittant SVT) Lungs: Clear Abdomen: Normal bowel sounds, Soft, No tenderness Extremities: No clubbing, No cyanosis Skin: No rashes, No breakdown FINAL DIAGNOSIS Problems Medical Problems: (1) Hypokalemia Status: Acute Brief Hospital Course Mr. Hobbs is a 73 old [sex] who presented with [colon mass ] CONDITION AT DISCHARGE: Improved Discharge Medications Current Medications Adenosine (Adenocard) 6 mg STK-MED ONCE IV ; Start 09/11/18 at 10:13; Stop 09/11/18 at 10:14; Status DC Adenosine (Adenocard) 12 mg 1X ONCE IV ; Start 09/11/18 at 10:15; Stop 09/11/18 at 10:17; Status DC Sodium Chloride 1,000 ml @ 1,000 mls/hr Q1H IV Last administered on 09/11/18at 10:42; Start 09/11/18 at 10:13; Stop 09/11/18 at 11:12; Status DC Adenosine (Adenocard) 6 mg 1X ONCE IV ; Start 09/11/18 at 10:15; Stop 09/11/18 at 10:17; Status DC Ondansetron HCl (Zofran) 4 mg 1X ONCE IV Last administered on 09/11/18at 10:46; Start 09/11/18 at 10:45; Stop 09/11/18 at 10:46; Status DC Potassium Chloride (Klor-Con) 40 meq 1X ONCE PO Last administered on 09/11/18at 13:01; Start 09/11/18 at 11:15; Stop 09/11/18 at 11:16; Status DC Aspirin (Ecotrin) 81 mg DAILY PO Last administered on 09/22/18at 08:41; Start 09/11/18 at 13:00 Metoprolol Succinate (Toprol Xl) 25 mg HS PO ; Start 09/11/18 at 21:00; Stop 09/11/18 at 21:00; Status DC Ondansetron HCl (Zofran Odt) 4 mg PRN Q6HRS PRN PO NAUSEA/VOMITING Last administered on 09/22/18at 08:41; Start 09/11/18 at 13:00 Pantoprazole Sodium (Protonix) 40 mg DAILYAC PO Last administered on 09/13/18at 09:36; Start 09/11/18 at 13:00; Stop 09/14/18 at 11:54; Status DC Simvastatin (Zocor) 40 mg QHS PO Last administered on 09/11/18at 20:46; Start 09/11/18 at 21:00; Stop 09/12/18 at 15:50; Status DC Ondansetron HCl (Zofran) 4 mg STK-MED ONCE .ROUTE ; Start 09/11/18 at 10:46; Stop 09/11/18 at 12:12; Status DC Sodium Chloride 1,000 ml @ 100 mls/hr 1X ONCE IV Last administered on 09/11/18at 13:04; Start 09/11/18 at 12:45; Stop 09/11/18 at 22:44; Status DC Iohexol (Omnipaque 240 Mg/ml) 50 ml 1X ONCE PO Last administered on 09/11/18at 14:40; Start 09/11/18 at 13:15; Stop 09/11/18 at 13:23; Status DC Iohexol (Omnipaque 300 Mg/ml) 75 ml 1X ONCE IV Last administered on 09/11/18 14:40; Start 09/11/18 at 13:15; Stop 09/11/18 at 13:23; Status DC Info (CONTRAST GIVEN -- Rx MONITORING) 1 each PRN DAILY PRN MC SEE COMMENTS; Start 09/11/18 at 13:30; Stop 09/13/18 at 13:29; Status DC Ondansetron HCl (Zofran) 4 mg PRN Q6HRS PRN IV NAUSEA/VOMITING 1ST CHOICE Last administered on 09/17/18 08:30; Start 09/11/18 at 15:00; Stop 09/19/18 at 20:22; Status DC Prochlorperazine Edisylate (Compazine) 10 mg PRN Q6HRS PRN IV NAUSEA/VOMITING 2ND CHOICE Last administered on 09/17/18 09:48; Start 09/11/18 at 15:00; Stop 09/18/18 at 16:57; Status DC Metoprolol Succinate (Toprol Xl) 50 mg HS PO Last administered on 09/12/18 20:30; Start 09/11/18 at 21:00; Stop 09/14/18 at 14:39; Status DC Morphine Sulfate (Morphine Sulfate) 2 mg PRN Q4HRS PRN IV MODERATE-SEVERE PAIN Last administered on 09/18/18 21:33; Start 09/11/18 at 17:45; Stop 09/19/18 at 08:56; Status DC Acetaminophen/ Hydrocodone Bitart (Lortab 5/325) 1 tab PRN Q6HRS PRN PO PAIN Last administered on 09/19/18at 20:42; Start 09/11/18 at 17:45 Tamsulosin HCl (Flomax) 0.4 mg DAILY PO ; Start 09/12/18 at 10:00; Stop 09/12/18 at 10:37; Status DC Polyethylene Glycol (miraLAX PACKET) 17 gm PRN DAILY PRN PO CONSTIPATION Last administered on 09/18/18 09:13; Start 09/12/18 at 09:15 Ketorolac Tromethamine (Toradol 30mg Vial) 30 mg PRN Q6HRS PRN IV MILD PAIN L ast administered on 09/17/18 09:49; Start 09/12/18 at 10:15; Stop 09/17/18 at 10:14; Status DC Meclizine HCl (Antivert) 12.5 mg PRN Q6HRS PRN PO DIZZINESS Last administered on 09/17/18at 08:30; Start 09/12/18 at 11:15 Sodium Monofluorophosphate (Fleet Adult) 133 ml 1X ONCE MS Last administered on 09/12/18at 16:13; Start 09/12/18 at 14:45; Stop 09/12/18 at 14:46; Status DC Magnesium Citrate (Citroma) 296 ml 1X ONCE PO Last administered on 09/12/18at 16:12; Start 09/12/18 at 16:00; Stop 09/12/18 at 16:01; Status DC Erythromycin (E-Mycin) 500 mg TID PO Last administered on 09/13/18at 09:39; Start 09/12/18 at 15:00; Stop 09/14/18 at 11:39; Status DC Neomycin Sulfate (Neomycin Sulfate) 500 mg TID PO Last administered on 09/13/18at 09:39; Start 09/12/18 at 16:00; Stop 09/14/18 at 11:39; Status DC Cefoxitin Sodium (Mefoxin) 2 gm 1X PERIOP ONCE IVP Last administered on 09/13/18at 12:40; Start 09/13/18 at 12:00; Stop 09/13/18 at 12:01; Status DC Atorvastatin Calcium (Lipitor) 20 mg QHS PO Last administered on 09/21/18at 21:0 6; Start 09/12/18 at 21:00 Ondansetron HCl (Zofran) 4 mg PRN Q6HRS PRN IV NAUSEA/VOMITING; Start 09/13/18 at 07:00; Stop 09/14/18 at 06:59; Status DC Fentanyl Citrate (Fentanyl 2ml Vial) 25 mcg PRN Q5MIN PRN IV MILD PAIN; Start 09/13/18 at 07:00; Stop 09/14/18 at 06:59; Status DC Fentanyl Citrate (Fentanyl 2ml Vial) 50 mcg PRN Q5MIN PRN IV MODERATE TO SEVERE PAIN; Start 09/13/18 at 07:00; Stop 09/14/18 at 06:59; Status DC Morphine Sulfate (Morphine Sulfate) 1 mg PRN Q10MIN PRN IV SEVERE PAIN; Start 09/13/18 at 07:00; Stop 09/14/18 at 06:59; Status DC Ringer's Solution 1,000 ml @ 30 mls/hr Q24H IV Last administered on 09/13/18at 06:32; Start 09/13/18 at 07:00; Stop 09/13/18 at 16:44; Status DC Lidocaine HCl (Xylocaine-Mpf 1% 2ml Vial) 2 ml PRN 1X PRN ID PRIOR TO IV START; Start 09/13/18 at 07:00; Stop 09/14/18 at 06:59; Status DC Hydromorphone HCl (Dilaudid) 0.5 mg PRN Q10MIN PRN IV SEV PAIN, Second choice; Start 09/13/18 at 07:00; Stop 09/14/18 at 06:59; Status DC Prochlorperazine Edisylate (Compazine) 5 mg PACU PRN PRN IV NAUSEA, MRX1; Start 09/13/18 at 07:00; Stop 09/14/18 at 06:59; Status DC Lorazepam (Ativan) 0.5 mg PRN Q6HRS PRN IV ANXIETY / AGITATION Last administered on 09/19/18at 00:08; Start 09/12/18 at 19:45 Bupivacaine HCl/ Epinephrine Bitart (Sensorcain-Mpf Epi 0.5%-[id number]) 30 ml STK-MED ONCE .ROUTE Last administered on 09/13/18at 13:10; Start 09/13/18 at 10:55; Stop 09/13/18 at 11:55; Status DC Rocuronium Iola (Zemuron) 50 mg STK-MED ONCE .ROUTE ; Start 09/13/18 at 12:09; Stop 09/13/18 at 12:10; Status DC Midazolam HCl (Versed) 2 mg STK-MED ONCE .ROUTE ; Start 09/13/18 at 12:09; Stop 09/13/18 at 12:10; Status DC Fentanyl Citrate (Fentanyl 5ml Vial) 250 mcg STK-MED ONCE .ROUTE ; Start 09/13/18 at 12:09; Stop 09/13/18 at 12:10; Status DC Propofol 20 ml @ As Directed STK-MED ONCE IV ; Start 5/8/19 at 12:11; Stop 09/13/18 at 12:12; Status DC Lidocaine HCl (Lidocaine Pf 2% Vial) 5 ml STK-MED ONCE .ROUTE ; Start 09/13/18 at 12:11; Stop 09/13/18 at 12:12; Status DC Ondansetron HCl (Zofran) 4 mg STK-MED ONCE .ROUTE ; Start 09/13/18 at 12:11; Stop 09/13/18 at 12:12; Status DC Dexamethasone Sodium Phosphate (Decadron) 4 mg STK-MED ONCE .ROUTE ; Start 09/13/18 at 12:11; Stop 09/13/18 at 12:12; Status DC Cefoxitin Sodium (Mefoxin) 2 gm 1X ONCE IVP Last administered on 09/13/18at 14:40; Start 09/13/18 at 12:15; Stop 09/13/18 at 12:16; Status DC Ephedrine Sulfate (ePHEDrine PF IN SALINE SYRINGE) 50 mg STK-MED ONCE IV ; Start 09/13/18 at 12:51; Stop 09/13/18 at 12:52; Status DC Phenylephrine HCl (PHENYLEPHRINE in 0.9% NACL PF) 1 mg STK-MED ONCE IV ; Start 09/13/18 at 12:51; Stop 09/13/18 at 12:52; Status DC Rocuronium Iola (Zemuron) 50 mg STK-MED ONCE .ROUTE ; Start 09/13/18 at 13:36; Stop 09/13/18 at 13:37; Status DC Fentanyl Citrate (Fentanyl 5ml Vial) 250 mcg STK-MED ONCE .ROUTE ; Start 09/13/18 at 13:51; Stop 09/13/18 at 13:52; Status DC Neostigmine Methylsulfate (Neostigmine Methylsulfate) 5 mg STK-MED ONCE .ROUTE ; Start 09/13/18 at 13:57; Stop 09/13/18 at 13:58; Status DC Glycopyrrolate (Robinul) 1 mg STK-MED ONCE .ROUTE ; Start 09/13/18 at 13:57; Stop 09/13/18 at 13:58; Status DC Esmolol HCl (Brevibloc) 100 mg STK-MED ONCE IVP ; Start 09/13/18 at 14:00; Stop 09/13/18 at 14:01; Status DC Sevoflurane (Ultane) 90 ml STK-MED ONCE IH ; Start 09/13/18 at 14:19; Stop 09/13/18 at 14:20; Status DC Enoxaparin Sodium (Lovenox 40mg Syringe) 40 mg Q24H SQ ; Start 09/13/18 at 16:00; Status Cancel Sodium Chloride (Normal Saline Flush) 3 ml QSHIFT PRN IV AFTER MEDS AND BLOOD DRAWS; Start 09/13/18 at 15:15 Ringer's Solution 1,000 ml @ 100 mls/hr Q10H IV Last administered on 09/14/18at 01:04; Start 09/13/18 at 15:04; Stop 09/14/18 at 11:39; Status DC Naloxone HCl (Narcan) 0.4 mg PRN Q2MIN PRN IV SEE INSTRUCTIONS; Start 09/13/18 at 15:15 Sodium Chloride 1,000 ml @ 25 mls/hr Q24H IV ; Start 09/13/18 at 15:04; Stop 09/16/18 at 10:36; Status DC Morphine Sulfate 30 ml @ 0 mls/hr CONT PRN PRN IV PER PROTOCOL; Start 09/13/18 at 15:15; Stop 09/19/18 at 08:56; Status DC Lidocaine HCl (Lidocaine HCl 2% Abboject) 100 mg STK-MED ONCE .ROUTE ; Start 09/13/18 at 15:35; Stop 09/13/18 at 15:36; Status DC Lidocaine HCl (Lidocaine HCl 2% Abboject) 100 mg 1X ONCE IV Last administered on 09/13/18at 15:45; Start 09/13/18 at 15:45; Stop 09/13/18 at 15:46; Status DC Enoxaparin Sodium (Lovenox 40mg Syringe) 40 mg Q24H SQ Last administered on 09/22/18at 08:41; Start 09/14/18 at 09:00 Metoprolol Tartrate (Lopressor Vial) 5 mg Q8HRS IVP Last administered on 09/15/18at 05:48; Start 09/14/18 at 06:00; Stop 09/15/18 at 10:30; Status DC Metoprolol Tartrate (Lopressor Vial) 5 mg 1X ONCE IVP Last administered on 09/13/18at 18:42; Start 09/13/18 at 18:45; Stop 09/13/18 at 18:46; Status DC Amino Acids/ Glycerin/ Electrolytes 1,000 ml @ 75 mls/hr [id number] IV Last administered on 09/22/18at 06:22; Start 09/14/18 at 11:45 Pantoprazole Sodium (PROTONIX VIAL for IV PUSH) 40 mg DAILYAC IVP Last administered on 09/16/18at 08:38; Start 09/15/18 at 07:30; Stop 09/16/18 at 10:36; Status DC Pantoprazole Sodium (PROTONIX VIAL for IV PUSH) 40 mg 1X ONCE IVP Last administered on 09/14/18at 12:04; Start 09/14/18 at 12:00; Stop 09/14/18 at 12:01; Status DC Metoprolol Tartrate (Lopressor Vial) 5 mg PRN Q4HRS PRN IVP TACHYCARDIA Last administered on 09/20/18at 06:44; Start 09/15/18 at 10:30 Metoprolol Succinate (Toprol Xl) 25 mg BID PO Last administered on 09/15/18 20:30; Start 09/15/18 at 12:00; Stop 09/16/18 at 10:48; Status DC Pantoprazole Sodium (Protonix) 40 mg DAILYAC PO Last administered on 09/21/18 06:09; Start 09/17/18 at 07:30 Metoprolol Succinate (Toprol Xl) 25 mg Q6HRS PO Last administered on 09/21/18 06:09; Start 09/16/18 at 12:00; Stop 09/21/18 at 09:39; Status DC Prochlorperazine Edisylate (Compazine) 10 mg PRN Q8HRS PRN IV NAUSEA/VOMITING 2ND CHOICE Last administered on 09/18/18 17:18; Start 09/16/18 at 15:15; Stop 09/21/18 at 15:52; Status DC Trazodone HCl (Desyrel) 50 mg QHS PO Last administered on 09/21/18 21:06; Start 09/17/18 at 21:00 Bisacodyl (Dulcolax Supp) 10 mg PRN DAILY PRN MS CONSTIPATION Last administered on 09/21/18 03:05; Start 09/19/18 at 11:45 Ondansetron HCl (Zofran) 8 mg PRN Q8HRS PRN IV NAUSEA/VOMITING 1ST CHOICE Last administered on 09/22/18 10:43; Start 09/19/18 at 20:30; Stop 09/22/18 at 10:46; Status DC Promethazine HCl (Phenergan) 12.5 mg PRN Q6HRS PRN PO NAUSEA/VOMITING Last administered on 09/21/18 19:43; Start 09/19/18 at 20:30 Prochlorperazine Edisylate (Compazine) 10 mg PRN Q6HRS PRN IV NAUSEA/VOMITING; Start 09/19/18 at 20:30 Lorazepam (Ativan) 1 mg PRN Q6HRS PRN PO ANXIETY / AGITATION Last administered on 09/22/18 00:45; Start 09/19/18 at 20:45 Digoxin (Lanoxin) 500 mcg 1X ONCE IV Last administered on 09/20/18 08:34; Start 09/20/18 at 08:30; Stop 09/20/18 at 08:31; Status DC Amiodarone HCl 150 mg/Dextrose 103 ml @ 600 mls/hr 1X ONCE IV Last administered on 09/20/18 10:09; Start 09/20/18 at 09:30; Stop 09/20/18 at 09:40; Status DC Amiodarone HCl 900 mg/Dextrose 518 ml @ 0 mls/hr CONT PRN IV SEE I/O RECORD L ast administered on 09/20/18 20:04; Start 09/20/18 at 09:30; Stop 09/21/18 at 09:29; Status DC Amiodarone HCl (Cordarone) 200 mg DAILY PO Last administered on 09/22/18 08:42; Start 09/21/18 at 09:00 Sodium Chloride 500 ml @ 75 mls/hr Q6H40M IV Last administered on 09/21/18 10:00; Start 09/21/18 at 10:00; Stop 09/21/18 at 16:39; Status DC Metoprolol Tartrate (Lopressor) 25 mg BID PO Last administered on 09/22/18 10:42; Start 09/21/18 at 21:00 Ondansetron HCl (Zofran) 8 mg PRN Q6HRS PRN IV NAUSEA/VOMITING 1ST CHOICE; Start 09/22/18 at 11:00 Active Scripts Active Ondansetron Odt (Ondansetron) 4 Mg Tab.rapdis 1 Tab PO PRN Q6-8HRS Protonix (Pantoprazole Sodium) 40 Mg Tablet. 1 Tab PO DAILY Reported Zocor (Simvastatin) 40 Mg Tablet 40 Mg PO HS Toprol Xl (Metoprolol Succinate) 25 Mg Tab.er.24h 25 Mg PO HS Aspir 81 (Aspirin) 81 Mg Tablet.dr 81 Mg PO DAILY Vital Signs Vital Signs Date Time Temp Pulse Resp B/P (MAP) Pulse Ox O2 Delivery O2 Flow Rate FiO2 09/22/18 11:29 98.2 75 18 114/68 (83) 96 Room Air 98.2 09/22/18 08:00 94.0 Labs Laboratory Tests Test 09/21/18 03:55 09/22/18 04:00 White Blood Count 4.8 x10^3/uL (4.0-11.0) 5.8 x10^3/uL (4.0-11.0) Red Blood Count 4.00 x10^6/uL (4.30-5.70) 3.94 x10^6/uL (4.30-5.70) Hemoglobin 12.0 g/dL (13.0-17.5) 11.8 g/dL (13.0-17.5) Hematocrit 35.8 % (39.0-53.0) 35.3 % (39.0-53.0) Mean Corpuscular Volume 89 fL (79-100) 90 fL (79-100) Mean Corpuscular Hemoglobin 30 pg (25-35) 30 pg (25-35) Mean Corpuscular Hemoglobin Concent 34 g/dL (31-37) 34 g/dL (31-37) Red Cell Distribution Width 14.8 % (11.5-14.5) 15.0 % (11.5-14.5) Platelet Count 121 x10^3/uL (140-400) 118 x10^3/uL (140-400) Neutrophils (%) (Auto) 72 % (31-73) 73 % (31-73) Lymphocytes (%) (Auto) 12 % (24-48) 12 % (24-48) Monocytes (%) (Auto) 15 % (0-9) 14 % (0-9) Eosinophils (%) (Auto) 1 % (0-3) 1 % (0-3) Basophils (%) (Auto) 0 % (0-3) 0 % (0-3) Neutrophils # (Auto) 3.5 x10^3uL (1.8-7.7) 4.2 x10^3uL (1.8-7.7) Lymphocytes # (Auto) 0.6 x10^3/uL (1.0-4.8) 0.7 x10^3/uL (1.0-4.8) Monocytes # (Auto) 0.7 x10^3/uL (0.0-1.1) 0.8 x10^3/uL (0.0-1.1) Eosinophils # (Auto) 0.1 x10^3/uL (0.0-0.7) 0.1 x10^3/uL (0.0-0.7) Basophils # (Auto) 0.0 x10^3/uL (0.0-0.2) 0.0 x10^3/uL (0.0-0.2) Sodium Level 133 mmol/L (136-145) 135 mmol/L (136-145) Potassium Level 4.2 mmol/L (3.5-5.1) 4.0 mmol/L (3.5-5.1) Chloride Level 98 mmol/L (98-107) 101 mmol/L (98-107) Carbon Dioxide Level 27 mmol/L (21-32) 27 mmol/L (21-32) Anion Gap 8 (6-14) 7 (6-14) Blood Urea Nitrogen 34 mg/dL (8-26) 24 mg/dL (8-26) Creatinine 1.1 mg/dL (0.7-1.3) 1.0 mg/dL (0.7-1.3) Estimated GFR (Cockcroft-Gault) 65.3 72.8 Glucose Level 111 mg/dL (70-99) 108 mg/dL (70-99) Calcium Level 8.2 mg/dL (8.5-10.1) 8.2 mg/dL (8.5-10.1) Laboratory Tests Test 09/22/18 04:00 White Blood Count 5.8 x10^3/uL (4.0-11.0) Red Blood Count 3.94 x10^6/uL (4.30-5.70) Hemoglobin 11.8 g/dL (13.0-17.5) Hematocrit 35.3 % (39.0-53.0) Mean Corpuscular Volume 90 fL (79-100) Mean Corpuscular Hemoglobin 30 pg (25-35) Mean Corpuscular Hemoglobin Concent 34 g/dL (31-37) Red Cell Distribution Width 15.0 % (11.5-14.5) Platelet Count 118 x10^3/uL (140-400) Neutrophils (%) (Auto) 73 % (31-73) Lymphocytes (%) (Auto) 12 % (24-48) Monocytes (%) (Auto) 14 % (0-9) Eosinophils (%) (Auto) 1 % (0-3) Basophils (%) (Auto) 0 % (0-3) Neutrophils # (Auto) 4.2 x10^3uL (1.8-7.7) Lymphocytes # (Auto) 0.7 x10^3/uL (1.0-4.8) Monocytes # (Auto) 0.8 x10^3/uL (0.0-1.1) Eosinophils # (Auto) 0.1 x10^3/uL (0.0-0.7) Basophils # (Auto) 0.0 x10^3/uL (0.0-0.2) Sodium Level 135 mmol/L (136-145) Potassium Level 4.0 mmol/L (3.5-5.1) Chloride Level 101 mmol/L (98-107) Carbon Dioxide Level 27 mmol/L (21-32) Anion Gap 7 (6-14) Blood Urea Nitrogen 24 mg/dL (8-26) Creatinine 1.0 mg/dL (0.7-1.3) Estimated GFR (Cockcroft-Gault) 72.8 Glucose Level 108 mg/dL (70-99) Calcium Level 8.2 mg/dL (8.5-10.1) Allergies Allergies Coded Allergies Type Severity Reaction Last Updated Verified No Known Drug Allergies 09/08/18 No Disposition/Orders: Other (to snf bed) Patient Instructions d/c planning 37 min DAQUAN TANG MD September 22, 2018 14:30
--- NOTE | 2018-09-22 14:31 | SNU/HH DC ---
DISCHARGE ORDERS DISCHARGE INFORMATION: DISCHARGE DATE: September 22, 2018 FINAL DIAGNOSIS Problems Medical Problems: (1) Hypokalemia Status: Acute CONDITION ON DISCHARGE: Stable CODE STATUS: Code Status: Full CUSTODIAL: SNF STAY <30 DAYS: Yes HOSPICE: HOSPICE: No HOSPICE EVAL & TREAT: No LTAC: ADMIT TO LTAC: No POST DISCHARGE ORDERS: ACTIVITY ORDERS: Activity as tolerated WEIGHT BEARING STATUS: No restrictions DIET AFTER DISCHARGE: Cardiac WOUND/INCISION CARE: May get incision wet, Other, see below CHECKS AFTER DISCHARGE: CHECKS AFTER DISCHARGE: Check blood press - daily TREATMENT/EQUIPMENT ORDERS: ADAPTIVE EQUIPMENT NEEDED: None Physical Therapy For: Evalulation/Treatment Occupational Therapy For: Evaluation/Treatment DISCHARGE MEDICATIONS: Home Meds Active Scripts Ondansetron (ONDANSETRON ODT) 4 Mg Tab.rapdis, 1 TAB PO PRN Q6-8HRS for VOMITING, #16 TAB Prov:ROSA MONTELONGO DO 08/09/18 Pantoprazole Sodium (PROTONIX) 40 Mg Tablet., 1 TAB PO DAILY, #30 TAB 5 Refills Prov:NEW THOMSON MD 10/20/16 Reported Medications Simvastatin (ZOCOR) 40 Mg Tablet, 40 MG PO HS for FOR CHOLESTEROL, #30 TAB 0 Refills 03/05/14 Metoprolol Succinate (TOPROL XL) 25 Mg Tab.er.24h, 25 MG PO HS for FOR HYPERTENSION, #30 TAB 0 Refills 03/05/14 Aspirin (ASPIR 81) 81 Mg Tablet., 81 MG PO DAILY, TAB 03/05/14 DAQUAN TANG MD September 22, 2018 14:31
[2018-09-22] MEDS ORDERED: AMIO200T4 PO (14:39)
[2018-09-22] MEDS ORDERED: METO25TA4 PO (14:39)
[2018-09-22] MEDS ORDERED: MECL12.52 PO (14:39)
[2018-09-22] MEDS ORDERED: POLY17PO28 PO (14:39)
[2018-09-22 15:11] VITALS: BP 84/58
--- NOTE | 2018-09-22 15:33 | NUR ---
JUNIOR following up with pt dc plan. Pt will tentatively dc today and go to [facility] () at 1600. Pt will be transported by [facility], phone: [phone]. JUNIOR phoned and faxed orders to [facility], phone: [phone], fax: [phone]. Pt choice and pt's rights forms were signed by pt and placed in chart. Pt and pt's RN have been notified. Pt notified his significant other Dior.
--- NOTE | 2018-09-22 15:43 | SNU/HH DC ---
DISCHARGE ORDERS DISCHARGE INFORMATION: DISCHARGE DATE: September 22, 2018 FINAL DIAGNOSIS Problems Medical Problems: (1) Hypokalemia Status: Acute CONDITION ON DISCHARGE: Stable CODE STATUS: Code Status: Full DETENTION: SNF STAY <30 DAYS: Yes HOSPICE: HOSPICE: No HOSPICE EVAL & TREAT: No LTAC: ADMIT TO LTAC: No POST DISCHARGE ORDERS: ACTIVITY ORDERS: Activity as tolerated WEIGHT BEARING STATUS: No restrictions DIET AFTER DISCHARGE: Cardiac WOUND/INCISION CARE: No wound care needed CHECKS AFTER DISCHARGE: CHECKS AFTER DISCHARGE: Check blood press - daily, Check blood sugar, ac/hs, Check your Temp as needed TREATMENT/EQUIPMENT ORDERS: ADAPTIVE EQUIPMENT NEEDED: None Physical Therapy For: Evalulation/Treatment Occupational Therapy For: Evaluation/Treatment DISCHARGE MEDICATIONS: Home Meds Active Scripts Meclizine Hcl (MECLIZINE HCL) 12.5 Mg Tablet, 12.5 MG PO PRN Q6HRS PRN for DIZZINESS for 14 Days, #30 TAB Prov:DAQUAN TANG MD 09/22/18 Polyethylene Glycol 3350 (POLYETHYLENE GLYCOL 3350) 17 Gm Powd.pack, 17 GM PO PRN DAILY PRN for CONSTIPATION for 14 Days, #14 PKT Prov:DAQUAN TANG MD 09/22/18 Metoprolol Tartrate (METOPROLOL TARTRATE) 25 Mg Tablet, 25 MG PO BID for heart for 30 Days, #60 TAB Prov:DAQUAN TANG MD 09/22/18 Amiodarone Hcl (AMIODARONE HCL) 200 Mg Tablet, 200 MG PO DAILY for heart for 30 Days, #30 TAB Prov:DAQUAN TANG MD 09/22/18 Ondansetron (ONDANSETRON ODT) 4 Mg Tab.rapdis, 1 TAB PO PRN Q6-8HRS for VOMITING, #16 TAB Prov:ROSA MONTELONGO DO 08/09/18 Pantoprazole Sodium (PROTONIX) 40 Mg Tablet., 1 TAB PO DAILY, #30 TAB 5 Refills Prov:NEW THOMSON MD 10/20/16 Reported Medications Simvastatin (ZOCOR) 40 Mg Tablet, 40 MG PO HS for FOR CHOLESTEROL, #30 TAB 0 Refills 03/05/14 Aspirin (ASPIR 81) 81 Mg Tablet., 81 MG PO DAILY, TAB 03/05/14 DAQUAN TANG MD September 22, 2018 15:43
--- NOTE | 2018-09-22 16:07 | NUR ---
Discharge Note: DONALD DELONG Discharge instructions and discharge home medications reviewed with Patient and a copy given. All questions have been answered and understanding verbalized. Discontinued iv lines and catheter intact. Patient discharged tp [facility] with facility transport in wheelchair.
--- NOTE | 2018-09-24 14:05 | PDOC1 ---
History and Physical Date of Admission Date of Admission DATE: 09/24/18 TIME: 14:04 Identification/Chief Complaint Chief Complaint history and physical [facility] 09/23/18 Past Medical History Cardiovascular: HTN, AR, Hyperlipidemia Pulmonary: No pertinent hx CENTRAL NERVOUS SYSTEM: Other GI: GERD Heme/Onc: No pertinent hx Hepatobiliary: No pertinent hx Psych: No pertinent hx Musculoskeletal: low back pain, Osteoarthritis Infectious disease: No pertinent hx Renal/: Other Endocrine: No pertinent hx Past Surgical History Past Surgical History: Tonsillectomy, Other Family History Family History: Coronary Artery Disease Social History Smoke: No ALCOHOL: none Drugs: None Date: September 13, 2018 Pre-Op Diagnosis: Chilaiditi's syndrome Post-Op Diagnosis: same Procedure Performed: Laparoscopic right hemicolectomy Surgeon: Baldo Alonso Anesthesia Type: GETA plus local Blood Loss: 100 Specimans Obtained: right colon, additional small bowel Findings: Redundant right hepatic flexure extending well up above the liver, no obvious masses, no obvious volvulus, no bowel compromise, normal gallbladder, normal liver, although somewhat unusual shape Complications: none Current Problem List Problem List Problems Medical Problems: (1) Hypokalemia Status: Acute Physical Exam General: Alert, Oriented X3, Cooperative, No acute distress Heart: Regular rate, Normal S1, Normal S2, Other (2/6 systolic murmur, intermittant SVT) Lungs: Clear Abdomen: Normal bowel sounds, Soft, No tenderness Extremities: No clubbing, No cyanosis Skin: No rashes, No breakdown FINAL DIAGNOSIS Problems Medical Problems: (1) Hypokalemia Status: Acute Brief Hospital Course Mr. Hobbs is a 73 old [sex] who presented with [colon mass ] CONDITION AT DISCHARGE: Improved Discharge Medications Current Medications Adenosine (Adenocard) 6 mg STK-MED ONCE IV ; Start 09/11/18 at 10:13; Stop 09/11/18 at 10:14; Status DC Adenosine (Adenocard) 12 mg 1X ONCE IV ; Start 09/11/18 at 10:15; Stop 09/11/18 at 10:17; Status DC Sodium Chloride 1,000 ml @ 1,000 mls/hr Q1H IV Last administered on 09/11/18at 10:42; Start 09/11/18 at 10:13; Stop 09/11/18 at 11:12; Status DC Adenosine (Adenocard) 6 mg 1X ONCE IV ; Start 09/11/18 at 10:15; Stop 09/11/18 at 10:17; Status DC Ondansetron HCl (Zofran) 4 mg 1X ONCE IV Last administered on 09/11/18at 10:46; Start 09/11/18 at 10:45; Stop 09/11/18 at 10:46; Status DC Potassium Chloride (Klor-Con) 40 meq 1X ONCE PO Last administered on 09/11/18at 13:01; Start 09/11/18 at 11:15; Stop 09/11/18 at 11:16; Status DC Aspirin (Ecotrin) 81 mg DAILY PO Last administered on 09/22/18at 08:41; Start 09/11/18 at 13:00 Metoprolol Succinate (Toprol Xl) 25 mg HS PO ; Start 09/11/18 at 21:00; Stop 09/11/18 at 21:00; Status DC Ondansetron HCl (Zofran Odt) 4 mg PRN Q6HRS PRN PO NAUSEA/VOMITING Last administered on 09/22/18at 08:41; Start 09/11/18 at 13:00 Pantoprazole Sodium (Protonix) 40 mg DAILYAC PO Last administered on 09/13/18at 09:36; Start 09/11/18 at 13:00; Stop 09/14/18 at 11:54; Status DC Simvastatin (Zocor) 40 mg QHS PO Last administered on 09/11/18at 20:46; Start 09/11/18 at 21:00; Stop 09/12/18 at 15:50; Status DC Ondansetron HCl (Zofran) 4 mg STK-MED ONCE .ROUTE ; Start 09/11/18 at 10:46; Stop 09/11/18 at 12:12; Status DC Sodium Chloride 1,000 ml @ 100 mls/hr 1X ONCE IV Last administered on 09/11/18at 13:04; Start 09/11/18 at 12:45; Stop 09/11/18 at 22:44; Status DC Iohexol (Omnipaque 240 Mg/ml) 50 ml 1X ONCE PO Last administered on 09/11/18at 14:40; Start 09/11/18 at 13:15; Stop 09/11/18 at 13:23; Status DC Iohexol (Omnipaque 300 Mg/ml) 75 ml 1X ONCE IV Last administered on 09/11/18at 14:40; Start 09/11/18 at 13:15; Stop 09/11/18 at 13:23; Status DC Info (CONTRAST GIVEN -- Rx MONITORING) 1 each PRN DAILY PRN MC SEE COMMENTS; Start 09/11/18 at 13:30; Stop 09/13/18 at 13:29; Status DC Ondansetron HCl (Zofran) 4 mg PRN Q6HRS PRN IV NAUSEA/VOMITING 1ST CHOICE Last administered on 09/17/18at 08:30; Start 09/11/18 at 15:00; Stop 09/19/18 at 20:22; Status DC Prochlorperazine Edisylate (Compazine) 10 mg PRN Q6HRS PRN IV NAUSEA/VOMITING 2ND CHOICE Last administered on 09/17/18at 09:48; Start 09/11/18 at 15:00; Stop 09/18/18 at 16:57; Status DC Metoprolol Succinate (Toprol Xl) 50 mg HS PO Last administered on 09/12/18at 20:30; Start 09/11/18 at 21:00; Stop 09/14/18 at 14:39; Status DC Morphine Sulfate (Morphine Sulfate) 2 mg PRN Q4HRS PRN IV MODERATE-SEVERE PAIN Last administered on 09/18/18at 21:33; Start 09/11/18 at 17:45; Stop 09/19/18 at 08:56; Status DC Acetaminophen/ Hydrocodone Bitart (Lortab 5/325) 1 tab PRN Q6HRS PRN PO PAIN Last administered on 09/19/18at 20:42; Start 09/11/18 at 17:45 Tamsulosin HCl (Flomax) 0.4 mg DAILY PO ; Start 09/12/18 at 10:00; Stop 09/12/18 at 10:37; Status DC Polyethylene Glycol (miraLAX PACKET) 17 gm PRN DAILY PRN PO CONSTIPATION Last administered on 09/18/18at 09:13; Start 09/12/18 at 09:15 Ketorolac Tromethamine (Toradol 30mg Vial) 30 mg PRN Q6HRS PRN IV MILD PAIN Last administered on 09/17/18 09:49; Start 09/12/18 at 10:15; Stop 09/17/18 at 10:14; Status DC Meclizine HCl (Antivert) 12.5 mg PRN Q6HRS PRN PO DIZZINESS Last administered on 09/17/18at 08:30; Start 09/12/18 at 11:15 Sodium Monofluorophosphate (Fleet Adult) 133 ml 1X ONCE DC Last administered on 09/12/18at 16:13; Start 09/12/18 at 14:45; Stop 09/12/18 at 14:46; Status DC Magnesium Citrate (Citroma) 296 ml 1X ONCE PO Last administered on 09/12/18at 1 6:12; Start 09/12/18 at 16:00; Stop 09/12/18 at 16:01; Status DC Erythromycin (E-Mycin) 500 mg TID PO Last administered on 09/13/18 09:39; Start 09/12/18 at 15:00; Stop 09/14/18 at 11:39; Status DC Neomycin Sulfate (Neomycin Sulfate) 500 mg TID PO Last administered on 09/13/18 09:39; Start 09/12/18 at 16:00; Stop 09/14/18 at 11:39; Status DC Cefoxitin Sodium (Mefoxin) 2 gm 1X PERIOP ONCE IVP Last administered on 09/13/18 12:40; Start 09/13/18 at 12:00; Stop 09/13/18 at 12:01; Status DC Atorvastatin Calcium (Lipitor) 20 mg QHS PO Last administered on 09/21/18at 21:06; Start 09/12/18 at 21:00 Ondansetron HCl (Zofran) 4 mg PRN Q6HRS PRN IV NAUSEA/VOMITING; Start 09/13/18 at 07:00; Stop 09/14/18 at 06:59; Status DC Fentanyl Citrate (Fentanyl 2ml Vial) 25 mcg PRN Q5MIN PRN IV MILD PAIN; Start 09/13/18 at 07:00; Stop 09/14/18 at 06:59; Status DC Fentanyl Citrate (Fentanyl 2ml Vial) 50 mcg PRN Q5MIN PRN IV MODERATE TO SEVERE PAIN; Start 09/13/18 at 07:00; Stop 09/14/18 at 06:59; Status DC Morphine Sulfate (Morphine Sulfate) 1 mg PRN Q10MIN PRN IV SEVERE PAIN; Start 09/13/18 at 07:00; Stop 09/14/18 at 06:59; Status DC Ringer's Solution 1,000 ml @ 30 mls/hr Q24H IV Last administered on 09/13/18at 06:32; Start 09/13/18 at 07:00; Stop 09/13/18 at 16:44; Status DC Lidocaine HCl (Xylocaine-Mpf 1% 2ml Vial) 2 ml PRN 1X PRN ID PRIOR TO IV START; Start 09/13/18 at 07:00; Stop 09/14/18 at 06:59; Status DC Hydromorphone HCl (Dilaudid) 0.5 mg PRN Q10MIN PRN IV SEV PAIN, Second choice; Start 09/13/18 at 07:00; Stop 09/14/18 at 06:59; Status DC Prochlorperazine Edisylate (Compazine) 5 mg PACU PRN PRN IV NAUSEA, MRX1; Start 09/13/18 at 07:00; Stop 09/14/18 at 06:59; Status DC Lorazepam (Ativan) 0.5 mg PRN Q6HRS PRN IV ANXIETY / AGITATION Last administered on 09/19/18at 00:08; Start 09/12/18 at 19:45 Bupivacaine HCl/ Epinephrine Bitart (Sensorcain-Mpf Epi 0.5%-[id number]) 30 ml STK-MED ONCE .ROUTE Last administered on 09/13/18at 13:10; Start 09/13/18 at 10:55; Stop 09/13/18 at 11:55; Status DC Rocuronium [place] (Zemuron) 50 mg STK-MED ONCE .ROUTE ; Start 09/13/18 at 12:09; Stop 09/13/18 at 12:10; Status DC Midazolam HCl (Versed) 2 mg STK-MED ONCE .ROUTE ; Start 09/13/18 at 12:09; Stop 09/13/18 at 12:10; Status DC Fentanyl Citrate (Fentanyl 5ml Vial) 250 mcg STK-MED ONCE .ROUTE ; Start 09/13/18 at 12:09; Stop 09/13/18 at 12:10; Status DC Propofol 20 ml @ As Directed STK-MED ONCE IV ; Start 09/13/18 at 12:11; Stop 09/13/18 at 12:12; Status DC Lidocaine HCl (Lidocaine Pf 2% Vial) 5 ml STK-MED ONCE .ROUTE ; Start 09/13/18 at 12:11; Stop 09/13/18 at 12:12; Status DC Ondansetron HCl (Zofran) 4 mg STK-MED ONCE .ROUTE ; Start 09/13/18 at 12:11; Stop 09/13/18 at 12:12; Status DC Dexamethasone Sodium Phosphate (Decadron) 4 mg STK-MED ONCE .ROUTE ; Start 09/13/18 at 12:11; Stop 09/13/18 at 12:12; Status DC Cefoxitin Sodium (Mefoxin) 2 gm 1X ONCE IVP Last administered on 09/13/18at 14:40; Start 09/13/18 at 12:15; Stop 09/13/18 at 12:16; Status DC Ephedrine Sulfate (ePHEDrine PF IN SALINE SYRINGE) 50 mg STK-MED ONCE IV ; Start 09/13/18 at 12:51; Stop 09/13/18 at 12:52; Status DC Phenylephrine HCl (PHENYLEPHRINE in 0.9% NACL PF) 1 mg STK-MED ONCE IV ; Start 09/13/18 at 12:51; Stop 09/13/18 at 12:52; Status DC Rocuronium [place] (Zemuron) 50 mg STK-MED ONCE .ROUTE ; Start 09/13/18 at 13:36; Stop 09/13/18 at 13:37; Status DC Fentanyl Citrate (Fentanyl 5ml Vial) 250 mcg STK-MED ONCE .ROUTE ; Start 09/13/18 at 13:51; Stop 09/13/18 at 13:52; Status DC Neostigmine Methylsulfate (Neostigmine Methylsulfate) 5 mg STK-MED ONCE .ROUTE ; Start 09/13/18 at 13:57; Stop 09/13/18 at 13:58; Status DC Glycopyrrolate (Robinul) 1 mg STK-MED ONCE .ROUTE ; Start 09/13/18 at 13:57; Stop 09/13/18 at 13:58; Status DC Esmolol HCl (Brevibloc) 100 mg STK-MED ONCE IVP ; Start 09/13/18 at 14:00; Stop 09/13/18 at 14:01; Status DC Sevoflurane (Ultane) 90 ml STK-MED ONCE IH ; Start 09/13/18 at 14:19; Stop 09/13/18 at 14:20; Status DC Enoxaparin Sodium (Lovenox 40mg Syringe) 40 mg Q24H SQ ; Start 09/13/18 at 16:00; Status Cancel Sodium Chloride (Normal Saline Flush) 3 ml QSHIFT PRN IV AFTER MEDS AND BLOOD DRAWS; Start 09/13/18 at 15:15 Ringer's Solution 1,000 ml @ 100 mls/hr Q10H IV Last administered on 09/14/18at 01:04; Start 09/13/18 at 15:04; Stop 09/14/18 at 11:39; Status DC Naloxone HCl (Narcan) 0.4 mg PRN Q2MIN PRN IV SEE INSTRUCTIONS; Start 09/13/18 at 15:15 Sodium Chloride 1,000 ml @ 25 mls/hr Q24H IV ; Start 09/13/18 at 15:04; Stop 09/16/18 at 10:36; Status DC Morphine Sulfate 30 ml @ 0 mls/hr CONT PRN PRN IV PER PROTOCOL; Start 09/13/18 at 15:15; Stop 09/19/18 at 08:56; Status DC Lidocaine HCl (Lidocaine HCl 2% Abboject) 100 mg STK-MED ONCE .ROUTE ; Start 09/13/18 at 15:35; Stop 09/13/18 at 15:36; Status DC Lidocaine HCl (Lidocaine HCl 2% Abboject) 100 mg 1X ONCE IV Last administered on 09/13/18at 15:45; Start 09/13/18 at 15:45; Stop 09/13/18 at 15:46; Status DC Enoxaparin Sodium (Lovenox 40mg Syringe) 40 mg Q24H SQ Last administered on 09/22/18at 08:41; Start 09/14/18 at 09:00 Metoprolol Tartrate (Lopressor Vial) 5 mg Q8HRS IVP Last administered on 09/15/18at 05:48; Start 09/14/18 at 06:00; Stop 09/15/18 at 10:30; Status DC Metoprolol Tartrate (Lopressor Vial) 5 mg 1X ONCE IVP Last administered on 09/13/18 18:42; Start 09/13/18 at 18:45; Stop 09/13/18 at 18:46; Status DC Amino Acids/ Glycerin/ Electrolytes 1,000 ml @ 75 mls/hr [id number] IV Last administered on 09/22/18 06:22; Start 09/14/18 at 11:45 Pantoprazole Sodium (PROTONIX VIAL for IV PUSH) 40 mg DAILYAC IVP Last administered on 09/16/18 08:38; Start 09/15/18 at 07:30; Stop 09/16/18 at 10:36; Status DC Pantoprazole Sodium (PROTONIX VIAL for IV PUSH) 40 mg 1X ONCE IVP Last administered on 09/14/18 12:04; Start 09/14/18 at 12:00; Stop 09/14/18 at 12:01; Status DC Metoprolol Tartrate (Lopressor Vial) 5 mg PRN Q4HRS PRN IVP TACHYCARDIA Last administered on 09/20/18 06:44; Start 09/15/18 at 10:30 Metoprolol Succinate (Toprol Xl) 25 mg BID PO Last administered on 09/15/18 20:30; Start 09/15/18 at 12:00; Stop 09/16/18 at 10:48; Status DC Pantoprazole Sodium (Protonix) 40 mg DAILYAC PO Last administered on 09/21/18 06:09; Start 09/17/18 at 07:30 Metoprolol Succinate (Toprol Xl) 25 mg Q6HRS PO Last administered on 09/21/18 06:09; Start 09/16/18 at 12:00; Stop 09/21/18 at 09:39; Status DC Prochlorperazine Edisylate (Compazine) 10 mg PRN Q8HRS PRN IV NAUSEA/VOMITING 2ND CHOICE Last administered on 09/18/18 17:18; Start 09/16/18 at 15:15; Stop 09/21/18 at 15:52; Status DC Trazodone HCl (Desyrel) 50 mg QHS PO Last administered on 5/16/19at 21:06; Start 09/17/18 at 21:00 Bisacodyl (Dulcolax Supp) 10 mg PRN DAILY PRN DC CONSTIPATION Last administered on 09/21/18at 03:05; Start 09/19/18 at 11:45 Ondansetron HCl (Zofran) 8 mg PRN Q8HRS PRN IV NAUSEA/VOMITING 1ST CHOICE Last administered on 09/22/18at 10:43; Start 09/19/18 at 20:30; Stop 09/22/18 at 10:46; Status DC Promethazine HCl (Phenergan) 12.5 mg PRN Q6HRS PRN PO NAUSEA/VOMITING Last administered on 09/21/18at 19:43; Start 09/19/18 at 20:30 Prochlorperazine Edisylate (Compazine) 10 mg PRN Q6HRS PRN IV NAUSEA/VOMITING; Start 09/19/18 at 20:30 Lorazepam (Ativan) 1 mg PRN Q6HRS PRN PO ANXIETY / AGITATION Last administered on 09/22/18at 00:45; Start 09/19/18 at 20:45 Digoxin (Lanoxin) 500 mcg 1X ONCE IV Last administered on 09/20/18at 08:34; Start 09/20/18 at 08:30; Stop 09/20/18 at 08:31; Status DC Amiodarone HCl 150 mg/Dextrose 103 ml @ 600 mls/hr 1X ONCE IV Last administered on 09/20/18at 10:09; Start 09/20/18 at 09:30; Stop 09/20/18 at 09:40; Status DC Amiodarone HCl 900 mg/Dextrose 518 ml @ 0 mls/hr CONT PRN IV SEE I/O RECORD Last administered on 09/20/18at 20:04; Start 09/20/18 at 09:30; Stop 09/21/18 at 09:29; Status DC Amiodarone HCl (Cordarone) 200 mg DAILY PO Last administered on 09/22/18at 08:42; Start 09/21/18 at 09:00 Sodium Chloride 500 ml @ 75 mls/hr Q6H40M IV Last administered on 09/21/18at 10:00; Start 09/21/18 at 10:00; Stop 09/21/18 at 16:39; Status DC Metoprolol Tartrate (Lopressor) 25 mg BID PO Last administered on 09/22/18at 10:42; Start 09/21/18 at 21:00 Ondansetron HCl (Zofran) 8 mg PRN Q6HRS PRN IV NAUSEA/VOMITING 1ST CHOICE; Start 09/22/18 at 11:00 Active Scripts Active Ondansetron Odt (Ondansetron) 4 Mg Tab.rapdis 1 Tab PO PRN Q6-8HRS Protonix (Pantoprazole Sodium) 40 Mg Tablet.dr 1 Tab PO DAILY Reported Zocor (Simvastatin) 40 Mg Tablet 40 Mg PO HS Toprol Xl (Metoprolol Succinate) 25 Mg Tab.er.24h 25 Mg PO HS Aspir 81 (Aspirin) 81 Mg Tablet.dr 81 Mg PO DAILY Vital Signs Vital Signs Date Time Temp Pulse Resp B/P (MAP) Pulse Ox O2 Delivery O2 Flow Rate FiO2 09/22/18 11:29 98.2 75 18 114/68 (83) 96 Room Air 98.2 09/22/18 08:00 94.0 History of Present Illness History of Present Illness 73 year old male who presentED with complaining of dizziness and nausea and vomiting and diarrhea. Patient complaining of chronic nausea and vomiting and diarrhea with abdominal pain excessive and colonoscopy without improvement of his condition. Patient decided to come to the hospital because of not getting better and felt dizzy while he was in waiting area and had a near syncopal episode. Patient complaining of palpitation since this morning with chest discomfort feeling without shortness of breath, focal neuro deficit, fever and chills. Patient states he has history of abnormal heartbeat and take medication but doesn't know his diagnosis. Patient had heart rate of 186 with SVT at arrival to ER. Review of Systems Review of Systems Constitutional: Denies fever or chills [] Eyes: Denies change in visual acuity, redness, or eye pain [] HENT: Denies nasal congestion or sore throat [] Respiratory: Denies cough or shortness of breath [] Cardiovascular: No additional information not addressed in HPI [] GI: Reports abdominal pain, nausea, vomiting, diarrhea [] : Denies dysuria or hematuria [] Musculoskeletal: Denies back pain or joint pain [] Integument: Denies rash or skin lesions [] Neurologic: Denies headache, focal weakness or sensory changes [] Endocrine: Denies polyuria or polydipsia [] All other systems were reviewed and found to be within normal limits, except as documented in this note. Current Medications Current Medications Current Medications Medications (Trade) Dose Ordered Sig/Kaylie Start Time Stop Time Status Last Admin Dose Admin Adenosine (Adenocard) 6 mg 1X ONCE 09/11/18 10:15 09/11/18 10:17 DC Sodium Chloride 1,000 ml @ 1,000 mls/hr Q1H 09/11/18 10:13 09/11/18 11:12 DC 09/11/18 10:42 1,000 MLS/HR Allergies Allergies Allergies Coded Allergies Type Severity Reaction Last Updated Verified No Known Drug Allergies 09/08/18 No Physical Exam Physical Exam Constitutional: Well developed, well nourished, mild distress, non-toxic appearance. [] HENT: Normocephalic, atraumatic, oropharynx moist. Eyes: PERRLA, EOMI, conjunctiva normal, no discharge. [] Neck: Normal range of motion, no tenderness, supple, no stridor. [] Cardiovascular: Tachycardia with heart rate of 180, no murmur [] Lungs & Thorax: Bilateral breath sounds clear to auscultation [] Abdomen: Bowel sounds normal, soft, no tenderness, no masses, no pulsatile masses. [] Skin: Warm, dry, no erythema, no rash. [] Back: No tenderness, no CVA tenderness. [] Extremities: No tenderness, no cyanosis, no clubbing, ROM intact, no edema. [] Neurologic: Alert and oriented X 3, normal motor function, normal sensory function, no focal deficits noted. [] Psychologic: Affect normal, judgement normal, mood normal. [] Current Patient Data Vital Signs Vital Signs Date Time Temp Pulse Resp B/P (MAP) Pulse Ox O2 Delivery O2 Flow Rate FiO2 09/11/18 10:01 97.0 188 24 124/87 (99) 99 Room Air 97.0 Past Medical History Cardiovascular: HTN, AR, Hyperlipidemia Pulmonary: No pertinent hx CENTRAL NERVOUS SYSTEM: Other GI: GERD Heme/Onc: No pertinent hx Hepatobiliary: No pertinent hx Psych: No pertinent hx Musculoskeletal: low back pain, Osteoarthritis Infectious disease: No pertinent hx Renal/: Other Endocrine: No pertinent hx Past Surgical History Past Surgical History: Tonsillectomy, Other (back surgery) Family History Family History: Coronary Artery Disease, Hypertension Social History Smoke: No ALCOHOL: none (quit ) Drugs: None Current Problem List Problem List Problems Medical Problems: (1) Hypokalemia Status: Acute Current Medications Current Medications Current Medications Adenosine (Adenocard) 6 mg STK-MED ONCE IV ; Start 09/11/18 at 10:13; Stop 09/11/18 at 10:14; Status DC Adenosine (Adenocard) 12 mg 1X ONCE IV ; Start 09/11/18 at 10:15; Stop 09/11/18 at 10:17; Status DC Sodium Chloride 1,000 ml @ 1,000 mls/hr Q1H IV Last administered on 09/11/18at 10:42; Start 09/11/18 at 10:13; Stop 09/11/18 at 11:12; Status DC Adenosine (Adenocard) 6 mg 1X ONCE IV ; Start 09/11/18 at 10:15; Stop 09/11/18 at 10:17; Status DC Ondansetron HCl (Zofran) 4 mg 1X ONCE IV Last administered on 09/11/18at 10:46; Start 09/11/18 at 10:45; Stop 09/11/18 at 10:46; Status DC Potassium Chloride (Klor-Con) 40 meq 1X ONCE PO Last administered on 09/11/18at 13:01; Start 09/11/18 at 11:15; Stop 09/11/18 at 11:16; Status DC Aspirin (Ecotrin) 81 mg DAILY PO Last administered on 09/22/18at 08:41; Start 09/11/18 at 13:00; Stop 09/22/18 at 16:33; Status DC Metoprolol Succinate (Toprol Xl) 25 mg HS PO ; Start 09/11/18 at 21:00; Stop 09/11/18 at 21:00; Status DC Ondansetron HCl (Zofran Odt) 4 mg PRN Q6HRS PRN PO NAUSEA/VOMITING, 1ST CHOICE PO Last administered on 09/22/18at 08:41; Start 09/11/18 at 13:00; Stop 09/22/18 at 16:33; Status DC Pantoprazole Sodium (Protonix) 40 mg DAILYAC PO Last administered on 09/13/18at 09:36; Start 09/11/18 at 13:00; Stop 09/14/18 at 11:54; Status DC Simvastatin (Zocor) 40 mg QHS PO Last administered on 09/11/18at 20:46; Start 09/11/18 at 21:00; Stop 09/12/18 at 15:50; Status DC Ondansetron HCl (Zofran) 4 mg STK-MED ONCE .ROUTE ; Start 09/11/18 at 10:46; Stop 09/11/18 at 12:12; Status DC Sodium Chloride 1,000 ml @ 100 mls/hr 1X ONCE IV Last administered on 09/11/18at 13:04; Start 09/11/18 at 12:45; Stop 09/11/18 at 22:44; Status DC Iohexol (Omnipaque 240 Mg/ml) 50 ml 1X ONCE PO Last administered on 09/11/18at 14:40; Start 09/11/18 at 13:15; Stop 09/11/18 at 13:23; Status DC Iohexol (Omnipaque 300 Mg/ml) 75 ml 1X ONCE IV Last administered on 09/11/18at 14:40; Start 09/11/18 at 13:15; Stop 09/11/18 at 13:23; Status DC Info (CONTRAST GIVEN -- Rx MONITORING) 1 each PRN DAILY PRN MC SEE COMMENTS; Start 09/11/18 at 13:30; Stop 09/13/18 at 13:29; Status DC Ondansetron HCl (Zofran) 4 mg PRN Q6HRS PRN IV NAUSEA/VOMITING 1ST CHOICE Last administered on 09/17/18at 08:30; Start 09/11/18 at 15:00; Stop 09/19/18 at 20:22; Status DC Prochlorperazine Edisylate (Compazine) 10 mg PRN Q6HRS PRN IV NAUSEA/VOMITING 2ND CHOICE Last administered on 09/17/18at 09:48; Start 09/11/18 at 15:00; Stop 09/18/18 at 16:57; Status DC Metoprolol Succinate (Toprol Xl) 50 mg HS PO Last administered on 09/12/18at 20:30; Start 09/11/18 at 21:00; Stop 09/14/18 at 14:39; Status DC Morphine Sulfate (Morphine Sulfate) 2 mg PRN Q4HRS PRN IV MODERATE-SEVERE PAIN Last administered on 09/18/18 21:33; Start 09/11/18 at 17:45; Stop 09/19/18 at 08:56; Status DC Acetaminophen/ Hydrocodone Bitart (Lortab 5/325) 1 tab PRN Q6HRS PRN PO PAIN Last administered on 09/19/18at 20:42; Start 09/11/18 at 17:45; Stop 09/22/18 at 16:33; Status DC Tamsulosin HCl (Flomax) 0.4 mg DAILY PO ; Start 09/12/18 at 10:00; Stop 09/12/18 at 10:37; Status DC Polyethylene Glycol (miraLAX PACKET) 17 gm PRN DAILY PRN PO CONSTIPATION Last administered on 09/18/18 09:13; Start 09/12/18 at 09:15; Stop 09/22/18 at 16:33; Status DC Ketorolac Tromethamine (Toradol 30mg Vial) 30 mg PRN Q6HRS PRN IV MILD PAIN Last administered on 09/17/18 09:49; Start 09/12/18 at 10:15; Stop 09/17/18 at 1 0:14; Status DC Meclizine HCl (Antivert) 12.5 mg PRN Q6HRS PRN PO DIZZINESS Last administered on 09/17/18 08:30; Start 09/12/18 at 11:15; Stop 09/22/18 at 16:33; Status DC Sodium Monofluorophosphate (Fleet Adult) 133 ml 1X ONCE DC Last administered on 09/12/18 16:13; Start 09/12/18 at 14:45; Stop 09/12/18 at 14:46; Status DC Magnesium Citrate (Citroma) 296 ml 1X ONCE PO Last administered on 09/12/18 16:12; Start 09/12/18 at 16:00; Stop 09/12/18 at 16:01; Status DC Erythromycin (E-Mycin) 500 mg TID PO Last administered on 09/13/18 09:39; Start 09/12/18 at 15:00; Stop 09/14/18 at 11:39; Status DC Neomycin Sulfate (Neomycin Sulfate) 500 mg TID PO Last administered on 09/13/18at 09:39; Start 09/12/18 at 16:00; Stop 09/14/18 at 11:39; Status DC Cefoxitin Sodium (Mefoxin) 2 gm 1X PERIOP ONCE IVP Last administered on 09/13/18at 12:40; Start 09/13/18 at 12:00; Stop 09/13/18 at 12:01; Status DC Atorvastatin Calcium (Lipitor) 20 mg QHS PO Last administered on 09/21/18at 21:06; Start 09/12/18 at 21:00; Stop 09/22/18 at 16:33; Status DC Ondansetron HCl (Zofran) 4 mg PRN Q6HRS PRN IV NAUSEA/VOMITING; Start 09/13/18 at 07:00; Stop 09/14/18 at 06:59; Status DC Fentanyl Citrate (Fentanyl 2ml Vial) 25 mcg PRN Q5MIN PRN IV MILD PAIN; Start 09/13/18 at 07:00; Stop 09/14/18 at 06:59; Status DC Fentanyl Citrate (Fentanyl 2ml Vial) 50 mcg PRN Q5MIN PRN IV MODERATE TO SEVERE PAIN; Start 09/13/18 at 07:00; Stop 09/14/18 at 06:59; Status DC Morphine Sulfate (Morphine Sulfate) 1 mg PRN Q10MIN PRN IV SEVERE PAIN; Start 09/13/18 at 07:00; Stop 09/14/18 at 06:59; Status DC Ringer's Solution 1,000 ml @ 30 mls/hr Q24H IV Last administered on 09/13/18at 06:32; Start 09/13/18 at 07:00; Stop 09/13/18 at 16:44; Status DC Lidocaine HCl (Xylocaine-Mpf 1% 2ml Vial) 2 ml PRN 1X PRN ID PRIOR TO IV START; Start 09/13/18 at 07:00; Stop 09/14/18 at 06:59; Status DC Hydromorphone HCl (Dilaudid) 0.5 mg PRN Q10MIN PRN IV SEV PAIN, Second choice; Start 09/13/18 at 07:00; Stop 09/14/18 at 06:59; Status DC Prochlorperazine Edisylate (Compazine) 5 mg PACU PRN PRN IV NAUSEA, MRX1; Start 09/13/18 at 07:00; Stop 09/14/18 at 06:59; Status DC Lorazepam (Ativan) 0.5 mg PRN Q6HRS PRN IV ANXIETY / AGITATION Last administered on 09/19/18at 00:08; Start 09/12/18 at 19:45; Stop 09/22/18 at 16:33; Status DC Bupivacaine HCl/ Epinephrine Bitart (Sensorcain-Mpf Epi 0.5%-[id number]) 30 ml STK-MED ONCE .ROUTE Last administered on 09/13/18at 13:10; Start 09/13/18 at 10:55; Stop 09/13/18 at 11:55; Status DC Rocuronium [place] (Zemuron) 50 mg STK-MED ONCE .ROUTE ; Start 09/13/18 at 12:09; Stop 09/13/18 at 12:10; Status DC Midazolam HCl (Versed) 2 mg STK-MED ONCE .ROUTE ; Start 09/13/18 at 12:09; Stop 09/13/18 at 12:10; Status DC Fentanyl Citrate (Fentanyl 5ml Vial) 250 mcg STK-MED ONCE .ROUTE ; Start 09/13/18 at 12:09; Stop 09/13/18 at 12:10; Status DC Propofol 20 ml @ As Directed STK-MED ONCE IV ; Start 09/13/18 at 12:11; Stop 09/13/18 at 12:12; Status DC Lidocaine HCl (Lidocaine Pf 2% Vial) 5 ml STK-MED ONCE .ROUTE ; Start 09/13/18 at 12:11; Stop 09/13/18 at 12:12; Status DC Ondansetron HCl (Zofran) 4 mg STK-MED ONCE .ROUTE ; Start 09/13/18 at 12:11; Stop 09/13/18 at 12:12; Status DC Dexamethasone Sodium Phosphate (Decadron) 4 mg STK-MED ONCE .ROUTE ; Start 09/13/18 at 12:11; Stop 09/13/18 at 12:12; Status DC Cefoxitin Sodium (Mefoxin) 2 gm 1X ONCE IVP Last administered on 09/13/18at 14:40; Start 09/13/18 at 12:15; Stop 09/13/18 at 12:16; Status DC Ephedrine Sulfate (ePHEDrine PF IN SALINE SYRINGE) 50 mg STK-MED ONCE IV ; Start 09/13/18 at 12:51; Stop 09/13/18 at 12:52; Status DC Phenylephrine HCl (PHENYLEPHRINE in 0.9% NACL PF) 1 mg STK-MED ONCE IV ; Start 09/13/18 at 12:51; Stop 09/13/18 at 12:52; Status DC Rocuronium [place] (Zemuron) 50 mg STK-MED ONCE .ROUTE ; Start 09/13/18 at 13:36; Stop 09/13/18 at 13:37; Status DC Fentanyl Citrate (Fentanyl 5ml Vial) 250 mcg STK-MED ONCE .ROUTE ; Start 09/13/18 at 13:51; Stop 09/13/18 at 13:52; Status DC Neostigmine Methylsulfate (Neostigmine Methylsulfate) 5 mg STK-MED ONCE .ROUTE ; Start 09/13/18 at 13:57; Stop 09/13/18 at 13:58; Status DC Glycopyrrolate (Robinul) 1 mg STK-MED ONCE .ROUTE ; Start 09/13/18 at 13:57; Stop 09/13/18 at 13:58; Status DC Esmolol HCl (Brevibloc) 100 mg STK-MED ONCE IVP ; Start 09/13/18 at 14:00; Stop 09/13/18 at 14:01; Status DC Sevoflurane (Ultane) 90 ml STK-MED ONCE IH ; Start 09/13/18 at 14:19; Stop 09/13/18 at 14:20; Status DC Enoxaparin Sodium (Lovenox 40mg Syringe) 40 mg Q24H SQ ; Start 09/13/18 at 16:00; Status Cancel Sodium Chloride (Normal Saline Flush) 3 ml QSHIFT PRN IV AFTER MEDS AND BLOOD DRAWS; Start 09/13/18 at 15:15; Stop 09/22/18 at 16:33; Status DC Ringer's Solution 1,000 ml @ 100 mls/hr Q10H IV Last administered on 09/14/18at 01:04; Start 09/13/18 at 15:04; Stop 09/14/18 at 11:39; Status DC Naloxone HCl (Narcan) 0.4 mg PRN Q2MIN PRN IV SEE INSTRUCTIONS; Start 09/13/18 a t 15:15; Stop 09/22/18 at 16:33; Status DC Sodium Chloride 1,000 ml @ 25 mls/hr Q24H IV ; Start 09/13/18 at 15:04; Stop 09/16/18 at 10:36; Status DC Morphine Sulfate 30 ml @ 0 mls/hr CONT PRN PRN IV PER PROTOCOL; Start 09/13/18 at 15:15; Stop 09/19/18 at 08:56; Status DC Lidocaine HCl (Lidocaine HCl 2% Abboject) 100 mg STK-MED ONCE .ROUTE ; Start 09/13/18 at 15:35; Stop 09/13/18 at 15:36; Status DC Lidocaine HCl (Lidocaine HCl 2% Abboject) 100 mg 1X ONCE IV Last administered on 09/13/18at 15:45; Start 09/13/18 at 15:45; Stop 09/13/18 at 15:46; Status DC Enoxaparin Sodium (Lovenox 40mg Syringe) 40 mg Q24H SQ Last administered on at 08:41; Start 09/14/18 at 09:00; Stop 09/22/18 at 16:33; Status DC Metoprolol Tartrate (Lopressor Vial) 5 mg Q8HRS IVP Last administered on 09/15/18at 05:48; Start 09/14/18 at 06:00; Stop 09/15/18 at 10:30; Status DC Metoprolol Tartrate (Lopressor Vial) 5 mg 1X ONCE IVP Last administered on 09/13/18at 18:42; Start 09/13/18 at 18:45; Stop 09/13/18 at 18:46; Status DC Amino Acids/ Glycerin/ Electrolytes 1,000 ml @ 75 mls/hr [id number] IV Last administered on 09/22/18at 06:22; Start 09/14/18 at 11:45; Stop 09/22/18 at 16:33; Status DC Pantoprazole Sodium (PROTONIX VIAL for IV PUSH) 40 mg DAILYAC IVP Last administered on 09/16/18at 08:38; Start 09/15/18 at 07:30; Stop 09/16/18 at 10:36; Status DC Pantoprazole Sodium (PROTONIX VIAL for IV PUSH) 40 mg 1X ONCE IVP Last administered on 09/14/18at 12:04; Start 09/14/18 at 12:00; Stop 09/14/18 at 12:01; Status DC Metoprolol Tartrate (Lopressor Vial) 5 mg PRN Q4HRS PRN IVP TACHYCARDIA Last administered on 09/20/18at 06:44; Start 09/15/18 at 10:30; Stop 09/22/18 at 1 6:33; Status DC Metoprolol Succinate (Toprol Xl) 25 mg BID PO Last administered on 09/15/18at 20:30; Start 09/15/18 at 12:00; Stop 09/16/18 at 10:48; Status DC Pantoprazole Sodium (Protonix) 40 mg DAILYAC PO Last administered on 09/21/18at 06:09; Start 09/17/18 at 07:30; Stop 09/22/18 at 16:33; Status DC Metoprolol Succinate (Toprol Xl) 25 mg Q6HRS PO Last administered on 09/21/18at 06:09; Start 09/16/18 at 12:00; Stop 09/21/18 at 09:39; Status DC Prochlorperazine Edisylate (Compazine) 10 mg PRN Q8HRS PRN IV NAUSEA/VOMITING 2ND CHOICE Last administered on 09/18/18at 17:18; Start 09/16/18 at 15:15; Stop 09/21/18 at 15:52; Status DC Trazodone HCl (Desyrel) 50 mg QHS PO Last administered on 09/21/18at 21:06; Start 09/17/18 at 21:00; Stop 09/22/18 at 16:33; Status DC Bisacodyl (Dulcolax Supp) 10 mg PRN DAILY PRN DC CONSTIPATION Last administered on 09/21/18at 03:05; Start 09/19/18 at 11:45; Stop 09/22/18 at 16:33; Status DC Ondansetron HCl (Zofran) 8 mg PRN Q8HRS PRN IV NAUSEA/VOMITING 1ST CHOICE Last administered on 09/22/18at 10:43; Start 09/19/18 at 20:30; Stop 09/22/18 at 10:46; Status DC Promethazine HCl (Phenergan) 12.5 mg PRN Q6HRS PRN PO NAUSEA/VOMITING, 2ND CHOICE PO Last administered on 09/21/18at 19:43; Start 09/19/18 at 20:30; Stop 09/22/18 at 16:33; Status DC Prochlorperazine Edisylate (Compazine) 10 mg PRN Q6HRS PRN IV NAUSEA/VOMITING, 2ND CHOICE; Start 09/19/18 at 20:30; Stop 09/22/18 at 16:33; Status DC Lorazepam (Ativan) 1 mg PRN Q6HRS PRN PO ANXIETY / AGITATION Last administered on 09/22/18at 00:45; Start 09/19/18 at 20:45; Stop 09/22/18 at 16:33; Status DC Digoxin (Lanoxin) 500 mcg 1X ONCE IV Last administered on 09/20/18at 08:34; Start 09/20/18 at 08:30; Stop 09/20/18 at 08:31; Status DC Amiodarone HCl 150 mg/Dextrose 103 ml @ 600 mls/hr 1X ONCE IV Last administered on 09/20/18at 10:09; Start 09/20/18 at 09:30; Stop 09/20/18 at 09:40; Status DC Amiodarone HCl 900 mg/Dextrose 518 ml @ 0 mls/hr CONT PRN IV SEE I/O RECORD Last administered on 09/20/18at 20:04; Start 09/20/18 at 09:30; Stop 09/21/18 at 09:29; Status DC Amiodarone HCl (Cordarone) 200 mg DAILY PO Last administered on 09/22/18at 08:42; Start 09/21/18 at 09:00; Stop 09/22/18 at 16:33; Status DC Sodium Chloride 500 ml @ 75 mls/hr Q6H40M IV Last administered on 09/21/18at 10:00; Start 09/21/18 at 10:00; Stop 09/21/18 at 16:39; Status DC Metoprolol Tartrate (Lopressor) 25 mg BID PO Last administered on 09/22/18at 10:42; Start 09/21/18 at 21:00; Stop 09/22/18 at 16:33; Status DC Ondansetron HCl (Zofran) 8 mg PRN Q6HRS PRN IV NAUSEA/VOMITING 1ST CHOICE; Start 09/22/18 at 11:00; Stop 09/22/18 at 16:33; Status DC Active Scripts Active Meclizine Hcl 12.5 Mg Tablet 12.5 Mg PO PRN Q6HRS PRN 14 Days Polyethylene Glycol 3350 17 Gm Powd.pack 17 Gm PO PRN DAILY PRN 14 Days Metoprolol Tartrate 25 Mg Tablet 25 Mg PO BID 30 Days Amiodarone Hcl 200 Mg Tablet 200 Mg PO DAILY 30 Days Ondansetron Odt (Ondansetron) 4 Mg Tab.rapdis 1 Tab PO PRN Q6-8HRS Protonix (Pantoprazole Sodium) 40 Mg Tablet.dr 1 Tab PO DAILY Reported Zocor (Simvastatin) 40 Mg Tablet 40 Mg PO HS Aspir 81 (Aspirin) 81 Mg Tablet.dr 81 Mg PO DAILY Allergies Allergies: Coded Allergies: No Known Drug Allergies (Unverified , 09/08/18) Physical Exam Physical Exam Physical Exam General: Alert, Oriented X3, Cooperative, No acute distress Heart: Regular rate, Normal S1, Normal S2, Other (2/6 systolic murmur, intermittant SVT) Lungs: Clear Abdomen: Normal bowel sounds, Soft, No tenderness Extremities: No clubbing, No cyanosis Skin: No rashes, No breakdown FINAL DIAGNOSIS Problems Medical Problems: (1) Hypokalemia Status: Acute Brief Hospital Course Mr. Hobbs is a 73 old [sex] who presented with [colon mass ] CONDITION AT DISCHARGE: Improved Discharge Medications Current Medications Adenosine (Adenocard) 6 mg STK-MED ONCE IV ; Start 09/11/18 at 10:13; Stop 09/11/18 at 10:14; Status DC Adenosine (Adenocard) 12 mg 1X ONCE IV ; Start 09/11/18 at 10:15; Stop 09/11/18 at 10:17; Status DC Sodium Chloride 1,000 ml @ 1,000 mls/hr Q1H IV Last administered on 09/11/18at 10:42; Start 09/11/18 at 10:13; Stop 09/11/18 at 11:12; Status DC Adenosine (Adenocard) 6 mg 1X ONCE IV ; Start 09/11/18 at 10:15; Stop 09/11/18 at 10:17; Status DC Ondansetron HCl (Zofran) 4 mg 1X ONCE IV Last administered on 09/11/18at 10:46; Start 09/11/18 at 10:45; Stop 09/11/18 at 10:46; Status DC Potassium Chloride (Klor-Con) 40 meq 1X ONCE PO Last administered on 09/11/18at 13:01; Start 09/11/18 at 11:15; Stop 09/11/18 at 11:16; Status DC Aspirin (Ecotrin) 81 mg DAILY PO Last administered on 09/22/18at 08:41; Start 09/11/18 at 13:00 Metoprolol Succinate (Toprol Xl) 25 mg HS PO ; Start 09/11/18 at 21:00; Stop 09/11/18 at 21:00; Status DC Ondansetron HCl (Zofran Odt) 4 mg PRN Q6HRS PRN PO NAUSEA/VOMITING Last admini stered on 09/22/18at 08:41; Start 09/11/18 at 13:00 Pantoprazole Sodium (Protonix) 40 mg DAILYAC PO Last administered on 09/13/18at 09:36; Start 09/11/18 at 13:00; Stop 09/14/18 at 11:54; Status DC Simvastatin (Zocor) 40 mg QHS PO Last administered on 09/11/18at 20:46; Start 09/11/18 at 21:00; Stop 09/12/18 at 15:50; Status DC Ondansetron HCl (Zofran) 4 mg STK-MED ONCE .ROUTE ; Start 09/11/18 at 10:46; Stop 09/11/18 at 12:12; Status DC Sodium Chloride 1,000 ml @ 100 mls/hr 1X ONCE IV Last administered on 09/11/18 at 13:04; Start 09/11/18 at 12:45; Stop 09/11/18 at 22:44; Status DC Iohexol (Omnipaque 240 Mg/ml) 50 ml 1X ONCE PO Last administered on 09/11/18at 14:40; Start 09/11/18 at 13:15; Stop 09/11/18 at 13:23; Status DC Iohexol (Omnipaque 300 Mg/ml) 75 ml 1X ONCE IV Last administered on 09/11/18 14:40; Start 09/11/18 at 13:15; Stop 09/11/18 at 13:23; Status DC Info (CONTRAST GIVEN -- Rx MONITORING) 1 each PRN DAILY PRN MC SEE COMMENTS; Start 09/11/18 at 13:30; Stop 09/13/18 at 13:29; Status DC Ondansetron HCl (Zofran) 4 mg PRN Q6HRS PRN IV NAUSEA/VOMITING 1ST CHOICE Last administered on 09/17/18 08:30; Start 09/11/18 at 15:00; Stop 09/19/18 at 20:22; Status DC Prochlorperazine Edisylate (Compazine) 10 mg PRN Q6HRS PRN IV NAUSEA/VOMITING 2ND CHOICE Last administered on 09/17/18 09:48; Start 09/11/18 at 15:00; Stop 09/18/18 at 16:57; Status DC Metoprolol Succinate (Toprol Xl) 50 mg HS PO Last administered on 09/12/18 20:30; Start 09/11/18 at 21:00; Stop 09/14/18 at 14:39; Status DC Morphine Sulfate (Morphine Sulfate) 2 mg PRN Q4HRS PRN IV MODERATE-SEVERE PAIN Last administered on 09/18/18 21:33; Start 09/11/18 at 17:45; Stop 09/19/18 at 0 8:56; Status DC Acetaminophen/ Hydrocodone Bitart (Lortab 5/325) 1 tab PRN Q6HRS PRN PO PAIN Last administered on 09/19/18 20:42; Start 09/11/18 at 17:45 Tamsulosin HCl (Flomax) 0.4 mg DAILY PO ; Start 09/12/18 at 10:00; Stop 09/12/18 at 10:37; Status DC Polyethylene Glycol (miraLAX PACKET) 17 gm PRN DAILY PRN PO CONSTIPATION Last administered on 09/18/18 09:13; Start 09/12/18 at 09:15 Ketorolac Tromethamine (Toradol 30mg Vial) 30 mg PRN Q6HRS PRN IV MILD PAIN Last administered on 09/17/18 09:49; Start 09/12/18 at 10:15; Stop 09/17/18 at 10:14; Status DC Meclizine HCl (Antivert) 12.5 mg PRN Q6HRS PRN PO DIZZINESS Last administered on 09/17/18at 08:30; Start 09/12/18 at 11:15 Sodium Monofluorophosphate (Fleet Adult) 133 ml 1X ONCE DC Last administered on 09/12/18at 16:13; Start 09/12/18 at 14:45; Stop 09/12/18 at 14:46; Status DC Magnesium Citrate (Citroma) 296 ml 1X ONCE PO Last administered on 09/12/18at 16:12; Start 09/12/18 at 16:00; Stop 09/12/18 at 16:01; Status DC Erythromycin (E-Mycin) 500 mg TID PO Last administered on 09/13/18at 09:39; Start 09/12/18 at 15:00; Stop 09/14/18 at 11:39; Status DC Neomycin Sulfate (Neomycin Sulfate) 500 mg TID PO Last administered on 09/13/18at 09:39; Start 09/12/18 at 16:00; Stop 09/14/18 at 11:39; Status DC Cefoxitin Sodium (Mefoxin) 2 gm 1X PERIOP ONCE IVP Last administered on 09/13/18at 12:40; Start 09/13/18 at 12:00; Stop 09/13/18 at 12:01; Status DC Atorvastatin Calcium (Lipitor) 20 mg QHS PO Last administered on 09/21/18at 21:06; Start 09/12/18 at 21:00 Ondansetron HCl (Zofran) 4 mg PRN Q6HRS PRN IV NAUSEA/VOMITING; Start 09/13/18 at 07:00; Stop 09/14/18 at 06:59; Status DC Fentanyl Citrate (Fentanyl 2ml Vial) 25 mcg PRN Q5MIN PRN IV MILD PAIN; Start 09/13/18 at 07:00; Stop 09/14/18 at 06:59; Status DC Fentanyl Citrate (Fentanyl 2ml Vial) 50 mcg PRN Q5MIN PRN IV MODERATE TO SEVERE PAIN; Start 09/13/18 at 07:00; Stop 09/14/18 at 06:59; Status DC Morphine Sulfate (Morphine Sulfate) 1 mg PRN Q10MIN PRN IV SEVERE PAIN; Start 09/13/18 at 07:00; Stop 09/14/18 at 06:59; Status DC Ringer's Solution 1,000 ml @ 30 mls/hr Q24H IV Last administered on 09/13/18at 06:32; Start 09/13/18 at 07:00; Stop 09/13/18 at 16:44; Status DC Lidocaine HCl (Xylocaine-Mpf 1% 2ml Vial) 2 ml PRN 1X PRN ID PRIOR TO IV START; Start 09/13/18 at 07:00; Stop 09/14/18 at 06:59; Status DC Hydromorphone HCl (Dilaudid) 0.5 mg PRN Q10MIN PRN IV SEV PAIN, Second choice; Start 09/13/18 at 07:00; Stop 09/14/18 at 06:59; Status DC Prochlorperazine Edisylate (Compazine) 5 mg PACU PRN PRN IV NAUSEA, MRX1; Start 09/13/18 at 07:00; Stop 09/14/18 at 06:59; Status DC Lorazepam (Ativan) 0.5 mg PRN Q6HRS PRN IV ANXIETY / AGITATION Last administered on 09/19/18at 00:08; Start 09/12/18 at 19:45 Bupivacaine HCl/ Epinephrine Bitart (Sensorcain-Mpf Epi 0.5%-1:[id number]) 30 ml STK-MED ONCE .ROUTE Last administered on 09/13/18at 13:10; Start 09/13/18 at 10:55; Stop 09/13/18 at 11:55; Status DC Rocuronium [place] (Zemuron) 50 mg STK-MED ONCE .ROUTE ; Start 09/13/18 at 12:09; Stop 09/13/18 at 12:10; Status DC Midazolam HCl (Versed) 2 mg STK-MED ONCE .ROUTE ; Start 09/13/18 at 12:09; Stop 09/13/18 at 12:10; Status DC Fentanyl Citrate (Fentanyl 5ml Vial) 250 mcg STK-MED ONCE .ROUTE ; Start 09/13/18 at 12:09; Stop 09/13/18 at 12:10; Status DC Propofol 20 ml @ As Directed STK-MED ONCE IV ; Start 09/13/18 at 12:11; Stop 09/13/18 at 12:12; Status DC Lidocaine HCl (Lidocaine Pf 2% Vial) 5 ml STK-MED ONCE .ROUTE ; Start 09/13/18 at 12:11; Stop 09/13/18 at 12:12; Status DC Ondansetron HCl (Zofran) 4 mg STK-MED ONCE .ROUTE ; Start 09/13/18 at 12:11; Stop 09/13/18 at 12:12; Status DC Dexamethasone Sodium Phosphate (Decadron) 4 mg STK-MED ONCE .ROUTE ; Start 09/13/18 at 12:11; Stop 09/13/18 at 12:12; Status DC Cefoxitin Sodium (Mefoxin) 2 gm 1X ONCE IVP Last administered on 09/13/18at 14:40; Start 09/13/18 at 12:15; Stop 09/13/18 at 12:16; Status DC Ephedrine Sulfate (ePHEDrine PF IN SALINE SYRINGE) 50 mg STK-MED ONCE IV ; Start 09/13/18 at 12:51; Stop 09/13/18 at 12:52; Status DC Phenylephrine HCl (PHENYLEPHRINE in 0.9% NACL PF) 1 mg STK-MED ONCE IV ; Start 09/13/18 at 12:51; Stop 09/13/18 at 12:52; Status DC Rocuronium [place] (Zemuron) 50 mg STK-MED ONCE .ROUTE ; Start 09/13/18 at 13:36; Stop 09/13/18 at 13:37; Status DC Fentanyl Citrate (Fentanyl 5ml Vial) 250 mcg STK-MED ONCE .ROUTE ; Start 09/13/18 at 13:51; Stop 09/13/18 at 13:52; Status DC Neostigmine Methylsulfate (Neostigmine Methylsulfate) 5 mg STK-MED ONCE .ROUTE ; Start 09/13/18 at 13:57; Stop 09/13/18 at 13:58; Status DC Glycopyrrolate (Robinul) 1 mg STK-MED ONCE .ROUTE ; Start 09/13/18 at 13:57; Stop 09/13/18 at 13:58; Status DC Esmolol HCl (Brevibloc) 100 mg STK-MED ONCE IVP ; Start 09/13/18 at 14:00; Stop 09/13/18 at 14:01; Status DC Sevoflurane (Ultane) 90 ml STK-MED ONCE IH ; Start 09/13/18 at 14:19; Stop 09/13/18 at 14:20; Status DC Enoxaparin Sodium (Lovenox 40mg Syringe) 40 mg Q24H SQ ; Start 09/13/18 at 16:00; Status Cancel Sodium Chloride (Normal Saline Flush) 3 ml QSHIFT PRN IV AFTER MEDS AND BLOOD DRAWS; Start 09/13/18 at 15:15 Ringer's Solution 1,000 ml @ 100 mls/hr Q10H IV Last administered on 09/14/18at 01:04; Start 09/13/18 at 15:04; Stop 09/14/18 at 11:39; Status DC Naloxone HCl (Narcan) 0.4 mg PRN Q2MIN PRN IV SEE INSTRUCTIONS; Start 09/13/18 at 15:15 Sodium Chloride 1,000 ml @ 25 mls/hr Q24H IV ; Start 09/13/18 at 15:04; Stop 09/16/18 at 10:36; Status DC Morphine Sulfate 30 ml @ 0 mls/hr CONT PRN PRN IV PER PROTOCOL; Start 09/13/18 at 15:15; Stop 09/19/18 at 08:56; Status DC Lidocaine HCl (Lidocaine HCl 2% Abboject) 100 mg STK-MED ONCE .ROUTE ; Start 09/13/18 at 15:35; Stop 09/13/18 at 15:36; Status DC Lidocaine HCl (Lidocaine HCl 2% Abboject) 100 mg 1X ONCE IV Last administered on 09/13/18at 15:45; Start 09/13/18 at 15:45; Stop 09/13/18 at 15:46; Status DC Enoxaparin Sodium (Lovenox 40mg Syringe) 40 mg Q24H SQ Last administered on 09/22/18at 08:41; Start 09/14/18 at 09:00 Metoprolol Tartrate (Lopressor Vial) 5 mg Q8HRS IVP Last administered on 09/15/18at 05:48; Start 09/14/18 at 06:00; Stop 09/15/18 at 10:30; Status DC Metoprolol Tartrate (Lopressor Vial) 5 mg 1X ONCE IVP Last administered on 09/13/18at 18:42; Start 09/13/18 at 18:45; Stop 09/13/18 at 18:46; Status DC Amino Acids/ Glycerin/ Electrolytes 1,000 ml @ 75 mls/hr [id number] IV Last administered on 09/22/18 06:22; Start 09/14/18 at 11:45 Pantoprazole Sodium (PROTONIX VIAL for IV PUSH) 40 mg DAILYAC IVP Last administered on 09/16/18 08:38; Start 09/15/18 at 07:30; Stop 09/16/18 at 10:36; Status DC Pantoprazole Sodium (PROTONIX VIAL for IV PUSH) 40 mg 1X ONCE IVP Last administered on 09/14/18 12:04; Start 09/14/18 at 12:00; Stop 09/14/18 at 12:01; Status DC Metoprolol Tartrate (Lopressor Vial) 5 mg PRN Q4HRS PRN IVP TACHYCARDIA Last administered on 09/20/18 06:44; Start 09/15/18 at 10:30 Metoprolol Succinate (Toprol Xl) 25 mg BID PO Last administered on 09/15/18 20:30; Start 09/15/18 at 12:00; Stop 09/16/18 at 10:48; Status DC Pantoprazole Sodium (Protonix) 40 mg DAILYAC PO Last administered on 09/21/18 06:09; Start 09/17/18 at 07:30 Metoprolol Succinate (Toprol Xl) 25 mg Q6HRS PO Last administered on 09/21/18 06:09; Start 09/16/18 at 12:00; Stop 09/21/18 at 09:39; Status DC Prochlorperazine Edisylate (Compazine) 10 mg PRN Q8HRS PRN IV NAUSEA/VOMITING 2ND CHOICE Last administered on 09/18/18 17:18; Start 09/16/18 at 15:15; Stop 09/21/18 at 15:52; Status DC Trazodone HCl (Desyrel) 50 mg QHS PO Last administered on 09/21/18 21:06; Start 09/17/18 at 21:00 Bisacodyl (Dulcolax Supp) 10 mg PRN DAILY PRN DC CONSTIPATION Last administered on 5/16/19at 03:05; Start 09/19/18 at 11:45 Ondansetron HCl (Zofran) 8 mg PRN Q8HRS PRN IV NAUSEA/VOMITING 1ST CHOICE Last administered on 09/22/18at 10:43; Start 09/19/18 at 20:30; Stop 09/22/18 at 10:46; Status DC Promethazine HCl (Phenergan) 12.5 mg PRN Q6HRS PRN PO NAUSEA/VOMITING Last administered on 09/21/18at 19:43; Start 09/19/18 at 20:30 Prochlorperazine Edisylate (Compazine) 10 mg PRN Q6HRS PRN IV NAUSEA/VOMITING; Start 09/19/18 at 20:30 Lorazepam (Ativan) 1 mg PRN Q6HRS PRN PO ANXIETY / AGITATION Last administered on 09/22/18 00:45; Start 09/19/18 at 20:45 Digoxin (Lanoxin) 500 mcg 1X ONCE IV Last administered on 09/20/18at 08:34; Start 09/20/18 at 08:30; Stop 09/20/18 at 08:31; Status DC Amiodarone HCl 150 mg/Dextrose 103 ml @ 600 mls/hr 1X ONCE IV Last administered on 09/20/18 10:09; Start 09/20/18 at 09:30; Stop 09/20/18 at 09:40; Status DC Amiodarone HCl 900 mg/Dextrose 518 ml @ 0 mls/hr CONT PRN IV SEE I/O RECORD Last administered on 09/20/18at 20:04; Start 09/20/18 at 09:30; Stop 09/21/18 at 09:29; Status DC Amiodarone HCl (Cordarone) 200 mg DAILY PO Last administered on 09/22/18 08:42; Start 09/21/18 at 09:00 Sodium Chloride 500 ml @ 75 mls/hr Q6H40M IV Last administered on 09/21/18at 10:00; Start 09/21/18 at 10:00; Stop 09/21/18 at 16:39; Status DC Metoprolol Tartrate (Lopressor) 25 mg BID PO Last administered on 09/22/18at 10 :42; Start 09/21/18 at 21:00 Ondansetron HCl (Zofran) 8 mg PRN Q6HRS PRN IV NAUSEA/VOMITING 1ST CHOICE; Start 09/22/18 at 11:00 Active Scripts Active Ondansetron Odt (Ondansetron) 4 Mg Tab.rapdis 1 Tab PO PRN Q6-8HRS Protonix (Pantoprazole Sodium) 40 Mg Tablet.dr 1 Tab PO DAILY Reported Zocor (Simvastatin) 40 Mg Tablet 40 Mg PO HS Toprol Xl (Metoprolol Succinate) 25 Mg Tab.er.24h 25 Mg PO HS Aspir 81 (Aspirin) 81 Mg Tablet.dr 81 Mg PO DAILY Vital Signs Vital Signs Date Time Temp Pulse Resp B/P (MAP) Pulse Ox O2 Delivery O2 Flow Rate FiO2 09/22/18 11:29 98.2 75 18 114/68 (83) 96 Room Air 98.2 09/22/18 08:00 94.0 General: Alert, Oriented X3, Cooperative, No acute distress HEENT: Atraumatic, EOMI, Mucous membr. moist/pink Lungs: Clear to auscultation Rectal Exam: not examined Extremities: No cyanosis Neuro: Normal speech, Cranial nerves 3-12 NL Psych/Mental Status: Mood NL Vitals Vitals Vital Signs Date Time Temp Pulse Resp B/P (MAP) Pulse Ox O2 Delivery O2 Flow Rate FiO2 09/22/18 15:11 98.3 73 18 84/58 (67) 98 Room Air 98.3 09/22/18 08:[address] of the abdomen and pelvis with contrast, 09/11/2018: HISTORY: Diarrhea, nausea and vomiting, right abdominal pain, possible appendicitis Multidetector CT imaging was performed following oral and IV administration of contrast. Comparison is made to a study from 08/09/2018. There is minimal streaky atelectasis or scarring posteriorly in the lung bases. Moderate coronary artery calcifications are present. The liver demonstrates an unusual configuration with bowel loops extending along its anterior aspect of the to the level of the right diaphragm. There are 2 cysts in the superior aspect of the liver. There is no evidence of bile duct dilatation. The gallbladder is unremarkable. No pancreatic abnormality is seen. The spleen is of normal size. There are several simple cysts in both kidneys. The kidneys show no evidence of obstruction. There is mild aortoiliac calcific plaquing without evidence of aneurysm. No abdominal or pelvic adenopathy is seen. The prostate gland is mildly enlarged. The bowel loops are not dilated. The appendix is well visualized. It contains a tiny radiopacity. The appendix is not enlarged and there is no pericholecystic edema. The inguinal rings are mildly dilated without evidence of bowel herniation. No free fluid or free air is evident in the abdomen or pelvis. Both inguinal rings are mildly dilated. No bowel herniation is evident. IMPRESSION: 1. Renal and hepatic cysts. 2. Mild nonspecific prostatic enlargement. 3. Dilated inguinal rings without evidence of bowel herniation. 4. No acute abdominal or pelvic abnormality is detected. PQRS Compliance Statement: One or more of the following individualized dose reduction techniques were utilized for this examination: 1. Automated exposure control 2. Adjustment of the mA and/or kV according to patient size 3. Use of iterative reconstruction technique Electronically signed by: Azeem Anaya MD (09/11/2018 3:29 PM) [facility] DICTATED and SIGNED BY: AZEEM ANAYA MD DATE: 09/11/18 1529 VTE Prophylaxis Ordered VTE Prophylaxis Devices: Yes VTE Pharmacological Prophylaxi: Yes Assessment/Plan Assessment/Plan impression Chief Complaint Postop day 7 colon resection Chilaiditi's syndrome s/p right hemicolectomy PSVT RLQ pain/R flank pain nephrolithiasis L renal cyst GERD HLD HTN OA hx of AR Prior back surgery 46 min pt exam, chart review, > 50% of time spent with exam, chart review, pt care coordination PORTABLE CHEST 1V Clinical indications: Dizziness and chest pain since yesterday. COMPARISON: November 2016. August 09, 2018. Findings: Mild blunting of the left lateral costophrenic angle is seen consistent with a small left-sided pleural effusion with is unchanged. No right-sided pleural effusion is seen. There is mild scarring of the left midlung zone which is stable. No new lung consolidation or pulmonary edema is seen. No pneumothorax is seen. The heart size, pulmonary vasculature, mediastinum and both spike are stable. Impression: Stable small left sided pleural effusion. No new lung infiltrate. Electronically signed by: Wing Rhoades MD (09/11/2018 10:57 AM) [place] [id number] DICTATED and SIGNED BY: WING RHOADES MD DATE: 09/11/18 1057 History of Present Illness History of Present Illness Patient seen and examined Would site clean and intact S/P partial colon resection p.o. day 6 Denies having BM or flatus IV morphine discontinued Discussed with nurse Vitals Vitals Vital Signs Date Time Temp Pulse Resp B/P (MAP) Pulse Ox O2 Delivery O2 Flow Rate FiO2 09/22/18 08:42 79 101/62 09/22/18 07:00 98.0 16 100 Room Air 98.0 09/21/18 08:00 94.0 Physical Exam General: Alert, Oriented X3, Cooperative, No acute distress Heart: Regular rate, Normal S1, Normal S2, Other (2/6 systolic murmur, intermittant SVT) Lungs: Clear Abdomen: Normal bowel sounds, Soft, No tenderness Extremities: No clubbing, No cyanosis Skin: No rashes, No breakdown DAQUAN TANG MD September 24, 2018 14:05
[2018-09-29] MEDS ORDERED: LEVO500T59 PO (10:32)
[2018-09-29] MEDS ORDERED: HYDR-2761 PO (10:32)
[2018-09-29] MEDS ORDERED: ONDA4TAB12 PO (10:32)
== END 2018-09-22 15:55 | DRG 330 ==
LOC: ER 09:46 → 2 NORTH 10:32
PROVIDERS: ADMIT Internal Medicine; ATTEND Internal Medicine
PROC: 0DTF4ZZ Resection of Right Large Intestine, Percutaneous Endoscopic Approach (ICD-10-PCS; principal; 2018-09-13 12:30)
DX: Q43.3 Congenital malformations of intestinal fixation (principal); I47.1 Supraventricular tachycardia; J90 Pleural effusion, not elsewhere classified; K56.7 Ileus, unspecified; I49.3 Ventricular premature depolarization; E87.6 Hypokalemia; N20.0 Calculus of kidney; E78.5 Hyperlipidemia, unspecified; F41.9 Anxiety disorder, unspecified; G89.29 Other chronic pain; I10 Essential (primary) hypertension; I25.10 Atherosclerotic heart disease of native coronary artery without angina pectoris; I25.2 Old myocardial infarction; K21.9 Gastro-esophageal reflux disease without esophagitis; K63.5 Polyp of colon; M19.90 Unspecified osteoarthritis, unspecified site; N28.1 Cyst of kidney, acquired; N40.1 Benign prostatic hyperplasia with lower urinary tract symptoms; Z82.49 Family history of ischemic heart disease and other diseases of the circulatory system; Z91.19 Patient's noncompliance with other medical treatment and regimen; Z87.442 Personal history of urinary calculi; Z95.5 Presence of coronary angioplasty implant and graft; Z90.49 Acquired absence of other specified parts of digestive tract
CPT/HCPCS: 36415; 71045; 74177; 80047; 80048; 80053; 81001; 82550; 82962; 83605; 83690; 83735; 83880; 84443; 84484; 85007; 85025; 85379; 88305; 88309; 93005; 96361; 96374; C9113; J0171; J0282; J0694; J0780; J1100; J1160; J1650; J1885; J2001; J2060; J2250; J2270; J2370; J2405; J2704; J2710; J3010; J3490; J7030; J7040; J7120; J8597; Q0162; Q0169; Q9966; Q9967; 97116; 97530; 97535; 99285-25

== ENCOUNTER 2018-09-24 20:54 | Emergency (ER) | payer MEDICARE ==
[~2018-09-24] VITALS: Ht 172.7 cm; Wt 79.4 kg
[~2018-09-24 20:54] MED LIST changes: +AMIO200T4 PO; +MECL12.52 PO; +METO25TA4 PO; +POLY17PO28 PO
[2018-09-24 21:00] VITALS: BP 141/83
--- NOTE | 2018-09-24 21:50 | RAD ---
Right hip 2 views including AP pelvis 09/24/2018. Reason for exam: Pain after falling. Views of the right hip show no apparent fracture or dislocation. There are mild arthritic changes. AP view of the pelvis shows some rotation of the pelvis without apparent fracture or dislocation. No destructive process is seen. IMPRESSION: No acute abnormality in the right hip. Electronically signed by: Ole Coburn Jr., MD (09/24/2018 9:48 PM) [facility]
--- NOTE | 2018-09-24 22:03 | PHYS DOC ---
Past Medical History Past Medical History: Hypertension, Kidney Stone, ME, Other Additional Past Medical Histor: ME(12-15 YRS AGO)CHRONIC ABD PAIN Past Surgical History: Other Additional Past Surgical Histo: cardiac stents, ABDOMINAL PROCEDURE Alcohol Use: Rarely Drug Use: None Adult General Chief Complaint Chief Complaint: HIP PAIN HPI HPI Patient is a 73 year old [f__sex] who presents with [] Review of Systems Review of Systems Constitutional: Denies fever or chills [] Eyes: Denies change in visual acuity, redness, or eye pain [] HENT: Denies nasal congestion or sore throat [] Respiratory: Denies cough or shortness of breath [] Cardiovascular: No additional information not addressed in HPI [] GI: Denies abdominal pain, nausea, vomiting, bloody stools or diarrhea [] : Denies dysuria or hematuria [] Musculoskeletal: Denies back pain or joint pain [] Integument: Denies rash or skin lesions [] Neurologic: Denies headache, focal weakness or sensory changes [] Endocrine: Denies polyuria or polydipsia [] All other systems were reviewed and found to be within normal limits, except as documented in this note. Allergies Allergies Allergies Coded Allergies Type Severity Reaction Last Updated Verified No Known Drug Allergies 09/08/18 No Physical Exam Physical Exam Constitutional: Well developed, well nourished, no acute distress, non-toxic appearance. [] HENT: Normocephalic, atraumatic, bilateral external ears normal, oropharynx moist, no oral exudates, nose normal. [] Eyes: PERRLA, EOMI, conjunctiva normal, no discharge. [] Neck: Normal range of motion, no tenderness, supple, no stridor. [] Cardiovascular:Heart rate regular rhythm, no murmur [] Lungs & Thorax: Bilateral breath sounds clear to auscultation [] Abdomen: Bowel sounds normal, soft, no tenderness, no masses, no pulsatile masses. [] Skin: Warm, dry, no erythema, no rash. [] Back: No tenderness, no CVA tenderness. [] Extremities: No tenderness, no cyanosis, no clubbing, ROM intact, no edema. [] Neurologic: Alert and oriented X 3, normal motor function, normal sensory function, no focal deficits noted. [] Psychologic: Affect normal, judgement normal, mood normal. [] Current Patient Data Vital Signs Vital Signs Date Time Temp Pulse Resp B/P (MAP) Pulse Ox O2 Delivery O2 Flow Rate FiO2 09/24/18 21:00 98.2 79 18 141/83 (102) 96 Room Air 98.2 EKG EKG [] Radiology/Procedures Radiology/Procedures PROCEDURE: HIP RIGHT 2V WITH PELVIS Right hip 2 views including AP pelvis 09/24/2018. Reason for exam: Pain after falling. Views of the right hip show no apparent fracture or dislocation. There are mild arthritic changes. AP view of the pelvis shows some rotation of the pelvis without apparent fracture or dislocation. No destructive process is seen. IMPRESSION: No acute abnormality in the right hip. Electronically signed by: Ole Coburn Jr., MD (09/24/2018 9:48 PM) [facility] Course & Med Decision Making Course & Med Decision Making Pertinent Labs and Imaging studies reviewed. (See chart for details) [] Dragon Disclaimer Dragon Disclaimer This electronic medical record was generated, in whole or in part, using a voice recognition dictation system. Departure Departure Impression: Primary Impression: Fall Additional Impression: Hip pain, right Disposition: 01 HOME, SELF-CARE (back to [facility]) Condition: STABLE Referrals: JENNI BOURNE MD (PCP) ESTELA DE LA O MD Patient Instructions: Fall Prevention and Home Safety, [id number], Hip Pain Problem Qualifiers Primary Impression: Fall Encounter type: initial encounter Qualified Codes: W19.XXXA - Unspecified fall, initial encounter ROSA MONTELONGO DO September 24, 2018 22:02
[2018-09-24] MEDS ORDERED: ONDANSETRON ODT 4 MG TAB.RAPDIS. PO ONE (22:30)
== END 2018-09-24 23:05 | disposition home or self-care (01) ==
LOC: ER 20:54
DX: M25.551 Pain in right hip (principal); G89.11 Acute pain due to trauma; R41.0 Disorientation, unspecified; I10 Essential (primary) hypertension; I25.2 Old myocardial infarction; G89.29 Other chronic pain; Z87.442 Personal history of urinary calculi; Z95.5 Presence of coronary angioplasty implant and graft; W18.39XA Other fall on same level, initial encounter; Y93.89 Activity, other specified; Y92.89 Other specified places as the place of occurrence of the external cause; Y99.8 Other external cause status
CPT/HCPCS: 73502; 99284; Q0162

== ENCOUNTER 2018-09-27 13:30 | Inpatient (IN) | payer MEDICARE ==
[~2018-09-27] VITALS: Ht 171.4 cm; Wt 79.0 kg
[2018-09-27 14:25] LABS: BASO % 0 % (0-3); EOS # 0.1 x10^3/uL (0.0-0.7); EOS % 1 % (0-3); HEMATOCRIT 37.4 % (39.0-53.0); HEMOGLOBIN 12.4 g/dL (13.0-17.5); LYMPH # 0.8 x10^3/uL (1.0-4.8); LYMPH % 10 % (24-48); MEAN CORPUSCULAR HEMOGLOBIN 30 pg (25-35); MEAN CORPUSCULAR HGB CONC 33 g/dL (31-37); MEAN CORPUSCULAR VOLUME 90 fL (79-100); MONO # 0.6 x10^3/uL (0.0-1.1); MONO % 8 % (0-9); NEUT # 6.5 x10^3uL (1.8-7.7); NEUT % 81 % (31-73); PLATELET COUNT 209 x10^3/uL (140-400); RED BLOOD COUNT 4.17 x10^6/uL (4.30-5.70); WHITE BLOOD COUNT 8.1 x10^3/uL (4.0-11.0)
[2018-09-27] MEDS ORDERED: IV NORMAL SALINE 1000ML BAG 1,000 ML IV SCH (14:30)
[2018-09-27 14:40] LABS: CALCIUM 8.3 mg/dL (8.5-10.1); CREATININE 0.9 mg/dL (0.7-1.3); GFR 82.3
[2018-09-27 14:50] LABS: BILIRUBIN,URINE SMALL (NEG); CLARITY,URINE CLEAR; COLOR,URINE AMBER; NITRITE,URINE NEGATIVE (NEG); PH,URINE 5.5; PROTEIN,URINE NEGATIVE (NEG-TRACE)
[2018-09-27 14:52] LABS: ALBUMIN 2.9 g/dL (3.4-5.0); ALBUMIN/GLOBULIN RATIO 0.9 (1.0-1.7); TOTAL BILIRUBIN 0.6 mg/dL (0.2-1.0)
[2018-09-27 14:58] LABS: HYALINE CASTS, URINE MODERATE /HPF
[2018-09-27 15:00] LABS: AMORPHOUS SEDIMENT,UR PRESENT /HPF; BACTERIA,URINE 0 /HPF (0-FEW); RBC,URINE 0 /HPF (0-2)
[2018-09-27] MEDS ORDERED: CONTRAST GIVEN. MC PRN (15:15)
[2018-09-27] MEDS ORDERED: IOHEXOL 300 MG/ML 100ML VIAL. IV ONE (15:15)
[2018-09-27] MEDS ORDERED: IOHEXOL 240 MG/ML 50ML VIAL. PO ONE (15:15)
[2018-09-27] MEDS ORDERED: IV NORMAL SALINE 1000ML BAG 1,000 ML IV ONE (16:00)
--- NOTE | 2018-09-27 16:22 | EKG ---
[facility] [address] [place] [address] Test Date: 2018-09-27 Test Time: 15:34:00 Pat Name: DONALD DELONG Department: Room: Gender: Mri Manager: : 1945 Requested By: LEA BAIRD Order Number: [id number] Reading MD: Measurements Intervals [place] Rate: 71 P: 30 VT: 172 QRS: -32 QRSD: 90 T: 12 QT: 410 QTc: 451 Interpretive Statements SINUS RHYTHM ABNORMAL LEFT AXIS DEVIATION R-S TRANSITION ZONE IN V LEADS DISPLACED TO THE LEFT LEFT ANTERIOR FASCICULAR BLOCK T ABNORMALITY IN ANTEROLATERAL LEADS ABNORMAL ECG RI6.01 Unconfirmed report No previous ECG available for comparison
--- NOTE | 2018-09-27 16:31 | RAD ---
CT of the abdomen and pelvis with contrast, 09/27/2018: HISTORY: Postop abdominal pain, recent colon resection Multidetector CT imaging was performed following oral and IV administration of contrast. Comparison is made to a study from 09/11/2018. There is mild streaky scarring and/or atelectasis in the lung bases. The heart is mildly enlarged with moderate coronary artery calcifications. The liver demonstrates an unusual configuration with a large indentation in the anterior aspect of the right lobe. There are 2 cysts in the right lobe. No gallstones are seen. The pancreas is unremarkable. The spleen is of normal size. There are multiple renal cysts, predominantly on the left. A small intrarenal calculus is present in the left. The kidneys show no evidence of obstruction. There is mild aortoiliac iliac calcific plaquing. No abdominal or pelvic adenopathy is seen. There is mild nonspecific prostatic enlargement. A few scattered colonic diverticula are noted. There has been interval resection of the right colon with an ileocolic anastomosis evident in the right upper quadrant. There is no evidence of obstruction. There is mild mural thickening involving loops of distal ileum. There is mild associated streaky edema in the mesentery in this region. These edematous appearing small bowel loops extend into the right upper quadrant along the anterior aspect of the liver. They lie adjacent to the gallbladder. No intrinsic gallbladder abnormality is seen. No free air or significant free fluid is evident in the abdomen or pelvis. The inguinal rings are dilated. They contain fat and spermatic cord structures. No bowel herniation is evident. IMPRESSION: 1. Interval right colon resection. 2. Mural thickening involving the loops of distal ileum in the right mid and upper abdomen compatible with nonspecific edema. This could be on an ischemic or infectious basis. 3. Bilateral fat-containing inguinal hernias. 4. Additional miscellaneous chronic findings as described above. PQRS Compliance Statement: One or more of the following individualized dose reduction techniques were utilized for this examination: 1. Automated exposure control 2. Adjustment of the mA and/or kV according to patient size 3. Use of iterative reconstruction technique Electronically signed by: Azeem Anaya MD (09/27/2018 4:28 PM) [facility]
[2018-09-27 16:42] LABS: FECAL OB PT POSITIVE (NEG)
--- NOTE | 2018-09-27 16:43 | PHYS DOC ---
Past Medical History Past Medical History: Hypertension, Kidney Stone, [place], Other Additional Past Medical Histor: PR(12-15 YRS AGO)CHRONIC ABD PAIN Past Surgical History: Other Additional Past Surgical Histo: cardiac stents, ABDOMINAL PROCEDURE, colon resection Alcohol Use: None Drug Use: None Adult General Chief Complaint Chief Complaint: WEAKNESS/GENERALIZED HPI HPI Patient is a 73 year old male who presents with complaining of dizziness and weakness. Patient had right colon resection on September 10 and complaining of generalized weakness and dizziness with episodes of diarrhea since yesterday. Patient states he had more than 10 episodes of nonbloody diarrhea since yester day with nausea and today had episodes of dizziness and fall without loss of consciousness. Patient complaining of right lower quadrant abdominal pain as a constant pain and does not want to have pain medication. Patient denies urinary symptoms, fever and chills, chest pain, shortness of breath, focal neuro deficit. Review of Systems Review of Systems Constitutional: Denies fever or chills [] Eyes: Denies change in visual acuity, redness, or eye pain [] HENT: Denies nasal congestion or sore throat [] Respiratory: Denies cough or shortness of breath [] Cardiovascular: No additional information not addressed in HPI [] GI: Reports abdominal pain, nausea, diarrhea [] : Denies dysuria or hematuria [] Musculoskeletal: Denies back pain or joint pain [] Integument: Denies rash or skin lesions [] Neurologic: Denies headache, focal weakness or sensory changes [] Endocrine: Denies polyuria or polydipsia [] All other systems were reviewed and found to be within normal limits, except as documented in this note. Current Medications Current Medications Current Medications Medications (Trade) Dose Ordered Sig/Kaylie Start Time Stop Time Status Last Admin Dose Admin Info (CONTRAST GIVEN -- Rx MONITORING) 1 each PRN DAILY PRN 09/27/18 15:15 09/29/18 15:14 Iohexol (Omnipaque 240 Mg/ml) 30 ml 1X ONCE 09/27/18 15:15 09/27/18 15:16 DC 09/27/18 15:42 30 ML Iohexol (Omnipaque 300 Mg/ml) 75 ml 1X ONCE 09/27/18 15:15 09/27/18 15:16 DC 09/27/18 15:42 75 ML Sodium Chloride 1,000 ml @ 1,000 mls/hr Q1H 5/22/19 14:30 09/27/18 15:29 DC 09/27/18 14:26 1,000 MLS/HR Allergies Allergies Allergies Coded Allergies Type Severity Reaction Last Updated Verified No Known Drug Allergies 09/08/18 No Physical Exam Physical Exam Constitutional: Well developed, well nourished, mild distress, non-toxic appearance. [] HENT: Normocephalic, atraumatic, oropharynx dry. Eyes: PERRLA, EOMI, conjunctiva normal, no discharge. [] Neck: Normal range of motion, no tenderness, supple, no stridor. [] Cardiovascular:Heart rate regular rhythm, no murmur [] Lungs & Thorax: Bilateral breath sounds clear to auscultation [] Abdomen: Bowel sounds hypoactive, soft, mildly distended with gas, clean surgical wound, right lower quadrant tenderness, no masses, no pulsatile masses. [] Skin: Warm, dry, no erythema, no rash. [] Back: No tenderness, no CVA tenderness. [] Extremities: No tenderness, no cyanosis, no clubbing, ROM intact, no edema. [] Neurologic: Alert and oriented X 3, normal motor function, normal sensory f unction, no focal deficits noted. [] Psychologic: Affect normal, judgement normal, mood normal. [] Current Patient Data Vital Signs Vital Signs Date Time Temp Pulse Resp B/P (MAP) Pulse Ox O2 Delivery O2 Flow Rate FiO2 09/27/18 13:35 97.7 78 24 102/63 (76) 96 Room Air 97.7 Lab Values Laboratory Tests Test 09/27/18 14:00 09/27/18 14:40 White Blood Count 8.1 x10^3/uL (4.0-11.0) Red Blood Count 4.17 x10^6/uL (4.30-5.70) L Hemoglobin 12.4 g/dL (13.0-17.5) L Hematocrit 37.4 % (39.0-53.0) L Mean Corpuscular Volume 90 fL (79-100) Mean Corpuscular Hemoglobin 30 pg (25-35) Mean Corpuscular Hemoglobin Concent 33 g/dL (31-37) Red Cell Distribution Width 15.0 % (11.5-14.5) H Platelet Count 209 x10^3/uL (140-400) Neutrophils (%) (Auto) 81 % (31-73) H Lymphocytes (%) (Auto) 10 % (24-48) L Monocytes (%) (Auto) 8 % (0-9) Eosinophils (%) (Auto) 1 % (0-3) Basophils (%) (Auto) 0 % (0-3) Neutrophils # (Auto) 6.5 x10^3uL (1.8-7.7) Lymphocytes # (Auto) 0.8 x10^3/uL (1.0-4.8) L Monocytes # (Auto) 0.6 x10^3/uL (0.0-1.1) Eosinophils # (Auto) 0.1 x10^3/uL (0.0-0.7) Basophils # (Auto) 0.0 x10^3/uL (0.0-0.2) Prothrombin Time 14.0 SEC (11.7-14.0) Prothrombin Time INR 1.1 (0.8-1.1) Sodium Level 139 mmol/L (136-145) Potassium Level 4.0 mmol/L (3.5-5.1) Chloride Level 103 mmol/L (98-107) Carbon Dioxide Level 28 mmol/L (21-32) Anion Gap 8 (6-14) Blood Urea Nitrogen 16 mg/dL (8-26) Creatinine 0.9 mg/dL (0.7-1.3) Estimated GFR (Cockcroft-Gault) 82.3 BUN/Creatinine Ratio 18 (6-20) Glucose Level 111 mg/dL (70-99) H Lactic Acid Level 1.0 mmol/L (0.4-2.0) Calcium Level 8.3 mg/dL (8.5-10.1) L Total Bilirubin 0.6 mg/dL (0.2-1.0) Aspartate Amino Transferase (AST) 27 U/L (15-37) Alanine Aminotransferase (ALT) 20 U/L (16-63) Alkaline Phosphatase 58 U/L (46-116) Creatine Kinase 125 U/L (39-308) Troponin I Quantitative 0.025 ng/mL (0.000-0.055) OO-Ope-X-Type Natriuretic Peptide 1474 pg/mL (0-449) H Total Protein 6.0 g/dL (6.4-8.2) L Albumin 2.9 g/dL (3.4-5.0) L Albumin/Globulin Ratio 0.9 (1.0-1.7) L Lipase 809 U/L (73-393) H Urine Collection Type Unknown Urine Color Radha Urine Clarity Clear Urine pH 5.5 Urine Specific Mobile 1.025 Urine Protein Negative mg/dL (NEG-TRACE) Urine Glucose (UA) Negative mg/dL (NEG) Urine Ketones (Stick) Trace mg/dL (NEG) Urine Blood Negative (NEG) Urine Nitrite Negative (NEG) Urine Bilirubin Small (NEG) Urine Urobilinogen Dipstick 1.0 mg/dL (0.2 mg/dL) Urine Leukocyte Esterase Negative (NEG) Urine RBC 0 /HPF (0-2) Urine WBC 1-4 /HPF (0-4) Urine Amorphous Sediment Present /HPF Urine Bacteria 0 /HPF (0-FEW) Urine Hyaline Casts Moderate /HPF Urine Mucus Marked /LPF Laboratory Tests 09/27/18 14:00 Laboratory Tests 09/27/18 14:00 EKG EKG EKG Interpreted by me. EKG at 1534 showed normal sinus rhythm at rate of 71, left axis deviation, left anterior fascicular block, T-wave abnormalities anterior leads, no acute ST and T-wave abnormalities. Radiology/Procedures Radiology/Procedures [facility] [address] [place] [address] IMAGING REPORT Signed PATIENT: DONALD DELONG ACCOUNT: [id number] : 1945 LOCATION: ER AGE: 73 SEX: M EXAM STATUS: REG ER ORD. PHYSICIAN: LEA BAIRD MD REASON: abdominal pain after surgery PROCEDURE: CT ABD PELV W/ORAL&IV CONTRAST CT of the abdomen and pelvis with contrast, 09/27/2018: HISTORY: Postop abdominal pain, recent colon resection Multidetector CT imaging was performed following oral and IV administration of contrast. Comparison is made to a study from 09/11/2018. There is mild streaky scarring and/or atelectasis in the lung bases. The heart is mildly enlarged with moderate coronary artery calcifications. The liver demonstrates an unusual configuration with a large indentation in the anterior aspect of the right lobe. There are 2 cysts in the right lobe. No gallstones are seen. The pancreas is unremarkable. The spleen is of normal size. There are multiple renal cysts, predominantly on the left. A small intrarenal calculus is present in the left. The kidneys show no evidence of obstruction. There is mild aortoiliac iliac calcific plaquing. No abdominal or pelvic adenopathy is seen. There is mild nonspecific prostatic enlargement. A few scattered colonic diverticula are noted. There has been interval resection of the right colon with an ileocolic anastomosis evident in the right upper quadrant. There is no evidence of obstruction. There is mild mural thickening involving loops of distal ileum. There is mild associated streaky edema in the mesentery in this region. These edematous appearing small bowel loops extend into the right upper quadrant along the anterior aspect of the liver. They lie adjacent to the gallbladder. No intrinsic gallbladder abnormality is seen. No free air or significant free fluid is evident in the abdomen or pelvis. The inguinal rings are dilated. They contain fat and spermatic cord structures. No bowel herniation is evident. IMPRESSION: 1. Interval right colon resection. 2. Mural thickening involving the loops of distal ileum in the right mid and upper abdomen compatible with nonspecific edema. This could be on an ischemic or infectious basis. 3. Bilateral fat-containing inguinal hernias. 4. Additional miscellaneous chronic findings as described above. PQRS Compliance Statement: One or more of the following individualized dose reduction techniques were utilized for this examination: 1. Automated exposure control 2. Adjustment of the mA and/or kV according to patient size 3. Use of iterative reconstruction technique Electronically signed by: Azeem Anaya MD (09/27/2018 4:28 PM) [facility] DICTATED and SIGNED BY: AZEEM ANAYA MD DATE: 09/27/18 9617 Course & Med Decision Making Course & Med Decision Making Pertinent Labs and Imaging studies reviewed. (See chart for details) Evaluation of patient in ER showed 73-year-old male patient with episodes of nausea and diarrhea and abdominal pain after recent surgery with dizziness and near syncope. Patient had orthostatic hypotension without tachycardia. Labs was unremarkable for mild elevation of lipase.. CT of abdomen and pelvis showed inflammatory small intestine with possible infection. On-call surgeon Dr Springer was consulted at 1645 and recommended to admit patient to hospitalist. Patient requiring admission for further evaluation and treatment. Discussed with Dr. Goel who is in agreement with admission. Discussed findings and plan with patient and family, who acknowledge understanding and agreement. Dragon Disclaimer Dragon Disclaimer This electronic medical record was generated, in whole or in part, using a voice recognition dictation system. Departure Departure Impression: Primary Impression: Pancreatitis Additional Impressions: Abdominal pain Dizziness Disposition: ADMITTED INPATIENT Admitting Physician: Other (Dr. Goel accepted admission at 1707) Condition: IMPROVED Referrals: JENNI BOURNE MD (PCP) Problem Qualifiers Primary Impression: Pancreatitis Chronicity: acute Pancreatitis type: unspecified pancreatitis type Acute pancreatitis complication: unspecified Qualified Codes: K85.90 - Acute pancreatitis without necrosis or infection, unspecified Additional Impressions: Abdominal pain Abdominal location: unspecified location Qualified Codes: R10.9 - Unspecified abdominal pain LEA BAIRD MD September 27, 2018 16:43
[2018-09-27] MEDS ORDERED: ONDANSETRON PF 4 MG/2 ML VIAL. IV PRN (17:30)
[2018-09-27] MEDS ORDERED: METO-239 PO (18:14)
[2018-09-27 18:18] VITALS: BP 129/78
[2018-09-27] MEDS: IV NORMAL SALINE 1000ML BAG 1,000 ML IV SCH (18:42)
[2018-09-27 19:00] VITALS: BP 142/61
[2018-09-27] MEDS: SIMVASTATIN 40 MG TABLET. PO SCH (20:01)
[2018-09-27] MEDS: METOPROLOL SUCC 24HR ER 25 MG TAB.ER.24H. PO SCH (20:01)
[2018-09-27] MEDS: MAG HYDROX/ALUMINUM HYD/SIMETH 30 ML ORAL.SUSP PO PRN (22:32)
[2018-09-27 23:00] VITALS: BP 120/63
[2018-09-28] MEDS ORDERED: CYCLOBENZAPRINE 10 MG TABLET. PO PRN (00:30)
[2018-09-28] MEDS: IV NORMAL SALINE 1000ML BAG 1,000 ML IV SCH ×3 (00:40→13:23)
[2018-09-28 03:00] VITALS: BP 134/62
[2018-09-28 07:15] VITALS: BP 137/80
[2018-09-28] MEDS: ASPIRIN ENTERIC COATED 81 MG TABLET.DR. PO SCH (08:21)
[2018-09-28] MEDS: PANTOPRAZOLE 40 MG TABLET.DR. PO SCH (08:21)
[2018-09-28] MEDS: AMIODARONE HCL 200 MG TABLET. PO SCH (08:22)
[2018-09-28] MEDS ORDERED: ONDANSETRON ODT 4 MG TAB.RAPDIS. PO PRN (09:00)
[2018-09-28] MEDS ORDERED: ACETAMINOPHEN 500 MG TABLET PO PRN (09:00)
--- NOTE | 2018-09-28 10:26 | PDOC2 ---
CONSULT Date of Consult Date of Consult DATE: 09/28/18 TIME: 10:22 Reason for Consult Reason for Consult: abd pain, diarrhea Referring Physician Referring Physician: Dr. Goel Identification/Chief Complaint Chief Complaint abd pain, diarrhea Source Source: Chart review, Patient History of Present Illness Reason for Visit: 73 yo M s/p lap right colon few weeks ago. Pt initial felt well, but developed crampy abd pain and multiple diarrhea. Pt also notes severe fatigue and generally not feeling well. Past Medical History Cardiovascular: HTN, VA, Hyperlipidemia Pulmonary: No pertinent hx CENTRAL NERVOUS SYSTEM: Other GI: GERD Heme/Onc: No pertinent hx Hepatobiliary: No pertinent hx Psych: No pertinent hx Musculoskeletal: low back pain, Osteoarthritis Infectious disease: No pertinent hx Renal/: Other Endocrine: No pertinent hx Past Surgical History Past Surgical History: Tonsillectomy, Colon Resection, Other Family History Family History: Coronary Artery Disease, Hypertension Social History ALCOHOL: none Drugs: None Lives: Alone Current Problem List Problem List Problems Medical Problems: (1) Dizziness Status: Acute (2) Pancreatitis Status: Acute Current Medications Current Medications Current Medications Sodium Chloride 1,000 ml @ 1,000 mls/hr Q1H IV Last administered on 09/27/18at 14:26; Start 09/27/18 at 14:30; Stop 09/27/18 at 15:29; Status DC Iohexol (Omnipaque 240 Mg/ml) 30 ml 1X ONCE PO Last administered on 09/27/18at 15:42; Start 09/27/18 at 15:15; Stop 09/27/18 at 15:16; Status DC Iohexol (Omnipaque 300 Mg/ml) 75 ml 1X ONCE IV Last administered on 09/27/18at 15:42; Start 09/27/18 at 15:15; Stop 09/27/18 at 15:16; Status DC Info (CONTRAST GIVEN -- Rx MONITORING) 1 each PRN DAILY PRN MC SEE COMMENTS; Start 09/27/18 at 15:15; Stop 09/29/18 at 15:14 Sodium Chloride 1,000 ml @ 1,000 mls/hr 1X ONCE IV ; Start 09/27/18 at 16:00; Stop 09/27/18 at 16:59; Status DC Ondansetron HCl (Zofran) 4 mg PRN Q8HRS PRN IV NAUSEA/VOMITING; Start 09/27/18 at 17:30; Stop 09/28/18 at 08:55; Status DC Sodium Chloride 1,000 ml @ 150 mls/hr Q6H40M IV Last administered on 09/28/18 08:21; Start 09/27/18 at 17:23; Stop 09/28/18 at 17:22 Amiodarone HCl (Cordarone) 200 mg DAILY PO Last administered on 09/28/18 08:22; Start 09/28/18 at 09:00 Aspirin (Ecotrin) 81 mg DAILY PO Last administered on 09/28/18 08:21; Start 09/28/18 at 09:00 Metoprolol Succinate (Toprol Xl) 25 mg QHS PO Last administered on 09/27/18 20:01; Start 09/27/18 at 21:00 Pantoprazole Sodium (Protonix) 40 mg DAILYAC PO Last administered on 09/28/18 08:21; Start 09/28/18 at 07:30 Simvastatin (Zocor) 40 mg QHS PO Last administered on 09/27/18at 20:01; Start 09/27/18 at 21:00 Al Hydroxide/Mg Hydroxide (Mylanta Plus Xs) 10 ml TID PRN PRN PO HEARTBURN / GAS Last administered on 09/27/18at 22:32; Start 09/27/18 at 22:30 Cyclobenzaprine HCl (Flexeril) 5 mg TID PRN PRN PO MUSCLE SPASMS Last administered on 09/28/18at 00:37; Start 09/28/18 at 00:30 Acetaminophen/ Hydrocodone Bitart (Lortab 5/325) 1 tab PRN Q6HRS PRN PO MODERATE PAIN; Start 09/28/18 at 00:30 Acetaminophen (Tylenol) 500 mg PRN Q6HRS PRN PO HEADACHE / TEMP; Start 09/28/18 at 09:00 Acetaminophen/ Codeine Phosphate (Tylenol #3) 1 tab PRN Q6HRS PRN PO PAIN MILD; Start 09/28/18 at 09:00 Ondansetron HCl (Zofran) 4 mg PRN Q6HRS PRN IV NAUSEA/VOMITING; Start 09/28/18 at 09:00 Ondansetron HCl (Zofran Odt) 4 mg PRN Q6HRS PRN PO NAUSEA/VOMITING; Start 09/28/18 at 09:00 Active Scripts Active Amiodarone Hcl 200 Mg Tablet 200 Mg PO DAILY 30 Days Ondansetron Odt (Ondansetron) 4 Mg Tab.rapdis 1 Tab PO PRN Q6-8HRS Protonix (Pantoprazole Sodium) 40 Mg Tablet. 1 Tab PO DAILY Reported Metoprolol Succinate ( Xl ) (Metoprolol Succinate) 25 Mg Tab.er.24h 25 Mg PO DAILY Zocor (Simvastatin) 40 Mg Tablet 40 Mg PO HS Aspir 81 (Aspirin) 81 Mg Tablet.dr 81 Mg PO DAILY Allergies Allergies: Coded Allergies: No Known Drug Allergies (Unverified , 09/08/18) ROS General: YES: Fatigue Gastrointestinal: Yes Nausea, Yes Abdominal Pain, Yes Diarrhea Physical Exam General: Alert, Cooperative, mild distress HEENT: Atraumatic Lungs: Normal air movement Abdomen: Soft, Other (well healed incision, mild ecchymosis right groin, NTTP) Extremities: No clubbing, No cyanosis Skin: No rashes, No breakdown Neuro: Normal speech, Sensation intact Psych/Mental Status: Mental status NL, Mood NL Vitals VITALS Vital Signs Date Time Temp Pulse Resp B/P (MAP) Pulse Ox O2 Delivery O2 Flow Rate FiO2 09/28/18 08:22 80 137/80 09/28/18 08:00 Room Air 09/28/18 07:15 97.8 20 95 97.8 Labs Labs Laboratory Tests Test 09/27/18 14:00 09/27/18 14:40 09/27/18 16:20 White Blood Count 8.1 x10^3/uL (4.0-11.0) Red Blood Count 4.17 x10^6/uL (4.30-5.70) Hemoglobin 12.4 g/dL (13.0-17.5) Hematocrit 37.4 % (39.0-53.0) Mean Corpuscular Volume 90 fL (79-100) Mean Corpuscular Hemoglobin 30 pg (25-35) Mean Corpuscular Hemoglobin Concent 33 g/dL (31-37) Red Cell Distribution Width 15.0 % (11.5-14.5) Platelet Count 209 x10^3/uL (140-400) Neutrophils (%) (Auto) 81 % (31-73) Lymphocytes (%) (Auto) 10 % (24-48) Monocytes (%) (Auto) 8 % (0-9) Eosinophils (%) (Auto) 1 % (0-3) Basophils (%) (Auto) 0 % (0-3) Neutrophils # (Auto) 6.5 x10^3uL (1.8-7.7) Lymphocytes # (Auto) 0.8 x10^3/uL (1.0-4.8) Monocytes # (Auto) 0.6 x10^3/uL (0.0-1.1) Eosinophils # (Auto) 0.1 x10^3/uL (0.0-0.7) Basophils # (Auto) 0.0 x10^3/uL (0.0-0.2) Prothrombin Time 14.0 SEC (11.7-14.0) Prothromb Time International Ratio 1.1 (0.8-1.1) Sodium Level 139 mmol/L (136-145) Potassium Level 4.0 mmol/L (3.5-5.1) Chloride Level 103 mmol/L (98-107) Carbon Dioxide Level 28 mmol/L (21-32) Anion Gap 8 (6-14) Blood Urea Nitrogen 16 mg/dL (8-26) Creatinine 0.9 mg/dL (0.7-1.3) Estimated GFR (Cockcroft-Gault) 82.3 BUN/Creatinine Ratio 18 (6-20) Glucose Level 111 mg/dL (70-99) Lactic Acid Level 1.0 mmol/L (0.4-2.0) Calcium Level 8.3 mg/dL (8.5-10.1) Total Bilirubin 0.6 mg/dL (0.2-1.0) Aspartate Amino Transf (AST/SGOT) 27 U/L (15-37) Alanine Aminotransferase (ALT/SGPT) 20 U/L (16-63) Alkaline Phosphatase 58 U/L (46-116) Creatine Kinase 125 U/L (39-308) Troponin I Quantitative 0.025 ng/mL (0.000-0.055) BQ-Ydp-V-Type Natriuretic Peptide 1474 pg/mL (0-449) Total Protein 6.0 g/dL (6.4-8.2) Albumin 2.9 g/dL (3.4-5.0) Albumin/Globulin Ratio 0.9 (1.0-1.7) Lipase 809 U/L (73-393) Urine Collection Type Unknown Urine Color Radha Urine Clarity Clear Urine pH 5.5 Urine Specific [place] 1.025 Urine Protein Negative mg/dL (NEG-TRACE) Urine Glucose (UA) Negative mg/dL (NEG) Urine Ketones (Stick) Trace mg/dL (NEG) Urine Blood Negative (NEG) Urine Nitrite Negative (NEG) Urine Bilirubin Small (NEG) Urine Urobilinogen Dipstick 1.0 mg/dL (0.2 mg/dL) Urine Leukocyte Esterase Negative (NEG) Urine RBC 0 /HPF (0-2) Urine WBC 1-4 /HPF (0-4) Urine Amorphous Sediment Present /HPF Urine Bacteria 0 /HPF (0-FEW) Urine Hyaline Casts Moderate /HPF Urine Mucus Marked /LPF Stool Occult Blood Positive (NEG) Laboratory Tests Test 09/27/18 14:00 09/27/18 14:40 09/27/18 16:20 White Blood Count 8.1 x10^3/uL (4.0-11.0) Red Blood Count 4.17 x10^6/uL (4.30-5.70) Hemoglobin 12.4 g/dL (13.0-17.5) Hematocrit 37.4 % (39.0-53.0) Mean Corpuscular Volume 90 fL (79-100) Mean Corpuscular Hemoglobin 30 pg (25-35) Mean Corpuscular Hemoglobin Concent 33 g/dL (31-37) Red Cell Distribution Width 15.0 % (11.5-14.5) Platelet Count 209 x10^3/uL (140-400) Neutrophils (%) (Auto) 81 % (31-73) Lymphocytes (%) (Auto) 10 % (24-48) Monocytes (%) (Auto) 8 % (0-9) Eosinophils (%) (Auto) 1 % (0-3) Basophils (%) (Auto) 0 % (0-3) Neutrophils # (Auto) 6.5 x10^3uL (1.8-7.7) Lymphocytes # (Auto) 0.8 x10^3/uL (1.0-4.8) Monocytes # (Auto) 0.6 x10^3/uL (0.0-1.1) Eosinophils # (Auto) 0.1 x10^3/uL (0.0-0.7) Basophils # (Auto) 0.0 x10^3/uL (0.0-0.2) Prothrombin Time 14.0 SEC (11.7-14.0) Prothromb Time International Ratio 1.1 (0.8-1.1) Sodium Level 139 mmol/L (136-145) Potassium Level 4.0 mmol/L (3.5-5.1) Chloride Level 103 mmol/L (98-107) Carbon Dioxide Level 28 mmol/L (21-32) Anion Gap 8 (6-14) Blood Urea Nitrogen 16 mg/dL (8-26) Creatinine 0.9 mg/dL (0.7-1.3) Estimated GFR (Cockcroft-Gault) 82.3 BUN/Creatinine Ratio 18 (6-20) Glucose Level 111 mg/dL (70-99) Lactic Acid Level 1.0 mmol/L (0.4-2.0) Calcium Level 8.3 mg/dL (8.5-10.1) Total Bilirubin 0.6 mg/dL (0.2-1.0) Aspartate Amino Transf (AST/SGOT) 27 U/L (15-37) Alanine Aminotransferase (ALT/SGPT) 20 U/L (16-63) Alkaline Phosphatase 58 U/L (46-116) Creatine Kinase 125 U/L (39-308) Troponin I Quantitative 0.025 ng/mL (0.000-0.055) ES-Uve-U-Type Natriuretic Peptide 1474 pg/mL (0-449) Total Protein 6.0 g/dL (6.4-8.2) Albumin 2.9 g/dL (3.4-5.0) Albumin/Globulin Ratio 0.9 (1.0-1.7) Lipase 809 U/L (73-393) Urine Collection Type Unknown Urine Color Radha Urine Clarity Clear Urine pH 5.5 Urine Specific [place] 1.025 Urine Protein Negative mg/dL (NEG-TRACE) Urine Glucose (UA) Negative mg/dL (NEG) Urine Ketones (Stick) Trace mg/dL (NEG) Urine Blood Negative (NEG) Urine Nitrite Negative (NEG) Urine Bilirubin Small (NEG) Urine Urobilinogen Dipstick 1.0 mg/dL (0.2 mg/dL) Urine Leukocyte Esterase Negative (NEG) Urine RBC 0 /HPF (0-2) Urine WBC 1-4 /HPF (0-4) Urine Amorphous Sediment Present /HPF Urine Bacteria 0 /HPF (0-FEW) Urine Hyaline Casts Moderate /HPF Urine Mucus Marked /LPF Stool Occult Blood Positive (NEG) Images Images mild thickening of distal SB, suspect secondary to recent surgery Assessment/Plan Assessment/Plan diarrhea agree with c diff and supportive care suspect infectious diarrhea will check lactic acid to evaluate for ischemia will ask GI to evaluate Thanks for consult! ANDREA DUNCAN MD September 28, 2018 10:26
[2018-09-28 11:07] VITALS: BP 136/78
--- NOTE | 2018-09-28 11:59 | PDOC1 ---
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 CAT scan shows mesenteric edema, some swelling in the distal ileum but pancreas is normal. Lipase 809 but then again no signs of pancreatitis on CT. GS and GI consulted. Agree with checking C. difficile, okay for regular diet. Hemoccult positive. Hemodynamically stable. Claims LBM greater than 10 times a day. Was dizzy at one point. So far VS signs stable Past Medical History Cardiovascular: HTN, [place], Hyperlipidemia Pulmonary: No pertinent hx CENTRAL NERVOUS SYSTEM: Other GI: GERD Heme/Onc: No pertinent hx Hepatobiliary: No pertinent hx Psych: No pertinent hx Musculoskeletal: low back pain, Osteoarthritis Infectious disease: No pertinent hx Renal/: Other Endocrine: No pertinent hx Past Surgical History Past Surgical History: Tonsillectomy, Colon Resection, Other Family History Family History: Coronary Artery Disease, Hypertension Social History Smoke: No ALCOHOL: none Drugs: None Current Problem List Problem List Problems Medical Problems: (1) Dizziness Status: Acute (2) Pancreatitis Status: Acute Current Medications Current Medications Current Medications Sodium Chloride 1,000 ml @ 1,000 mls/hr Q1H IV Last administered on 09/27/18at 14:26; Start 09/27/18 at 14:30; Stop 09/27/18 at 15:29; Status DC Iohexol (Omnipaque 240 Mg/ml) 30 ml 1X ONCE PO Last administered on 09/27/18at 15:42; Start 09/27/18 at 15:15; Stop 09/27/18 at 15:16; Status DC Iohexol (Omnipaque 300 Mg/ml) 75 ml 1X ONCE IV Last administered on 09/27/18at 15:42; Start 09/27/18 at 15:15; Stop 09/27/18 at 15:16; Status DC Info (CONTRAST GIVEN -- Rx MONITORING) 1 each PRN DAILY PRN MC SEE COMMENTS; Start 09/27/18 at 15:15; Stop 09/29/18 at 15:14 Sodium Chloride 1,000 ml @ 1,000 mls/hr 1X ONCE IV ; Start 09/27/18 at 16:00; Stop 09/27/18 at 16:59; Status DC Ondansetron HCl (Zofran) 4 mg PRN Q8HRS PRN IV NAUSEA/VOMITING; Start 09/27/18 at 17:30; Stop 09/28/18 at 08:55; Status DC Sodium Chloride 1,000 ml @ 150 mls/hr Q6H40M IV Last administered on 09/28/18at 08:21; Start 09/27/18 at 17:23; Stop 09/28/18 at 17:22 Amiodarone HCl (Cordarone) 200 mg DAILY PO Last administered on 09/28/18at 08:22; Start 09/28/18 at 09:00 Aspirin (Ecotrin) 81 mg DAILY PO Last administered on 09/28/18 08:21; Start 09/28/18 at 09:00 Metoprolol Succinate (Toprol Xl) 25 mg QHS PO Last administered on 09/27/18at 20:01; Start 09/27/18 at 21:00 Pantoprazole Sodium (Protonix) 40 mg DAILYAC PO Last administered on 09/28/18 08:21; Start 09/28/18 at 07:30 Simvastatin (Zocor) 40 mg QHS PO Last administered on 09/27/18at 20:01; Start 09/27/18 at 21:00 Al Hydroxide/Mg Hydroxide (Mylanta Plus Xs) 10 ml TID PRN PRN PO HEARTBURN / GAS Last administered on 09/27/18at 22:32; Start 09/27/18 at 22:30 Cyclobenzaprine HCl (Flexeril) 5 mg TID PRN PRN PO MUSCLE SPASMS Last administered on 09/28/18at 00:37; Start 09/28/18 at 00:30 Acetaminophen/ Hydrocodone Bitart (Lortab 5/325) 1 tab PRN Q6HRS PRN PO MODERATE PAIN; Start 09/28/18 at 00:30 Acetaminophen (Tylenol) 500 mg PRN Q6HRS PRN PO HEADACHE / TEMP; Start 09/28/18 at 09:00 Acetaminophen/ Codeine Phosphate (Tylenol #3) 1 tab PRN Q6HRS PRN PO PAIN MILD; Start 09/28/18 at 09:00 Ondansetron HCl (Zofran) 4 mg PRN Q6HRS PRN IV NAUSEA/VOMITING; Start 09/28/18 at 09:00 Ondansetron HCl (Zofran Odt) 4 mg PRN Q6HRS PRN PO NAUSEA/VOMITING; Start 09/07 07/25 at 09:00 Active Scripts Active Amiodarone Hcl 200 Mg Tablet 200 Mg PO DAILY 30 Days Ondansetron Odt (Ondansetron) 4 Mg Tab.rapdis 1 Tab PO PRN Q6-8HRS Protonix (Pantoprazole Sodium) 40 Mg Tablet.dr 1 Tab PO DAILY Reported Metoprolol Succinate ( Xl ) (Metoprolol Succinate) 25 Mg Tab.er.24h 25 Mg PO DAILY Zocor (Simvastatin) 40 Mg Tablet 40 Mg PO HS Aspir 81 (Aspirin) 81 Mg Tablet.dr 81 Mg PO DAILY Allergies Allergies: Coded Allergies: No Known Drug Allergies (Unverified , 09/08/18) ROS Review of System As per history of present illness, the rest of ROS 14 point negative Physical Exam General: Alert, Oriented X3, Cooperative, No acute distress HEENT: PERRLA, EOMI Lungs: Clear to auscultation, Normal air movement Heart: S1S2, RRR, no thrills, no rubs, no gallops, no murmurs Cardiovascular: S1, S2 Abdomen: Soft, Other (lap scars from hemicolectomy surgery but no ostomy) Male Genitals Exam: normal genitalia, normal prostate Rectal Exam: not examined PELVIC: Nml ext genitalia Extremities: No clubbing, No cyanosis, No edema, Normal pulses, No tenderness/swelling Skin: No rashes, No breakdown, No significant lesion Neuro: Normal gait, Normal speech, Strength at 5/5 X4 ext, Normal tone, Sensation intact, Cranial nerves 3-12 NL, Reflexes 2+ Psych/Mental Status: Mental status NL, Mood NL Vitals Vitals Vital Signs Date Time Temp Pulse Resp B/P (MAP) Pulse Ox O2 Delivery O2 Flow Rate FiO2 09/28/18 11:07 98.0 78 18 136/78 (97) 96 Room Air 98.0 Labs Labs Laboratory Tests Test 09/27/18 14:00 09/27/18 14:40 09/27/18 16:20 09/28/18 10:40 White Blood Count 8.1 x10^3/uL (4.0-11.0) Red Blood Count 4.17 x10^6/uL (4.30-5.70) Hemoglobin 12.4 g/dL (13.0-17.5) Hematocrit 37.4 % (39.0-53.0) Mean Corpuscular Volume 90 fL (79-100) Mean Corpuscular Hemoglobin 30 pg (25-35) Mean Corpuscular Hemoglobin Concent 33 g/dL (31-37) Red Cell Distribution Width 15.0 % (11.5-14.5) Platelet Count 209 x10^3/uL (140-400) Neutrophils (%) (Auto) 81 % (31-73) Lymphocytes (%) (Auto) 10 % (24-48) Monocytes (%) (Auto) 8 % (0-9) Eosinophils (%) (Auto) 1 % (0-3) Basophils (%) (Auto) 0 % (0-3) Neutrophils # (Auto) 6.5 x10^3uL (1.8-7.7) Lymphocytes # (Auto) 0.8 x10^3/uL (1.0-4.8) Monocytes # (Auto) 0.6 x10^3/uL (0.0-1.1) Eosinophils # (Auto) 0.1 x10^3/uL (0.0-0.7) Basophils # (Auto) 0.0 x10^3/uL (0.0-0.2) Prothrombin Time 14.0 SEC (11.7-14.0) Prothromb Time International Ratio 1.1 (0.8-1.1) Sodium Level 139 mmol/L (136-145) Potassium Level 4.0 mmol/L (3.5-5.1) Chloride Level 103 mmol/L (98-107) Carbon Dioxide Level 28 mmol/L (21-32) Anion Gap 8 (6-14) Blood Urea Nitrogen 16 mg/dL (8-26) Creatinine 0.9 mg/dL (0.7-1.3) Estimated GFR (Cockcroft-Gault) 82.3 BUN/Creatinine Ratio 18 (6-20) Glucose Level 111 mg/dL (70-99) Lactic Acid Level 1.0 mmol/L (0.4-2.0) 0.7 mmol/L (0.4-2.0) Calcium Level 8.3 mg/dL (8.5-10.1) Total Bilirubin 0.6 mg/dL (0.2-1.0) Aspartate Amino Transf (AST/SGOT) 27 U/L (15-37) Alanine Aminotransferase (ALT/SGPT) 20 U/L (16-63) Alkaline Phosphatase 58 U/L (46-116) Creatine Kinase 125 U/L (39-308) Troponin I Quantitative 0.025 ng/mL (0.000-0.055) OT-Nuj-P-Type Natriuretic Peptide 1474 pg/mL (0-449) Total Protein 6.0 g/dL (6.4-8.2) Albumin 2.9 g/dL (3.4-5.0) Albumin/Globulin Ratio 0.9 (1.0-1.7) Lipase 809 U/L (73-393) Urine Collection Type Unknown Urine Color Radha Urine Clarity Clear Urine pH 5.5 Urine Specific [place] 1.025 Urine Protein Negative mg/dL (NEG-TRACE) Urine Glucose (UA) Negative mg/dL (NEG) Urine Ketones (Stick) Trace mg/dL (NEG) Urine Blood Negative (NEG) Urine Nitrite Negative (NEG) Urine Bilirubin Small (NEG) Urine Urobilinogen Dipstick 1.0 mg/dL (0.2 mg/dL) Urine Leukocyte Esterase Negative (NEG) Urine RBC 0 /HPF (0-2) Urine WBC 1-4 /HPF (0-4) Urine Amorphous Sediment Present /HPF Urine Bacteria 0 /HPF (0-FEW) Urine Hyaline Casts Moderate /HPF Urine Mucus Marked /LPF Stool Occult Blood Positive (NEG) Laboratory Tests Test 09/27/18 14:00 09/27/18 14:40 09/27/18 16:20 09/28/18 10:40 White Blood Count 8.1 x10^3/uL (4.0-11.0) Red Blood Count 4.17 x10^6/uL (4.30-5.70) Hemoglobin 12.4 g/dL (13.0-17.5) Hematocrit 37.4 % (39.0-53.0) Mean Corpuscular Volume 90 fL (79-100) Mean Corpuscular Hemoglobin 30 pg (25-35) Mean Corpuscular Hemoglobin Concent 33 g/dL (31-37) Red Cell Distribution Width 15.0 % (11.5-14.5) Platelet Count 209 x10^3/uL (140-400) Neutrophils (%) (Auto) 81 % (31-73) Lymphocytes (%) (Auto) 10 % (24-48) Monocytes (%) (Auto) 8 % (0-9) Eosinophils (%) (Auto) 1 % (0-3) Basophils (%) (Auto) 0 % (0-3) Neutrophils # (Auto) 6.5 x10^3uL (1.8-7.7) Lymphocytes # (Auto) 0.8 x10^3/uL (1.0-4.8) Monocytes # (Auto) 0.6 x10^3/uL (0.0-1.1) Eosinophils # (Auto) 0.1 x10^3/uL (0.0-0.7) Basophils # (Auto) 0.0 x10^3/uL (0.0-0.2) Prothrombin Time 14.0 SEC (11.7-14.0) Prothromb Time International Ratio 1.1 (0.8-1.1) Sodium Level 139 mmol/L (136-145) Potassium Level 4.0 mmol/L (3.5-5.1) Chloride Level 103 mmol/L (98-107) Carbon Dioxide Level 28 mmol/L (21-32) Anion Gap 8 (6-14) Blood Urea Nitrogen 16 mg/dL (8-26) Creatinine 0.9 mg/dL (0.7-1.3) Estimated GFR (Cockcroft-Gault) 82.3 BUN/Creatinine Ratio 18 (6-20) Glucose Level 111 mg/dL (70-99) Lactic Acid Level 1.0 mmol/L (0.4-2.0) 0.7 mmol/L (0.4-2.0) Calcium Level 8.3 mg/dL (8.5-10.1) Total Bilirubin 0.6 mg/dL (0.2-1.0) Aspartate Amino Transf (AST/SGOT) 27 U/L (15-37) Alanine Aminotransferase (ALT/SGPT) 20 U/L (16-63) Alkaline Phosphatase 58 U/L (46-116) Creatine Kinase 125 U/L (39-308) Troponin I Quantitative 0.025 ng/mL (0.000-0.055) SA-Xkq-N-Type Natriuretic Peptide 1474 pg/mL (0-449) Total Protein 6.0 g/dL (6.4-8.2) Albumin 2.9 g/dL (3.4-5.0) Albumin/Globulin Ratio 0.9 (1.0-1.7) Lipase 809 U/L (73-393) Urine Collection Type Unknown Urine Color Radha Urine Clarity Clear Urine pH 5.5 Urine Specific [place] 1.025 Urine Protein Negative mg/dL (NEG-TRACE) Urine Glucose (UA) Negative mg/dL (NEG) Urine Ketones (Stick) Trace mg/dL (NEG) Urine Blood Negative (NEG) Urine Nitrite Negative (NEG) Urine Bilirubin Small (NEG) Urine Urobilinogen Dipstick 1.0 mg/dL (0.2 mg/dL) Urine Leukocyte Esterase Negative (NEG) Urine RBC 0 /HPF (0-2) Urine WBC 1-4 /HPF (0-4) Urine Amorphous Sediment Present /HPF Urine Bacteria 0 /HPF (0-FEW) Urine Hyaline Casts Moderate /HPF Urine Mucus Marked /LPF Stool Occult Blood Positive (NEG) VTE Prophylaxis Ordered VTE Prophylaxis Devices: Yes VTE Pharmacological Prophylaxi: Yes Assessment/Plan Assessment/Plan Abdominal pain diarrhea, mesenteric edema, distal ileum edema on CT Status post right hemicolectomy 2018 SIRS POA with no organ dysfunction Dizziness secondary to GI loss Elevated lipase with no pancreatitis on CAT scan Hemoccult-positive Plan: Admit 2 MN Okay for diet, antibiotics, follow GI GS recs Agree to Check for C. difficile Home meds I have reconciled Dw RN and pt, agreeable to plan NEW THOMSON MD September 28, 2018 11:59
--- NOTE | 2018-09-28 14:56 | PDOC ---
Subjective: Subjective: Please see GI consult from 09/11/18 and following progress notes through 09/22. 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 Prior to surgery reported RLQ pain, n/v, and dizziness. Issues w/ PSVT and nausea last admission, h/o anxiety. EGD and colonoscopy less than 1 month ago - unrevealing except adenomatous polyps. Now reports right-sided pain ("just a pain"), feeling "sick to my stomach," and diarrhea (says every 15 minutes yesterday and about half a dozen times today). Rectal burning. No bleeding. Tolerating PO but appetite isn't great - pain gets better when he eats. Wants me to check what meds he's taking (asks about "Buffrin") and wants me to tell him exactly what's wrong with him, if it's treatable, how long it will take, and if he needs antibiotics. Reviewed w/ RN - has had two loose stools today, confirms pain gets better with eating, ?vague nausea, anxious. C Diff sent. Objective: Objective: Reviewed labs - had mildly elevated lipase, unremarkable pancreas on CT, still has GB. Had RUQ US on 08/09/18: "Limited study with obscuration of the gallbladder and pancreas by overlying bowel." Vital Signs: Vital Signs Date Time Temp Pulse Resp B/P (MAP) Pulse Ox O2 Delivery O2 Flow Rate FiO2 09/28/18 11:07 98.0 78 18 136/78 (97) 96 Room Air 98.0 Labs: Laboratory Tests Test 09/27/18 16:20 09/28/18 10:40 Stool Occult Blood Positive Lactic Acid Level 0.7 mmol/L FECAL WBC,GRAM STAIN Final WBCS FEW Imaging: CT A/P IMPRESSION: 1. Interval right colon resection. 2. Mural thickening involving the loops of distal ileum in the right mid and upper abdomen compatible with nonspecific edema. This could be on an ischemic or infectious basis. 3. Bilateral fat-containing inguinal hernias. 4. Additional miscellaneous chronic findings as described above. PE: GEN: NAD LUNGS: CTAB HEART: RRR ABD: NABS, tenderness quite laterally to right (?muscle), soft, non-distended NEURO/PSYCH: A & O 3, very anxious A/P: Right-sided pain, diarrhea S/p right hemicolectomy CRC screen - UTD (less than 1 month ago) Anxiety -- Unclear significance of CT findings but pt is concerned - will review w/ Dr. Gonzalez. Await C Diff. Add PPI. JORDON RODARTE September 28, 2018 14:56
[2018-09-28 15:10] VITALS: BP 144/61
--- NOTE | 2018-09-28 16:54 | NUR ---
SW following pt for anticipated dc needs. Chart reviewed. Pt lives at home and PT/OT recommends home with assistance. SW will arrange HH if ordered by Physician.
[2018-09-28] MEDS: HYDROcodone/APAP 5/325MG 1 TAB TABLET PO PRN (19:08)
[2018-09-28] MEDS: ONDANSETRON PF 4 MG/2 ML VIAL. IV PRN (19:09)
[2018-09-28 19:45] VITALS: BP 143/89
[2018-09-28] MEDS: SIMVASTATIN 40 MG TABLET. PO SCH (20:45)
[2018-09-28] MEDS: METOPROLOL SUCC 24HR ER 25 MG TAB.ER.24H. PO SCH (20:46)
[2018-09-28] MEDS: ACETAMINOPHEN/CODEINE 300/30MG TABLET. PO PRN (20:49)
[2018-09-28] MEDS: MAG HYDROX/ALUMINUM HYD/SIMETH 30 ML ORAL.SUSP PO PRN (22:53)
[2018-09-28 23:53] VITALS: BP 139/79
[2018-09-29] MEDS: HYDROcodone/APAP 5/325MG 1 TAB TABLET PO PRN (01:02)
[2018-09-29] MEDS: ONDANSETRON PF 4 MG/2 ML VIAL. IV PRN ×2 (01:02→06:37)
[2018-09-29] MEDS: ACETAMINOPHEN/CODEINE 300/30MG TABLET. PO PRN (02:59)
[2018-09-29 03:59] VITALS: BP 135/77
[2018-09-29] MEDS: MAG HYDROX/ALUMINUM HYD/SIMETH 30 ML ORAL.SUSP PO PRN (06:39)
[2018-09-29 07:00] VITALS: BP 147/78
[2018-09-29] MEDS ORDERED: PANTOPRAZOLE 40 MG TABLET.DR. PO SCH (07:30)
[2018-09-29] MEDS: PANTOPRAZOLE 40 MG TABLET.DR. PO SCH (08:21)
[2018-09-29] MEDS: ASPIRIN ENTERIC COATED 81 MG TABLET.DR. PO SCH (08:21)
--- NOTE | 2018-09-29 10:10 | PDOC ---
Subjective: Subjective: Pain is gone. Eating but has nausea. Now says he didn't stool yesterday (yesterday reported half a dozen stools) and hasn't yet this morning and is concerned. Wants to talk to Dr. Gonzalez. Objective: Vital Signs: Vital Signs Date Time Temp Pulse Resp B/P (MAP) Pulse Ox O2 Delivery O2 Flow Rate FiO2 09/29/18 07:00 97.9 75 18 147/78 (101) 94 Room Air 97.9 Labs: Laboratory Tests Test 09/28/18 10:40 09/29/18 04:05 Lactic Acid Level 0.7 mmol/L Erythrocyte Sedimentation Rate 8 Lipase 748 U/L C Diff neg PE: GEN: NAD LUNGS: CTAB HEART: RRR ABD: S/ND/NT - healing incision, ecchymosis lower abd NEURO/PSYCH: A & O 3, anxious A/P: Right-sided pain, diarrhea - resolved, C Diff neg Recent right hemicolectomy Nausea, anxiety Mildly elevated lipase -- Other per Dr. Gonzalez. JORDON RODARTE September 29, 2018 10:10
[2018-09-29] MEDS: AMIODARONE HCL 200 MG TABLET. PO SCH (10:13)
[2018-09-29] MEDS ORDERED: POLYETHYLENE GLYCOL 3350 17 GM PACKET. PO PRN (10:15)
[2018-09-29] MEDS ORDERED: HYDR-2761 PO (10:32)
[2018-09-29] MEDS ORDERED: LEVO500T59 PO (10:32)
[2018-09-29] MEDS ORDERED: ONDA4TAB12 PO (10:32)
--- NOTE | 2018-09-29 10:34 | PDOC3 ---
Discharge Summary Visit Information Date of Admission: September 28, 2018 Date of Discharge: September 29, 2018 Admitting Diagnosis Comment: Abdominal pain diarrhea, mesenteric edema, distal ileum edema on CT Status post right hemicolectomy 2018 SIRS POA with no organ dysfunction Dizziness secondary to GI loss Elevated lipase with no pancreatitis on CAT scan Hemoccult-positive Final Diagnosis Problems Medical Problems: (1) Dizziness Status: Acute (2) Pancreatitis Status: Acute Brief Hospital Course Allergies Allergies Coded Allergies Type Severity Reaction Last Updated Verified No Known Drug Allergies 09/08/18 No Vital Signs Vital Signs Date Time Temp Pulse Resp B/P (MAP) Pulse Ox O2 Delivery O2 Flow Rate FiO2 09/29/18 10:13 75 147/78 09/29/18 07:00 97.9 18 94 Room Air 97.9 Lab Results Laboratory Tests Test 09/27/18 14:00 09/27/18 14:40 09/27/18 15:15 09/27/18 16:20 White Blood Count 8.1 x10^3/uL (4.0-11.0) Red Blood Count 4.17 x10^6/uL (4.30-5.70) Hemoglobin 12.4 g/dL (13.0-17.5) Hematocrit 37.4 % (39.0-53.0) Mean Corpuscular Volume 90 fL (79-100) Mean Corpuscular Hemoglobin 30 pg (25-35) Mean Corpuscular Hemoglobin Concent 33 g/dL (31-37) Red Cell Distribution Width 15.0 % (11.5-14.5) Platelet Count 209 x10^3/uL (140-400) Neutrophils (%) (Auto) 81 % (31-73) Lymphocytes (%) (Auto) 10 % (24-48) Monocytes (%) (Auto) 8 % (0-9) Eosinophils (%) (Auto) 1 % (0-3) Basophils (%) (Auto) 0 % (0-3) Neutrophils # (Auto) 6.5 x10^3uL (1.8-7.7) Lymphocytes # (Auto) 0.8 x10^3/uL (1.0-4.8) Monocytes # (Auto) 0.6 x10^3/uL (0.0-1.1) Eosinophils # (Auto) 0.1 x10^3/uL (0.0-0.7) Basophils # (Auto) 0.0 x10^3/uL (0.0-0.2) Prothrombin Time 14.0 SEC (11.7-14.0) Prothromb Time International Ratio 1.1 (0.8-1.1) Sodium Level 139 mmol/L (136-145) Potassium Level 4.0 mmol/L (3.5-5.1) Chloride Level 103 mmol/L (98-107) Carbon Dioxide Level 28 mmol/L (21-32) Anion Gap 8 (6-14) Blood Urea Nitrogen 16 mg/dL (8-26) Creatinine 0.9 mg/dL (0.7-1.3) Estimated GFR (Cockcroft-Gault) 82.3 BUN/Creatinine Ratio 18 (6-20) Glucose Level 111 mg/dL (70-99) Lactic Acid Level 1.0 mmol/L (0.4-2.0) Calcium Level 8.3 mg/dL (8.5-10.1) Total Bilirubin 0.6 mg/dL (0.2-1.0) Aspartate Amino Transf (AST/SGOT) 27 U/L (15-37) Alanine Aminotransferase (ALT/SGPT) 20 U/L (16-63) Alkaline Phosphatase 58 U/L (46-116) Creatine Kinase 125 U/L (39-308) Troponin I Quantitative 0.025 ng/mL (0.000-0.055) DE-Htm-F-Type Natriuretic Peptide 1474 pg/mL (0-449) Total Protein 6.0 g/dL (6.4-8.2) Albumin 2.9 g/dL (3.4-5.0) Albumin/Globulin Ratio 0.9 (1.0-1.7) Lipase 809 U/L (73-393) Urine Collection Type Unknown Urine Color Radha Urine Clarity Clear Urine pH 5.5 Urine Specific [place] 1.025 Urine Protein Negative mg/dL (NEG-TRACE) Urine Glucose (UA) Negative mg/dL (NEG) Urine Ketones (Stick) Trace mg/dL (NEG) Urine Blood Negative (NEG) Urine Nitrite Negative (NEG) Urine Bilirubin Small (NEG) Urine Urobilinogen Dipstick 1.0 mg/dL (0.2 mg/dL) Urine Leukocyte Esterase Negative (NEG) Urine RBC 0 /HPF (0-2) Urine WBC 1-4 /HPF (0-4) Urine Amorphous Sediment Present /HPF Urine Bacteria 0 /HPF (0-FEW) Urine Hyaline Casts Moderate /HPF Urine Mucus Marked /LPF Clostridium difficile Toxin B Gene Negative (Negative) Stool Occult Blood Positive (NEG) Test 09/28/18 10:40 09/29/18 04:05 Lactic Acid Level 0.7 mmol/L (0.4-2.0) Erythrocyte Sedimentation Rate 8 (0-15) Lipase 748 U/L (73-393) Laboratory Tests Test 09/28/18 10:40 09/29/18 04:05 Lactic Acid Level 0.7 mmol/L (0.4-2.0) Erythrocyte Sedimentation Rate 8 (0-15) Lipase 748 U/L (73-393) Brief Hospital Course Mr. Hobbs is a 73 old white male who has a history of right hemicolectomy done here either July or September 2018 came in for abdominal pain but some mesenter ic inflammation seen on CT. Lipase mildly high but tolerating a diet and was okayed by GI and GS to have a diet. No more pain, some nausea which is chronic for him. Wants to go home and I am okay with that. By mouth Zofran, Levaquin, pain medicine all on chart Consults performed GS, GI Procedures performed none just CAT scan DC time less than 30 minutes Discharge Information Condition at Discharge: Improved, Stable Disposition/Orders: D/C to Home Scheduled Amiodarone Hcl (Amiodarone Hcl) 200 Mg Tablet, 200 MG PO DAILY for heart for 30 Days, #30 Prescribed by: DAQUAN TANG MD on 09/22/18 1439 Last Action: Continued on 09/27/181945 by ALEJANDRA LEGER MD Aspirin (Aspir 81) 81 Mg Tablet.dr, 81 MG PO DAILY, (Reported) Entered as Reported by: ROWAN MEZA on 03/05/14 0049 Last Action: Continued on 09/27/181945 by ALEJANDRA LEGER MD Levofloxacin (Levaquin) 500 Mg Tablet, 1 TAB PO DAILY for inflammation GI, #7 Prescribed by: NEW THOMSON on 09/29/18 1032 Metoprolol Succinate (Metoprolol Succinate ( Xl )) 25 Mg Tab.er.24h, 25 MG PO DAILY for FOR HYPERTENSION, #30 Ref 0 (Reported) Entered as Reported by: DAR JACKSON on 09/27/181813 Last Taken: Unknown Dose on Unknown Date & Time Last Action: Continued on 09/27/181945 by ALEJANDRA LEGER MD Ondansetron (Ondansetron Odt) 4 Mg Tab.rapdis, 1 TAB PO PRN Q6-8HRS for VOMITING, #16 Prescribed by: ROSA MONTELONGO D.O. on 08/09/18 0430 Last Action: Reviewed on 09/27/181813 by DAR JACKSON Pantoprazole Sodium (Protonix) 40 Mg Tablet.dr, 1 TAB PO DAILY, #30 Ref 5 Prescribed by: NEW THOMSON on 10/20/16 1222 Last Action: Continued on 09/27/181945 by ALEJANDRA LEGER MD Simvastatin (Zocor) 40 Mg Tablet, 40 MG PO HS for FOR CHOLESTEROL, #30 Ref 0 (Reported) Entered as Reported by: ROWAN MEZA on 03/05/14 0049 Last Action: Converted on 09/27/181945 by ALEJANDRA LEGER MD Scheduled PRN Hydrocodone Bit/Acetaminophen (Hydrocodone-Apap 5-325 ) 1 Tab Tablet, 1 TAB PO PRN Q6HRS PRN for MODERATE PAIN MDD 1, #20 Prescribed by: NEW THOMSON on 09/29/18 1032 Ondansetron (Ondansetron Odt) 4 Mg Tab.rapdis, 4 MG PO PRN Q6HRS PRN for NAUSEA/VOMITING MDD 1, #60 Prescribed by: NEW THOMSON on 09/29/18 1032 NEW THOMSON MD September 29, 2018 10:34
[2018-09-29 11:00] VITALS: BP 137/81
--- NOTE | 2018-09-29 11:28 | PDOC ---
SURGICAL PROGRESS NOTE Subjective no further diarrhea no abdominal pain wants to go home Vital Signs Vital Signs Date Time Temp Pulse Resp B/P (MAP) Pulse Ox O2 Delivery O2 Flow Rate FiO2 09/29/18 10:13 75 147/78 09/29/18 07:00 97.9 18 94 Room Air 97.9 I&O Intake and Output 09/29/18 06:59 Intake Total 1640 ml Output Total 600 ml Balance 1040 ml Intake Oral 1640 ml Output Urine Total 600 ml # Voids 2 # Bowel Movements 4 General: Alert, Oriented X3, Cooperative, No acute distress Abdomen: Soft, No tenderness Labs Laboratory Tests Test 09/27/18 14:00 09/27/18 14:40 09/27/18 15:15 09/27/18 16:20 White Blood Count 8.1 x10^3/uL (4.0-11.0) Red Blood Count 4.17 x10^6/uL (4.30-5.70) Hemoglobin 12.4 g/dL (13.0-17.5) Hematocrit 37.4 % (39.0-53.0) Mean Corpuscular Volume 90 fL (79-100) Mean Corpuscular Hemoglobin 30 pg (25-35) Mean Corpuscular Hemoglobin Concent 33 g/dL (31-37) Red Cell Distribution Width 15.0 % (11.5-14.5) Platelet Count 209 x10^3/uL (140-400) Neutrophils (%) (Auto) 81 % (31-73) Lymphocytes (%) (Auto) 10 % (24-48) Monocytes (%) (Auto) 8 % (0-9) Eosinophils (%) (Auto) 1 % (0-3) Basophils (%) (Auto) 0 % (0-3) Neutrophils # (Auto) 6.5 x10^3uL (1.8-7.7) Lymphocytes # (Auto) 0.8 x10^3/uL (1.0-4.8) Monocytes # (Auto) 0.6 x10^3/uL (0.0-1.1) Eosinophils # (Auto) 0.1 x10^3/uL (0.0-0.7) Basophils # (Auto) 0.0 x10^3/uL (0.0-0.2) Prothrombin Time 14.0 SEC (11.7-14.0) Prothromb Time International Ratio 1.1 (0.8-1.1) Sodium Level 139 mmol/L (136-145) Potassium Level 4.0 mmol/L (3.5-5.1) Chloride Level 103 mmol/L (98-107) Carbon Dioxide Level 28 mmol/L (21-32) Anion Gap 8 (6-14) Blood Urea Nitrogen 16 mg/dL (8-26) Creatinine 0.9 mg/dL (0.7-1.3) Estimated GFR (Cockcroft-Gault) 82.3 BUN/Creatinine Ratio 18 (6-20) Glucose Level 111 mg/dL (70-99) Lactic Acid Level 1.0 mmol/L (0.4-2.0) Calcium Level 8.3 mg/dL (8.5-10.1) Total Bilirubin 0.6 mg/dL (0.2-1.0) Aspartate Amino Transf (AST/SGOT) 27 U/L (15-37) Alanine Aminotransferase (ALT/SGPT) 20 U/L (16-63) Alkaline Phosphatase 58 U/L (46-116) Creatine Kinase 125 U/L (39-308) Troponin I Quantitative 0.025 ng/mL (0.000-0.055) TP-Jgs-A-Type Natriuretic Peptide 1474 pg/mL (0-449) Total Protein 6.0 g/dL (6.4-8.2) Albumin 2.9 g/dL (3.4-5.0) Albumin/Globulin Ratio 0.9 (1.0-1.7) Lipase 809 U/L (73-393) Urine Collection Type Unknown Urine Color Radha Urine Clarity Clear Urine pH 5.5 Urine Specific [place] 1.025 Urine Protein Negative mg/dL (NEG-TRACE) Urine Glucose (UA) Negative mg/dL (NEG) Urine Ketones (Stick) Trace mg/dL (NEG) Urine Blood Negative (NEG) Urine Nitrite Negative (NEG) Urine Bilirubin Small (NEG) Urine Urobilinogen Dipstick 1.0 mg/dL (0.2 mg/dL) Urine Leukocyte Esterase Negative (NEG) Urine RBC 0 /HPF (0-2) Urine WBC 1-4 /HPF (0-4) Urine Amorphous Sediment Present /HPF Urine Bacteria 0 /HPF (0-FEW) Urine Hyaline Casts Moderate /HPF Urine Mucus Marked /LPF Clostridium difficile Toxin B Gene Negative (Negative) Stool Occult Blood Positive (NEG) Test 09/28/18 10:40 09/29/18 04:05 Lactic Acid Level 0.7 mmol/L (0.4-2.0) Erythrocyte Sedimentation Rate 8 (0-15) Lipase 748 U/L (73-393) Laboratory Tests Test 09/29/18 04:05 Erythrocyte Sedimentation Rate 8 (0-15) Lipase 748 U/L (73-393) Problem List Problems Medical Problems: (1) Dizziness Status: Acute (2) Pancreatitis Status: Acute Assessment/Plan dc plans noted negative c diff no diarrhea today [facility] [employer] COORDINATOR September 29, 2018 11:28
--- NOTE | 2018-09-29 11:29 | NUR ---
SW following for discharge planning. Discussed with RN, pt is from home with , currently no SW needs. SW will continue to follow for discharge planning.
--- NOTE | 2018-09-29 14:09 | NUR ---
Client d/c approximately at 1308. Client was taken down by emergency room exit via wheelchair for private vehicle transportation from family member. Client VSS, A&O X 4, verbalized understanding of discharge instructions. IV was removed prior to discharge.
== END 2018-09-29 13:08 | disposition home or self-care (01) | DRG 392 ==
LOC: ER 13:30 → 6 SOUTH 15:50
PROVIDERS: ADMIT Internal Medicine; ATTEND Internal Medicine
DX: K21.9 Gastro-esophageal reflux disease without esophagitis (principal); R65.10 Systemic inflammatory response syndrome (SIRS) of non-infectious origin without acute organ dysfunction; I10 Essential (primary) hypertension; G89.29 Other chronic pain; E78.5 Hyperlipidemia, unspecified; M19.90 Unspecified osteoarthritis, unspecified site; F41.9 Anxiety disorder, unspecified; Z87.442 Personal history of urinary calculi; I25.2 Old myocardial infarction; Z95.5 Presence of coronary angioplasty implant and graft; Z90.49 Acquired absence of other specified parts of digestive tract; Z82.49 Family history of ischemic heart disease and other diseases of the circulatory system; Z79.82 Long term (current) use of aspirin
CPT/HCPCS: 36415; 73502; 74177; 80053; 81001; 82274; 82550; 83605; 83690; 83880; 84484; 85025; 85610; 85651; 87040; 87045; 87205; 87493; 93005; 96360; J2405; J7030; Q0162; Q9966; Q9967; 97535; 99285-25

== ENCOUNTER 2018-10-04 07:10 | Inpatient (IN) | payer MEDICARE ==
[~2018-10-04] VITALS: Ht 170.2 cm; Wt 71.7 kg
[~2018-10-04 07:10] MED LIST changes: +HYDR-2761 PO; +LEVO500T59 PO
[2018-10-04] MEDS ORDERED: IV NORMAL SALINE 1000ML BAG 1,000 ML IV SCH (07:44)
[2018-10-04] MEDS ORDERED: fentaNYL PF VIAL 100 MCG/2 ML VIAL IV PRN (07:45)
--- NOTE | 2018-10-04 07:51 | PHYS DOC ---
Past Medical History Past Medical History: Hypertension, Kidney Stone, AK, Other Additional Past Medical Histor: AK(12-15 YRS AGO)CHRONIC ABD PAIN Past Surgical History: Other Additional Past Surgical Histo: cardiac stents, ABDOMINAL PROCEDURE, colon resection 4-5 weeks ago Alcohol Use: None Drug Use: None Adult General Chief Complaint Chief Complaint: ABDOMINAL PAIN HPI HPI Patient is a 73-year-old male who presents to the emergency department for evaluation. He underwent a hemicolectomy several weeks ago, and was hospitalized here briefly last week. Notes from his recent hospitalization of been reviewed. The patient states that he has been having dizziness, described both as a lightheadedness, as well as a sense of rotation, nausea, as well as increasing abdominal pain over the past few days. These are similar symptoms for which she was hospitalized last week. He has not had any chest pain. He reports chronic diarrhea, even predating his recent surgery, and that has not changed. He has not had any gross blood in his stool. He was Hemoccult-positive when he was here last week, although his C. difficile test was negative. He has had nausea but no vomiting. He has not had any fevers or chills. There are no alleviating or exacerbating factors to his symptoms otherwise. Review of Systems Review of Systems Constitutional: Denies fever or chills [] Eyes: Denies change in visual acuity, redness, or eye pain [] HENT: Denies nasal congestion or sore throat [] Respiratory: Denies cough or shortness of breath [] Cardiovascular:The patient denies any shortness of breath, chest pain, palpitations, or orthopnea [] GI: No additional information not addressed in HPI [] : Denies dysuria or hematuria [] Musculoskeletal: Denies back pain or joint pain [] Integument: Denies rash or skin lesions [] Neurologic: Denies headache, focal weakness or sensory changes. Reports generalized weakness and dizziness. [] Endocrine: Denies polyuria or polydipsia [] All other systems were reviewed and found to be within normal limits, except as documented in this note. Current Medications Current Medications Current Medications Medications (Trade) Dose Ordered Sig/Kaylie Start Time Stop Time Status Last Admin Dose Admin Fentanyl Citrate (Fentanyl 2ml Vial) 50 mcg PRN Q15MIN PRN 10/04/18 07:45 10/05/18 07:44 10/04/18 08:11 50 MCG Info (CONTRAST GIVEN -- Rx MONITORING) 1 each PRN DAILY PRN 10/04/18 08:45 10/06/18 08:44 Iohexol (Omnipaque 240 Mg/ml) 30 ml 1X ONCE 10/04/18 08:45 10/04/18 08:46 DC 10/04/18 08:45 30 ML Iohexol (Omnipaque 300 Mg/ml) 75 ml 1X ONCE 10/04/18 08:45 10/04/18 08:46 DC 10/04/18 08:45 75 ML Sodium Chloride 1,000 ml @ 1,000 mls/hr Q1H 10/04/18 07:44 10/04/18 08:43 DC 10/04/18 08:11 1,000 MLS/HR Allergies Allergies Allergies Coded Allergies Type Severity Reaction Last Updated Verified No Known Drug Allergies 09/08/18 No Physical Exam Physical Exam PHYSICAL EXAM: CONSTITUTIONAL: Well developed, well nourished HEAD: normocephalic, atraumatic EENT: PERRL, EOMI. Conjunctivae normal color, sclerae non-icteric; moist mucous membranes. NECK: Supple, non-tender; no meningismus. LUNGS: Lungs CTA, breathing even and unlabored. Normal air movement. HEART: Regular rate and rhythm, no murmur CHEST: No deformity; non-tender ABDOMEN: The abdomen is soft, there is diffuse tenderness to palpation of the abdomen, worse in the right abdomen diffusely, with rebound tenderness, but no guarding. Hyperactive bowel sounds are present. no masses or bruits. EXTREM: Normal ROM; no deformity, no calf tenderness. Normal pulses palpable in all extremities. There is no pedal edema. SKIN: No rash; no diaphoresis NEURO: Alert; normal speech and cognition; CN's grossly intact; strength grossly intact without focal deficit. BACK: No CVA TTP. Current Patient Data Vital Signs Vital Signs Date Time Temp Pulse Resp B/P (MAP) Pulse Ox O2 Delivery O2 Flow Rate FiO2 10/04/18 08:41 98 Room Air 10/04/18 07:26 97.9 87 18 104/53 (70) 97.9 Lab Values Laboratory Tests Test 10/04/18 07:29 White Blood Count 8.1 x10^3/uL (4.0-11.0) Red Blood Count 4.26 x10^6/uL (4.30-5.70) L Hemoglobin 12.7 g/dL (13.0-17.5) L Hematocrit 37.6 % (39.0-53.0) L Mean Corpuscular Volume 88 fL (79-100) Mean Corpuscular Hemoglobin 30 pg (25-35) Mean Corpuscular Hemoglobin Concent 34 g/dL (31-37) Red Cell Distribution Width 14.3 % (11.5-14.5) Platelet Count 174 x10^3/uL (140-400) Neutrophils (%) (Auto) 73 % (31-73) Lymphocytes (%) (Auto) 17 % (24-48) L Monocytes (%) (Auto) 10 % (0-9) H Eosinophils (%) (Auto) 1 % (0-3) Basophils (%) (Auto) 0 % (0-3) Neutrophils # (Auto) 5.9 x10^3uL (1.8-7.7) Lymphocytes # (Auto) 1.3 x10^3/uL (1.0-4.8) Monocytes # (Auto) 0.8 x10^3/uL (0.0-1.1) Eosinophils # (Auto) 0.0 x10^3/uL (0.0-0.7) Basophils # (Auto) 0.0 x10^3/uL (0.0-0.2) Prothrombin Time 13.1 SEC (11.7-14.0) Prothrombin Time INR 1.0 (0.8-1.1) Sodium Level 140 mmol/L (136-145) Potassium Level 3.7 mmol/L (3.5-5.1) Chloride Level 103 mmol/L (98-107) Carbon Dioxide Level 28 mmol/L (21-32) Anion Gap 9 (6-14) Blood Urea Nitrogen 17 mg/dL (8-26) Creatinine 1.1 mg/dL (0.7-1.3) Estimated GFR (Cockcroft-Gault) 65.3 BUN/Creatinine Ratio 15 (6-20) Glucose Level 126 mg/dL (70-99) H Lactic Acid Level 1.3 mmol/L (0.4-2.0) Calcium Level 8.8 mg/dL (8.5-10.1) Magnesium Level 1.8 mg/dL (1.8-2.4) Total Bilirubin 0.5 mg/dL (0.2-1.0) Aspartate Amino Transferase (AST) 20 U/L (15-37) Alanine Aminotransferase (ALT) 16 U/L (16-63) Alkaline Phosphatase 61 U/L (46-116) Troponin I Quantitative 0.024 ng/mL (0.000-0.055) TV-Zfr-[id number]-Type Natriuretic Peptide 2319 pg/mL (0-449) H Total Protein 5.7 g/dL (6.4-8.2) L Albumin 3.2 g/dL (3.4-5.0) L Albumin/Globulin Ratio 1.3 (1.0-1.7) Lipase 438 U/L (73-393) H Thyroid Stimulating Hormone (TSH) 2.451 uIU/mL (0.358-3.74) Laboratory Tests 10/04/18 07:29 Laboratory Tests 10/04/18 07:29 EKG EKG Normal sinus rhythm at a rate of 84 beats for minute, left axis deviation, left anterior fascicular block, there are no acute ischemic ST/T changes.[] Radiology/Procedures Radiology/Procedures [PROCEDURE: CT ABD PELV W/ORAL&IV CONTRAST CT ABD PELV W/ORAL IV CONTRAST Indication: Abdominal pain. Recent colon resection. Chronic diarrhea. Exposure: One or more of the following individualized dose reduction techniques were utilized for this examination: 1. Automated exposure control 2. Adjustment of the mA and/or kV according to patient size 3. Use of iterative reconstruction technique. Technique: Intravenous contrast was given. No oral contrast per request. Comparison with September 27, 2018. Coronary artery calcifications. Mild atelectasis/fibrosis in the lung bases. Heart size mildly enlarged. Liver morphology is similar. There are 2 hypodense lesions in the right lobe again identified one measures less than 1 cm. The other measures 2 cm and cystic density. Spleen not enlarged. Pancreas unremarkable. No adrenal mass. Kidneys demonstrate symmetric enhancement. There are multiple renal lesions again identified, particularly on the left. These demonstrate similar size as prior study. Largest on the left measures 4 cm and may represent one lesion or 2 adjacent lesions. This lesion measures 33 Hounsfield units, greater than a simple cyst. Another lesion posterior to this measures 28 Hounsfield units also greater than a simple cyst. A third lesion measures 24 Hounsfield units. Tiny nonobstructive renal calculi are identified on the left. No hydronephrosis is seen. No calcified gallstone. There may be mild gallbladder wall thickening, but this is unchanged. Aorta is mildly calcified, no gross aneurysm. No significant lymph node enlargement. Gastric wall thickening particularly at the proximal stomach and at the antrum. Mild stool identified in the colon. Mild colonic diverticula are seen. Prior bowel surgery with anastomotic sutures is again identified. Previously seen wall thickening of ileum loops appears similar to slightly improved, although note that the prior study was performed with oral contrast, and today's study is without oral contrast. There is mild stranding within the mesenteric fat, particularly on the right, a finding which is similar to the prior study. No significant urinary bladder wall thickening. Prostate gland is mildly enlarged. Fat-containing inguinal hernias are again noted bilaterally. No significant ascites or evidence of pneumoperitoneum. Severe degenerative spondylosis. There are degenerative changes at the skeletal pelvis. There is stranding within the subcutaneous fat of the anterior abdomen, greater to the right of midline similar to the prior study. Likely due to prior surgery. IMPRESSION: 1. Previously seen wall thickening of small bowel loops appears similar to slightly improved, although today's study may be less accurate due to the lack of oral contrast. No definite progression, however. 2. Multiple left renal lesions are identified. The 3 largest lesions measure slightly greater than fluid density. These could represent complex or hemorrhagic cysts but other etiology not excludable. Nonemergent renal ultrasound could further evaluate. 3. Mild gastric wall thickening. This could be due to incomplete distention, versus other etiology such as gastritis. 4. Other findings appear stable since previous exam.] Course & Med Decision Making Course & Med Decision Making Pertinent Labs and Imaging studies reviewed. (See chart for details) []10:25 AM:The patient's condition remains stable. However, he feels too weak to go home. I spoke with the hospitalist, who accepted the patient to the hospital for further evaluation and treatment. Dragon Disclaimer Dragon Disclaimer This electronic medical record was generated, in whole or in part, using a voice recognition dictation system. Departure Departure Impression: Primary Impression: Abdominal pain Additional Impressions: Dizziness Diarrhea Disposition: ADMITTED INPATIENT Condition: STABLE Referrals: JENNI BOURNE MD (PCP) Problem Qualifiers SHANT GAONA MD October 04, 2018 07:51
[2018-10-04 07:59] LABS: BASO % 0 % (0-3); EOS % 1 % (0-3); HEMATOCRIT 37.6 % (39.0-53.0); HEMOGLOBIN 12.7 g/dL (13.0-17.5); LYMPH # 1.3 x10^3/uL (1.0-4.8); LYMPH % 17 % (24-48); MEAN CORPUSCULAR HEMOGLOBIN 30 pg (25-35); MEAN CORPUSCULAR HGB CONC 34 g/dL (31-37); MEAN CORPUSCULAR VOLUME 88 fL (79-100); MONO # 0.8 x10^3/uL (0.0-1.1); MONO % 10 % (0-9); NEUT # 5.9 x10^3uL (1.8-7.7); NEUT % 73 % (31-73); PLATELET COUNT 174 x10^3/uL (140-400); RED BLOOD COUNT 4.26 x10^6/uL (4.30-5.70); RED CELL DISTRIBUTION WIDTH 14.3 % (11.5-14.5); WHITE BLOOD COUNT 8.1 x10^3/uL (4.0-11.0)
[2018-10-04 08:06] LABS: PROTHROMBIN TIME PATIENT 13.1 SEC (11.7-14.0)
[2018-10-04 08:17] LABS: CALCIUM 8.8 mg/dL (8.5-10.1); CREATININE 1.1 mg/dL (0.7-1.3); GFR 65.3; POTASSIUM 3.7 mmol/L (3.5-5.1)
[2018-10-04 08:22] LABS: ALBUMIN 3.2 g/dL (3.4-5.0); ALBUMIN/GLOBULIN RATIO 1.3 (1.0-1.7); MAGNESIUM 1.8 mg/dL (1.8-2.4); TOTAL BILIRUBIN 0.5 mg/dL (0.2-1.0); TOTAL PROTEIN 5.7 g/dL (6.4-8.2)
[2018-10-04] MEDS ORDERED: IOHEXOL 240 MG/ML 50ML VIAL. PO ONE (08:45)
[2018-10-04] MEDS ORDERED: CONTRAST GIVEN. MC PRN (08:45)
[2018-10-04] MEDS ORDERED: IOHEXOL 300 MG/ML 100ML VIAL. IV ONE (08:45)
--- NOTE | 2018-10-04 09:48 | RAD ---
CT ABD PELV W/ORAL IV CONTRAST Indication: Abdominal pain. Recent colon resection. Chronic diarrhea. Exposure: One or more of the following individualized dose reduction techniques were utilized for this examination: 1. Automated exposure control 2. Adjustment of the mA and/or kV according to patient size 3. Use of iterative reconstruction technique. Technique: Intravenous contrast was given. No oral contrast per request. Comparison with September 27, 2018. Coronary artery calcifications. Mild atelectasis/fibrosis in the lung bases. Heart size mildly enlarged. Liver morphology is similar. There are 2 hypodense lesions in the right lobe again identified one measures less than 1 cm. The other measures 2 cm and cystic density. Spleen not enlarged. Pancreas unremarkable. No adrenal mass. Kidneys demonstrate symmetric enhancement. There are multiple renal lesions again identified, particularly on the left. These demonstrate similar size as prior study. Largest on the left measures 4 cm and may represent one lesion or 2 adjacent lesions. This lesion measures 33 Hounsfield units, greater than a simple cyst. Another lesion posterior to this measures 28 Hounsfield units also greater than a simple cyst. A third lesion measures 24 Hounsfield units. Tiny nonobstructive renal calculi are identified on the left. No hydronephrosis is seen. No calcified gallstone. There may be mild gallbladder wall thickening, but this is unchanged. Aorta is mildly calcified, no gross aneurysm. No significant lymph node enlargement. Gastric wall thickening particularly at the proximal stomach and at the antrum. Mild stool identified in the colon. Mild colonic diverticula are seen. Prior bowel surgery with anastomotic sutures is again identified. Previously seen wall thickening of ileum loops appears similar to slightly improved, although note that the prior study was performed with oral contrast, and today's study is without oral contrast. There is mild stranding within the mesenteric fat, particularly on the right, a finding which is similar to the prior study. No significant urinary bladder wall thickening. Prostate gland is mildly enlarged. Fat-containing inguinal hernias are again noted bilaterally. No significant ascites or evidence of pneumoperitoneum. Severe degenerative spondylosis. There are degenerative changes at the skeletal pelvis. There is stranding within the subcutaneous fat of the anterior abdomen, greater to the right of midline similar to the prior study. Likely due to prior surgery. IMPRESSION: 1. Previously seen wall thickening of small bowel loops appears similar to slightly improved, although today's study may be less accurate due to the lack of oral contrast. No definite progression, however. 2. Multiple left renal lesions are identified. The 3 largest lesions measure slightly greater than fluid density. These could represent complex or hemorrhagic cysts but other etiology not excludable. Nonemergent renal ultrasound could further evaluate. 3. Mild gastric wall thickening. This could be due to incomplete distention, versus other etiology such as gastritis. 4. Other findings appear stable since previous exam. Electronically signed by: Hemant Wright MD (10/04/2018 9:45 AM) [facility]
[2018-10-04] MEDS ORDERED: IV NORMAL SALINE 1000ML BAG 1,000 ML IV ONE (10:30)
[2018-10-04 10:31] LABS: BILIRUBIN,URINE NEGATIVE (NEG); CLARITY,URINE CLEAR; COLOR,URINE YELLOW; NITRITE,URINE NEGATIVE (NEG); PH,URINE 5.5; PROTEIN,URINE NEGATIVE (NEG-TRACE); UROBILINOGEN,URINE 0.2 mg/dL (0.2 mg/dL)
[2018-10-04 10:40] LABS: BACTERIA,URINE 0 /HPF (0-FEW); RBC,URINE 0 /HPF (0-2); SQUAMOUS EPITHELIAL CELL,UR FEW /LPF; WBC,URINE 0 /HPF (0-4)
--- NOTE | 2018-10-04 11:58 | PDOC1 ---
History and Physical Date of Admission Date of Admission DATE: 10/04/18 TIME: 11:54 Identification/Chief Complaint Chief Complaint Abdominal pain History of Present Illness History of Present Illness Mr Hobbs is a 73yo M w/ PMHx HTN, [place], Hyperlipidemia, GERD, chronic low back pain, Osteoarthritis with intermittent episodes of epigastric pain that he described as pressure-like sensation, 7/10 severity associated with diaphoresis and nausea as well as dizziness and low back pain. He denied any orthopnea/PND, palpitations or syncope. He has been very dizzy and having low back pain as well, and ear fullness, thinks he has an ear infection. He underwent a hemicolectomy several weeks ago, and was hospitalized here briefly last week. He was just seen in this ED multiple times this year. He was worked up for possible kidney stones and appendicitis. While he was waiting for a taxi, his lightheadedness and dizziness has gotten worse. He decided he needed to be re- evaluated and does not feel like he is safe at home. Currently, his dizziness and lightheadedness is worse. He is nauseous but has not vomited. He still has right flank pain radiating to his RLQ. He states he has chronic back pain but this new pain is different. Located more laterally and has been worse for about a week. Pt states he is weak. Denies CP, fever, chills Past Medical History Cardiovascular: HTN, [place], Hyperlipidemia Pulmonary: No pertinent hx CENTRAL NERVOUS SYSTEM: Other GI: GERD Heme/Onc: No pertinent hx Hepatobiliary: No pertinent hx Psych: No pertinent hx Musculoskeletal: low back pain, Osteoarthritis Infectious disease: No pertinent hx Renal/: Other Endocrine: No pertinent hx Past Surgical History Past Surgical History: Tonsillectomy, Colon Resection, Other Family History Family History: Coronary Artery Disease, Hypertension Social History ALCOHOL: none Drugs: None Current Problem List Problem List Problems Medical Problems: (1) Diarrhea Status: Acute (2) Dizziness Status: Acute Current Medications Current Medications Current Medications Fentanyl Citrate (Fentanyl 2ml Vial) 50 mcg PRN Q15MIN PRN IV PAIN GREATER THAN 3/10 Last administered on 10/04/18at 08:11; Start 10/04/18 at 07:45; Stop 10/05/18 at 07:44 Sodium Chloride 1,000 ml @ 1,000 mls/hr Q1H IV Last administered on 10/04/18at 08:11; Start 10/04/18 at 07:44; Stop 10/04/18 at 08:43; Status DC Iohexol (Omnipaque 240 Mg/ml) 30 ml 1X ONCE PO Last administered on 10/04/18at 08:45; Start 10/04/18 at 08:45; Stop 10/04/18 at 08:46; Status DC Iohexol (Omnipaque 300 Mg/ml) 75 ml 1X ONCE IV Last administered on 10/04/18at 08:45; Start 10/04/18 at 08:45; Stop 10/04/18 at 08:46; Status DC Info (CONTRAST GIVEN -- Rx MONITORING) 1 each PRN DAILY PRN MC SEE COMMENTS; Start 10/04/18 at 08:45; Stop 10/06/18 at 08:44 Sodium Chloride 1,000 ml @ 125 mls/hr 1X ONCE IV ; Start 10/04/18 at 10:30; Stop 10/04/18 at 18:29 Active Scripts Active Levaquin (Levofloxacin) 500 Mg Tablet 1 Tab PO DAILY Ondansetron Odt (Ondansetron) 4 Mg Tab.rapdis 4 Mg PO PRN Q6HRS PRN MDD 1 Hydrocodone-Apap 5-325 (Hydrocodone Bit/Acetaminophen) 1 Tab Tablet 1 Tab PO PRN Q6HRS PRN MDD 1 Amiodarone Hcl 200 Mg Tablet 200 Mg PO DAILY 30 Days Ondansetron Odt (Ondansetron) 4 Mg Tab.rapdis 1 Tab PO PRN Q6-8HRS Protonix (Pantoprazole Sodium) 40 Mg Tablet. 1 Tab PO DAILY Reported Metoprolol Succinate ( Xl ) (Metoprolol Succinate) 25 Mg Tab.er.24h 25 Mg PO DAILY Zocor (Simvastatin) 40 Mg Tablet 40 Mg PO HS Aspir 81 (Aspirin) 81 Mg Tablet.dr 81 Mg PO DAILY Allergies Allergies: Coded Allergies: No Known Drug Allergies (Unverified , 09/08/18) ROS General: YES: Fatigue, Malaise; No: Chills, Night Sweats, Appetite, Other PSYCHOLOGICAL ROS: YES: Anxiety; No: Behavioral Disorder, Concentration difficultie, Decreased libido, Depression, Disorientation, Hallucinations, Hostility, Irritablity, Memory difficulties, Mood Swings, Obsessive thoughts, Physical abuse, Sexual abuse, Sleep disturbances, Suicidal ideation, Other Eyes: No Blurry vision, No Decreased vision, No Double vision, No Dry eyes, No Excessive tearing, No Eye Pain, No Itchy Eyes, No Loss of vision, No Photophobia, No Scotomata, No Uses contacts, No Uses glasses, No Other HEENT: YES: Hearing change; No: Heacaches, Visual Changes, Nasal congestion, Nasal discharge, Oral lesions, Sinus pain, Sore Throat, Epistaxis, Sneezing, Snoring, Tinnitus, Vertigo, Vocal changes, Other ALLERGY AND IMMUNOLOGY: No: Hives, Insect Bite Sensitivity, Itchy/Watery Eyes, Nasal Congestion, Post Nasal Drip, Seasonal Allergies, Other Hematological and Lymphatic: No: Bleeding Problems, Blood Clots, Blood Transfus ions, Brusing, Night Sweats, Pallor, Swollen Lymph Nodes, Other ENDOCRINE: No: Breast Changes, Galactorrhea, Hair Pattern Changes, Hot Flashes, Malaise/lethargy, Mood Swings, Palpitations, Polydipsia/polyuria, Skin Changes, Temperature Intolerance, Unexpected Weight Changes, Other Breast: No New/Changing Breast Lumps, No Nipple changes, No Nipple discharge, No Other Respiratory: No: Cough, Hemoptysis, Orthopnea, Pleuritic Pain, Shortness of b reath, SOB with excertion, Sputum Changes, Stridor, Tachypnea, Wheezing, Other Cardiovascular: No Chest Pain, No Palpitations, No Orthopnea, No Paroxysmal Noc. Dyspnea, No Edema, No Lt Headedness, No Other Gastrointestinal: Yes Nausea, Yes Abdominal Pain, Yes Diarrhea; No Vomiting, No Constipation, No Melena, No Hematochezia, No Other Genitourinary: No Dysuria, No Frequency, No Incontinence, No Hematuria, No Retention, No Discharge, No Urgency, No Pain, No Flank Pain, No Other, No , No , No , No , No , No , No Musculoskeletal: No Gait Disturbance, No Joint Pain, No Joint Stiffness, No Joint Swelling, No Muscle Pain, No Muscular Weakness, No Pain In:, No Swelling In:, No Other Neurological: No Behavorial Changes, No Bowel/Bladder ControlChng, No Confusion, No Dizziness, No Gait Disturbance, No Headaches, No Impaired Coord/balance, No Memory Loss, No Numbness/Tingling, No Seizures, No Speech Problems, No Tremors, No Visual Changes, No Weakness, No Other Skin: No Dry Skin, No Eczema, No Hair Changes, No Lumps, No Mole Changes, No Mottling, No Nail Changes, No Pruritus, No Rash, No Skin Lesion Changes, No Other, No Acne Physical Exam General: Alert, Oriented X3, Cooperative, No acute distress HEENT: Atraumatic, PERRLA, EOMI, Mucous membr. moist/pink, Other (Left ear with impacted cerumen) Lungs: Clear to auscultation, Normal air movement Heart: S1S2, RRR, no gallops, no murmurs Abdomen: Normal bowel sounds, Soft, No hepatosplenomegaly, No masses, Other (RLQ tender) Extremities: No clubbing, No cyanosis, No edema, Normal pulses, No tenderness/swelling Skin: No rashes, No breakdown, No significant lesion Neuro: Normal gait, Normal speech, Strength at 5/5 X4 ext, Normal tone, Sensation intact, Cranial nerves 3-12 NL, Reflexes 2+ Psych/Mental Status: Mental status NL, Mood NL Vitals Vitals Vital Signs Date Time Temp Pulse Resp B/P (MAP) Pulse Ox O2 Delivery O2 Flow Rate FiO2 10/04/18 10:30 97.9 18 18 118/63 (81) 98 97.9 10/04/18 09:00 Room Air Labs Labs Laboratory Tests Test 10/04/18 07:29 10/04/18 10:21 White Blood Count 8.1 x10^3/uL (4.0-11.0) Red Blood Count 4.26 x10^6/uL (4.30-5.70) Hemoglobin 12.7 g/dL (13.0-17.5) Hematocrit 37.6 % (39.0-53.0) Mean Corpuscular Volume 88 fL (79-100) Mean Corpuscular Hemoglobin 30 pg (25-35) Mean Corpuscular Hemoglobin Concent 34 g/dL (31-37) Red Cell Distribution Width 14.3 % (11.5-14.5) Platelet Count 174 x10^3/uL (140-400) Neutrophils (%) (Auto) 73 % (31-73) Lymphocytes (%) (Auto) 17 % (24-48) Monocytes (%) (Auto) 10 % (0-9) Eosinophils (%) (Auto) 1 % (0-3) Basophils (%) (Auto) 0 % (0-3) Neutrophils # (Auto) 5.9 x10^3uL (1.8-7.7) Lymphocytes # (Auto) 1.3 x10^3/uL (1.0-4.8) Monocytes # (Auto) 0.8 x10^3/uL (0.0-1.1) Eosinophils # (Auto) 0.0 x10^3/uL (0.0-0.7) Basophils # (Auto) 0.0 x10^3/uL (0.0-0.2) Prothrombin Time 13.1 SEC (11.7-14.0) Prothromb Time International Ratio 1.0 (0.8-1.1) Sodium Level 140 mmol/L (136-145) Potassium Level 3.7 mmol/L (3.5-5.1) Chloride Level 103 mmol/L (98-107) Carbon Dioxide Level 28 mmol/L (21-32) Anion Gap 9 (6-14) Blood Urea Nitrogen 17 mg/dL (8-26) Creatinine 1.1 mg/dL (0.7-1.3) Estimated GFR (Cockcroft-Gault) 65.3 BUN/Creatinine Ratio 15 (6-20) Glucose Level 126 mg/dL (70-99) Lactic Acid Level 1.3 mmol/L (0.4-2.0) Calcium Level 8.8 mg/dL (8.5-10.1) Magnesium Level 1.8 mg/dL (1.8-2.4) Total Bilirubin 0.5 mg/dL (0.2-1.0) Aspartate Amino Transf (AST/SGOT) 20 U/L (15-37) Alanine Aminotransferase (ALT/SGPT) 16 U/L (16-63) Alkaline Phosphatase 61 U/L (46-116) Troponin I Quantitative 0.024 ng/mL (0.000-0.055) LY-Lry-A-Type Natriuretic Peptide 2319 pg/mL (0-449) Total Protein 5.7 g/dL (6.4-8.2) Albumin 3.2 g/dL (3.4-5.0) Albumin/Globulin Ratio 1.3 (1.0-1.7) Lipase 438 U/L (73-393) Thyroid Stimulating Hormone (TSH) 2.451 uIU/mL (0.358-3.74) Urine Collection Type Unknown Urine Color Yellow Urine Clarity Clear Urine pH 5.5 Urine Specific [place] 1.025 Urine Protein Negative mg/dL (NEG-TRACE) Urine Glucose (UA) Negative mg/dL (NEG) Urine Ketones (Stick) Negative mg/dL (NEG) Urine Blood Negative (NEG) Urine Nitrite Negative (NEG) Urine Bilirubin Negative (NEG) Urine Urobilinogen Dipstick 0.2 mg/dL (0.2 mg/dL) Urine Leukocyte Esterase Negative (NEG) Urine RBC 0 /HPF (0-2) Urine WBC 0 /HPF (0-4) Urine Squamous Epithelial Cells Few /LPF Urine Bacteria 0 /HPF (0-FEW) Urine Mucus Marked /LPF Laboratory Tests Test 10/04/18 07:29 10/04/18 10:21 White Blood Count 8.1 x10^3/uL (4.0-11.0) Red Blood Count 4.26 x10^6/uL (4.30-5.70) Hemoglobin 12.7 g/dL (13.0-17.5) Hematocrit 37.6 % (39.0-53.0) Mean Corpuscular Volume 88 fL (79-100) Mean Corpuscular Hemoglobin 30 pg (25-35) Mean Corpuscular Hemoglobin Concent 34 g/dL (31-37) Red Cell Distribution Width 14.3 % (11.5-14.5) Platelet Count 174 x10^3/uL (140-400) Neutrophils (%) (Auto) 73 % (31-73) Lymphocytes (%) (Auto) 17 % (24-48) Monocytes (%) (Auto) 10 % (0-9) Eosinophils (%) (Auto) 1 % (0-3) Basophils (%) (Auto) 0 % (0-3) Neutrophils # (Auto) 5.9 x10^3uL (1.8-7.7) Lymphocytes # (Auto) 1.3 x10^3/uL (1.0-4.8) Monocytes # (Auto) 0.8 x10^3/uL (0.0-1.1) Eosinophils # (Auto) 0.0 x10^3/uL (0.0-0.7) Basophils # (Auto) 0.0 x10^3/uL (0.0-0.2) Prothrombin Time 13.1 SEC (11.7-14.0) Prothromb Time International Ratio 1.0 (0.8-1.1) Sodium Level 140 mmol/L (136-145) Potassium Level 3.7 mmol/L (3.5-5.1) Chloride Level 103 mmol/L (98-107) Carbon Dioxide Level 28 mmol/L (21-32) Anion Gap 9 (6-14) Blood Urea Nitrogen 17 mg/dL (8-26) Creatinine 1.1 mg/dL (0.7-1.3) Estimated GFR (Cockcroft-Gault) 65.3 BUN/Creatinine Ratio 15 (6-20) Glucose Level 126 mg/dL (70-99) Lactic Acid Level 1.3 mmol/L (0.4-2.0) Calcium Level 8.8 mg/dL (8.5-10.1) Magnesium Level 1.8 mg/dL (1.8-2.4) Total Bilirubin 0.5 mg/dL (0.2-1.0) Aspartate Amino Transf (AST/SGOT) 20 U/L (15-37) Alanine Aminotransferase (ALT/SGPT) 16 U/L (16-63) Alkaline Phosphatase 61 U/L (46-116) Troponin I Quantitative 0.024 ng/mL (0.000-0.055) FP-Spm-R-Type Natriuretic Peptide 2319 pg/mL (0-449) Total Protein 5.7 g/dL (6.4-8.2) Albumin 3.2 g/dL (3.4-5.0) Albumin/Globulin Ratio 1.3 (1.0-1.7) Lipase 438 U/L (73-393) Thyroid Stimulating Hormone (TSH) 2.451 uIU/mL (0.358-3.74) Urine Collection Type Unknown Urine Color Yellow Urine Clarity Clear Urine pH 5.5 Urine Specific [place] 1.025 Urine Protein Negative mg/dL (NEG-TRACE) Urine Glucose (UA) Negative mg/dL (NEG) Urine Ketones (Stick) Negative mg/dL (NEG) Urine Blood Negative (NEG) Urine Nitrite Negative (NEG) Urine Bilirubin Negative (NEG) Urine Urobilinogen Dipstick 0.2 mg/dL (0.2 mg/dL) Urine Leukocyte Esterase Negative (NEG) Urine RBC 0 /HPF (0-2) Urine WBC 0 /HPF (0-4) Urine Squamous Epithelial Cells Few /LPF Urine Bacteria 0 /HPF (0-FEW) Urine Mucus Marked /LPF Images Images CT abdomen - 1. Previously seen wall thickening of small bowel loops appears similar to slightly improved, although today's study may be less accurate due to the lack of oral contrast. No definite progression, however. 2. Multiple left renal lesions are identified. The 3 largest lesions measure slightly greater than fluid density. These could represent complex or hemo rrhagic cysts but other etiology not excludable. Nonemergent renal ultrasound could further evaluate. 3. Mild gastric wall thickening. This could be due to incomplete distention, versus other etiology such as gastritis. 4. Other findings appear stable since previous exam. VTE Prophylaxis Ordered VTE Prophylaxis Devices: No VTE Pharmacological Prophylaxi: Yes Assessment/Plan Assessment/Plan A/P: RLQ pain - CT abdomen looks improved from prior. Consult GI. Abdominal US for left renal cysts Diarrhea - will check stool studies Impacted cerumen - will clean left ear. Dizziness - will cont meclizine, will reattempt BPPV maneuvers, clean out left ear Arrhythmia - No associated exertional CP/HOGUE/palpitations, will f/u outpatient with cardiology as he is on a BB CAD - with prior stents HTN - cont meds, hold BB for bradycardia HLD - cont statin Lumbago with recent heavy lifting: hx of lumbar decompression - will cont muscle relaxants, pain meds FEN - Cardiac diet PPX - SCDs FULL CODE Inpatient for symptomatic abdominal pain with dizziness, likely inpatient 2 midnights. DINAH CRAFT MD October 04, 2018 11:58
--- NOTE | 2018-10-04 13:12 | PDOC ---
Subjective: Subjective: Please see GI consult from 09/11/18 and following progress notes through 09/22, then progress notes from 09/28 and 09/29. H/o right-sided abd pain, n/v, and dizziness. EGD and colonoscopy less than 1 month ago - unrevealing except adenomatous colon polyps. 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 Had some issues w/ PSVT during first admission this month, saw cardiology. Last week had a right-sided pain, felt "sick to stomach," and reported significant diarrhea... but the next day was very concerned when he didn't have a stool until the afternoon. C Diff was negative, right-sided pain resolved, and he was much calmer after stooling on 09/29. At that time had mildly elevated lipase, unremarkable pancreas on CT. Previous US (on 08/09/18): "limited study with obscuration of the gallbladder and pancreas by overlying bowel." Had discussed checking a.m. Cortisol and GB imaging but was discharged after quick resolution of symptoms. Back to ER again and admitted. Currently in his room eating chicken. Tells me awoke last night with "upset stomach" and feeling dizzy. He also had a loose stool at some point - not diarrhea - says "half and half" which is normal for him. He did have a pain in his right side that has improved. History is challenging - this is the first time he has eaten today but I believe was eating, drinking, and stooling normally after recent discharge. Has a hard time describing dizziness - does not feel the room is spinning or have the sensation of being in motion but "I can just feel my head being dizzy." He now says this has been a problem for a long time and he has a history of "an ear infection" because his ears pop when he moves his jaw. He would like to talk to a doctor about his ears, he wants to see the heart doctor, and he has questions about the medications he takes in the mornings. Objective: Vital Signs: Vital Signs Date Time Temp Pulse Resp B/P (MAP) Pulse Ox O2 Delivery O2 Flow Rate FiO2 10/04/18 10:30 97.9 18 18 118/63 (81) 98 97.9 10/04/18 09:00 Room Air Labs: Laboratory Tests Test 10/04/18 07:29 10/04/18 10:21 White Blood Count 8.1 x10^3/uL Red Blood Count 4.26 x10^6/uL Hemoglobin 12.7 g/dL Hematocrit 37.6 % Mean Corpuscular Volume 88 fL Mean Corpuscular Hemoglobin 30 pg Mean Corpuscular Hemoglobin Concent 34 g/dL Red Cell Distribution Width 14.3 % Platelet Count 174 x10^3/uL Neutrophils (%) (Auto) 73 % Lymphocytes (%) (Auto) 17 % Monocytes (%) (Auto) 10 % Eosinophils (%) (Auto) 1 % Basophils (%) (Auto) 0 % Neutrophils # (Auto) 5.9 x10^3uL Lymphocytes # (Auto) 1.3 x10^3/uL Monocytes # (Auto) 0.8 x10^3/uL Eosinophils # (Auto) 0.0 x10^3/uL Basophils # (Auto) 0.0 x10^3/uL Prothrombin Time 13.1 SEC Prothromb Time International Ratio 1.0 Sodium Level 140 mmol/L Potassium Level 3.7 mmol/L Chloride Level 103 mmol/L Carbon Dioxide Level 28 mmol/L Anion Gap 9 Blood Urea Nitrogen 17 mg/dL Creatinine 1.1 mg/dL Estimated GFR (Cockcroft-Gault) 65.3 BUN/Creatinine Ratio 15 Glucose Level 126 mg/dL Lactic Acid Level 1.3 mmol/L Calcium Level 8.8 mg/dL Magnesium Level 1.8 mg/dL Total Bilirubin 0.5 mg/dL Aspartate Amino Transf (AST/SGOT) 20 U/L Alanine Aminotransferase (ALT/SGPT) 16 U/L Alkaline Phosphatase 61 U/L Troponin I Quantitative 0.024 ng/mL BT-Yhb-Y-Type Natriuretic Peptide 2319 pg/mL Total Protein 5.7 g/dL Albumin 3.2 g/dL Albumin/Globulin Ratio 1.3 Lipase 438 U/L Thyroid Stimulating Hormone (TSH) 2.451 uIU/mL Urine Collection Type Unknown Urine Color Yellow Urine Clarity Clear Urine pH 5.5 Urine Specific [place] 1.025 Urine Protein Negative mg/dL Urine Glucose (UA) Negative mg/dL Urine Ketones (Stick) Negative mg/dL Urine Blood Negative Urine Nitrite Negative Urine Bilirubin Negative Urine Urobilinogen Dipstick 0.2 mg/dL Urine Leukocyte Esterase Negative Urine RBC 0 /HPF Urine WBC 0 /HPF Urine Squamous Epithelial Cells Few /LPF Urine Bacteria 0 /HPF Urine Mucus Marked /LPF Imaging: CT A/P IMPRESSION: 1. Previously seen wall thickening of small bowel loops appears similar to slightly improved, although today's study may be less accurate due to the lack of oral contrast. No definite progression, however. 2. Multiple left renal lesions are identified. The 3 largest lesions measure slightly greater than fluid density. These could represent complex or hemorrhagic cysts but other etiology not excludable. Nonemergent renal ultrasound could further evaluate. 3. Mild gastric wall thickening. This could be due to incomplete distention, versus other etiology such as gastritis. 4. Other findings appear stable since previous exam. PE: GEN: NAD HEENT: Atraumatic, PERRL LUNGS: CTAB HEART: bradycardic ABD: NABS, S/ND/NT EXTREMITY: No edema SKIN: No rashes, no jaundice NEURO/PSYCH: A & O 3, anxious A/P: Dizziness, ?nausea, right-sided pain Irregular bowel habits CRC screen, h/o polyps - UTD S/p right hemicolectomy for Chilaiditi's syndrome Mildly elevated lipase H/o PSVT, now bradycardia -- Recurrent admissions for a variety of symptoms. Defer his concerns with his ears to primary. I believe there are plans to have the tumbling barrel painter see him as well. He asks me many questions about amiodarone an d wants me to write him a prescription for a refill right now - will defer this to primary/cardiology. ?image head Reviewed w/ Dr. Gonzalez - will check GB imaging and continue support. JORDON RODARTE October 04, 2018 13:12
--- NOTE | 2018-10-04 13:23 | EKG ---
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
[2018-10-04 13:30] VITALS: BP 116/63
[2018-10-04] MEDS ORDERED: ONDANSETRON ODT 4 MG TAB.RAPDIS. PO SCH (14:30)
[2018-10-04 15:00] VITALS: BP 120/67
[2018-10-04] MEDS ORDERED: METOPROLOL SUCC 24HR ER 25 MG TAB.ER.24H. PO SCH (15:00)
[2018-10-04] MEDS: AMIODARONE HCL 200 MG TABLET. PO SCH (15:00)
--- NOTE | 2018-10-04 15:00 | NUR ---
Patient has been up ambulating multiple times in room, and to bathroom with standby assistance. Initially, patient was resistant to calling for assistance, and has had bed and chair alarm utilized. Patient related that it is not good for his nighttime dizziness to spend much time in bed. Reinforced safety, and patient agreed to call for assistance. Patient has been contradictory with history of medications, tx. Initially, patient related that he used [facility] and [address], but then [place], and was using [place] one, but couldn't say where. He stated that he wasn't using the one at [address] anymore, and then further denied having any prescriptions filled there after last discharge. Nurse called this pharmacy and confirmed that he did have multiple prescriptions filled there recently. Patient also reported that he had gotten prescriptions from Dr Gan, but didn't get them filled. (including xanax) Rx had been picked up. Bedside commode was placed at bedside upon admission to floor, as well as urinal. Gait steady, but have reinforced to patient to call for assistance.
[2018-10-04] MEDS: PANTOPRAZOLE 40 MG TABLET.DR. PO SCH (15:43)
[2018-10-04] MEDS: ASPIRIN ENTERIC COATED 81 MG TABLET.DR. PO SCH (15:55)
--- NOTE | 2018-10-04 17:14 | EKG ---
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
--- NOTE | 2018-10-04 17:15 | NUR ---
Patient c/o dizziness occurring again, and had numbness tingling right face, which was new. Rapid was called. VSS, FSBS WNL, MATHEW. Bilateral hand electroformer strong, no drifting noted. No change in vision noted, speech clear. Patient was up in recliner. Call placed to Dr Taylor.
--- NOTE | 2018-10-04 17:40 | NUR ---
Dr Taylor has been notified of pt complaints, which have resolved.
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
[2018-10-04 19:00] VITALS: BP 134/79
[2018-10-04] MEDS: ATORVASTATIN CALCIUM 20 MG TABLET PO SCH (20:34)
[2018-10-04] MEDS: METOPROLOL SUCC 24HR ER 25 MG TAB.ER.24H. PO SCH (20:35)
[2018-10-04] MEDS: ONDANSETRON ODT 4 MG TAB.RAPDIS. PO PRN (20:36)
[2018-10-04 23:00] VITALS: BP 125/82
[2018-10-05] MEDS ORDERED: MORPHINE SULFATE 2 MG/ML VIAL. IV PRN (02:45)
[2018-10-05 03:00] VITALS: BP 123/85
[2018-10-05] MEDS ORDERED: KETOROLAC 30 MG/ML VIAL. IV PRN (04:15)
[2018-10-05] MEDS: ONDANSETRON ODT 4 MG TAB.RAPDIS. PO PRN (05:07)
--- NOTE | 2018-10-05 05:08 | RAD ---
Indication:Abdominal pain TECHNIQUE: 2 views of abdomen pelvis COMPARISON: CT abdomen pelvis from 10/04/2018. FINDINGS: No abnormally dilated bowel loops. No abnormal calcifications. Degenerative changes in the lumbar spine. Otherwise, visualized bones are within normal limits. No colonic stool burden. IMPRESSION: As above. Electronically signed by: Frank Polanco DO (10/05/2018 5:05 AM) [id number]
[2018-10-05 07:00] VITALS: BP 127/76
--- NOTE | 2018-10-05 08:20 | RAD ---
Right upper quadrant abdominal ultrasound, 10/05/2018: HISTORY: Abdominal pain and nausea The gallbladder was suboptimally visualized due to overlying bowel. The recent CT study demonstrated an unusual hepatic configuration with bowel lying along the anterior aspect of the right lobe of the liver and gallbladder fossa. No definite gallstones are seen. The gallbladder wall measures 3 mm which is at the upper limits of normal in thickness. No pericholecystic edema is seen. The common hepatic duct is of normal caliber. A 2.1 cm cyst is present in the superior aspect of the right lobe of the liver. No other hepatic abnormalities evident. A tiny cortical cyst is identified in the right kidney. The right kidney was otherwise unremarkable. The pancreatic region was obscured by overlying bowel. IMPRESSION: 1. Borderline gallbladder wall thickening without sonographic evidence of cholelithiasis. 2. Small hepatic cyst. 3. Obscuration of the pancreas due to overlying bowel. Electronically signed by: Azeem Anaya MD (10/05/2018 8:18 AM) [facility]
[2018-10-05] MEDS ORDERED: PANTOPRAZOLE 40 MG TABLET.DR. PO SCH (09:00)
[2018-10-05] MEDS ORDERED: MAGNESIUM CITRATE 296 ML SOLUTION. PO ONE (10:30)
[2018-10-05] MEDS: ONDANSETRON PF 4 MG/2 ML VIAL. IV PRN ×2 (10:52→20:50)
[2018-10-05] MEDS ORDERED: SINCALIDE 1.43 MCG in IV NORMAL SALINE 50ML 30 ML IV ONE (12:00)
--- NOTE | 2018-10-05 12:19 | PDOC ---
[facility] [facility] PROGRESS NOTE Chief Complaint Chief Complaint Abdominal pain Recent partial colectomy Dizziness Weakness Constipation Hypertension, Kidney Stone, AR, Other AR(12-15 YRS AGO)CHRONIC ABD PAIN cardiac stents, ABDOMINAL PROCEDURE, colon resection 4-5 weeks ago History of Present Illness History of Present Illness Patient seen and examined He complains of abdominal pain thinks he might be constipated Discussed with RN Vitals Vitals Vital Signs Date Time Temp Pulse Resp B/P (MAP) Pulse Ox O2 Delivery O2 Flow Rate FiO2 10/05/18 07:00 97.5 69 14 127/76 (93) 92 Room Air 97.5 Physical Exam General: Alert, Oriented X3, Cooperative, No acute distress Heart: Regular rate, Normal S1 Lungs: Clear Abdomen: Other (RLQ tender) Extremities: No clubbing, No cyanosis, No edema, Normal pulses, No tenderness/swelling Skin: No rashes, No breakdown, No significant lesion Labs Labs: Laboratory Tests Test 10/04/18 17:13 10/05/18 05:05 Glucose (Fingerstick) 110 mg/dL (70-99) Cortisol AM Sample 15.8 ug/dL (4.3-22.4) Review of Systems Review of Systems Complains of constipation complains of weakness Assessment and Plan Assessmemt and Plan Problems Medical Problems: (1) Diarrhea Status: Acute (2) Dizziness Status: Acute Abdominal pain Recent partial colectomy Dizziness Weakness Constipation Hypertension, Kidney Stone, AR, Other AR(12-15 YRS AGO)CHRONIC ABD PAIN cardiac stents, ABDOMINAL PROCEDURE, colon resection 4-5 weeks ago Plan Consult GI Magnesium sulfate Home meds DVT prophylaxis Full code Frequent labs IV hydration Comment Review of Relevant I have reviewed the following items jensen (where applicable) has been applied. Labs Laboratory Tests Test 10/04/18 07:29 10/04/18 10:21 10/04/18 17:13 10/05/18 05:05 White Blood Count 8.1 x10^3/uL (4.0-11.0) Red Blood Count 4.26 x10^6/uL (4.30-5.70) Hemoglobin 12.7 g/dL (13.0-17.5) Hematocrit 37.6 % (39.0-53.0) Mean Corpuscular Volume 88 fL (79-100) Mean Corpuscular Hemoglobin 30 pg (25-35) Mean Corpuscular Hemoglobin Concent 34 g/dL (31-37) Red Cell Distribution Width 14.3 % (11.5-14.5) Platelet Count 174 x10^3/uL (140-400) Neutrophils (%) (Auto) 73 % (31-73) Lymphocytes (%) (Auto) 17 % (24-48) Monocytes (%) (Auto) 10 % (0-9) Eosinophils (%) (Auto) 1 % (0-3) Basophils (%) (Auto) 0 % (0-3) Neutrophils # (Auto) 5.9 x10^3uL (1.8-7.7) Lymphocytes # (Auto) 1.3 x10^3/uL (1.0-4.8) Monocytes # (Auto) 0.8 x10^3/uL (0.0-1.1) Eosinophils # (Auto) 0.0 x10^3/uL (0.0-0.7) Basophils # (Auto) 0.0 x10^3/uL (0.0-0.2) Prothrombin Time 13.1 SEC (11.7-14.0) Prothromb Time International Ratio 1.0 (0.8-1.1) Sodium Level 140 mmol/L (136-145) Potassium Level 3.7 mmol/L (3.5-5.1) Chloride Level 103 mmol/L (98-107) Carbon Dioxide Level 28 mmol/L (21-32) Anion Gap 9 (6-14) Blood Urea Nitrogen 17 mg/dL (8-26) Creatinine 1.1 mg/dL (0.7-1.3) Estimated GFR (Cockcroft-Gault) 65.3 BUN/Creatinine Ratio 15 (6-20) Glucose Level 126 mg/dL (70-99) Lactic Acid Level 1.3 mmol/L (0.4-2.0) Calcium Level 8.8 mg/dL (8.5-10.1) Magnesium Level 1.8 mg/dL (1.8-2.4) Total Bilirubin 0.5 mg/dL (0.2-1.0) Aspartate Amino Transf (AST/SGOT) 20 U/L (15-37) Alanine Aminotransferase (ALT/SGPT) 16 U/L (16-63) Alkaline Phosphatase 61 U/L (46-116) Troponin I Quantitative 0.024 ng/mL (0.000-0.055) NJ-Lnd-C-Type Natriuretic Peptide 2319 pg/mL (0-449) Total Protein 5.7 g/dL (6.4-8.2) Albumin 3.2 g/dL (3.4-5.0) Albumin/Globulin Ratio 1.3 (1.0-1.7) Lipase 438 U/L (73-393) Thyroid Stimulating Hormone (TSH) 2.451 uIU/mL (0.358-3.74) Urine Collection Type Unknown Urine Color Yellow Urine Clarity Clear Urine pH 5.5 Urine Specific [place]ledge 1.025 Urine Protein Negative mg/dL (NEG-TRACE) Urine Glucose (UA) Negative mg/dL (NEG) Urine Ketones (Stick) Negative mg/dL (NEG) Urine Blood Negative (NEG) Urine Nitrite Negative (NEG) Urine Bilirubin Negative (NEG) Urine Urobilinogen Dipstick 0.2 mg/dL (0.2 mg/dL) Urine Leukocyte Esterase Negative (NEG) Urine RBC 0 /HPF (0-2) Urine WBC 0 /HPF (0-4) Urine Squamous Epithelial Cells Few /LPF Urine Bacteria 0 /HPF (0-FEW) Urine Mucus Marked /LPF Glucose (Fingerstick) 110 mg/dL (70-99) Cortisol AM Sample 15.8 ug/dL (4.3-22.4) Laboratory Tests Test 10/04/18 17:13 10/05/18 05:05 Glucose (Fingerstick) 110 mg/dL (70-99) Cortisol AM Sample 15.8 ug/dL (4.3-22.4) Medications Current Medications Fentanyl Citrate (Fentanyl 2ml Vial) 50 mcg PRN Q15MIN PRN IV PAIN GREATER THAN 3/10 Last administered on 10/04/18at 08:11; Start 10/04/18 at 07:45; Stop 10/05/18 at 07:44; Status DC Sodium Chloride 1,000 ml @ 1,000 mls/hr Q1H IV Last administered on 10/04/18at 08:11; Start 10/04/18 at 07:44; Stop 10/04/18 at 08:43; Status DC Iohexol (Omnipaque 240 Mg/ml) 30 ml 1X ONCE PO Last administered on 10/04/18at 08:45; Start 10/04/18 at 08:45; Stop 10/04/18 at 08:46; Status DC Iohexol (Omnipaque 300 Mg/ml) 75 ml 1X ONCE IV Last administered on 10/04/18at 08:45; Start 10/04/18 at 08:45; Stop 10/04/18 at 08:46; Status DC Info (CONTRAST GIVEN -- Rx MONITORING) 1 each PRN DAILY PRN MC SEE COMMENTS; Start 10/04/18 at 08:45; Stop 10/06/18 at 08:44 Sodium Chloride 1,000 ml @ 125 mls/hr 1X ONCE IV Last administered on 10/04/18at 15:56; Start 10/04/18 at 10:30; Stop 10/04/18 at 18:29; Status DC Pantoprazole Sodium (Protonix) 40 mg DAILYAC PO ; Start 10/04/18 at 16:30 Amiodarone HCl (Cordarone) 200 mg DAILY PO ; Start 10/04/18 at 15:00 Aspirin (Ecotrin) 81 mg DAILY PO Last administered on 10/04/18at 15:55; Start 10/04/18 at 15:00 Metoprolol Succinate (Toprol Xl) 25 mg DAILY PO ; Start 10/04/18 at 15:00; Status Cancel Ondansetron HCl (Zofran Odt) 4 mg PRN Q6HRS PO ; Start 10/04/18 at 14:30; Stop 10/04/18 at 16:39; Status DC Pantoprazole Sodium (Protonix) 40 mg DAILY PO ; Start 10/05/18 at 09:00; Status UNV Atorvastatin Calcium (Lipitor) 20 mg QHS PO Last administered on 10/04/18at 20:34; Start 10/04/18 at 21:00 Metoprolol Succinate (Toprol Xl) 25 mg QHS PO Last administered on 10/04/18at 20:35; Start 10/04/18 at 21:00 Ondansetron HCl (Zofran Odt) 4 mg PRN Q6HRS PRN PO NAUSEA/VOMITING Last admi nistered on 10/05/18at 05:07; Start 10/04/18 at 16:39 Morphine Sulfate (Morphine Sulfate) 2 mg PRN Q2HR PRN IV PAIN Last administered on 10/05/18at 02:56; Start 10/05/18 at 02:45 Ketorolac Tromethamine (Toradol 30mg Vial) 30 mg PRN Q6HRS PRN IV PAIN Last a dministered on 10/05/18at 05:06; Start 10/05/18 at 04:15; Stop 10/10/18 at 04:14 Lorazepam (Ativan Inj) 1 mg PRN Q4HRS PRN IV ANXIETY / AGITATION Last administered on 10/05/18at 10:52; Start 10/05/18 at 04:15 Magnesium Citrate (Citroma) 296 ml 1X ONCE PO ; Start 10/05/18 at 10:30; Stop 10/05/18 at 10:31; Status DC Ondansetron HCl (Zofran) 4 mg PRN Q6HRS PRN IV NAUSEA/VOMITING Last administered on 10/05/18at 10:52; Start 10/05/18 at 10:00 Sincalide 1.43 mcg/Sodium Chloride 30 ml @ 120 mls/hr 1X ONCE IV Last administered on 10/05/18at 12:06; Start 10/05/18 at 12:00; Stop 10/05/18 at 12:14; Status DC Active Scripts Active Levaquin (Levofloxacin) 500 Mg Tablet 1 Tab PO DAILY Amiodarone Hcl 200 Mg Tablet 200 Mg PO DAILY 30 Days Ondansetron Odt (Ondansetron) 4 Mg Tab.rapdis 1 Tab PO PRN Q6-8HRS Protonix (Pantoprazole Sodium) 40 Mg Tablet. 1 Tab PO DAILY Reported Metoprolol Succinate ( Xl ) (Metoprolol Succinate) 25 Mg Tab.er.24h 25 Mg PO DAILY Zocor (Simvastatin) 40 Mg Tablet 40 Mg PO HS Aspir 81 (Aspirin) 81 Mg Tablet.dr 81 Mg PO DAILY Vitals/I & O Vital Sign - Last 24 Hours 10/04/18 10/04/18 10/04/18 10/04/18 13:30 15:00 19:00 19:45 Temp 97.8 98.2 97.8 97.8 98.2 97.8 Pulse 47 67 83 Resp 16 14 20 B/P (MAP) 116/63 (80) 120/67 (84) 134/79 (97) Pulse Ox 97 97 94 O2 Delivery Room Air Room Air Room Air 10/04/18 10/04/18 10/05/18 10/05/18 20:35 23:00 02:56 03:00 Temp 98.3 98.2 98.3 98.2 Pulse 83 75 81 Resp 18 20 B/P (MAP) 134/79 125/82 (96) 123/85 (98) Pulse Ox 94 99 O2 Delivery Room Air 10/05/18 10/05/18 03:26 07:00 Temp 97.5 97.5 Pulse 69 Resp 14 B/P (MAP) 127/76 (93) Pulse Ox 92 O2 Delivery Room Air Room Air Intake and Output 10/04/18 10/04/18 10/05/18 15:00 23:00 07:00 Intake Total 240 ml 740 ml Output Total 120 ml Balance 120 ml 740 ml TITO DESAI III DO October 05, 2018 12:19
--- NOTE | 2018-10-05 12:27 | PDOC ---
Objective: Objective: Per RN - he complains that he needs to stool (though yesterday c/o diarrhea), has right-sided pain. Reviewed other notes - rapid response yesterday. Vital Signs: Vital Signs Date Time Temp Pulse Resp B/P (MAP) Pulse Ox O2 Delivery O2 Flow Rate FiO2 10/05/18 07:00 97.5 69 14 127/76 (93) 92 Room Air 97.5 Labs: Laboratory Tests Test 10/04/18 17:13 Glucose (Fingerstick) 110 mg/dL (70-99) Imaging: US IMPRESSION: 1. Borderline gallbladder wall thickening without sonographic evidence of cholelithiasis. 2. Small hepatic cyst. 3. Obscuration of the pancreas due to overlying bowel. HIDA pending PE: no exam A/P: Dizziness, right-sided pain, irregular bowel habits -- Out for imaging, await HIDA. Varying history and many complaints similar to past admissions. Other per Dr. Gonzalez. JORDON RODARTE October 05, 2018 12:27
[2018-10-05 13:38] VITALS: BP 134/84
--- NOTE | 2018-10-05 14:04 | NUR ---
SW following for discharge planning. Discussed with RN, pt is from home with significant other, currently no SW needs. SW will continue to follow for discharge planning.
[2018-10-05] MEDS: ASPIRIN ENTERIC COATED 81 MG TABLET.DR. PO SCH (14:10)
[2018-10-05] MEDS: PANTOPRAZOLE 40 MG TABLET.DR. PO SCH (14:10)
[2018-10-05] MEDS: AMIODARONE HCL 200 MG TABLET. PO SCH (14:11)
[2018-10-05] MEDS ORDERED: POLYETHYLENE GLYCOL 3350 17 GM PACKET. PO PRN (14:30)
--- NOTE | 2018-10-05 14:38 | RAD ---
Radionuclide hepatobiliary scan, 10/05/2018: HISTORY: Abdominal pain and nausea Following IV injection of 5.5 mCi of technetium 99 Choletec there was prompt uptake of the radionuclide from the blood stream by the liver. Activity is evident in the bile ducts and gallbladder at 10 minutes. The gallbladder demonstrates an unusual location located superolaterally. At 35 minutes activity extends into the small bowel. Additional imaging was then performed following IV injection of 1.4 mcg of cholecystokinin. The gallbladder ejection fraction was calculated at 65 percent. IMPRESSION: 1. No evidence of cystic duct or common bile duct obstruction. 2. The gallbladder ejection fraction is 65 percent. Electronically signed by: Azeem Anaya MD (10/05/2018 2:35 PM) [facility]
[2018-10-05 15:00] VITALS: BP 123/69
[2018-10-05 19:00] VITALS: BP 112/74
[2018-10-05] MEDS: ATORVASTATIN CALCIUM 20 MG TABLET PO SCH (20:50)
[2018-10-05] MEDS: METOPROLOL SUCC 24HR ER 25 MG TAB.ER.24H. PO SCH (20:50)
[2018-10-05 23:00] VITALS: BP 102/75
[2018-10-06 03:00] VITALS: BP 109/64
[2018-10-06] MEDS: PANTOPRAZOLE 40 MG TABLET.DR. PO SCH (06:58)
[2018-10-06 07:00] VITALS: BP 121/73
[2018-10-06] MEDS: ASPIRIN ENTERIC COATED 81 MG TABLET.DR. PO SCH (08:36)
[2018-10-06] MEDS: AMIODARONE HCL 200 MG TABLET. PO SCH (08:37)
[2018-10-06] MEDS ORDERED: POLYETHYLENE GLYCOL 3350 17 GM PACKET. PO SCH (09:00)
--- NOTE | 2018-10-06 09:22 | PDOC ---
Subjective: Subjective: "Well I was up all night with this!" - points to right abdomen. Thinks he might have seen blood with wiping. Objective: Objective: Reviewed w/ RN - up all night stooling after Mag Citrate, asking when he can go home, asking for amiodarone Rx. Vital Signs: Vital Signs Date Time Temp Pulse Resp B/P (MAP) Pulse Ox O2 Delivery O2 Flow Rate FiO2 10/06/18 08:37 71 121/73 10/06/18 07:00 98.3 16 93 Room Air 98.3 Labs: Cortisol 15.8 Imaging: US IMPRESSION: 1. Borderline gallbladder wall thickening without sonographic evidence of cholelithiasis. 2. Small hepatic cyst. 3. Obscuration of the pancreas due to overlying bowel. HIDA IMPRESSION: 1. No evidence of cystic duct or common bile duct obstruction. 2. The gallbladder ejection fraction is 65 percent. PE: GEN: NAD LUNGS: CTAB HEART: RRR ABD: NABS, S/ND, vague discomfort quite laterally to right - typical location NEURO/PSYCH: A & O 3 A/P: Recurrent dizziness, right-sided pain, irregular bowel habits -- DC per primary, defer amiodarone questions to them. Colonoscopy <1 month ago - suspect ?blood w/ wiping 2/2 hemorrhoids and diarrhea. JORDON RODARTE October 06, 2018 09:22
[2018-10-06 11:00] VITALS: BP 114/66
--- NOTE | 2018-10-06 14:01 | NUR ---
Discharge Note: DONALD DELONG Discharge instructions and discharge home medications reviewed with Patient and a copy given. All questions have been answered and understanding verbalized. The following instructions and handouts were given: medication and disease process education. Discontinued lines and drains: peripheral IV, tip intact. Patient discharged to home with self care via private vehicle. Patient left unit in stable condition with all personal belongings.
--- NOTE | 2018-10-06 19:29 | DS ---
DATE OF DISCHARGE: 10/06/2018 ADMISSION DIAGNOSES: 1. Abdominal pain, recent surgery with partial colectomy. 2. Weakness. 3. Dizziness. DISCHARGE DIAGNOSES: 1. Resolving abdominal pain. 2. Resolving constipation. HOSPITAL COURSE: The patient is a pleasant 73-year-old male who had a recent partial colon resection. He presented with an abdominal pain, dizziness and weakness. We did consult his surgeon and GI. Today, he is doing much better. I gave him mag citrate last night and he states he had several bowel movements and feels like a new man. He wants to go home. If okay with consultants, I plan to discharge him later today. His heart tones were normal this morning. His lungs were clear. His abdomen was soft with positive bowel sounds. No tenderness. Extremities, trace edema. DISPOSITION: Home if okay with consultants. ACTIVITY: As tolerated. DIET: Low sodium. MEDICATIONS: Please see the MRAD. Basically, I just resumed his home medications. I did leave him a prescription for some p.r.n., magnesium citrate and per his request a refill for his amiodarone 200 mg p.o. every day. TOTAL TIME: 33 minutes. TITO DESAI DO DR: JENN/kennedy JOB#: [id number] / [id number]
== END 2018-10-06 12:51 | disposition home or self-care (01) | DRG 392 ==
LOC: ER 07:10 → 5 NORTH 10:20
PROVIDERS: ADMIT Internal Medicine; ATTEND Internal Medicine
DX: K59.00 Constipation, unspecified (principal); E78.5 Hyperlipidemia, unspecified; G89.29 Other chronic pain; I10 Essential (primary) hypertension; I25.10 Atherosclerotic heart disease of native coronary artery without angina pectoris; K21.9 Gastro-esophageal reflux disease without esophagitis; K76.89 Other specified diseases of liver; M19.90 Unspecified osteoarthritis, unspecified site; H61.22 Impacted cerumen, left ear; Z87.442 Personal history of urinary calculi; Z82.49 Family history of ischemic heart disease and other diseases of the circulatory system; Z90.49 Acquired absence of other specified parts of digestive tract; Z95.5 Presence of coronary angioplasty implant and graft; I25.2 Old myocardial infarction; Z79.899 Other long term (current) drug therapy; Z79.82 Long term (current) use of aspirin
CPT/HCPCS: 36415; 74018; 74177; 76705; 78227; 80053; 81001; 82533; 82962; 83605; 83690; 83735; 83880; 84443; 84484; 85025; 85610; 93005; 96361; 96374; A9537; J1885; J2060; J2270; J2405; J2805; J3010; J7030; Q0162; Q9966; Q9967; 99285-25

== ENCOUNTER 2018-11-19 23:43 | Inpatient (IN) | payer MEDICARE ==
[~2018-11-19] VITALS: Ht 170.2 cm; Wt 71.7 kg
[~2018-11-19 23:43] MED LIST changes: +ATOR40TA59 PO; +CYAN10005 PO; +DOCU-109 PO; +FLUD0.1T PO; +FOLI1TAB16 PO; +LIDO700A21 TP; +MELA3TAB2 PO; +MIDO2.5T PO; +ONDA4TAB7 PO; -PANT40TA3 PO; +PANT40TA77 PO; +POLY17PO29 PO; +PYRI25TA3 PO; +PYRI60TA PO; +QUET25TA5 PO; +THIA100T22 PO; +TRAM50TA PO
[2018-11-20] MEDS ORDERED: MECLIZINE HCL 12.5 MG TABLET. PO ONE
[2018-11-20] MEDS ORDERED: ONDANSETRON PF 4 MG/2 ML VIAL. IV ONE
[2018-11-20] MEDS ORDERED: fentaNYL PF VIAL 100 MCG/2 ML VIAL IV ONE
--- NOTE | 2018-11-20 01:14 | RAD ---
CT scan of the head without contrast 11/20/2018 Clinical History: Head injury. Technique: Unenhanced, contiguous, 5 mm axial sections were obtained through the head. One or more of the following individualized dose reduction techniques were utilized for this study: 1. Automated exposure control. 2. Adjustment of the mA and/or kV according to patient size. 3. Use of iterative reconstruction technique. Findings: Comparison study is dated 10/10/2018. There is generalized parenchymal atrophy. Areas of decreased attenuation are seen within the periventricular and subcortical white matter of both cerebral hemispheres consistent with areas of small vessel ischemic disease. No acute parenchymal abnormality is seen. No extra-axial fluid collection is noted. No skull fracture is seen. Impression: No acute intracranial abnormality is seen. CT scan of the cervical spine without contrast 11/20/2018 Clinical history: Neck injury. Technique: Unenhanced, contiguous, 0.625 mm axial sections were obtained through the cervical spine. Axial, coronal and sagittal reconstructed images were obtained. One or more of the following individualized dose reduction techniques were utilized for this study: 1. Automated exposure control. 2. Adjustment of the mA and/or kV according to patient size. 3. Use of iterative reconstruction technique. Findings: Sagittal coronal reconstructed images demonstrate mild lateral curvature of the cervical spine, convex to the right. Degenerative changes are seen throughout the cervical disc spaces consisting of vertebral endplate sclerosis and mild to moderate anterior and posterior vertebral body osteophyte formation. No fracture or subluxation of the cervical vertebrae is seen. Degenerative changes are seen involving the uncovertebral and facet joints throughout the cervical disc spaces. Impression: No fracture or subluxation of the cervical vertebra is identified. Electronically signed by: Jarad Tobin MD (11/20/2018 1:11 AM) [facility]
[2018-11-20 01:18] LABS: BASO % 0 % (0-3); EOS % 0 % (0-3); HEMATOCRIT 36.4 % (39.0-53.0); HEMOGLOBIN 12.1 g/dL (13.0-17.5); LYMPH # 0.9 x10^3/uL (1.0-4.8); LYMPH % 18 % (24-48); MEAN CORPUSCULAR HEMOGLOBIN 30 pg (25-35); MEAN CORPUSCULAR HGB CONC 33 g/dL (31-37); MEAN CORPUSCULAR VOLUME 89 fL (79-100); MONO # 0.5 x10^3/uL (0.0-1.1); MONO % 10 % (0-9); NEUT # 3.7 x10^3/uL (1.8-7.7); NEUT % 72 % (31-73); PLATELET COUNT 147 x10^3/uL (140-400); RED BLOOD COUNT 4.08 x10^6/uL (4.30-5.70); RED CELL DISTRIBUTION WIDTH 15.2 % (11.5-14.5); WHITE BLOOD COUNT 5.1 x10^3/uL (4.0-11.0)
[2018-11-20 01:25] LABS: BILIRUBIN,URINE NEGATIVE (NEG); CLARITY,URINE CLEAR; COLOR,URINE YELLOW; NITRITE,URINE NEGATIVE (NEG); PH,URINE 6.5; PROTEIN,URINE NEGATIVE (NEG-TRACE); UROBILINOGEN,URINE 0.2 mg/dL (0.2 mg/dL)
[2018-11-20 01:34] LABS: CALCIUM 8.5 mg/dL (8.5-10.1); CREATININE 1.1 mg/dL (0.7-1.3); GFR 65.3
[2018-11-20 01:41] LABS: ALBUMIN 3.1 g/dL (3.4-5.0); ALBUMIN/GLOBULIN RATIO 0.9 (1.0-1.7); TOTAL BILIRUBIN 0.5 mg/dL (0.2-1.0); TOTAL PROTEIN 6.6 g/dL (6.4-8.2)
[2018-11-20 01:44] LABS: BACTERIA,URINE 0 /HPF (0-FEW); RBC,URINE 0 /HPF (0-2); SQUAMOUS EPITHELIAL CELL,UR OCC /LPF; WBC,URINE OCC /HPF (0-4)
--- NOTE | 2018-11-20 02:03 | PHYS DOC ---
Past Medical History Past Medical History: CAD, Hypertension, Kidney Stone, [place], Other Additional Past Medical Histor: OH(12-15 YRS AGO), CHRONIC ABD PAIN Past Surgical History: Other Additional Past Surgical Histo: cardiac stents, ABDOMINAL PROCEDURE, colon resection Alcohol Use: None Drug Use: None Adult General Chief Complaint Chief Complaint: WEAKNESS/GENERALIZED HPI HPI Patient is a 73 year old [m biba dizziness chset heaviness vomiting has hx of bad bowels this am was feeling ok, had prune juice , then had vomiting. then developed dizziness with some mild blurred vision right eye, worse dizziness with certain head position. has had intermittent chest heaviness all day known stents, recent admit with neg mpi. no change in chronic abdo pain fell earlier in the day as well hit the back of the head also hit the lower back pain is increasing all day today as well. Review of Systems Review of Systems Constitutional: Denies fever or chills [] Eyes: Denies change in visual acuity, redness, or eye pain [] Musculoskeletal: Denies back pain or joint pain [] Integument: Denies rash or skin lesions [] Neurologic: Denies headache, focal weakness or sensory changes [] Endocrine: Denies polyuria or polydipsia [] All other systems were reviewed and found to be within normal limits, except as documented in this note. Current Medications Current Medications Current Medications Medications (Trade) Dose Ordered Sig/Kaylie Start Time Stop Time Status Last Admin Dose Admin Fentanyl Citrate (Fentanyl 2ml Vial) 50 mcg 1X ONCE 11/20/18 00:00 11/20/18 00:03 DC 11/20/18 01:39 50 MCG Lorazepam (Ativan Inj) 1 mg 1X ONCE 11/20/18 01:30 11/20/18 01:31 DC 11/20/18 01:40 1 MG Meclizine HCl (Antivert) 25 mg 1X ONCE 11/20/18 00:00 11/20/18 00:03 DC 11/20/18 01:40 25 MG Ondansetron HCl (Zofran) 4 mg 1X ONCE 11/20/18 00:00 11/20/18 00:03 DC 11/20/18 01:39 4 MG Allergies Allergies Allergies Coded Allergies Type Severity Reaction Last Updated Verified Penicillins Allergy Unknown PATIENT DOES NOT REMEMBER 11/15/18 Yes hydrocodone Adverse Reaction Intermediate Nausea 11/15/18 Yes Physical Exam Physical Exam Constitutional: Well developed, well nourished, no acute distress, non-toxic appearance. [] HENT: Normocephalic, atraumatic, bilateral external ears normal, oropharynx dry, no oral exudates, nose normal. [] Eyes: PERRLA, EOMI, conjunctiva normal, no discharge. [] Neck: Normal range of motion, no tenderness, supple, no stridor. [] Cardiovascular:Heart rate regular rhythm, possible to a 6 murmur Lungs & Thorax: Bilateral breath sounds clear to auscultation [] Abdomen: Bowel sounds normal, soft, mild nonspecific patient states this is stable tenderness, no masses, no pulsatile masses. [] Skin: Warm, dry, no erythema, no rash. [] Back: There is paraspinous tenderness on the right lower back no focal midline tenderness Extremities: No tenderness, no cyanosis, no clubbing, ROM intact, no edema. [] Neurologic: Alert and oriented X 3, normal motor function, normal sensory function, no focal deficits noted. []Uslmyd-rlfr-gyespj intact bilaterally cranial nerves are essentially intact pupils are intact Psychologic: Affect normal, judgement normal, mood normal. [] Current Patient Data Vital Signs Vital Signs Date Time Temp Pulse Resp B/P (MAP) Pulse Ox O2 Delivery O2 Flow Rate FiO2 11/20/18 01:39 22 11/20/18 00:35 98.3 92 125/72 (89) 92 Room Air 98.3 Lab Values Laboratory Tests Test 11/20/18 00:50 White Blood Count 5.1 x10^3/uL (4.0-11.0) Red Blood Count 4.08 x10^6/uL (4.30-5.70) L Hemoglobin 12.1 g/dL (13.0-17.5) L Hematocrit 36.4 % (39.0-53.0) L Mean Corpuscular Volume 89 fL (79-100) Mean Corpuscular Hemoglobin 30 pg (25-35) Mean Corpuscular Hemoglobin Concent 33 g/dL (31-37) Red Cell Distribution Width 15.2 % (11.5-14.5) H Platelet Count 147 x10^3/uL (140-400) Neutrophils (%) (Auto) 72 % (31-73) Lymphocytes (%) (Auto) 18 % (24-48) L Monocytes (%) (Auto) 10 % (0-9) H Eosinophils (%) (Auto) 0 % (0-3) Basophils (%) (Auto) 0 % (0-3) Neutrophils # (Auto) 3.7 x10^3/uL (1.8-7.7) Lymphocytes # (Auto) 0.9 x10^3/uL (1.0-4.8) L Monocytes # (Auto) 0.5 x10^3/uL (0.0-1.1) Eosinophils # (Auto) 0.0 x10^3/uL (0.0-0.7) Basophils # (Auto) 0.0 x10^3/uL (0.0-0.2) Prothrombin Time 13.0 SEC (11.7-14.0) Prothrombin Time INR 1.0 (0.8-1.1) Urine Collection Type Unknown Urine Color Yellow Urine Clarity Clear Urine pH 6.5 Urine Specific [place]chs 1.015 Urine Protein Negative mg/dL (NEG-TRACE) Urine Glucose (UA) Negative mg/dL (NEG) Urine Ketones (Stick) Negative mg/dL (NEG) Urine Blood Negative (NEG) Urine Nitrite Negative (NEG) Urine Bilirubin Negative (NEG) Urine Urobilinogen Dipstick 0.2 mg/dL (0.2 mg/dL) Urine Leukocyte Esterase Negative (NEG) Urine RBC 0 /HPF (0-2) Urine WBC Occ /HPF (0-4) Urine Squamous Epithelial Cells Occ /LPF Urine Bacteria 0 /HPF (0-FEW) Urine Mucus Slight /LPF Sodium Level 138 mmol/L (136-145) Potassium Level 4.0 mmol/L (3.5-5.1) Chloride Level 101 mmol/L (98-107) Carbon Dioxide Level 28 mmol/L (21-32) Anion Gap 9 (6-14) Blood Urea Nitrogen 21 mg/dL (8-26) Creatinine 1.1 mg/dL (0.7-1.3) Estimated GFR (Cockcroft-Gault) 65.3 BUN/Creatinine Ratio 19 (6-20) Glucose Level 102 mg/dL (70-99) H Calcium Level 8.5 mg/dL (8.5-10.1) Total Bilirubin 0.5 mg/dL (0.2-1.0) Aspartate Amino Transferase (AST) 29 U/L (15-37) Alanine Aminotransferase (ALT) 14 U/L (16-63) L Alkaline Phosphatase 67 U/L (46-116) Troponin I Quantitative 0.074 ng/mL (0.000-0.055) XT-Fkx-Z-Type Natriuretic Peptide 3239 pg/mL (0-449) H Total Protein 6.6 g/dL (6.4-8.2) Albumin 3.1 g/dL (3.4-5.0) L Albumin/Globulin Ratio 0.9 (1.0-1.7) L Laboratory Tests 11/20/18 00:50 Laboratory Tests 11/20/18 00:50 EKG EKG nsr no stemi no ischemia.[] Radiology/Procedures Radiology/Procedures my read cxr and lspine xray no definite abnoramlity[] Impressions: ahead cspine ct negative aucte One or more of the following individualized dose reduction techniques were utilized for this study: 1. Automated exposure control. 2. Adjustment of the mA and/or kV according to patient size. 3. Use of iterative reconstruction technique. Findings: Comparison study is dated 10/10/2018. There is generalized parenchymal atrophy. Areas of decreased attenuation are seen within the periventricular and subcortical white matter of both cerebral hemispheres consistent with areas of small vessel ischemic disease. No acute parenchymal abnormality is seen. No extra-axial fluid collection is noted. No skull fracture is seen. Impression: No acute intracranial abnormality is seen. CT scan of the cervical spine without contrast 11/20/2018 Clinical history: Neck injury. Technique: Unenhanced, contiguous, 0.625 mm axial sections were obtained through the cervical spine. Axial, coronal and sagittal reconstructed images were obtained. One or more of the following individualized dose reduction techniques were utilized for this study: 1. Automated exposure control. 2. Adjustment of the mA and/or kV according to patient size. 3. Use of iterative reconstruction technique. Findings: Sagittal coronal reconstructed images demonstrate mild lateral curvature of the cervical spine, convex to the right. Degenerative changes are seen throughout the cervical disc spaces consisting of vertebral endplate sclerosis and mild to moderate anterior and posterior vertebral body osteophyte formation. No fracture or subluxation of the cervical vertebrae is seen. Degenerative changes are seen involving the uncovertebral and facet joints throughout the cervical disc spaces. Impression: No fracture or subluxation of the cervical vertebra is identified. Electronically signed by: Jarad Tobin MD (11/20/2018 1:11 AM) [facility] Course & Med Decision Making Course & Med Decision Making Pertinent Labs and Imaging studies reviewed. (See chart for details) 73 yo m biba p/w dizziness and some chest heaviness. Of note known coronary disease and multiple ER visits and admissions multiple medical history hx of same trop slightly above last one. nonfocal neruo exam head ct negative could be vertigo. pt is very dizzy in er. will admit for obs, serial troponins, admit to [facility]. Dragon Disclaimer Dragon Disclaimer This electronic medical record was generated, in whole or in part, using a voice recognition dictation system. Departure Departure Impression: Primary Impression: Dizziness Additional Impression: Elevated troponin Disposition: 09 ADMITTED INPATIENT Admitting Physician: RON Condition: STABLE Referrals: JENNI BOURNE MD (PCP) Problem Qualifiers BERNARD HOLLIS MD Nov 20, 2018 02:03
[2018-11-20] MEDS ORDERED: ONDANSETRON PF 4 MG/2 ML VIAL. IV PRN ×2 (02:15→10:00)
[2018-11-20 03:00] VITALS: BP 139/70
--- NOTE | 2018-11-20 05:52 | RAD ---
AP portable chest radiograph 11/20/2018 Clinical History: Weakness. An AP erect portable digital radiograph of the chest was obtained. Comparison study is dated 10/10/2018. The cardiac silhouette is borderline enlarged. The thoracic aorta is tortuous. Left lower lobe atelectasis and/or infiltrate is seen. No pneumothorax or pleural effusion is noted. The osseous structures are unchanged. IMPRESSION: Left lower lobe atelectasis and/or infiltrate. Electronically signed by: Jarad Tobin MD (11/20/2018 5:49 AM) [facility]
--- NOTE | 2018-11-20 05:54 | RAD ---
AP and lateral lumbar spine radiographs 11/10/2018 CLINICAL HISTORY: Low back pain. Weakness. AP and 2 lateral digital radiographs of lumbar spine were obtained. Minimal S-shaped curvature of the thoracolumbar spine is seen. No fracture or subluxation of the lumbar vertebrae seen. Degenerative changes are seen involving the lumbar disc spaces consisting of varying degrees of disc space narrowing, vertebral endplate sclerosis and mild to moderate anterior and posterior vertebral body osteophyte formation. Degenerative changes are seen involving the facet joints throughout the lumbar disc spaces. Atherosclerotic calcification of the abdominal aorta is seen. No fracture or subluxation of the lumbar vertebrae is noted. IMPRESSION: Degenerative changes are seen involving the lumbar spine as discussed above. No acute osseous abnormality is seen. Electronically signed by: Jarad Tobin MD (11/20/2018 5:50 AM) [id number]
[2018-11-20] MEDS ORDERED: ASPIRIN CHEWABLE 81 MG TABLET. PO ONE (06:00)
[2018-11-20 07:00] VITALS: BP 119/65
--- NOTE | 2018-11-20 07:32 | EKG ---
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
[2018-11-20] MEDS ORDERED: ACETAMINOPHEN 500 MG TABLET PO PRN (10:00)
[2018-11-20] MEDS: AMIODARONE HCL 200 MG TABLET. PO SCH (10:30)
[2018-11-20 11:00] VITALS: BP_SYST 102; BP_SYST 123; BP_SYST 99; BP_DIAS 62; BP_DIAS 64; BP_DIAS 68
[2018-11-20] MEDS: LIDOCAINE (700MG/PATCH) PATCH. TD SCH (11:54)
[2018-11-20] MEDS: FLUDROCORTISONE 0.1 MG TABLET PO SCH (11:55)
[2018-11-20] MEDS: POLYETHYLENE GLYCOL 3350 17 GM PACKET. PO SCH (11:55)
[2018-11-20] MEDS: DOCUSATE SODIUM 100 MG CAPSULE. PO SCH ×2 (11:55→20:23)
[2018-11-20] MEDS: CYANOCOBALAMIN (VITAMIN B-12) 1,000 MCG TABLET. PO SCH (11:55)
[2018-11-20] MEDS: ASPIRIN ENTERIC COATED 81 MG TABLET.DR. PO SCH (11:55)
[2018-11-20] MEDS: PANTOPRAZOLE 40 MG TABLET.DR. PO SCH (11:55)
[2018-11-20] MEDS: PYRIDOSTIGMINE BROMIDE 60 MG TABLET PO SCH ×4 (11:56→20:24)
[2018-11-20] MEDS: FOLIC ACID 1 MG TABLET. PO SCH (11:56)
[2018-11-20] MEDS: QUEtiapine 25 MG TABLET. PO SCH ×2 (11:56→20:24)
[2018-11-20] MEDS: THIAMINE 100 MG TABLET. PO SCH (11:56)
[2018-11-20] MEDS: PYRIDOXINE 50 MG TABLET. PO SCH ×2 (12:04→20:23)
--- NOTE | 2018-11-20 13:00 | PDOC1 ---
History and Physical Date of Admission Date of Admission DATE: 11/20/18 TIME: 12:57 Identification/Chief Complaint Chief Complaint anxiety at [facility]? Source Source: Caregiver, Chart review, Patient History of Present Illness History of Present Illness He is not the best historian, slightly hard of hearing, 73-year-old white male, came from [facility]. Looking at triage note, ran out of anxiety medications and was behaving weirdly at the [facility] resident hence sent to our ER. But admitted because troponin was elevated highest 0.07�2,and an elevated third set too. BNP 3300, chest x-ray? CHF Patient is comfortable, not complaining of chest pain, no JVD distention, no leg edema, no PND, no orthopnea, watching TV comfortably. Again, not the best historian unsure if he has history of CAD. Will consult cardiology. But he did already eat a diet as ordered by colleague Past Medical History Cardiovascular: CAD, CHF, Other Pulmonary: No pertinent hx CENTRAL NERVOUS SYSTEM: Other GI: Constipation, GERD, Other Heme/Onc: No pertinent hx Hepatobiliary: Cirrhosis Psych: No pertinent hx Musculoskeletal: low back pain, Osteoarthritis Infectious disease: No pertinent hx Renal/: Benign prostatic enlarg., Other Endocrine: No pertinent hx Past Surgical History Past Surgical History: Hernia Repair, Tonsillectomy, Colon Resection, Other Family History Family History: Coronary Artery Disease, Hypertension Social History Smoke: No ALCOHOL: none Drugs: None Current Problem List Problem List Problems Medical Problems: (1) Dizziness Status: Acute (2) Elevated troponin Status: Acute Current Medications Current Medications Current Medications Meclizine HCl (Antivert) 25 mg 1X ONCE PO Last administered on 11/20/18at 01:40; Start 11/20/18 at 00:00; Stop 11/20/18 at 00:03; Status DC Ondansetron HCl (Zofran) 4 mg 1X ONCE IV Last administered on 11/20/18at 01:39; Start 11/20/18 at 00:00; Stop 11/20/18 at 00:03; Status DC Fentanyl Citrate (Fentanyl 2ml Vial) 50 mcg 1X ONCE IV Last administered on 11/20/18at 01:39; Start 11/20/18 at 00:00; Stop 11/20/18 at 00:03; Status DC Lorazepam (Ativan Inj) 1 mg 1X ONCE IV Last administered on 11/20/18at 01:40; Start 11/20/18 at 01:30; Stop 11/20/18 at 01:31; Status DC Ondansetron HCl (Zofran) 4 mg PRN Q8HRS PRN IV NAUSEA/VOMITING; Start 11/20/18 at 02:15; Stop 11/20/18 at 09:53; Status DC Morphine Sulfate (Morphine Sulfate) 2 mg PRN Q2HR PRN IV PAIN; Start 11/20/18 at 02:15; Stop 11/21/18 at 02:14 Aspirin (Children'S Aspirin) 324 mg 1X ONCE PO Last administered on 11/20/18at 06:10; Start 11/20/18 at 06:00; Stop 11/20/18 at 06:01; Status DC Ondansetron HCl (Zofran) 4 mg PRN Q6HRS PRN IV NAUSEA/VOMITING; Start 11/20/18 at 10:00 Acetaminophen (Tylenol) 500 mg PRN Q6HRS PRN PO MILD PAIN / TEMP; Start 11/20/18 at 10:00 Tramadol HCl (Ultram) 50 mg PRN Q6HRS PRN PO PAIN; Start 11/20/18 at 10:00 Lidocaine (Lidoderm) 1 patch DAILY TD Last administered on 11/20/18at 11:54; Start 11/20/18 at 10:30 Miscellaneous (Lidoderm Patch Removal) 1 ea QHS ; Start 11/20/18 at 21:00 Amiodarone HCl (Cordarone) 200 mg DAILY PO ; Start 11/20/18 at 10:30 Aspirin (Ecotrin) 81 mg DAILY PO Last administered on 11/20/18at 11:55; Start 11/20/18 at 10:30 Atorvastatin Calcium (Lipitor) 40 mg HS PO ; Start 11/20/18 at 21:00 Cyanocobalamin (Vitamin B-12) 1,000 mcg DAILY PO Last administered on 11/20/18at 11:55; Start 11/20/18 at 10:30 Fludrocortisone Acetate (Florinef) 0.2 mg DAILY PO Last administered on 11/20/18 11:55; Start 11/20/18 at 10:30 Folic Acid (Folic Acid) 1 mg DAILY PO Last administered on 11/20/18at 11:56; Start 11/20/18 at 10:30 Lidocaine (Lidoderm) 1 patch DAILY TP ; Start 11/21/18 at 09:00; Status UNV Pantoprazole Sodium (Protonix) 40 mg DAILYAC PO Last administered on 11/20/18at 11:55; Start 11/20/18 at 10:30 Non-Formulary Medication (Melatonin ) 5 mg HS PO ; Start 11/20/18 at 21:00; Status UNV Midodrine (Proamatine) 2.5 mg AIH187 PO ; Start 11/20/18 at 13:00 Ondansetron HCl (Zofran Odt) 4 mg Q8HRS PO ; Start 11/20/18 at 14:00 Polyethylene Glycol (miraLAX PACKET) 17 gm DAILY PO Last administered on 11/20/18at 11:55; Start 11/20/18 at 10:30 Pyridostigmine [place] (Mestinon) 30 mg QID PO Last administered on 11/20/18 11:56; Start 11/20/18 at 10:30 Pyridoxine HCl (Vitamin B-6) 25 mg BID PO Last administered on 11/20/18at 12:04; Start 11/20/18 at 10:30 Quetiapine Fumarate (SEROquel) 25 mg BID PO Last administered on 11/20/18 11:56; Start 11/20/18 at 10:30 Thiamine Mononitrate (Vitamin B-1) 100 mg DAILY PO Last administered on 11/20at 11:56; Start 11/20/18 at 10:30 Non-Formulary Medication (Tramadol Hcl ) 50 mg Q8HRS PRN PO PAIN; Start 11/20/18 at 10:00; Status UNV Docusate Sodium (Colace) 100 mg BID PO Last administered on 11/20/18 11:55; Start 11/20/18 at 10:30 Alprazolam (Xanax) 0.25 mg PRN Q8HRS PRN PO ANXIETY / AGITATION; Start 11/20/18 at 10:00 Active Scripts Active Amiodarone Hcl 200 Mg Tablet 200 Mg PO DAILY 30 Days Ondansetron Odt (Ondansetron) 4 Mg Tab.rapdis 1 Tab PO PRN Q6-8HRS Protonix (Pantoprazole Sodium) 40 Mg Tablet. 1 Tab PO DAILY Reported Pyridostigmine [place] 60 Mg Tablet 30 Mg PO QID Lidocaine PATCH (Lidocaine) 1 Each Adh..patch 1 Each TP DAILY REMOVE AFTER 12 HOURS Tramadol Hcl 50 Mg Tablet 50 Mg PO Q8HRS PRN Vitamin B-1 (Thiamine Mononitrate) 100 Mg Tablet 100 Mg PO DAILY Seroquel (Quetiapine Fumarate) 25 Mg Tablet 25 Mg PO BID Pyridoxine Hcl 25 Mg Tablet 25 Mg PO BID Miralax (Polyethylene Glycol 3350) 17 Gm Powd.pack 1 Packet PO DAILY Zofran (Ondansetron Hcl) 4 Mg Tablet 1 Tab PO Q8HRS Midodrine Hcl 2.5 Mg Tablet 2.5 Mg PO TID Melatonin 3 Mg Tablet 5 Mg PO HS Folic Acid 1 Mg Tablet 1 Tab PO DAILY Fludrocortisone Acetate 0.1 Mg Tablet 0.2 Mg PO DAILY Vitamin B-12 (Cyanocobalamin (Vitamin B-12)) 1,000 Mcg Tablet 1,000 Mcg PO DAILY Colace (Docusate Sodium) 100 Mg Capsule 1 Cap PO BID Atorvastatin Calcium 40 Mg Tablet 40 Mg PO HS Aspir 81 (Aspirin) 81 Mg Tablet. 81 Mg PO DAILY Allergies Allergies: Coded Allergies: Penicillins (Verified Allergy, Unknown, PATIENT DOES NOT REMEMBER, 11/15/18) hydrocodone (Verified Adverse Reaction, Intermediate, Nausea, 11/15/18) Pt stated this morning that Hydrocodone makes him sick to his stomach, even when given with food ROS Review of System A 14 point ROS was completed with the following noted as positive: Other systems reviewed and negative. \CONSTITUTIONAL: No fever or chills EYES: No recent changes SKIN: No rash or itching CARDIOVASCULAR: No chest pain, syncope, palpitations, or edema RESPIRATORY: No SOB or cough GASTROINTESTINAL: No nausea, vomiting or abdominal pain NEUROLOGICAL: No headaches or weakness ENDOCRINE: No cold or heat intolerance GENITOURINARY: No urgency or frequency of urination MUSCULOSKELETAL: No back pain or joint pain LYMPHATICS: No enlarged lymph nodes PSYCHIATRIC: No anxiety or depression Physical Exam General: Alert, Oriented X3, Cooperative, No acute distress HEENT: Atraumatic, PERRLA, EOMI Lungs: Clear to auscultation, Normal air movement Heart: S1S2, RRR, no thrills, no rubs, no gallops, no murmurs Cardiovascular: S1, S2 Abdomen: Normal bowel sounds, Soft, No tenderness, No hepatosplenomegaly, No masses Male Genitals Exam: normal genitalia, normal prostate Rectal Exam: not examined PELVIC: Nml ext genitalia Extremities: No clubbing, No cyanosis, No edema, Normal pulses, No tenderness/swelling Skin: No rashes, No breakdown, No significant lesion Neuro: Normal gait, Normal speech, Strength at 5/5 X4 ext, Normal tone, Sensation intact, Cranial nerves 3-12 NL, Reflexes 2+ Psych/Mental Status: Mental status NL, Mood NL Vitals Vitals Vital Signs Date Time Temp Pulse Resp B/P (MAP) Pulse Ox O2 Delivery O2 Flow Rate FiO2 11/20/18 11:00 74 20 99/62 (74) 97 Room Air 11/20/18 11:00 98.3 98.3 Labs Labs Laboratory Tests Test 11/20/18 00:50 11/20/18 04:50 11/20/18 08:40 White Blood Count 5.1 x10^3/uL (4.0-11.0) Red Blood Count 4.08 x10^6/uL (4.30-5.70) Hemoglobin 12.1 g/dL (13.0-17.5) Hematocrit 36.4 % (39.0-53.0) Mean Corpuscular Volume 89 fL (79-100) Mean Corpuscular Hemoglobin 30 pg (25-35) Mean Corpuscular Hemoglobin Concent 33 g/dL (31-37) Red Cell Distribution Width 15.2 % (11.5-14.5) Platelet Count 147 x10^3/uL (140-400) Neutrophils (%) (Auto) 72 % (31-73) Lymphocytes (%) (Auto) 18 % (24-48) Monocytes (%) (Auto) 10 % (0-9) Eosinophils (%) (Auto) 0 % (0-3) Basophils (%) (Auto) 0 % (0-3) Neutrophils # (Auto) 3.7 x10^3/uL (1.8-7.7) Lymphocytes # (Auto) 0.9 x10^3/uL (1.0-4.8) Monocytes # (Auto) 0.5 x10^3/uL (0.0-1.1) Eosinophils # (Auto) 0.0 x10^3/uL (0.0-0.7) Basophils # (Auto) 0.0 x10^3/uL (0.0-0.2) Prothrombin Time 13.0 SEC (11.7-14.0) Prothromb Time International Ratio 1.0 (0.8-1.1) Urine Collection Type Unknown Urine Color Yellow Urine Clarity Clear Urine pH 6.5 Urine Specific [place] 1.015 Urine Protein Negative mg/dL (NEG-TRACE) Urine Glucose (UA) Negative mg/dL (NEG) Urine Ketones (Stick) Negative mg/dL (NEG) Urine Blood Negative (NEG) Urine Nitrite Negative (NEG) Urine Bilirubin Negative (NEG) Urine Urobilinogen Dipstick 0.2 mg/dL (0.2 mg/dL) Urine Leukocyte Esterase Negative (NEG) Urine RBC 0 /HPF (0-2) Urine WBC Occ /HPF (0-4) Urine Squamous Epithelial Cells Occ /LPF Urine Bacteria 0 /HPF (0-FEW) Urine Mucus Slight /LPF Sodium Level 138 mmol/L (136-145) Potassium Level 4.0 mmol/L (3.5-5.1) Chloride Level 101 mmol/L (98-107) Carbon Dioxide Level 28 mmol/L (21-32) Anion Gap 9 (6-14) Blood Urea Nitrogen 21 mg/dL (8-26) Creatinine 1.1 mg/dL (0.7-1.3) Estimated GFR (Cockcroft-Gault) 65.3 BUN/Creatinine Ratio 19 (6-20) Glucose Level 102 mg/dL (70-99) Calcium Level 8.5 mg/dL (8.5-10.1) Total Bilirubin 0.5 mg/dL (0.2-1.0) Aspartate Amino Transf (AST/SGOT) 29 U/L (15-37) Alanine Aminotransferase (ALT/SGPT) 14 U/L (16-63) Alkaline Phosphatase 67 U/L (46-116) Troponin I Quantitative 0.074 ng/mL (0.000-0.055) 0.067 ng/mL (0.000-0.055) 0.074 ng/mL (0.000-0.055) QD-Yri-X-Type Natriuretic Peptide 3239 pg/mL (0-449) Total Protein 6.6 g/dL (6.4-8.2) Albumin 3.1 g/dL (3.4-5.0) Albumin/Globulin Ratio 0.9 (1.0-1.7) Lipase 228 U/L (73-393) Laboratory Tests Test 11/20/18 00:50 11/20/18 04:50 11/20/18 08:40 White Blood Count 5.1 x10^3/uL (4.0-11.0) Red Blood Count 4.08 x10^6/uL (4.30-5.70) Hemoglobin 12.1 g/dL (13.0-17.5) Hematocrit 36.4 % (39.0-53.0) Mean Corpuscular Volume 89 fL (79-100) Mean Corpuscular Hemoglobin 30 pg (25-35) Mean Corpuscular Hemoglobin Concent 33 g/dL (31-37) Red Cell Distribution Width 15.2 % (11.5-14.5) Platelet Count 147 x10^3/uL (140-400) Neutrophils (%) (Auto) 72 % (31-73) Lymphocytes (%) (Auto) 18 % (24-48) Monocytes (%) (Auto) 10 % (0-9) Eosinophils (%) (Auto) 0 % (0-3) Basophils (%) (Auto) 0 % (0-3) Neutrophils # (Auto) 3.7 x10^3/uL (1.8-7.7) Lymphocytes # (Auto) 0.9 x10^3/uL (1.0-4.8) Monocytes # (Auto) 0.5 x10^3/uL (0.0-1.1) Eosinophils # (Auto) 0.0 x10^3/uL (0.0-0.7) Basophils # (Auto) 0.0 x10^3/uL (0.0-0.2) Prothrombin Time 13.0 SEC (11.7-14.0) Prothromb Time International Ratio 1.0 (0.8-1.1) Urine Collection Type Unknown Urine Color Yellow Urine Clarity Clear Urine pH 6.5 Urine Specific [place] 1.015 Urine Protein Negative mg/dL (NEG-TRACE) Urine Glucose (UA) Negative mg/dL (NEG) Urine Ketones (Stick) Negative mg/dL (NEG) Urine Blood Negative (NEG) Urine Nitrite Negative (NEG) Urine Bilirubin Negative (NEG) Urine Urobilinogen Dipstick 0.2 mg/dL (0.2 mg/dL) Urine Leukocyte Esterase Negative (NEG) Urine RBC 0 /HPF (0-2) Urine WBC Occ /HPF (0-4) Urine Squamous Epithelial Cells Occ /LPF Urine Bacteria 0 /HPF (0-FEW) Urine Mucus Slight /LPF Sodium Level 138 mmol/L (136-145) Potassium Level 4.0 mmol/L (3.5-5.1) Chloride Level 101 mmol/L (98-107) Carbon Dioxide Level 28 mmol/L (21-32) Anion Gap 9 (6-14) Blood Urea Nitrogen 21 mg/dL (8-26) Creatinine 1.1 mg/dL (0.7-1.3) Estimated GFR (Cockcroft-Gault) 65.3 BUN/Creatinine Ratio 19 (6-20) Glucose Level 102 mg/dL (70-99) Calcium Level 8.5 mg/dL (8.5-10.1) Total Bilirubin 0.5 mg/dL (0.2-1.0) Aspartate Amino Transf (AST/SGOT) 29 U/L (15-37) Alanine Aminotransferase (ALT/SGPT) 14 U/L (16-63) Alkaline Phosphatase 67 U/L (46-116) Troponin I Quantitative 0.074 ng/mL (0.000-0.055) 0.067 ng/mL (0.000-0.055) 0.074 ng/mL (0.000-0.055) UQ-Snt-Y-Type Natriuretic Peptide 3239 pg/mL (0-449) Total Protein 6.6 g/dL (6.4-8.2) Albumin 3.1 g/dL (3.4-5.0) Albumin/Globulin Ratio 0.9 (1.0-1.7) Lipase 228 U/L (73-393) VTE Prophylaxis Ordered VTE Prophylaxis Devices: Yes VTE Pharmacological Prophylaxi: Yes Assessment/Plan Assessment/Plan Elevated troponin �3, history known CAD Metabolic encephalopathy, resolved [facility] resident Elevated BNP of unknown clinical significance Full code Hypertension, controlled anxiety NOS Plan Consult cardiology Keep nothing by mouth for now until cardiology sees I have reconciled home meds Xanax prn BAck to HCR on dc [place] MD Nov 20, 2018 13:00
[2018-11-20] MEDS: MIDODRINE 2.5 MG TABLET PO SCH ×2 (13:48→17:25)
[2018-11-20] MEDS: ONDANSETRON ODT 4 MG TAB.RAPDIS. PO SCH ×2 (13:48→20:23)
[2018-11-20] MEDS ORDERED: MAGNESIUM CITRATE 296 ML SOLUTION. PO ONE (14:15)
[2018-11-20 15:00] VITALS: BP 116/64
--- NOTE | 2018-11-20 15:44 | NUR ---
SW following for discharge planning. SW contacted [facility], ; fax [phone], and verified that pt [facility] a [facility] from there facility and was able to return when medically stable for discharge. SW will continue to follow for discharge planning.
--- NOTE | 2018-11-20 18:39 | PDOC ---
PROGRESS NOTES Subjective Subjective 73 y/o male who was just discharged from [facility] after being workup up for CP has been readmitted from [facility] with dizziness, mild chest discomfort and nausea. He is not a very good historian but he denied any orthopnea/PND, palps, syncope. Objective Objective Vital Signs Date Time Temp Pulse Resp B/P (MAP) Pulse Ox O2 Delivery O2 Flow Rate FiO2 11/20/18 17:25 71 116/64 11/20/18 15:00 97.8 18 94 Room Air 97.8 Intake and Output 11/20/18 07:00 Intake Total 0 ml Balance 0 ml Intake Oral 0 ml Physical Exam Abdomen: Normal bowel sounds, Soft, No tenderness, No masses Extremities: No clubbing, No cyanosis, No edema, Normal pulses, No te nderness/swelling General: Alert, Oriented X3, Cooperative, No acute distress HEENT: Atraumatic, PERRLA, EOMI Lungs: Clear to auscultation, Normal air movement Neuro: Normal gait, Cranial nerves 3-12 NL, Reflexes 2+ Psych/Mental Status: Mental status NL, Mood NL Skin: No rashes, No significant lesion Assessment Assessment 1. CP with atypical features , non cardiac and most probably GI etiology. He has history of CAD s/p PCI/stent to RCA in past. Slight troponin level elevation appears to be chronic and demand mediated. Lexiscan nuclear stress test during recent hosp adm did not show any significant ischemia. No further cardiac workup is indicated at this time. 2. Dizziness: most probably vertigo and improved since admn 3. Nausea: per IM 4. Cardiac arrhythmias, history of PAT and high PVC burden failed follow up with EP 5. Chronic infrarenal abd aorta dissection: conservative management per vascular 6. HTN: controlled 7. HLP; statins Thank you for your consultation. We will follow up as needed. Plan Plan of Care Problems Medical Problems: (1) Dizziness Status: Acute (2) Elevated troponin Status: Acute Comment Review of Relevant I have reviewed the following items jensen (where applicable) has been applied. Labs Laboratory Tests Test 11/20/18 00:50 11/20/18 04:50 11/20/18 06:00 11/20/18 08:40 White Blood Count 5.1 x10^3/uL (4.0-11.0) Red Blood Count 4.08 x10^6/uL (4.30-5.70) Hemoglobin 12.1 g/dL (13.0-17.5) Hematocrit 36.4 % (39.0-53.0) Mean Corpuscular Volume 89 fL (79-100) Mean Corpuscular Hemoglobin 30 pg (25-35) Mean Corpuscular Hemoglobin Concent 33 g/dL (31-37) Red Cell Distribution Width 15.2 % (11.5-14.5) Platelet Count 147 x10^3/uL (140-400) Neutrophils (%) (Auto) 72 % (31-73) Lymphocytes (%) (Auto) 18 % (24-48) Monocytes (%) (Auto) 10 % (0-9) Eosinophils (%) (Auto) 0 % (0-3) Basophils (%) (Auto) 0 % (0-3) Neutrophils # (Auto) 3.7 x10^3/uL (1.8-7.7) Lymphocytes # (Auto) 0.9 x10^3/uL (1.0-4.8) Monocytes # (Auto) 0.5 x10^3/uL (0.0-1.1) Eosinophils # (Auto) 0.0 x10^3/uL (0.0-0.7) Basophils # (Auto) 0.0 x10^3/uL (0.0-0.2) Prothrombin Time 13.0 SEC (11.7-14.0) Prothromb Time International Ratio 1.0 (0.8-1.1) Urine Collection Type Unknown Urine Color Yellow Urine Clarity Clear Urine pH 6.5 Urine Specific [place] 1.015 Urine Protein Negative mg/dL (NEG-TRACE) Urine Glucose (UA) Negative mg/dL (NEG) Urine Ketones (Stick) Negative mg/dL (NEG) Urine Blood Negative (NEG) Urine Nitrite Negative (NEG) Urine Bilirubin Negative (NEG) Urine Urobilinogen Dipstick 0.2 mg/dL (0.2 mg/dL) Urine Leukocyte Esterase Negative (NEG) Urine RBC 0 /HPF (0-2) Urine WBC Occ /HPF (0-4) Urine Squamous Epithelial Cells Occ /LPF Urine Bacteria 0 /HPF (0-FEW) Urine Mucus Slight /LPF Sodium Level 138 mmol/L (136-145) Potassium Level 4.0 mmol/L (3.5-5.1) Chloride Level 101 mmol/L (98-107) Carbon Dioxide Level 28 mmol/L (21-32) Anion Gap 9 (6-14) Blood Urea Nitrogen 21 mg/dL (8-26) Creatinine 1.1 mg/dL (0.7-1.3) Estimated GFR (Cockcroft-Gault) 65.3 BUN/Creatinine Ratio 19 (6-20) Glucose Level 102 mg/dL (70-99) Calcium Level 8.5 mg/dL (8.5-10.1) Total Bilirubin 0.5 mg/dL (0.2-1.0) Aspartate Amino Transf (AST/SGOT) 29 U/L (15-37) Alanine Aminotransferase (ALT/SGPT) 14 U/L (16-63) Alkaline Phosphatase 67 U/L (46-116) Troponin I Quantitative 0.074 ng/mL (0.000-0.055) 0.067 ng/mL (0.000-0.055) 0.074 ng/mL (0.000-0.055) VJ-Whk-D-Type Natriuretic Peptide 3239 pg/mL (0-449) Total Protein 6.6 g/dL (6.4-8.2) Albumin 3.1 g/dL (3.4-5.0) Albumin/Globulin Ratio 0.9 (1.0-1.7) Lipase 228 U/L (73-393) Nasal Screen MRSA (PCR) Negative (Negative) Medications Current Medications Acetaminophen (Tylenol) 500 mg PRN Q6HRS PRN PO MILD PAIN / TEMP; Start 11/20/18 at 10:00 Alprazolam (Xanax) 0.25 mg PRN Q8HRS PRN PO ANXIETY / AGITATION; Start 11/20/18 at 10:00 Amiodarone HCl (Cordarone) 200 mg DAILY PO ; Start 11/20/18 at 10:30 Aspirin (Children'S Aspirin) 324 mg 1X ONCE PO Last administered on 11/20/18at 06:10; Start 11/20/18 at 06:00; Stop 11/20/18 at 06:01; Status DC Aspirin (Ecotrin) 81 mg DAILY PO Last administered on 11/20/18at 11:55; Start 11/20/18 at 10:30 Atorvastatin Calcium (Lipitor) 40 mg HS PO ; Start 11/20/18 at 21:00 Cyanocobalamin (Vitamin B-12) 1,000 mcg DAILY PO Last administered on 11/20/18 11:55; Start 11/20/18 at 10:30 Docusate Sodium (Colace) 100 mg BID PO Last administered on 11/20/18at 11:55; Start 11/20/18 at 10:30 Fentanyl Citrate (Fentanyl 2ml Vial) 50 mcg 1X ONCE IV Last administered on 11/20/18at 01:39; Start 11/20/18 at 00:00; Stop 11/20/18 at 00:03; Status DC Fludrocortisone Acetate (Florinef) 0.2 mg DAILY PO Last administered on 11/20/18 11:55; Start 11/20/18 at 10:30 Folic Acid (Folic Acid) 1 mg DAILY PO Last administered on 11/20/18 11:56; Start 11/20/18 at 10:30 Lidocaine (Lidoderm) 1 patch DAILY TD Last administered on 11/20/18at 11:54; Start 11/20/18 at 10:30 Lidocaine (Lidoderm) 1 patch DAILY TP ; Start 11/21/18 at 09:00; Status UNV Lorazepam (Ativan Inj) 1 mg 1X ONCE IV Last administered on 11/20/18at 01:40; Start 11/20/18 at 01:30; Stop 11/20/18 at 01:31; Status DC Magnesium Citrate (Citroma) 296 ml 1X ONCE PO Last administered on 11/20/18at 1 7:19; Start 11/20/18 at 14:15; Stop 11/20/18 at 14:16; Status DC Meclizine HCl (Antivert) 25 mg 1X ONCE PO Last administered on 11/20/18at 01:40; Start 11/20/18 at 00:00; Stop 11/20/18 at 00:03; Status DC Midodrine (Proamatine) 2.5 mg [id number] PO Last administered on 11/20/18at 17:25; Start 11/20/18 at 13:00 Miscellaneous (Lidoderm Patch Removal) 1 ea QHS MC ; Start 11/20/18 at 21:00 Morphine Sulfate (Morphine Sulfate) 2 mg PRN Q2HR PRN IV PAIN; Start 11/20/18 at 02:15; Stop 11/21/18 at 02:14 Non-Formulary Medication (Melatonin ) 5 mg HS PO ; Start 11/20/18 at 21:00; Status UNV Non-Formulary Medication (Tramadol Hcl ) 50 mg Q8HRS PRN PO PAIN; Start 11/20/18 at 10:00; Status UNV Ondansetron HCl (Zofran Odt) 4 mg Q8HRS PO Last administered on 11/20/18at 1 3:48; Start 11/20/18 at 14:00 Ondansetron HCl (Zofran) 4 mg 1X ONCE IV Last administered on 11/20/18at 01:39; Start 11/20/18 at 00:00; Stop 11/20/18 at 00:03; Status DC Ondansetron HCl (Zofran) 4 mg PRN Q6HRS PRN IV NAUSEA/VOMITING; Start 11/20/18 at 10:00 Ondansetron HCl (Zofran) 4 mg PRN Q8HRS PRN IV NAUSEA/VOMITING; Start 11/20/18 at 02:15; Stop 11/20/18 at 09:53; Status DC Pantoprazole Sodium (Protonix) 40 mg DAILYAC PO Last administered on 11/20/18at 11:55; Start 11/20/18 at 10:30 Polyethylene Glycol (miraLAX PACKET) 17 gm DAILY PO Last administered on 11/20/18at 11:55; Start 11/20/18 at 10:30 Pyridostigmine [place] (Mestinon) 30 mg QID PO Last administered on 11/20/18 17:25; Start 11/20/18 at 10:30 Pyridoxine HCl (Vitamin B-6) 25 mg BID PO Last administered on 11/20/18at 12:04; Start 11/20/18 at 10:30 Quetiapine Fumarate (SEROquel) 25 mg BID PO Last administered on 11/20/18 11:56; Start 11/20/18 at 10:30 Thiamine Mononitrate (Vitamin B-1) 100 mg DAILY PO Last administered on 11/20/18at 11:56; Start 11/20/18 at 10:30 Tramadol HCl (Ultram) 50 mg PRN Q6HRS PRN PO PAIN; Start 11/20/18 at 10:00 Vitals/I & O Vital Sign - Last 24 Hours 11/20/18 11/20/18 11/20/18 11/20/18 00:35 01:00 01:30 01:39 Temp 98.3 98.3 Pulse 92 72 74 Resp 24 18 16 22 B/P (MAP) 125/72 (89) Pulse Ox 92 96 96 O2 Delivery Room Air 11/20/18 11/20/18 11/20/18 11/20/18 02:00 02:30 03:00 03:00 Temp 97.6 97.6 Pulse 86 68 66 69 Resp 16 16 16 18 B/P (MAP) 139/70 (93) Pulse Ox 96 96 98 96 O2 Delivery Room Air 11/20/18 11/20/18 11/20/18 11/20/18 04:03 04:04 07:00 08:00 Temp 98.4 98.4 Pulse 64 Resp 18 B/P (MAP) 119/65 (83) Pulse Ox 92 94 O2 Delivery Room Air Room Air Room Air 11/20/18 11/20/18 11/20/18 11/20/18 10:30 11:00 11:00 11:00 Temp 98.3 98.3 Pulse 74 68 70 74 Resp 18 20 20 B/P (MAP) 99/62 123/68 (86) 102/64 (77) 99/62 (74) Pulse Ox 94 96 97 O2 Delivery Room Air Room Air 11/20/18 11/20/18 11/20/18 13:48 15:00 17:25 Temp 97.8 97.8 Pulse 74 71 71 Resp 18 B/P (MAP) 99/62 116/64 (81) 116/64 Pulse Ox 94 O2 Delivery Room Air Intake and Output 11/19/18 11/19/18 11/20/18 15:00 23:00 07:00 Intake Total 0 ml Balance 0 ml ELSIE TORRES MD Nov 20, 2018 18:39
[2018-11-20 19:40] VITALS: BP 125/73
[2018-11-20] MEDS: ALPRAZolam 0.25 MG TABLET PO PRN (20:23)
[2018-11-20] MEDS: ATORVASTATIN CALCIUM 40 MG TABLET. PO SCH (20:23)
[2018-11-20] MEDS: MORPHINE SULFATE 2 MG/ML VIAL. IV PRN (20:26)
[2018-11-20] MEDS ORDERED: NON FORMULARY ITEM (Melatonin 5 MG) PO SCH (21:00)
[2018-11-20] MEDS: PATCH REMOVAL. MC SCH (21:01)
[2018-11-20 23:52] VITALS: BP 118/63
[2018-11-21] VITALS (8 sets, daily range): BP systolic 93–135; BP diastolic 55–76
--- NOTE | 2018-11-21 01:41 | NUR ---
Reported off to Nedra NEVES.
[2018-11-21] MEDS: MORPHINE SULFATE 2 MG/ML VIAL. IV PRN (02:16)
[2018-11-21] MEDS: MIDODRINE 2.5 MG TABLET PO SCH ×3 (06:03→17:20)
[2018-11-21] MEDS: ONDANSETRON ODT 4 MG TAB.RAPDIS. PO SCH ×3 (06:03→21:48)
[2018-11-21] MEDS: POLYETHYLENE GLYCOL 3350 17 GM PACKET. PO SCH (09:00)
[2018-11-21] MEDS: LIDOCAINE (700MG/PATCH) PATCH. TD SCH ×2 (09:00→09:07)
[2018-11-21] MEDS ORDERED: LIDOCAINE (700MG/PATCH) PATCH. TP SCH (09:00)
[2018-11-21] MEDS: ASPIRIN ENTERIC COATED 81 MG TABLET.DR. PO SCH (09:06)
[2018-11-21] MEDS: PYRIDOSTIGMINE BROMIDE 60 MG TABLET PO SCH ×4 (09:06→21:48)
[2018-11-21] MEDS: FOLIC ACID 1 MG TABLET. PO SCH (09:06)
[2018-11-21] MEDS: THIAMINE 100 MG TABLET. PO SCH (09:06)
[2018-11-21] MEDS: FLUDROCORTISONE 0.1 MG TABLET PO SCH (09:06)
[2018-11-21] MEDS: DOCUSATE SODIUM 100 MG CAPSULE. PO SCH ×2 (09:06→21:48)
[2018-11-21] MEDS: PANTOPRAZOLE 40 MG TABLET.DR. PO SCH (09:06)
[2018-11-21] MEDS: CYANOCOBALAMIN (VITAMIN B-12) 1,000 MCG TABLET. PO SCH (09:06)
[2018-11-21] MEDS: QUEtiapine 25 MG TABLET. PO SCH ×2 (09:07→21:48)
[2018-11-21] MEDS: AMIODARONE HCL 200 MG TABLET. PO SCH (09:07)
[2018-11-21] MEDS: PYRIDOXINE 50 MG TABLET. PO SCH ×2 (09:12→21:48)
[2018-11-21] MEDS ORDERED: ALPR0.254 PO (09:28)
[2018-11-21] MEDS ORDERED: MECL25TA3 PO (09:28)
--- NOTE | 2018-11-21 09:29 | SNU/HH DC ---
DISCHARGE ORDERS DISCHARGE INFORMATION: DISCHARGE DATE: Nov 21, 2018 FINAL DIAGNOSIS Problems Medical Problems: (1) Dizziness Status: Acute (2) Elevated troponin Status: Acute CONDITION ON DISCHARGE: Stable PENITENTIARY: SNF STAY <30 DAYS: Yes HOSPICE: HOSPICE: No HOSPICE EVAL & TREAT: No LTAC: ADMIT TO LTAC: No POST DISCHARGE ORDERS: ACTIVITY ORDERS: Activity as tolerated WEIGHT BEARING STATUS: As tolerated DIET AFTER DISCHARGE: Cardiac WOUND/INCISION CARE: No wound care needed CHECKS AFTER DISCHARGE: CHECKS AFTER DISCHARGE: Check blood press - daily FOLLOW-UP: PHYSICIAN FOLLOW-UP: [facility] in 4 weeks routine checkup TREATMENT/EQUIPMENT ORDERS: ADAPTIVE EQUIPMENT NEEDED: None Physical Therapy For: Evalulation/Treatment Occupational Therapy For: Evaluation/Treatment Speech Language Pathology For: Evaluation/Treatment DISCHARGE MEDICATIONS: Home Meds Active Scripts Meclizine Hcl (MECLIZINE HCL) 25 Mg Tablet, 1 TAB PO TID for vertigo, #90 TAB Prov:NEW THOMSON MD 11/21/18 Alprazolam (ALPRAZOLAM) 0.25 Mg Tablet, 0.25 MG PO PRN Q8HRS PRN for ANXIETY / AGITATION, #60 TAB Prov:NEW THOMSON MD 11/21/18 Amiodarone Hcl (AMIODARONE HCL) 200 Mg Tablet, 200 MG PO DAILY for heart for 30 Days, #30 TAB Prov:DAQUAN TANG MD 09/22/18 Ondansetron (ONDANSETRON ODT) 4 Mg Tab.rapdis, 1 TAB PO PRN Q6-8HRS for VOMITING, #16 TAB Prov:ROSA MONTELONGO DO 08/09/18 Pantoprazole Sodium (PROTONIX ) 40 Mg Tablet.dr, 1 TAB PO DAILY, #30 TAB 5 Refills Prov:NEW THOMSON MD 10/20/16 Reported Medications Pyridostigmine [place] (PYRIDOSTIGMINE BROMIDE) 60 Mg Tablet, 30 MG PO QID for muacle relax, TAB 11/15/18 Lidocaine (Lidocaine PATCH ) 1 Each Adh..patch, 1 EACH TP DAILY for FOR LOCAL PAIN, PATCH REMOVE AFTER 12 HOURS 11/15/18 Tramadol Hcl (TRAMADOL HCL) 50 Mg Tablet, 50 MG PO Q8HRS PRN for PAIN, TAB 11/15/18 Thiamine Mononitrate (VITAMIN B-1) 100 Mg Tablet, 100 MG PO DAILY, TAB 11/15/18 Quetiapine Fumarate (SEROQUEL) 25 Mg Tablet, 25 MG PO BID, TAB 11/15/18 Pyridoxine Hcl (PYRIDOXINE HCL) 25 Mg Tablet, 25 MG PO BID, TAB 11/15/18 Polyethylene Glycol 3350 (MIRALAX) 17 Gm Powd.pack, 1 PACKET PO DAILY, #30 PACKET 3 Refills 11/15/18 Ondansetron Hcl (ZOFRAN) 4 Mg Tablet, 1 TAB PO Q8HRS, #30 TAB 11/15/18 Midodrine Hcl (MIDODRINE HCL) 2.5 Mg Tablet, 2.5 MG PO TID, TAB 11/15/18 Melatonin (MELATONIN) 3 Mg Tablet, 5 MG PO HS, TAB 11/15/18 Folic Acid (FOLIC ACID) 1 Mg Tablet, 1 TAB PO DAILY, #90 TAB 1 Refill 11/15/18 Fludrocortisone Acetate (FLUDROCORTISONE ACETATE) 0.1 Mg Tablet, 0.2 MG PO DAILY, TAB 11/15/18 Cyanocobalamin (Vitamin B-12) (VITAMIN B-12) 1,000 Mcg Tablet, 1000 MCG PO DAILY, TAB 11/15/18 Docusate Sodium (COLACE) 100 Mg Capsule, 1 CAP PO BID, #30 CAP 11/15/18 Atorvastatin Calcium (ATORVASTATIN CALCIUM) 40 Mg Tablet, 40 MG PO HS for FOR CHOLESTEROL, #30 TAB 0 Refills 11/15/18 Aspirin (ASPIR 81) 81 Mg Tablet., 81 MG PO DAILY for aspirin, TAB 03/05/14 NEW THOMSON MD Nov 21, 2018 09:29
--- NOTE | 2018-11-21 11:19 | PDOC3 ---
Discharge Summary Visit Information Date of Admission: Nov 20, 2018 Date of Discharge: Nov 21, 2018 Admitting Diagnosis Comment: anxiety NOS Vertigo-trial meclizine Chest pain with atypical features, full cardiac workup already done chest pain, atypical PAT PVCs failed follow up with EP Hypertension, controlled Orthostatic hypotension Dyslipidemia on statin Final Diagnosis Problems Medical Problems: (1) Dizziness Status: Acute (2) Elevated troponin Status: Acute Brief Hospital Course Allergies Allergies Coded Allergies Type Severity Reaction Last Updated Verified Penicillins Allergy Unknown PATIENT DOES NOT REMEMBER 11/15/18 Yes hydrocodone Adverse Reaction Intermediate Nausea 11/15/18 Yes Vital Signs Vital Signs Date Time Temp Pulse Resp B/P (MAP) Pulse Ox O2 Delivery O2 Flow Rate FiO2 11/21/18 10:32 73 94/55 (68) 11/21/18 07:58 97.9 16 92 Room Air 97.9 Lab Results Laboratory Tests Test 11/20/18 00:50 11/20/18 04:50 11/20/18 06:00 11/20/18 08:40 White Blood Count 5.1 x10^3/uL (4.0-11.0) Red Blood Count 4.08 x10^6/uL (4.30-5.70) Hemoglobin 12.1 g/dL (13.0-17.5) Hematocrit 36.4 % (39.0-53.0) Mean Corpuscular Volume 89 fL (79-100) Mean Corpuscular Hemoglobin 30 pg (25-35) Mean Corpuscular Hemoglobin Concent 33 g/dL (31-37) Red Cell Distribution Width 15.2 % (11.5-14.5) Platelet Count 147 x10^3/uL (140-400) Neutrophils (%) (Auto) 72 % (31-73) Lymphocytes (%) (Auto) 18 % (24-48) Monocytes (%) (Auto) 10 % (0-9) Eosinophils (%) (Auto) 0 % (0-3) Basophils (%) (Auto) 0 % (0-3) Neutrophils # (Auto) 3.7 x10^3/uL (1.8-7.7) Lymphocytes # (Auto) 0.9 x10^3/uL (1.0-4.8) Monocytes # (Auto) 0.5 x10^3/uL (0.0-1.1) Eosinophils # (Auto) 0.0 x10^3/uL (0.0-0.7) Basophils # (Auto) 0.0 x10^3/uL (0.0-0.2) Prothrombin Time 13.0 SEC (11.7-14.0) Prothromb Time International Ratio 1.0 (0.8-1.1) Urine Collection Type Unknown Urine Color Yellow Urine Clarity Clear Urine pH 6.5 Urine Specific [place] 1.015 Urine Protein Negative mg/dL (NEG-TRACE) Urine Glucose (UA) Negative mg/dL (NEG) Urine Ketones (Stick) Negative mg/dL (NEG) Urine Blood Negative (NEG) Urine Nitrite Negative (NEG) Urine Bilirubin Negative (NEG) Urine Urobilinogen Dipstick 0.2 mg/dL (0.2 mg/dL) Urine Leukocyte Esterase Negative (NEG) Urine RBC 0 /HPF (0-2) Urine WBC Occ /HPF (0-4) Urine Squamous Epithelial Cells Occ /LPF Urine Bacteria 0 /HPF (0-FEW) Urine Mucus Slight /LPF Sodium Level 138 mmol/L (136-145) Potassium Level 4.0 mmol/L (3.5-5.1) Chloride Level 101 mmol/L (98-107) Carbon Dioxide Level 28 mmol/L (21-32) Anion Gap 9 (6-14) Blood Urea Nitrogen 21 mg/dL (8-26) Creatinine 1.1 mg/dL (0.7-1.3) Estimated GFR (Cockcroft-Gault) 65.3 BUN/Creatinine Ratio 19 (6-20) Glucose Level 102 mg/dL (70-99) Calcium Level 8.5 mg/dL (8.5-10.1) Total Bilirubin 0.5 mg/dL (0.2-1.0) Aspartate Amino Transf (AST/SGOT) 29 U/L (15-37) Alanine Aminotransferase (ALT/SGPT) 14 U/L (16-63) Alkaline Phosphatase 67 U/L (46-116) Troponin I Quantitative 0.074 ng/mL (0.000-0.055) 0.067 ng/mL (0.000-0.055) 0.074 ng/mL (0.000-0.055) UD-Yqt-C-Type Natriuretic Peptide 3239 pg/mL (0-449) Total Protein 6.6 g/dL (6.4-8.2) Albumin 3.1 g/dL (3.4-5.0) Albumin/Globulin Ratio 0.9 (1.0-1.7) Lipase 228 U/L (73-393) Nasal Screen MRSA (PCR) Negative (Negative) Brief Hospital Course Mr. Hobbs is a 73 old white male who came from [facility], admitted because of dizziness, orthostatic hypotension proven subjectively and objectively, symptomatic. I ordered abdominal binder. He has history of CAD and cardiology is on board. CArds had no Further recommendations - already on the right medications for a CAD patient. Very anxious, I was in the room may be at least 40 minutes alone, he had lots of questions about blood pressure, orthostatic, cardiac meds etc. He did not want to [facility] to [facility]. Wanted to go back home health. DP OA, caregiver at bedside. Patient is a full code. DP OA understands. Patient seems not to be or at least very anxious worried about med side effects etc. After multiple visits today, agreeable to go back to [facility], has 20 days alotted there are and that's where we are sending him back Discharge disposition [facility] Full code No change in home meds, give cardiac meds watching out for orthostatic hypotension Abdominal binder, trial of meclizine all on chart Discharge Information Condition at Discharge: Improved, Stable Disposition/Orders: Other (snu) Scheduled Amiodarone Hcl (Amiodarone Hcl) 200 Mg Tablet, 200 MG PO DAILY for heart for 30 Days, #30 Prescribed by: DAQUAN TANG MD on 09/22/18 1439 Last Action: Continued on 11/20/18951 by NEW THOMSON Aspirin (Aspir 81) 81 Mg Tablet., 81 MG PO DAILY for aspirin, (Reported) Entered as Reported by: ROWAN MEZA on 03/05/14 0049 Last Action: Continued on 11/20/18951 by NEW THOMSON Atorvastatin Calcium (Atorvastatin Calcium) 40 Mg Tablet, 40 MG PO HS for FOR CHOLESTEROL, #30 Ref 0 (Reported) Entered as Reported by: AVA NOONAN on 11/15/18 0838 Last Action: Continued on 11/20/18951 by NEW THOMSON Cyanocobalamin (Vitamin B-12) (Vitamin B-12) 1,000 Mcg Tablet, 1,000 MCG PO DAILY, (Reported) Entered as Reported by: AVA NOONAN on 11/15/18837 Last Action: Continued on 11/20/18951 by NEW THOMSON Docusate Sodium (Colace) 100 Mg Capsule, 1 CAP PO BID, #30 (Reported) Entered as Reported by: AVA NOONAN on 11/15/18837 Last Action: Continued on 11/20/18951 by NEW THOMSON Fludrocortisone Acetate (Fludrocortisone Acetate) 0.1 Mg Tablet, 0.2 MG PO DAILY, (Reported) Entered as Reported by: AVA NOONAN on 11/15/18837 Last Action: Continued on 11/20/18951 by NEW THOMSON Folic Acid (Folic Acid) 1 Mg Tablet, 1 TAB PO DAILY, #90 Ref 1 (Reported) Entered as Reported by: AVA NOONAN on 11/15/18837 Last Action: Continued on 11/20/18951 by NEW THOMSON Lidocaine (Lidocaine PATCH ) 1 Each Adh..patch, 1 EACH TP DAILY for FOR LOCAL PAIN, (Reported) REMOVE AFTER 12 HOURS Entered as Reported by: AVA NOONAN on 11/15/18837 Last Action: Continued on 11/20/18951 by NEW THOMSON Meclizine Hcl (Meclizine Hcl) 25 Mg Tablet, 1 TAB PO TID for vertigo, #90 Prescribed by: NEW THOMSON on 11/21/18927 Melatonin (Melatonin) 3 Mg Tablet, 5 MG PO HS, (Reported) Entered as Reported by: AVA NOONAN on 11/15/18837 Last Action: Converted on 11/20/18951 by NEW THOMSON Midodrine Hcl (Midodrine Hcl) 2.5 Mg Tablet, 2.5 MG PO TID, (Reported) Entered as Reported by: AVA NOONAN on 11/15/18837 Last Action: Converted on 11/20/18951 by NEW THOMSON Ondansetron (Ondansetron Odt) 4 Mg Tab.rapdis, 1 TAB PO PRN Q6-8HRS for VOMITING, #16 Prescribed by: ROSA MONTELONGO D.O. on 08/09/18 0430 Last Action: Reviewed on 11/20/18951 by NEW THOMSON Pantoprazole Sodium (Protonix ) 40 Mg Tablet.dr, 1 TAB PO DAILY, #30 Ref 5 Prescribed by: NEW THOMSON on 10/20/16 1222 Last Action: Continued on 11/20/18951 by NEW THOMSON Polyethylene Glycol 3350 (Miralax) 17 Gm Powd.pack, 1 PACKET PO DAILY, #30 Ref 3 (Reported) Entered as Reported by: AVA NOONAN on 11/15/18837 Last Action: Converted on 11/20/18951 by NEW THOMSON Pyridostigmine [place] (Pyridostigmine [place]) 60 Mg Tablet, 30 MG PO QID for muacle relax, (Reported) Entered as Reported by: SUSANA HERNANDEZ on 11/15/18 120 Last Action: Converted on 11/20/18951 by NEW THOMSON Pyridoxine Hcl (Pyridoxine Hcl) 25 Mg Tablet, 25 MG PO BID, (Reported) Entered as Reported by: AVA NOONAN on 11/15/18837 Last Action: Converted on 11/20/18951 by NEW THOMSON Quetiapine Fumarate (Seroquel) 25 Mg Tablet, 25 MG PO BID, (Reported) Entered as Reported by: AVA NOONAN on 11/15/18837 Last Action: Converted on 11/20/18951 by NEW THOMSON Thiamine Mononitrate (Vitamin B-1) 100 Mg Tablet, 100 MG PO DAILY, (Reported) Entered as Reported by: AVA NOONAN on 11/15/18837 Last Action: Converted on 11/20/18951 by NEW THOMSON Scheduled PRN Alprazolam (Alprazolam) 0.25 Mg Tablet, 0.25 MG PO PRN Q8HRS PRN for ANXIETY / AGITATION, #60 Prescribed by: NEW THOMSON on 11/21/18927 Tramadol Hcl (Tramadol Hcl) 50 Mg Tablet, 50 MG PO Q8HRS PRN for PAIN, (Reported) Entered as Reported by: AVA NOONAN on 11/15/18837 Last Action: Converted on 11/20/18951 by NEW THOMSON Discontinued Medications Ondansetron Hcl (Zofran) 4 Mg Tablet, 1 TAB PO Q8HRS, #30 (Reported) Entered as Reported by: AVA NOONAN on 11/15/18837 Last Action: Converted on 11/20/18951 by NEW CUEVAS MD Nov 21, 2018 11:19
--- NOTE | 2018-11-21 12:22 | NUR ---
SW following pt. Orders faxed to [facility] and pt will transport via [facility] arranged transport at 1300. Pt agreeable with plan. Discussed with RN.
[2018-11-21] MEDS: ALPRAZolam 0.25 MG TABLET PO PRN (13:42)
[2018-11-21] MEDS ORDERED: ALPRAZolam 0.5 MG TABLET PO ONE (13:45)
--- NOTE | 2018-11-21 13:48 | NUR ---
While this RN was at lunch, patient came to the nurses station and told staff he was light headed and having chest pain. Staff called rapid response and came and got me. As this seems to be a frequent occurrence for patient, I cancelled RR. Did notify Phan, who said to go ahead and recheck cardiac labs and do EKG. Text page sent to Dr. Taylor to update her, she placed order for 1x dose of Xanax. I educated patient on light headedness and the possibility of this being related to his orthostatic hypotension. I notified [facility] who postponed his transportation until 1520. Will continue to monitor.
--- NOTE | 2018-11-21 14:26 | RAD ---
CHEST AP ONLY Clinical Indication: Chest pain Comparison: AP chest, prior day. Findings: The cardiomediastinal silhouette is stable. Left basilar airspace disease is mostly resolved. There is no pneumothorax. No pleural effusion is appreciated. No acute bone abnormality. IMPRESSION: Left basilar airspace disease is mostly resolved. Electronically signed by: Hemal Metz MD (11/21/2018 2:23 PM) [id number]
--- NOTE | 2018-11-21 15:08 | PDOC ---
Provider Note Provider Note Called by RN few hours ago for complaints of pt having chest pain EKG trops ordered by cardiology THen few hours later called by RN because patient is complaining of right-sided facial numbness etc Plan: hold discharge, consult neurology Doubt he is having a stroke I did order Xanax when necessary first dose now Lots of time with this patient today NEW THOMSON MD Nov 21, 2018 15:08
--- NOTE | 2018-11-21 15:20 | NUR ---
Patient began complaining of R eye blurriness, R arm weakness, and saying he felt like "the L side of my face is drooping". Smile is symmetrical, face is symmetrical when sleeping but there is a slight L eyebrow droop when patient wakes up. Relayed this to Dr. Taylor, will consult Dr. Bernardo for these symptoms.
[2018-11-21 15:29] LABS: BASO % 0 % (0-3); EOS % 1 % (0-3); HEMATOCRIT 33.5 % (39.0-53.0); HEMOGLOBIN 11.4 g/dL (13.0-17.5); LYMPH # 0.7 x10^3/uL (1.0-4.8); LYMPH % 16 % (24-48); MEAN CORPUSCULAR HEMOGLOBIN 30 pg (25-35); MEAN CORPUSCULAR HGB CONC 34 g/dL (31-37); MEAN CORPUSCULAR VOLUME 89 fL (79-100); MONO # 0.5 x10^3/uL (0.0-1.1); MONO % 12 % (0-9); NEUT # 3.1 x10^3/uL (1.8-7.7); NEUT % 70 % (31-73); PLATELET COUNT 129 x10^3/uL (140-400); RED BLOOD COUNT 3.77 x10^6/uL (4.30-5.70); RED CELL DISTRIBUTION WIDTH 14.9 % (11.5-14.5); WHITE BLOOD COUNT 4.4 x10^3/uL (4.0-11.0)
[2018-11-21 16:14] LABS: MAGNESIUM 2.2 mg/dL (1.8-2.4); POTASSIUM 3.4 mmol/L (3.5-5.1)
[2018-11-21] MEDS: traMADol 50 MG TABLET PO PRN (17:20)
--- NOTE | 2018-11-21 17:23 | NUR ---
R hand, the one patient unable to use per his self report, was being used to masturbate when this RN entered the room at 1715. Patient now saying he thinks he has a UTI and thinks his penis is irritated. I recommend leaving this region alone and giving it some rest.
[2018-11-21] MEDS ORDERED: POTASSIUM CHLORIDE 20 MEQ TABLET.ER. PO ONE (17:30)
[2018-11-21] MEDS: PATCH REMOVAL. MC SCH (21:00)
[2018-11-21] MEDS: ATORVASTATIN CALCIUM 40 MG TABLET. PO SCH (21:48)
[2018-11-22] MEDS ORDERED: SODIUM PHOSPHATES 19/7GM 133 ML ENEMA. PR PRN (01:00)
[2018-11-22] MEDS ORDERED: BISACODYL 10 MG SUPP.RECT. PR PRN (01:00)
[2018-11-22 03:04] VITALS: BP 131/78
[2018-11-22] MEDS: ALPRAZolam 0.25 MG TABLET PO PRN (03:44)
[2018-11-22 06:00] LABS: CHOLESTEROL/HDL RATIO 2.2
[2018-11-22] MEDS: ONDANSETRON ODT 4 MG TAB.RAPDIS. PO SCH ×2 (06:00→12:53)
[2018-11-22 07:00] VITALS: BP 110/56
[2018-11-22] MEDS: POLYETHYLENE GLYCOL 3350 17 GM PACKET. PO SCH (08:22)
[2018-11-22] MEDS: FLUDROCORTISONE 0.1 MG TABLET PO SCH (08:23)
[2018-11-22] MEDS: ASPIRIN ENTERIC COATED 81 MG TABLET.DR. PO SCH (08:23)
[2018-11-22] MEDS: PYRIDOSTIGMINE BROMIDE 60 MG TABLET PO SCH ×2 (08:23→12:53)
[2018-11-22] MEDS: MIDODRINE 2.5 MG TABLET PO SCH ×2 (08:23→12:53)
[2018-11-22] MEDS: CYANOCOBALAMIN (VITAMIN B-12) 1,000 MCG TABLET. PO SCH (08:23)
[2018-11-22] MEDS: PANTOPRAZOLE 40 MG TABLET.DR. PO SCH (08:23)
[2018-11-22] MEDS: AMIODARONE HCL 200 MG TABLET. PO SCH (08:24)
[2018-11-22] MEDS: FOLIC ACID 1 MG TABLET. PO SCH (08:24)
[2018-11-22] MEDS: DOCUSATE SODIUM 100 MG CAPSULE. PO SCH (08:24)
[2018-11-22] MEDS: QUEtiapine 25 MG TABLET. PO SCH (08:24)
[2018-11-22] MEDS: THIAMINE 100 MG TABLET. PO SCH (08:24)
[2018-11-22] MEDS: PYRIDOXINE 50 MG TABLET. PO SCH (08:26)
[2018-11-22] MEDS: LIDOCAINE (700MG/PATCH) PATCH. TD SCH (08:26)
--- NOTE | 2018-11-22 10:02 | RAD ---
EXAMINATION: Magnetic resonance imaging (MRI) of the brain and brainstem without contrast 11/22/2018 3:26 PM HISTORY: Left facial droop with right arm weakness and blurred vision. TECHNIQUE: Multiplanar multi-weighted MRI of the brain and brainstem was performed without intravenous contrast using the general brain protocol. COMPARISON: CT head November 19, 2018 FINDINGS: The scalp and calvarium are normal. The superior sagittal sinus demonstrates normal venous flow. The corpus callosum is normal in shape and signal intensity. The posterior fossa is unremarkable. The pituitary and sella are normal. The brainstem and craniocervical junction are unremarkable.. There are T2/FLAIR signal hyperintense foci in the periventricular and subcortical white matter most suggestive of mild chronic small vessel ischemic changes. Diffusion weighted images reveal no hyperintensities to suggest acute cerebral infarction. The susceptibility weighted sequences reveal no evidence of acute or chronic hemorrhage. Ventricles, sulci and basal cisterns are prominent compatible with mild generalized cerebral volume loss The paranasal sinuses are normal. The visualized portions of the mastoids are unremarkable. The orbits appear normal. Normal flow voids are demonstrated in the carotid arteries and basilar artery. IMPRESSION: No evidence for acute or subacute ischemia. There are T2/FLAIR signal hyperintense foci in the periventricular and subcortical white matter most suggestive of mild chronic small vessel ischemic changes. Electronically signed by: Lashon Martinez MD (11/22/2018 9:59 AM) [id number]
--- NOTE | 2018-11-22 10:52 | NUR ---
SS following up with discharge planning. Discharge orders received. Pt's RN stated pt is stable and ready for discharge. SS phoned and faxed discharge orders to [facility], ; fax [phone]. [facility] discharge today [facility] to provide transportation. Pt and pt's RN notified.
[2018-11-22 11:00] VITALS: BP 105/67
--- NOTE | 2018-11-22 11:18 | NUR ---
SS following up with discharge planning. [facility] reported that pt will be transported at 1600. Pt's RN notified.
--- NOTE | 2018-11-22 11:42 | PDOC3 ---
Discharge Summary Visit Information Date of Admission: Nov 20, 2018 Date of Discharge: Nov 22, 2018 Admitting Diagnosis Comment: Anxiety NOS Hypochondriac? Vertigo-trial meclizine Chest pain with atypical features, full cardiac workup already done chest pain, atypical PAT PVCs failed follow up with EP Hypertension, controlled Orthostatic hypotension Dyslipidemia on statin RT facial tingling numbness normal MRI Final Diagnosis Problems Medical Problems: (1) Dizziness Status: Acute (2) Elevated troponin Status: Acute Brief Hospital Course Allergies Allergies Coded Allergies Type Severity Reaction Last Updated Verified Penicillins Allergy Unknown PATIENT DOES NOT REMEMBER 11/15/18 Yes hydrocodone Adverse Reaction Intermediate Nausea 11/15/18 Yes Vital Signs Vital Signs Date Time Temp Pulse Resp B/P (MAP) Pulse Ox O2 Delivery O2 Flow Rate FiO2 11/22/18 08:24 62 131/78 11/22/18 07:00 98.1 18 95 Room Air 98.1 Lab Results Laboratory Tests Test 11/21/18 14:05 11/22/18 04:50 White Blood Count 4.4 x10^3/uL (4.0-11.0) Red Blood Count 3.77 x10^6/uL (4.30-5.70) Hemoglobin 11.4 g/dL (13.0-17.5) Hematocrit 33.5 % (39.0-53.0) Mean Corpuscular Volume 89 fL (79-100) Mean Corpuscular Hemoglobin 30 pg (25-35) Mean Corpuscular Hemoglobin Concent 34 g/dL (31-37) Red Cell Distribution Width 14.9 % (11.5-14.5) Platelet Count 129 x10^3/uL (140-400) Neutrophils (%) (Auto) 70 % (31-73) Lymphocytes (%) (Auto) 16 % (24-48) Monocytes (%) (Auto) 12 % (0-9) Eosinophils (%) (Auto) 1 % (0-3) Basophils (%) (Auto) 0 % (0-3) Neutrophils # (Auto) 3.1 x10^3/uL (1.8-7.7) Lymphocytes # (Auto) 0.7 x10^3/uL (1.0-4.8) Monocytes # (Auto) 0.5 x10^3/uL (0.0-1.1) Eosinophils # (Auto) 0.0 x10^3/uL (0.0-0.7) Basophils # (Auto) 0.0 x10^3/uL (0.0-0.2) Potassium Level 3.4 mmol/L (3.5-5.1) Magnesium Level 2.2 mg/dL (1.8-2.4) Troponin I Quantitative 0.053 ng/mL (0.000-0.055) Vitamin B12 Level 701 pg/mL (247-911) Thyroid Stimulating Hormone (TSH) 1.029 uIU/mL (0.358-3.74) Triglycerides Level 100 mg/dL (0-150) Cholesterol Level 110 mg/dL (0-200) LDL Cholesterol, Calculated 39 mg/dL (0-100) VLDL Cholesterol, Calculated 20 mg/dL (0-40) Non-HDL Cholesterol Calculated 59 mg/dL (0-129) HDL Cholesterol 51 mg/dL (40-60) Cholesterol/HDL Ratio 2.2 Laboratory Tests Test 11/21/18 14:05 11/22/18 04:50 White Blood Count 4.4 x10^3/uL (4.0-11.0) Red Blood Count 3.77 x10^6/uL (4.30-5.70) Hemoglobin 11.4 g/dL (13.0-17.5) Hematocrit 33.5 % (39.0-53.0) Mean Corpuscular Volume 89 fL (79-100) Mean Corpuscular Hemoglobin 30 pg (25-35) Mean Corpuscular Hemoglobin Concent 34 g/dL (31-37) Red Cell Distribution Width 14.9 % (11.5-14.5) Platelet Count 129 x10^3/uL (140-400) Neutrophils (%) (Auto) 70 % (31-73) Lymphocytes (%) (Auto) 16 % (24-48) Monocytes (%) (Auto) 12 % (0-9) Eosinophils (%) (Auto) 1 % (0-3) Basophils (%) (Auto) 0 % (0-3) Neutrophils # (Auto) 3.1 x10^3/uL (1.8-7.7) Lymphocytes # (Auto) 0.7 x10^3/uL (1.0-4.8) Monocytes # (Auto) 0.5 x10^3/uL (0.0-1.1) Eosinophils # (Auto) 0.0 x10^3/uL (0.0-0.7) Basophils # (Auto) 0.0 x10^3/uL (0.0-0.2) Potassium Level 3.4 mmol/L (3.5-5.1) Magnesium Level 2.2 mg/dL (1.8-2.4) Troponin I Quantitative 0.053 ng/mL (0.000-0.055) Vitamin B12 Level 701 pg/mL (247-911) Thyroid Stimulating Hormone (TSH) 1.029 uIU/mL (0.358-3.74) Triglycerides Level 100 mg/dL (0-150) Cholesterol Level 110 mg/dL (0-200) LDL Cholesterol, Calculated 39 mg/dL (0-100) VLDL Cholesterol, Calculated 20 mg/dL (0-40) Non-HDL Cholesterol Calculated 59 mg/dL (0-129) HDL Cholesterol 51 mg/dL (40-60) Cholesterol/HDL Ratio 2.2 Brief Hospital Course THis is an Addendum to discharge summary done yesterday 11/21/2018 Discharge was halted because patient was complaining of chest pain, stat EKG tr oponin chest x-ray was done. Chest x-ray x-ray shows resolution of the left- sided infiltrate Then later that same day he complained of right-sided tingling numbness, facial, neurology got involved. MRI of the brain is normal. I think patient is a hypochondriac, I had a long visit again today, he had lots of questions now questioning hypokalemia which we have fixed [facility], anxiety meds/Xanax on file. No change in meds. He is on the right cardiac meds he does have CAD with stents. Attempt to educate again this patient. Night rn note reviewed-was masturbating last night in room- Discharge Information Condition at Discharge: Improved, Stable Disposition/Orders: Other (snu) Scheduled Amiodarone Hcl (Amiodarone Hcl) 200 Mg Tablet, 200 MG PO DAILY for heart for 30 Days, #30 Prescribed by: DAQUAN TANG MD on 09/22/18 0431 Last Action: Continued on 7/951 by NEW THOMSON Aspirin (Aspir 81) 81 Mg Tablet.dr, 81 MG PO DAILY for aspirin, (Reported) Entered as Reported by: ROWAN MEZA on 03/05/1448 Last Action: Continued on 11/20/18951 by NEW THOMSON Atorvastatin Calcium (Atorvastatin Calcium) 40 Mg Tablet, 40 MG PO HS for FOR CHOLESTEROL, #30 Ref 0 (Reported) Entered as Reported by: AVA NOONAN on 11/15/18837 Last Action: Continued on 11/20/18951 by NEW THOMSON Cyanocobalamin (Vitamin B-12) (Vitamin B-12) 1,000 Mcg Tablet, 1,000 MCG PO DAILY, (Reported) Entered as Reported by: AVA NOONAN on 11/15/18837 Last Action: Continued on 11/20/18951 by NWE THOMSON Docusate Sodium (Colace) 100 Mg Capsule, 1 CAP PO BID, #30 (Reported) Entered as Reported by: AAV NOONAN on 11/15/18837 Last Action: Continued on 11/20/18951 by NEW THOMSON Fludrocortisone Acetate (Fludrocortisone Acetate) 0.1 Mg Tablet, 0.2 MG PO DAILY, (Reported) Entered as Reported by: AVA NOONAN on 11/15/18837 Last Action: Continued on 11/20/18951 by NEW THOMSON Folic Acid (Folic Acid) 1 Mg Tablet, 1 TAB PO DAILY, #90 Ref 1 (Reported) Entered as Reported by: AVA NOONAN on 11/15/18837 Last Action: Continued on 11/20/18951 by NEW THOMSON Lidocaine (Lidocaine PATCH ) 1 Each Adh..patch, 1 EACH TP DAILY for FOR LOCAL PAIN, (Reported) REMOVE AFTER 12 HOURS Entered as Reported by: AVA NOONAN on 11/15/18837 Last Action: Continued on 11/20/18951 by NEW THOMSON Meclizine Hcl (Meclizine Hcl) 25 Mg Tablet, 1 TAB PO TID for vertigo, #90 Prescribed by: NEW THOMSON on 11/21/18927 Melatonin (Melatonin) 3 Mg Tablet, 5 MG PO HS, (Reported) Entered as Reported by: AVA NOONAN on 11/15/18837 Last Action: Converted on 11/20/18951 by NEW THOMSON Midodrine Hcl (Midodrine Hcl) 2.5 Mg Tablet, 2.5 MG PO TID, (Reported) Entered as Reported by: AVA NOONAN on 11/15/18837 Last Action: Converted on 11/20/18951 by NEW THOMSON Ondansetron (Ondansetron Odt) 4 Mg Tab.rapdis, 1 TAB PO PRN Q6-8HRS for VOMITING, #16 Prescribed by: ROSA MONTELONGO D.O. on 08/09/18 043 Last Action: Reviewed on 11/20/18951 by NEW THOMSON Pantoprazole Sodium (Protonix ) 40 Mg Tablet.dr, 1 TAB PO DAILY, #30 Ref 5 Prescribed by: NEW THOMSON on 10/20/16 1222 Last Action: Continued on 11/20/18951 by NEW THOMSON Polyethylene Glycol 3350 (Miralax) 17 Gm Powd.pack, 1 PACKET PO DAILY, #30 Ref 3 (Reported) Entered as Reported by: AVA NOONAN on 11/15/18837 Last Action: Converted on 11/20/18951 by NEW THOMSON Pyridostigmine [place] (Pyridostigmine [place]) 60 Mg Tablet, 30 MG PO QID for muacle relax, (Reported) Entered as Reported by: SUSANA HERNANDEZ on 11/15/18 120 Last Action: Converted on 11/20/18951 by NEW THOMSON Pyridoxine Hcl (Pyridoxine Hcl) 25 Mg Tablet, 25 MG PO BID, (Reported) Entered as Reported by: AVA NOONAN on 11/15/18837 Last Action: Converted on 11/20/18951 by NEW THOMSON Quetiapine Fumarate (Seroquel) 25 Mg Tablet, 25 MG PO BID, (Reported) Entered as Reported by: AVA NOONAN on 11/15/18837 Last Action: Converted on 11/20/18951 by NEW THOMSON Thiamine Mononitrate (Vitamin B-1) 100 Mg Tablet, 100 MG PO DAILY, (Reported) Entered as Reported by: AVA NOONAN on 11/15/18837 Last Action: Converted on 11/20/18951 by NEW THOMSON Scheduled PRN Alprazolam (Alprazolam) 0.25 Mg Tablet, 0.25 MG PO PRN Q8HRS PRN for ANXIETY / AGITATION, #60 Prescribed by: NEW THOMSON on 11/21/18927 Tramadol Hcl (Tramadol Hcl) 50 Mg Tablet, 50 MG PO Q8HRS PRN for PAIN, (Reported) Entered as Reported by: AVA NOONAN on 11/15/18837 Last Action: Converted on 11/20/18951 by NEW THOMSON Discontinued Medications Ondansetron Hcl (Zofran) 4 Mg Tablet, 1 TAB PO Q8HRS, #30 (Reported) Entered as Reported by: AVA NOONAN on 11/15/18837 Last Action: Converted on 11/20/18951 by NEW CUEVAS MD Nov 22, 2018 11:42
[2018-11-22 12:53] VITALS: BP 131/78
[2018-11-22] MEDS ORDERED: LIDO:MAALOX 1:1 20 ML SINGLE DOSE. SWSW ONE (14:30)
[2018-11-22] MEDS: traMADol 50 MG TABLET PO PRN (15:32)
--- NOTE | 2018-11-22 16:05 | NUR ---
Discharge Note: DONALD DELONG [address] [place] [address] Discharge instructions and discharge home medications reviewed with Garrett at [facility] and a copy given. All questions have been answered and understanding verbalized. Discontinued lines and drains: Peripheral IV intact. [facility] with [facility] personnel via Wheelchair.
--- NOTE | 2018-11-22 16:34 | PDOC2 ---
NEUROLOGY CONSULT Date of Admission Date of Admission DATE: 11/22/18 TIME: 16:21 Reason for Consult Reason for Consult: IMPRESSION: Chest heaviness. Right side facial drooping. Right eye blurred vision. Dizziness. CAD. Anxiety features. No evidence of acute CVA this time. RECOMMENDATIONS/PLAN: Continue ASA daily. Continue Lipitor HS. FU with PCP. HISTORY OF THE PRESENT ILLNESS: This is a 73-y-old male patient who came to the ER of [facility] with compliant of dizziness, chest heaviness, right side facial drooping, and right eye vision blurring, dizziness on 11/21/18 with out known time of onset of his symptoms. He was hospitalized for further evaluation. neurology was requested for consultation for stroke evaluation. No focalized motor or sensory deficits noted. Past Medical History Cardiovascular: CAD, CHF, Other Pulmonary: No pertinent hx CENTRAL NERVOUS SYSTEM: Other GI: Constipation, GERD, Other Heme/Onc: No pertinent hx Hepatobiliary: Cirrhosis Psych: No pertinent hx Musculoskeletal: low back pain, Osteoarthritis Infectious disease: No pertinent hx Renal/: Benign prostatic enlarg., Other Endocrine: No pertinent hx Past Surgical History Hernia Repair, Tonsillectomy, Colon Resection. Family History Coronary Artery Disease, Hypertension Allergies Coded Allergies: Penicillins (Verified Allergy, Unknown, PATIENT DOES NOT REMEMBER, 11/15/18) hydrocodone (Verified Adverse Reaction, Intermediate, Nausea, 11/15/18) Pt stated this morning that Hydrocodone makes him sick to his stomach, even when given with food MEDICATIONS: Refer to [facility] SOCIAL HISTORY: Denies current smoking, drinking, and illicit drug use. REVIEW OF SYSTEMS: Constitutional: No malnutrition, weight loss, cachexia. Head: No traumatic brain or head injury. Skin: No edema, or rash. Ear: No infection. Eyes: No vision loss or color blindness. Nose: No bleeding or purulent discharges. Hearing: Hearing decrease. Neck: No injury. Cardiac: CAD, HLD. Pulmonary: No COPD. GI: No GI ulcer, GI bleeding. Urinary/genital: No dysuria, incontinence, urinary retention. Endocrinologic: No cousin face, craniofacial dysmorphism, polydactyly. Skeletomuscular: No muscular atrophy, deformity. Neurological: see HP. Psychiatric: Denies drug use/abuse. Otherwise, not [id number] review of systems. PHYSICAL EXAMINATION: General appearance is in anxious. HEENT: Normocephalic and nontraumatic. Eyes, nose, ears, and throat are unremarkable. Neck is supple. No lymphadenopathy. No crepitus. Cardiovascular: S1, S2, regular rate and rhythm. Pulmonary: Clear to auscultation bilaterally. Abdomen: Bowel sounds are positive. Abdomen is soft, nontender, and nondistended. Extremities: No rash, lesions, or edema. No restriction of range of motion NEUROLOGICAL EXAMINATION: Alert Oriented to time, place and person. PERRL. EOMI. CN: no focal findings. Muscle tone: within normal. Muscle strength: 5 DTR: 2 Plantar reflex: Flexor response bilaterally Gait: At his baseline normal. Sensory exam: no abnormal findings. No cerebellar signs elicited. F-T-N test accurate. Current Medications Current Medications Current Medications Meclizine HCl (Antivert) 25 mg 1X ONCE PO Last administered on 11/20/18at 01:40; Start 11/20/18 at 00:00; Stop 11/20/18 at 00:03; Status DC Ondansetron HCl (Zofran) 4 mg 1X ONCE IV Last administered on 11/20/18at 01:39; Start 11/20/18 at 00:00; Stop 11/20/18 at 00:03; Status DC Fentanyl Citrate (Fentanyl 2ml Vial) 50 mcg 1X ONCE IV Last administered on 11/20/18at 01:39; Start 11/20/18 at 00:00; Stop 11/20/18 at 00:03; Status DC Lorazepam (Ativan Inj) 1 mg 1X ONCE IV Last administered on 11/20/18at 01:40; Start 11/20/18 at 01:30; Stop 11/20/18 at 01:31; Status DC Ondansetron HCl (Zofran) 4 mg PRN Q8HRS PRN IV NAUSEA/VOMITING; Start 11/20/18 at 02:15; Stop 11/20/18 at 09:53; Status DC Morphine Sulfate (Morphine Sulfate) 2 mg PRN Q2HR PRN IV PAIN Last administered on 11/21/18at 02:16; Start 11/20/18 at 02:15; Stop 11/21/18 at 02:14; Status DC Aspirin (Children'S Aspirin) 324 mg 1X ONCE PO Last administered on 11/20/18at 06:10; Start 11/20/18 at 06:00; Stop 11/20/18 at 06:01; Status DC Ondansetron HCl (Zofran) 4 mg PRN Q6HRS PRN IV NAUSEA/VOMITING Last administere d on 11/21/18at 02:11; Start 11/20/18 at 10:00; Stop 11/22/18 at 16:18; Status DC Acetaminophen (Tylenol) 500 mg PRN Q6HRS PRN PO MILD PAIN / TEMP Last administered on 11/21/18at 17:20; Start 11/20/18 at 10:00; Stop 11/22/18 at 16:18; Status DC Tramadol HCl (Ultram) 50 mg PRN Q6HRS PRN PO PAIN MOD TO SEV Last administered on 11/22/18at 15:32; Start 11/20/18 at 10:00; Stop 11/22/18 at 16:18; Status DC Lidocaine (Lidoderm) 1 patch DAILY TD Last administered on 11/22/18 08:26; Start 11/20/18 at 10:30; Stop 11/22/18 at 16:18; Status DC Miscellaneous (Lidoderm Patch Removal) 1 ea QHS MC ; Start 11/20/18 at 21:00; Stop 11/22/18 at 16:18; Status DC Amiodarone HCl (Cordarone) 200 mg DAILY PO Last administered on 11/22/18at 08:24; Start 11/20/18 at 10:30; Stop 11/22/18 at 16:18; Status DC Aspirin (Ecotrin) 81 mg DAILY PO Last administered on 11/22/18at 08:23; Start 11/20/18 at 10:30; Stop 11/22/18 at 16:18; Status DC Atorvastatin Calcium (Lipitor) 40 mg HS PO Last administered on 11/21/18at 21:48; Start 11/20/18 at 21:00; Stop 11/22/18 at 16:18; Status DC Cyanocobalamin (Vitamin B-12) 1,000 mcg DAILY PO Last administered on 11/22/18 08:23; Start 11/20/18 at 10:30; Stop 11/22/18 at 16:18; Status DC Fludrocortisone Acetate (Florinef) 0.2 mg DAILY PO Last administered on 11/22/18 08:23; Start 11/20/18 at 10:30; Stop 11/22/18 at 16:18; Status DC Folic Acid (Folic Acid) 1 mg DAILY PO Last administered on 11/22/18 08:24; Start 11/20/18 at 10:30; Stop 11/22/18 at 16:18; Status DC Lidocaine (Lidoderm) 1 patch DAILY TP ; Start 11/21/18 at 09:00; Status UNV Pantoprazole Sodium (Protonix) 40 mg DAILYAC PO Last administered on 11/22/18at 08:23; Start 11/20/18 at 10:30; Stop 11/22/18 at 16:18; Status DC Non-Formulary Medication (Melatonin ) 5 mg HS PO ; Start 11/20/18 at 21:00; Status UNV Midodrine (Proamatine) 2.5 mg [id number] PO Last administered on 11/22/18at 12:53; Start 11/20/18 at 13:00; Stop 11/22/18 at 16:18; Status DC Ondansetron HCl (Zofran Odt) 4 mg Q8HRS PO Last administered on 11/22/18at 12:53; Start 11/20/18 at 14:00; Stop 11/22/18 at 16:18; Status DC Polyethylene Glycol (miraLAX PACKET) 17 gm DAILY PO Last administered on at 08:22; Start 11/20/18 at 10:30; Stop 11/22/18 at 16:18; Status DC Pyridostigmine [place] (Mestinon) 30 mg QID PO Last administered on 11/22/18at 12:53; Start 11/20/18 at 10:30; Stop 11/22/18 at 16:18; Status DC Pyridoxine HCl (Vitamin B-6) 25 mg BID PO Last administered on 11/22/18at 08:26; Start 11/20/18 at 10:30; Stop 11/22/18 at 16:18; Status DC Quetiapine Fumarate (SEROquel) 25 mg BID PO Last administered on 11/22/18 08:24; Start 11/20/18 at 10:30; Stop 11/22/18 at 16:18; Status DC Thiamine Mononitrate (Vitamin B-1) 100 mg DAILY PO Last administered on 11/22/18at 08:24; Start 11/20/18 at 10:30; Stop 11/22/18 at 16:18; Status DC Non-Formulary Medication (Tramadol Hcl ) 50 mg Q8HRS PRN PO PAIN; Start 11/20/18 at 10:00; Status UNV Docusate Sodium (Colace) 100 mg BID PO Last administered on 11/22/18at 08:24; Start 11/20/18 at 10:30; Stop 11/22/18 at 16:18; Status DC Alprazolam (Xanax) 0.25 mg PRN Q8HRS PRN PO ANXIETY / AGITATION Last administered on 11/22/18at 03:44; Start 11/20/18 at 10:00; Stop 11/22/18 at 16:18; Status DC Magnesium Citrate (Citroma) 296 ml 1X ONCE PO Last administered on 11/20/18at 17:19; Start 11/20/18 at 14:15; Stop 11/20/18 at 14:16; Status DC Alprazolam (Xanax) 0.5 mg 1X ONCE PO Last administered on 11/21/18at 14:08; Start 11/21/18 at 13:45; Stop 11/21/18 at 13:46; Status DC Potassium Chloride (Klor-Con) 40 meq 1X ONCE PO Last administered on 11/21/18at 18:51; Start 11/21/18 at 17:30; Stop 11/21/18 at 17:31; Status DC Sodium Monofluorophosphate (Fleet Adult) 133 ml DAILY PRN OR CONSTIPATION; Start 11/22/18 at 01:00; Stop 11/22/18 at 16:18; Status DC Bisacodyl (Dulcolax Supp) 10 mg PRN DAILY PRN OR CONSTIPATION Last administered on 11/22/18at 03:44; Start 11/22/18 at 01:00; Stop 11/22/18 at 16:18; Status DC Multi-Ingredient Mouthwash/Gargle (Gi Cocktail) 20 ml 1X ONCE SWSW Last administered on 11/22/18at 14:30; Start 11/22/18 at 14:30; Stop 11/22/18 at 14:31; Status DC Active Scripts Active Meclizine Hcl 25 Mg Tablet 1 Tab PO TID Alprazolam 0.25 Mg Tablet 0.25 Mg PO PRN Q8HRS PRN Amiodarone Hcl 200 Mg Tablet 200 Mg PO DAILY 30 Days Ondansetron Odt (Ondansetron) 4 Mg Tab.rapdis 1 Tab PO PRN Q6-8HRS Protonix (Pantoprazole Sodium) 40 Mg Tablet. 1 Tab PO DAILY Reported Pyridostigmine [place] 60 Mg Tablet 30 Mg PO QID Lidocaine PATCH (Lidocaine) 1 Each Adh..patch 1 Each TP DAILY REMOVE AFTER 12 HOURS Tramadol Hcl 50 Mg Tablet 50 Mg PO Q8HRS PRN Vitamin B-1 (Thiamine Mononitrate) 100 Mg Tablet 100 Mg PO DAILY Seroquel (Quetiapine Fumarate) 25 Mg Tablet 25 Mg PO BID Pyridoxine Hcl 25 Mg Tablet 25 Mg PO BID Miralax (Polyethylene Glycol 3350) 17 Gm Powd.pack 1 Packet PO DAILY Midodrine Hcl 2.5 Mg Tablet 2.5 Mg PO TID Melatonin 3 Mg Tablet 5 Mg PO HS Folic Acid 1 Mg Tablet 1 Tab PO DAILY Fludrocortisone Acetate 0.1 Mg Tablet 0.2 Mg PO DAILY Vitamin B-12 (Cyanocobalamin (Vitamin B-12)) 1,000 Mcg Tablet 1,000 Mcg PO DAILY Colace (Docusate Sodium) 100 Mg Capsule 1 Cap PO BID Atorvastatin Calcium 40 Mg Tablet 40 Mg PO HS Aspir 81 (Aspirin) 81 Mg Tablet. 81 Mg PO DAILY Allergies Allergies: Allergies Coded Allergies Type Severity Reaction Last Updated Verified Penicillins Allergy Unknown PATIENT DOES NOT REMEMBER 11/15/18 Yes hydrocodone Adverse Reaction Intermediate Nausea 11/15/18 Yes ROS Review of System The patient denies any associated fevers, chills, headache, ear pain, rhinorrhea, sore throat, stiff neck, productive cough, chest pain, shortness of breath, back or flank pain, abdominal pain, nausea, vomiting, diarrhea, constipation, dysuria, rash, numbness, weakness, tingling, incontinence, difficulty ambulating, or diaphoresis. Physical Exam Physical Exam General: Well developed, well nourished, no acute distress, well appearing HEENT: Pupils equally round and reactive to light, EOMI, no discharge, normal conjunctiva Neck: Supple, no nuchal rigidity, no JVD, trachea midline, no tenderness Cardiac: RRR, no murmurs, no gallops, no rubs Chest/Lungs: CTAB, no wheeze, no rhonchi, no crackles Abdomen: soft, non-distended, no guarding, no peritoneal signs, non-tender Back: No tenderness Extremities: no edema, pulses intact, non-tender,capillary refill <3 sec bilateral upper and lower extremities, Neuro: Alert and oriented x 4, no focal deficits, normal speech Vitals Vitals: Vital Signs Date Time Temp Pulse Resp B/P (MAP) Pulse Ox O2 Delivery O2 Flow Rate FiO2 11/22/18 12:53 62 131/78 11/22/18 11:00 97.9 18 97 Room Air 97.9 Labs Labs Laboratory Tests Test 11/21/18 14:05 11/22/18 04:50 White Blood Count 4.4 x10^3/uL (4.0-11.0) Red Blood Count 3.77 x10^6/uL (4.30-5.70) Hemoglobin 11.4 g/dL (13.0-17.5) Hematocrit 33.5 % (39.0-53.0) Mean Corpuscular Volume 89 fL (79-100) Mean Corpuscular Hemoglobin 30 pg (25-35) Mean Corpuscular Hemoglobin Concent 34 g/dL (31-37) Red Cell Distribution Width 14.9 % (11.5-14.5) Platelet Count 129 x10^3/uL (140-400) Neutrophils (%) (Auto) 70 % (31-73) Lymphocytes (%) (Auto) 16 % (24-48) Monocytes (%) (Auto) 12 % (0-9) Eosinophils (%) (Auto) 1 % (0-3) Basophils (%) (Auto) 0 % (0-3) Neutrophils # (Auto) 3.1 x10^3/uL (1.8-7.7) Lymphocytes # (Auto) 0.7 x10^3/uL (1.0-4.8) Monocytes # (Auto) 0.5 x10^3/uL (0.0-1.1) Eosinophils # (Auto) 0.0 x10^3/uL (0.0-0.7) Basophils # (Auto) 0.0 x10^3/uL (0.0-0.2) Potassium Level 3.4 mmol/L (3.5-5.1) Magnesium Level 2.2 mg/dL (1.8-2.4) Troponin I Quantitative 0.053 ng/mL (0.000-0.055) Vitamin B12 Level 701 pg/mL (247-911) Thyroid Stimulating Hormone (TSH) 1.029 uIU/mL (0.358-3.74) Triglycerides Level 100 mg/dL (0-150) Cholesterol Level 110 mg/dL (0-200) LDL Cholesterol, Calculated 39 mg/dL (0-100) VLDL Cholesterol, Calculated 20 mg/dL (0-40) Non-HDL Cholesterol Calculated 59 mg/dL (0-129) HDL Cholesterol 51 mg/dL (40-60) Cholesterol/HDL Ratio 2.2 Laboratory Tests Test 11/22/18 04:50 Triglycerides Level 100 mg/dL (0-150) Cholesterol Level 110 mg/dL (0-200) LDL Cholesterol, Calculated 39 mg/dL (0-100) VLDL Cholesterol, Calculated 20 mg/dL (0-40) Non-HDL Cholesterol Calculated 59 mg/dL (0-129) HDL Cholesterol 51 mg/dL (40-60) Cholesterol/HDL Ratio 2.2 VANNESSA COLVIN MD Nov 22, 2018 16:34
== END 2018-11-22 16:05 | disposition home or self-care (01) | DRG 391 ==
LOC: ER 23:43 → 6 SOUTH 11-20 02:05
PROVIDERS: ADMIT Internal Medicine; ATTEND Internal Medicine
DX: K21.9 Gastro-esophageal reflux disease without esophagitis (principal); G93.41 Metabolic encephalopathy; I95.1 Orthostatic hypotension; F45.21 Hypochondriasis; I49.9 Cardiac arrhythmia, unspecified; Z88.8 Allergy status to other drugs, medicaments and biological substances; E78.5 Hyperlipidemia, unspecified; E87.6 Hypokalemia; F41.9 Anxiety disorder, unspecified; I11.0 Hypertensive heart disease with heart failure; I25.10 Atherosclerotic heart disease of native coronary artery without angina pectoris; I49.3 Ventricular premature depolarization; I50.9 Heart failure, unspecified; K74.60 Unspecified cirrhosis of liver; R29.810 Facial weakness; Z79.82 Long term (current) use of aspirin; Z79.899 Other long term (current) drug therapy; Z82.49 Family history of ischemic heart disease and other diseases of the circulatory system; Z87.442 Personal history of urinary calculi; Z88.0 Allergy status to penicillin; Z95.5 Presence of coronary angioplasty implant and graft; G89.29 Other chronic pain; I25.2 Old myocardial infarction; Z90.49 Acquired absence of other specified parts of digestive tract
CPT/HCPCS: 36415; 70450; 70551; 71045; 72100; 72125; 80053; 80061; 81001; 82607; 83690; 83735; 83880; 84132; 84443; 84484; 85025; 85610; 87641; 93005; 96374; 96375; J2060; J2270; J2405; J3010; J8597; Q0162; 97535; 99285-25

== ENCOUNTER 2018-11-25 09:26 | Emergency (ER) | payer MEDICARE ==
[~2018-11-25] VITALS: Ht 171.4 cm; Wt 70.3 kg
[~2018-11-25 09:26] MED LIST changes: +ALPR0.254 PO; +MECL25TA3 PO
[2018-11-25 09:52] LABS: BASO % 0 % (0-3); EOS % 1 % (0-3); HEMATOCRIT 32.6 % (39.0-53.0); LYMPH # 0.9 x10^3/uL (1.0-4.8); LYMPH % 18 % (24-48); MEAN CORPUSCULAR HEMOGLOBIN 30 pg (25-35); MEAN CORPUSCULAR HGB CONC 34 g/dL (31-37); MEAN CORPUSCULAR VOLUME 90 fL (79-100); MONO # 0.5 x10^3/uL (0.0-1.1); MONO % 9 % (0-9); NEUT # 3.7 x10^3/uL (1.8-7.7); NEUT % 71 % (31-73); PLATELET COUNT 116 x10^3/uL (140-400); RED BLOOD COUNT 3.63 x10^6/uL (4.30-5.70); RED CELL DISTRIBUTION WIDTH 15.1 % (11.5-14.5); WHITE BLOOD COUNT 5.1 x10^3/uL (4.0-11.0)
[2018-11-25] MEDS ORDERED: KETOROLAC 30 MG/ML VIAL. IV ONE (10:00)
[2018-11-25] MEDS ORDERED: ONDANSETRON PF 4 MG/2 ML VIAL. IV ONE (10:00)
--- NOTE | 2018-11-25 10:07 | RAD ---
Indication: Chest pain TECHNIQUE: Single AP view of the chest were comparison: s thousand 19 FINDINGS: Heart is normal in size. Lungs are clear. No pneumothorax or pleural effusion. Visualized bony thorax is within normal limits. IMPRESSION: No acute pulmonary process. Electronically signed by: Frank Polanco DO (11/25/2018 10:04 AM) [facility]
[2018-11-25 10:33] LABS: CALCIUM 8.3 mg/dL (8.5-10.1); CREATININE 1.2 mg/dL (0.7-1.3); POTASSIUM 3.5 mmol/L (3.5-5.1)
[2018-11-25 10:37] LABS: ALBUMIN 2.9 g/dL (3.4-5.0); TOTAL BILIRUBIN 0.3 mg/dL (0.2-1.0); TOTAL PROTEIN 5.9 g/dL (6.4-8.2)
[2018-11-25 10:43] LABS: CREATINE KINASE 73 U/L (39-308)
--- NOTE | 2018-11-25 10:49 | RAD ---
PQRS Compliance statement: One or more of the following individualized dose reduction techniques were utilized for this examination: 1. Automated exposure control. 2. Adjustment of the mA and/or kV according to patient size. 3. Use of iterative reconstruction technique. Indication:Dizziness. TECHNIQUE: CT head without IV contrast COMPARISON:11/20/2018 FINDINGS: No pathologic extra-axial or intra-axial fluid collection. The ventricles and basal cisterns are within normal limits. No acute intracranial bleed. No focal loss of prado-white differentiation. Visualized orbits within normal limits. No suspicious calvarial lesions. Visualized paranasal sinuses and mastoid air cells are clear. IMPRESSION: No acute intracranial process on this noncontrast CT. If concern for acute ischemic stroke is high, please consider MRI brain. Electronically signed by: Frank Polanco DO (11/25/2018 10:46 AM) [facility]
--- NOTE | 2018-11-25 10:56 | RAD ---
PQRS Compliance statement: One or more of the following individualized dose reduction techniques were utilized for this examination: 1. Automated exposure control. 2. Adjustment of the mA and/or kV according to patient size. 3. Use of iterative reconstruction technique. Indication:Lower back pain. TECHNIQUE: CT lumbar spine without IV contrast with multiplanar reformats. COMPARISON: None FINDINGS: There are 5 lumbar type vertebral bodies. Lumbar spine demonstrates loss of normal lumbar lordosis. This could be due to muscle spasm or positioning. No compression deformity. Multilevel intervertebral disc space narrowing seen with anterior bridging osteophytes. Facet joints are in normal anatomic alignment. No acute fractures. Mild bilateral SI joint osteoarthritis. L1-L2: Left paracentral disc osteophyte complex indenting anterior thecal sac. Moderate bilateral facet arthropathy. Mild spinal canal narrowing measuring 8 mm in AP dimension. Moderate to severe left and mild right neuroforamina narrowing. L2-L3: Mild disc bulge flattening intrathecal sac. Mild to moderate bilateral facet arthropathy. Mild spinal canal narrowing. Moderate bilateral neuroforamina narrowing. L3-L4: Circumferential disc bulge compressing anterior thecal sac. Moderate facet arthropathy. Severe spinal canal narrowing measuring 5 mm in AP dimension. Severe bilateral neuroforamina narrowing. Calcified ligament of flavum. L4-L5: Mild circumferential disc bulge flattening intrathecal sac. Moderate bilateral facet arthropathy. Moderate bilateral neuroforamina narrowing. L5-S1: Circumferential disc bulge. Moderate bilateral facet arthropathy. Severe bilateral neuroforamina narrowing. IMPRESSION: 1. Multilevel degenerative disc disease with associated facet arthropathy causing varying amount of neuroforaminal narrowing and spinal canal narrowing as described above. Electronically signed by: Frank Polanco DO (11/25/2018 10:53 AM) [facility]
[2018-11-25] MEDS ORDERED: fentaNYL PF VIAL 100 MCG/2 ML VIAL IV ONE (12:00)
[2018-11-25] MEDS ORDERED: MECLIZINE HCL 12.5 MG TABLET. PO ONE (12:45)
[2018-11-25] MEDS ORDERED: LIDOCAINE/PRILOCAINE TOPICAL CREAM 5GM TUBE. TP ONE (12:45)
[2018-11-25 13:00] VITALS: BP 120/71
[2018-11-25] MEDS ORDERED: MECL25TA3 PO (13:06)
--- NOTE | 2018-11-25 13:06 | PHYS DOC ---
Past Medical History Past Medical History: CAD, Hypertension, Kidney Stone, [place], Other Additional Past Medical Histor: [place](12-15 YRS AGO), CHRONIC ABD PAIN Past Surgical History: Other Additional Past Surgical Histo: cardiac stents, ABDOMINAL PROCEDURE, colon resection Alcohol Use: None Drug Use: None Adult General Chief Complaint Chief Complaint: CHEST PAIN HPI HPI Patient is a 73 year old resident of detention with frequent emergency room visits and hospitalization brought in by EMS because of chest pain and dizziness. The patient states he felt dizzy when he wanted to get off the bed this morning at his detention room and had a fall with unwitnessed syncope a nd then had chest pain with his previous episodes of chest pain as a constant pain and rated his pain 10 over 10. Patient later and complaining of pain behind of right ear and right shoulder and back pain after his fall. Patient was asking for pain medication frequently and was anxious. Review of Systems Review of Systems Constitutional: Denies fever or chills [] Eyes: Denies change in visual acuity, redness, or eye pain [] HENT: Denies nasal congestion or sore throat [] Respiratory: Denies cough or shortness of breath [] Cardiovascular: No additional information not addressed in HPI [] GI: Denies abdominal pain, nausea, vomiting, bloody stools or diarrhea [] : Denies dysuria or hematuria [] Musculoskeletal: Denies back pain, reports joint pain [] Integument: Denies rash or skin lesions [] Neurologic: Denies headache, focal weakness or sensory changes [] Endocrine: Denies polyuria or polydipsia [] All other systems were reviewed and found to be within normal limits, except as documented in this note. Current Medications Current Medications Current Medications Medications (Trade) Dose Ordered Sig/Kaylie Start Time Stop Time Status Last Admin Dose Admin Fentanyl Citrate (Fentanyl 2ml Vial) 50 mcg 1X ONCE 11/25/18 12:00 11/25/18 12:01 DC 11/25/18 12:04 50 MCG Ketorolac Tromethamine (Toradol 30mg Vial) 30 mg 1X ONCE 11/25/18 10:00 11/25/18 10:01 DC 11/25/18 10:13 30 MG Lidocaine/ Prilocaine (Emla) 1 merlyn 1X ONCE 11/25/18 12:45 11/25/18 12:46 DC Lorazepam (Ativan Inj) 1 mg 1X ONCE 11/25/18 12:30 11/25/18 12:31 DC 11/25/18 12:32 1 MG Meclizine HCl (Antivert) 25 mg 1X ONCE 11/25/18 12:45 11/25/18 12:46 DC 11/25/18 13:08 25 MG Ondansetron HCl (Zofran) 4 mg 1X ONCE 11/25/18 10:00 11/25/18 10:01 DC 11/25/18 10:13 4 MG Allergies Allergies Allergies Coded Allergies Type Severity Reaction Last Updated Verified Penicillins Allergy Unknown PATIENT DOES NOT REMEMBER 11/15/18 Yes hydrocodone Adverse Reaction Intermediate Nausea 11/15/18 Yes Physical Exam Physical Exam Constitutional: Well nourished, mild distress, non-toxic appearance. [] HENT: Normocephalic, atraumatic, bilateral external ears normal, oropharynx moist, no oral exudates, nose normal. [] Eyes: PERRLA, EOMI, conjunctiva normal, no discharge. [] Neck: Normal range of motion, no tenderness, supple, no stridor. [] Cardiovascular:Heart rate regular rhythm, no murmur [] Lungs & Thorax: Bilateral breath sounds clear to auscultation [] Abdomen: Bowel sounds normal, soft, no tenderness, no masses, no pulsatile masses. [] Skin: Warm, dry, no erythema, no rash. [] Back: No tenderness, no CVA tenderness. [] Extremities: No tenderness, no cyanosis, no clubbing, ROM intact, no edema. [] Neurologic: Alert and oriented X 3, normal motor function, normal sensory function, no focal deficits noted. [] Psychologic: Affect anxious, mood normal. [] Current Patient Data Vital Signs Vital Signs Date Time Temp Pulse Resp B/P (MAP) Pulse Ox O2 Delivery O2 Flow Rate FiO2 11/25/18 13:00 80 18 120/71 (87) 97 Room Air 11/25/18 09:26 98.3 98.3 Lab Values Laboratory Tests Test 11/25/18 09:45 11/25/18 10:05 White Blood Count 5.1 x10^3/uL (4.0-11.0) Red Blood Count 3.63 x10^6/uL (4.30-5.70) L Hemoglobin 11.0 g/dL (13.0-17.5) L Hematocrit 32.6 % (39.0-53.0) L Mean Corpuscular Volume 90 fL (79-100) Mean Corpuscular Hemoglobin 30 pg (25-35) Mean Corpuscular Hemoglobin Concent 34 g/dL (31-37) Red Cell Distribution Width 15.1 % (11.5-14.5) H Platelet Count 116 x10^3/uL (140-400) L Neutrophils (%) (Auto) 71 % (31-73) Lymphocytes (%) (Auto) 18 % (24-48) L Monocytes (%) (Auto) 9 % (0-9) Eosinophils (%) (Auto) 1 % (0-3) Basophils (%) (Auto) 0 % (0-3) Neutrophils # (Auto) 3.7 x10^3/uL (1.8-7.7) Lymphocytes # (Auto) 0.9 x10^3/uL (1.0-4.8) L Monocytes # (Auto) 0.5 x10^3/uL (0.0-1.1) Eosinophils # (Auto) 0.0 x10^3/uL (0.0-0.7) Basophils # (Auto) 0.0 x10^3/uL (0.0-0.2) Sodium Level 140 mmol/L (136-145) Potassium Level 3.5 mmol/L (3.5-5.1) Chloride Level 104 mmol/L (98-107) Carbon Dioxide Level 28 mmol/L (21-32) Anion Gap 8 (6-14) Blood Urea Nitrogen 19 mg/dL (8-26) Creatinine 1.2 mg/dL (0.7-1.3) Estimated GFR (Cockcroft-Gault) 59.0 BUN/Creatinine Ratio 16 (6-20) Glucose Level 112 mg/dL (70-99) H Calcium Level 8.3 mg/dL (8.5-10.1) L Magnesium Level 2.0 mg/dL (1.8-2.4) Total Bilirubin 0.3 mg/dL (0.2-1.0) Aspartate Amino Transferase (AST) 22 U/L (15-37) Alanine Aminotransferase (ALT) 14 U/L (16-63) L Alkaline Phosphatase 71 U/L (46-116) Creatine Kinase 73 U/L (39-308) Creatine Kinase MB (Mass) 2.2 ng/mL (0.0-3.6) Creatine Kinase MB Relative Index % (0-4) Troponin I Quantitative 0.045 ng/mL (0.000-0.055) LB-Tqy-I-Type Natriuretic Peptide 1463 pg/mL (0-449) H Total Protein 5.9 g/dL (6.4-8.2) L Albumin 2.9 g/dL (3.4-5.0) L Albumin/Globulin Ratio 1.0 (1.0-1.7) Lipase 231 U/L (73-393) Laboratory Tests 11/25/18 09:45 Laboratory Tests 11/25/18 10:05 EKG EKG EKG Interpreted by me. EKG at 0932 showed normal sinus rhythm at rate of 77, left atrial abnormality, left fourth axis, prolonged QT, no acute ST-T wave abnormalities. Radiology/Procedures Radiology/Procedures [facility] [address], [place] [id number] IMAGING REPORT Signed PATIENT: DONALD DELONG ACCOUNT: [id number] : 1945 LOCATION: ER AGE: 73 SEX: M EXAM STATUS: REG ER ORD. PHYSICIAN: LEA BAIRD MD REASON: dizziness, LOWER BACK PAIN PROCEDURE: CT LUMBAR SPINE WO CONTRAST PQRS Compliance statement: One or more of the following individualized dose reduction techniques were utilized for this examination: 1. Automated exposure control. 2. Adjustment of the mA and/or kV according to patient size. 3. Use of iterative reconstruction technique. Indication:Lower back pain. TECHNIQUE: CT lumbar spine without IV contrast with multiplanar reformats. COMPARISON: None FINDINGS: There are 5 lumbar type vertebral bodies. Lumbar spine demonstrates loss of normal lumbar lordosis. This could be due to muscle spasm or positioning. No compression deformity. Multilevel intervertebral disc space narrowing seen with anterior bridging osteophytes. Facet joints are in normal anatomic alignment. No acute fractures. Mild bilateral SI joint osteoarthritis. L1-L2: Left paracentral disc osteophyte complex indenting anterior thecal sac. Moderate bilateral facet arthropathy. Mild spinal canal narrowing measuring 8 mm in AP dimension. Moderate to severe left and mild right neuroforamina narrowing. L2-L3: Mild disc bulge flattening intrathecal sac. Mild to moderate bilateral facet arthropathy. Mild spinal canal narrowing. Moderate bilateral neuroforamina narrowing. L3-L4: Circumferential disc bulge compressing anterior thecal sac. Moderate facet arthropathy. Severe spinal canal narrowing measuring 5 mm in AP dimension. Severe bilateral neuroforamina narrowing. Calcified ligament of flavum. L4-L5: Mild circumferential disc bulge flattening intrathecal sac. Moderate bilateral facet arthropathy. Moderate bilateral neuroforamina narrowing. L5-S1: Circumferential disc bulge. Moderate bilateral facet arthropathy. Severe bilateral neuroforamina narrowing. IMPRESSION: 1. Multilevel degenerative disc disease with associated facet arthropathy causing varying amount of neuroforaminal narrowing and spinal canal narrowing as described above. Electronically signed by: Frank Polanco DO (11/25/2018 10:53 AM) [facility] DICTATED and SIGNED BY: FRANK POLANCO DO DATE: 11/25/18 1053 [facility] [address] [place] [address] IMAGING REPORT Signed PATIENT: DONALD DELONG ACCOUNT: [id number] : 1945 LOCATION: ER AGE: 73 SEX: M EXAM STATUS: PRE ER ORD. PHYSICIAN: LEA BAIRD MD REASON: dizziness PROCEDURE: CT HEAD WO CONTRAST PQRS Compliance statement: One or more of the following individualized dose reduction techniques were utilized for this examination: 1. Automated exposure control. 2. Adjustment of the mA and/or kV according to patient size. 3. Use of iterative reconstruction technique. Indication:Dizziness. TECHNIQUE: CT head without IV contrast COMPARISON:11/20/2018 FINDINGS: No pathologic extra-axial or intra-axial fluid collection. The ventricles and basal cisterns are within normal limits. No acute intracranial bleed. No focal loss of prado-white differentiation. Visualized orbits within normal limits. No suspicious calvarial lesions. Visualized paranasal sinuses and mastoid air cells are clear. IMPRESSION: No acute intracranial process on this noncontrast CT. If concern for acute ischemic stroke is high, please consider MRI brain. Electronically signed by: Frank Polanco DO (11/25/2018 10:46 AM) [facility] DICTATED and SIGNED BY: FRANK POLANCO DO DATE: 11/25/18 1046 [facility] [address] [place] [address] IMAGING REPORT Signed PATIENT: DONALD DELONG ACCOUNT: [id number] : 1945 LOCATION: ER AGE: 73 SEX: M EXAM STATUS: PRE ER ORD. PHYSICIAN: LEA BAIRD MD REASON: chest pain PROCEDURE: PORTABLE CHEST 1V Indication: Chest pain TECHNIQUE: Single AP view of the chest were comparison: FINDINGS: Heart is normal in size. Lungs are clear. No pneumothorax or pleural effusion. Visualized bony thorax is within normal limits. IMPRESSION: No acute pulmonary process. Electronically signed by: Frank Polanco DO (11/25/2018 10:04 AM) [facility] DICTATED and SIGNED BY: FRANK POLANCO DO DATE: 11/25/18 1004 Course & Med Decision Making Course & Med Decision Making Pertinent Labs and Imaging studies reviewed. (See chart for details) Evaluation of patient in ER showed 73-year-old male patient resident of detention with history of frequent emergency room visits and hospitalization was discharged 3 days ago to the detention brought in by EMS because of multiple complaining. Patient requesting pain medication and hospitalization frequently and stated he is going to come back if I discharge him. Patient was advised to follow-up with his primary care physician regarding chronic problem. I've spoken with the patient and/or caregivers. I've explained the patient's condition, diagnosis and treatment plan based on information available to me at this time. I've answered the patient's and/or caregivers questions and addressed any concerns. The patient and/or caregivers have a good understanding the patient's diagnosis, condition and treatment plan as can be expected at this point. Vital signs have been stabilized. The patient's condition is stable for discharge from the emergency department. The patient will pursue further outpatient evaluation with her primary care provider or other designated consulting physician as outlined in the discharge instructions. Patient and/or caregivers are agreeable to this plan of care and follow-up instructions have been explained in detail. The patient and/or caregivers have received these instructions in written format and expressed understanding of these discharge instructions. The patient and her caregivers are aware that if any significant change in condition or worsening of symptoms should prompt him to immediately return to this of the closest emergency department. If an emergent department is not readily available I would encourage him to call 911. Dragon Disclaimer Dragon Disclaimer This electronic medical record was generated, in whole or in part, using a voice recognition dictation system. Departure Departure Impression: Primary Impression: Anxiety about health Additional Impressions: Benign paroxysmal vertigo Fall Shoulder pain, right Disposition: HOME, SELF-CARE (detention at 1304) Condition: STABLE Referrals: JENNI BOURNE MD (PCP) Patient Instructions: Anxiety and Panic Attacks, Benign Positional Vertigo, Fall Prevention and Home Safety, Shoulder Pain Additional Instructions: Continue current medication Follow-up with your primary care physician in 2-3 days Return to ER if not getting better Scripts Meclizine Hcl (MECLIZINE HCL) 25 Mg Tablet 1 TAB PO TID for dizziness, #20 TAB Prov: LEA BAIRD MD 11/25/18 The HEART Score for CP Pts HEART Score for Chest Pain: HEART Score for Chest Pain Response (Comments) Value History Slighlty/Non-Suspicious 0 ECG Nonspecific Repolarizatio 1 Age > 65 2 Risk Factors >3 Risk Factors or Hx CAD 2 Troponin < Normal Limit 0 Total 5 Risk Factors: Risk Factors: DM, Current or recent (<one month) smoker, HTN, HLP, family history of CAD, obesity. Risk Scores: Score 0 - 3: 2.5% MACE over next 6 weeks - Discharge Home Score 4 - 6: 20.3% MACE over next 6 weeks - Admit for Clinical Observation Score 7 - 10: 72.7% MACE over next 6 weeks - Early Invasive Strategies Problem Qualifiers Additional Impressions: Benign paroxysmal vertigo Laterality: unspecified laterality Qualified Codes: H81.10 - Benign paroxysmal vertigo, unspecified ear Fall Encounter type: sequela Qualified Codes: W19.XXXS - Unspecified fall, sequela Shoulder pain, right Chronicity: acute Qualified Codes: M25.511 - Pain in right shoulder LEA BAIRD MD Nov 25, 2018 13:06
--- NOTE | 2018-11-25 13:36 | EKG ---
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
== END 2018-11-25 13:36 | disposition home or self-care (01) ==
LOC: ER 09:26
DX: H81.11 Benign paroxysmal vertigo, right ear (principal); M25.511 Pain in right shoulder; F41.9 Anxiety disorder, unspecified; R07.89 Other chest pain; M47.816 Spondylosis without myelopathy or radiculopathy, lumbar region; I10 Essential (primary) hypertension; G89.29 Other chronic pain; I25.10 Atherosclerotic heart disease of native coronary artery without angina pectoris; I25.2 Old myocardial infarction; Z95.5 Presence of coronary angioplasty implant and graft; Z88.0 Allergy status to penicillin; Z88.5 Allergy status to narcotic agent
CPT/HCPCS: 36415; 70450; 71045; 72131; 80053; 82550; 82553; 83690; 83735; 83880; 84484; 85025; 93005; 96374; 96375; 99285; J1885; J2060; J2405; J3010; J8597

== ENCOUNTER 2020-05-07 17:34 | Inpatient (IN) | payer MEDICARE, OTHER ==
[~2020-05-07] VITALS: Ht 180.3 cm; Wt 66.2 kg
[~2020-05-07 17:34] MED LIST changes: -AMIO200T4 PO; +AMIO200T6 PO; +CYAN-25 PO; -CYAN10005 PO; +CYCL5TAB PO; +GABA300C18 PO; +MECL-75 PO; -MECL12.52 PO; +MECL12.582 PO; -MECL25TA3 PO; -MELA3TAB2 PO; +MELA3TAB4 PO; -NITR1PAT5; +NITR1PAT72; -POLY17PO28 PO; +POLY17PO52 PO; +POTA20TA4 PO; -PYRI25TA3 PO; +PYRI50TA6 PO
--- NOTE | 2020-05-07 18:17 | PHYS DOC ---
Past Medical History Past Medical History: CAD, CHF, Hypertension, Kidney Stone, [place], Other Additional Past Medical Histor: Chronic back pain Past Surgical History: Other Additional Past Surgical Histo: cardiac stents, ABDOMINAL PROCEDURE, colon resection Smoking Status: Unknown if ever smoked Alcohol Use: None Drug Use: None Adult General Chief Complaint Chief Complaint: SHORTNESS OF BREATH HPI HPI Patient is a 75 year old male with a complicated past medical history which includes CAD, CHF, hypertension, prior [place] now presents emergency department from her senior care with her fever and failure to thrive. Patient reports [place] no significant report was given. According to EMS patient noted to not be eating or drinking for approximately 3 days. Patient noted to have a fever of 100.6 today. When I asked the patient if he is having any symptoms he denies any chest pain, shortness of breath, cough, dizziness or lightheadedness but only appears oriented x2. Review of Systems Review of Systems Constitutional: Denies fever or chills [] Eyes: Denies change in visual acuity, redness, or eye pain [] HENT: Denies nasal congestion or sore throat [] Respiratory: Denies cough or shortness of breath [] Cardiovascular: No additional information not addressed in HPI [] GI: Denies abdominal pain, nausea, vomiting, bloody stools or diarrhea [] : Denies dysuria or hematuria [] Musculoskeletal: Denies back pain or joint pain [] Integument: Denies rash or skin lesions [] Neurologic: Denies headache, focal weakness or sensory changes [] Endocrine: Denies polyuria or polydipsia [] All other systems were reviewed and found to be within normal limits, except as documented in this note. Current Medications Current Medications Current Medications Medications (Trade) Dose Ordered Sig/[facility] Start Time Stop Time Status Last Admin Dose Admin Morphine Sulfate (Morphine Sulfate) 4 mg 1X ONCE 05/07/20 19:30 05/07/20 19:33 DC Allergies Allergies Allergies Coded Allergies Type Severity Reaction Last Updated Verified Penicillins Allergy Intermediate 03/30/20 Yes hydrocodone Adverse Reaction Intermediate Nausea 11/15/18 Yes Physical Exam Physical Exam Constitutional: Well developed, well nourished, no acute distress, non-toxic appearance. [] HENT: Normocephalic, atraumatic, bilateral external ears normal, oropharynx moist, no oral exudates, nose normal. [] Eyes: PERRLA, EOMI, conjunctiva normal, no discharge. [] Neck: Normal range of motion, no tenderness, supple, no stridor. [] Cardiovascular:Heart rate regular rhythm, no murmur [] Lungs & Thorax: Bilateral breath sounds clear to auscultation [] Abdomen: Bowel sounds normal, soft, no tenderness, no masses, no pulsatile masses. [] Skin: Warm, dry, no erythema, no rash. [] Back: No tenderness, no CVA tenderness. [] Extremities: No tenderness, no cyanosis, no clubbing, ROM intact, no edema. [] Neurologic: Alert and oriented X 3, normal motor function, normal sensory function, no focal deficits noted. [] Psychologic: Affect normal, judgement normal, mood normal. [] Current Patient Data Vital Signs Vital Signs Date Time Temp Pulse Resp B/P (MAP) Pulse Ox O2 Delivery O2 Flow Rate FiO2 05/07/20 17:40 99.8 85 22 156/73 (100) 95 Nasal Cannula 2.0 99.8 Lab Values Laboratory Tests Test 05/07/20 18:50 White Blood Count 3.7 x10^3/uL (4.0-11.0) L Red Blood Count 3.54 x10^6/uL (4.30-5.70) L Hemoglobin 10.6 g/dL (13.0-17.5) L Hematocrit 31.5 % (39.0-53.0) L Mean Corpuscular Volume 89 fL (79-100) Mean Corpuscular Hemoglobin 30 pg (25-35) Mean Corpuscular Hemoglobin Concent 34 g/dL (31-37) Red Cell Distribution Width 14.9 % (11.5-14.5) H Platelet Count 90 x10^3/uL (140-400) L Neutrophils (%) (Auto) 67 % (31-73) Lymphocytes (%) (Auto) 22 % (24-48) L Monocytes (%) (Auto) 11 % (0-9) H Eosinophils (%) (Auto) 0 % (0-3) Basophils (%) (Auto) 0 % (0-3) Neutrophils # (Auto) 2.5 x10^3/uL (1.8-7.7) Lymphocytes # (Auto) 0.8 x10^3/uL (1.0-4.8) L Monocytes # (Auto) 0.4 x10^3/uL (0.0-1.1) Eosinophils # (Auto) 0.0 x10^3/uL (0.0-0.7) Basophils # (Auto) 0.0 x10^3/uL (0.0-0.2) Sodium Level 142 mmol/L (136-145) Potassium Level 3.1 mmol/L (3.5-5.1) L Chloride Level 103 mmol/L (98-107) Carbon Dioxide Level 29 mmol/L (21-32) Anion Gap 10 (6-14) Blood Urea Nitrogen 31 mg/dL (8-26) H Creatinine 1.6 mg/dL (0.7-1.3) H Estimated GFR (Cockcroft-Gault) 42.1 BUN/Creatinine Ratio 19 (6-20) Glucose Level 90 mg/dL (70-99) Calcium Level 8.1 mg/dL (8.5-10.1) L Total Bilirubin Pending Aspartate Amino Transferase (AST) Pending Alanine Aminotransferase (ALT) Pending Alkaline Phosphatase Pending Total Protein Pending Albumin Pending Albumin/Globulin Ratio Pending Laboratory Tests 05/07/20 18:50 Laboratory Tests 05/07/20 18:50 EKG EKG [] Radiology/Procedures Radiology/Procedures [] Course & Med Decision Making Course & Med Decision Making Pertinent Labs and Imaging studies reviewed. (See chart for details) [] COVID-19 CRITERIA: The patient was evaluated during the global COVID-19 pandemic, and that diagnosis was suspected/considered upon their initial presentation. Their evaluation, treatment and testing was consistent with current guidelines for patients who present with complaints or symptoms that may be related to COVID-19. Dragon Disclaimer Dragon Disclaimer This electronic medical record was generated, in whole or in part, using a voice recognition dictation system. Departure Departure Referrals: NON,STAFF (PCP) COVID-19 Assessment: COVID-19 Patient Risks: Age 65 or older: Yes Sign of co-morbidity: Yes Exp to person + for COVID: Yes Exp to PUI: Yes Travel from affected area: No Lower respiratory symptoms: Yes Fever: Yes PPE Use: Full PPE with N95 mask or PAPR: Yes WILIAN CANDELARIO MD May 07, 2020 18:17
--- NOTE | 2020-05-07 19:04 | RAD ---
EXAM: AP View of the chest DATE: 05/07/2020 6:37 PM INDICATION: Shortness of breath COMPARISON: 11/25/2018 03/29/2020 FINDINGS: The heart is not enlarged. Aorta is tortuous. Left mid lung and bilateral lung base airspace opacities are now seen, suspicious for multifocal cons olidative process as pneumonia. Imaging follow-up to resolution is recommended. Left hilar prominence may represent prominent pulmonary arterial trunk or hilar lymph node/mass. Recommend close attention on follow-up. No pleural effusion or pneumothorax. IMPRESSION: 1. Multifocal parenchymal opacities likely multifocal consolidative process. Imaging follow-up to re solution is recommended to exclude underlying mass. 2. Left hilar prominence recommend close attention on follow-up. Electronically signed by: Lasha Mackay MD (05/07/2020 7:02 PM) [facility]
[2020-05-07 19:19] LABS: BASO % 0 % (0-3); EOS % 0 % (0-3); HEMATOCRIT 31.5 % (39.0-53.0); HEMOGLOBIN 10.6 g/dL (13.0-17.5); LYMPH # 0.8 x10^3/uL (1.0-4.8); LYMPH % 22 % (24-48); MEAN CORPUSCULAR HEMOGLOBIN 30 pg (25-35); MEAN CORPUSCULAR HGB CONC 34 g/dL (31-37); MEAN CORPUSCULAR VOLUME 89 fL (79-100); MONO # 0.4 x10^3/uL (0.0-1.1); MONO % 11 % (0-9); NEUT # 2.5 x10^3/uL (1.8-7.7); NEUT % 67 % (31-73); PLATELET COUNT 90 x10^3/uL (140-400); RED BLOOD COUNT 3.54 x10^6/uL (4.30-5.70); RED CELL DISTRIBUTION WIDTH 14.9 % (11.5-14.5); WHITE BLOOD COUNT 3.7 x10^3/uL (4.0-11.0)
[2020-05-07] MEDS ORDERED: MORPHINE SULFATE 4 MG/ML VIAL. IV ONE (19:30)
[2020-05-07 19:31] LABS: CALCIUM 8.1 mg/dL (8.5-10.1); CREATININE 1.6 mg/dL (0.7-1.3); GFR 42.1; POTASSIUM 3.1 mmol/L (3.5-5.1)
[2020-05-07 19:37] LABS: ALBUMIN/GLOBULIN RATIO 1.1 (1.0-1.7); TOTAL BILIRUBIN 0.8 mg/dL (0.2-1.0); TOTAL PROTEIN 5.8 g/dL (6.4-8.2)
[2020-05-07] MEDS ORDERED: HALOPERIDOL LACTATE 5 MG/ML VIAL. IVP ONE (20:15)
[2020-05-07] MEDS ORDERED: AZITHRMYCN 500MG IVPB FOR OMNI 250 ML IV ONE (20:30)
[2020-05-07] MEDS ORDERED: DEXAMETHASONE SOD PHOS 4 MG/ML VIAL IVP ONE (20:30)
[2020-05-07] MEDS ORDERED: ONDANSETRON PF 4 MG/2 ML VIAL. IV PRN (21:15)
[2020-05-07 22:11] LABS: INFLUENZA A PATIENT NEGATIVE (NEGATIVE); INFLUENZA B PATIENT NEGATIVE (NEGATIVE)
[2020-05-07] MEDS: MORPHINE SULFATE 2 MG/ML VIAL. IV PRN (23:26)
[2020-05-08] MEDS: MORPHINE SULFATE 2 MG/ML VIAL. IV PRN ×3 (02:52→08:34)
[2020-05-08 03:50] VITALS: BP 107/50
[2020-05-08] MEDS ORDERED: MORPHINE SULFATE 4 MG/ML VIAL. IV PRN (04:00)
--- NOTE | 2020-05-08 05:26 | NUR ---
Pt. arrived on unit at around 0140 by bed from the ED. Pt. states he is in pain. Call light was placed within reach with bed in lowest locked position with bed alarm on. Will continue to monitor.
--- NOTE | 2020-05-08 06:48 | NUR ---
Pt.'s friend Dior was called this morning. She states pt. has a clinical social work therapist but she was unsure of the name and number and she is ok with receiving updates on patient but is unable to care for him anymore due to her personal health. Pt. does have family but they don't want to care for him. Pt. is a resident of [facility] in [place]. Pt.'s 4 digit code was given to Dior.
[2020-05-08 07:00] VITALS: BP 154/76
--- NOTE | 2020-05-08 07:25 | NUR ---
Yusra was called for a copy of pt.'s medications. This was passed on to day shift nurse.
--- NOTE | 2020-05-08 08:49 | PDOC1 ---
History and Physical Date of Service: DOS: DATE: 05/08/20 TIME: 08:43 Chief Complaint: Chief Complain: Fever and not eating History of Present Illness: HPI: 75 year old male with a complicated past medical history which includes CAD, CHF, hypertension, prior [place] now presents emergency department from her senior living with her fever and failure to thrive. Patient reports [place] no significant report was given. According to EMS patient noted to not be eating or drinking for approximately 3 days. Patient noted to have a fever of 100.6 today. When I asked the patient if he is having any symptoms he denies any chest pain, shortness of breath, cough, dizziness or lightheadedness but only appears oriented x2. Past Medical/Surgical History: PMH/PSH: Past Medical History: CAD, CHF, Hypertension, Kidney Stone, [place], Chronic back pain Past Surgical History: cardiac stents, ABDOMINAL PROCEDURE, colon resection Allergies: Allergies: Coded Allergies: Penicillins (Verified Allergy, Intermediate, 03/30/20) hydrocodone (Verified Adverse Reaction, Intermediate, Nausea, 11/15/18) Pt stated this morning that Hydrocodone makes him sick to his stomach, even when given with food Social History: Social History: Smoking Status: Unknown if ever smoked Alcohol Use: None Drug Use: None Current Medications: Current Medications Current Medications Morphine Sulfate (Morphine Sulfate) 4 mg 1X ONCE IV Last administered on 05/07/20at 19:57; Start 05/07/20 at 19:30; Stop 05/07/20 at 19:33; Status DC Haloperidol Lactate (Haldol Inj) 5 mg 1X ONCE IVP Last administered on 05/07/20at 20:12; Start 05/07/20 at 20:15; Stop 05/07/20 at 20:18; Status DC Azithromycin 250 ml @ 250 mls/hr 1X ONCE IV Last administered on 05/07/20at 20:54; Start 05/07/20 at 20:30; Stop 05/07/20 at 21:29; Status DC Dexamethasone Sodium Phosphate (Decadron) 6 mg 1X ONCE IVP Last administered on 05/07/20at 20:53; Start 05/07/20 at 20:30; Stop 05/07/20 at 20:36; Status DC Ondansetron HCl (Zofran) 4 mg PRN Q8HRS PRN IV NAUSEA/VOMITING 1ST CHOICE Last administered on 05/07/20at 23:26; Start 05/07/20 at 21:15; Stop 05/08/20 at 21:14 Morphine Sulfate (Morphine Sulfate) 2 mg PRN Q2HR PRN IV SEVERE PAIN 7-10 Last administered on 05/08/20at 08:34; Start 05/07/20 at 21:15; Stop 05/08/20 at 21:14 Active Scripts Active Meclizine Hcl 25 Mg Tablet 1 Tab PO TID Alprazolam 0.25 Mg Tablet 0.25 Mg PO PRN Q8HRS PRN Amiodarone Hcl 200 Mg Tablet 200 Mg PO DAILY 30 Days Protonix (Pantoprazole Sodium) 40 Mg Tablet. 1 Tab PO DAILY Reported Cyclobenzaprine Hcl 5 Mg Tablet 5 Mg PO TID PRN Klor-Con M20 (Potassium Chloride) 20 Meq Tab.er.prt 20 Meq PO DAILY Flomax (Tamsulosin Hcl) 0.4 Mg Cap.er.24h 1 Cap PO DAILY Gabapentin 300 Mg Capsule 300 Mg PO TID Pyridostigmine [place] 60 Mg Tablet 30 Mg PO QID Vitamin B-1 (Thiamine Mononitrate) 100 Mg Tablet 100 Mg PO DAILY Pyridoxine Hcl (Pyridoxine Hcl) 25 Mg Tablet 25 Mg PO BID Miralax (Polyethylene Glycol 3350) 17 Gm Powd.pack 1 Packet PO DAILY Midodrine Hcl 2.5 Mg Tablet 2.5 Mg PO TID Melatonin 3 Mg Tablet 5 Mg PO HS Folic Acid 1 Mg Tablet 1 Tab PO DAILY Fludrocortisone Acetate 0.1 Mg Tablet 0.1 Mg PO BID Vitamin B-12 (Cyanocobalamin (Vitamin B-12)) 1,000 Mcg Tablet 1,000 Mcg PO DAILY Colace (Docusate Sodium) 100 Mg Capsule 1 Cap PO BID Atorvastatin Calcium 40 Mg Tablet 40 Mg PO HS Aspir 81 (Aspirin) 81 Mg Tablet. 81 Mg PO DAILY ROS: Review of Systems Review of System REVIEW OF SYSTEMS: GENERAL: Denies weakness SKIN: No bruising, hair changes or rashes. EYES: No blurred, double or loss of vision. NOSE AND THROAT: No history of nosebleeds, hoarseness or sore throat. HEART: No history of palpitations, chest pain or shortness of breath on exertion. LUNGS: Denies cough, hemoptysis, wheezing or shortness of breath. GASTROINTESTINAL: Denies changes in appetite, nausea, vomiting, diarrhea or constipation. GENITOURINARY: No history of frequency, urgency, hesitancy or nocturia. NEUROLOGIC: Denies history of numbness, tingling, or tremor. PSYCHIATRIC: No history of panic, anxiety or depression. ENDOCRINE: No history of heat or cold intolerance, polyuria or polydipsia. EXTREMITIES: Denies joint pain, pain on walking or stiffness. Physical Exam: Vital Signs: Vital Signs Date Time Temp Pulse Resp B/P (MAP) Pulse Ox O2 Delivery O2 Flow Rate FiO2 05/08/20 08:34 97 Room Air 3.0 05/08/20 07:00 97.1 90 23 154/76 (102) 97.1 Physcial Exam: GEN: No apparent distress. Alert and oriented HEENT: Normal cephalic, atraumatic, external auditory canals are patent EYES: Extraocular muscles are intact, pupil are equally round and reactive to light and accommodation MUSCULOSKELETAL: Well developed , well nourished, good range of motion ENDOCRINE: No thyromegaly was palpated LYMPHATICS: No cervical chain or axillary nodes were noted HEMATOPOIETIC: No bruising NECK: Supple, no JVD, no thyromegaly was noted LUNGS: Clear to auscultation in all lung caruso without rhonchi or wheezing HEART: RRR, S!, S2 present. Peripheral pulses intact, no obvious murmurs noted ABDOMEN: Soft, nontender. Positive bowel sounds, no organomegaly, normal bowel sounds EXTREMITIES: Without clubbing, cyanosis, or edema. Pedal pulses intact. N egative Homans sign NEUROLOGIC: Normal speech and tone. A&O x 3, moves all extremities, no obvious focal deficits PSYCHIATRIC: Normal affect, normal mood. Stable SKIN: No ulcerations or rashes, good skin turgor, no jaundice VASCULAR: Good capillary refill, neurovascular bundle appears to be intact Labs: Labs: Laboratory Tests Test 05/07/20 18:50 05/07/20 19:09 White Blood Count 3.7 x10^3/uL (4.0-11.0) Red Blood Count 3.54 x10^6/uL (4.30-5.70) Hemoglobin 10.6 g/dL (13.0-17.5) Hematocrit 31.5 % (39.0-53.0) Mean Corpuscular Volume 89 fL (79-100) Mean Corpuscular Hemoglobin 30 pg (25-35) Mean Corpuscular Hemoglobin Concent 34 g/dL (31-37) Red Cell Distribution Width 14.9 % (11.5-14.5) Platelet Count 90 x10^3/uL (140-400) Neutrophils (%) (Auto) 67 % (31-73) Lymphocytes (%) (Auto) 22 % (24-48) Monocytes (%) (Auto) 11 % (0-9) Eosinophils (%) (Auto) 0 % (0-3) Basophils (%) (Auto) 0 % (0-3) Neutrophils # (Auto) 2.5 x10^3/uL (1.8-7.7) Lymphocytes # (Auto) 0.8 x10^3/uL (1.0-4.8) Monocytes # (Auto) 0.4 x10^3/uL (0.0-1.1) Eosinophils # (Auto) 0.0 x10^3/uL (0.0-0.7) Basophils # (Auto) 0.0 x10^3/uL (0.0-0.2) Sodium Level 142 mmol/L (136-145) Potassium Level 3.1 mmol/L (3.5-5.1) Chloride Level 103 mmol/L (98-107) Carbon Dioxide Level 29 mmol/L (21-32) Anion Gap 10 (6-14) Blood Urea Nitrogen 31 mg/dL (8-26) Creatinine 1.6 mg/dL (0.7-1.3) Estimated GFR (Cockcroft-Gault) 42.1 BUN/Creatinine Ratio 19 (6-20) Glucose Level 90 mg/dL (70-99) Calcium Level 8.1 mg/dL (8.5-10.1) Total Bilirubin 0.8 mg/dL (0.2-1.0) Aspartate Amino Transf (AST/SGOT) 161 U/L (15-37) Alanine Aminotransferase (ALT/SGPT) 120 U/L (16-63) Alkaline Phosphatase 69 U/L (46-116) Total Protein 5.8 g/dL (6.4-8.2) Albumin 3.0 g/dL (3.4-5.0) Albumin/Globulin Ratio 1.1 (1.0-1.7) Influenza Type A Antigen Negative (NEGATIVE) Influenza Type B Antigen Negative (NEGATIVE) Laboratory Tests Test 05/07/20 18:50 05/07/20 19:09 White Blood Count 3.7 x10^3/uL (4.0-11.0) Red Blood Count 3.54 x10^6/uL (4.30-5.70) Hemoglobin 10.6 g/dL (13.0-17.5) Hematocrit 31.5 % (39.0-53.0) Mean Corpuscular Volume 89 fL (79-100) Mean Corpuscular Hemoglobin 30 pg (25-35) Mean Corpuscular Hemoglobin Concent 34 g/dL (31-37) Red Cell Distribution Width 14.9 % (11.5-14.5) Platelet Count 90 x10^3/uL (140-400) Neutrophils (%) (Auto) 67 % (31-73) Lymphocytes (%) (Auto) 22 % (24-48) Monocytes (%) (Auto) 11 % (0-9) Eosinophils (%) (Auto) 0 % (0-3) Basophils (%) (Auto) 0 % (0-3) Neutrophils # (Auto) 2.5 x10^3/uL (1.8-7.7) Lymphocytes # (Auto) 0.8 x10^3/uL (1.0-4.8) Monocytes # (Auto) 0.4 x10^3/uL (0.0-1.1) Eosinophils # (Auto) 0.0 x10^3/uL (0.0-0.7) Basophils # (Auto) 0.0 x10^3/uL (0.0-0.2) Sodium Level 142 mmol/L (136-145) Potassium Level 3.1 mmol/L (3.5-5.1) Chloride Level 103 mmol/L (98-107) Carbon Dioxide Level 29 mmol/L (21-32) Anion Gap 10 (6-14) Blood Urea Nitrogen 31 mg/dL (8-26) Creatinine 1.6 mg/dL (0.7-1.3) Estimated GFR (Cockcroft-Gault) 42.1 BUN/Creatinine Ratio 19 (6-20) Glucose Level 90 mg/dL (70-99) Calcium Level 8.1 mg/dL (8.5-10.1) Total Bilirubin 0.8 mg/dL (0.2-1.0) Aspartate Amino Transf (AST/SGOT) 161 U/L (15-37) Alanine Aminotransferase (ALT/SGPT) 120 U/L (16-63) Alkaline Phosphatase 69 U/L (46-116) Total Protein 5.8 g/dL (6.4-8.2) Albumin 3.0 g/dL (3.4-5.0) Albumin/Globulin Ratio 1.1 (1.0-1.7) Influenza Type A Antigen Negative (NEGATIVE) Influenza Type B Antigen Negative (NEGATIVE) Images: Images CXR IMPRESSION: 1. Multifocal parenchymal opacities likely multifocal consolidative process. Imaging follow-up to resolution is recommended to exclude underlying mass. 2. Left hilar prominence recommend close attention on follow-up. Justifications for Admission Other Justification LETY MONET MD May 08, 2020 08:49
[2020-05-08 11:00] VITALS: BP 130/60
[2020-05-08 11:02] LABS: BASO % 0 % (0-3); EOS % 0 % (0-3); HEMATOCRIT 29.9 % (39.0-53.0); HEMOGLOBIN 10.1 g/dL (13.0-17.5); LYMPH # 0.5 x10^3/uL (1.0-4.8); LYMPH % 10 % (24-48); MEAN CORPUSCULAR HEMOGLOBIN 30 pg (25-35); MEAN CORPUSCULAR HGB CONC 34 g/dL (31-37); MEAN CORPUSCULAR VOLUME 89 fL (79-100); MONO # 0.4 x10^3/uL (0.0-1.1); MONO % 8 % (0-9); NEUT % 82 % (31-73); PLATELET COUNT 90 x10^3/uL (140-400); RED BLOOD COUNT 3.37 x10^6/uL (4.30-5.70); RED CELL DISTRIBUTION WIDTH 15.1 % (11.5-14.5); WHITE BLOOD COUNT 4.9 x10^3/uL (4.0-11.0)
[2020-05-08 11:16] LABS: CREATININE 1.3 mg/dL (0.7-1.3); GFR 53.5; POTASSIUM 3.2 mmol/L (3.5-5.1)
[2020-05-08 15:00] VITALS: BP 139/84
--- NOTE | 2020-05-08 15:42 | NUR ---
SW following for discharge planning. Spoke with RN and reviewed chart. SW consulted for return to [place] when stable. Pt resides in LTC at [facility]. SW coordinated care with Elaine from the facility. Pt COVID positive, 3l 02, cardiac diet. PT/OT to evaluate. SW following.
[2020-05-08] MEDS ORDERED: SENNOSIDES 8.6 MG TABLET PO PRN (15:45)
[2020-05-08] MEDS ORDERED: DEXTROSE 50% 25 GM / 50ML DISP.SYRIN. IV PRN (15:45)
[2020-05-08] MEDS ORDERED: DOCUSATE SODIUM 100 MG CAPSULE. PO PRN (15:45)
[2020-05-08] MEDS ORDERED: POTASSIUM CHLORIDE 20 MEQ TABLET.ER. PO ONE (15:45)
[2020-05-08] MEDS ORDERED: ONDANSETRON PF 4 MG/2 ML VIAL. IVP PRN (15:45)
[2020-05-08] MEDS ORDERED: ENOXAPARIN 30 MG/0.3 ML SYRINGE. SQ ONE (15:45)
[2020-05-08 19:00] VITALS: BP 134/63
[2020-05-08] MEDS: cefTRIAXone IV Push 1 GM VIAL. IVP SCH (20:54)
[2020-05-08] MEDS: AZITHROMYCIN 500 MG in IV NORMAL SALINE 250ML 250 ML IV SCH (20:55)
[2020-05-08 23:00] VITALS: BP 145/67
[2020-05-09] MEDS ORDERED: ACETAMINOPHEN 325 MG TABLET. PO PRN
[2020-05-09] MEDS: ACETAMINOPHEN 650 MG SUPP.RECT. PR PRN ×2 (00:22→11:09)
[2020-05-09 03:00] VITALS: BP 137/72
[2020-05-09] MEDS: MORPHINE SULFATE 2 MG/ML VIAL. IV PRN ×2 (03:35→15:33)
[2020-05-09 04:54] LABS: BASO % 0 % (0-3); EOS % 0 % (0-3); HEMATOCRIT 30.2 % (39.0-53.0); HEMOGLOBIN 10.3 g/dL (13.0-17.5); LYMPH # 0.8 x10^3/uL (1.0-4.8); LYMPH % 13 % (24-48); MEAN CORPUSCULAR HEMOGLOBIN 30 pg (25-35); MEAN CORPUSCULAR HGB CONC 34 g/dL (31-37); MEAN CORPUSCULAR VOLUME 89 fL (79-100); MONO # 0.4 x10^3/uL (0.0-1.1); MONO % 6 % (0-9); NEUT # 5.4 x10^3/uL (1.8-7.7); NEUT % 81 % (31-73); PLATELET COUNT 100 x10^3/uL (140-400); RED BLOOD COUNT 3.39 x10^6/uL (4.30-5.70); RED CELL DISTRIBUTION WIDTH 15.2 % (11.5-14.5); WHITE BLOOD COUNT 6.7 x10^3/uL (4.0-11.0)
[2020-05-09 05:10] LABS: CALCIUM 7.8 mg/dL (8.5-10.1); CREATININE 1.2 mg/dL (0.7-1.3); GFR 58.7; MAGNESIUM 1.9 mg/dL (1.8-2.4); PHOSPHORUS 2.9 mg/dL (2.6-4.7); POTASSIUM 3.2 mmol/L (3.5-5.1)
[2020-05-09 07:59] VITALS: BP_SYST 164; BP_SYST 170; BP_DIAS 56; BP_DIAS 81
[2020-05-09] MEDS ORDERED: IV NORMAL SALINE 1000ML BAG 1,000 ML IV SCH (10:00)
[2020-05-09] MEDS: POTASSIUM CHLORIDE 10MEQ 100 ML IV SCH ×8 (11:09→20:30)
[2020-05-09 11:16] VITALS: BP 165/82
--- NOTE | 2020-05-09 14:32 | PDOC ---
[employer] PROGRESS NOTE Date of Service DOS: DATE: 05/09/20 TIME: 14:25 Chief Complaint Chief Complaint Acute encephalopathy NOS Concern for CAP Investigation for COVID-19 We will start on D5 half NS at 50 Admit to medicine for further management COVID-19 pending Continue empiric IV antibiotics IV 6 mg dexamethasone Daily if Covid test is positive Pending blood cultures Lovenox for DVT prophylaxis Protonix GI prophylaxis ADA diet Full code Discussed with RN and SW Disposition inpatient management as above Surrogate decision maker is the unknown History of Present Illness History of Present Illness 05/09/2020 No acute events overnight. Patient continues to be demented and confused. 75 year old male with a complicated past medical history which includes CAD, CHF, hypertension, prior [place] now presents emergency department from her [place] [facility] with her fever and failure to thrive. Patient reports [place] no significant report was given. According to EMS patient noted to not be eating or drinking for approximately 3 days. Patient noted to have a fever of 100.6 today. When I asked the patient if he is having any symptoms he denies any chest pain, shortness of breath, cough, dizziness or lightheadedness but only appears oriented x2. Vitals/I&O Vitals/I&O: Vital Signs Date Time Temp Pulse Resp B/P (MAP) Pulse Ox O2 Delivery O2 Flow Rate FiO2 05/09/20 11:16 100.9 94 20 165/82 (109) 92 Room Air 3.0 100.9 I & O 05/08/20 05/08/20 05/09/20 15:00 23:00 07:00 Intake Total 0 ml 250 ml Output Total 300 ml Balance -300 ml 250 ml Physical Exam Lungs: Clear Labs Labs: Laboratory Tests Test 05/09/20 04:30 White Blood Count 6.7 x10^3/uL (4.0-11.0) Red Blood Count 3.39 x10^6/uL (4.30-5.70) Hemoglobin 10.3 g/dL (13.0-17.5) Hematocrit 30.2 % (39.0-53.0) Mean Corpuscular Volume 89 fL (79-100) Mean Corpuscular Hemoglobin 30 pg (25-35) Mean Corpuscular Hemoglobin Concent 34 g/dL (31-37) Red Cell Distribution Width 15.2 % (11.5-14.5) Platelet Count 100 x10^3/uL (140-400) Neutrophils (%) (Auto) 81 % (31-73) Lymphocytes (%) (Auto) 13 % (24-48) Monocytes (%) (Auto) 6 % (0-9) Eosinophils (%) (Auto) 0 % (0-3) Basophils (%) (Auto) 0 % (0-3) Neutrophils # (Auto) 5.4 x10^3/uL (1.8-7.7) Lymphocytes # (Auto) 0.8 x10^3/uL (1.0-4.8) Monocytes # (Auto) 0.4 x10^3/uL (0.0-1.1) Eosinophils # (Auto) 0.0 x10^3/uL (0.0-0.7) Basophils # (Auto) 0.0 x10^3/uL (0.0-0.2) Sodium Level 143 mmol/L (136-145) Potassium Level 3.2 mmol/L (3.5-5.1) Chloride Level 106 mmol/L (98-107) Carbon Dioxide Level 32 mmol/L (21-32) Anion Gap 5 (6-14) Blood Urea Nitrogen 27 mg/dL (8-26) Creatinine 1.2 mg/dL (0.7-1.3) Estimated GFR (Cockcroft-Gault) 58.7 Glucose Level 100 mg/dL (70-99) Calcium Level 7.8 mg/dL (8.5-10.1) Phosphorus Level 2.9 mg/dL (2.6-4.7) Magnesium Level 1.9 mg/dL (1.8-2.4) Assessment and Plan Assessmemt and Plan Problems Medical Problems: (1) Shortness of breath Status: Acute (2) Viral syndrome Status: Acute Comment Review of Relevant I have reviewed the following items jensen (where applicable) has been applied. Medications: Current Medications Medications (Trade) Dose Ordered Sig/Kaylie Route PRN Reason Start Time Stop Time Status Last Admin Dose Admin Ceftriaxone Sodium (Rocephin) 1 gm Q24H IVP 05/08/20 17:00 05/08/20 20:54 Azithromycin 500 mg/Sodium Chloride 250 ml @ 250 mls/hr Q24H IV 05/08/20 21:00 05/08/20 20:55 Enoxaparin Sodium (Lovenox 30mg Syringe) 30 mg 1X ONCE SQ 05/08/20 15:45 05/08/20 15:46 DC 05/08/20 18:14 Acetaminophen (Tylenol Supp) 650 mg PRN Q6HRS PRN AR MILD PAIN / TEMP > 100.3'F 05/09/20 00:00 05/09/20 11:09 Morphine Sulfate (Morphine Sulfate) 2 mg PRN Q2HR PRN IV SEVERE PAIN 7-10 05/09/20 03:30 05/09/20 03:35 Sodium Chloride 1,000 ml @ 75 mls/hr [id number] IV 05/09/20 10:00 05/09/20 11:08 Potassium Chloride/Water 100 ml @ 100 mls/hr Q1H IV 05/09/20 11:00 05/09/20 14:59 05/09/20 12:34 Justifications for Admission Other Justification Pneumonia LETY MONET MD May 09, 2020 14:32
[2020-05-09] MEDS: IV DEXTROSE 5 %-0.45 % NACL 1,000 ML IV SCH (14:33)
[2020-05-09 15:01] VITALS: BP 128/99
[2020-05-09 15:38] LABS: BILIRUBIN,URINE NEGATIVE (NEG); CLARITY,URINE CLEAR; COLOR,URINE YELLOW; NITRITE,URINE NEGATIVE (NEG); PH,URINE 5.5 (<5.0-8.0); PROTEIN,URINE 30 mg/dL (NEG-TRACE)
[2020-05-09 15:55] LABS: AMORPHOUS SEDIMENT,UR PRESENT /HPF; BACTERIA,URINE 0 /HPF (0-FEW); HYALINE CASTS, URINE OCCASIONAL /HPF; RBC,URINE 0 /HPF (0-2); WBC,URINE 0 /HPF (0-4)
[2020-05-09] MEDS: ENOXAPARIN 40 MG/0.4 ML SYRINGE. SQ SCH (16:21)
[2020-05-09] MEDS: cefTRIAXone IV Push 1 GM VIAL. IVP SCH (16:21)
[2020-05-09 19:00] VITALS: BP 132/98
[2020-05-09] MEDS: AZITHROMYCIN 500 MG in IV NORMAL SALINE 250ML 250 ML IV SCH (20:31)
[2020-05-09 23:00] VITALS: BP 141/66
[2020-05-10 03:00] VITALS: BP 134/99
[2020-05-10 07:18] VITALS: BP 151/109
[2020-05-10 11:15] VITALS: BP 142/78
--- NOTE | 2020-05-10 11:18 | PDOC ---
[employer] PROGRESS NOTE Date of Service DOS: DATE: 05/10/20 TIME: 11:15 Chief Complaint Chief Complaint Acute encephalopathy NOS Concern for CAP Investigation for COVID-19 We will start on D5 half NS at 50 Admit to medicine for further management COVID-19 pending Continue empiric IV antibiotics IV 6 mg dexamethasone Daily if Covid test is positive Pending blood cultures Lovenox for DVT prophylaxis Protonix GI prophylaxis ADA diet Full code Discussed with RN and SW Disposition inpatient management as above Surrogate decision maker is the unknown History of Present Illness History of Present Illness 05/10/2020 No acute events overnight. Patient had a T-max of 100.8. Continues to be confused which is likely his baseline. Patient's chart, labs, images were reviewed and discussed with RN. Patient saturating 93% on 3 L nasal cannula. 05/09/2020 No acute events overnight. Patient continues to be demented and confused. 75 year old male with a complicated past medical history which includes CAD, CHF, hypertension, prior [place] now presents emergency department from her senior care with her fever and failure to thrive. Patient reports [place] no significant report was given. According to EMS patient noted to not be eating or drinking for approximately 3 days. Patient noted to have a fever of 100.6 today. When I asked the patient if he is having any symptoms he denies any chest pain, shortness of breath, cough, dizziness or lightheadedness but only appears oriented x2. Vitals/I&O Vitals/I&O: Vital Signs Date Time Temp Pulse Resp B/P (MAP) Pulse Ox O2 Delivery O2 Flow Rate FiO2 05/10/20 08:00 Nasal Cannula 3.0 05/10/20 07:18 98.6 86 18 151/109 (123) 93 98.6 I & O 05/09/20 05/09/20 05/10/20 15:00 23:00 07:00 Intake Total 350 ml 200 ml 0 ml Output Total 550 ml Balance 350 ml 200 ml -550 ml Physical Exam Lungs: Clear Labs Labs: Laboratory Tests Test 05/09/20 15:15 Urine Collection Type Unknown Urine Color Yellow Urine Clarity Clear Urine pH 5.5 (<5.0-8.0) Urine Specific [place] 1.020 (1.000-1.030) Urine Protein 30 mg/dL (NEG-TRACE) Urine Glucose (UA) Negative mg/dL (NEG) Urine Ketones (Stick) 15 mg/dL (NEG) Urine Blood Trace (NEG) Urine Nitrite Negative (NEG) Urine Bilirubin Negative (NEG) Urine Urobilinogen Dipstick 1.0 mg/dL (0.2 mg/dL) Urine Leukocyte Esterase Negative (NEG) Urine RBC 0 /HPF (0-2) Urine WBC 0 /HPF (0-4) Urine Amorphous Sediment Present /HPF Urine Bacteria 0 /HPF (0-FEW) Urine Hyaline Casts Occasional /HPF Urine Mucus Mod /LPF Assessment and Plan Assessmemt and Plan Problems Medical Problems: (1) Shortness of breath Status: Acute (2) Viral syndrome Status: Acute Comment Review of Relevant I have reviewed the following items jensen (where applicable) has been applied. Medications: Current Medications Medications (Trade) Dose Ordered Sig/Kaylie Route PRN Reason Start Time Stop Time Status Last Admin Dose Admin Dextrose/Sodium Chloride 1,000 ml @ 50 mls/hr Q20H IV 05/09/20 14:30 05/09/20 14:33 Enoxaparin Sodium (Lovenox 40mg Syringe) 40 mg Q24H SQ 05/09/20 16:00 05/09/20 16:21 Potassium Chloride/Water 100 ml @ 100 mls/hr Q1H IV 05/09/20 16:30 05/09/20 20:29 DC 05/09/20 20:30 Justifications for Admission Other Justification Pneumonia LETY MONET MD May 10, 2020 11:17
[2020-05-10 12:10] LABS: BASO % 0 % (0-3); EOS % 0 % (0-3); HEMOGLOBIN 10.3 g/dL (13.0-17.5); LYMPH # 0.5 x10^3/uL (1.0-4.8); LYMPH % 11 % (24-48); MEAN CORPUSCULAR HEMOGLOBIN 30 pg (25-35); MEAN CORPUSCULAR HGB CONC 34 g/dL (31-37); MEAN CORPUSCULAR VOLUME 88 fL (79-100); MONO # 0.3 x10^3/uL (0.0-1.1); MONO % 6 % (0-9); NEUT % 83 % (31-73); PLATELET COUNT 107 x10^3/uL (140-400); RED CELL DISTRIBUTION WIDTH 15.3 % (11.5-14.5); WHITE BLOOD COUNT 4.8 x10^3/uL (4.0-11.0)
[2020-05-10 12:29] LABS: CALCIUM 7.8 mg/dL (8.5-10.1); CREATININE 0.9 mg/dL (0.7-1.3); GFR 81.8; MAGNESIUM 1.7 mg/dL (1.8-2.4); POTASSIUM 3.3 mmol/L (3.5-5.1)
[2020-05-10] MEDS: IV DEXTROSE 5 %-0.45 % NACL 1,000 ML IV SCH (12:43)
[2020-05-10] MEDS ORDERED: ELECTROLYTE (NON-ICU) PROTOCOL. MC PRN (13:15)
[2020-05-10] MEDS: POTASSIUM CHLORIDE 10MEQ 100 ML IV SCH ×4 (13:47→17:00)
[2020-05-10] MEDS ORDERED: MAGNESIUM SULFATE 2GM 50 ML IV SCH (14:00)
[2020-05-10 15:14] VITALS: BP 118/85
[2020-05-10] MEDS: cefTRIAXone IV Push 1 GM VIAL. IVP SCH (15:54)
[2020-05-10] MEDS: ENOXAPARIN 40 MG/0.4 ML SYRINGE. SQ SCH (15:54)
[2020-05-10 19:00] VITALS: BP 169/76
[2020-05-10] MEDS: AZITHROMYCIN 500 MG in IV NORMAL SALINE 250ML 250 ML IV SCH (21:34)
[2020-05-10 23:00] VITALS: BP 144/78
[2020-05-11 03:00] VITALS: BP 132/66
[2020-05-11] MEDS: MORPHINE SULFATE 2 MG/ML VIAL. IV PRN ×3 (05:55→12:11)
[2020-05-11 07:00] VITALS: BP 134/71
[2020-05-11] MEDS: IV DEXTROSE 5 %-0.45 % NACL 1,000 ML IV SCH (08:31)
--- NOTE | 2020-05-11 10:22 | PDOC ---
[employer] PROGRESS NOTE Date of Service DOS: DATE: 05/11/20 TIME: 10:20 Chief Complaint Chief Complaint Acute encephalopathy NOS Concern for CAP Investigation for COVID-19 We will start on D5 half NS at 50 Admit to medicine for further management COVID-19 pending Continue empiric IV antibiotics IV 6 mg dexamethasone Daily if Covid test is positive Pending blood cultures Lovenox for DVT prophylaxis Protonix GI prophylaxis ADA diet Full code Discussed with RN and SW Disposition inpatient management as above Surrogate decision maker is the unknown History of Present Illness History of Present Illness 05/11/2020 No acute events overnight. Patient remains afebrile. No acute agitated episodes. Patient's chart, labs, images were reviewed and discussed with RN 05/10/2020 No acute events overnight. Patient had a T-max of 100.8. Continues to be confused which is likely his baseline. Patient's chart, labs, images were reviewed and discussed with RN. Patient saturating 93% on 3 L nasal cannula. 05/09/2020 No acute events overnight. Patient continues to be demented and confused. 75 year old male with a complicated past medical history which includes CAD, CHF, hypertension, prior [place] now presents emergency department from her senior living with her fever and failure to thrive. Patient reports [place] no significant report was given. According to EMS patient noted to not be eating or drinking for approximately 3 days. Patient noted to have a fever of 100.6 today. When I asked the patient if he is having any symptoms he denies any chest pain, shortness of breath, cough, dizziness or lightheadedness but only appears oriented x2. Vitals/I&O Vitals/I&O: Vital Signs Date Time Temp Pulse Resp B/P (MAP) Pulse Ox O2 Delivery O2 Flow Rate FiO2 05/11/20 09:11 98 Nasal Cannula 3.5 05/11/20 07:00 96.8 77 18 134/71 (92) 96.8 I & O 05/10/20 05/10/20 05/11/20 15:00 23:00 07:00 Intake Total 100 ml 300 ml 0 ml Output Total 700 ml 550 ml 750 ml Balance -600 ml -250 ml -750 ml Physical Exam Lungs: Clear Labs Labs: Laboratory Tests Test 05/10/20 11:25 White Blood Count 4.8 x10^3/uL (4.0-11.0) Red Blood Count 3.40 x10^6/uL (4.30-5.70) Hemoglobin 10.3 g/dL (13.0-17.5) Hematocrit 30.0 % (39.0-53.0) Mean Corpuscular Volume 88 fL (79-100) Mean Corpuscular Hemoglobin 30 pg (25-35) Mean Corpuscular Hemoglobin Concent 34 g/dL (31-37) Red Cell Distribution Width 15.3 % (11.5-14.5) Platelet Count 107 x10^3/uL (140-400) Neutrophils (%) (Auto) 83 % (31-73) Lymphocytes (%) (Auto) 11 % (24-48) Monocytes (%) (Auto) 6 % (0-9) Eosinophils (%) (Auto) 0 % (0-3) Basophils (%) (Auto) 0 % (0-3) Neutrophils # (Auto) 4.0 x10^3/uL (1.8-7.7) Lymphocytes # (Auto) 0.5 x10^3/uL (1.0-4.8) Monocytes # (Auto) 0.3 x10^3/uL (0.0-1.1) Eosinophils # (Auto) 0.0 x10^3/uL (0.0-0.7) Basophils # (Auto) 0.0 x10^3/uL (0.0-0.2) Sodium Level 144 mmol/L (136-145) Potassium Level 3.3 mmol/L (3.5-5.1) Chloride Level 106 mmol/L (98-107) Carbon Dioxide Level 30 mmol/L (21-32) Anion Gap 8 (6-14) Blood Urea Nitrogen 18 mg/dL (8-26) Creatinine 0.9 mg/dL (0.7-1.3) Estimated GFR (Cockcroft-Gault) 81.8 Glucose Level 129 mg/dL (70-99) Calcium Level 7.8 mg/dL (8.5-10.1) Magnesium Level 1.7 mg/dL (1.8-2.4) Assessment and Plan Assessmemt and Plan Problems Medical Problems: (1) Shortness of breath Status: Acute (2) Viral syndrome Status: Acute Comment Review of Relevant I have reviewed the following items jensen (where applicable) has been applied. Medications: Current Medications Medications (Trade) Dose Ordered Sig/Kaylie Route PRN Reason Start Time Stop Time Status Last Admin Dose Admin Magnesium Sulfate 50 ml @ 25 mls/hr Q24H IV 05/10/20 14:00 05/10/20 15:59 DC 05/10/20 14:19 Potassium Chloride/Water 100 ml @ 100 mls/hr Q1H IV 05/10/20 14:00 05/10/20 17:59 DC 05/10/20 17:00 Justifications for Admission Other Justification Pneumonia LETY MONET MD May 11, 2020 10:22
[2020-05-11 11:00] VITALS: BP 133/87
[2020-05-11 11:18] LABS: BASO % 0 % (0-3); EOS % 1 % (0-3); HEMATOCRIT 31.6 % (39.0-53.0); HEMOGLOBIN 10.6 g/dL (13.0-17.5); LYMPH # 0.8 x10^3/uL (1.0-4.8); LYMPH % 16 % (24-48); MEAN CORPUSCULAR HEMOGLOBIN 30 pg (25-35); MEAN CORPUSCULAR HGB CONC 34 g/dL (31-37); MEAN CORPUSCULAR VOLUME 88 fL (79-100); MONO # 0.4 x10^3/uL (0.0-1.1); MONO % 8 % (0-9); NEUT # 3.8 x10^3/uL (1.8-7.7); NEUT % 76 % (31-73); PLATELET COUNT 113 x10^3/uL (140-400); RED BLOOD COUNT 3.58 x10^6/uL (4.30-5.70); RED CELL DISTRIBUTION WIDTH 15.2 % (11.5-14.5)
[2020-05-11 11:32] LABS: CALCIUM 8.4 mg/dL (8.5-10.1); GFR 72.5; MAGNESIUM 2.1 mg/dL (1.8-2.4); POTASSIUM 3.5 mmol/L (3.5-5.1)
[2020-05-11 15:00] VITALS: BP 148/69
[2020-05-11] MEDS: ENOXAPARIN 40 MG/0.4 ML SYRINGE. SQ SCH (16:05)
[2020-05-11] MEDS: cefTRIAXone IV Push 1 GM VIAL. IVP SCH (17:00)
[2020-05-11 19:00] VITALS: BP 150/79
[2020-05-11] MEDS: POTASSIUM CHLORIDE 10MEQ 100 ML IV SCH ×3 (19:48→21:38)
[2020-05-11] MEDS: AZITHROMYCIN 500 MG in IV NORMAL SALINE 250ML 250 ML IV SCH (21:38)
[2020-05-11 23:00] VITALS: BP 148/79
[2020-05-12] MEDS: POTASSIUM CHLORIDE 10MEQ 100 ML IV SCH (00:59)
[2020-05-12] MEDS: IV DEXTROSE 5 %-0.45 % NACL 1,000 ML IV SCH ×2 (02:30→22:30)
[2020-05-12 03:00] VITALS: BP 158/82
[2020-05-12 07:00] VITALS: BP 169/84
[2020-05-12 11:00] VITALS: BP 157/80
--- NOTE | 2020-05-12 12:48 | PDOC ---
[employer] PROGRESS NOTE Date of Service DOS: DATE: 05/12/20 TIME: 12:47 Chief Complaint Chief Complaint A/P: Acute encephalopathy NOS Acute hypoxic respiratory failure - wean O2 as tolerated. Steroids for COVID 19 HCAP - will cont antibiotics COVID-19 Falls Right Hip Pain - Right Intertrochanteric avulsion injury 2 months ago Dizziness Anxiety CHF CAD - s/p stents Hypertension Kidney Stones Colon resection Previous tobacco abuse. Admit to medicine for further management COVID-19 pending Continue empiric IV antibiotics IV 6 mg dexamethasone Daily if Covid test is positive Pending blood cultures Lovenox for DVT prophylaxis Protonix GI prophylaxis ADA diet Full code Discussed with RN and SW Disposition inpatient management as above Surrogate decision maker is the unknown History of Present Illness History of Present Illness Mr Hobbs is a 75 yo male with a complicated past medical history which inc ludes CAD, CHF, hypertension, prior [place], recent right hip fracture now presents emergency department from his [facility] with her fever and failure to thrive, had COVID 19 diagnosis on 05/02/2020. According to EMS patient noted to not be eating or drinking for approximately 3 days. Patient noted to have a fever of 100.6 day of admission. Denies any chest pain, shortness of breath, cough, dizziness or lightheadedness but only appears oriented x2. 05/09: No acute events overnight. Patient continues to be demented and confused. 05/10: No acute events overnight. Patient had a T-max of 100.8. Continues to be confused which is likely his baseline. Patient saturating 93% on 3 L nasal cannula. 05/11: No acute events overnight. Patient remains afebrile. No acute agitated episodes. Patient's chart, labs, images were reviewed and discussed with RN Afebrile overnight requiring 3.5 L nasal cannula oxygen. Oriented to person. COVID 19 repeat positive. Has catheter in place for urination. Working with PT/OT. C/o lower back pain. Vitals/I&O Vitals/I&O: Vital Signs Date Time Temp Pulse Resp B/P (MAP) Pulse Ox O2 Delivery O2 Flow Rate FiO2 05/12/20 11:00 98.5 72 20 157/80 (105) 96 Nasal Cannula 3.5 98.5 I & O 05/11/20 05/11/20 05/12/20 15:00 23:00 07:00 Intake Total 0 ml 0 ml Output Total 600 ml 400 ml Balance -600 ml -400 ml Physical Exam General: Alert, Cooperative Lungs: Clear Assessment and Plan Assessmemt and Plan Problems Medical Problems: (1) Shortness of breath Status: Acute (2) Viral syndrome Status: Acute Comment Review of Relevant I have reviewed the following items jensen (where applicable) has been applied. Medications: Current Medications Medications (Trade) Dose Ordered Sig/Kaylie Route PRN Reason Start Time Stop Time Status Last Admin Dose Admin Potassium Chloride/Water 100 ml @ 100 mls/hr Q1H IV 05/11/20 19:00 05/11/20 22:59 DC 05/12/20 00:59 Justifications for Admission Other Justification Pneumonia DINAH CRAFT MD May 12, 2020 12:48
[2020-05-12 13:38] LABS: CALCIUM 8.1 mg/dL (8.5-10.1); GFR 72.5
[2020-05-12 15:00] VITALS: BP 140/87
[2020-05-12] MEDS ORDERED: DEXAMETHASONE SOD PHOS 4 MG/ML VIAL IVP ONE (16:00)
[2020-05-12] MEDS: LIDOCAINE (700MG/PATCH) PATCH. TD SCH (16:00)
[2020-05-12] MEDS: PANTOPRAZOLE 40 MG TABLET.DR. PO SCH (16:30)
[2020-05-12] MEDS: GABAPENTIN 300 MG CAPSULE. PO SCH ×2 (16:30→21:00)
[2020-05-12] MEDS: ENOXAPARIN 40 MG/0.4 ML SYRINGE. SQ SCH (16:52)
[2020-05-12] MEDS: cefTRIAXone IV Push 1 GM VIAL. IVP SCH (16:54)
--- NOTE | 2020-05-12 17:05 | NUR ---
SW following for discharge planning. Spoke with RN and reviewed chart. Pt COVID positive, NPO, IV Rocephin, 3.5l 02. SW phoned and faxed clinicals to [facility] for update. Pt resides in LTC. SW following.
[2020-05-12 19:30] VITALS: BP 131/75
[2020-05-12] MEDS: ATORVASTATIN CALCIUM 40 MG TABLET. PO SCH (21:00)
[2020-05-12] MEDS: PATCH REMOVAL. MC SCH (21:00)
[2020-05-12] MEDS: DOCUSATE SODIUM 100 MG CAPSULE. PO SCH (21:00)
[2020-05-12] MEDS: PYRIDOXINE 50 MG TABLET. PO SCH (21:00)
[2020-05-12] MEDS: FLUDROCORTISONE 0.1 MG TABLET PO SCH (21:00)
[2020-05-12 23:00] VITALS: BP 145/68
[2020-05-13 03:12] VITALS: BP 141/85
[2020-05-13 07:00] VITALS: BP 154/89
[2020-05-13] MEDS: DOCUSATE SODIUM 100 MG CAPSULE. PO SCH ×3 (09:00→21:22)
[2020-05-13] MEDS: THIAMINE 100 MG TABLET. PO SCH (09:00)
[2020-05-13] MEDS: FOLIC ACID 1 MG TABLET. PO SCH (09:00)
[2020-05-13] MEDS: GABAPENTIN 300 MG CAPSULE. PO SCH ×4 (09:00→21:22)
[2020-05-13] MEDS: PYRIDOXINE 50 MG TABLET. PO SCH ×3 (09:00→21:22)
[2020-05-13] MEDS: FLUDROCORTISONE 0.1 MG TABLET PO SCH ×3 (09:00→21:22)
[2020-05-13] MEDS: POLYETHYLENE GLYCOL 3350 17 GM PACKET. PO SCH (09:00)
[2020-05-13] MEDS: CYANOCOBALAMIN (VITAMIN B-12) 1,000 MCG TABLET. PO SCH (09:00)
[2020-05-13] MEDS: ASPIRIN ENTERIC COATED 81 MG TABLET.DR. PO SCH (09:00)
[2020-05-13] MEDS: TAMSULOSIN 0.4 MG CAP.ER.24H. PO SCH (09:00)
[2020-05-13] MEDS: PANTOPRAZOLE 40 MG TABLET.DR. PO SCH (09:00)
[2020-05-13] MEDS: AMIODARONE HCL 200 MG TABLET. PO SCH (09:00)
[2020-05-13 11:00] VITALS: BP 157/91
[2020-05-13] MEDS: LIDOCAINE (700MG/PATCH) PATCH. TD SCH (12:54)
[2020-05-13] MEDS: AMINO AC 3%/ELECTROLYTE/GLYCER 1,000 ML IV SCH (12:54)
--- NOTE | 2020-05-13 12:56 | PDOC ---
[employer] PROGRESS NOTE Date of Service DOS: DATE: 05/13/20 TIME: 12:55 Chief Complaint Chief Complaint A/P: Acute encephalopathy NOS Acute hypoxic respiratory failure - wean O2 as tolerated. Steroids for COVID 19 HCAP - will cont antibiotics COVID-19 Falls Right Hip Pain - Right Intertrochanteric avulsion injury 2 months ago Dizziness Anxiety CHF CAD - s/p stents Hypertension Kidney Stones Colon resection Previous tobacco abuse. Admit to medicine for further management COVID-19 pending Continue empiric IV antibiotics IV 6 mg dexamethasone Daily if Covid test is positive Pending blood cultures Lovenox for DVT prophylaxis Protonix GI prophylaxis ADA diet Full code Discussed with RN and SW Disposition inpatient management as above Surrogate decision maker is the unknown History of Present Illness History of Present Illness Mr Hobbs is a 75 yo male with a complicated past medical history which inc ludes CAD, CHF, hypertension, prior [place], recent right hip fracture now presents emergency department from his [facility] with her fever and failure to thrive, had COVID 19 diagnosis on 05/02/2020. According to EMS patient noted to not be eating or drinking for approximately 3 days. Patient noted to have a fever of 100.6 day of admission. Denies any chest pain, shortness of breath, cough, dizziness or lightheadedness but only appears oriented x2. 05/09: No acute events overnight. Patient continues to be demented and confused. 05/10: No acute events overnight. Patient had a T-max of 100.8. Continues to be confused which is likely his baseline. Patient saturating 93% on 3 L nasal cannula. 05/11: No acute events overnight. Patient remains afebrile. No acute agitated episodes. Patient's chart, labs, images were reviewed and discussed with RN 05/12: Afebrile overnight requiring 3.5 L nasal cannula oxygen. Oriented to person. COVID 19 repeat positive. Has catheter in place for urination. Working with PT/OT. C/o lower back pain. Afebrile. Still requiring O2. On zosyn. Back pain improved. Still confused. Vitals/I&O Vitals/I&O: Vital Signs Date Time Temp Pulse Resp B/P (MAP) Pulse Ox O2 Delivery O2 Flow Rate FiO2 05/13/20 11:00 97.0 77 22 157/91 (113) 95 Nasal Cannula 2.5 97.0 I & O 1/4/21 1/4/21 1/5/21 15:00 23:00 07:00 Intake Total 0 ml 0 ml 0 ml Output Total 600 ml 1200 ml 400 ml Balance -600 ml -1200 ml -400 ml Physical Exam General: Alert, Cooperative Lungs: Clear Labs Labs: Laboratory Tests Test 05/12/20 13:10 Sodium Level 141 mmol/L (136-145) Potassium Level 4.0 mmol/L (3.5-5.1) Chloride Level 105 mmol/L (98-107) Carbon Dioxide Level 29 mmol/L (21-32) Anion Gap 7 (6-14) Blood Urea Nitrogen 16 mg/dL (8-26) Creatinine 1.0 mg/dL (0.7-1.3) Estimated GFR (Cockcroft-Gault) 72.5 Glucose Level 109 mg/dL (70-99) Calcium Level 8.1 mg/dL (8.5-10.1) Magnesium Level 1.9 mg/dL (1.8-2.4) Assessment and Plan Assessmemt and Plan Problems Medical Problems: (1) Shortness of breath Status: Acute (2) Viral syndrome Status: Acute Comment Review of Relevant I have reviewed the following items jensen (where applicable) has been applied. Medications: Current Medications Medications (Trade) Dose Ordered Sig/Kaylie Route PRN Reason Start Time Stop Time Status Last Admin Dose Admin Dexamethasone Sodium Phosphate (Decadron) 6 mg DAILY ONCE IVP 05/12/20 16:00 05/12/20 16:20 DC 05/12/20 16:49 Justifications for Admission Other Justification Pneumonia DINAH CRAFT MD May 13, 2020 12:56
[2020-05-13 15:00] VITALS: BP 133/85
[2020-05-13] MEDS: ENOXAPARIN 40 MG/0.4 ML SYRINGE. SQ SCH (16:00)
[2020-05-13] MEDS: cefTRIAXone IV Push 1 GM VIAL. IVP SCH (16:41)
--- NOTE | 2020-05-13 17:04 | NUR ---
SW following for discharge planning. Spoke with RN and reviewed chart. Pt down to 2.5l 02. Working to advance pt's diet. Discharge plan remains back to [facility] when stable. SW following.
[2020-05-13 19:00] VITALS: BP 135/68
[2020-05-13] MEDS: ATORVASTATIN CALCIUM 40 MG TABLET. PO SCH ×2 (21:00→21:22)
[2020-05-13] MEDS: PATCH REMOVAL. MC SCH (21:00)
[2020-05-13 23:47] VITALS: BP 149/80
[2020-05-14] MEDS: AMINO AC 3%/ELECTROLYTE/GLYCER 1,000 ML IV SCH ×2 (02:00→17:16)
[2020-05-14 03:25] VITALS: BP 159/78
[2020-05-14 07:00] VITALS: BP 176/89
[2020-05-14] MEDS: ASPIRIN ENTERIC COATED 81 MG TABLET.DR. PO SCH ×2 (07:57→09:00)
[2020-05-14] MEDS: FOLIC ACID 1 MG TABLET. PO SCH ×2 (07:57→09:00)
[2020-05-14] MEDS: DOCUSATE SODIUM 100 MG CAPSULE. PO SCH ×4 (07:57→22:08)
[2020-05-14] MEDS: CYANOCOBALAMIN (VITAMIN B-12) 1,000 MCG TABLET. PO SCH ×2 (07:57→09:00)
[2020-05-14] MEDS: THIAMINE 100 MG TABLET. PO SCH ×2 (07:57→09:00)
[2020-05-14] MEDS: FLUDROCORTISONE 0.1 MG TABLET PO SCH ×4 (07:58→22:09)
[2020-05-14] MEDS: PANTOPRAZOLE 40 MG TABLET.DR. PO SCH ×2 (07:58→09:00)
[2020-05-14] MEDS: PYRIDOXINE 50 MG TABLET. PO SCH ×4 (07:58→22:08)
[2020-05-14] MEDS: TAMSULOSIN 0.4 MG CAP.ER.24H. PO SCH ×2 (07:58→09:00)
[2020-05-14] MEDS: GABAPENTIN 300 MG CAPSULE. PO SCH ×5 (07:58→22:08)
[2020-05-14] MEDS: POLYETHYLENE GLYCOL 3350 17 GM PACKET. PO SCH ×2 (07:59→09:00)
[2020-05-14] MEDS: AMIODARONE HCL 200 MG TABLET. PO SCH ×2 (07:59→09:00)
[2020-05-14] MEDS: LIDOCAINE (700MG/PATCH) PATCH. TD SCH (08:00)
[2020-05-14 10:39] LABS: CALCIUM 8.4 mg/dL (8.5-10.1); CREATININE 1.1 mg/dL (0.7-1.3); GFR 64.9; POTASSIUM 3.5 mmol/L (3.5-5.1)
[2020-05-14 11:00] VITALS: BP 151/85
--- NOTE | 2020-05-14 11:25 | NUR ---
SW following for discharge planning. Spoke with RN and reviewed chart. Phoned and faxed updated clinicals to Elaine at [facility]. Pt on room air and diet advanced to mechanical soft. Discharge plan remains back to [facility] when stable. Possible discharge tomorrow, 05/15. SW following.
--- NOTE | 2020-05-14 13:03 | PDOC ---
[employer] PROGRESS NOTE Date of Service DOS: DATE: 05/14/20 TIME: 13:01 Chief Complaint Chief Complaint A/P: Acute encephalopathy NOS Acute hypoxic respiratory failure - wean O2 as tolerated. Steroids for COVID 19 HCAP - will cont antibiotics COVID-19 Falls Right Hip Pain - Right Intertrochanteric avulsion injury 2 months ago Dizziness Anxiety CHF CAD - s/p stents Hypertension Kidney Stones Colon resection Previous tobacco abuse. Admit to medicine for further management COVID-19 pending Continue empiric IV antibiotics IV 6 mg dexamethasone Daily if Covid test is positive Pending blood cultures Lovenox for DVT prophylaxis Protonix GI prophylaxis ADA diet Full code Discussed with RN and SW Disposition inpatient management as above Surrogate decision maker is the unknown History of Present Illness History of Present Illness Mr Hobbs is a 75 yo male with a complicated past medical history which inc ludes CAD, CHF, hypertension, prior [place], recent right hip fracture now presents emergency department from his [facility] with her fever and failure to thrive, had COVID 19 diagnosis on 05/02/2020. According to EMS patient noted to not be eating or drinking for approximately 3 days. Patient noted to have a fever of 100.6 day of admission. Denies any chest pain, shortness of breath, cough, dizziness or lightheadedness but only appears oriented x2. 05/09: No acute events overnight. Patient continues to be demented and confused. 05/10: No acute events overnight. Patient had a T-max of 100.8. Continues to be confused which is likely his baseline. Patient saturating 93% on 3 L nasal cannula. 05/11: No acute events overnight. Patient remains afebrile. No acute agitated episodes. Patient's chart, labs, images were reviewed and discussed with RN 05/12: Afebrile overnight requiring 3.5 L nasal cannula oxygen. Oriented to person. COVID 19 repeat positive. Has catheter in place for urination. Working with PT/OT. C/o lower back pain. 05/13: Afebrile. Still requiring O2. On zosyn. Back pain improved. Still confused. Refusing meds and refusing food even after getting mashed potatoes he requests Afebrile. On minimal O2. Still having pain. Pulled out IV. Still refusing meds, IV, and food. On redirection is willing to have IV reinserted and will eat mashed potatoes Vitals/I&O Vitals/I&O: Vital Signs Date Time Temp Pulse Resp B/P (MAP) Pulse Ox O2 Delivery O2 Flow Rate FiO2 05/14/20 11:00 97.0 73 18 151/85 (107) 91 Room Air 97.0 05/13/20 15:00 2.5 I & O 05/13/20 05/13/20 05/14/20 15:00 23:00 07:00 Intake Total 0 ml 0 ml 0 ml Output Total 600 ml 500 ml Balance 0 ml -600 ml -500 ml Physical Exam General: Alert, Cooperative Lungs: Clear Labs Labs: Laboratory Tests Test 05/14/20 09:05 Sodium Level 139 mmol/L (136-145) Potassium Level 3.5 mmol/L (3.5-5.1) Chloride Level 105 mmol/L (98-107) Carbon Dioxide Level 27 mmol/L (21-32) Anion Gap 7 (6-14) Blood Urea Nitrogen 25 mg/dL (8-26) Creatinine 1.1 mg/dL (0.7-1.3) Estimated GFR (Cockcroft-Gault) 64.9 Glucose Level 83 mg/dL (70-99) Calcium Level 8.4 mg/dL (8.5-10.1) Assessment and Plan Assessmemt and Plan Problems Medical Problems: (1) Shortness of breath Status: Acute (2) Viral syndrome Status: Acute Comment Review of Relevant I have reviewed the following items jensen (where applicable) has been applied. Medications: Current Medications Medications (Trade) Dose Ordered Sig/Kaylie Route PRN Reason Start Time Stop Time Status Last Admin Dose Admin Amino Acids/ Glycerin/ Electrolytes 1,000 ml @ 80 mls/hr [id number] IV 05/13/20 13:30 05/13/20 12:54 Justifications for Admission Other Justification Pneumonia DINAH CRAFT MD May 14, 2020 13:03
[2020-05-14] MEDS ORDERED: MORPHINE SULFATE 2 MG/ML VIAL. IM PRN (13:15)
--- NOTE | 2020-05-14 14:14 | NUR ---
The patient refuses to take his meds, says "I don't want it." He's been complaining of pain, this nurse offered tylenol however he refused. Discussed with Dr. Murrieta and new orders for IM meds acknowledged.
[2020-05-14 15:00] VITALS: BP 157/83
[2020-05-14] MEDS ORDERED: cefTRIAXone IM 1 GM VIAL IM SCH (16:00)
[2020-05-14] MEDS: ENOXAPARIN 40 MG/0.4 ML SYRINGE. SQ SCH (17:15)
--- NOTE | 2020-05-14 17:47 | NUR ---
IV access placed by anesthesia at 1650, Dr. Murrieta was notified. IV meds resumed.
[2020-05-14] MEDS: cefTRIAXone IV Push 1 GM VIAL. IVP SCH (18:08)
[2020-05-14 20:51] VITALS: BP 142/83
[2020-05-14] MEDS: PATCH REMOVAL. MC SCH (21:00)
[2020-05-14] MEDS: ATORVASTATIN CALCIUM 40 MG TABLET. PO SCH ×2 (21:00→22:09)
[2020-05-14 23:54] VITALS: BP 170/94
[2020-05-15 03:00] VITALS: BP 148/83
[2020-05-15] MEDS: AMINO AC 3%/ELECTROLYTE/GLYCER 1,000 ML IV SCH ×2 (04:36→15:56)
[2020-05-15] MEDS: MORPHINE SULFATE 2 MG/ML VIAL. IV PRN (04:38)
[2020-05-15 07:45] VITALS: BP 164/92
[2020-05-15] MEDS: LIDOCAINE (700MG/PATCH) PATCH. TD SCH (08:27)
[2020-05-15] MEDS: GABAPENTIN 300 MG CAPSULE. PO SCH ×3 (09:00→21:00)
[2020-05-15] MEDS: PANTOPRAZOLE 40 MG TABLET.DR. PO SCH (09:00)
[2020-05-15] MEDS: DOCUSATE SODIUM 100 MG CAPSULE. PO SCH ×2 (09:00→21:00)
[2020-05-15] MEDS: FOLIC ACID 1 MG TABLET. PO SCH (09:00)
[2020-05-15] MEDS: ASPIRIN ENTERIC COATED 81 MG TABLET.DR. PO SCH (09:00)
[2020-05-15] MEDS: PYRIDOXINE 50 MG TABLET. PO SCH ×2 (09:00→21:00)
[2020-05-15] MEDS: TAMSULOSIN 0.4 MG CAP.ER.24H. PO SCH (09:00)
[2020-05-15] MEDS: POLYETHYLENE GLYCOL 3350 17 GM PACKET. PO SCH (09:00)
[2020-05-15] MEDS: FLUDROCORTISONE 0.1 MG TABLET PO SCH ×2 (09:00→21:00)
[2020-05-15] MEDS: THIAMINE 100 MG TABLET. PO SCH (09:00)
[2020-05-15] MEDS: CYANOCOBALAMIN (VITAMIN B-12) 1,000 MCG TABLET. PO SCH (09:00)
[2020-05-15] MEDS: AMIODARONE HCL 200 MG TABLET. PO SCH (09:00)
[2020-05-15 10:39] VITALS: BP 148/87
--- NOTE | 2020-05-15 13:23 | PDOC ---
[employer] PROGRESS NOTE Date of Service DOS: DATE: 05/15/20 TIME: 13:22 Chief Complaint Chief Complaint A/P: Acute encephalopathy NOS Acute hypoxic respiratory failure - wean O2 as tolerated. Steroids for COVID 19 HCAP - will cont antibiotics COVID-19 Falls Right Hip Pain - Right Intertrochanteric avulsion injury 2 months ago Dizziness Anxiety CHF CAD - s/p stents Hypertension Kidney Stones Colon resection Previous tobacco abuse. Admit to medicine for further management COVID-19 pending Continue empiric IV antibiotics IV 6 mg dexamethasone Daily if Covid test is positive Pending blood cultures Lovenox for DVT prophylaxis Protonix GI prophylaxis ADA diet Full code Discussed with RN and SW Disposition inpatient management as above Surrogate decision maker is the unknown History of Present Illness History of Present Illness Mr Hobbs is a 75 yo male with a complicated past medical history which inc ludes CAD, CHF, hypertension, prior [place], recent right hip fracture now presents emergency department from his retirement with her fever and failure to thrive, had COVID 19 diagnosis on 05/02/2020. According to EMS patient noted to not be eating or drinking for approximately 3 days. Patient noted to have a fever of 100.6 day of admission. Denies any chest pain, shortness of breath, cough, dizziness or lightheadedness but only appears oriented x2. 05/09: No acute events overnight. Patient continues to be demented and confused. 05/10: No acute events overnight. Patient had a T-max of 100.8. Continues to be confused which is likely his baseline. Patient saturating 93% on 3 L nasal cannula. 05/11: No acute events overnight. Patient remains afebrile. No acute agitated episodes. Patient's chart, labs, images were reviewed and discussed with RN 05/12: Afebrile overnight requiring 3.5 L nasal cannula oxygen. Oriented to person. COVID 19 repeat positive. Has catheter in place for urination. Working with PT/OT. C/o lower back pain. 05/13: Afebrile. Still requiring O2. On zosyn. Back pain improved. Still confused. Refusing meds and refusing food even after getting mashed potatoes he requests 05/14: Afebrile. On minimal O2. Still having pain. Pulled out IV. Still refusing meds, IV, and food. On redirection is willing to have IV reinserted and will eat mashed potatoes Afebrile. On 1L NCO2. Pain improved. IV reinserted per nursing, still refusing care and food at random. Vitals/I&O Vitals/I&O: Vital Signs Date Time Temp Pulse Resp B/P (MAP) Pulse Ox O2 Delivery O2 Flow Rate FiO2 05/15/20 10:39 97.7 75 18 148/87 (107) 92 Room Air 97.7 I & O 05/14/20 05/14/20 05/15/20 15:00 23:00 07:00 Intake Total 0 ml 0 ml 0 ml Output Total 300 ml 400 ml Balance -300 ml -400 ml 0 ml Physical Exam General: Alert, Cooperative Lungs: Clear Assessment and Plan Assessmemt and Plan Problems Medical Problems: (1) Shortness of breath Status: Acute (2) Viral syndrome Status: Acute Comment Review of Relevant I have reviewed the following items jensen (where applicable) has been applied. Medications: Current Medications Medications (Trade) Dose Ordered Sig/Kaylie Route PRN Reason Start Time Stop Time Status Last Admin Dose Admin Ceftriaxone Sodium (Rocephin) 1 gm Q24H IVP 05/14/20 17:00 05/14/20 18:08 Morphine Sulfate (Morphine Sulfate) 2 mg PRN Q2HR PRN IV MODERATE TO SEVERE PAIN 05/14/20 17:00 05/15/20 04:38 Justifications for Admission Other Justification Pneumonia DINAH CRAFT MD May 15, 2020 13:23
[2020-05-15 15:09] VITALS: BP 115/75
[2020-05-15] MEDS: ENOXAPARIN 40 MG/0.4 ML SYRINGE. SQ SCH (15:56)
[2020-05-15] MEDS: cefTRIAXone IV Push 1 GM VIAL. IVP SCH (16:04)
--- NOTE | 2020-05-15 17:13 | NUR ---
SW following for discharge planning. Spoke with RN and reviewed chart. Discharge plan remains back to [facility] when stable. SW following.
[2020-05-15 19:00] VITALS: BP 177/86
[2020-05-15] MEDS: ATORVASTATIN CALCIUM 40 MG TABLET. PO SCH (21:00)
[2020-05-15] MEDS: PATCH REMOVAL. MC SCH (21:00)
[2020-05-15] MEDS: LACTOBACILLUS RHAMNOSUS GG 1 CAPSULE. PO SCH (21:00)
[2020-05-15 23:00] VITALS: BP 194/91
[2020-05-16 03:00] VITALS: BP 165/84
[2020-05-16] MEDS: AMINO AC 3%/ELECTROLYTE/GLYCER 1,000 ML IV SCH (05:00)
[2020-05-16] MEDS: MORPHINE SULFATE 2 MG/ML VIAL. IV PRN ×3 (05:02→12:02)
[2020-05-16 07:00] VITALS: BP 184/94
[2020-05-16 08:12] VITALS: BP 184/94
[2020-05-16] MEDS: LIDOCAINE (700MG/PATCH) PATCH. TD SCH (08:49)
[2020-05-16] MEDS: DOCUSATE SODIUM 100 MG CAPSULE. PO SCH (09:00)
[2020-05-16] MEDS: CYANOCOBALAMIN (VITAMIN B-12) 1,000 MCG TABLET. PO SCH (09:00)
[2020-05-16] MEDS: PANTOPRAZOLE 40 MG TABLET.DR. PO SCH (09:00)
[2020-05-16] MEDS: THIAMINE 100 MG TABLET. PO SCH (09:00)
[2020-05-16] MEDS: AMIODARONE HCL 200 MG TABLET. PO SCH (09:00)
[2020-05-16] MEDS: PYRIDOXINE 50 MG TABLET. PO SCH (09:00)
[2020-05-16] MEDS: LACTOBACILLUS RHAMNOSUS GG 1 CAPSULE. PO SCH (09:00)
[2020-05-16] MEDS: FOLIC ACID 1 MG TABLET. PO SCH (09:00)
[2020-05-16] MEDS: GABAPENTIN 300 MG CAPSULE. PO SCH ×2 (09:00→14:00)
[2020-05-16] MEDS: POLYETHYLENE GLYCOL 3350 17 GM PACKET. PO SCH (09:00)
[2020-05-16] MEDS: FLUDROCORTISONE 0.1 MG TABLET PO SCH (09:00)
[2020-05-16] MEDS: ASPIRIN ENTERIC COATED 81 MG TABLET.DR. PO SCH (09:00)
[2020-05-16] MEDS: TAMSULOSIN 0.4 MG CAP.ER.24H. PO SCH (09:00)
--- NOTE | 2020-05-16 10:54 | PDOC ---
[employer] PROGRESS NOTE Date of Service DOS: DATE: 05/16/20 TIME: 10:41 Chief Complaint Chief Complaint A/P: Acute encephalopathy - metabolic with HCAP, hypoxia Acute hypoxic respiratory failure - wean O2 as tolerated. Steroids for COVID 19 HCAP - will cont antibiotics COVID-19 Falls Right Hip Pain - Right Intertrochanteric avulsion injury 2 months ago Dizziness Anxiety CHF CAD - s/p stents Hypertension Kidney Stones Colon resection Previous tobacco abuse. Plan: COVID-19 treated Continue empiric IV antibiotics Lovenox for DVT prophylaxis Protonix GI prophylaxis ADA diet Full code Discussed with RN and SW Disposition inpatient management as above Surrogate decision maker is Natividad History of Present Illness History of Present Illness Mr Hobbs is a 75 yo male with a complicated past medical history which includes CAD, CHF, hypertension, prior [place], recent right hip fracture now presents emergency department from his [facility] with her fever and failure to thrive, had COVID 19 diagnosis on 05/02/2020. According to EMS patient noted to not be eating or drinking for approximately 3 days. Patient noted to have a fever of 100.6 day of admission. Denies any chest pain, shortness of breath, cough, dizziness or lightheadedness but only appears oriented x2. 05/09: No acute events overnight. Patient continues to be demented and confused. 05/10: No acute events overnight. Patient had a T-max of 100.8. Continues to be confused which is likely his baseline. Patient saturating 93% on 3 L nasal cannula. 05/11: No acute events overnight. Patient remains afebrile. No acute agitated episodes. Patient's chart, labs, images were reviewed and discussed with RN 05/12: Afebrile overnight requiring 3.5 L nasal cannula oxygen. Oriented to person. COVID 19 repeat positive. Has catheter in place for urination. Working with PT/OT. C/o lower back pain. 05/13: Afebrile. Still requiring O2. On zosyn. Back pain improved. Still confused. Refusing meds and refusing food even after getting mashed potatoes he requests 05/14: Afebrile. On minimal O2. Still having pain. Pulled out IV. Still refusing meds, IV, and food. On redirection is willing to have IV reinserted and will eat mashed potatoes 05/15: Afebrile. On 1L NCO2. Pain improved. IV reinserted per nursing, still refusing care and food at random. Afebrile. Still requiring nocturnal O2. On IV nutrition, antibiotics for HCAP. He is c/o back pain. Still not oriented. His primary caregiver, Natividad, notes he has severe dementia and acts like a 2 year old most the time and his family is estranged, his son is in [place]. Vitals/I&O Vitals/I&O: Vital Signs Date Time Temp Pulse Resp B/P (MAP) Pulse Ox O2 Delivery O2 Flow Rate FiO2 05/16/20 08:49 20 Room Air 05/16/20 07:00 98.8 78 184/94 (124) 93 98.8 I & O 05/15/20 05/15/20 05/16/20 14:59 22:59 06:59 Intake Total 0 ml 0 ml 0 ml Output Total 550 ml 125 ml 450 ml Balance -550 ml -125 ml -450 ml Physical Exam General: Alert, Cooperative Lungs: Clear Assessment and Plan Assessmemt and Plan Problems Medical Problems: (1) Shortness of breath Status: Acute (2) Viral syndrome Status: Acute Comment Review of Relevant I have reviewed the following items jensen (where applicable) has been applied. Justifications for Admission Other Justification Pneumonia DINAH CRATF MD May 16, 2020 10:54
[2020-05-16 11:00] VITALS: BP 161/88
[2020-05-16] MEDS ORDERED: DOXY100C2 PO (13:07)
--- NOTE | 2020-05-16 13:09 | SNU/HH DC ---
DISCHARGE ORDERS DISCHARGE INFORMATION: DISCHARGE DATE: May 16, 2020 FINAL DIAGNOSIS Problems Medical Problems: (1) Shortness of breath Status: Acute (2) Viral syndrome Status: Acute CONDITION ON DISCHARGE: Stable CODE STATUS: Code Status: DNR/DNI HOSPICE: HOSPICE: Yes HOSPICE EVAL & TREAT: Yes POST DISCHARGE ORDERS: ACTIVITY ORDERS: Activity as tolerated WEIGHT BEARING STATUS: As tolerated DIET AFTER DISCHARGE: Cardiac WOUND/INCISION CARE: No wound care needed CHECKS AFTER DISCHARGE: CHECKS AFTER DISCHARGE: Check blood press - daily TREATMENT/EQUIPMENT ORDERS: ADAPTIVE EQUIPMENT NEEDED: None DISCHARGE MEDICATIONS: Home Meds Active Scripts Doxycycline Hyclate (DOXYCYCLINE HYCLATE) 100 Mg Capsule, 1 CAP PO BID for pneumonia for 7 Days, #14 CAP Prov:DINAH CRAFT MD 05/16/20 Meclizine Hcl (MECLIZINE HCL) 25 Mg Tablet, 1 TAB PO TID for vertigo, #90 TAB Prov:NEW THOMSON MD 11/21/18 Pantoprazole Sodium (PROTONIX ) 40 Mg Tablet.dr, 1 TAB PO DAILY, #30 TAB 5 Refills Prov:NEW THOMSON MD 10/20/16 Reported Medications Cyclobenzaprine Hcl (CYCLOBENZAPRINE HCL) 5 Mg Tablet, 5 MG PO TID PRN for MUSCLE SPASMS, TAB 03/29/20 Potassium Chloride (KLOR-CON M20) 20 Meq Tab.er.prt, 20 MEQ PO DAILY for supplement, TAB.SR 03/29/20 Tamsulosin Hcl (FLOMAX) 0.4 Mg Cap.er.24h, 1 CAP PO DAILY for bladder control, #30 CAP 11 Refills 03/29/20 Gabapentin (GABAPENTIN) 300 Mg Capsule, 300 MG PO TID for NEUROGENIC PAIN, CAP 03/29/20 Pyridostigmine [place] (PYRIDOSTIGMINE BROMIDE) 60 Mg Tablet, 30 MG PO QID for muacle relax, TAB 11/15/18 Thiamine Mononitrate (VITAMIN B-1) 100 Mg Tablet, 100 MG PO DAILY, TAB 11/15/18 Pyridoxine Hcl (PYRIDOXINE HCL ) 25 Mg Tablet, 25 MG PO BID, TAB 11/15/18 Polyethylene Glycol 3350 (MIRALAX) 17 Gm Powd.pack, 1 PACKET PO DAILY, #30 PACKET 3 Refills 11/15/18 Midodrine Hcl (MIDODRINE HCL) 2.5 Mg Tablet, 2.5 MG PO TID, TAB 11/15/18 Melatonin (MELATONIN) 3 Mg Tablet, 5 MG PO HS, TAB 11/15/18 Folic Acid (FOLIC ACID) 1 Mg Tablet, 1 TAB PO DAILY, #90 TAB 1 Refill 11/15/18 Fludrocortisone Acetate (FLUDROCORTISONE ACETATE) 0.1 Mg Tablet, 0.1 MG PO BID for inflammation, TAB 11/15/18 Cyanocobalamin (Vitamin B-12) (VITAMIN B-12) 1,000 Mcg Tablet, 1000 MCG PO DAILY, TAB 11/15/18 Docusate Sodium (COLACE) 100 Mg Capsule, 1 CAP PO BID, #30 CAP 11/15/18 Atorvastatin Calcium (ATORVASTATIN CALCIUM) 40 Mg Tablet, 40 MG PO HS for FOR CHOLESTEROL, #30 TAB 0 Refills 11/15/18 Aspirin (ASPIR 81) 81 Mg Tablet.dr, 81 MG PO DAILY for aspirin, TAB 03/05/14 Discontinued Scripts Alprazolam (ALPRAZOLAM) 0.25 Mg Tablet, 0.25 MG PO PRN Q8HRS PRN for ANXIETY / AGITATION, #60 TAB Prov:NEW THOMSON MD 11/21/18 Amiodarone Hcl (AMIODARONE HCL) 200 Mg Tablet, 200 MG PO DAILY for heart for 30 Days, #30 TAB Prov:DAQUAN TANG MD 09/22/18 DINAH CRAFT MD May 16, 2020 13:08
--- NOTE | 2020-05-16 13:40 | PDOC3 ---
Discharge Summary Visit Information Date of Admission: May 08, 2020 Date of Discharge: May 16, 2020 Admitting Diagnosis: Acute hypoxic respiratory failure Final Diagnosis Problems Medical Problems: (1) Shortness of breath Status: Acute (2) Viral syndrome Status: Acute Brief Hospital Course Allergies Allergies Coded Allergies Type Severity Reaction Last Updated Verified Penicillins Allergy Intermediate 03/30/20 Yes hydrocodone Adverse Reaction Intermediate Nausea 11/15/18 Yes Vital Signs Vital Signs Date Time Temp Pulse Resp B/P (MAP) Pulse Ox O2 Delivery O2 Flow Rate FiO2 05/16/20 12:02 20 Room Air 05/16/20 11:00 98.2 76 161/88 (112) 96 98.2 Brief Hospital Course Mr Hobbs is a 75 yo male with a complicated past medical history which includes CAD, CHF, hypertension, prior [place], recent right hip fracture now presents emergency department from his halfway with her fever and failure t o thrive, had COVID 19 diagnosis on 05/02/2020. According to EMS patient noted to not be eating or drinking for approximately 3 days. Patient noted to have a fever of 100.6 day of admission. Denies any chest pain, shortness of breath, cough, dizziness or lightheadedness but only appears oriented x2. 05/09: No acute events overnight. Patient continues to be demented and confused. 05/10: No acute events overnight. Patient had a T-max of 100.8. Continues to be confused which is likely his baseline. Patient saturating 93% on 3 L nasal cannula. 05/11: No acute events overnight. Patient remains afebrile. No acute agitated episodes. Patient's chart, labs, images were reviewed and discussed with RN 05/12: Afebrile overnight requiring 3.5 L nasal cannula oxygen. Oriented to person. COVID 19 repeat positive. Has catheter in place for urination. Working with PT/OT. C/o lower back pain. 05/13: Afebrile. Still requiring O2. On zosyn. Back pain improved. Still confused. Refusing meds and refusing food even after getting mashed potatoes he requests 05/14: Afebrile. On minimal O2. Still having pain. Pulled out IV. Still refusing meds, IV, and food. On redirection is willing to have IV reinserted and will eat mashed potatoes 05/15: Afebrile. On 1L NCO2. Pain improved. IV reinserted per nursing, still refusing care and food at random. Afebrile. Still requiring nocturnal O2. On IV nutrition, antibiotics for HCAP. He is c/o back pain. Still not oriented. His primary caregiver, Natividad, notes he has severe dementia and acts like a 2 year old most the time and his family is estranged, his son is in [place]. After SW discussed with daughter Sherrell he has had a steady decline over the last several years particularly worse over the last year they have decided they would be appropriate for [facility]. Problem list: Acute encephalopathy - metabolic with HCAP, hypoxia Acute hypoxic respiratory failure - wean O2 as tolerated. Steroids for COVID 19 HCAP - will cont antibiotics COVID-19 Falls Right Hip Pain - Right Intertrochanteric avulsion injury 2 months ago Dizziness Anxiety CHF CAD - s/p stents Hypertension Kidney Stones Colon resection Previous tobacco abuse. Greater than 30 minutes spent on d/c Discharge Information Condition at Discharge: Stable Follow Up: Weeks (1) Disposition/Orders: D/C to Another Facility Scheduled Aspirin (Aspir 81) 81 Mg Tablet., 81 MG PO DAILY for aspirin, (Reported) Entered as Reported by: ROWAN MEZA on 03/05/14 0049 Last Action: Continued on 05/12/201604 by DINAH CRAFT MD Atorvastatin Calcium (Atorvastatin Calcium) 40 Mg Tablet, 40 MG PO HS for FOR CHOLESTEROL, #30 Ref 0 (Reported) Entered as Reported by: AVA NOONAN on 11/15/18837 Last Action: Continued on 05/12/201604 by DINAH CRAFT MD Cyanocobalamin (Vitamin B-12) (Vitamin B-12) 1,000 Mcg Tablet, 1,000 MCG PO DAILY, (Reported) Entered as Reported by: VAA NOONAN on 11/15/18837 Last Action: Continued on 05/12/201604 by DINAH CRAFT MD Docusate Sodium (Colace) 100 Mg Capsule, 1 CAP PO BID, #30 (Reported) Entered as Reported by: AVA NOONAN on 11/15/18837 Last Action: Continued on 05/12/201604 by DINAH CRAFT MD Doxycycline Hyclate (Doxycycline Hyclate) 100 Mg Capsule, 1 CAP PO BID for pneumonia for 7 Days, #14 Prescribed by: DINAH CRAFT MD on 05/16/20 1307 Fludrocortisone Acetate (Fludrocortisone Acetate) 0.1 Mg Tablet, 0.1 MG PO BID for inflammation, (Reported) Entered as Reported by: AVA NOONAN on 11/15/18837 Last Action: Continued on 05/12/20 160 by DINAH CRAFT MD Folic Acid (Folic Acid) 1 Mg Tablet, 1 TAB PO DAILY, #90 Ref 1 (Reported) Entered as Reported by: AVA NOONAN on 11/15/18837 Last Action: Continued on 05/12/20 160 by DINAH CRAFT MD Gabapentin (Gabapentin) 300 Mg Capsule, 300 MG PO TID for NEUROGENIC PAIN, (Reported) Entered as Reported by: Louann Ann on 03/29/20 1810 Last Action: Continued on 05/12/201604 by DINAH CRAFT MD Meclizine Hcl (Meclizine Hcl) 25 Mg Tablet, 1 TAB PO TID for vertigo, #90 Prescribed by: NEW THOMSON on 11/21/18 0928 Melatonin (Melatonin) 3 Mg Tablet, 5 MG PO HS, (Reported) Entered as Reported by: AVA NOONAN on 11/15/18837 Midodrine Hcl (Midodrine Hcl) 2.5 Mg Tablet, 2.5 MG PO TID, (Reported) Entered as Reported by: AVA NOONAN on 11/15/18837 Pantoprazole Sodium (Protonix ) 40 Mg Tablet.dr, 1 TAB PO DAILY, #30 Ref 5 Prescribed by: NEW THOMSON on 10/20/16 1222 Last Action: Continued on 05/12/20 160 by DINAH CRAFT MD Polyethylene Glycol 3350 (Miralax) 17 Gm Powd.pack, 1 PACKET PO DAILY, #30 Ref 3 (Reported) Entered as Reported by: AVA NOONAN on 11/15/18837 Last Action: Continued on 05/12/20 160 by DINAH CRAFT MD Potassium Chloride (Klor-Con M20) 20 Meq Tab.er.prt, 20 MEQ PO DAILY for supplement, (Reported) Entered as Reported by: Louann Ann on 03/29/201809 Pyridostigmine Narka (Pyridostigmine Narka) 60 Mg Tablet, 30 MG PO QID for muacle relax, (Reported) Entered as Reported by: SUSANA HERNANDEZ on 11/15/18 120 Pyridoxine Hcl (Pyridoxine Hcl ) 25 Mg Tablet, 25 MG PO BID, (Reported) Entered as Reported by: AVA NOONAN on 11/15/18837 Last Action: Continued on 05/12/201604 by DINAH CRAFT MD Tamsulosin Hcl (Flomax) 0.4 Mg Cap.er.24h, 1 CAP PO DAILY for bladder control, #30 Ref 11 (Reported) Entered as Reported by: Louann Ann on 03/29/201809 Last Action: Continued on 05/12/201604 by DINAH CRAFT MD Thiamine Mononitrate (Vitamin B-1) 100 Mg Tablet, 100 MG PO DAILY, (Reported) Entered as Reported by: AVA NOONAN on 11/15/18837 Last Action: Continued on 05/12/201604 by DINAH CRAFT MD Scheduled PRN Cyclobenzaprine Hcl (Cyclobenzaprine Hcl) 5 Mg Tablet, 5 MG PO TID PRN for MUS DIONTE SPASMS, (Reported) Entered as Reported by: Louann Ann on 03/29/201809 Discontinued Medications Alprazolam (Alprazolam) 0.25 Mg Tablet, 0.25 MG PO PRN Q8HRS PRN for ANXIETY / AGITATION, #60 Prescribed by: NEW THOMSON on 11/21/18 0928 Amiodarone Hcl (Amiodarone Hcl) 200 Mg Tablet, 200 MG PO DAILY for heart for 30 Days, #30 Prescribed by: DAQUAN TANG MD on 09/22/18 1439 Last Action: Continued on 05/12/201604 by DINAH CRAFT MD Justicifation of Admission Dx: Justifications for Admission: Justification of Admission Dx: Yes DINAH CRAFT MD May 16, 2020 13:40
[2020-05-16 15:00] VITALS: BP 147/74
--- NOTE | 2020-05-16 16:10 | NUR ---
Nurse exchange report called to EDINSON Greco at [place] . Nurse notified that [facility] will be caring for pt and has been in contact with pt daughter. EMS is transporting pt to facility.
--- NOTE | 2020-05-16 16:37 | NUR ---
SW following for discharge planning. Spoke with RN and reviewed chart. SW consulted to assist with hospice referral. Spoke with caregiver/friend Dior ([phone]) as well as pt's daughter Sherrell ([phone]). Pt's daughter electing hospice and stated no preference in provider. Referral sent to [facility]. Patient choice of vendor form completed. Coordinated care with Elaine from [facility]. Pt to discharge back to [facility] today, 05/16 with orders to admit to hospice. Transportation arranged for 1600. SW confirmed discharge orders were received. RN to call report. No further SW needs.
== END 2020-05-16 15:40 | disposition hospice, inpatient (51) | DRG 177 ==
LOC: ER 17:34 → ED HOLD 23:12 → 6 SOUTH 05-08 01:40 → OBSVTOIN 05-08 10:39
PROVIDERS: ADMIT Family Medicine; ATTEND Family Medicine
DX: U07.1 COVID-19 (principal); J96.01 Acute respiratory failure with hypoxia; J18.9 Pneumonia, unspecified organism; G93.41 Metabolic encephalopathy; B34.9 Viral infection, unspecified; F03.90 Unspecified dementia, unspecified severity, without behavioral disturbance, psychotic disturbance, mood disturbance, and anxiety; F41.9 Anxiety disorder, unspecified; I11.0 Hypertensive heart disease with heart failure; I25.10 Atherosclerotic heart disease of native coronary artery without angina pectoris; I25.2 Old myocardial infarction; I50.9 Heart failure, unspecified; N20.0 Calculus of kidney; R62.7 Adult failure to thrive; Y95 Nosocomial condition; Z20.822 Contact with and (suspected) exposure to COVID-19; Z63.8 Other specified problems related to primary support group; Z87.442 Personal history of urinary calculi; Z87.891 Personal history of nicotine dependence; Z95.5 Presence of coronary angioplasty implant and graft; G89.29 Other chronic pain
CPT/HCPCS: 36415; 71045; 80048; 80053; 81001; 83735; 84100; 85025; 87804; 93005; 96365; 96375; G0378; G0379; J0456; J0696; J1100; J1630; J1650; J2270; J2405; J3475; J3480; J3490; J7030; J7042; J7050; U0003; 92610-GN; 97116-GP; 97530-GO; 97530-GP; 97535-GO; 99285-25